=== PATIENT | male | born 1940 | race Caucasian/White ===

== ENCOUNTER → 2020-03-20 09:33 | Outpatient (BNVA) | payer MEDICARE, SELFPAY | PROVIDERS: PCP Internal Medicine; Referring Provider Internal Medicine; Visit Provider Internal Medicine | DX: Z86.718 Personal history of other venous thrombosis and embolism (principal); Z95.2 Presence of prosthetic heart valve; Z51.81 Encounter for therapeutic drug level monitoring; Z79.01 Long term (current) use of anticoagulants | CPT/HCPCS: 85610; 99211 ==

== ENCOUNTER → 2020-04-10 08:20 | Outpatient (BNVA) | payer MEDICARE, SELFPAY | PROVIDERS: PCP Internal Medicine; Visit Provider Internal Medicine | DX: Z86.718 Personal history of other venous thrombosis and embolism (principal); Z95.2 Presence of prosthetic heart valve; Z51.81 Encounter for therapeutic drug level monitoring; Z79.01 Long term (current) use of anticoagulants | CPT/HCPCS: 85610; 99211 ==

== ENCOUNTER → 2020-05-01 08:12 | Outpatient (BNVA) | payer MEDICARE, SELFPAY | PROVIDERS: PCP Internal Medicine; Visit Provider Internal Medicine | DX: Z86.718 Personal history of other venous thrombosis and embolism (principal); Z95.2 Presence of prosthetic heart valve; Z51.81 Encounter for therapeutic drug level monitoring; Z79.01 Long term (current) use of anticoagulants | CPT/HCPCS: 85610; 99211 ==

== ENCOUNTER → 2020-05-09 14:26 | Outpatient (BNVA) | payer MEDICARE, SELFPAY | PROVIDERS: PCP Internal Medicine; Referring Provider Internal Medicine; Visit Provider Internal Medicine | DX: Z86.718 Personal history of other venous thrombosis and embolism (principal); Z95.2 Presence of prosthetic heart valve; Z51.81 Encounter for therapeutic drug level monitoring; Z79.01 Long term (current) use of anticoagulants | CPT/HCPCS: 85610; 99211 ==

== ENCOUNTER → 2020-05-16 14:20 | Outpatient (BNVA) | payer MEDICARE, SELFPAY | PROVIDERS: PCP Internal Medicine; Visit Provider Internal Medicine | DX: Z86.718 Personal history of other venous thrombosis and embolism (principal); Z95.2 Presence of prosthetic heart valve; Z51.81 Encounter for therapeutic drug level monitoring; Z79.01 Long term (current) use of anticoagulants | CPT/HCPCS: 85610; 99211 ==

== ENCOUNTER → 2020-05-22 08:56 | Outpatient (BNVA) | payer MEDICARE, SELFPAY | PROVIDERS: PCP Internal Medicine; Referring Provider Internal Medicine; Visit Provider Internal Medicine Cardiovascular Disease | DX: I50.32 Chronic diastolic (congestive) heart failure (principal); R60.0 Localized edema; Z95.2 Presence of prosthetic heart valve | CPT/HCPCS: 99212 ==

== ENCOUNTER → 2020-05-30 14:25 | Outpatient (BNVA) | payer MEDICARE, SELFPAY | PROVIDERS: PCP Internal Medicine; Visit Provider Internal Medicine | DX: Z95.2 Presence of prosthetic heart valve (principal); Z51.81 Encounter for therapeutic drug level monitoring; Z79.01 Long term (current) use of anticoagulants | CPT/HCPCS: 85610; 99211 ==

== ENCOUNTER → 2020-06-14 13:04 | Outpatient (BNVA) | payer MEDICARE, SELFPAY | PROVIDERS: PCP Internal Medicine; Visit Provider Internal Medicine | DX: Z95.2 Presence of prosthetic heart valve (principal); Z51.81 Encounter for therapeutic drug level monitoring; Z79.01 Long term (current) use of anticoagulants | CPT/HCPCS: 85610; 99211 ==

== ENCOUNTER → 2020-07-07 08:27 | Outpatient (BNVA) | payer MEDICARE, SELFPAY | PROVIDERS: PCP Internal Medicine; Visit Provider Internal Medicine | DX: Z95.2 Presence of prosthetic heart valve (principal); Z51.81 Encounter for therapeutic drug level monitoring; Z79.01 Long term (current) use of anticoagulants | CPT/HCPCS: 85610; 99211 ==

== ENCOUNTER → 2020-07-20 14:14 | Outpatient (BNVA) | payer MEDICARE, SELFPAY | PROVIDERS: PCP Internal Medicine; Visit Provider Internal Medicine | DX: Z95.2 Presence of prosthetic heart valve (principal); Z51.81 Encounter for therapeutic drug level monitoring; Z79.01 Long term (current) use of anticoagulants | CPT/HCPCS: 85610; 99211 ==

== ENCOUNTER → 2020-08-03 13:55 | Outpatient (BNVA) | payer MEDICARE, SELFPAY | PROVIDERS: PCP Internal Medicine; Visit Provider Internal Medicine | DX: Z95.2 Presence of prosthetic heart valve (principal); Z51.81 Encounter for therapeutic drug level monitoring; Z79.01 Long term (current) use of anticoagulants | CPT/HCPCS: 85610; 99211 ==

== ENCOUNTER → 2020-08-17 13:56 | Outpatient (BNVA) | payer MEDICARE, SELFPAY | PROVIDERS: PCP Internal Medicine; Visit Provider Internal Medicine | DX: Z95.2 Presence of prosthetic heart valve (principal); Z51.81 Encounter for therapeutic drug level monitoring; Z79.01 Long term (current) use of anticoagulants | CPT/HCPCS: 85610; 99211 ==

== ENCOUNTER → 2020-08-31 13:57 | Outpatient (BNVA) | payer MEDICARE, SELFPAY | PROVIDERS: PCP Internal Medicine; Visit Provider Internal Medicine | DX: Z95.2 Presence of prosthetic heart valve (principal); Z51.81 Encounter for therapeutic drug level monitoring; Z79.01 Long term (current) use of anticoagulants | CPT/HCPCS: 85610; 99211 ==

== ENCOUNTER → 2020-09-14 14:00 | Outpatient (BNVA) | payer MEDICARE, SELFPAY | PROVIDERS: PCP Internal Medicine; Visit Provider Internal Medicine | DX: Z95.2 Presence of prosthetic heart valve (principal); Z51.81 Encounter for therapeutic drug level monitoring; Z79.01 Long term (current) use of anticoagulants | CPT/HCPCS: 85610; 99211 ==

== ENCOUNTER → 2020-09-28 13:56 | Outpatient (BNVA) | payer MEDICARE, SELFPAY | PROVIDERS: PCP Internal Medicine; Visit Provider Internal Medicine | DX: Z95.0 Presence of cardiac pacemaker (principal); Z79.01 Long term (current) use of anticoagulants; Z51.81 Encounter for therapeutic drug level monitoring | CPT/HCPCS: 85610; 99211 ==

== ENCOUNTER → 2020-10-05 14:09 | Outpatient (BNVA) | payer MEDICARE, SELFPAY | PROVIDERS: PCP Internal Medicine; Visit Provider Internal Medicine | DX: Z95.2 Presence of prosthetic heart valve (principal); Z79.01 Long term (current) use of anticoagulants; Z51.81 Encounter for therapeutic drug level monitoring | CPT/HCPCS: 85610; 99211 ==

== ENCOUNTER → 2020-10-19 14:15 | Outpatient (BNVA) | payer MEDICARE, SELFPAY | PROVIDERS: PCP Internal Medicine; Visit Provider Internal Medicine | DX: Z95.2 Presence of prosthetic heart valve (principal); Z79.01 Long term (current) use of anticoagulants; Z51.81 Encounter for therapeutic drug level monitoring | CPT/HCPCS: 85610; 99211 ==

== ENCOUNTER → 2020-11-02 13:52 | Outpatient (BNVA) | payer MEDICARE, SELFPAY | PROVIDERS: PCP Internal Medicine; Visit Provider Internal Medicine | DX: Z95.2 Presence of prosthetic heart valve (principal); Z51.81 Encounter for therapeutic drug level monitoring; Z79.01 Long term (current) use of anticoagulants | CPT/HCPCS: 85610; 99211 ==

== ENCOUNTER → 2020-11-16 14:10 | Outpatient (BNVA) | payer MEDICARE, SELFPAY | PROVIDERS: PCP Internal Medicine; Visit Provider Internal Medicine | DX: Z95.2 Presence of prosthetic heart valve (principal); Z51.81 Encounter for therapeutic drug level monitoring; Z79.01 Long term (current) use of anticoagulants | CPT/HCPCS: 85610; 99211 ==

== ENCOUNTER → 2020-11-27 09:03 | Outpatient (BNVA) | payer MEDICARE, SELFPAY | PROVIDERS: PCP Internal Medicine; Visit Provider Internal Medicine Cardiovascular Disease | DX: I50.32 Chronic diastolic (congestive) heart failure (principal); Z95.810 Presence of automatic (implantable) cardiac defibrillator; Z95.2 Presence of prosthetic heart valve | CPT/HCPCS: 93005; 99212 ==

== ENCOUNTER → 2020-12-07 13:52 | Outpatient (BNVA) | payer MEDICARE, SELFPAY | PROVIDERS: PCP Internal Medicine; Visit Provider Internal Medicine | DX: Z95.2 Presence of prosthetic heart valve (principal); Z51.81 Encounter for therapeutic drug level monitoring; Z79.01 Long term (current) use of anticoagulants | CPT/HCPCS: 85610; 99211 ==

== ENCOUNTER → 2020-12-14 13:53 | Outpatient (BNVA) | payer MEDICARE, SELFPAY | PROVIDERS: PCP Internal Medicine; Visit Provider Internal Medicine | DX: Z95.2 Presence of prosthetic heart valve (principal); Z51.81 Encounter for therapeutic drug level monitoring; Z79.01 Long term (current) use of anticoagulants | CPT/HCPCS: 85610; 99211 ==

== ENCOUNTER → 2020-12-28 14:02 | Outpatient (BNVA) | payer MEDICARE, SELFPAY | PROVIDERS: PCP Internal Medicine; Visit Provider Internal Medicine | DX: Z95.2 Presence of prosthetic heart valve (principal); Z51.81 Encounter for therapeutic drug level monitoring; Z79.01 Long term (current) use of anticoagulants | CPT/HCPCS: 85610; 99211 ==

== ENCOUNTER → 2021-01-04 14:08 | Outpatient (BNVA) | payer MEDICARE, SELFPAY | PROVIDERS: PCP Internal Medicine; Visit Provider Internal Medicine | DX: Z95.2 Presence of prosthetic heart valve (principal); Z51.81 Encounter for therapeutic drug level monitoring; Z79.01 Long term (current) use of anticoagulants | CPT/HCPCS: 85610; 99211 ==

== ENCOUNTER → 2021-01-18 14:00 | Outpatient (BNVA) | payer MEDICARE, SELFPAY | PROVIDERS: PCP Internal Medicine; Visit Provider Internal Medicine | DX: Z95.2 Presence of prosthetic heart valve (principal); Z51.81 Encounter for therapeutic drug level monitoring; Z79.01 Long term (current) use of anticoagulants | CPT/HCPCS: 85610; 99211 ==

== ENCOUNTER → 2021-02-01 13:42 | Outpatient (BNVA) | payer MEDICARE, SELFPAY | PROVIDERS: PCP Internal Medicine; Visit Provider Internal Medicine | DX: Z95.2 Presence of prosthetic heart valve (principal); Z51.81 Encounter for therapeutic drug level monitoring; Z79.01 Long term (current) use of anticoagulants | CPT/HCPCS: 85610; 99211 ==

== ENCOUNTER → 2021-02-15 13:56 | Outpatient (BNVA) | payer MEDICARE, SELFPAY | PROVIDERS: PCP Internal Medicine; Visit Provider Internal Medicine | DX: Z95.2 Presence of prosthetic heart valve (principal); Z51.81 Encounter for therapeutic drug level monitoring; Z79.01 Long term (current) use of anticoagulants | CPT/HCPCS: 85610; 99211 ==

== ENCOUNTER 2021-02-28 12:36 | Outpatient (REF) | payer MEDICARE, SELFPAY ==
[2021-02-28 13:34] LABS: MANUAL DIFF FLAG NO
[2021-02-28 14:07] LABS: Basophils Percent Auto 0.4 % (0-2); Eosinophils Absolute Auto 0.1 X10*3/uL (0.0-0.4); Eosinophils Percent Auto 1.8 % (0-4); Hematocrit 42.1 % (42-52); Hemoglobin 13.7 g/dl (14.0-18.0); Imm Gran Abs Auto 0.02 X10*3/uL (0.00-0.03); Imm Gran Pct Auto 0.3 % (0.0-0.4); Lymphocytes Absolute Auto 1.9 X10*3/uL (1.2-4.9); Mean Corpuscular HGB Conc 32.5 g/dl (31.0-36.0); Mean Corpuscular Hemoglobin 30.9 pg (27.0-33.0); Mean Corpuscular Volume 94.8 fL (80-98); Mean Platelet Volume 10.8 fL (9.4-12.4); Monocytes Absolute Auto 0.7 X10*3/uL (0.1-1.2); Monocytes Percent Auto 9.2 % (2-11); Neutrophils Absolute Auto 4.8 X10*3/uL (2.0-8.3); Neutrophils Percent Auto 63.3 % (45-73); Platelet Count 152 X10*3/uL (160-400); Red Blood Count 4.44 X10*6/uL (4.60-5.80); Red Cell Distribution Width 13.3 % (11.0-16.0); White Blood Count 7.6 X10*3/uL (4.8-10.8)
[2021-02-28 14:35] LABS: Alanine Aminotransferase 23 U/L (0-40); Albumin Level 4.1 g/dL (3.5-5.0); Alkaline Phosphatase 65 U/L (39-117); Anion Gap 12 (12-20); Aspartate Amino Transferase 31 U/L (5-37); Blood Urea Nitrogen 21 mg/dL (9-16); Calcium 9.7 mg/dL (8.4-10.2); Carbon Dioxide 30 mmol/L (22-29); Chloride 103 mmol/L (96-108); Cholesterol 140 mg/dL; Estimated Glomerular Filt Rate 57; Glucose Fasting 109 mg/dL (60-99); HDL Cholesterol 37 mg/dL; LDL Cholesterol Calculated 77 mg/dl; Sodium 141 mmol/L (135-145); Total Protein 7.2 g/dL (6.5-8.0); Triglycerides 130 mg/dL
[2021-02-28 14:43] LABS: Thyroid Stimulating Hormone 1.98 uIU/mL (0.32-4.0)
== END 2021-02-28 12:37 | disposition home or self-care (01) ==
LOC: HO.LAB 12:36
PROVIDERS: PCP Internal Medicine; Visit Provider Internal Medicine
DX: I11.0 Hypertensive heart disease with heart failure (principal); I50.22 Chronic systolic (congestive) heart failure; E78.5 Hyperlipidemia, unspecified; Z95.2 Presence of prosthetic heart valve
CPT/HCPCS: 36415; 80053; 80061; 84443; 85025

== ENCOUNTER → 2021-03-01 13:54 | Outpatient (BNVA) | payer MEDICARE, SELFPAY | PROVIDERS: PCP Internal Medicine; Visit Provider Internal Medicine | DX: Z95.2 Presence of prosthetic heart valve (principal); Z51.81 Encounter for therapeutic drug level monitoring; Z79.01 Long term (current) use of anticoagulants | CPT/HCPCS: 85610; 99211 ==

== ENCOUNTER → 2021-03-05 09:29 | Outpatient (BNVA) | payer MEDICARE, SELFPAY | PROVIDERS: PCP Internal Medicine; Referring Provider Internal Medicine; Visit Provider Internal Medicine Cardiovascular Disease | DX: I50.32 Chronic diastolic (congestive) heart failure (principal); Z95.2 Presence of prosthetic heart valve; Z95.810 Presence of automatic (implantable) cardiac defibrillator | CPT/HCPCS: 99212 ==

== ENCOUNTER → 2021-03-15 14:04 | Outpatient (BNVA) | payer MEDICARE, SELFPAY | PROVIDERS: PCP Internal Medicine; Visit Provider Internal Medicine | DX: Z95.2 Presence of prosthetic heart valve (principal); Z51.81 Encounter for therapeutic drug level monitoring; Z79.01 Long term (current) use of anticoagulants | CPT/HCPCS: 85610; 99211 ==

== ENCOUNTER → 2021-03-29 10:26 | Outpatient (BNVA) | payer MEDICARE, SELFPAY | PROVIDERS: PCP Internal Medicine; Visit Provider Internal Medicine | DX: Z95.2 Presence of prosthetic heart valve (principal); Z51.81 Encounter for therapeutic drug level monitoring; Z79.01 Long term (current) use of anticoagulants | CPT/HCPCS: 85610; 99211 ==

== ENCOUNTER → 2021-04-12 14:05 | Outpatient (BNVA) | payer MEDICARE, SELFPAY | PROVIDERS: PCP Internal Medicine; Visit Provider Internal Medicine | DX: Z95.2 Presence of prosthetic heart valve (principal); Z51.81 Encounter for therapeutic drug level monitoring; Z79.01 Long term (current) use of anticoagulants | CPT/HCPCS: 85610; 99211 ==

== ENCOUNTER → 2021-04-26 13:59 | Outpatient (BNVA) | payer MEDICARE, SELFPAY | PROVIDERS: PCP Internal Medicine; Visit Provider Internal Medicine | DX: Z95.2 Presence of prosthetic heart valve (principal); Z79.01 Long term (current) use of anticoagulants; Z51.81 Encounter for therapeutic drug level monitoring | CPT/HCPCS: 85610; 99211 ==

== ENCOUNTER → 2021-05-15 14:01 | Outpatient (BNVA) | payer MEDICARE, SELFPAY | PROVIDERS: PCP Internal Medicine; Visit Provider Internal Medicine | DX: Z95.2 Presence of prosthetic heart valve (principal); Z51.81 Encounter for therapeutic drug level monitoring; Z79.01 Long term (current) use of anticoagulants | CPT/HCPCS: 85610; 99211 ==

== ENCOUNTER → 2021-05-24 14:05 | Outpatient (BNVA) | payer MEDICARE, SELFPAY | PROVIDERS: PCP Internal Medicine; Visit Provider Internal Medicine | DX: Z95.2 Presence of prosthetic heart valve (principal); Z51.81 Encounter for therapeutic drug level monitoring; Z79.01 Long term (current) use of anticoagulants | CPT/HCPCS: 85610; 99211 ==

== ENCOUNTER → 2021-05-28 09:22 | Outpatient (BNVA) | payer MEDICARE, SELFPAY | PROVIDERS: PCP Internal Medicine; Visit Provider Internal Medicine Cardiovascular Disease | DX: I50.32 Chronic diastolic (congestive) heart failure (principal); Z95.2 Presence of prosthetic heart valve; Z95.810 Presence of automatic (implantable) cardiac defibrillator; Z79.82 Long term (current) use of aspirin | CPT/HCPCS: 99212 ==

== ENCOUNTER → 2021-06-07 13:57 | Outpatient (BNVA) | payer MEDICARE, SELFPAY | PROVIDERS: PCP Internal Medicine; Visit Provider Internal Medicine | DX: Z95.2 Presence of prosthetic heart valve (principal); Z51.81 Encounter for therapeutic drug level monitoring; Z79.01 Long term (current) use of anticoagulants | CPT/HCPCS: 85610; 99211 ==

== ENCOUNTER → 2021-06-14 14:03 | Outpatient (BNVA) | payer MEDICARE, SELFPAY | PROVIDERS: PCP Internal Medicine; Visit Provider Internal Medicine | DX: Z95.2 Presence of prosthetic heart valve (principal); Z51.81 Encounter for therapeutic drug level monitoring; Z79.01 Long term (current) use of anticoagulants | CPT/HCPCS: 85610; 99211 ==

== ENCOUNTER → 2021-06-28 13:58 | Outpatient (BNVA) | payer MEDICARE, SELFPAY | PROVIDERS: PCP Internal Medicine; Visit Provider Internal Medicine | DX: Z95.2 Presence of prosthetic heart valve (principal); Z51.81 Encounter for therapeutic drug level monitoring; Z79.01 Long term (current) use of anticoagulants | CPT/HCPCS: 85610; 99211 ==

== ENCOUNTER → 2021-07-12 13:59 | Outpatient (BNVA) | payer MEDICARE, SELFPAY | PROVIDERS: PCP Internal Medicine; Visit Provider Internal Medicine | DX: Z95.2 Presence of prosthetic heart valve (principal); Z51.81 Encounter for therapeutic drug level monitoring; Z79.01 Long term (current) use of anticoagulants | CPT/HCPCS: 85610; 99211 ==

== ENCOUNTER → 2021-07-26 14:06 | Outpatient (BNVA) | payer MEDICARE, SELFPAY | PROVIDERS: PCP Internal Medicine; Visit Provider Internal Medicine | DX: Z95.2 Presence of prosthetic heart valve (principal); Z51.81 Encounter for therapeutic drug level monitoring; Z79.01 Long term (current) use of anticoagulants | CPT/HCPCS: 85610; 99211 ==

== ENCOUNTER → 2021-08-02 14:03 | Outpatient (BNVA) | payer MEDICARE, SELFPAY | PROVIDERS: PCP Internal Medicine; Visit Provider Internal Medicine | DX: Z95.2 Presence of prosthetic heart valve (principal); Z51.81 Encounter for therapeutic drug level monitoring; Z79.01 Long term (current) use of anticoagulants | CPT/HCPCS: 85610; 99211 ==

== ENCOUNTER → 2021-08-16 14:01 | Outpatient (BNVA) | payer MEDICARE, SELFPAY | PROVIDERS: PCP Internal Medicine; Visit Provider Internal Medicine | DX: Z95.2 Presence of prosthetic heart valve (principal); Z51.81 Encounter for therapeutic drug level monitoring; Z79.01 Long term (current) use of anticoagulants | CPT/HCPCS: 85610; 99211 ==

== ENCOUNTER → 2021-08-30 14:06 | Outpatient (BNVA) | payer MEDICARE, SELFPAY | PROVIDERS: PCP Internal Medicine; Visit Provider Internal Medicine | DX: Z95.2 Presence of prosthetic heart valve (principal); Z79.01 Long term (current) use of anticoagulants; Z51.81 Encounter for therapeutic drug level monitoring | CPT/HCPCS: 85610; 99211 ==

== ENCOUNTER → 2021-09-04 14:03 | Outpatient (BNVA) | payer MEDICARE, SELFPAY | PROVIDERS: PCP Internal Medicine; Visit Provider Internal Medicine | DX: Z95.2 Presence of prosthetic heart valve (principal); Z51.81 Encounter for therapeutic drug level monitoring; Z79.01 Long term (current) use of anticoagulants | CPT/HCPCS: 85610; 99211 ==

== ENCOUNTER → 2021-09-11 07:29 | Outpatient (REF) | payer MEDICARE, SELFPAY ==
--- NOTE | 2021-09-11 07:33 | CA_ITS ---
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 The visually estimated ejection fraction is between 65-70%. - Mildly increased right ventricular cavity size. - A mechanical prosthetic aortic valve is present. The prosthetic aortic valve appears to be functioning normally. - Mild pulmonary hypertension is present. - There is mild dilatation of the ascending aorta measuring 4.20 cm. Findings Left Ventricle Normal left ventricular cavity size. There is mildly increased left ventricular wall thickness. The left ventricular systolic function is normal. The visually estimated ejection fraction is between 65-70%. There is no evidence of regional wall motion abnormalities. E/E prime ratio is >15, consistent with elevated filling pressures. Evidence suggests grade I (mild) diastolic dysfunction. Right Ventricle Mildly increased right ventricular cavity size. There is normal right ventricular systolic function. There is a pacemaker wire seen in the right ventricle. Atria The left atrium is mildly dilated. The right atrium is normal in size. Aortic Valve A mechanical prosthetic aortic valve is present. The prosthetic aortic valve appears to be functioning normally. The peak aortic velocity is 3.03 m/s with a calculated peak gradient of 37 mmHg. The mean gradient is 21 mmHg. The aortic valve area is 1.31 cm2. Acceleration time 61ms. Mitral Valve There is mild mitral annular calcification. There is trace mitral valve regurgitation. There is no mitral valve stenosis. Pulmonic Valve The pulmonic valve was not well visualized. Tricuspid Valve There is mild tricuspid valve regurgitation. The right ventricular systolic pressure is 37 mmHg. Mild pulmonary hypertension is present. Great Vessels There is mild dilatation of the ascending aorta measuring 4.20 cm. Small plaque is seen in the sinuses of Valsalva. Venous The inferior vena cava was not well visualized. The inferior vena cava is normal in size. Pericardium/Pleural There is no evidence of pericardial effusion. Prior Study Comparison Changes noted compared to prior study dated: 06/07/2019. LVOT diameter is measured slightly larger than previous study; hence calculated effective orifice area is also higher. Overall, probably normal function. LVEF also higher than prior study. Ascending aortic size slightly larger. Measurements 2D Linear Measurements IVSd: 1.17 0.6-0.9/0.6-1.0 cm LVIDd: 5.01 3.9-5.3/4.2-5.9 cm LVIDd Index: 2.14 2.4-3.2/2.2-3.1 cm/m2 LVIDs: 3.02 2.0-3.6 cm LVPWd: 1.10 0.7-1.1 cm LA Diam: 4.90 2.7-3.8/3.0-4.0 cm LAIDs Index: 2.09 1.5-2.3 cm/m2 LV Mass: 270.48 67-162/88-224 g LV Mass Index: 115.59 43-95/49-115 g/m2 LVOT Diam: 2.10 3.0+(-)1.3 cm Mitral Valve MV Pk E: 1.11 MV PK A: 1.14 MV Decel Time: 247.00 E/A: 1.00 E'Lateral: 6.42 E'Medial: 6.31 E/E' Med: 17.60 E/E' Lat: 17.30 PHT: 72.00 MVA PHT: 3.06 Decel Avery: 4.49 Aortic Valve AoV Pk Jordi: 3.03 AoV Mn Jodri: 2.14 AoV VTI: 0.55 AoV Pk Grad: 37.00 Aov Mn Grad: 21.00 NA Cont.VTI: 1.31 LVOT LVOT Pk Jordi: 1.00 LVOT Mn Jordi: 0.75 LVOT VTI: 0.21 LVOT Pk Grad: 4.00 LVOT Mn Grad: 2.00 LVOT Diam: 2.10 LVOT Area: 3.46 Diastolic Function MV Pk E: 1.11 MV Pk A: 1.14 E/A: 1.00 E'Medial: 6.31 E/E' Med: 17.60 E' Laterial: 6.42 E/E' Lat: 17.30 Right Ventricle TAPSE (mm): 1.83 TVS' Jordi: 11.00 Tricuspid Valve TR Pk Jordi: 2.67 TR Pk Grad: 29.00 RA Press: 8.00 RVSP: 37.00 Great Vessels Aorta Sinus of Valsalva: 3.41 2.0-3.[address] [place]: 2.22 1.7-3.4 cm Ao Asc: 4.20 2.1-3.4 cm Updated in Other Vendor System with Status of Final Payam Linda MD electronically signed on 09/12/2021 11:11:26 AM with status of Final
== END ==
LOC: HO.CARD 07:29
PROVIDERS: Visit Provider Nurse Practitioner Family
DX: I50.32 Chronic diastolic (congestive) heart failure (principal); Z95.2 Presence of prosthetic heart valve
CPT/HCPCS: 93306

== ENCOUNTER → 2021-09-13 13:59 | Outpatient (BNVA) | payer MEDICARE, SELFPAY | PROVIDERS: PCP Internal Medicine; Visit Provider Internal Medicine | DX: Z95.2 Presence of prosthetic heart valve (principal); Z51.81 Encounter for therapeutic drug level monitoring; Z79.01 Long term (current) use of anticoagulants | CPT/HCPCS: 85610; 99211 ==

== ENCOUNTER → 2021-09-17 09:14 | Outpatient (BNVA) | payer MEDICARE, SELFPAY | PROVIDERS: PCP Internal Medicine; Visit Provider Internal Medicine Cardiovascular Disease | DX: I50.32 Chronic diastolic (congestive) heart failure (principal); Z95.810 Presence of automatic (implantable) cardiac defibrillator | CPT/HCPCS: 93005; 99212 ==

== ENCOUNTER 2021-09-20 13:58 | Outpatient (REF) | payer MEDICARE, SELFPAY ==
[2021-09-20 14:36] LABS: Prothrombin Time 111.2 SEC (9.9-13.0)
[2021-09-20 14:50] LABS: INTERNATIONAL NORM RATIO 9.3 (0.9-1.1)
== END 2021-09-20 13:59 | disposition home or self-care (01) ==
LOC: HO.LAB 13:58
PROVIDERS: PCP Internal Medicine; Visit Provider Internal Medicine
DX: Z95.2 Presence of prosthetic heart valve (principal); Z51.81 Encounter for therapeutic drug level monitoring; Z79.01 Long term (current) use of anticoagulants
CPT/HCPCS: 36415; 85610; 99212

== ENCOUNTER → 2021-09-21 09:54 | Outpatient (BNVA) | payer MEDICARE, SELFPAY | PROVIDERS: PCP Internal Medicine; Visit Provider Internal Medicine | DX: Z95.2 Presence of prosthetic heart valve (principal); Z51.81 Encounter for therapeutic drug level monitoring; Z79.01 Long term (current) use of anticoagulants | CPT/HCPCS: 85610; 99211 ==

== ENCOUNTER → 2021-09-25 14:07 | Outpatient (BNVA) | payer MEDICARE, SELFPAY | PROVIDERS: PCP Internal Medicine; Visit Provider Internal Medicine | DX: Z79.01 Long term (current) use of anticoagulants (principal); Z87.891 Personal history of nicotine dependence; Z88.0 Allergy status to penicillin; Z79.82 Long term (current) use of aspirin; Z79.899 Other long term (current) drug therapy | CPT/HCPCS: 85610; 99211 ==

== ENCOUNTER → 2021-10-04 14:03 | Outpatient (BNVA) | payer MEDICARE, SELFPAY | PROVIDERS: PCP Internal Medicine; Visit Provider Internal Medicine | DX: Z95.2 Presence of prosthetic heart valve (principal); Z79.01 Long term (current) use of anticoagulants; Z51.81 Encounter for therapeutic drug level monitoring | CPT/HCPCS: 85610; 99211 ==

== ENCOUNTER → 2021-10-18 14:00 | Outpatient (BNVA) | payer MEDICARE, SELFPAY | PROVIDERS: PCP Internal Medicine; Visit Provider Internal Medicine | DX: Z95.2 Presence of prosthetic heart valve (principal); Z79.01 Long term (current) use of anticoagulants; Z51.81 Encounter for therapeutic drug level monitoring | CPT/HCPCS: 85610; 99211 ==

== ENCOUNTER → 2021-11-01 14:06 | Outpatient (BNVA) | payer MEDICARE, SELFPAY | PROVIDERS: PCP Internal Medicine; Visit Provider Internal Medicine | DX: Z95.2 Presence of prosthetic heart valve (principal); Z79.01 Long term (current) use of anticoagulants; Z51.81 Encounter for therapeutic drug level monitoring | CPT/HCPCS: 85610; 99211 ==

== ENCOUNTER → 2021-11-15 13:51 | Outpatient (BNVA) | payer MEDICARE, SELFPAY | PROVIDERS: PCP Internal Medicine; Visit Provider Internal Medicine | DX: Z95.2 Presence of prosthetic heart valve (principal); Z79.01 Long term (current) use of anticoagulants; Z51.81 Encounter for therapeutic drug level monitoring | CPT/HCPCS: 85610; 99211 ==

== ENCOUNTER 2021-11-28 08:09 | Outpatient (REF) | payer MEDICARE, SELFPAY ==
[2021-11-28 08:47] LABS: MANUAL DIFF FLAG NO
[2021-11-28 09:40] LABS: Basophils Percent Auto 0.5 % (0-2); Eosinophils Absolute Auto 0.2 X10*3/uL (0.0-0.4); Eosinophils Percent Auto 2.1 % (0-4); Hematocrit 44.2 % (42.0-52.0); Hemoglobin 14.2 g/dl (14.0-18.0); Imm Gran Abs Auto 0.03 X10*3/uL (0.00-0.03); Imm Gran Pct Auto 0.4 % (0.0-0.4); Lymphocytes Absolute Auto 1.7 X10*3/uL (1.2-4.9); Lymphocytes Percent Auto 21.9 % (20-40); Mean Corpuscular HGB Conc 32.1 g/dl (31.0-36.0); Mean Corpuscular Hemoglobin 30.7 pg (27.0-33.0); Mean Corpuscular Volume 95.7 fL (80.0-98.0); Mean Platelet Volume 10.4 fL (9.4-12.4); Monocytes Absolute Auto 0.8 X10*3/uL (0.1-1.2); Monocytes Percent Auto 10.6 % (2-11); Neutrophils Absolute Auto 4.9 x10*3/uL (2.0-8.3); Neutrophils Percent Auto 64.5 % (45-73); Platelet Count 158 X10*3/uL (160-400); Red Blood Count 4.62 X10*6/uL (4.60-5.80); Red Cell Distribution Width 13.2 % (11.0-16.0); White Blood Count 7.6 X10*3/uL (4.8-10.8)
[2021-11-28 10:10] LABS: Alanine Aminotransferase 20 U/L (0-40); Alkaline Phosphatase 69 U/L (39-117); Anion Gap 10 (12-20); Aspartate Amino Transferase 32 U/L (5-37); Bilirubin Total 1.1 mg/dL (0.0-1.0); Blood Urea Nitrogen 21 mg/dL (9-16); Calcium 9.2 mg/dL (8.4-10.2); Carbon Dioxide 29 mmol/L (22-29); Chloride 107 mmol/L (96-108); Cholesterol 132 mg/dL; Estimated Glomerular Filt Rate > 60; Glucose Fasting 97 mg/dL (60-99); HDL Cholesterol 38 mg/dL; LDL Cholesterol Calculated 80 mg/dl; Potassium 4.2 mmol/L (3.3-5.1); Sodium 142 mmol/L (135-145); Total Protein 7.1 g/dL (6.5-8.0); Triglycerides 70 mg/dL
[2021-11-28 10:25] LABS: Thyroid Stimulating Hormone 1.94 uIU/mL (0.32-4.0); Vitamin D 25-OH Total 36.9 ng/mL (>30)
== END 2021-11-28 08:10 | disposition home or self-care (01) ==
LOC: HO.LAB 08:09
PROVIDERS: PCP Internal Medicine; Visit Provider Internal Medicine
DX: I11.0 Hypertensive heart disease with heart failure (principal); I50.22 Chronic systolic (congestive) heart failure; E78.5 Hyperlipidemia, unspecified; Z95.2 Presence of prosthetic heart valve
CPT/HCPCS: 36415; 80053; 80061; 82306; 84443; 85025

== ENCOUNTER → 2021-11-29 14:02 | Outpatient (BNVA) | payer MEDICARE, SELFPAY | PROVIDERS: PCP Internal Medicine; Visit Provider Internal Medicine | DX: Z95.2 Presence of prosthetic heart valve (principal); Z79.01 Long term (current) use of anticoagulants; Z51.81 Encounter for therapeutic drug level monitoring | CPT/HCPCS: 85610; 99211 ==

== ENCOUNTER → 2021-12-13 14:14 | Outpatient (BNVA) | payer MEDICARE, SELFPAY | PROVIDERS: PCP Internal Medicine; Visit Provider Internal Medicine | DX: Z95.2 Presence of prosthetic heart valve (principal); Z51.81 Encounter for therapeutic drug level monitoring; Z79.01 Long term (current) use of anticoagulants | CPT/HCPCS: 85610; 99211 ==

== ENCOUNTER → 2021-12-27 13:58 | Outpatient (BNVA) | payer MEDICARE, SELFPAY | PROVIDERS: PCP Internal Medicine; Visit Provider Internal Medicine | DX: Z95.2 Presence of prosthetic heart valve (principal); Z51.81 Encounter for therapeutic drug level monitoring; Z79.01 Long term (current) use of anticoagulants | CPT/HCPCS: 85610; 99211 ==

== ENCOUNTER → 2022-01-10 14:00 | Outpatient (BNVA) | payer MEDICARE, SELFPAY | PROVIDERS: PCP Internal Medicine; Visit Provider Internal Medicine | DX: Z95.2 Presence of prosthetic heart valve (principal); Z79.01 Long term (current) use of anticoagulants; Z51.81 Encounter for therapeutic drug level monitoring | CPT/HCPCS: 85610; 99211 ==

== ENCOUNTER → 2022-01-24 13:57 | Outpatient (BNVA) | payer MEDICARE, SELFPAY | PROVIDERS: PCP Internal Medicine; Visit Provider Internal Medicine | DX: Z95.2 Presence of prosthetic heart valve (principal); Z79.01 Long term (current) use of anticoagulants; Z51.81 Encounter for therapeutic drug level monitoring | CPT/HCPCS: 85610; 99211 ==

== ENCOUNTER → 2022-02-05 13:50 | Outpatient (BNVA) | payer MEDICARE, SELFPAY | PROVIDERS: PCP Internal Medicine; Visit Provider Internal Medicine | DX: Z95.2 Presence of prosthetic heart valve (principal); Z79.01 Long term (current) use of anticoagulants; Z51.81 Encounter for therapeutic drug level monitoring | CPT/HCPCS: 85610; 99211 ==

== ENCOUNTER → 2022-02-21 13:56 | Outpatient (BNVA) | payer MEDICARE, SELFPAY | PROVIDERS: PCP Internal Medicine; Visit Provider Internal Medicine | DX: Z45.02 Encounter for adjustment and management of automatic implantable cardiac defibrillator (principal); I25.10 Atherosclerotic heart disease of native coronary artery without angina pectoris; I50.32 Chronic diastolic (congestive) heart failure; Z95.2 Presence of prosthetic heart valve; Z79.01 Long term (current) use of anticoagulants; Z51.81 Encounter for therapeutic drug level monitoring | CPT/HCPCS: 85610; 99211; 99212 ==

== ENCOUNTER → 2022-03-07 13:55 | Outpatient (BNVA) | payer MEDICARE, SELFPAY | PROVIDERS: PCP Internal Medicine; Visit Provider Internal Medicine | DX: Z95.2 Presence of prosthetic heart valve (principal); Z79.01 Long term (current) use of anticoagulants; Z51.81 Encounter for therapeutic drug level monitoring | CPT/HCPCS: 85610; 99211 ==

== ENCOUNTER → 2022-03-26 14:09 | Outpatient (BNVA) | payer MEDICARE, SELFPAY | PROVIDERS: PCP Internal Medicine; Visit Provider Internal Medicine | DX: Z95.2 Presence of prosthetic heart valve (principal); Z79.01 Long term (current) use of anticoagulants; Z51.81 Encounter for therapeutic drug level monitoring | CPT/HCPCS: 85610; 99211 ==

== ENCOUNTER → 2022-04-11 13:58 | Outpatient (BNVA) | payer MEDICARE, SELFPAY | PROVIDERS: PCP Internal Medicine; Visit Provider Internal Medicine | DX: Z95.2 Presence of prosthetic heart valve (principal); Z79.01 Long term (current) use of anticoagulants; Z51.81 Encounter for therapeutic drug level monitoring | CPT/HCPCS: 85610; 99211 ==

== ENCOUNTER → 2022-04-25 13:59 | Outpatient (BNVA) | payer MEDICARE, SELFPAY | PROVIDERS: PCP Internal Medicine; Visit Provider Internal Medicine | DX: Z95.2 Presence of prosthetic heart valve (principal); Z79.01 Long term (current) use of anticoagulants; Z51.81 Encounter for therapeutic drug level monitoring | CPT/HCPCS: 85610; 99211 ==

== ENCOUNTER → 2022-05-14 14:10 | Outpatient (BNVA) | payer MEDICARE, SELFPAY | PROVIDERS: PCP Internal Medicine; Visit Provider Internal Medicine | DX: Z95.2 Presence of prosthetic heart valve (principal); Z79.01 Long term (current) use of anticoagulants; Z51.81 Encounter for therapeutic drug level monitoring | CPT/HCPCS: 85610; 99211 ==

== ENCOUNTER → 2022-05-28 14:11 | Outpatient (BNVA) | payer MEDICARE, SELFPAY | PROVIDERS: PCP Internal Medicine; Visit Provider Internal Medicine | DX: Z95.2 Presence of prosthetic heart valve (principal); Z79.01 Long term (current) use of anticoagulants; Z51.81 Encounter for therapeutic drug level monitoring | CPT/HCPCS: 85610; 99211 ==

== ENCOUNTER → 2022-06-06 13:58 | Outpatient (BNVA) | payer MEDICARE, SELFPAY | PROVIDERS: PCP Internal Medicine; Visit Provider Internal Medicine | DX: Z95.2 Presence of prosthetic heart valve (principal); Z79.01 Long term (current) use of anticoagulants; Z51.81 Encounter for therapeutic drug level monitoring | CPT/HCPCS: 85610; 99211 ==

== ENCOUNTER → 2022-06-20 13:58 | Outpatient (BNVA) | payer MEDICARE, SELFPAY | PROVIDERS: PCP Internal Medicine; Visit Provider Internal Medicine | DX: Z95.2 Presence of prosthetic heart valve (principal); Z79.01 Long term (current) use of anticoagulants; Z51.81 Encounter for therapeutic drug level monitoring | CPT/HCPCS: 85610; 99211 ==

== ENCOUNTER → 2022-07-01 08:55 | Outpatient (BNVA) | payer MEDICARE, SELFPAY | PROVIDERS: PCP Internal Medicine; Referring Provider Internal Medicine; Visit Provider Internal Medicine Cardiovascular Disease | DX: I50.32 Chronic diastolic (congestive) heart failure (principal); R60.0 Localized edema; Z95.2 Presence of prosthetic heart valve | CPT/HCPCS: 93005; 99212 ==

== ENCOUNTER → 2022-07-04 13:58 | Outpatient (BNVA) | payer MEDICARE, SELFPAY | PROVIDERS: PCP Internal Medicine; Visit Provider Internal Medicine | DX: Z95.2 Presence of prosthetic heart valve (principal); Z79.01 Long term (current) use of anticoagulants; Z51.81 Encounter for therapeutic drug level monitoring | CPT/HCPCS: 85610; 99211 ==

== ENCOUNTER → 2022-07-11 14:03 | Outpatient (BNVA) | payer MEDICARE, SELFPAY | PROVIDERS: PCP Internal Medicine; Visit Provider Internal Medicine | DX: Z95.2 Presence of prosthetic heart valve (principal); Z79.01 Long term (current) use of anticoagulants; Z51.81 Encounter for therapeutic drug level monitoring | CPT/HCPCS: 85610; 99211 ==

== ENCOUNTER → 2022-07-18 14:08 | Outpatient (BNVA) | payer MEDICARE, SELFPAY | PROVIDERS: PCP Internal Medicine; Visit Provider Internal Medicine | DX: Z95.2 Presence of prosthetic heart valve (principal); Z79.01 Long term (current) use of anticoagulants; Z51.81 Encounter for therapeutic drug level monitoring | CPT/HCPCS: 85610; 99211 ==

== ENCOUNTER → 2022-08-01 14:08 | Outpatient (BNVA) | payer MEDICARE, SELFPAY | PROVIDERS: PCP Internal Medicine; Visit Provider Internal Medicine | DX: Z95.2 Presence of prosthetic heart valve (principal); Z51.81 Encounter for therapeutic drug level monitoring; Z79.01 Long term (current) use of anticoagulants | CPT/HCPCS: 85610; 99211 ==

== ENCOUNTER → 2022-08-15 13:57 | Outpatient (BNVA) | payer MEDICARE, SELFPAY | PROVIDERS: PCP Internal Medicine; Visit Provider Internal Medicine | DX: Z95.2 Presence of prosthetic heart valve (principal); Z79.01 Long term (current) use of anticoagulants; Z51.81 Encounter for therapeutic drug level monitoring | CPT/HCPCS: 85610; 99211 ==

== ENCOUNTER 2022-08-20 09:56 | Outpatient (REF) | payer MEDICARE, SELFPAY ==
[2022-08-20 11:15] LABS: MANUAL DIFF FLAG NO
[2022-08-20 11:36] LABS: Basophils Absolute Auto 0.1 X10*3/uL (0.0-0.2); Basophils Percent Auto 0.6 % (0-2); Eosinophils Absolute Auto 0.1 X10*3/uL (0.0-0.4); Eosinophils Percent Auto 1.6 % (0-4); Hematocrit 43.8 % (42.0-52.0); Hemoglobin 14.3 g/dl (14.0-18.0); Imm Gran Abs Auto 0.04 X10*3/uL (0.00-0.03); Imm Gran Pct Auto 0.5 % (0.0-0.4); Lymphocytes Absolute Auto 2.4 X10*3/uL (1.2-4.9); Lymphocytes Percent Auto 29.3 % (20-40); Mean Corpuscular HGB Conc 32.6 g/dl (31.0-36.0); Mean Corpuscular Hemoglobin 31.2 pg (27.0-33.0); Mean Corpuscular Volume 95.4 fL (80.0-98.0); Mean Platelet Volume 10.7 fL (9.4-12.4); Monocytes Percent Auto 11.4 % (2-11); Neutrophils Absolute Auto 4.7 x10*3/uL (2.0-8.3); Neutrophils Percent Auto 56.6 % (45-73); Platelet Count 163 X10*3/uL (160-400); Red Blood Count 4.59 X10*6/uL (4.60-5.80); Red Cell Distribution Width 13.1 % (11.0-16.0); White Blood Count 8.3 X10*3/uL (4.8-10.8)
[2022-08-20 12:33] LABS: Alanine Aminotransferase 35 U/L (0-40); Alkaline Phosphatase 73 U/L (39-117); Anion Gap 14 (12-20); Aspartate Amino Transferase 41 U/L (5-37); Blood Urea Nitrogen 20 mg/dL (9-16); Calcium 8.9 mg/dL (8.4-10.2); Carbon Dioxide 29 mmol/L (22-29); Chloride 105 mmol/L (96-108); Cholesterol 130 mg/dL; Estimated Glomerular Filt Rate 58; Glucose Fasting 80 mg/dL (60-99); HDL Cholesterol 34 mg/dL; LDL Cholesterol Calculated 75 mg/dl; Potassium 4.8 mmol/L (3.3-5.1); Sodium 143 mmol/L (135-145); Thyroid Stimulating Hormone 2.69 uIU/mL (0.32-4.0); Triglycerides 109 mg/dL
== END 2022-08-20 09:57 | disposition home or self-care (01) ==
LOC: HO.HMGCLDS 09:56
PROVIDERS: PCP Internal Medicine; Visit Provider Internal Medicine
DX: I11.0 Hypertensive heart disease with heart failure (principal); I50.22 Chronic systolic (congestive) heart failure; E78.5 Hyperlipidemia, unspecified; Z95.2 Presence of prosthetic heart valve
CPT/HCPCS: 36415; 80053; 80061; 84443; 85025

== ENCOUNTER → 2022-08-29 13:59 | Outpatient (BNVA) | payer MEDICARE, SELFPAY | PROVIDERS: PCP Internal Medicine; Visit Provider Internal Medicine | DX: Z95.2 Presence of prosthetic heart valve (principal); Z79.01 Long term (current) use of anticoagulants; Z51.81 Encounter for therapeutic drug level monitoring | CPT/HCPCS: 85610; 99211 ==

== ENCOUNTER → 2022-09-12 14:01 | Outpatient (BNVA) | payer MEDICARE, SELFPAY | PROVIDERS: PCP Internal Medicine; Visit Provider Internal Medicine | DX: Z95.2 Presence of prosthetic heart valve (principal); Z79.01 Long term (current) use of anticoagulants; Z51.81 Encounter for therapeutic drug level monitoring | CPT/HCPCS: 85610; 99211 ==

== ENCOUNTER → 2022-09-26 13:58 | Outpatient (BNVA) | payer MEDICARE, SELFPAY | PROVIDERS: PCP Internal Medicine; Visit Provider Internal Medicine | DX: Z95.2 Presence of prosthetic heart valve (principal); Z51.81 Encounter for therapeutic drug level monitoring; Z79.01 Long term (current) use of anticoagulants | CPT/HCPCS: 85610; 99211 ==

== ENCOUNTER → 2022-10-10 14:20 | Outpatient (BNVA) | payer MEDICARE, SELFPAY | PROVIDERS: PCP Internal Medicine; Visit Provider Internal Medicine | DX: Z95.2 Presence of prosthetic heart valve (principal); Z79.01 Long term (current) use of anticoagulants; Z51.81 Encounter for therapeutic drug level monitoring | CPT/HCPCS: 85610; 99211 ==

== ENCOUNTER → 2022-10-24 13:59 | Outpatient (BNVA) | payer MEDICARE, SELFPAY | PROVIDERS: PCP Internal Medicine; Visit Provider Internal Medicine | DX: Z95.2 Presence of prosthetic heart valve (principal); Z79.01 Long term (current) use of anticoagulants; Z51.81 Encounter for therapeutic drug level monitoring | CPT/HCPCS: 85610; 99211 ==

== ENCOUNTER → 2022-11-07 14:02 | Outpatient (BNVA) | payer MEDICARE, SELFPAY | PROVIDERS: PCP Internal Medicine; Visit Provider Internal Medicine | DX: Z95.2 Presence of prosthetic heart valve (principal); Z79.01 Long term (current) use of anticoagulants; Z51.81 Encounter for therapeutic drug level monitoring | CPT/HCPCS: 85610; 99211 ==

== ENCOUNTER → 2022-11-21 13:57 | Outpatient (BNVA) | payer MEDICARE, SELFPAY | PROVIDERS: PCP Internal Medicine; Visit Provider Internal Medicine | DX: Z95.2 Presence of prosthetic heart valve (principal); Z79.01 Long term (current) use of anticoagulants; Z51.81 Encounter for therapeutic drug level monitoring | CPT/HCPCS: 85610; 99211 ==

== ENCOUNTER → 2022-11-28 14:07 | Outpatient (BNVA) | payer MEDICARE, SELFPAY | PROVIDERS: PCP Internal Medicine; Visit Provider Internal Medicine | DX: Z95.2 Presence of prosthetic heart valve (principal); Z79.01 Long term (current) use of anticoagulants; Z51.81 Encounter for therapeutic drug level monitoring | CPT/HCPCS: 85610; 99211 ==

== ENCOUNTER → 2022-12-05 14:04 | Outpatient (BNVA) | payer MEDICARE, SELFPAY | PROVIDERS: PCP Internal Medicine; Visit Provider Internal Medicine | DX: Z95.2 Presence of prosthetic heart valve (principal); Z79.01 Long term (current) use of anticoagulants; Z51.81 Encounter for therapeutic drug level monitoring | CPT/HCPCS: 85610; 99211 ==

== ENCOUNTER → 2022-12-12 13:59 | Outpatient (BNVA) | payer MEDICARE, SELFPAY | PROVIDERS: PCP Internal Medicine; Visit Provider Internal Medicine | DX: Z95.2 Presence of prosthetic heart valve (principal); Z79.01 Long term (current) use of anticoagulants; Z51.81 Encounter for therapeutic drug level monitoring | CPT/HCPCS: 85610; 99211 ==

== ENCOUNTER 2022-12-23 12:37 | Outpatient (AMB) | payer MEDICARE, SELFPAY ==
[2022-12-23 12:40] VITALS: BP 142/80; PULSE 67; BMI 38.0
--- NOTE | 2022-12-23 12:40 | MHC.OFFVIS ---
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 He has known history of previous bypass surgery and mechanical aortic valve replacement. He was seen for new onset heart failure and was found to have cardiomyopathy with severely reduced ejection fraction. 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 He was sent for a Bi V AICD placement which happened in February 2019 at [facility] by Dr. Cruz. His repeat echocardiogram in May 2019 showing ejection fraction of 50-55%. It also showed some moderate aortic stenosis and concern for patient prosthesis mismatch. He has chronic right lower extremity edema due to a blood clot in the past. He has been doing well since then. He has no chest discomfort shortness of breath. Clinically not in heart failure. Taking medications regularly. Stable on follow-up. 07/01/22: On follow-up he is doing well. He is sayng he wakes up in the middle night and cannot go back to sleep for few hours. He is saying he does not wake up for shortness of breath or PND. Overall clinically stable. 12/23/22: He returns for follow-up. He has been taking medications regularly. His denying any chest discomfort or significant shortness of breath. No significant orthopnea or PND. He has peripheral edema which is chronic. The right leg is worse than the left due to previous DVT. PFSH Medical History (Updated 02/22/22 @ 16:16 by TUCKER De La Rosa) Current use of anticoagulant therapy Surgical History History of aortic valve replacement History of cardiac cath Family History Father No problems noted. Mother No problems noted. Social History (Updated 07/01/22 @ 09:19 by MAXIMILIANO Mcgregor) Alcohol intake: current Alcohol intake frequency: a few times a month Alcohol type: beer Patient Tobacco Use Status: Former Tobacco user Quit Date: 2012 Smoked: 23 +/- Physical Exam Vital Signs: Last Vital Signs Pulse 67 12/23/22 12:40 BP 142/80 H 12/23/22 12:40 BMI result Body Mass Index 38.0 GENERAL APPEARANCE: in no acute distress, well developed, well nourished. NECK/THYROID: no carotid bruit, no jugular venous distention. SKIN: warm and dry. HEART: no murmurs, regular rate and rhythm, mechanical 2nd heart sound. LUNGS: Clear to auscultation bilaterally. ABDOMEN: normal, bowel sounds present, soft, nontender, nondistended. EXTREMITIES: 1 to 2+ edema bilaterally right more than left. PERIPHERAL PULSES: equal. NEUROLOGIC: nonfocal, alert and oriented. Assessment & Plan Assessment & Plan (1) CAD (coronary artery disease): Code(s): I25.10 - Atherosclerotic heart disease of [place] coronary artery without angina pectoris (2) History of aortic valve replacement: Comment: Mechanical Code(s): Z95.2 - Presence of prosthetic heart valve (3) Chronic diastolic CHF (congestive heart failure): Code(s): I50.32 - Chronic diastolic (congestive) heart failure (4) Leg edema: Code(s): R60.0 - Localized edema Plan Pleasant 82 gentleman who is here for follow-up. He has coronary artery disease and is status post bypass surgery and also aortic valve replacement with mechanical AVR and has been on chronic Coumadin as well as aspirin. He had nonischemic cardiomyopathy and underwent Bi V AICD with improvement in ejection fraction back to normal. Blood pressure is mildly elevated but overall he has been clinically stable. I have advised him to take same medications. He is asking whether diuretics can be decreased and I have advised him to continue same medications for now. If he developed any change in his breathing or chest discomfort then he will get in touch with us. Thank you for allowing me to participate in the care of your patient. Please feel free to contact me if you have any questions. Coding Level of Care Code Est Pt Level 4 (77922) Diagnoses CAD (coronary artery disease) I25.10 History of aortic valve replacement Z95.2 Chronic diastolic CHF (congestive heart failure) I50.32 Leg edema R60.0
== END 2022-12-23 13:17 | disposition home or self-care (01) ==
PROVIDERS: Visit Provider Internal Medicine Cardiovascular Disease
DX: I25.10 Atherosclerotic heart disease of native coronary artery without angina pectoris (principal); Z95.2 Presence of prosthetic heart valve; I50.32 Chronic diastolic (congestive) heart failure; R60.0 Localized edema
CPT/HCPCS: 99214

== ENCOUNTER → 2022-12-23 12:37 | Outpatient (BNVA) | payer MEDICARE, SELFPAY | PROVIDERS: Visit Provider Internal Medicine Cardiovascular Disease | DX: I25.10 Atherosclerotic heart disease of native coronary artery without angina pectoris (principal); I11.0 Hypertensive heart disease with heart failure; I50.32 Chronic diastolic (congestive) heart failure; R60.0 Localized edema; Z87.891 Personal history of nicotine dependence; Z95.2 Presence of prosthetic heart valve; Z79.82 Long term (current) use of aspirin; Z79.01 Long term (current) use of anticoagulants | CPT/HCPCS: 99212 ==

== ENCOUNTER 2022-12-26 13:56 | Outpatient (AMB) | payer MEDICARE, SELFPAY ==
[2022-12-26 14:06] LABS: Prothrombin Time Whole Bld POC 26.9 sec (11.1-13.5); ~PT, ~INR - Anti Coag Clinic 2.2 (0.9-1.1)
--- NOTE | 2022-12-26 14:07 | MHC.OFFVISCO ---
Intake Intake Visit Reasons: Anticoagulation Allergies Penicillins [PENICILLINS] Allergy (Severe, Verified 12/26/22 14:06) HIVES Medication List - Last Reconciled 12/26/22 by Destinee Pascal RN aspirin (Lo-Dose Aspirin) 81 mg PO DAILY atorvastatin 40 mg PO DAILY docusate sodium 100 mg PO ONCE furosemide 80 mg PO DAILY lisinopril 40 mg PO DAILY metoprolol succinate ER 25 mg PO DAILY multivit,calc,fdi-GP-O9-lycop 240 mcg-30 mcg- 300 mcg (One-A-Day Men's Complete) 1 tab PO DAILY warfarin 5 mg See Protocol PO DAILY Nursing Note INR: 2.2 in therapeutic range Medications and supplements reviewed No changes in health, diet, medications, or supplements, Denies any signs and symptoms of bleeding or bruising or clotting. Bleeding, bruising, clotting discussed Nutritional guidance given Dose: 5MG X 2 DAYS/ 2.5MG X 5 DAYS F/U INR: 2 WEEKS Patient verbalizes understanding of instructions given Anti-Coag Initial Assessment Social Hx Patient Tobacco Use Status: Former Tobacco user Quit Date: 2012 alcohol intake: current Alcohol intake frequency: a few times a month Coding Level of Care Code Est Patient Level 1 Diagnoses Current use of anticoagulant therapy Z79.01 Assessment & Plan Assessment & Plan (1) Current use of anticoagulant therapy: Code(s): Z79.01 - skilled nursing (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
== END 2022-12-26 14:16 | disposition home or self-care (01) ==
LOC: HO.ACS 13:56
PROVIDERS: PCP Internal Medicine; Visit Provider Internal Medicine
DX: Z79.01 Long term (current) use of anticoagulants (principal)

== ENCOUNTER → 2022-12-26 13:56 | Outpatient (BNVA) | payer MEDICARE, SELFPAY | PROVIDERS: PCP Internal Medicine; Visit Provider Internal Medicine | DX: Z95.2 Presence of prosthetic heart valve (principal); Z79.01 Long term (current) use of anticoagulants; Z51.81 Encounter for therapeutic drug level monitoring | CPT/HCPCS: 85610; 99211 ==

== ENCOUNTER 2023-01-09 14:03 | Outpatient (AMB) | payer MEDICARE, SELFPAY ==
--- NOTE | 2023-01-09 14:17 | MHC.OFFVISCO ---
Intake Intake Visit Reasons: Anticoagulation Allergies Penicillins [PENICILLINS] Allergy (Severe, Verified 01/09/23 14:13) HIVES Medication List - Last Reconciled 01/09/23 by Angela Cameron RN aspirin (Lo-Dose Aspirin) 81 mg PO DAILY atorvastatin 40 mg PO DAILY docusate sodium 100 mg PO ONCE furosemide 80 mg PO DAILY lisinopril 40 mg PO DAILY metoprolol succinate ER 25 mg PO DAILY multivit,calc,pev-FM-Q1-lycop 240 mcg-30 mcg- 300 mcg (One-A-Day Men's Complete) 1 tab PO DAILY warfarin 5 mg See Protocol PO DAILY Nursing Note INR: 2.8- in therapeutic range Medications and supplements reviewed- no changes No changes in health, diet, medications, or supplements, Denies any signs and symptoms of bleeding or bruising or clotting. Bleeding, bruising, clotting discussed Nutritional guidance given Dose: 5mg x 2, 2.5mg x 5 F/U INR: 2 weeks Patient verbalizes understanding of instructions given pt states having left cataract surg on 01/14/23- no hold warfarin Anti-Coag Initial Assessment Social Hx Patient Tobacco Use Status: Former Tobacco user Quit Date: 2012 alcohol intake: current Alcohol intake frequency: a few times a month Coding Level of Care Code Est Patient Level 1 Diagnoses Current use of anticoagulant therapy Z79.01 Results AMB INR Fingerstick AMB INR Fingerstick 2.8 Last Edit by Angela Cameron RN on 01/09/23 14:19 Assessment & Plan Assessment & Plan (1) Current use of anticoagulant therapy: Code(s): 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
[2023-01-10 08:44] LABS: Prothrombin Time Whole Bld POC 33.8 sec (11.1-13.5); ~PT, ~INR - Anti Coag Clinic 2.8 (0.9-1.1)
== END 2023-01-09 14:26 | disposition home or self-care (01) ==
LOC: HO.ACS 14:03
PROVIDERS: PCP Internal Medicine; Visit Provider Internal Medicine
DX: Z79.01 Long term (current) use of anticoagulants (principal)

== ENCOUNTER → 2023-01-09 14:03 | Outpatient (BNVA) | payer MEDICARE, SELFPAY | PROVIDERS: PCP Internal Medicine; Visit Provider Internal Medicine | DX: Z95.2 Presence of prosthetic heart valve (principal); Z79.01 Long term (current) use of anticoagulants; Z51.81 Encounter for therapeutic drug level monitoring | CPT/HCPCS: 85610; 99211 ==

== ENCOUNTER → 2023-01-13 23:59 | Outpatient (BNV) | payer MEDICARE, SELFPAY ==
--- NOTE | 2023-01-20 15:19 | MHC.OFFVIS ---
Intake Intake Visit Reasons: Remote HF Monitoring- [facility] Allergies Penicillins [PENICILLINS] Allergy (Severe, Verified 01/09/23 14:13) HIVES [facility] Medical History (Updated 02/22/22 @ 16:16 by TUCKER De La Rosa) Current use of anticoagulant therapy Surgical History History of aortic valve replacement History of cardiac cath Family History Father No problems noted. Mother No problems noted. Social History (Updated 07/01/22 @ 09:19 by MAXIMILIANO Mcgregor) Alcohol intake: current Alcohol intake frequency: a few times a month Alcohol type: beer Patient Tobacco Use Status: Former Tobacco user Quit Date: 2012 Years Smoked: 23 +/- Coding Level of Care Code Procedure Only Diagnoses
== END ==
PROVIDERS: PCP Internal Medicine; Visit Provider Internal Medicine Cardiovascular Disease
DX: I50.32 Chronic diastolic (congestive) heart failure (principal)
CPT/HCPCS: 93297

== ENCOUNTER 2023-01-23 14:02 | Outpatient (AMB) | payer MEDICARE, SELFPAY ==
--- NOTE | 2023-01-23 14:26 | MHC.OFFVISCO ---
Intake Intake Visit Reasons: Anticoagulation Allergies Penicillins [PENICILLINS] Allergy (Severe, Verified 01/23/23 14:40) HIVES Medication List - Last Reconciled 01/23/23 by Angela Cameron RN aspirin (Lo-Dose Aspirin) 81 mg PO DAILY atorvastatin 40 mg PO DAILY docusate sodium 100 mg PO ONCE furosemide 80 mg PO DAILY lisinopril 40 mg PO DAILY metoprolol succinate ER 25 mg PO DAILY multivit,calc,jlm-NH-B7-lycop 240 mcg-30 mcg- 300 mcg (One-A-Day Men's Complete) 1 tab PO DAILY warfarin 5 mg See Protocol PO DAILY Nursing Note INR: 2.3- in therapeutic range Medications and supplements reviewed- no changes No changes in health, diet, medications, or supplements, Denies any signs and symptoms of bleeding or bruising or clotting. Bleeding, bruising, clotting discussed Nutritional guidance given Dose: 5mg x 2, 2.5mg x 5 F/U INR: 2 weeks Patient verbalizes understanding of instructions given Anti-Coag Initial Assessment Social Hx Patient Tobacco Use Status: Former Tobacco user Quit Date: 2012 alcohol intake: current Alcohol intake frequency: a few times a month Coding Level of Care Code Est Patient Level 1 Diagnoses Current use of anticoagulant therapy Z79.01 Results AMB INR Fingerstick AMB INR Fingerstick 2.3 Last Edit by Angela Cameron RN on 01/23/23 14:28 Assessment & Plan Assessment & Plan (1) Current use of anticoagulant therapy: Code(s): 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
[2023-01-24 10:33] LABS: Prothrombin Time Whole Bld POC 27.3 sec (11.1-13.5); ~PT, ~INR - Anti Coag Clinic 2.3 (0.9-1.1)
== END 2023-01-23 14:47 | disposition home or self-care (01) ==
LOC: HO.ACS 14:02
PROVIDERS: PCP Internal Medicine; Visit Provider Internal Medicine
DX: Z79.01 Long term (current) use of anticoagulants (principal)

== ENCOUNTER → 2023-01-23 14:02 | Outpatient (BNVA) | payer MEDICARE, SELFPAY | PROVIDERS: PCP Internal Medicine; Visit Provider Internal Medicine | DX: Z95.2 Presence of prosthetic heart valve (principal); Z79.01 Long term (current) use of anticoagulants; Z51.81 Encounter for therapeutic drug level monitoring | CPT/HCPCS: 85610; 99211 ==

== ENCOUNTER 2023-02-06 13:54 | Outpatient (AMB) | payer MEDICARE, SELFPAY ==
--- NOTE | 2023-02-06 14:02 | MHC.OFFVISCO ---
Intake Intake Visit Reasons: Anticoagulation Allergies Penicillins [PENICILLINS] Allergy (Severe, Verified 02/06/23 13:58) HIVES Medication List - Last Reconciled 02/06/23 by Angela Cameron RN aspirin (Lo-Dose Aspirin) 81 mg PO DAILY atorvastatin 40 mg PO DAILY docusate sodium 100 mg PO ONCE furosemide 80 mg PO DAILY lisinopril 40 mg PO DAILY metoprolol succinate ER 25 mg PO DAILY multivit,calc,shb-WT-C8-lycop 240 mcg-30 mcg- 300 mcg (One-A-Day Men's Complete) 1 tab PO DAILY warfarin 5 mg See Protocol PO DAILY Nursing Note INR: 2.9- in therapeutic range Medications and supplements reviewed- no changes No changes in health, diet, medications, or supplements, Denies any signs and symptoms of bleeding or bruising or clotting. Bleeding, bruising, clotting discussed Nutritional guidance given Dose: 5mg x 2, 2.5mg x 5 F/U INR: 2 weeks Patient verbalizes understanding of instructions given Anti-Coag Initial Assessment Social Hx Patient Tobacco Use Status: Former Tobacco user Quit Date: 2012 alcohol intake: current Alcohol intake frequency: a few times a month Coding Level of Care Code Est Patient Level 1 Diagnoses Current use of anticoagulant therapy Z79.01 Assessment & Plan Assessment & Plan (1) Current use of anticoagulant therapy: Code(s): Z79.01 - longterm (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
[2023-02-06 14:03] LABS: Prothrombin Time Whole Bld POC 34.9 sec (11.1-13.5); ~PT, ~INR - Anti Coag Clinic 2.9 (0.9-1.1)
== END 2023-02-06 14:10 | disposition home or self-care (01) ==
LOC: HO.ACS 13:54
PROVIDERS: PCP Internal Medicine; Visit Provider Internal Medicine
DX: Z79.01 Long term (current) use of anticoagulants (principal)

== ENCOUNTER → 2023-02-06 13:54 | Outpatient (BNVA) | payer MEDICARE, SELFPAY | PROVIDERS: PCP Internal Medicine; Visit Provider Internal Medicine | DX: Z95.2 Presence of prosthetic heart valve (principal); Z51.81 Encounter for therapeutic drug level monitoring; Z79.01 Long term (current) use of anticoagulants | CPT/HCPCS: 85610; 99211 ==

== ENCOUNTER 2023-02-20 14:01 | Outpatient (AMB) | payer MEDICARE, SELFPAY ==
[2023-02-20 14:09] LABS: Prothrombin Time Whole Bld POC 36.5 sec (11.1-13.5)
--- NOTE | 2023-02-20 14:13 | MHC.OFFVISCO ---
Intake Intake Visit Reasons: Anticoagulation Allergies Penicillins [PENICILLINS] Allergy (Severe, Verified 02/20/23 14:03) HIVES Medication List - Last Reconciled 02/20/23 by Janet Scruggs RN aspirin (Lo-Dose Aspirin) 81 mg PO DAILY atorvastatin 40 mg PO DAILY docusate sodium 100 mg PO ONCE furosemide 80 mg PO DAILY lisinopril 40 mg PO DAILY metoprolol succinate ER 25 mg PO DAILY multivit,calc,rvx-SS-Q0-lycop 240 mcg-30 mcg- 300 mcg (One-A-Day Men's Complete) 1 tab PO DAILY warfarin 5 mg See Protocol PO DAILY Nursing Note Amb to [facility] feeling well s/p cataract right on 02/12/23 Medications and supplements reviewed No changes in health, diet, medications, or supplements Denies any unusual signs and symptoms of bruising, bleeding Denies any new Chest pain, SOB, or clotting INR: 3.0 in therapeutic range Nutritional guidance given:ok for a green today then balance greens and reds in diet Dose: continue usual dosing; 5mg x 2 days and 2.5mg x 5 days F/U INR: 2 weeks Patient verbalizes understanding of instructions given with accurate read back/ teach back of dosing Anti-Coag Initial Assessment Social Hx Patient Tobacco Use Status: Former Tobacco user Quit Date: 2012 alcohol intake: current Alcohol intake frequency: a few times a month Coding Level of Care Code Est Patient Level 1 Diagnoses Current use of anticoagulant therapy Z79.01 Time Spent (min) 15 Assessment & Plan Assessment & Plan (1) Current use of anticoagulant therapy: Code(s): Z79.01 - [facility] (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
== END 2023-02-20 16:05 | disposition home or self-care (01) ==
LOC: HO.ACS 14:01
PROVIDERS: PCP Internal Medicine; Visit Provider Internal Medicine
DX: Z79.01 Long term (current) use of anticoagulants (principal)

== ENCOUNTER → 2023-02-20 14:01 | Outpatient (BNVA) | payer MEDICARE, SELFPAY | PROVIDERS: PCP Internal Medicine; Visit Provider Internal Medicine | DX: Z95.2 Presence of prosthetic heart valve (principal); Z79.01 Long term (current) use of anticoagulants; Z51.81 Encounter for therapeutic drug level monitoring | CPT/HCPCS: 85610; 99211 ==

== ENCOUNTER → 2023-02-24 23:59 | Outpatient (BNV) | payer MEDICARE, SELFPAY ==
--- NOTE | 2023-03-12 21:14 | MHC.OFFVIS ---
Intake Intake Visit Reasons: Remote ICD Check- [facility] Allergies Penicillins [PENICILLINS] Allergy (Severe, Verified 03/11/23 14:04) HIVES [facility] Medical History (Updated 02/22/22 @ 16:16 by TUCKER De La Rosa) Current use of anticoagulant therapy Surgical History History of aortic valve replacement History of cardiac cath Family History Father No problems noted. Mother No problems noted. 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 [id number] Cardiac Device Interrogation, pacemaker or defibrillator Procedure code (CPT) selection complete Assessment & Plan Assessment & Plan (1) ICD (implantable cardioverter-defibrillator) in place: Code(s): Z95.810 - Presence of automatic (implantable) cardiac defibrillator Coding Level of Care Code Procedure Only Diagnoses ICD (implantable cardioverter-defibrillator) in place Z95.810 CPT Codes Cardiac Device Check - Cardiac Device 14: [id number] Cardiac Device Interrogation, pacemaker or defibrillator ([id number])
== END ==
PROVIDERS: PCP Internal Medicine; Visit Provider Internal Medicine Cardiovascular Disease
DX: I50.32 Chronic diastolic (congestive) heart failure (principal); Z95.810 Presence of automatic (implantable) cardiac defibrillator
CPT/HCPCS: 93295

== ENCOUNTER 2023-03-06 13:59 | Outpatient (AMB) | payer MEDICARE, SELFPAY ==
[2023-03-06 14:09] LABS: Prothrombin Time Whole Bld POC 53.5 sec (11.1-13.5); ~PT, ~INR - Anti Coag Clinic 4.5 (0.9-1.1)
--- NOTE | 2023-03-06 14:20 | MHC.OFFVISCO ---
Intake Intake Visit Reasons: Anticoagulation Allergies Penicillins [PENICILLINS] Allergy (Severe, Verified 03/06/23 14:04) HIVES Medication List - Last Reconciled 03/06/23 by Janet Scruggs, RN aspirin (Lo-Dose Aspirin) 81 mg PO DAILY atorvastatin 40 mg PO DAILY docusate sodium 100 mg PO ONCE furosemide 80 mg PO DAILY lisinopril 40 mg PO DAILY metoprolol succinate ER 25 mg PO DAILY multivit,calc,eyk-HN-N7-lycop 240 mcg-30 mcg- 300 mcg (One-A-Day Men's Complete) 1 tab PO DAILY warfarin 5 mg See Protocol PO DAILY Nursing Note Amb to [facility] feeling well Medications and supplements reviewed No changes in health, diet, medications, or supplements Denies any unusual signs and symptoms of bruising, bleeding Denies any new Chest pain, SOB, or clotting INR: 4.5 above therapeutic range, pt sts not sure why ?ETOH on weekend Nutritional guidance given: dark leafy greens today and tomorrow then balance greens and reds in diet Dose: already took dose today to hold tomorr and Friday then resume usual dosing; 5mg x 2 days and 2.5mg x 5 days F/U INR: Sunday 03/11 Patient verbalizes understanding of instructions given with accurate read back/ teach back of dosing Anti-Coag Initial Assessment Social Hx Patient Tobacco Use Status: Former Tobacco user Quit Date: 2012 alcohol intake: current Alcohol intake frequency: a few times a month Coding Level of Care Code Est Patient Level 1 Diagnoses Current use of anticoagulant therapy Z79.01 Time Spent (min) 15 Assessment & Plan Assessment & Plan (1) Current use of anticoagulant therapy: Code(s): Z79.01 - skilled nursing (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
== END 2023-03-06 15:03 | disposition home or self-care (01) ==
LOC: HO.ACS 13:59
PROVIDERS: PCP Internal Medicine; Visit Provider Internal Medicine
DX: Z79.01 Long term (current) use of anticoagulants (principal)

== ENCOUNTER → 2023-03-06 13:59 | Outpatient (BNVA) | payer MEDICARE, SELFPAY | PROVIDERS: PCP Internal Medicine; Visit Provider Internal Medicine | DX: Z95.2 Presence of prosthetic heart valve (principal); Z79.01 Long term (current) use of anticoagulants; Z51.81 Encounter for therapeutic drug level monitoring | CPT/HCPCS: 85610; 99211; J1100 ==

== ENCOUNTER → 2023-03-10 23:59 | Outpatient (BNV) | payer MEDICARE, SELFPAY ==
--- NOTE | 2023-03-12 21:47 | MHC.OFFVIS ---
Intake Intake Visit Reasons: [place] HF monitoring- [facility] Allergies Penicillins [PENICILLINS] Allergy (Severe, Verified 03/11/23 14:04) HIVES [facility] Medical History (Updated 02/22/22 @ 16:16 by JAYLYN De La RosaC) Current use of anticoagulant therapy Surgical History History of aortic valve replacement History of cardiac cath Family History Father No problems noted. Mother No problems noted. Social History (Updated 07/01/22 @ 09:19 by MAXIMILIANO Mcgregor) Alcohol intake: current Alcohol intake frequency: a few times a month Alcohol type: beer Patient Tobacco Use Status: Former Tobacco user Quit Date: 2012 Smoked: 23 +/- Office Procedures Cardiac Device Check Cardiac Device Check Details: HF monitoring Stable thoracic impedance. [id number] Cardiac Device Interrogation, cardio physiologic monitor Procedure code (CPT) selection complete Assessment & Plan Assessment & Plan (1) Chronic diastolic CHF (congestive heart failure): Code(s): I50.32 - Chronic diastolic (congestive) heart failure Orders: Orders AMB Cardiac Device Follow-up 03/10/23 I50.32 - Chronic diastolic (congestive) heart failure Coding Level of Care Code Procedure Only Diagnoses Chronic diastolic CHF (congestive heart failure) I50.32 CPT Codes Cardiac Device Check - Cardiac Device 15: [id number] Cardiac Device Interrogation, cardio physiologic monitor ([id number])
== END ==
PROVIDERS: PCP Internal Medicine; Visit Provider Internal Medicine Cardiovascular Disease
DX: I50.32 Chronic diastolic (congestive) heart failure (principal)
CPT/HCPCS: 93297

== ENCOUNTER 2023-03-11 14:03 | Outpatient (AMB) | payer MEDICARE, SELFPAY ==
[2023-03-11 14:10] LABS: Prothrombin Time Whole Bld POC 17.7 sec (11.1-13.5); ~PT, ~INR - Anti Coag Clinic 1.5 (0.9-1.1)
--- NOTE | 2023-03-11 14:12 | MHC.OFFVISCO ---
Intake Intake Visit Reasons: Anticoagulation Allergies Penicillins [PENICILLINS] Allergy (Severe, Verified 03/11/23 14:04) HIVES Medication List - Last Reconciled 03/11/23 by Janet Scruggs, RN aspirin (Lo-Dose Aspirin) 81 mg PO DAILY atorvastatin 40 mg PO DAILY docusate sodium 100 mg PO ONCE furosemide 80 mg PO DAILY lisinopril 40 mg PO DAILY metoprolol succinate ER 25 mg PO DAILY multivit,calc,uja-II-P2-lycop 240 mcg-30 mcg- 300 mcg (One-A-Day Men's Complete) 1 tab PO DAILY warfarin 5 mg See Protocol PO DAILY Nursing Note Amb to [facility] feeling ok, pt sts he is not happy coming in so quickly after last visit,explained to pt concern with dosing changes and want to make sure his INR and health will be ok Medications and supplements reviewed, sts he held warfarin as instructed and ate greens everyday (was instructed greens x1 day) No changes in health, diet, medications, or supplements Denies any unusual signs and symptoms of bruising, bleeding Denies any new Chest pain, SOB, or clotting INR: 1.5 below therapeutic range Nutritional guidance given: no greens x 3 days then balance greens and reds in diet Dose: already took warfarin today, will increase dose tomorrow to 5mg then resume usual dosing (5mg x 2 days and 2.5mg x 5 days) F/U INR:recommended 1 week, pt sts he will be in 2 weeks, able to book 03/20 Patient verbalizes understanding of instructions given with accurate read back/ teach back of dosing TC to Dr You office, spoke to [place] parking regulation enforcement officer, and reported critical INR 1.5, H/O 4.5 INR last week 2 day hold (total 5mg) but pt ate greens every day, dosing plan for low INR and follow up recommended vs actual booked as pt expresses desire to only come in every 2 weeks Anti-Coag Initial Assessment Social Hx Patient Tobacco Use Status: Former Tobacco user Quit Date: 2012 alcohol intake: current Alcohol intake frequency: a few times a month Coding Level of Care Code Est Patient Level 1 Diagnoses Current use of anticoagulant therapy Z79.01 Time Spent (min) 20 Assessment & Plan Assessment & Plan (1) Current use of anticoagulant therapy: 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
== END 2023-03-11 14:51 | disposition home or self-care (01) ==
LOC: HO.ACS 14:03
PROVIDERS: PCP Internal Medicine; Visit Provider Internal Medicine
DX: Z79.01 Long term (current) use of anticoagulants (principal)

== ENCOUNTER → 2023-03-11 14:03 | Outpatient (BNVA) | payer MEDICARE, SELFPAY | PROVIDERS: PCP Internal Medicine; Visit Provider Internal Medicine | DX: Z95.2 Presence of prosthetic heart valve (principal); Z79.01 Long term (current) use of anticoagulants; Z51.81 Encounter for therapeutic drug level monitoring | CPT/HCPCS: 85610; 99211 ==

== ENCOUNTER 2023-03-20 13:58 | Outpatient (AMB) | payer MEDICARE, SELFPAY ==
--- NOTE | 2023-03-20 14:04 | MHC.OFFVISCO ---
Intake Intake Visit Reasons: Anticoagulation Allergies Penicillins [PENICILLINS] Allergy (Severe, Verified 03/20/23 14:01) HIVES Medication List - Last Reconciled 03/20/23 by Destinee Pascal RN aspirin (Lo-Dose Aspirin) 81 mg PO DAILY atorvastatin 40 mg PO DAILY docusate sodium 100 mg PO ONCE furosemide 80 mg PO DAILY lisinopril 40 mg PO DAILY metoprolol succinate ER 25 mg PO DAILY multivit,calc,yvr-BA-U2-lycop 240 mcg-30 mcg- 300 mcg (One-A-Day Men's Complete) 1 tab PO DAILY warfarin 5 mg See Protocol PO DAILY Nursing Note pt visit delayed due to poor interfacing with expanse 10 minutes- 2 meeters stuck in communication modes INR: 3.6 in therapeutic range Medications and supplements reviewed No changes in health, diet, medications, or supplements, Denies any signs and symptoms of bleeding or bruising or clotting. Bleeding, bruising, clotting discussed Nutritional guidance given- eat greens today AND WEEKLY BALANCE OUT YOUR DIET BETTER Dose: 5mg x 2 days/ 2.5mg x 5 days F/U INR: 2 weeks Patient verbalizes understanding of instructions given Anti-Coag Initial Assessment Social Hx Patient Tobacco Use Status: Former Tobacco user Quit Date: 2012 alcohol intake: current Alcohol intake frequency: a few times a month Coding Level of Care Code Est Patient Level 1 Diagnoses Current use of anticoagulant therapy Z79.01 Results AMB INR Fingerstick AMB INR Fingerstick 3.6 Last Edit by Destinee Pascal RN on 03/20/23 14:13 manual entry poor interfacing continues Assessment & Plan Assessment & Plan (1) Current use of anticoagulant therapy: Code(s): Z79.01 - penitentiary (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
== END 2023-03-20 14:22 | disposition home or self-care (01) ==
LOC: HO.ACS 13:59
PROVIDERS: PCP Internal Medicine; Visit Provider Internal Medicine
DX: Z79.01 Long term (current) use of anticoagulants (principal)

== ENCOUNTER → 2023-03-20 13:58 | Outpatient (BNVA) | payer MEDICARE, SELFPAY | PROVIDERS: PCP Internal Medicine; Visit Provider Internal Medicine | DX: Z95.2 Presence of prosthetic heart valve (principal); Z79.01 Long term (current) use of anticoagulants; Z51.81 Encounter for therapeutic drug level monitoring | CPT/HCPCS: 85610; 99211 ==

== ENCOUNTER 2023-04-03 08:04 | Outpatient (AMB) | payer MEDICARE, SELFPAY ==
[2023-04-03 08:31] LABS: Prothrombin Time Whole Bld POC 37.2 sec (11.1-13.5); ~PT, ~INR - Anti Coag Clinic 3.1 (0.9-1.1)
--- NOTE | 2023-04-03 08:34 | MHC.OFFVISCO ---
Intake Intake Visit Reasons: Anticoagulation Allergies Penicillins [PENICILLINS] Allergy (Severe, Verified 04/03/23 08:26) HIVES Medication List - Last Reconciled 04/03/23 by Destinee Pascal RN aspirin (Lo-Dose Aspirin) 81 mg PO DAILY atorvastatin 40 mg PO DAILY docusate sodium 100 mg PO ONCE furosemide 80 mg PO DAILY lisinopril 40 mg PO DAILY metoprolol succinate ER 25 mg PO DAILY multivit,calc,kou-CU-Z7-lycop 240 mcg-30 mcg- 300 mcg (One-A-Day Men's Complete) 1 tab PO DAILY warfarin 5 mg See Protocol PO DAILY Nursing Note INR: 3.1 in therapeutic range Medications and supplements reviewed No changes in health, diet, medications, or supplements, Denies any signs and symptoms of bleeding or bruising or clotting. 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
== END 2023-04-03 08:35 | disposition home or self-care (01) ==
LOC: HO.ACS 08:04
PROVIDERS: PCP Internal Medicine; Visit Provider Internal Medicine
DX: Z79.01 Long term (current) use of anticoagulants (principal)

== ENCOUNTER → 2023-04-03 08:04 | Outpatient (BNVA) | payer MEDICARE, SELFPAY | PROVIDERS: PCP Internal Medicine; Visit Provider Internal Medicine | DX: Z95.2 Presence of prosthetic heart valve (principal); Z79.01 Long term (current) use of anticoagulants; Z51.81 Encounter for therapeutic drug level monitoring | CPT/HCPCS: 85610; 99211 ==

== ENCOUNTER 2023-04-17 08:21 | Outpatient (AMB) | payer MEDICARE, SELFPAY ==
[2023-04-17 08:27] LABS: Prothrombin Time Whole Bld POC 38.1 sec (11.1-13.5); ~PT, ~INR - Anti Coag Clinic 3.2 (0.9-1.1)
--- NOTE | 2023-04-17 08:34 | MHC.OFFVISCO ---
Intake Intake Visit Reasons: Anticoagulation Allergies Penicillins [PENICILLINS] Allergy (Severe, Verified 04/17/23 08:21) HIVES Medication List - Last Reconciled 04/17/23 by Destinee Pascal RN aspirin (Lo-Dose Aspirin) 81 mg PO DAILY atorvastatin 40 mg PO DAILY docusate sodium 100 mg PO ONCE furosemide 80 mg PO DAILY lisinopril 40 mg PO DAILY metoprolol succinate ER 25 mg PO DAILY multivit,calc,csm-DA-V7-lycop 240 mcg-30 mcg- 300 mcg (One-A-Day Men's Complete) 1 tab PO DAILY warfarin 5 mg See Protocol PO DAILY Nursing Note INR: 3.2 ALMOST in therapeutic range( HAS A VALVE) Medications and supplements reviewed No changes in health, diet, medications, or supplements, Denies any signs and symptoms of bleeding or bruising or clotting. Bleeding, bruising, clotting discussed Nutritional guidance given - KEEP UP WEEKLY GREENS Dose: KEEP SAME DOSE 5MG X 2 DAYS 2.5MG X 5 DAYS F/U INR: 2 WEEKS Patient verbalizes understanding of instructions given Anti-Coag Initial Assessment Social Hx Patient Tobacco Use Status: Former Tobacco user Quit Date: 2012 alcohol intake: current Alcohol intake frequency: a few times a month Coding Level of Care Code Est Patient Level 1 Diagnoses Current use of anticoagulant therapy Z79.01 Results AMB INR Fingerstick AMB INR Fingerstick 3.2 Last Edit by Destinee Pascal RN on 04/17/23 08:30 MANUAL ENTRY Assessment & Plan Assessment & Plan (1) Current use of anticoagulant therapy: 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
== END 2023-04-17 08:36 | disposition home or self-care (01) ==
LOC: HO.ACS 08:21
PROVIDERS: PCP Internal Medicine; Visit Provider Internal Medicine
DX: Z79.01 Long term (current) use of anticoagulants (principal)

== ENCOUNTER → 2023-04-17 08:21 | Outpatient (BNVA) | payer MEDICARE, SELFPAY | PROVIDERS: PCP Internal Medicine; Visit Provider Internal Medicine | DX: Z95.2 Presence of prosthetic heart valve (principal); Z79.01 Long term (current) use of anticoagulants; Z51.81 Encounter for therapeutic drug level monitoring | CPT/HCPCS: 85610; 99211 ==

== ENCOUNTER → 2023-04-21 23:59 | Outpatient (BNV) | payer MEDICARE, SELFPAY ==
--- NOTE | 2023-05-12 21:38 | MHC.OFFVIS ---
Intake Intake Visit Reasons: Remote HF Monitoring- [facility] Allergies Penicillins [PENICILLINS] Allergy (Severe, Verified 05/01/23 08:21) HIVES [facility] Medical History (Updated 04/28/23 @ 11:42 by Timothy Jade MD) Current use of anticoagulant therapy Surgical History History of cardiac cath History of aortic valve replacement Family History Father No problems noted. Mother No problems noted. Alcohol intake: current Alcohol intake frequency: a few times a month Alcohol type: beer Patient Tobacco Use Status: Former Tobacco user Quit Date: 2012 Smoked: 23 +/- Office Procedures Cardiac Device Check Cardiac Device Check Details: HF monitoring. Stable thoracic impedance. [id number] Cardiac Device Interrogation, cardio physiologic monitor Procedure code (CPT) selection complete Assessment & Plan Assessment & Plan (1) ICD (implantable cardioverter-defibrillator) in place: Code(s): Z95.810 - Presence of automatic (implantable) cardiac defibrillator Coding Level of Care Code Procedure Only Diagnoses ICD (implantable cardioverter-defibrillator) in place Z95.810 CPT Codes Cardiac Device Check - Cardiac Device 15: [id number] Cardiac Device Interrogation, cardio physiologic monitor ([id number])
== END ==
PROVIDERS: PCP Internal Medicine; Visit Provider Internal Medicine Cardiovascular Disease
DX: I50.32 Chronic diastolic (congestive) heart failure (principal); Z95.810 Presence of automatic (implantable) cardiac defibrillator
CPT/HCPCS: 93297

== ENCOUNTER 2023-04-28 11:19 | Outpatient (AMB) | payer MEDICARE, SELFPAY ==
[2023-04-28 11:23] VITALS: BP 140/72; PULSE 60; BMI 37.6
--- NOTE | 2023-04-28 11:23 | MHC.OFFVIS ---
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 Officer Chief Required: No Accompanied by: Self / Same As Patient Allergies Penicillins [PENICILLINS] Allergy (Severe, Verified 04/28/23 11:25) HIVES Medication List - Last Reconciled 04/28/23 by Timothy Jade MD aspirin (Lo-Dose Aspirin) 81 mg PO DAILY atorvastatin 40 mg PO DAILY docusate sodium 100 mg PO ONCE furosemide 80 mg PO DAILY lisinopril 40 mg PO DAILY metoprolol succinate ER 50 mg PO DAILY multivit,calc,lsm-AI-Q5-lycop 240 mcg-30 mcg- 300 mcg (One-A-Day Men's Complete) 1 tab PO DAILY warfarin 5 mg See Protocol PO DAILY HPI HPI Comments History of Present Illness Details Pleasant 83-year-old gentleman here for follow-up. He has known history of previous bypass surgery and mechanical aortic valve replacement. He was seen for new onset heart failure and was found to have cardiomyopathy with severely reduced ejection fraction. 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 He was sent for a Bi V AICD placement which happened in February 2019 at [facility] by Dr. Cruz. His repeat echocardiogram in May 2019 showing ejection fraction of 50-55%. It also showed some moderate aortic stenosis and concern for patient prosthesis mismatch. He has chronic right lower extremity edema due to a blood clot in the past. He has been doing well since then. He has no chest discomfort shortness of breath. Clinically not in heart failure. Taking medications regularly. Stable on follow-up. 07/01/22: On follow-up he is doing well. He is sayng he wakes up in the middle night and cannot go back to sleep for few hours. He is saying he does not wake up for shortness of breath or PND. Overall clinically stable. 12/23/22: He returns for follow-up. He has been taking medications regularly. His denying any chest discomfort or significant shortness of breath. No significant orthopnea or PND. He has peripheral edema which is chronic. The right leg is worse than the left due to previous DVT. 04/28/23: He is here for f/u. BP is elevated. He has been doing well. No dyspnea or CP. [facility] Medical History (Updated 04/28/23 @ 11:42 by Timothy Jade MD) Current use of anticoagulant therapy Surgical History History of cardiac cath History of aortic valve replacement Family History Father No problems noted. Mother No problems noted. Social History Alcohol intake: current Alcohol intake frequency: a few times a month Alcohol type: beer Patient Tobacco Use Status: Former Tobacco user Quit Date: 2012 Smoked: 23 +/- Review of Systems Const Denies weakness ENT Denies dizziness Card Denies chest pain, Denies chest pain with activity, Denies syncope, Denies rapid heart rate, Denies pedal edema, Denies edema, Denies leg edema, Denies lightheadedness, Denies palpitations, Denies dyspnea, Denies dyspnea on exertion and Denies orthopnea Resp Denies cough, Denies dyspnea and Denies dyspnea on exertion GI Denies hematochezia and Denies change in stool character Musc Denies abnormal gait, Denies muscle cramps, Denies muscle weakness, Denies numbness, Denies radiating pain into limb and Denies tingling Neuro Denies abnormal gait, Denies dizziness, Denies syncope, Denies numbness, Denies tingling and Denies weakness Endo Denies palpitations Physical Exam Vital Signs: Last Vital Signs Pulse 60 04/28/23 11:23 BP 140/72 H 04/28/23 11:23 BMI result Body Mass Index 37.6 GENERAL APPEARANCE: in no acute distress, well developed, well nourished. NECK/THYROID: no carotid bruit, no jugular venous distention. SKIN: warm and dry. HEART: no murmurs, regular rate and rhythm, mechanical 2nd heart sound. LUNGS: Clear to auscultation bilaterally. ABDOMEN: normal, bowel sounds present, soft, nontender, nondistended. EXTREMITIES: 1 to 2+ edema bilaterally right more than left. PERIPHERAL PULSES: equal. NEUROLOGIC: nonfocal, alert and oriented. Assessment & Plan Assessment & Plan (1) Essential hypertension: Code(s): I10 - Essential (primary) hypertension (2) CAD (coronary artery disease): Code(s): I25.10 - Atherosclerotic heart disease of [place] coronary artery without angina pectoris (3) S/P AVR: Code(s): Z95.2 - Presence of prosthetic heart valve Plan 83 male with NICM s/p Biv AICD and improvement in the EF. Clinically stable. Continue same dose of Lasix. BP elevated- increasing the Metoprolol XL to 50 mg daily. f/u in few months. Coding Level of Care Code Est Pt Level 4 (29925) Diagnoses Essential hypertension I10 CAD (coronary artery disease) I25.10 S/P AVR Z95.2
== END 2023-04-28 11:44 | disposition home or self-care (01) ==
PROVIDERS: PCP Internal Medicine; Visit Provider Internal Medicine Cardiovascular Disease
DX: I10 Essential (primary) hypertension (principal); I25.10 Atherosclerotic heart disease of native coronary artery without angina pectoris; Z95.2 Presence of prosthetic heart valve
CPT/HCPCS: 99214

== ENCOUNTER → 2023-04-28 11:19 | Outpatient (BNVA) | payer MEDICARE, SELFPAY | PROVIDERS: PCP Internal Medicine; Visit Provider Internal Medicine Cardiovascular Disease | DX: I25.10 Atherosclerotic heart disease of native coronary artery without angina pectoris (principal); I10 Essential (primary) hypertension; Z95.2 Presence of prosthetic heart valve | CPT/HCPCS: 99212 ==

== ENCOUNTER 2023-05-01 08:19 | Outpatient (AMB) | payer MEDICARE, SELFPAY ==
--- NOTE | 2023-05-01 08:25 | MHC.OFFVISCO ---
Intake Intake Visit Reasons: Anticoagulation Allergies Penicillins [PENICILLINS] Allergy (Severe, Verified 05/01/23 08:21) HIVES Medication List - Last Reconciled 05/01/23 by Angela Cameron RN aspirin (Lo-Dose Aspirin) 81 mg PO DAILY atorvastatin 40 mg PO DAILY furosemide 80 mg PO DAILY lisinopril 40 mg PO DAILY metoprolol succinate ER 50 mg PO DAILY multivit,calc,rsc-SK-I4-lycop 240 mcg-30 mcg- 300 mcg (One-A-Day Men's Complete) 1 tab PO DAILY warfarin 5 mg See Protocol PO DAILY Nursing Note INR 3.3-?? out of therapeutic range Medications and supplements reviewed Patient status: no c.o, cont with cardiac rehab Medications or supplements: metoprolol succ increased to 50mg daily Diet: same Denies any signs and symptoms of bleeding or clotting or unusual bruising Bleeding, bruising, clotting discussed Nutritional guidance given: eat greens to lower inr, no reds for 2 days Dose: already took warfarin today, reduce weekly dosing due to elev inr's 2.5mg x 6, 5mg x 1 F/U INR Date : 2 weeks?? Patient verbalizing understanding of instructions given. Anti-Coag Initial Assessment Social Hx Patient Tobacco Use Status: Former Tobacco user Quit Date: 2012 alcohol intake: current Alcohol intake frequency: a few times a month Coding Level of Care Code Est Patient Level 1 Diagnoses Current use of anticoagulant therapy Z79.01 Results AMB INR Fingerstick AMB INR Fingerstick 3.3 Last Edit by Angela Cameron RN on 05/01/23 08:28 Assessment & Plan Assessment & Plan (1) Current use of anticoagulant therapy: Code(s): Z79.01 - [facility] (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
[2023-05-01 13:34] LABS: Prothrombin Time Whole Bld POC 40.2 sec (11.1-13.5); ~PT, ~INR - Anti Coag Clinic 3.3 (0.9-1.1)
== END 2023-05-01 08:35 | disposition home or self-care (01) ==
LOC: HO.ACS 08:19
PROVIDERS: PCP Internal Medicine; Visit Provider Internal Medicine
DX: Z79.01 Long term (current) use of anticoagulants (principal)

== ENCOUNTER → 2023-05-01 08:19 | Outpatient (BNVA) | payer MEDICARE, SELFPAY | PROVIDERS: PCP Internal Medicine; Visit Provider Internal Medicine | DX: Z95.2 Presence of prosthetic heart valve (principal); Z79.01 Long term (current) use of anticoagulants; Z51.81 Encounter for therapeutic drug level monitoring | CPT/HCPCS: 85610; 99211 ==

== ENCOUNTER 2023-05-15 08:37 | Outpatient (AMB) | payer MEDICARE, SELFPAY ==
--- NOTE | 2023-05-15 08:43 | MHC.OFFVISCO ---
Intake Intake Visit Reasons: Anticoagulation Allergies Penicillins [PENICILLINS] Allergy (Severe, Verified 05/15/23 08:38) HIVES Medication List - Last Reconciled 05/15/23 by Destinee Pascal RN aspirin (Lo-Dose Aspirin) 81 mg PO DAILY atorvastatin 40 mg PO DAILY furosemide 80 mg PO DAILY lisinopril 40 mg PO DAILY metoprolol succinate ER 50 mg PO DAILY multivit,calc,wdh-KK-A8-lycop 240 mcg-30 mcg- 300 mcg (One-A-Day Men's Complete) 1 tab PO DAILY warfarin 5 mg See Protocol PO DAILY Nursing Note INR: 2.5 in therapeutic range Medications and supplements reviewed No changes in health, diet, medications, or supplements, Denies any signs and symptoms of bleeding or bruising or clotting. Bleeding, bruising, clotting discussed Nutritional guidance given Dose: 5MG X 1 DAY/ 2.5MG X 6 DAYS F/U INR: 2 WEEKS Patient verbalizes understanding of instructions given Anti-Coag Initial Assessment Social Hx Patient Tobacco Use Status: Former Tobacco user Quit Date: 2012 alcohol intake: current Alcohol intake frequency: a few times a month Coding Level of Care Code Est Patient Level 1 Diagnoses Current use of anticoagulant therapy Z79.01 Assessment & Plan Assessment & Plan (1) Current use of anticoagulant therapy: Code(s): Z79.01 - snf (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
[2023-05-15 08:44] LABS: Prothrombin Time Whole Bld POC 30.3 sec (11.1-13.5); ~PT, ~INR - Anti Coag Clinic 2.5 (0.9-1.1)
== END 2023-05-15 08:51 | disposition home or self-care (01) ==
LOC: HO.ACS 08:37
PROVIDERS: PCP Internal Medicine; Visit Provider Internal Medicine
DX: Z79.01 Long term (current) use of anticoagulants (principal)

== ENCOUNTER → 2023-05-15 08:37 | Outpatient (BNVA) | payer MEDICARE, SELFPAY | PROVIDERS: PCP Internal Medicine; Visit Provider Internal Medicine | DX: Z95.2 Presence of prosthetic heart valve (principal); Z79.01 Long term (current) use of anticoagulants; Z51.81 Encounter for therapeutic drug level monitoring | CPT/HCPCS: 85610; 99211 ==

== ENCOUNTER 2023-05-26 11:17 | Outpatient (REF) | payer MEDICARE, SELFPAY ==
--- NOTE | ~2023-05-26 | XR_ITS ---
EXAMINATION: XR PELVIS AND SACRUM CLINICAL INFORMATION: Pain. COMPARISON: CT left hip and femur 07/08/2013. TECHNIQUE: Single view pelvis with 3 views sacrum and coccyx. FINDINGS: Mild degenerative changes are seen at the SI joints with some sclerosis. Degenerative change is seen at the pubic symphysis. There is disc space narrowing seen at L5-S1 with vacuum phenomena. The sacrum and coccyx appear unremarkable without bony destructive lesions. There is mild dorsal displacement of distal coccygeal elements compared to the remainder of the coccyx which appears unchanged when compared to the 07/08/2013 CT scan. XR/XR sacrum coccyx min 2V IMPRESSION: Mild degenerative changes as described above. No acute finding.
--- NOTE | ~2023-05-26 | XR_ITS ---
EXAMINATION: XR PELVIS AND SACRUM CLINICAL INFORMATION: Pain. COMPARISON: CT left hip and femur 07/08/2013. TECHNIQUE: Single view pelvis with 3 views sacrum and coccyx. FINDINGS: Mild degenerative changes are seen at the SI joints with some sclerosis. Degenerative change is seen at the pubic symphysis. There is disc space narrowing seen at L5-S1 with vacuum phenomena. The sacrum and coccyx appear unremarkable without bony destructive lesions. There is mild dorsal displacement of distal coccygeal elements compared to the remainder of the coccyx which appears unchanged when compared to the 07/08/2013 CT scan. XR/XR pelvis 1-2V IMPRESSION: Mild degenerative changes as described above. No acute finding.
== END 2023-05-26 11:18 | disposition home or self-care (01) ==
LOC: HO.XRAY 11:17
PROVIDERS: PCP Internal Medicine; Visit Provider Internal Medicine
DX: M53.3 Sacrococcygeal disorders, not elsewhere classified (principal)
CPT/HCPCS: 72170; 72220

== ENCOUNTER → 2023-05-26 23:59 | Outpatient (BNV) | payer MEDICARE, SELFPAY ==
--- NOTE | 2023-05-26 17:27 | MHC.OFFVIS ---
Intake Intake Visit Reasons: Remote ICD Check- [facility] Allergies Penicillins [PENICILLINS] Allergy (Severe, Verified 05/15/23 08:38) HIVES [facility] Medical History (Updated 04/28/23 @ 11:42 by Timothy Jade MD) Current use of anticoagulant therapy Surgical History History of cardiac cath History of aortic valve replacement Family History Father No problems noted. Mother No problems noted. Social History Alcohol intake: current Alcohol intake frequency: a few times a month Alcohol type: beer Patient Tobacco Use Status: Former Tobacco user Quit Date: 2012 Smoked: 23 +/- Office Procedures Cardiac Device Check Cardiac Device Check Details: Biv AICD Battery life 3 years. BP 98%. No new alerts. [id number] Cardiac Device Interrogation, pacemaker or defibrillator Procedure code (CPT) selection complete Assessment & Plan Assessment & Plan (1) ICD (implantable cardioverter-defibrillator) in place: Code(s): Z95.810 - Presence of automatic (implantable) cardiac defibrillator Plan: As above Orders: Orders AMB Cardiac Device Follow-up Today Z95.810 - Presence of automatic (implantable) cardiac defibrillator Coding Level of Care Code Procedure Only Diagnoses ICD (implantable cardioverter-defibrillator) in place Z95.810 CPT Codes Cardiac Device Check - Cardiac Device 14: [id number] Cardiac Device Interrogation, pacemaker or defibrillator ([id number])
== END ==
PROVIDERS: PCP Internal Medicine; Visit Provider Internal Medicine Cardiovascular Disease
DX: I50.32 Chronic diastolic (congestive) heart failure (principal); Z95.810 Presence of automatic (implantable) cardiac defibrillator
CPT/HCPCS: 93295

== ENCOUNTER 2023-05-29 08:14 | Outpatient (AMB) | payer MEDICARE, SELFPAY ==
[2023-05-29 08:27] LABS: Prothrombin Time Whole Bld POC 46.8 sec (11.1-13.5); ~PT, ~INR - Anti Coag Clinic 3.9 (0.9-1.1)
--- NOTE | 2023-05-29 08:33 | MHC.OFFVISCO ---
Intake Intake Visit Reasons: Anticoagulation Allergies Penicillins [PENICILLINS] Allergy (Severe, Verified 05/29/23 08:22) HIVES Medication List - Last Reconciled 05/29/23 by Therese Bass RN aspirin (Lo-Dose Aspirin) 81 mg PO DAILY atorvastatin 40 mg PO DAILY furosemide 80 mg PO DAILY lisinopril 40 mg PO DAILY metoprolol succinate ER 50 mg PO DAILY multivit,calc,oon-IM-Z2-lycop 240 mcg-30 mcg- 300 mcg (One-A-Day Men's Complete) 1 tab PO DAILY warfarin 5 mg See Protocol PO DAILY Nursing Note PT. HAS HAD INCREASED TYLENOL RECENTTLY AND LESS GREENS NO CP,SOB OR SX OF BLEEDING. HOLD WARFARIN TOMORROW(TOOK TODAY) THEN RESUME USUAL DOSE AND FOLLOW-UP IN 2 WEEKS. WILL BE SURE TO HAVE GREENS TODAY AND 2-3X WEEKLY GOOD UYNDERSTANDING OF DOSING INSTR. 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
== END 2023-05-29 08:35 | disposition home or self-care (01) ==
LOC: HO.ACS 08:14
PROVIDERS: PCP Internal Medicine; Visit Provider Internal Medicine
DX: Z79.01 Long term (current) use of anticoagulants (principal)

== ENCOUNTER → 2023-05-29 08:14 | Outpatient (BNVA) | payer MEDICARE, SELFPAY | PROVIDERS: PCP Internal Medicine; Visit Provider Internal Medicine | DX: Z95.2 Presence of prosthetic heart valve (principal); Z79.01 Long term (current) use of anticoagulants; Z51.81 Encounter for therapeutic drug level monitoring | CPT/HCPCS: 85610; 99211 ==

== ENCOUNTER 2023-06-12 08:09 | Outpatient (AMB) | payer MEDICARE, SELFPAY ==
[2023-06-12 08:25] LABS: Prothrombin Time Whole Bld POC 34.4 sec (11.1-13.5); ~PT, ~INR - Anti Coag Clinic 2.9 (0.9-1.1)
--- NOTE | 2023-06-12 08:30 | MHC.OFFVISCO ---
Intake Intake Visit Reasons: Anticoagulation Allergies Penicillins [PENICILLINS] Allergy (Severe, Verified 06/12/23 08:19) HIVES Medication List - Last Reconciled 06/12/23 by Therese Bass RN aspirin (Lo-Dose Aspirin) 81 mg PO DAILY atorvastatin 40 mg PO DAILY furosemide 80 mg PO DAILY lisinopril 40 mg PO DAILY metoprolol succinate ER 50 mg PO DAILY multivit,calc,nbl-PO-F2-lycop 240 mcg-30 mcg- 300 mcg (One-A-Day Men's Complete) 1 tab PO DAILY warfarin 5 mg See Protocol PO DAILY Nursing Note PT. STATES THAT HE FELL 2 WEEKS AGO AND HAS HAD LOW BACK PAIN. HE IS TAKING TYLENOL DAILY WITH SOME RELIEF OF PAIN. BACK X RAYS WERE NEGATIVE HE STATES. PT.HAS FOLLOW-UP WITH PCP IN 2 WEEKJS. CONTINUE PRESENT DOSE AND FOLLOW-UP IN 2 WEEKS HERE. WILL BE SURE TO HAVE MORE GREENS JEAN-PAUL.WHILE TAKING TYLENOL. GOOD UNDERSTANDING OF DOSING INSTR. 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
== END 2023-06-12 08:33 | disposition home or self-care (01) ==
LOC: HO.ACS 08:09
PROVIDERS: PCP Internal Medicine; Visit Provider Internal Medicine
DX: Z79.01 Long term (current) use of anticoagulants (principal)

== ENCOUNTER → 2023-06-12 08:09 | Outpatient (BNVA) | payer MEDICARE, SELFPAY | PROVIDERS: PCP Internal Medicine; Visit Provider Internal Medicine | DX: Z95.2 Presence of prosthetic heart valve (principal); Z79.01 Long term (current) use of anticoagulants; Z51.81 Encounter for therapeutic drug level monitoring | CPT/HCPCS: 85610; 99211 ==

== ENCOUNTER → 2023-06-12 23:59 | Outpatient (BNV) | payer MEDICARE, SELFPAY ==
--- NOTE | 2023-06-17 21:22 | A.OFFVIS_ITS ---
Intake Intake Visit Reasons: Remote HF Monitoring- [facility] Allergies Penicillins [PENICILLINS] Allergy (Severe, Verified 06/12/23 08:19) HIVES [facility] Medical History (Updated 04/28/23 @ 11:42 by Timothy Jade MD) Current use of anticoagulant therapy Surgical History History of cardiac cath History of aortic valve replacement Family History Father No problems noted. Mother No problems noted. Social History Alcohol intake: current Alcohol intake frequency: a few times a month Alcohol type: beer Patient Tobacco Use Status: Former Tobacco user Quit Date: 2012 Smoked: 23 +/- Office Procedures Cardiac Device Check Cardiac Device Check Details: HF monitoring Stable thoracic impedance. [id number] Cardiac Device Interrogation, cardio physiologic monitor Procedure code (CPT) selection complete Assessment & Plan Assessment & Plan (1) Chronic diastolic CHF (congestive heart failure): Code(s): I50.32 - Chronic diastolic (congestive) heart failure Plan: Orders: Orders AMB Cardiac Device Follow-up 06/12/23 I50.32 - Chronic diastolic (congestive) heart failure Coding Level of Care Code Procedure Only Diagnoses Chronic diastolic CHF (congestive heart failure) I50.32 CPT Codes Cardiac Device Check - Cardiac Device 15: [id number] Cardiac Device Interrogation, cardio physiologic monitor ([id number])
== END ==
PROVIDERS: PCP Internal Medicine; Visit Provider Internal Medicine Cardiovascular Disease
DX: I50.32 Chronic diastolic (congestive) heart failure (principal); Z95.810 Presence of automatic (implantable) cardiac defibrillator
CPT/HCPCS: 93297

== ENCOUNTER 2023-06-26 08:14 | Outpatient (AMB) | payer MEDICARE, SELFPAY ==
--- NOTE | 2023-06-26 08:27 | MHC.OFFVISCO ---
Intake Intake Visit Reasons: Anticoagulation Allergies Penicillins [PENICILLINS] Allergy (Severe, Verified 06/26/23 08:23) HIVES Medication List - Last Reconciled 06/26/23 by Angela Cameron RN aspirin (Lo-Dose Aspirin) 81 mg PO DAILY atorvastatin 40 mg PO DAILY furosemide 80 mg PO DAILY lisinopril 40 mg PO DAILY metoprolol succinate ER 50 mg PO DAILY multivit,calc,frt-HY-S5-lycop 240 mcg-30 mcg- 300 mcg (One-A-Day Men's Complete) 1 tab PO DAILY warfarin 5 mg See Protocol PO DAILY Nursing Note INR 3.6-? out of therapeutic range of 2-3 Medications and supplements reviewed Patient status: pt with c.o back pain since apr, will call pcp today. pt states xrays neg Medications or supplements: no changes, taking tylenol prn Diet: same Denies any signs and symptoms of bleeding or clotting or unusual bruising Bleeding, bruising, clotting discussed Nutritional guidance given: eat greens to lower, no reds for 2 days Dose: pt already took warfarin today, hold 2.5mg tomm then cont reg dosing F/U INR Date : 2 weeks?? Patient verbalizing understanding of instructions given. Anti-Coag Initial Assessment Social Hx Patient Tobacco Use Status: Former Tobacco user Quit Date: 2012 alcohol intake: current Alcohol intake frequency: a few times a month Coding Level of Care Code Est Patient Level 1 Diagnoses Current use of anticoagulant therapy Z79.01 Assessment & Plan Assessment & Plan (1) Current use of anticoagulant therapy: Code(s): Z79.01 - retirement (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
[2023-06-26 08:28] LABS: ~PT, ~INR - Anti Coag Clinic 3.6 (0.9-1.1)
== END 2023-06-26 08:50 | disposition home or self-care (01) ==
LOC: HO.ACS 08:14
PROVIDERS: PCP Internal Medicine; Visit Provider Internal Medicine
DX: Z79.01 Long term (current) use of anticoagulants (principal)

== ENCOUNTER → 2023-06-26 08:14 | Outpatient (BNVA) | payer MEDICARE, SELFPAY | PROVIDERS: PCP Internal Medicine; Visit Provider Internal Medicine | DX: Z95.2 Presence of prosthetic heart valve (principal); Z79.01 Long term (current) use of anticoagulants; Z51.81 Encounter for therapeutic drug level monitoring | CPT/HCPCS: 85610; 99211 ==

== ENCOUNTER 2023-07-10 06:39 | Outpatient (REF) | payer MEDICARE, SELFPAY ==
[2023-07-10 08:10] LABS: MANUAL DIFF FLAG NO
[2023-07-10 08:49] LABS: Basophils Percent Auto 0.4 % (0-2); Eosinophils Absolute Auto 0.2 X10*3/uL (0.0-0.4); Eosinophils Percent Auto 2.1 % (0-4); Hematocrit 42.2 % (42.0-52.0); Hemoglobin 13.8 g/dl (14.0-18.0); Imm Gran Abs Auto 0.01 X10*3/uL (0.00-0.03); Imm Gran Pct Auto 0.1 % (0.0-0.4); Lymphocytes Absolute Auto 1.7 X10*3/uL (1.2-4.9); Lymphocytes Percent Auto 22.9 % (20-40); Mean Corpuscular HGB Conc 32.7 g/dl (31.0-36.0); Mean Corpuscular Hemoglobin 30.8 pg (27.0-33.0); Mean Corpuscular Volume 94.2 fL (80.0-98.0); Mean Platelet Volume 10.6 fL (9.4-12.4); Monocytes Absolute Auto 0.8 X10*3/uL (0.1-1.2); Monocytes Percent Auto 10.5 % (2-11); Neutrophils Absolute Auto 4.9 x10*3/uL (2.0-8.3); Platelet Count 143 X10*3/uL (160-400); Red Blood Count 4.48 X10*6/uL (4.60-5.80); Red Cell Distribution Width 13.1 % (11.0-16.0); White Blood Count 7.6 X10*3/uL (4.8-10.8)
[2023-07-10 09:20] LABS: B Type Natriuretic Peptide 148 pg/mL (<100)
[2023-07-10 09:23] LABS: Anion Gap 14 (12-20); Blood Urea Nitrogen 16 mg/dL (9-16); Calcium 9.4 mg/dL (8.4-10.2); Carbon Dioxide 28 mmol/L (22-29); Chloride 104 mmol/L (96-108); Estimated Glomerular Filt Rate > 60; Glucose Random 105 mg/dL (60-115); Potassium 3.9 mmol/L (3.3-5.1); Sodium 142 mmol/L (135-145)
== END 2023-07-10 06:40 | disposition home or self-care (01) ==
LOC: HO.LAB 06:39
PROVIDERS: PCP Internal Medicine; Visit Provider Internal Medicine Cardiovascular Disease
DX: I11.0 Hypertensive heart disease with heart failure (principal); I50.32 Chronic diastolic (congestive) heart failure; R53.83 Other fatigue
CPT/HCPCS: 36415; 80048; 83880; 85025; 85610; 99211

== ENCOUNTER 2023-07-10 08:21 | Outpatient (AMB) | payer MEDICARE, SELFPAY ==
[2023-07-10 08:29] LABS: Prothrombin Time Whole Bld POC 36.9 sec (11.1-13.5); ~PT, ~INR - Anti Coag Clinic 3.1 (0.9-1.1)
--- NOTE | 2023-07-10 08:35 | MHC.OFFVISCO ---
Intake Intake Visit Reasons: Anticoagulation Allergies Penicillins [PENICILLINS] Allergy (Severe, Verified 07/10/23 08:21) HIVES Medication List - Last Reconciled 07/10/23 by Janet Deng, RN aspirin (Lo-Dose Aspirin) 81 mg PO DAILY atorvastatin 40 mg PO DAILY furosemide 80 mg PO DAILY lisinopril 40 mg PO DAILY metoprolol succinate ER 50 mg PO DAILY multivit,calc,wxo-UV-V0-lycop 240 mcg-30 mcg- 300 mcg (One-A-Day Men's Complete) 1 tab PO DAILY warfarin 5 mg See Protocol PO DAILY Nursing Note no changes in medications or diet or health status. no unusual bleeding, bruising, chest pain or sob. PT will lower weekly dose to 2.5mg daily. f/u in 2 weeks Anti-Coag Initial Assessment Social Hx Patient Tobacco Use Status: Former Tobacco user Quit Date: 2012 alcohol intake: current Alcohol intake frequency: a few times a month Coding Level of Care Code Est Patient Level 1 Diagnoses Current use of anticoagulant therapy Z79.01 Results AMB INR Fingerstick AMB INR Fingerstick 3.1 Last Edit by Janet Deng, GOVIND on 07/10/23 08:29 Assessment & Plan Assessment & Plan (1) Current use of anticoagulant therapy: Code(s): Z79.01 - longterm (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
== END 2023-07-10 08:38 | disposition home or self-care (01) ==
LOC: HO.ACS 08:21
PROVIDERS: PCP Internal Medicine; Visit Provider Internal Medicine
DX: Z79.01 Long term (current) use of anticoagulants (principal)

== ENCOUNTER 2023-07-11 13:34 | Outpatient (AMB) | payer MEDICARE, SELFPAY ==
--- NOTE | 2023-07-11 13:56 | A.OFFVIS_ITS ---
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 Accompanied by: Self / Same As Patient Allergies Penicillins [PENICILLINS] Allergy (Severe, Verified 07/11/23 14:00) HIVES Medication List - Last Reconciled 07/11/23 by Dianne Polanco NP aspirin (Lo-Dose Aspirin) 81 mg PO DAILY atorvastatin 40 mg PO DAILY furosemide 80 mg PO DAILY lisinopril 40 mg PO DAILY metoprolol succinate ER 50 mg PO DAILY multivit,calc,fyr-GI-N7-lycop 240 mcg-30 mcg- 300 mcg (One-A-Day Men's Complete) 1 tab PO DAILY warfarin 5 mg See Protocol PO DAILY HPI HPI Comments History of Present Illness Details 83-[facility]. He reports the last 2-3 weeks he has been more fatigue then normal. He reports he has been taking his medications as prescribed. He is currently on lasix 80mg in the morning. He is in physical therapy due to a recent fall about one month ago in which he injured his back. He denies any shortness of breath, orthopnea, abnormal swelling, or chest pain. He has some mild chronic swelling in his right leg from a DVT. He states he has not drank alcohol in 3 months but has been eating a lot more frozen food lately. He does not weigh himself at home. Labs done 07/10/23 showed a BNP of 148, Cr of 1.09, Hgn of 13.8, Hct of 42.2. [facility] Medical History Fatigue Current use of anticoagulant therapy Surgical History History of cardiac cath History of aortic valve replacement Family History Father No problems noted. Mother No problems noted. Social History Alcohol intake: current Alcohol intake frequency: a few times a month Alcohol type: beer Patient Tobacco Use Status: Former Tobacco user Quit Date: 2012 Years Smoked: 23 +/- Review of Systems Const Denies chills, Reports fatigue, Denies fever(s), Denies frequent falls, Denies weakness, Denies weight gain and Denies weight loss ENT Denies dizziness Card Denies chest pain, Denies chest pain with activity, Denies syncope, Denies rapid heart rate, Denies pedal edema, Denies irregular heart rhythm, Denies leg edema, Denies lightheadedness, Denies palpitations, Denies dyspnea, Denies dyspnea on exertion, Denies orthopnea and Denies other (LOC) Resp Denies cough, Denies dyspnea and Denies dyspnea on exertion GI Denies hematochezia and Denies change in bowel habits Musc Denies abnormal gait, Denies arthralgias, Denies muscle weakness, Denies numbness, Denies radiating pain into limb and Denies tingling Neuro Denies abnormal gait, Denies dizziness, Denies syncope, Denies frequent falls, Denies numbness, Denies tingling and Denies weakness Endo Reports fatigue and Denies palpitations Physical Exam Vital Signs: Last Vital Signs Pulse 60 07/11/23 14:00 BP 122/68 07/11/23 14:00 BMI result Body Mass Index 37.4 Const General: healthy appearing and no acute distress Orientation/consciousness: patient oriented x3 HEENT Head: Yes normal to inspection Eyes General: appearance normal, both eyes and all related structures Neck Neck: Yes normal visual inspection Chest Chest palpation & inspection: normal inspection of the chest Resp Effort & Inspection: normal respiratory effort Auscultation: clear to auscultation bilaterally Cardio Jugular venous distension: no JVD Palpation: normal PMI Rate: regular rate Rhythm: regular rhythm Heart sounds: S1 normal heart sound present, S2 normal heart sound present, no click, no gallops, no murmurs and no rubs GI Inspection: Yes normal to inspection Palpation (GI): Soft to palpation Skin General skin exam: no rashes or lesions noted Neuro General: patient oriented x3 Extrem General: Yes normal to inspection Right lower extremity: edema (mild chronic swelling) Details: non-pitting Psych Appearance: grossly normal Office Procedures EKG Details: EKG today. Rate 60 bpm. Atrial paced rhythm. Possible right ventricle hypertrophy. QRS 164ms. QTc 472ms. No significant changes. [id number], Complete Results Reviewed Results Reviewed: Laboratory Tests 07/10/23 08:07 Hgb 13.8 L Hct 42.2 Creatinine 1.09 B-Natriuretic Peptide 148 H Assessment & Plan Assessment & Plan (1) Chronic diastolic CHF (congestive heart failure): Code(s): I50.32 - Chronic diastolic (congestive) heart failure (2) Essential hypertension: Code(s): I10 - Essential (primary) hypertension Plan Does not appear to be fluid overloaded today. Will get a repeat echo to assess EF. Last echcoardiogram in 08/2021 EF of 65-70% and a mildly increased right ventricle cavity. Will have him increase the lasix to an additional 40mg in the afternoon. Discussed in detail about added salt in prepared foods. Will recheck labs next week to assess kidney function and BNP. Will follow-up with me once he has his echo. Orders: Orders B Type Natriuretic Peptide 1 Week I50.32 - Chronic diastolic (congestive) heart failure, R53.83 - Other fatigue CA echo transthoracic complete Today I50.32 - Chronic diastolic (congestive) heart failure Basic Metabolic Panel 1 Week I10 - Essential (primary) hypertension, I50.32 - Chronic diastolic (congestive) heart failure Medications: Changed From furosemide 80mg in the AM and 40mg in the PM orally daily; To furosemide 80mg in the AM and 40mg in the PM orally daily; 30 days 90 tabs 1RF Coding Level of Care Code Est Pt Level 3 (79286) Diagnoses Chronic diastolic CHF (congestive heart failure) I50.32 Essential hypertension I10 CPT Codes EKG - CPT: 53689-[id number], Complete ([id number])
[2023-07-11 14:00] VITALS: BP 122/68; PULSE 60; BMI 37.4
== END 2023-07-11 14:53 | disposition home or self-care (01) ==
PROVIDERS: PCP Internal Medicine; Visit Provider Nurse Practitioner
DX: I50.32 Chronic diastolic (congestive) heart failure (principal); I10 Essential (primary) hypertension
CPT/HCPCS: 93010; 99213

== ENCOUNTER → 2023-07-11 13:34 | Outpatient (BNVA) | payer MEDICARE, SELFPAY | PROVIDERS: PCP Internal Medicine; Visit Provider Nurse Practitioner | DX: I11.0 Hypertensive heart disease with heart failure (principal); I50.32 Chronic diastolic (congestive) heart failure; Z79.899 Other long term (current) drug therapy | CPT/HCPCS: 93005; 99212 ==

== ENCOUNTER 2023-07-24 08:47 | Outpatient (AMB) | payer MEDICARE, SELFPAY ==
[2023-07-24 08:59] LABS: Prothrombin Time Whole Bld POC 32.5 sec (11.1-13.5); ~PT, ~INR - Anti Coag Clinic 2.7 (0.9-1.1)
--- NOTE | 2023-07-24 09:02 | MHC.OFFVISCO ---
Intake Intake Visit Reasons: Anticoagulation Allergies Penicillins [PENICILLINS] Allergy (Severe, Verified 07/24/23 08:53) HIVES Nursing Note INR: 2.7 in therapeutic range of 2-3 Medications and supplements reviewed No changes in health, diet, medications, or supplements, Denies any signs and symptoms of bleeding or bruising or clotting. Bleeding, bruising, clotting discussed Nutritional guidance given , continue to balance greens and reds. Dose: same dose of 2.5mg daily F/U INR: 2 weeks Patient verbalizes understanding of instructions given Anti-Coag Initial Assessment Social Hx Patient Tobacco Use Status: Former Tobacco user Quit Date: 2012 alcohol intake: current Alcohol intake frequency: a few times a month Coding Level of Care Code Est Patient Level 1 Diagnoses Current use of anticoagulant therapy Z79.01 Assessment & Plan Assessment & Plan (1) Current use of anticoagulant therapy: Code(s): Z79.01 - [facility] (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
== END 2023-07-24 09:04 | disposition home or self-care (01) ==
LOC: HO.ACS 08:47
PROVIDERS: PCP Internal Medicine; Visit Provider Internal Medicine
DX: Z79.01 Long term (current) use of anticoagulants (principal)

== ENCOUNTER → 2023-07-24 08:47 | Outpatient (BNVA) | payer MEDICARE, SELFPAY | PROVIDERS: PCP Internal Medicine; Visit Provider Internal Medicine | DX: Z95.2 Presence of prosthetic heart valve (principal); Z79.01 Long term (current) use of anticoagulants; Z51.81 Encounter for therapeutic drug level monitoring | CPT/HCPCS: 85610; 99211 ==

== ENCOUNTER → 2023-07-25 23:59 | Outpatient (BNV) | payer MEDICARE, SELFPAY ==
--- NOTE | 2023-07-28 14:28 | MHC.OFFVIS ---
Intake Intake Visit Reasons: Remote HF Monitoring- [facility] Allergies Penicillins [PENICILLINS] Allergy (Severe, Verified 07/24/23 08:53) HIVES [facility] Medical History Fatigue Current use of anticoagulant therapy Surgical History History of cardiac cath History of aortic valve replacement Family History Father No problems noted. Mother No problems noted. Social History Alcohol intake: current Alcohol intake frequency: a few times a month Alcohol type: beer Patient Tobacco Use Status: Former Tobacco user Quit Date: 2012 Smoked: 23 +/- Office Procedures Cardiac Device Check Cardiac Device Check Details: HF monitoring Stable thoracic impedance. [id number] Cardiac Device Interrogation, cardio physiologic monitor Procedure code (CPT) selection complete Assessment & Plan Assessment & Plan (1) Chronic diastolic CHF (congestive heart failure): Code(s): I50.32 - Chronic diastolic (congestive) heart failure Plan Orders: Orders AMB Cardiac Device Follow-up 07/25/23 I48.0 - Paroxysmal atrial fibrillation Coding Level of Care Code Procedure Only Diagnoses Chronic diastolic CHF (congestive heart failure) I50.32 CPT Codes Cardiac Device Check - Cardiac Device 15: [id number] Cardiac Device Interrogation, cardio physiologic monitor ([id number])
== END ==
PROVIDERS: PCP Internal Medicine; Visit Provider Internal Medicine Cardiovascular Disease
DX: I50.32 Chronic diastolic (congestive) heart failure (principal)
CPT/HCPCS: 93297

== ENCOUNTER 2023-08-07 08:36 | Outpatient (AMB) | payer MEDICARE, SELFPAY ==
--- NOTE | 2023-08-07 09:02 | MHC.OFFVISCO ---
Intake Intake Visit Reasons: Anticoagulation Allergies Penicillins [PENICILLINS] Allergy (Severe, Verified 08/07/23 08:50) HIVES Medication List - Last Reconciled 08/07/23 by Destinee Pascal RN aspirin (Lo-Dose Aspirin) 81 mg PO DAILY atorvastatin 40 mg PO DAILY furosemide 80mg in the AM and 40mg in the PM orally daily; 30 days lisinopril 40 mg PO DAILY metoprolol succinate ER 50 mg PO DAILY multivit,calc,alc-UJ-S4-lycop 240 mcg-30 mcg- 300 mcg (One-A-Day Men's Complete) 1 tab PO DAILY warfarin 5 mg See Protocol PO DAILY Nursing Note INR: 2.7 in therapeutic range Medications and supplements reviewed- TAKING OCC TYLENOL FOR BACK PAIN FELL IN APRIL AND STILL BOTHERING HIM GOING TO PHYSICAL THERAPY, STATES HARD TO DUE CHORES AROUND HIS HOME, ENC TO ASK MD AND OR INSURANCE IF HE CAN HOME HEALTH 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 Bleeding, bruising, clotting discussed Nutritional guidance given Dose: 2.5MG DAILY F/U INR: 2 WEEKS Patient verbalizes understanding of instructions given Anti-Coag Initial Assessment Social Hx Patient Tobacco Use Status: Former Tobacco user Quit Date: 2012 alcohol intake: current Alcohol intake frequency: a few times a month Coding Level of Care Code Est Patient Level 1 Diagnoses Current use of anticoagulant therapy Z79.01 Results AMB INR Fingerstick AMB INR Fingerstick 2.7 Last Edit by Destinee Pascal RN on 08/07/23 09:02 manual Assessment & Plan Assessment & Plan (1) Current use of anticoagulant therapy: Code(s): Z79.01 - half-way (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
[2023-08-07 16:07] LABS: Prothrombin Time Whole Bld POC 31.8 sec (11.1-13.5); ~PT, ~INR - Anti Coag Clinic 2.7 (0.9-1.1)
== END 2023-08-07 09:10 | disposition home or self-care (01) ==
LOC: HO.ACS 08:36
PROVIDERS: PCP Internal Medicine; Visit Provider Internal Medicine
DX: Z79.01 Long term (current) use of anticoagulants (principal)

== ENCOUNTER → 2023-08-07 08:36 | Outpatient (BNVA) | payer MEDICARE, SELFPAY | PROVIDERS: PCP Internal Medicine; Visit Provider Internal Medicine | DX: Z95.2 Presence of prosthetic heart valve (principal); Z79.01 Long term (current) use of anticoagulants; Z51.81 Encounter for therapeutic drug level monitoring | CPT/HCPCS: 85610; 99211 ==

== ENCOUNTER → 2023-08-11 07:52 | Outpatient (REF) | payer MEDICARE, SELFPAY ==
--- NOTE | 2023-08-11 07:54 | CA_ITS ---
Transthoracic Echocardiogram Patient (Last, First, Middle): Tad Villar J Gender: Male Date of : 1940 Age: 83 Procedure Date: 08/11/2023 Procedure Type: Transthoracic Echocardiogram Location: OP Height: 177.8 cm Weight: 117.94 kg BSA: 2.33 m2 Heart Rate: bpm BP: 130 / 60 mmHg Dental Cream Maker: ANNA Referring MD: Dianne Polanco NP Symptoms: I50.32 - Chronic diastolic (congestive) heart failure Study Quality: Fair ECG Rhythm: Sinus Conclusions: - The left ventricular systolic function is normal. The calculated ejection fraction is 60% by biplane method. - The basal inferior segment is akinetic. - The basal inferolateral segment is hypokinetic. - A mechanical prosthetic aortic valve is present. The prosthetic aortic valve appears to be functioning normally. - There is mild dilatation of the ascending aorta measuring 4.20 cm. Findings Procedure Information The study quality is limited by the patients inability to tolerate the test. Left Ventricle Normal left ventricular cavity size. There is mildly increased left ventricular wall thickness. The left ventricular systolic function is normal. The calculated ejection fraction is 60% by biplane method. There is no evidence of regional wall motion abnormalities. Evidence suggests grade I (mild) diastolic dysfunction. Wall Motion Rest Echo Findings The basal inferolateral segment is hypokinetic. The basal inferior segment is akinetic. Right Ventricle Moderately increased right ventricular cavity size. There is normal right ventricular systolic function. Atria The left atrium is mildly dilated. The right atrium is normal in size. Aortic Valve A mechanical prosthetic aortic valve is present. The prosthetic aortic valve appears to be functioning normally. There is no aortic valve regurgitation. Normal acceleration time. Mitral Valve There is mild mitral annular calcification. There is trace mitral valve regurgitation. There is no mitral valve stenosis. Pulmonic Valve The pulmonic valve is likely normal. Tricuspid Valve There is mild tricuspid valve regurgitation. There is no evidence of pulmonary hypertension. Great Vessels There is mild dilatation of the ascending aorta measuring 4.20 cm. Small plaque is seen in the sinuses of Valsalva. Venous The inferior vena cava was not well visualized. Pericardium/Pleural There is no evidence of pericardial effusion. Prior Study Comparison Changes noted compared to prior study dated: 09/11/2021. see comment on wall motion. Measurements 2D Linear Measurements IVSd: 1.17 0.6-0.9/0.6-1.0 cm LVIDd: 5.27 3.9-5.3/4.2-5.9 cm LVIDd Index: 2.26 2.4-3.2/2.2-3.1 cm/m2 LVIDs: 4.06 2.0-3.6 cm LVPWd: 1.10 0.7-1.1 cm LA Diam: 4.30 2.7-3.8/3.0-4.0 cm LAIDs Index: 1.85 1.5-2.3 cm/m2 LV Mass: 293.59 67-162/88-224 g LV Mass Index: 126.00 43-95/49-115 g/m2 LVOT Diam: 2.10 3.0+(-)1.3 cm 2D Systolic Function EF 4C: 58.90 >55% EF 2C: 62.90 >55% EF BiP: 60.40 >55% Mitral Valve MV Pk E: 1.01 MV PK A: 1.05 MV Decel Time: 146.00 E/A: 1.00 E'Lateral: 4.68 E'Medial: 4.79 E/E' Med: 21.10 E/E' Lat: 21.60 PHT: 43.00 MVA PHT: 5.12 Decel [place]: 6.92 Aortic Valve AoV Pk Jordi: 2.87 AoV Mn Jordi: 1.88 AoV VTI: 0.58 AoV Pk Grad: 33.00 Aov Mn Grad: 17.00 NA Cont.VTI: 1.20 LVOT LVOT Pk Jordi: 0.91 LVOT Mn Jordi: 0.60 LVOT VTI: 0.20 LVOT Pk Grad: 3.00 LVOT Mn Grad: 2.00 LVOT Diam: 2.10 LVOT Area: 3.46 Diastolic Function MV Pk E: 1.01 MV Pk A: 1.05 E/A: 1.00 E'Medial: 4.79 E/E' Med: 21.10 E' Laterial: 4.68 E/E' Lat: 21.60 Right Ventricle TAPSE (mm): 18.30 TVS' Jordi: 10.40 Tricuspid Valve TR Pk Jordi: 2.59 TR Pk Grad: 27.00 Great Vessels Aorta Ao Asc: 4.20 2.1-3.4 cm Updated in Other Vendor System with Status of Final Payam Linda MD electronically signed on 08/11/2023 8:30:42 AM with status of Final
== END ==
LOC: HO.CARD 07:52
PROVIDERS: PCP Internal Medicine; Visit Provider Nurse Practitioner
DX: I50.32 Chronic diastolic (congestive) heart failure (principal)
CPT/HCPCS: 93306

== ENCOUNTER → 2023-08-11 07:54 | Outpatient (BNV) | payer MEDICARE, SELFPAY | PROVIDERS: PCP Internal Medicine; Visit Provider Internal Medicine | DX: I50.32 Chronic diastolic (congestive) heart failure (principal); I36.1 Nonrheumatic tricuspid (valve) insufficiency | CPT/HCPCS: 93306 ==

== ENCOUNTER 2023-08-21 08:35 | Outpatient (AMB) | payer MEDICARE, SELFPAY ==
--- NOTE | 2023-08-21 08:53 | MHC.OFFVISCO ---
Intake Intake Visit Reasons: Anticoagulation Allergies Penicillins [PENICILLINS] Allergy (Severe, Verified 08/21/23 08:37) HIVES Medication List - Last Reconciled 08/21/23 by Therese Bass RN aspirin (Lo-Dose Aspirin) 81 mg PO DAILY atorvastatin 40 mg PO DAILY furosemide 80mg in the AM and 40mg in the PM orally daily; 30 days lisinopril 40 mg PO DAILY metoprolol succinate ER 50 mg PO DAILY multivit,calc,tvs-PU-K4-lycop 240 mcg-30 mcg- 300 mcg (One-A-Day Men's Complete) 1 tab PO DAILY warfarin 5 mg See Protocol PO DAILY Nursing Note PT.MAY HAVE MISSED A DOSE THIS WEEK. NO CP,SOB,DEIET/MED CHANGES,FALLS OR SX OF BLEEDING. BOOST TO 5MGM TODAY THEN RESUME USUAL DOSE AND FOLLOW-UP IN 2 WEEKS. GOOD UNDERSTANDING OF DOSING ISNTR. Anti-Coag Initial Assessment Social Hx Patient Tobacco Use Status: Former Tobacco user Quit Date: 2012 alcohol intake: current Alcohol intake frequency: a few times a month Coding Level of Care Code Est Patient Level 1 Diagnoses Current use of anticoagulant therapy Z79.01 Results AMB INR Fingerstick AMB INR Fingerstick 1.7 Last Edit by Therese Bass RN on 08/21/23 08:44 Assessment & Plan Assessment & Plan (1) Current use of anticoagulant therapy: Code(s): Z79.01 - [facility] (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
[2023-08-21 08:54] LABS: Prothrombin Time Whole Bld POC 20.6 sec (11.1-13.5); ~PT, ~INR - Anti Coag Clinic 1.7 (0.9-1.1)
== END 2023-08-21 08:54 | disposition home or self-care (01) ==
LOC: HO.ACS 08:35
PROVIDERS: PCP Internal Medicine; Visit Provider Internal Medicine
DX: Z79.01 Long term (current) use of anticoagulants (principal)

== ENCOUNTER → 2023-08-21 08:35 | Outpatient (BNVA) | payer MEDICARE, SELFPAY | PROVIDERS: PCP Internal Medicine; Visit Provider Internal Medicine | DX: Z95.2 Presence of prosthetic heart valve (principal); Z79.01 Long term (current) use of anticoagulants; Z51.81 Encounter for therapeutic drug level monitoring | CPT/HCPCS: 85610; 99211 ==

== ENCOUNTER → 2023-08-25 23:59 | Outpatient (BNV) | payer MEDICARE, SELFPAY ==
--- NOTE | 2023-09-03 12:40 | A.OFFVIS_ITS ---
Intake Intake Visit Reasons: Remote ICD Check- [facility] Allergies Penicillins [PENICILLINS] Allergy (Severe, Verified 08/21/23 08:37) HIVES [facility] Medical History Fatigue Current use of anticoagulant therapy Surgical History History of cardiac cath History of aortic valve replacement Family History Father No problems noted. Mother No problems noted. 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 Battery life more than 2 years. No new alerts. Bi V paced more than 99%. [id number] Cardiac Device Interrogation, pacemaker or defibrillator Procedure code (CPT) selection complete Assessment & Plan Assessment & Plan (1) Chronic diastolic CHF (congestive heart failure): Code(s): I50.32 - Chronic diastolic (congestive) heart failure Plan: Coding Level of Care Code Procedure Only Diagnoses Chronic diastolic CHF (congestive heart failure) I50.32 CPT Codes Cardiac Device Check - Cardiac Device 14: [id number] Cardiac Device Interrogation, pacemaker or defibrillator ([id number])
== END ==
PROVIDERS: PCP Internal Medicine; Visit Provider Internal Medicine Cardiovascular Disease
DX: I50.32 Chronic diastolic (congestive) heart failure (principal)
CPT/HCPCS: 93296

== ENCOUNTER 2023-09-04 08:47 | Outpatient (AMB) | payer MEDICARE, SELFPAY ==
[2023-09-04 08:52] LABS: Prothrombin Time Whole Bld POC 29.3 sec (11.1-13.5); ~PT, ~INR - Anti Coag Clinic 2.4 (0.9-1.1)
--- NOTE | 2023-09-04 08:53 | MHC.OFFVISCO ---
Intake Intake Visit Reasons: Anticoagulation Allergies Penicillins [PENICILLINS] Allergy (Severe, Verified 09/04/23 08:48) HIVES Nursing Note INR: 2.4 in therapeutic range of 2-3 Medications and supplements reviewed, no changes No changes in health, diet, medications, or supplements, Denies any signs and symptoms of bleeding or bruising or clotting. Bleeding, bruising, clotting discussed Nutritional guidance given continue to balance greens and reds Dose: continue 2.5mg daily F/U INR: 2 weeks Patient verbalizes understanding of instructions given Anti-Coag Initial Assessment Social Hx Patient Tobacco Use Status: Former Tobacco user Quit Date: 2012 alcohol intake: current Alcohol intake frequency: a few times a month Coding Level of Care Code Est Patient Level 1 Diagnoses Current use of anticoagulant therapy Z79.01 Assessment & Plan Assessment & Plan (1) Current use of anticoagulant therapy: Code(s): Z79.01 - [facility] (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
== END 2023-09-04 09:02 | disposition home or self-care (01) ==
LOC: HO.ACS 08:47
PROVIDERS: PCP Internal Medicine; Visit Provider Internal Medicine
DX: Z79.01 Long term (current) use of anticoagulants (principal)

== ENCOUNTER → 2023-09-04 08:47 | Outpatient (BNVA) | payer MEDICARE, SELFPAY | PROVIDERS: PCP Internal Medicine; Visit Provider Internal Medicine | DX: Z95.2 Presence of prosthetic heart valve (principal); Z79.01 Long term (current) use of anticoagulants; Z51.81 Encounter for therapeutic drug level monitoring | CPT/HCPCS: 85610; 99211 ==

== ENCOUNTER 2023-09-09 08:00 | Outpatient (RCR) | payer MEDICARE, SELFPAY | END 2023-09-09 10:08 | disposition home or self-care (01) | LOC: HO.PT 08:00 | PROVIDERS: PCP Internal Medicine; Visit Provider Internal Medicine | DX: S39.93XA Unspecified injury of pelvis, initial encounter (principal) | CPT/HCPCS: 97110; 97140; 97163 ==

== ENCOUNTER 2023-09-15 09:44 | Outpatient (AMB) | payer MEDICARE, SELFPAY ==
--- NOTE | 2023-09-15 10:03 | A.OFFVIS_ITS ---
Intake Vital Signs 09/15/23 10:04 Height 5 ft 10 in Weight 251 lb 5.231 oz BMI 36.1 BP 120/60 Blood Pressure Location Lt brachial Position Sitting Pulse 64 Pulse Source Pulse Oximeter Intake Visit Reasons: 4 mth f/up Intake Note: pt its here for a 4 mth f/up/ pt states that he its fine. 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 Accompanied by: Self / Same As Patient Allergies Penicillins [PENICILLINS] Allergy (Severe, Verified 09/04/23 08:48) HIVES Medication List - Last Reconciled 09/15/23 by Timothy Jade MD aspirin (Lo-Dose Aspirin) 81 mg PO DAILY atorvastatin 40 mg PO DAILY furosemide 80mg in the AM and 40mg in the PM orally daily; 30 days lisinopril 40 mg PO DAILY metoprolol succinate ER 50 mg PO DAILY multivit,calc,szh-OF-T4-lycop 240 mcg-30 mcg- 300 mcg (One-A-Day Men's Complete) 1 tab PO DAILY warfarin 5 mg See Protocol PO DAILY HPI HPI Comments History of Present Illness Details Pleasant 83-year-old gentleman here for follow-up. He has known history of previous bypass surgery and mechanical aortic valve replacement. He was seen for new onset heart failure and was found to have cardiomyopathy with severely reduced ejection fraction. 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 He was sent for a Bi V AICD placement which happened in February 2019 at [facility] by Dr. Cruz. His repeat echocardiogram in May 2019 showing ejection fraction of 50-55%. It also showed some moderate aortic stenosis and concern for patient prosthesis mismatch. He has chronic right lower extremity edema due to a blood clot in the past. He has been doing well since then. He has no chest discomfort shortness of breath. Clinically not in heart failure. Taking medications regularly. Stable on follow-up. 07/01/22: On follow-up he is doing well. He is sayng he wakes up in the middle night and cannot go back to sleep for few hours. He is saying he does not wake up for shortness of breath or PND. Overall clinically stable. 12/23/22: He returns for follow-up. He has been taking medications regularly. His denying any chest discomfort or significant shortness of breath. No s ignificant orthopnea or PND. He has peripheral edema which is chronic. The right leg is worse than the left due to previous DVT. 04/28/23: He is here for f/u. BP is elev ated. He has been doing well. No dyspnea or CP. 09/15/23: He returns for follow-up. He w as seen in the office in June by our nurse practitioner. He was complaining of fatigue at that time. He had blood workup done which showed mildly elevated BNP level. He was referred for echocardiography which showed EF 60% with inferior inferolateral wall motion abnormality. Lasix was increased to 80 mg in the morning and 40 in the afternoon. He was only 80 mg once a day previously. He returns and he still has some fatigue. He said he started raking his lawn and has been feeling some barrels and taking them up hill. He is able to do somewhat more over the last week compared to before. He gets some shortness of breath going uphill. He feels tired easily. We discussed about sleep apnea previously because he is overweight. He is not interested in doing sleep study. [facility] Medical History Fatigue Current use of anticoagulant therapy Surgical History History of cardiac cath History of aortic valve replacement Family History Father No problems noted. Mother No problems noted. Social History Alcohol intake: current Alcohol intake frequency: a few times a month Alcohol type: beer Patient Tobacco Use Status: Former Tobacco user Quit Date: 2012 Years Smoked: 23 +/- Review of Systems Const Denies chills, Denies fatigue, Denies fever(s), Denies frequent falls, Denies weakness, Denies weight gain and Denies weight loss ENT Denies dizziness Card Denies chest pain, Denies leg edema, Denies lightheadedness, Denies palpitations, Denies dyspnea and Denies dyspnea on exertion Resp Denies cough, Denies dyspnea and Denies dyspnea on exertion GI Denies hematochezia Musc Denies abnormal gait, Denies muscle weakness, Denies numbness, Denies radiating pain into limb and Denies tingling Neuro Denies abnormal gait, Denies dizziness, Denies frequent falls, Denies numbness, Denies tingling and Denies weakness Endo Denies fatigue and Denies palpitations Physical Exam Vital Signs: Last Vital Signs Pulse 64 09/15/23 10:04 BP 120/60 09/15/23 10:04 BMI result Body Mass Index 36.1 GENERAL APPEARANCE: in no acute distress, well developed, well nourished. NECK/THYROID: no carotid bruit, no jugular venous distention. SKIN: warm and dry. HEART: no murmurs, regular rate and rhythm, mechanical 2nd heart sound. LUNGS: Clear to auscultation bilaterally. ABDOMEN: normal, bowel sounds present, soft, nontender, nondistended. EXTREMITIES: 1 to 2+ edema bilaterally right more than left. PERIPHERAL PULSES: equal. NEUROLOGIC: nonfocal, alert and oriented. Assessment & Plan Assessment & Plan (1) Fatigue: Code(s): R53.83 - Other fatigue (2) Essential hypertension: Code(s): I10 - Essential (primary) hypertension (3) Chronic diastolic CHF (congestive heart failure): Code(s): I50.32 - Chronic diastolic (congestive) heart failure (4) History of aortic valve replacement: Comment: Mechanical Code(s): Z95.2 - Presence of prosthetic heart valve Plan 83-year-old gentleman presenting for follow-up. He has background history of coronary artery bypass surgery and mechanical aortic valve replacement. 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 Recently has been complaining of some fatigue. Will check the echocardiogram and his ejection fraction is normal. He does have some wall motion abnormalities in inferior/inferolateral wall but he does not have any classic anginal symptoms currently. He is overweight and we discussed about sleep study but he does not want to pursue that. He had mild evidence of volume overload and his Lasix dose was increased from 80 mg in the morning to 80 mg in the morning and 40 in the afternoon. His overall volume status is good. He has chronic lower extremity edema which has not improved over the years and is stable. I have advised him to consider sleep study, as mentioned he has not interested in that currently. He should continue to exercise as much as he can. Same medications for now. Follow-up with us in few months. Thank you for allowing me to participate in the care of your patient. Please feel free to contact me if you have any questions. Coding Level of Care Code Est Pt Level 4 (78649) Diagnoses Fatigue R53.83 Essential hypertension I10 Chronic diastolic CHF (congestive heart failure) I50.32 History of aortic valve replacement Z95.2
[2023-09-15 10:04] VITALS: BP 120/60; PULSE 64; BMI 36.1
== END 2023-09-15 10:41 | disposition home or self-care (01) ==
PROVIDERS: PCP Internal Medicine; Visit Provider Internal Medicine Cardiovascular Disease
DX: R53.83 Other fatigue (principal); I10 Essential (primary) hypertension; I50.32 Chronic diastolic (congestive) heart failure; Z95.2 Presence of prosthetic heart valve
CPT/HCPCS: 99214

== ENCOUNTER → 2023-09-15 09:44 | Outpatient (BNVA) | payer MEDICARE, SELFPAY | PROVIDERS: PCP Internal Medicine; Visit Provider Internal Medicine Cardiovascular Disease | DX: I11.0 Hypertensive heart disease with heart failure (principal); I50.32 Chronic diastolic (congestive) heart failure; I42.9 Cardiomyopathy, unspecified; R53.83 Other fatigue; Z95.2 Presence of prosthetic heart valve | CPT/HCPCS: 99212 ==

== ENCOUNTER 2023-09-18 08:05 | Outpatient (AMB) | payer MEDICARE, SELFPAY ==
[2023-09-18 08:38] LABS: Prothrombin Time Whole Bld POC 21.9 sec (11.1-13.5); ~PT, ~INR - Anti Coag Clinic 1.8 (0.9-1.1)
--- NOTE | 2023-09-18 08:43 | MHC.OFFVISCO ---
Intake Intake Visit Reasons: Anticoagulation Allergies Penicillins [PENICILLINS] Allergy (Severe, Verified 09/18/23 08:28) HIVES Nursing Note INR: 1.8out of therapeutic range of 2-3 Medications and supplements reviewed: no changes No changes in health, diet, medications, or supplements, Denies any signs and symptoms of bleeding or bruising or clotting. Bleeding, bruising, clotting discussed Nutritional guidance given to avoid greens today and tomorrow and to have a serving of foods from the red list then to balance both Dose: usual dose of2.5mg daily F/U INR: 2 weeks Patient verbalizes understanding of instructions given Anti-Coag Initial Assessment Social Hx Patient Tobacco Use Status: Former Tobacco user Quit Date: 2012 alcohol intake: current Alcohol intake frequency: a few times a month Coding Level of Care Code Est Patient Level 1 Diagnoses Current use of anticoagulant therapy Z79.01 Assessment & Plan Assessment & Plan (1) Current use of anticoagulant therapy: Code(s): Z79.01 - director long term care (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
== END 2023-09-18 08:47 | disposition home or self-care (01) ==
LOC: HO.ACS 08:05
PROVIDERS: PCP Internal Medicine; Visit Provider Internal Medicine
DX: Z79.01 Long term (current) use of anticoagulants (principal)

== ENCOUNTER → 2023-09-18 08:05 | Outpatient (BNVA) | payer MEDICARE, SELFPAY | PROVIDERS: PCP Internal Medicine; Visit Provider Internal Medicine | DX: Z95.2 Presence of prosthetic heart valve (principal); Z79.01 Long term (current) use of anticoagulants; Z51.81 Encounter for therapeutic drug level monitoring | CPT/HCPCS: 85610; 99211 ==

== ENCOUNTER → 2023-09-19 23:59 | Outpatient (BNV) | payer MEDICARE, SELFPAY ==
--- NOTE | 2023-09-22 21:54 | A.OFFVIS_ITS ---
Intake Intake Visit Reasons: Remote HF monitoring- [facility] Allergies Penicillins [PENICILLINS] Allergy (Severe, Verified 09/18/23 08:28) HIVES [facility] Medical History Fatigue Current use of anticoagulant therapy Surgical History History of cardiac cath History of aortic valve replacement Family History Father No problems noted. Mother No problems noted. Social History Alcohol intake: current Alcohol intake frequency: a few times a month Alcohol type: beer Patient Tobacco Use Status: Former Tobacco user Quit Date: 2012 Years Smoked: 23 +/- Office Procedures Cardiac Device Check Cardiac Device Check Details: HF monitoring Stable thoracic impedance. [id number] Cardiac Device Interrogation, cardio physiologic monitor Procedure code (CPT) selection complete Assessment & Plan Assessment & Plan (1) Chronic diastolic CHF (congestive heart failure): Code(s): I50.32 - Chronic diastolic (congestive) heart failure Plan: Orders: Orders AMB Cardiac Device Follow-up 09/19/23 I48.0 - Paroxysmal atrial fibrillation Coding Level of Care Code Procedure Only Diagnoses Chronic diastolic CHF (congestive heart failure) I50.32 CPT Codes Cardiac Device Check - Cardiac Device 15: [id number] Cardiac Device Interrogation, cardio physiologic monitor ([id number])
== END ==
PROVIDERS: PCP Internal Medicine; Visit Provider Internal Medicine Cardiovascular Disease
DX: I50.32 Chronic diastolic (congestive) heart failure (principal); Z95.810 Presence of automatic (implantable) cardiac defibrillator
CPT/HCPCS: 93297

== ENCOUNTER → 2023-10-02 08:19 | Outpatient (BNVA) | payer MEDICARE, SELFPAY | PROVIDERS: PCP Internal Medicine; Visit Provider Internal Medicine | DX: Z95.2 Presence of prosthetic heart valve (principal); Z79.01 Long term (current) use of anticoagulants; Z51.81 Encounter for therapeutic drug level monitoring | CPT/HCPCS: 85610; 99211 ==

== ENCOUNTER 2023-10-16 08:12 | Outpatient (AMB) | payer MEDICARE, SELFPAY ==
[2023-10-16 08:39] LABS: Prothrombin Time Whole Bld POC 19.1 sec (11.1-13.5); ~PT, ~INR - Anti Coag Clinic 1.6 (0.9-1.1)
--- NOTE | 2023-10-16 08:47 | MHC.OFFVISCO ---
Intake Intake Visit Reasons: Anticoagulation Allergies Penicillins [PENICILLINS] Allergy (Severe, Verified 10/16/23 08:33) HIVES Medication List - Last Reconciled 10/16/23 by Therese Bass RN aspirin (Lo-Dose Aspirin) 81 mg PO DAILY atorvastatin 40 mg PO DAILY furosemide 80mg in the AM and 40mg in the PM orally daily; 30 days lisinopril 40 mg PO DAILY metoprolol succinate ER 50 mg PO DAILY multivit,calc,jwx-KU-Y5-lycop 240 mcg-30 mcg- 300 mcg (One-A-Day Men's Complete) 1 tab PO DAILY warfarin 5 mg See Protocol PO DAILY Nursing Note PT.BELIEVES THAT HE MAY HAVE MISSED A RECENT DOSE. NO CP,SOB,DIET/MED CHANGES,FALLS OR SX OF BLEEDING. 5MGM BOOST TODAY THEN RESUME USUAL DOSE AND FOLLOW-UP IN 2 WEEKS. NO GREENS 2-3 DAYS GOOD UNDERSTANDING OF DOSING INSTR. Anti-Coag Initial Assessment Social Hx Patient Tobacco Use Status: Former Tobacco user Quit Date: 2012 alcohol intake: current Alcohol intake frequency: a few times a month Coding Level of Care Code Est Patient Level 1 Diagnoses Current use of anticoagulant therapy Z79.01 Assessment & Plan Assessment & Plan (1) Current use of anticoagulant therapy: Code(s): Z79.01 - skilled nursing (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
== END 2023-10-16 08:51 | disposition home or self-care (01) ==
LOC: HO.ACS 08:12
PROVIDERS: PCP Internal Medicine; Visit Provider Internal Medicine
DX: Z79.01 Long term (current) use of anticoagulants (principal)

== ENCOUNTER → 2023-10-16 08:12 | Outpatient (BNVA) | payer MEDICARE, SELFPAY | PROVIDERS: PCP Internal Medicine; Visit Provider Internal Medicine | DX: Z95.2 Presence of prosthetic heart valve (principal); Z51.81 Encounter for therapeutic drug level monitoring; Z79.01 Long term (current) use of anticoagulants | CPT/HCPCS: 85610; 99211 ==

== ENCOUNTER 2023-10-30 08:12 | Outpatient (AMB) | payer MEDICARE, SELFPAY ==
[2023-10-30 08:18] LABS: Prothrombin Time Whole Bld POC 21.1 sec (11.1-13.5); ~PT, ~INR - Anti Coag Clinic 1.8 (0.9-1.1)
--- NOTE | 2023-10-30 08:24 | MHC.OFFVISCO ---
Intake Intake Visit Reasons: Anticoagulation Allergies Penicillins [PENICILLINS] Allergy (Severe, Verified 10/30/23 08:12) HIVES Medication List - Last Reconciled 10/30/23 by Destinee Pascal RN aspirin (Lo-Dose Aspirin) 81 mg PO DAILY atorvastatin 40 mg PO DAILY furosemide 80mg in the AM and 40mg in the PM orally daily; 30 days lisinopril 40 mg PO DAILY metoprolol succinate ER 50 mg PO DAILY multivit,calc,qdd-SO-C5-lycop 240 mcg-30 mcg- 300 mcg (One-A-Day Men's Complete) 1 tab PO DAILY warfarin 5 mg See Protocol PO DAILY Nursing Note INR 1.8 out of therapeutic range Medications and supplements reviewed Patient status: Pt well, no changes, has not been eating greens,states he has not been having ETOH Medications or supplements: no changes Diet: good Denies any signs and symptoms of bleeding or clotting or unusual bruising Bleeding, bruising, clotting discussed Nutritional guidance given: avoid greens x 2 days then resumus usual diet, have reds today Dose: increase 5mg x 1 day/ 2.5mg x 6 days F/U INR Date : 1 week ?? Patient verbalizing understanding of instructions given. Anti-Coag Initial Assessment Social Hx Patient Tobacco Use Status: Former Tobacco user Quit Date: 2012 alcohol intake: current Alcohol intake frequency: a few times a month Coding Level of Care Code Est Patient Level 1 Diagnoses Current use of anticoagulant therapy Z79.01 Assessment & Plan Assessment & Plan (1) Current use of anticoagulant therapy: Code(s): Z79.01 - intermediate (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
== END 2023-10-30 08:27 | disposition home or self-care (01) ==
LOC: HO.ACS 08:12
PROVIDERS: PCP Internal Medicine; Visit Provider Internal Medicine
DX: Z79.01 Long term (current) use of anticoagulants (principal)

== ENCOUNTER → 2023-10-30 08:12 | Outpatient (BNVA) | payer MEDICARE, SELFPAY | PROVIDERS: PCP Internal Medicine; Visit Provider Internal Medicine | DX: Z95.2 Presence of prosthetic heart valve (principal); Z51.81 Encounter for therapeutic drug level monitoring; Z79.01 Long term (current) use of anticoagulants | CPT/HCPCS: 85610; 99211 ==

== ENCOUNTER 2023-11-06 08:00 | Outpatient (AMB) | payer MEDICARE, SELFPAY ==
[2023-11-06 08:25] LABS: ~PT, ~INR - Anti Coag Clinic 2.5 (0.9-1.1)
--- NOTE | 2023-11-06 08:33 | MHC.OFFVISCO ---
Intake Intake Visit Reasons: Anticoagulation Allergies Penicillins [PENICILLINS] Allergy (Severe, Verified 11/06/23 08:21) HIVES Medication List - Last Reconciled 11/06/23 by Janet Deng RN aspirin (Lo-Dose Aspirin) 81 mg PO DAILY atorvastatin 40 mg PO DAILY furosemide 80mg in the AM and 40mg in the PM orally daily; 30 days lisinopril 40 mg PO DAILY metoprolol succinate ER 50 mg PO DAILY multivit,calc,obv-SV-M2-lycop 240 mcg-30 mcg- 300 mcg (One-A-Day Men's Complete) 1 tab PO DAILY warfarin 5 mg See Protocol PO DAILY Nursing Note INR: 2.5 in therapeutic range of 2-3 Medications and supplements reviewed: no changes No changes in health, diet, medications, or supplements, Denies any signs and symptoms of bleeding or bruising or clotting. Bleeding, bruising, clotting discussed Nutritional guidance given to continue to balance greens and reds Dose: 2.5mg X6 days and 5mg X1 day F/U INR: 2 weeks Patient verbalizes understanding of instructions given Anti-Coag Initial Assessment Social Hx Patient Tobacco Use Status: Former Tobacco user Quit Date: 2012 alcohol intake: current Alcohol intake frequency: a few times a month Coding Level of Care Code Est Patient Level 1 Diagnoses Current use of anticoagulant therapy Z79.01 Results AMB INR Fingerstick AMB INR Fingerstick 2.5 Last Edit by Janet Deng RN on 11/06/23 08:25 interface delay Assessment & Plan Assessment & Plan (1) Current use of anticoagulant therapy: Code(s): Z79.01 - 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
== END 2023-11-06 08:37 | disposition home or self-care (01) ==
LOC: HO.ACS 08:00
PROVIDERS: PCP Internal Medicine; Visit Provider Internal Medicine
DX: Z79.01 Long term (current) use of anticoagulants (principal)

== ENCOUNTER → 2023-11-06 08:00 | Outpatient (BNVA) | payer MEDICARE, SELFPAY | PROVIDERS: PCP Internal Medicine; Visit Provider Internal Medicine | DX: Z95.2 Presence of prosthetic heart valve (principal); Z79.01 Long term (current) use of anticoagulants; Z51.81 Encounter for therapeutic drug level monitoring | CPT/HCPCS: 85610; 99211 ==

== ENCOUNTER 2023-11-20 08:02 | Outpatient (AMB) | payer MEDICARE, SELFPAY ==
--- NOTE | 2023-11-20 08:16 | MHC.OFFVISCO ---
Intake Intake Visit Reasons: Anticoagulation Allergies Penicillins [PENICILLINS] Allergy (Severe, Verified 11/20/23 08:08) HIVES Medication List - Last Reconciled 11/20/23 by Destinee Pascal RN aspirin (Lo-Dose Aspirin) 81 mg PO DAILY atorvastatin 40 mg PO DAILY furosemide 80mg in the AM and 40mg in the PM orally daily; 30 days lisinopril 40 mg PO DAILY metoprolol succinate ER 50 mg PO DAILY multivit,calc,odi-MV-G6-lycop 240 mcg-30 mcg- 300 mcg (One-A-Day Men's Complete) 1 tab PO DAILY warfarin 5 mg See Protocol PO DAILY Nursing Note INR 3.4? out of therapeutic range Medications and supplements reviewed Patient status: WELL, NO CHANGES - MAY HAVE HAD NOT ENOUGH GREENS Medications or supplements: NO CHANGES Diet: GOOD Denies any signs and symptoms of bleeding or clotting or unusual bruising Bleeding, bruising, clotting discussed Nutritional guidance given: GREENS TODAY Dose: 5MG X 1 DAYS/ 2.5MG X6DAYS F/U INR Date : 2 WEEKS ?? Patient verbalizing understanding of instructions given. Anti-Coag Initial Assessment Social Hx Patient Tobacco Use Status: Former Tobacco user alcohol intake: current Alcohol intake frequency: a few times a month Coding Level of Care Code Est Patient Level 1 Diagnoses Current use of anticoagulant therapy Z79.01 Results AMB INR Fingerstick AMB INR Fingerstick 3.4 Last Edit by Destinee Pascal RN on 11/20/23 08:15 MANUAL ENTRY Assessment & Plan Assessment & Plan (1) Current use of anticoagulant therapy: Code(s): Z79.01 - rodent exterminator (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
[2023-11-20 09:10] LABS: Prothrombin Time Whole Bld POC 40.3 sec (11.1-13.5); ~PT, ~INR - Anti Coag Clinic 3.4 (0.9-1.1)
== END 2023-11-20 08:19 | disposition home or self-care (01) ==
LOC: HO.ACS 08:02
PROVIDERS: PCP Internal Medicine; Visit Provider Internal Medicine
DX: Z79.01 Long term (current) use of anticoagulants (principal)

== ENCOUNTER → 2023-11-20 08:02 | Outpatient (BNVA) | payer MEDICARE, SELFPAY | PROVIDERS: PCP Internal Medicine; Visit Provider Internal Medicine | DX: Z95.2 Presence of prosthetic heart valve (principal); Z79.01 Long term (current) use of anticoagulants; Z51.81 Encounter for therapeutic drug level monitoring | CPT/HCPCS: 85610; 99211 ==

== ENCOUNTER → 2023-11-24 23:59 | Outpatient (BNV) | payer MEDICARE, SELFPAY ==
--- NOTE | 2023-12-14 20:03 | MHC.OFFVIS ---
Intake Visit Reasons: Remote ICD check- [facility] Allergies Penicillins [PENICILLINS] Allergy (Severe, Verified 12/04/23 08:24) [facility]ES [facility] Medical History Fatigue Current use of anticoagulant therapy Surgical History History of cardiac cath History of aortic valve replacement Family History Father No problems noted. Mother No problems noted. Social History Alcohol intake: current Alcohol intake frequency: a few times a month Alcohol type: beer Patient Tobacco Use Status: Former Tobacco user Years Smoked: 23 +/- Office Procedures Cardiac Device Check Cardiac Device Check Details: HF monitoring 99% ORE DIGGER Stable thoracic impedance. [id number] Cardiac Device Interrogation, cardio physiologic monitor Procedure code (CPT) selection complete Assessment & Plan Assessment & Plan (1) Chronic diastolic CHF (congestive heart failure): Code(s): I50.32 - Chronic diastolic (congestive) heart failure Category: Medical Plan: Coding Level of Care Code Procedure Only Diagnoses Chronic diastolic CHF (congestive heart failure) I50.32 CPT Codes Cardiac Device Check - Cardiac Device 15: [id number] Cardiac Device Interrogation, cardio physiologic monitor ([id number])
== END ==
PROVIDERS: PCP Internal Medicine; Visit Provider Internal Medicine Cardiovascular Disease
DX: I50.32 Chronic diastolic (congestive) heart failure (principal); Z95.810 Presence of automatic (implantable) cardiac defibrillator
CPT/HCPCS: 93295

== ENCOUNTER 2023-12-04 08:10 | Outpatient (AMB) | payer MEDICARE, SELFPAY ==
[2023-12-04 08:29] LABS: Prothrombin Time Whole Bld POC 24.8 sec (11.1-13.5); ~PT, ~INR - Anti Coag Clinic 2.1 (0.9-1.1)
--- NOTE | 2023-12-04 08:32 | MHC.OFFVISCO ---
Intake Intake Visit Reasons: Anticoagulation Allergies Penicillins [PENICILLINS] Allergy (Severe, Verified 12/04/23 08:24) HIVES Medication List - Last Reconciled 12/04/23 by Janet Scruggs RN aspirin (Lo-Dose Aspirin) 81 mg PO DAILY atorvastatin 40 mg PO DAILY furosemide 80mg in the AM and 40mg in the PM orally daily; 30 days lisinopril 40 mg PO DAILY metoprolol succinate ER 50 mg PO DAILY multivit,calc,xps-BN-K7-lycop 240 mcg-30 mcg- 300 mcg (One-A-Day Men's Complete) 1 tab PO DAILY warfarin 5 mg See Protocol PO DAILY Nursing Note Amb to [facility] feeling well, in good spirits Medications and supplements reviewed No changes in health, diet, medications, or supplements, Denies any signs and symptoms of bleeding, bruising, or clotting. INR 2.1 in therapeutic range Dose: continue usual 5mg x 1 day and 2.5mg x 6 days balance greens and reds in diet F/U INR: 2 weeks Patient verbalizes understanding of instructions given Anti-Coag Initial Assessment Social Hx Patient Tobacco Use Status: Former Tobacco user alcohol intake: current Alcohol intake frequency: a few times a month Coding Level of Care Code Est Patient Level 1 Diagnoses Current use of anticoagulant therapy Z79.01 Time Spent (min) 15 Assessment & Plan Assessment & Plan (1) Current use of anticoagulant therapy: Code(s): Z79.01 - detention (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
== END 2023-12-04 08:36 | disposition home or self-care (01) ==
LOC: HO.ACS 08:10
PROVIDERS: PCP Internal Medicine; Visit Provider Internal Medicine
DX: Z79.01 Long term (current) use of anticoagulants (principal)

== ENCOUNTER → 2023-12-04 08:10 | Outpatient (BNVA) | payer MEDICARE, SELFPAY | PROVIDERS: PCP Internal Medicine; Visit Provider Internal Medicine | DX: Z95.2 Presence of prosthetic heart valve (principal); Z79.01 Long term (current) use of anticoagulants; Z51.81 Encounter for therapeutic drug level monitoring | CPT/HCPCS: 85610; 99211 ==

== ENCOUNTER 2023-12-23 08:02 | Outpatient (AMB) | payer MEDICARE, SELFPAY ==
[2023-12-23 08:21] LABS: Prothrombin Time Whole Bld POC 29.1 sec (11.1-13.5); ~PT, ~INR - Anti Coag Clinic 2.4 (0.9-1.1)
--- NOTE | 2023-12-23 08:26 | MHC.OFFVISCO ---
Intake Intake Visit Reasons: Anticoagulation Allergies Penicillins [PENICILLINS] Allergy (Severe, Verified 12/23/23 08:16) HIVES Medication List - Last Reconciled 12/23/23 by Janet Deng RN aspirin (Lo-Dose Aspirin) 81 mg PO DAILY atorvastatin 40 mg PO DAILY furosemide 80mg in the AM and 40mg in the PM orally daily; 30 days lisinopril 40 mg PO DAILY metoprolol succinate ER 50 mg PO DAILY multivit,calc,hbp-OS-N0-lycop 240 mcg-30 mcg- 300 mcg (One-A-Day Men's Complete) 1 tab PO DAILY warfarin 5 mg See Protocol PO DAILY Nursing Note INR: 2.4 in therapeutic range of 2-3 Medications and supplements reviewed No changes in health, diet, medications, or supplements, States he feels well. Denies any signs and symptoms of bleeding or bruising or clotting. Bleeding, bruising, clotting discussed Nutritional guidance given Dose: 2.5mg X 6 days and 5mg X1 day F/U INR: 01/08/24 Patient verbalizes understanding of instructions given Anti-Coag Initial Assessment Social Hx Patient Tobacco Use Status: Former Tobacco user alcohol intake: current Alcohol intake frequency: a few times a month Coding Level of Care Code Est Patient Level 1 Diagnoses Current use of anticoagulant therapy Z79.01 Results AMB INR Fingerstick AMB INR Fingerstick 2.4 Last Edit by Janet Deng RN on 12/23/23 08:24 interface delay Assessment & Plan Assessment & Plan (1) Current use of anticoagulant therapy: Code(s): Z79.01 - 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
== END 2023-12-23 08:32 | disposition home or self-care (01) ==
LOC: HO.ACS 08:02
PROVIDERS: PCP Internal Medicine; Visit Provider Internal Medicine
DX: Z79.01 Long term (current) use of anticoagulants (principal)

== ENCOUNTER → 2023-12-23 08:02 | Outpatient (BNVA) | payer MEDICARE, SELFPAY | PROVIDERS: PCP Internal Medicine; Visit Provider Internal Medicine | DX: Z95.2 Presence of prosthetic heart valve (principal); Z79.01 Long term (current) use of anticoagulants; Z51.81 Encounter for therapeutic drug level monitoring | CPT/HCPCS: 85610; 99211 ==

== ENCOUNTER 2024-01-08 08:02 | Outpatient (AMB) | payer MEDICARE, SELFPAY ==
[2024-01-08 08:09] LABS: Prothrombin Time Whole Bld POC 24.2 sec (11.1-13.5)
--- NOTE | 2024-01-08 08:15 | MHC.OFFVISCO ---
Intake Intake Visit Reasons: Anticoagulation Allergies Penicillins [PENICILLINS] Allergy (Severe, Verified 01/08/24 08:03) HIVES Medication List - Last Reconciled 01/08/24 by Janet Deng RN aspirin (Lo-Dose Aspirin) 81 mg PO DAILY atorvastatin 40 mg PO DAILY furosemide 80mg in the AM and 40mg in the PM orally daily; 30 days lisinopril 40 mg PO DAILY metoprolol succinate ER 50 mg PO DAILY multivit,calc,ccc-DJ-L4-lycop 240 mcg-30 mcg- 300 mcg (One-A-Day Men's Complete) 1 tab PO DAILY warfarin 5 mg See Protocol PO DAILY Nursing Note INR: 2.0 in therapeutic range of 2-3 Medications and supplements reviewed No changes in health, diet, medications, or supplements, Denies any signs and symptoms of bleeding or bruising or clotting. Bleeding, bruising, clotting discussed Nutritional guidance given to avoid greens and have a serving of food from the list that raises the INR. Pt states he will have watermelon and tomatoes today Dose: 2.5mg X 6 days and 5mg X 1 day F/U INR: 2 weeks Patient verbalizes understanding of instructions given Anti-Coag Initial Assessment Social Hx Patient Tobacco Use Status: Former Tobacco user alcohol intake: current Alcohol intake frequency: a few times a month Coding Level of Care Code Est Patient Level 1 Diagnoses Current use of anticoagulant therapy Z79.01 Assessment & Plan Assessment & Plan (1) Current use of anticoagulant therapy: Code(s): Z79.01 - snf (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
== END 2024-01-08 08:19 | disposition home or self-care (01) ==
LOC: HO.ACS 08:02
PROVIDERS: PCP Internal Medicine; Visit Provider Internal Medicine
DX: Z79.01 Long term (current) use of anticoagulants (principal)

== ENCOUNTER → 2024-01-08 08:02 | Outpatient (BNVA) | payer MEDICARE, SELFPAY | PROVIDERS: PCP Internal Medicine; Visit Provider Internal Medicine | DX: Z95.2 Presence of prosthetic heart valve (principal); Z79.01 Long term (current) use of anticoagulants; Z51.81 Encounter for therapeutic drug level monitoring | CPT/HCPCS: 85610; 99211 ==

== ENCOUNTER 2024-01-22 07:59 | Outpatient (AMB) | payer MEDICARE, SELFPAY ==
[2024-01-22 08:13] LABS: Prothrombin Time Whole Bld POC 28.7 sec (11.1-13.5); ~PT, ~INR - Anti Coag Clinic 2.4 (0.9-1.1)
--- NOTE | 2024-01-22 08:15 | MHC.OFFVISCO ---
Intake Intake Visit Reasons: Anticoagulation Allergies Penicillins [PENICILLINS] Allergy (Severe, Verified 01/22/24 08:06) HIVES Medication List - Last Reconciled 01/22/24 by Janet Deng, RN aspirin (Lo-Dose Aspirin) 81 mg PO DAILY atorvastatin 40 mg PO DAILY furosemide 80mg in the AM and 40mg in the PM orally daily; 30 days lisinopril 40 mg PO DAILY metoprolol succinate ER 50 mg PO DAILY multivit,calc,ykm-BD-G3-lycop 240 mcg-30 mcg- 300 mcg (One-A-Day Men's Complete) 1 tab PO DAILY warfarin 5 mg See Protocol PO DAILY Nursing Note INR: 2.4 in therapeutic range of 2-3 Medications and supplements reviewed: no changes No changes in health, diet, medications, or supplements, Denies any signs and symptoms of bleeding or bruising or clotting. Bleeding, bruising, clotting discussed Nutritional guidance given to continue to balance reds and greens Dose: 2.5mg X 6 days and 5mg X 1 day (FRI) F/U INR: 2 weeks Patient verbalizes understanding of instructions given Anti-Coag Initial Assessment Social Hx Patient Tobacco Use Status: Former Tobacco user alcohol intake: current Alcohol intake frequency: a few times a month Coding Level of Care Code Est Patient Level 1 Diagnoses Current use of anticoagulant therapy Z79.01 Assessment & Plan Assessment & Plan (1) Current use of anticoagulant therapy: Code(s): Z79.01 - prison (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
== END 2024-01-22 08:21 | disposition home or self-care (01) ==
LOC: HO.ACS 07:59
PROVIDERS: PCP Internal Medicine; Visit Provider Internal Medicine
DX: Z79.01 Long term (current) use of anticoagulants (principal)

== ENCOUNTER → 2024-01-22 07:59 | Outpatient (BNVA) | payer MEDICARE, SELFPAY | PROVIDERS: PCP Internal Medicine; Visit Provider Internal Medicine | DX: Z95.2 Presence of prosthetic heart valve (principal); Z79.01 Long term (current) use of anticoagulants; Z51.81 Encounter for therapeutic drug level monitoring | CPT/HCPCS: 85610; 99211 ==

== ENCOUNTER 2024-02-06 07:57 | Outpatient (AMB) | payer MEDICARE, SELFPAY ==
[2024-02-06 08:06] LABS: Prothrombin Time Whole Bld POC 21.5 sec (11.1-13.5); ~PT, ~INR - Anti Coag Clinic 1.8 (0.9-1.1)
--- NOTE | 2024-02-06 08:13 | MHC.OFFVISCO ---
Intake Intake Visit Reasons: Anticoagulation Allergies Penicillins [PENICILLINS] Allergy (Severe, Verified 02/06/24 07:58) HIVES Medication List - Last Reconciled 02/06/24 by Destinee Pascal RN aspirin (Lo-Dose Aspirin) 81 mg PO DAILY atorvastatin 40 mg PO DAILY furosemide 80mg in the AM and 40mg in the PM orally daily; 30 days lisinopril 40 mg PO DAILY metoprolol succinate ER 50 mg PO DAILY multivit,calc,ala-HW-J5-lycop 240 mcg-30 mcg- 300 mcg (One-A-Day Men's Complete) 1 tab PO DAILY warfarin 5 mg See Protocol PO DAILY Nursing Note INR 1.8 out of therapeutic range Medications and supplements reviewed Patient status: Has not had usual foods that raise the INR Medications or supplements: no changes Diet: good Denies any signs and symptoms of bleeding or clotting or unusual bruising Bleeding, bruising, clotting discussed Nutritional guidance given: have foods to help raise the INr today - avoid greens today and tomorrow Dose: booster dose 5mg today ( 5mg x 2 days this week) then resuem 5mg x 1 day/ 2.5mg x 6 days next week F/U INR Date : 2 weeks?? Patient verbalizing understanding of instructions given. Anti-Coag Initial Assessment Social Hx Patient Tobacco Use Status: Former Tobacco user alcohol intake: current Alcohol intake frequency: a few times a month Questionnaires HAS-BLED Does the patient had uncontrolled Hypertension?: No Does the patient have renal disease?: No Does the patient have liver disease?: No Does the patient have a history of stroke?: No Has the patient had major bleeding or predisposition to bleeding?: No Does the patient have labile INRs?: Yes Is the patient over 65 years of age?: Yes Is the patient on medications that gives them a predisposition to bleeding?: Yes Does the patient use alcohol?: Yes HAS-BLED Score: 4 CHADSVASC Age: 75 or over Gender: Male Does the patient have a history of CHF?: Yes Does the patient have a history of Hypertension?: Yes Does the patient have a history of Stroke/TIA/Thromboembolism?: Yes Does the patient have a history of Vascular Disease (prior CO, PAD or aortic plaque)?: Yes Does the patient have a history of Diabetes?: No CHADS VACS Score: 7 Zelda Prediction Score Rsk VTE Active Cancer: No Previous VTE, excluding superficial vein thrombosis: Yes Reduced mobility: No Already known Thrombophilic Condition: No With-in last month Trauma and/or Surgery: No Elderly 70 year or older: Yes Heart and/or Respiratory Failure: Yes Acute Myocardial infarction and/or Ischemic Stroke: No Acute Infection and/or Rheumatologic Disorder: No Obesity (BMI 30 or greater): Yes Ongoing Hormonal Treatment: No Score: 6 Zelda Score less than 4; Low Risk of VTE Zelda Score 4 or greater; High Risk of VTE Coding Level of Care Code Est Patient Level 1 Diagnoses Current use of anticoagulant therapy Z79.01 Results AMB INR Fingerstick AMB INR Fingerstick 1.8 Last Edit by Destinee Pascal RN on 02/06/24 08:07 MANUAL ENTRY Assessment & Plan Assessment & Plan (1) Current use of anticoagulant therapy: Code(s): Z79.01 - halfway (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
== END 2024-02-06 08:14 | disposition home or self-care (01) ==
LOC: HO.ACS 07:57
PROVIDERS: PCP Internal Medicine; Visit Provider Internal Medicine
DX: Z79.01 Long term (current) use of anticoagulants (principal)

== ENCOUNTER → 2024-02-06 07:57 | Outpatient (BNVA) | payer MEDICARE, SELFPAY | PROVIDERS: PCP Internal Medicine; Visit Provider Internal Medicine | DX: Z95.2 Presence of prosthetic heart valve (principal); Z79.01 Long term (current) use of anticoagulants; Z51.81 Encounter for therapeutic drug level monitoring | CPT/HCPCS: 85610; 99211 ==

== ENCOUNTER 2024-02-19 08:05 | Outpatient (AMB) | payer MEDICARE, SELFPAY ==
[2024-02-19 08:30] LABS: Prothrombin Time Whole Bld POC 21.1 sec (11.1-13.5); ~PT, ~INR - Anti Coag Clinic 1.8 (0.9-1.1)
--- NOTE | 2024-02-19 08:37 | MHC.OFFVISCO ---
Intake Intake Visit Reasons: Anticoagulation Allergies Penicillins [PENICILLINS] Allergy (Severe, Verified 02/19/24 08:23) HIVES Medication List - Last Reconciled 02/19/24 by Destinee Pascal RN aspirin (Lo-Dose Aspirin) 81 mg PO DAILY atorvastatin 40 mg PO DAILY furosemide 80mg in the AM and 40mg in the PM orally daily; 30 days lisinopril 40 mg PO DAILY metoprolol succinate ER 50 mg PO DAILY multivit,calc,ltl-LD-V3-lycop 240 mcg-30 mcg- 300 mcg (One-A-Day Men's Complete) 1 tab PO DAILY warfarin 5 mg See Protocol PO DAILY Nursing Note INR: 1.8 OUT therapeutic range X 2 VISITS Medications and supplements reviewed No changes in health, diet, medications, or supplements, Denies any signs and symptoms of bleeding or bruising or clotting. Bleeding, bruising, clotting discussed Nutritional guidance given - REVIEW FOOD LIST - GAVE EXAMPLES OF DOSING PAPER OF WHICH FOODS CAN HELP Dose: 5MG X 2 DAYS THIS WEEK THEN RESUME USUAL DOSE: 5MG X 1 DAY/ 2.5MG X 6 DAYS F/U INR: 1 WEEK Patient verbalizes understanding of instructions given Anti-Coag Initial Assessment Social Hx Patient Tobacco Use Status: Former Tobacco user alcohol intake: current Alcohol intake frequency: a few times a month Coding Level of Care Code Est Patient Level 1 Diagnoses Current use of anticoagulant therapy Z79.01 Results AMB INR Fingerstick AMB INR Fingerstick 1.8 Last Edit by Destinee Pascal RN on 02/19/24 08:32 MANUAL ENTRY Assessment & Plan Assessment & Plan (1) Current use of anticoagulant therapy: Code(s): Z79.01 - assisted (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
== END 2024-02-19 08:39 | disposition home or self-care (01) ==
LOC: HO.ACS 08:05
PROVIDERS: PCP Internal Medicine; Visit Provider Internal Medicine
DX: Z79.01 Long term (current) use of anticoagulants (principal)

== ENCOUNTER → 2024-02-19 08:05 | Outpatient (BNVA) | payer MEDICARE, SELFPAY | PROVIDERS: PCP Internal Medicine; Visit Provider Internal Medicine | DX: Z95.2 Presence of prosthetic heart valve (principal); Z79.01 Long term (current) use of anticoagulants; Z51.81 Encounter for therapeutic drug level monitoring | CPT/HCPCS: 85610; 99211 ==

== ENCOUNTER 2024-02-20 06:20 | Outpatient (REF) | payer MEDICARE, SELFPAY ==
[2024-02-20 06:33] LABS: MANUAL DIFF FLAG NO
[2024-02-20 07:13] LABS: Basophils Percent Auto 0.4 % (0-2); Eosinophils Absolute Auto 0.2 X10*3/uL (0.0-0.4); Eosinophils Percent Auto 2.7 % (0-4); Hemoglobin 13.8 g/dl (14.0-18.0); Imm Gran Abs Auto 0.01 X10*3/uL (0.00-0.03); Imm Gran Pct Auto 0.1 % (0.0-0.4); Lymphocytes Absolute Auto 1.9 X10*3/uL (1.2-4.9); Lymphocytes Percent Auto 27.2 % (20-40); Mean Corpuscular HGB Conc 32.9 g/dl (31.0-36.0); Mean Corpuscular Hemoglobin 31.7 pg (27.0-33.0); Mean Corpuscular Volume 96.3 fL (80.0-98.0); Mean Platelet Volume 10.2 fL (9.4-12.4); Monocytes Absolute Auto 0.7 X10*3/uL (0.1-1.2); Monocytes Percent Auto 10.3 % (2-11); Neutrophils Absolute Auto 4.1 x10*3/uL (2.0-8.3); Neutrophils Percent Auto 59.3 % (45-73); Platelet Count 149 X10*3/uL (160-400); Red Blood Count 4.36 X10*6/uL (4.60-5.80); Red Cell Distribution Width 13.5 % (11.0-16.0); White Blood Count 6.9 X10*3/uL (4.8-10.8)
[2024-02-20 07:34] LABS: B Type Natriuretic Peptide 101 pg/mL (<100)
[2024-02-20 07:49] LABS: Alanine Aminotransferase 19 U/L (0-40); Albumin Level 3.7 g/dL (3.5-5.0); Alkaline Phosphatase 65 U/L (39-117); Anion Gap 10 (12-20); Aspartate Amino Transferase 33 U/L (5-37); Bilirubin Total 0.9 mg/dL (0.0-1.0); Blood Urea Nitrogen 19 mg/dL (9-16); Calcium 9.9 mg/dL (8.4-10.2); Carbon Dioxide 31 mmol/L (22-29); Chloride 104 mmol/L (96-108); Cholesterol 127 mg/dL (<200); Estimated Glomerular Filt Rate 55; Glucose Fasting 97 mg/dL (60-99); HDL Cholesterol 36 mg/dL (>40); LDL Cholesterol Calculated 74 mg/dL (<100); Potassium 3.9 mmol/L (3.3-5.1); Sodium 141 mmol/L (135-145); Total Protein 7.5 g/dL (6.5-8.0); Triglycerides 88 mg/dL (<150)
[2024-02-20 08:05] LABS: Thyroid Stimulating Hormone 2.86 uIU/mL (0.32-4.0)
== END 2024-02-20 06:21 | disposition home or self-care (01) ==
LOC: HO.LAB 06:20
PROVIDERS: PCP Internal Medicine; Visit Provider Internal Medicine
DX: I50.22 Chronic systolic (congestive) heart failure (principal); I11.0 Hypertensive heart disease with heart failure; E78.5 Hyperlipidemia, unspecified; I25.10 Atherosclerotic heart disease of native coronary artery without angina pectoris; Z95.2 Presence of prosthetic heart valve
CPT/HCPCS: 36415; 80053; 80061; 83880; 84443; 85025

== ENCOUNTER → 2024-02-23 23:59 | Outpatient (BNV) | payer MEDICARE, SELFPAY ==
--- NOTE | 2024-03-12 18:52 | A.OFFVIS_ITS ---
Intake Visit Reasons: Remote ICD check- [facility] Allergies Penicillins [PENICILLINS] Allergy (Severe, Verified 03/04/24 08:04) HIVES [facility] Medical History Fatigue Current use of anticoagulant therapy Surgical History History of cardiac cath History of aortic valve replacement Family History Father No problems noted. Mother No problems noted. 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 [id number] Cardiac Device Check, multi lead implantable defibrillator Procedure code (CPT) selection complete Assessment & Plan Assessment & Plan (1) ICD (implantable cardioverter-defibrillator) in place: Code(s): Z95.810 - Presence of automatic (implantable) cardiac defibrillator Category: Medical Plan Coding Level of Care Code Procedure Only Diagnoses ICD (implantable cardioverter-defibrillator) in place Z95.810 CPT Codes Cardiac Device Check - Cardiac Device 6: [id number] Cardiac Device Check, multi lead implantable defibrillator ([id number])
== END ==
PROVIDERS: PCP Internal Medicine; Visit Provider Internal Medicine Cardiovascular Disease
DX: Z45.02 Encounter for adjustment and management of automatic implantable cardiac defibrillator (principal)
CPT/HCPCS: 93295

== ENCOUNTER 2024-02-26 08:03 | Outpatient (AMB) | payer MEDICARE, SELFPAY ==
--- NOTE | 2024-02-26 08:24 | MHC.OFFVISCO ---
Intake Intake Visit Reasons: Anticoagulation Allergies Penicillins [PENICILLINS] Allergy (Severe, Verified 02/26/24 08:17) HIVES Medication List - Last Reconciled 02/26/24 by Destinee Pascal RN aspirin (Lo-Dose Aspirin) 81 mg PO DAILY atorvastatin 40 mg PO DAILY furosemide 80mg in the AM and 40mg in the PM orally daily; 30 days lisinopril 40 mg PO DAILY metoprolol succinate ER 50 mg PO DAILY multivit,calc,jmt-IE-N5-lycop 240 mcg-30 mcg- 300 mcg (One-A-Day Men's Complete) 1 tab PO DAILY warfarin 5 mg See Protocol PO DAILY Nursing Note INR: 2.4 in therapeutic range Medications and supplements reviewed No changes in health, diet, medications, or supplements, Denies any signs and symptoms of bleeding or bruising or clotting. Bleeding, bruising, clotting discussed Nutritional guidance given - KEEP UP THE FOODS THAT HELP KEEP THE KEEP THE INR UP Dose: 5MG X 1 DAY/ 2.5MG X 6 DAYS F/U INR: 1 WEEK- IF STABLE GO 2 WEEKS Patient verbalizes understanding of instructions given Anti-Coag Initial Assessment Social Hx Patient Tobacco Use Status: Former Tobacco user alcohol intake: current Alcohol intake frequency: a few times a month Coding Level of Care Code Est Patient Level 1 Diagnoses Current use of anticoagulant therapy Z79.01 Results AMB INR Fingerstick AMB INR Fingerstick 2.4 Last Edit by Destinee Pascal RN on 02/26/24 08:26 MANUAL ENTRY Assessment & Plan Assessment & Plan (1) Current use of anticoagulant therapy: Code(s): Z79.01 - retirement (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
[2024-02-26 08:25] LABS: Prothrombin Time Whole Bld POC 28.6 sec (11.1-13.5); ~PT, ~INR - Anti Coag Clinic 2.4 (0.9-1.1)
== END 2024-02-26 08:34 | disposition home or self-care (01) ==
LOC: HO.ACS 08:03
PROVIDERS: PCP Internal Medicine; Visit Provider Internal Medicine
DX: Z79.01 Long term (current) use of anticoagulants (principal)

== ENCOUNTER → 2024-02-26 08:03 | Outpatient (BNVA) | payer MEDICARE, SELFPAY | PROVIDERS: PCP Internal Medicine; Visit Provider Internal Medicine | DX: Z95.2 Presence of prosthetic heart valve (principal); Z79.01 Long term (current) use of anticoagulants; Z51.81 Encounter for therapeutic drug level monitoring | CPT/HCPCS: 85610; 99211 ==

== ENCOUNTER → 2024-03-02 23:59 | Outpatient (BNV) | payer MEDICARE, SELFPAY ==
--- NOTE | 2024-03-12 18:50 | A.OFFVIS_ITS ---
Intake Visit Reasons: Remote HF monitoring- [facility] Allergies Penicillins [PENICILLINS] Allergy (Severe, Verified 03/04/24 08:04) HIVES [facility] Medical History Fatigue Current use of anticoagulant therapy Surgical History History of cardiac cath History of aortic valve replacement Family History Father No problems noted. Mother No problems noted. Social History Alcohol intake: current Alcohol intake frequency: a few times a month Alcohol type: beer Patient Tobacco Use Status: Former Tobacco user Years Smoked: 23 +/- Office Procedures Cardiac Device Check Cardiac Device Check Details: HF monitoring Stable thoracic impedance. [id number] Cardiac Device Interrogation, cardio physiologic monitor Procedure code (CPT) selection complete Assessment & Plan Assessment & Plan (1) Chronic diastolic CHF (congestive heart failure): Code(s): I50.32 - Chronic diastolic (congestive) heart failure Category: Medical Plan: Coding Level of Care Code Procedure Only Diagnoses Chronic diastolic CHF (congestive heart failure) I50.32 CPT Codes Cardiac Device Check - Cardiac Device 15: [id number] Cardiac Device Interrogation, cardio physiologic monitor ([id number])
== END ==
PROVIDERS: PCP Internal Medicine; Visit Provider Internal Medicine Cardiovascular Disease
DX: I50.32 Chronic diastolic (congestive) heart failure (principal); Z95.818 Presence of other cardiac implants and grafts
CPT/HCPCS: 93297

== ENCOUNTER 2024-03-04 08:01 | Outpatient (AMB) | payer MEDICARE, SELFPAY ==
--- NOTE | 2024-03-04 08:14 | MHC.OFFVISCO ---
Intake Intake Visit Reasons: Anticoagulation Allergies Penicillins [PENICILLINS] Allergy (Severe, Verified 03/04/24 08:04) HIVES Medication List - Last Reconciled 03/04/24 by Janet Deng RN aspirin (Lo-Dose Aspirin) 81 mg PO DAILY atorvastatin 40 mg PO DAILY furosemide 80mg in the AM and 40mg in the PM orally daily; 30 days lisinopril 40 mg PO DAILY metoprolol succinate ER 50 mg PO DAILY multivit,calc,ick-RG-V9-lycop 240 mcg-30 mcg- 300 mcg (One-A-Day Men's Complete) 1 tab PO DAILY warfarin 5 mg See Protocol PO DAILY Nursing Note INR: 2.5 in therapeutic range of 2-3 Medications and supplements reviewed No changes in health, diet, medications, or supplements, Denies any signs and symptoms of bleeding or bruising or clotting. Bleeding, bruising, clotting discussed Nutritional guidance given Dose: 2.5mg X 6 days and 5mg X 1 day F/U INR: 2 weeks Patient verbalizes understanding of instructions given Anti-Coag Initial Assessment Social Hx Patient Tobacco Use Status: Former Tobacco user alcohol intake: current Alcohol intake frequency: a few times a month Coding Level of Care Code Est Patient Level 1 Diagnoses Current use of anticoagulant therapy Z79.01 Results AMB INR Fingerstick AMB INR Fingerstick 2.5 Last Edit by Janet Deng RN on 03/04/24 08:11 interface delay Assessment & Plan Assessment & Plan (1) Current use of anticoagulant therapy: Code(s): Z79.01 - penitentiary (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
[2024-03-04 08:16] LABS: Prothrombin Time Whole Bld POC 29.8 sec (11.1-13.5); ~PT, ~INR - Anti Coag Clinic 2.5 (0.9-1.1)
== END 2024-03-04 08:15 | disposition home or self-care (01) ==
LOC: HO.ACS 08:01
PROVIDERS: PCP Internal Medicine; Visit Provider Internal Medicine
DX: Z79.01 Long term (current) use of anticoagulants (principal)

== ENCOUNTER → 2024-03-04 08:01 | Outpatient (BNVA) | payer MEDICARE, SELFPAY | PROVIDERS: PCP Internal Medicine; Visit Provider Internal Medicine | DX: Z95.2 Presence of prosthetic heart valve (principal); Z79.01 Long term (current) use of anticoagulants; Z51.81 Encounter for therapeutic drug level monitoring | CPT/HCPCS: 85610; 99211 ==

== ENCOUNTER 2024-03-18 08:12 | Outpatient (AMB) | payer MEDICARE, SELFPAY ==
[2024-03-18 08:21] LABS: Prothrombin Time Whole Bld POC 27.6 sec (11.1-13.5); ~PT, ~INR - Anti Coag Clinic 2.3 (0.9-1.1)
--- NOTE | 2024-03-18 08:26 | MHC.OFFVISCO ---
Intake Intake Visit Reasons: Anticoagulation Allergies Penicillins [PENICILLINS] Allergy (Severe, Verified 03/18/24 08:21) HIVES Medication List - Last Reconciled 03/18/24 by Destinee Pascal RN aspirin (Lo-Dose Aspirin) 81 mg PO DAILY atorvastatin 40 mg PO DAILY furosemide 80mg in the AM and 40mg in the PM orally daily; 30 days lisinopril 40 mg PO DAILY metoprolol succinate ER 50 mg PO DAILY multivit,calc,uzr-FJ-U4-lycop 240 mcg-30 mcg- 300 mcg (One-A-Day Men's Complete) 1 tab PO DAILY warfarin 5 mg See Protocol PO DAILY Nursing Note INR: 2.3 in therapeutic range Medications and supplements reviewed No changes in health, diet, medications, or supplements, Denies any signs and symptoms of bleeding or bruising or clotting. Bleeding, bruising, clotting discussed Nutritional guidance given Dose: 5MG X 1 DAY/ 2.5MG X 6 DAYS F/U INR: 2 WEEKS PER PT REQUEST Patient verbalizes understanding of instructions given Anti-Coag Initial Assessment Social Hx Patient Tobacco Use Status: Former Tobacco user alcohol intake: current Alcohol intake frequency: a few times a month Coding Level of Care Code Est Patient Level 1 Diagnoses Current use of anticoagulant therapy Z79.01 Assessment & Plan Assessment & Plan (1) Current use of anticoagulant therapy: Code(s): Z79.01 - [facility] (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
== END 2024-03-18 08:28 | disposition home or self-care (01) ==
LOC: HO.ACS 08:12
PROVIDERS: PCP Internal Medicine; Visit Provider Internal Medicine
DX: Z79.01 Long term (current) use of anticoagulants (principal)

== ENCOUNTER → 2024-03-18 08:12 | Outpatient (BNVA) | payer MEDICARE, SELFPAY | PROVIDERS: PCP Internal Medicine; Visit Provider Internal Medicine | DX: Z95.2 Presence of prosthetic heart valve (principal); Z79.01 Long term (current) use of anticoagulants; Z51.81 Encounter for therapeutic drug level monitoring | CPT/HCPCS: 85610; 99211 ==

== ENCOUNTER 2024-03-22 09:44 | Outpatient (AMB) | payer MEDICARE, SELFPAY ==
--- NOTE | 2024-03-22 10:30 | MHC.OFFVIS ---
Vital Signs 03/22/24 10:31 Height 5 ft 10 in Weight 266 lb 5.094 oz BMI 38.2 BP 132/60 Blood Pressure Location Lt brachial Position Sitting Pulse 60 Pulse Source Pulse Oximeter Intake Visit Reasons: 6 mth f/up Hospital Orderly Required: No Allergies Penicillins [PENICILLINS] Allergy (Severe, Verified 03/22/24 10:33) HIVES Medication List - Last Reconciled 03/22/24 by Timothy Jade MD aspirin (Lo-Dose Aspirin) 81 mg PO DAILY atorvastatin 40 mg PO DAILY furosemide 80mg in the AM and 40mg in the PM orally daily; 30 days lisinopril 40 mg PO DAILY metoprolol succinate ER 50 mg PO DAILY multivit,calc,gkn-PW-M9-lycop 240 mcg-30 mcg- 300 mcg (One-A-Day Men's Complete) 1 tab PO DAILY warfarin 5 mg See Protocol PO DAILY HPI Comments Details: Pleasant 84-year-old gentleman here for follow-up. He has known history of previous bypass surgery and mechanical aortic valve replacement. He was seen for new onset heart failure and was found to have cardiomyopathy with severely reduced ejection fraction. 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 He was sent for a Bi V AICD placement which happened in February [address] Cruz. His repeat echocardiogram in May 2019 showing ejection fraction of 50-55%. It also showed some moderate aortic stenosis and concern for patient prosthesis mismatch. He has chronic right lower extremity edema due to a blood clot in the past. He has been doing well since then. He has no chest discomfort shortness of breath. Clinically not in heart failure. Taking medications regularly. Stable on follow-up. 07/01/22: On follow-up he is doing well. He is sayng he wakes up in the middle night and cannot go back to sleep for few hours. He is saying he does not wake up for shortness of breath or PND. Overall clinically stable. 12/23/22: He returns for follow-up. He has been taking medications regularly. His denying any chest discomfort or significant shortness of breath. No significant orthopnea or PND. He has peripheral edema which is chronic. The right leg is worse than the left due to previous DVT. 04/28/23: He is here for f/u. BP is elevated. He has been doing well. No dyspnea or CP. 09/15/23: He returns for follow-up. He was seen in the office in June by our nurse practitioner. He was complaining of fatigue at that time. He had blood workup done which showed mildly elevated BNP level. He was referred for echocardiography which showed EF 60% with inferior inferolateral wall motion abnormality. Lasix was increased to 80 mg in the morning and 40 in the afternoon. He was only 80 mg once a day previously. He returns and he still has some fatigue. He said he started raking his lawn and has been feeling some barrels and taking them up hill. He is able to do somewhat more over the last week compared to before. He gets some shortness of breath going uphill. He feels tired easily. We discussed about sleep apnea previously because he is overweight. He is not interested in doing sleep study. 03/22/2024: He is here for follow-up. No chest pain or shortness of breath. He gets tired and has to take breaks. He is doing cardiac rehabilitation. Blood pressure well controlled. Chronic lower extremity edema which is stable. [facility], LAT[facility] Medical History Fatigue Current use of anticoagulant therapy Surgical History History of cardiac cath History of aortic valve replacement Family History Father No problems noted. Mother No problems noted. Social History Alcohol intake: current Alcohol intake frequency: a few times a month Alcohol type: beer Patient Tobacco Use Status: Former Tobacco user Years Smoked: 23 +/- Review of Systems ENT Reports dizziness Card Denies chest pain, Denies chest pain at rest, Denies chest pain with activity, Denies rapid heart rate, Denies pedal edema, Denies edema, Denies leg edema, Denies lightheadedness, Denies palpitations, Denies dyspnea, Denies dyspnea on exertion and Denies orthopnea Resp Denies cough, Denies dyspnea and Denies dyspnea on exertion GI Denies hematochezia and Denies change in stool character Musc Denies abnormal gait, Reports limited range of motion, Reports muscle cramps, Denies muscle weakness, Denies numbness, Denies radiating pain into limb, Denies stiffness and Denies tingling Neuro Denies abnormal gait, Reports dizziness, Denies numbness and Denies tingling Endo Denies palpitations Physical Exam Vital Signs: Last Vital Signs Pulse 60 03/22/24 10:31 BP 132/60 03/22/24 10:31 BMI result Body Mass Index 38.2 GENERAL APPEARANCE: in no acute distress, well developed, well nourished. NECK/THYROID: no carotid bruit, no jugular venous distention. SKIN: warm and dry. HEART: no murmurs, regular rate and rhythm, mechanical 2nd heart sound. LUNGS: Fine crackles both bases. ABDOMEN: normal, bowel sounds present, soft, nontender, nondistended. EXTREMITIES: 1 to 2+ edema bilaterally right more than left. PERIPHERAL PULSES: equal. NEUROLOGIC: nonfocal, alert and oriented. Assessment & Plan Assessment & Plan (1) Essential hypertension: Code(s): I10 - Essential (primary) hypertension Category: Medical (2) Chronic diastolic CHF (congestive heart failure): Code(s): I50.32 - Chronic diastolic (congestive) heart failure Category: Medical (3) History of aortic valve replacement: Comment: Mechanical Code(s): Z95.2 - Presence of prosthetic heart valve Category: Surgical Plan 84-year-old gentleman presenting for follow-up. He has background history of coronary artery bypass surgery and mechanical aortic valve replacement. 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 Clinically has been stable and has chronic lower extremity edema. He has some fatigue with activities and we previously discussed about sleep study but he is not interested. He also has some fine crackles at lung bases which could be due to interstitial lung disease but he does not wish to see pulmonology. Same medications for now. He will see us back in 6 months. Thank you for allowing me to participate in the care of your patient. Please feel free to contact me if you have any questions. Coding Level of Care Code Est Pt Level 4 (07772) Diagnoses Essential hypertension I10 Chronic diastolic CHF (congestive heart failure) I50.32 History of aortic valve replacement Z95.2
[2024-03-22 10:31] VITALS: BP 132/60; PULSE 60; BMI 38.2
== END 2024-03-22 10:54 | disposition home or self-care (01) ==
PROVIDERS: PCP Internal Medicine; Visit Provider Internal Medicine Cardiovascular Disease
DX: I10 Essential (primary) hypertension (principal); I50.32 Chronic diastolic (congestive) heart failure; Z95.2 Presence of prosthetic heart valve
CPT/HCPCS: 99214

== ENCOUNTER → 2024-03-22 09:44 | Outpatient (BNVA) | payer MEDICARE, SELFPAY | PROVIDERS: PCP Internal Medicine; Visit Provider Internal Medicine Cardiovascular Disease | DX: I11.0 Hypertensive heart disease with heart failure (principal); I50.32 Chronic diastolic (congestive) heart failure; I44.7 Left bundle-branch block, unspecified; Z95.2 Presence of prosthetic heart valve; Z79.01 Long term (current) use of anticoagulants | CPT/HCPCS: 99212 ==

== ENCOUNTER 2024-04-01 07:58 | Outpatient (AMB) | payer MEDICARE, SELFPAY ==
--- NOTE | 2024-04-01 08:20 | MHC.OFFVISCO ---
Intake Intake Visit Reasons: Anticoagulation Allergies Penicillins [PENICILLINS] Allergy (Severe, Verified 04/01/24 08:02) HIVES Medication List - Last Reconciled 04/01/24 by Janet Deng RN aspirin (Lo-Dose Aspirin) 81 mg PO DAILY atorvastatin 40 mg PO DAILY furosemide 80mg in the AM and 40mg in the PM orally daily; 30 days lisinopril 40 mg PO DAILY metoprolol succinate ER 50 mg PO DAILY multivit,calc,ugo-AL-A6-lycop 240 mcg-30 mcg- 300 mcg (One-A-Day Men's Complete) 1 tab PO DAILY warfarin 5 mg See Protocol PO DAILY Nursing Note INR 1.5?out of therapeutic range of 2-3 Pt denies missed dose. States he didn't have his usual dose of 5mg Yesterday. States he took 2.5mg yesterday. Medications and supplements reviewed Patient status: well Medications or supplements: no changes Diet: pt states he had too much greens Denies any signs and symptoms of bleeding or clotting or unusual bruising Bleeding, bruising, clotting discussed Nutritional guidance given: to avoid greens today and to have a serving of food from the list that raises the INR. Food list reviewed. Dose: increase today's dose to 5mg (2.5mg) and increase tomorrow's dose to 5mg (2.5mg) then resume usual dose of 2.5mg X 6 days and 5mg X 1 day (Fri). F/U INR Date : 1 week Patient verbalizing understanding of instructions given. 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
[2024-04-01 09:00] LABS: Prothrombin Time Whole Bld POC 17.5 sec (11.1-13.5); ~PT, ~INR - Anti Coag Clinic 1.5 (0.9-1.1)
== END 2024-04-01 10:10 | disposition home or self-care (01) ==
LOC: HO.ACS 07:58
PROVIDERS: PCP Internal Medicine; Visit Provider Internal Medicine
DX: Z79.01 Long term (current) use of anticoagulants (principal)

== ENCOUNTER → 2024-04-01 07:58 | Outpatient (BNVA) | payer MEDICARE, SELFPAY | PROVIDERS: PCP Internal Medicine; Visit Provider Internal Medicine | DX: Z95.2 Presence of prosthetic heart valve (principal); Z79.01 Long term (current) use of anticoagulants; Z51.81 Encounter for therapeutic drug level monitoring | CPT/HCPCS: 85610; 99211 ==

== ENCOUNTER → 2024-04-08 08:08 | Outpatient (BNVA) | payer MEDICARE, SELFPAY | PROVIDERS: PCP Internal Medicine; Visit Provider Internal Medicine | DX: Z95.2 Presence of prosthetic heart valve (principal); Z79.01 Long term (current) use of anticoagulants; Z51.81 Encounter for therapeutic drug level monitoring | CPT/HCPCS: 85610; 99211 ==

== ENCOUNTER 2024-04-22 07:55 | Outpatient (AMB) | payer MEDICARE, SELFPAY ==
[2024-04-22 08:11] LABS: Prothrombin Time Whole Bld POC 22.5 sec (11.1-13.5); ~PT, ~INR - Anti Coag Clinic 1.9 (0.9-1.1)
--- NOTE | 2024-04-22 08:20 | MHC.OFFVISCO ---
Intake Intake Visit Reasons: Anticoagulation Allergies Penicillins [PENICILLINS] Allergy (Severe, Verified 04/22/24 08:05) HIVES Medication List - Last Reconciled 04/22/24 by Destinee Pascal RN aspirin (Lo-Dose Aspirin) 81 mg PO DAILY atorvastatin 40 mg PO DAILY furosemide 80mg in the AM and 40mg in the PM orally daily; 30 days lisinopril 40 mg PO DAILY metoprolol succinate ER 50 mg PO DAILY multivit,calc,kzs-TE-N9-lycop 240 mcg-30 mcg- 300 mcg (One-A-Day Men's Complete) 1 tab PO DAILY warfarin 5 mg See Protocol PO DAILY Nursing Note INR: 1.9 in therapeutic range Medications and supplements reviewed may have had more greens than usual - he will have orange and reds to help raise the INR states arthtirits aches all over- may try some foods to help -like shannen turmeric tea and olives Denies any signs and symptoms of bleeding or bruising or clotting. Bleeding, bruising, clotting discussed Nutritional guidance given Dose: keeps same dose for now 5mg x 1 day/ 2.5mg x 6 days F/U INR: 2 weeks Patient verbalizes understanding of instructions given Anti-Coag Initial Assessment Social Hx Patient Tobacco Use Status: Former Tobacco user alcohol intake: current Alcohol intake frequency: a few times a month Coding Level of Care Code Est Patient Level 1 Diagnoses Current use of anticoagulant therapy Z79.01 Results AMB INR Fingerstick AMB INR Fingerstick 1.9 Last Edit by Destinee Pascal RN on 04/22/24 08:11 manual entry Assessment & Plan Assessment & Plan (1) Current use of anticoagulant therapy: Code(s): Z79.01 - senior care (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
== END 2024-04-22 08:22 | disposition home or self-care (01) ==
LOC: HO.ACS 07:55
PROVIDERS: PCP Internal Medicine; Visit Provider Internal Medicine
DX: Z79.01 Long term (current) use of anticoagulants (principal)

== ENCOUNTER → 2024-04-22 07:55 | Outpatient (BNVA) | payer MEDICARE, SELFPAY | PROVIDERS: PCP Internal Medicine; Visit Provider Internal Medicine | DX: Z95.2 Presence of prosthetic heart valve (principal); Z79.01 Long term (current) use of anticoagulants; Z51.81 Encounter for therapeutic drug level monitoring | CPT/HCPCS: 85610; 99211 ==

== ENCOUNTER 2024-05-06 08:11 | Outpatient (AMB) | payer MEDICARE, SELFPAY ==
[2024-05-06 08:23] LABS: ~PT, ~INR - Anti Coag Clinic 2.2 (0.9-1.1)
--- NOTE | 2024-05-06 08:29 | MHC.OFFVISCO ---
Intake Intake Visit Reasons: Anticoagulation Allergies Penicillins [PENICILLINS] Allergy (Severe, Verified 05/06/24 08:18) HIVES Medication List - Last Reconciled 05/06/24 by Janet Deng RN aspirin (Lo-Dose Aspirin) 81 mg PO DAILY atorvastatin 40 mg PO DAILY furosemide 80mg in the AM and 40mg in the PM orally daily; 30 days lisinopril 40 mg PO DAILY metoprolol succinate ER 50 mg PO DAILY multivit,calc,rwt-MX-J1-lycop 240 mcg-30 mcg- 300 mcg (One-A-Day Men's Complete) 1 tab PO DAILY warfarin 5 mg See Protocol PO DAILY Nursing Note INR: 2.2 in therapeutic range of 2-3 Medications and supplements reviewed No changes in health, diet, medications, or supplements, Denies any signs and symptoms of bleeding or bruising or clotting. Bleeding, bruising, clotting discussed Nutritional guidance given Dose: 2.5mg X 6 days and 5mg X 1 day F/U INR: 2 weeks Patient verbalizes understanding of instructions given Anti-Coag Initial Assessment Social Hx Patient Tobacco Use Status: Former Tobacco user alcohol intake: current Alcohol intake frequency: a few times a month Coding Level of Care Code Est Patient Level 1 Diagnoses Current use of anticoagulant therapy Z79.01 Results AMB INR Fingerstick AMB INR Fingerstick 2.2 Last Edit by Janet Deng RN on 05/06/24 08:26 interface delay Assessment & Plan Assessment & Plan (1) Current use of anticoagulant therapy: Code(s): Z79.01 - [facility] (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
== END 2024-05-06 08:30 | disposition home or self-care (01) ==
LOC: HO.ACS 08:11
PROVIDERS: PCP Internal Medicine; Visit Provider Internal Medicine
DX: Z79.01 Long term (current) use of anticoagulants (principal)

== ENCOUNTER → 2024-05-06 08:11 | Outpatient (BNVA) | payer MEDICARE, SELFPAY | PROVIDERS: PCP Internal Medicine; Visit Provider Internal Medicine | DX: Z95.2 Presence of prosthetic heart valve (principal); Z79.01 Long term (current) use of anticoagulants; Z51.81 Encounter for therapeutic drug level monitoring | CPT/HCPCS: 85610; 99211 ==

== ENCOUNTER 2024-05-20 08:11 | Outpatient (AMB) | payer MEDICARE, SELFPAY ==
[2024-05-20 08:18] LABS: Prothrombin Time Whole Bld POC 25.3 sec (11.1-13.5); ~PT, ~INR - Anti Coag Clinic 2.1 (0.9-1.1)
--- NOTE | 2024-05-20 08:23 | MHC.OFFVISCO ---
Intake Intake Visit Reasons: Anticoagulation Allergies Penicillins [PENICILLINS] Allergy (Severe, Verified 05/20/24 08:14) HIVES Medication List - Last Reconciled 05/20/24 by Janet Deng, RN aspirin (Lo-Dose Aspirin) 81 mg PO DAILY atorvastatin 40 mg PO DAILY furosemide 80mg in the AM and 40mg in the PM orally daily; 30 days lisinopril 40 mg PO DAILY metoprolol succinate ER 50 mg PO DAILY multivit,calc,vtl-VO-R9-lycop 240 mcg-30 mcg- 300 mcg (One-A-Day Men's Complete) 1 tab PO DAILY warfarin 5 mg See Protocol PO DAILY Nursing Note INR: 2.1 in therapeutic range of 2-3 Pt states he is having a lot of arthritis pain in his joints Medications and supplements reviewed No changes in health, diet, medications, or supplements, Denies any signs and symptoms of bleeding or bruising or clotting. Bleeding, bruising, clotting discussed Nutritional guidance given Dose: 2.5mg X 6 days and 5mg X 1 day F/U INR: 2 weeks Patient verbalizes understanding of instructions given Anti-Coag Initial Assessment Social Hx Patient Tobacco Use Status: Former Tobacco user alcohol intake: current Alcohol intake frequency: a few times a month Coding Level of Care Code Est Patient Level 1 Diagnoses Current use of anticoagulant therapy Z79.01 Assessment & Plan Assessment & Plan (1) Current use of anticoagulant therapy: Code(s): Z79.01 - senior care (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
--- OUTSIDE RECORDS SUMMARY | 2024-05-25 23:33 | XMS_ITS ---
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 Name Role Phone Rc You MD Primary Care Provider Unavail able Yue Lobo Unavailable [phone] Allergies Allergen (clinical drug ingredient) Drug/Non Drug Allergy documented on EMR Reaction Allergy Type Onset Date Status ramipril Altace headache Drug Allergy Active acetaminophen / oxycodone Percocet vomiting Drug Allergy Active tramadol Tramadol HCl neuropathy Drug Allergy Act javier atenolol Atenolol headache Drug Allergy Active Penicillin pain Drug Allergy Active Substance with 1-lvesfzx-8-methylgl utaryl-coenzyme A reductase inhibitor mechanism of action (substance) Statins insomnia Drug Allergy Active tetanus immune globulin Tetanus Immune Globulin questionable reaction Drug Allergy Active REASON FOR VISIT At Risk Footcare, Painful Nail(s) aggravated by shoes and causing difficulty standing/walking. Medications Medication SIG (Take, Route, Frequency, Duration) Notes Start Date End Date Status Aspirin Adult Low Dose 81 MG 1 tablet Orally Once a day for 30 day(s) Active Lisinopril 40 MG 1 tablet Orally Once a day for 30 day(s) Active Metoprolol Succinate ER 25 MG 1 tablet Orally Once a day for 30 day(s) Active Warfarin Sodium 5 MG 1 tablet Orally Onc e a day for 30 day(s) Active Clindamycin HCl 300 MG 2 capsules Orally every 8 hrs for 10 day(s) Not-Taking Atorvastatin Calcium 40 MG 1 tablet Orally Once a day for 30 day(s) Active Furosemide 40 MG 2 tablets Orally Onc e a day Active Social History Tobacco Use: Social History Observation Description Date Details (start date - stop date) Former Smoker NA - 06/16/2012 Tobacco Use/Smoking Question Answer Notes Are you a: former smoker When did you stop smoking? 06/16/2012 Additional Findings: Tobacco Non-User Ex-cigaret te smoker Alcohol Screen Question Answer Notes Did you have a drink contain ing alcohol in the past year? Yes How often did you have a dri nk containing alcohol in the past year? 2 to 4 times a month (2 points) Points 2 Interpretation Negative Tobacco use other than smoking: Question Answer Notes Are you an other tobacco user? No Problems Problem Type SNOMED Code ICD Code Onset Dates Problem Status W/U Status Risk Notes Problem Atherosclerosis of [place] artery of both lower extremities, with unspecified presence of clinical manifestation (I70.203) Active confirmed Q7(A), Q8(2B), Q9(1B,2C) Vital Signs Blood pressure systolic 121 mm Hg 05/03/20 24 Blood pressure diastolic 79 mm Hg 024 Height 5 ft 10 in in 05/03/2024 Weight 260 lbs 05/03/2024 BMI 37.3 kg/m2 05/03/2024 Procedures Procedure Date Ordered Date Performed Result Body Sit e 17913-RSAOLFZ NAIL, 6 OR MORE 05/03/2024 N/A 17437-VAST SKIN LESIONS, OVER 4 05/03/2024 N/A Encounters Encounter Location Date Provider Diagnosis [facility] [address] [place] [address] 05/03/2024 Yue Lobo Atherosclerosis of [place] artery of both lower extremities, with unspecified presence of clinical manifestation I70.203 ; Tinea unguium B35.1 ; Pain in right toe(s) M79.674 and Pain in left toe(s) M79.675 Assessments Encounter Date Diagnosis (ICD Code) Assessment Notes Treatment Notes Treatment Clinical Notes Section Notes 05/03/2024 Atherosclerosis of [place] artery of both lower extremities, with unspecified presence of clinical manifestation (ICD-10 - I70.203) Q7(A), Q8(2B), Q9(1B,2C) 05/03/2024 Tinea unguium (ICD-10 - B35.1) 05/03/2024 Pain in right toe(s) (ICD-10 - M79.674) 05/03/2024 Pain in left toe(s) (ICD-10 - M79.675) Plan Of Treatment Pending Test Test Name Order Date 29896-NLRCNEH NAIL, 6 OR MORE 05/03/2024 11517-MLYG SKIN LESIONS, OVER 4 05/03/20 24 Next Appt Details Follow Up: prn, Reason: Provider Name:Yue Graham smiley, 09/20/2024 02:45:00 PM, [address] [place], [address], Procedure Notes * Category Sub-Category Detail Notes Debride Nail 6-10 Nail debridement Performance o f this nail treatment by a nonprofessional would put this patients foot and overall health at risk. Therefore, debridement to affected nail(s), as described in exam, was performed extensively to reduce/remove overall nail length, girth, thickness, subungual debris, and necrotic tissue, by manual and/or electrical means through the use of a nail nipper and/or dremel-type loader magazine grinder, to a more viable healthy nail plate or bed tissue 6-10. Silver nitrate used for any petechial bleeding as necessary. Definitive antifungal treatment options have been reviewed and discussed with the patient. The patient chooses, no pharmaceutical tx - 17533 Keratoma Treatment Parring or Cutting o f Benign Hyperkeratotic Lesion(s) (-57) More than 4 Lesions - The Benign hyperkeratotic lesions, as described in exam, were pared, and/or cut utilizing a sterile 15 blade, tissue nippers, and/or dremel - 47948, Q8 Progress Notes * Tad VILLARDOB:1940 (84 yo M)Acc No.[id number]:05/03/2024 Progress Note Patient:?Tad VILLAR Provider:?Yue Lobo DPM :1940???Age:84 Y???Sex:Male Sam e:05/03/2024 Address:[address] [place], [place] [id number] Pcp:Rc You MD Subjective: * Chief Complaints: * ???At Risk FootcarePainful N ail(s) aggravated by shoes and causing difficulty standing/walking. * HPI: ???At Risk footcare:?Pt States Last PCP Visit:?Date?09/15/2023 ???Painful Nails:?Pt States Last PCP Visit:?Date:?09/15/2023 * ROS:?General/Constitutional:?Nausea?denies.?Vomiting?denies.?Hunger Thirst?denies.?Loss appetite?denies.?Chills?denies.?Fatigue?denies.?Fever?denies.?Night Sweats?denies.?Unexplained weight loss?denies.?Unexplained weight gain?denies.?HEENTM:?Dentures?denies.?Dizziness?denies.?Glasses/contacts?denies.?Retinopathy?de nies.?Blurred/double vision?denies.?TMJ?denies.?Discharge/drainage?denies.?Implants?denies.?Sore throat?denies.?Dental implants?denies.?Hard of hearing ?denies.?Difficulty chewing/swallowing/speaking?denies.?Nose bleeds?denies.?Sore mouth?denies.?Respiratory:?On Oxygen?denies.?Pneumonia/pleurisy?denies.?Bronchitis?denies.?Emphysema?denies.?C oughing?denies.?Cough blood?denies.?Shortness of breath?denies.?Wheezing?denies.?Cardiovascular:?Pacemaker?admits.?MVP?denies.?WPW?denies.?CHF?denies.?Heart attack?denies.?Septal defect?denies.?Rapid beat?denies.?Chest pain ?denies.?Atrial Fib.?denies.?Murmur/Palpitations?denies.?Gastrointestinal:?Hemorrhoids?denies.?Stomach/Abdominal pain?denies.?Dark blood stool?denies.?Irritable bowel ?denies.?Constipation?denies.?Diarrhea?denies.?Hematology:?Swelling?admits.?Clots?denies.?Varicose Veins?denies.?Bruising?denies.?Bleeding problem?denies.?Genitourinary:?Blood urine?denies.?Frequent/Painfu/urination/bladder control?denies.?Kidney stones?denies.?Infection (UTI)?denies.?Nephropathy?denies.?sex trans dis (STD)?denies.?Prostate?denies.?Musculoskeletal:?Hammertoes?denies.?Bunions?denies.?Back Pain?denies.?Muscle Cramps/ Resting?denies.?Muscle cramps / walking?denies.?Generalized aches and pains?denies.?Weakness?denies.?Integ.:?Meyer?denies.?Scars?denies.?Corns/calluses?denies.?Ingrown nails?denies.?Painful nails?denies.?Open Sores?denies.?Rashes?denies.?Neurologic:?Difficulty sleeping?denies.?Brain disorder?denies.?Numbness?denies.?Balance trouble?denies.?Confusion?denies.?Fainting/blackouts?denies.?Tingling?denies.?Tr emors?denies.? * Medical History:? * Surgical History:?cardiac pa cemeker bypass surgery Defibrillator valve surgery * Hospitalization/Major Diagno stic Procedure:?Denies Past Hospitalization * Family History:?Mother: dece ased.?Father: .?Siblings: diagnosed with Diabetic - NIDDM.? * Social History:?Tobacco Use:?Tobacco Use/Smoking?Are you a:?former smoker ?When did you stop smoking??06/16/2012 ?Additional Findings: Tobacco Non-User?Ex-cigarette smoker ?Tobacco use other than smoking?Are you an other tobacco user??No ???Drugs/Alcohol:?Drugs?Have you used drugs other than those for medical reasons in the past 12 months??No ?Alcohol Screen?Did you have a drink containing alcohol in the past year??Yes ?How often did you have a drink containing alcohol in the past year??2 to 4 times a month (2 points) ?Points?2 ?Interpretation?Negative ???Miscellaneous:?Caffeine: yes, frequency:, 3-5 cups per day. ?Children: no, none. ?Exercise: yes, [place]/ [place] [facility] [place] ?Marital status: single. 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 * Medications:?TakingAspirin A dult Low Dose 81 MG Tablet Delayed Release 1 tablet Orally Once a day Atorvastatin Calcium 40 MG Tablet 1 tablet Orally Once a day Furosemide 40 MG Tablet 2 tablets Orally Once a day Lisinopril 40 MG Tablet 1 tablet Orally Once a day Metoprolol Succinate ER 25 MG Tablet Extended Release 24 Hour 1 tablet Orally Once a day Warfarin Sodium 5 MG Tablet 1 tablet Orally Once a day Taking Aspirin Adult Low Dose 81 MG Tablet Delayed Release 1 tablet Orally Once a day Taking Atorvastatin Calcium 40 MG Tablet 1 tablet Orally Once a day Taking Furosemide 40 MG Tablet 2 tablets Orally Once a day Taking Lisinopril 40 MG Tablet 1 tablet Orally Once a day Taking Metoprolol Succinate ER 25 MG Tablet Extended Release 24 Hour 1 tablet Orally Once a day Taking Warfarin Sodium 5 MG Tablet 1 tablet Orally Once a day Not-Taking/PRNClindamycin HCl 300 MG Capsule 2 capsules Orally every 8 hrs Medication List reviewed and reconciled with the patientNot-Taking/PRN Clindamycin HCl 300 MG Capsule 2 capsules Orally every 8 hrs Medication List reviewed and reconciled with the patient * Allergies:?Statins: insomnia Penicillin: painPercocet: vomitingAltace: headacheAtenolol: headacheTramadol HCl: neuropathyTetanus Immune Globulin: questionable reactionyes[Allergies Verified] Objective: * Vitals:?Ht: 5 ft 10 in, Wt:2 60, BMI: 37.3, Shoe size:13, BP:121/79mm Hg, Wt-k.93 kg. * Examination: ???Vascular: ?DP PULSES(B):? 0/4, B/L.?PT PULSES(B):? 0/4, B/L.?CAPILLARY FILL TIME:? delayed, all digits, B/L.?TROPHIC CONDITION-TEXTURE/ELASTICITY/TURGOR/HAIR GROWTH(B):? decreased, fragile, thin, shiny skin, with sparse to absent hair growth, B/L.?TEMPERTURE GRADIENT(C):? decreased, cool to cool, proximal to distal, B/L.?PIGMENTATION:?rubrous, B/L.?EDEMA(C):?2/4, pitting, without aching pain.?CLAUDICATION(C):?denies, B/L.?REST PAIN:?denies, B/L.?PARESTHESIA(C):?absent, B/L.?BURNING(C):?absent, B/L.?Nails: ?NAILS are:?Elongated, overgrown, dystrophic, lytic, greater than 3mm thick, discolored and friable with crumbly malodorous subungual debris, with pain on palpation, 1-5 Left foot, T5, T6.?Dermatologic: ?SKIN FINDINGS:?Skin exam reveals Keratotic lesion(s) located at sub 1st metatarsal head B/L, sub 5th metatarsal head B/L, heels B/L.?Orthopedic: ?MUSCLE STRENGTH:?5/5 all groups in a symmetrical fashion, B/L.?Neurological: ?SENSORY:?Neurological exam reveals intact sensorium, pain sensation normal, vibration sensation intact, pinprick sensation is normal in the lower extremities, Pt denies, anesthesia, burning, paresthesia, tingling, B/L.?General Examination: ?GENERAL APPEARANCE:?Reveals a pleasant, alert, well nourished, well- developed, well hydrated individual, who demonstrates proper attention to hygiene/body habitus, and is in no acute distress, Pt serves as own historian for office visit today.?ORIENTED:?person, place, and time.? Assessment: * Assessment: 1.?Tinea unguium - B35.1 (Pr imary)???2.?Atherosclerosis of [place] artery of both lower extremities, with unspecified presence of clinical manifestation - I70.203???Notes :Q7(A), Q8(2B), Q9(1B,2C)???3.?Pain in right toe(s) - M79.674???4.?Pain in left toe(s) - M79.675??? Plan: * Treatment: 2.?Atherosclerosis of [place] artery of both lower extremities, with unspecified presence of clinical manifestation?Procedure: 44728-JAAW SKIN LESIONS, OVER 4 * Procedures:?Debride Nail 6-10:?Nail debridement?Performance of this nail treatment by a nonprofessional would put this patients foot and overall health at risk. Therefore, debridement to affected nail(s), as described in exam, was performed extensively to reduce/remove overall nail length, girth, thickness, subungual debris, and necrotic tissue, by manual and/or electrical means through the use of a nail nipper and/or dremel-type loader magazine grinder, to a more viable healthy nail plate or bed tissue 6-10. Silver nitrate used for any petechial bleeding as necessary. Definitive antifungal treatment options have been reviewed and discussed with the patient. The patient chooses, no pharmaceutical tx - 88320.?Keratoma Treatment:?Parring or Cutting of Benign Hyperkeratotic Lesion(s)?(-57) More than 4 Lesions - The Benign hyperkeratotic lesions, as described in exam, were pared, and/or cut utilizing a sterile 15 blade, tissue nippers, and/or dremel - 79832, Q8.? * Procedure Codes:?60166 DEBRI DE NAIL, 6 OR MORE, Modifiers: XS 63844 TRIM SKIN LESIONS, OVER 4, Modifiers: XS , Q8 * Follow Up:?prn * Images: * Sign off status: Completed true * Provider:?Yue Lobo DPM Date:?07/03/2023 Generated for Gallo moralez/Alvin/Tyrese on:?05/25/2024 11:32 PM EST History and Physical Notes * HPI (History of Present Illness) Category Sub-Category Detail Notes Category Not es Painful Nails Pt States Last PCP Visit: Date:: 09/15/2023 At Risk footcare Pt States Last PCP Visit: Date: 4 Examination Category Sub-Category Detail Notes Category Not es Neurological SENSORY: Neurological exa m reveals intact sensorium, pain sensation normal, vibration sensation intact, pinprick sensation is normal in the lower extremities, Pt denies, anesthesia, burning, paresthesia, tingling, B/L Dermatologic SKIN FINDINGS: Skin exam reveal s Keratotic lesion(s) located at sub 1st metatarsal head B/L, sub 5th metatarsal head B/L, heels B/L Orthopedic MUSCLE STRENGTH: 5/5 all groups in a symmetrical fashion, B/L General Examination GENERAL APPEARANCE: Reveals a pleasant, alert, well nourished, well-developed, well hydrated individual, who demonstrates proper attention to hygiene/body habitus, and is in no acute distress, Pt serves as own historian for office visit today ORIENTED: person, place, and t anahi Vascular DP PULSES(B): 0/4, B/L PT PULSES(B): 0/4, B/L CAPILLARY FILL TIME: delayed, all digits , B/L TEMPERTURE GRADIENT(C): decreased, cool to cool, proximal to distal, B/L TROPHIC CONDITION-TEXTURE/ELASTICITY/TURGOR/HAIR GROWTH(B): decreased, fragile, thin, shiny skin, wi th sparse to absent hair growth, B/L EDEMA(C): 2/4, pitting, withou t aching pain CLAUDICATION(C): denies, B/L REST PAIN: denies, B/L PIGMENTATION: rubrous, B/L PARESTHESIA(C): absent, B/L BURNING(C): absent, B/L Nails NAILS are: Elongated, overg rown, dystrophic, lytic, greater than 3mm thick, discolored and friable with crumbly malodorous subungual debris, with pain on palpation, 1-5 Left foot, T5, T6
--- OUTSIDE RECORDS SUMMARY | 2024-05-25 23:33 | XMS_ITS ---
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
--- OUTSIDE RECORDS SUMMARY | 2024-05-25 23:33 | XMS_ITS ---
Author Organization [facility] Address [address] [place] [address] Care Team Providers Care Ceo And Co Founder Name Role Phone Rc You MD Primary Care Provider Unavail able Yue Lobo Unavailable [phone] Scott Cline Unavailable [phone] Allergies Allergen (clinical drug ingredient) Drug/Non Drug Allergy documented on EMR Reaction Allergy Type Onset Date Status ramipril Altace headache Drug Allergy Active acetaminophen / oxycodone Percocet vomiting Drug Allergy Active tramadol Tramadol HCl neuropathy Drug Allergy Act javier atenolol Atenolol headache Drug Allergy Active Penicillin pain Drug Allergy Active Substance with 2-fnhoacq-3-methylgl utaryl-coenzyme A reductase inhibitor mechanism of action (substance) Statins insomnia Drug Allergy Active tetanus immune globulin Tetanus Immune Globulin questionable reaction Drug Allergy Active REASON FOR VISIT Painful nail(s) aggrevated by shoes and causing difficulty standing/walking. Medications Medication SIG (Take, Route, Frequency, Duration) Notes Start Date End Date Status Lisinopril 40 MG 1 tablet Orally Once a day for 30 day(s) Active Furosemide 40 MG 2 tablets Orally Onc e a day Active Atorvastatin Calcium 40 MG 1 tablet Orally Once a day for 30 day(s) Active Clindamycin HCl 300 MG 2 capsules Orally every 8 hrs for 10 day(s) Not-Taking Aspirin Adult Low Dose 81 MG 1 tablet Orally Once a day for 30 day(s) Active Metoprolol Succinate ER 25 MG 1 tablet Orally Once a day for 30 day(s) Active Warfarin Sodium 5 MG 1 tablet Orally Onc e a day for 30 day(s) Active Social History Tobacco Use: Social History [...] Are you an other tobacco user? No Vital Signs Height 5 ft 10 in in 10/30/2023 Weight 260 lbs 10/30/2023 BMI 37.3 kg/m2 10/30/2023 Encounters Encounter Location Date Provider Diagnosis [facility] [address] [address] 10/30/2023 Scott Cline Tinea unguium B35.1 ; Pain in right toe(s) M79.674 ; Pain in left toe(s) M79.675 ; Skin disease L98.9 ; Atherosclerosis of [place] arteries of extremities with intermittent claudication, bilateral legs I70.213 ; Other hammer toe(s) (acquired), left foot M20.42 ; Other hammer toe(s) (acquired), right foot M20.41 and Xerosis cutis L85.3 Assessments Encounter Date Diagnosis (ICD Code) Assessment Notes Treatment Notes Treatment Clinical Notes Section Notes 10/30/2023 Tinea unguium (ICD-10 - B35.1) 10/30/2023 Pain in right toe(s) (ICD-10 - M79.674) 10/30/2023 Pain in left toe(s) (ICD-10 - M79.675) 10/30/2023 Skin disease (ICD-10 - L98.9) 10/30/2023 Atherosclerosis of [place] arteries of extremities with intermittent claudication, bilateral legs (ICD-10 - I70.213) 10/30/2023 Other hammer toe(s) (acquired), left foot (ICD-10 - M20.42) 10/30/2023 Other hammer toe(s) (acquired), right foot (ICD-10 - M20.41) 10/30/2023 Xerosis cutis (ICD-10 - L85.3) Plan Of Treatment Next Appt Details Follow Up: 3 Months, Reason: Provider Name:Yue reis, 09/20/2024 02:45:00 PM, [address] [place], [address], Procedure Notes * Category Sub-Category Detail Notes Debride Nail 6-10 Nail debridement Nail debridem ent performed extensively to reduce/remove overall nail length and girth, subungual debris, and necrotic tissue, by manual and electrical means with use of a nail nipper and/or dremel, to more viable healthy nail plate or bed tissue 6-10. Silver nitrate used for any petechial bleeding as necessary. Patient chooses, no pharmaceutical tx (17148) Keratoma Treatment Parring or Cutting o f Benign Hyperkeratotic Lesion(s) 26891 (2-4 Lesions) - The Benign hyperkeratotic lesions, as described above were pared, and/or cut utilizing a sterile #15 blade, tissue nippers, and/or dremel, Q8 Progress Notes * Tad VILLARDOB:1940 (83 yo M)Acc No.[id number]:10/30/2023 Progress Note Patient:?Tad Villar Provider:?Scott Cline DPM :1940???Age:83 Y???Sex:Male Sam e:10/30/2023 Address:[address] [place], [place] [id number] Pcp:Rc You MD Subjective: * Chief Complaints: * ??? Painful nail(s) aggrevat ed by shoes and causing difficulty standing/walking. * HPI: ???Painful Nails:?Pt States Last PCP Visit:?Date:?12/23/2022 * ROS:?General/Constitutional:?Nausea?denies.?Vomiting?denies.?Hunger Thirst?denies.?Loss appetite?denies.?Chills?denies.?Fatigue?denies.?Fever?denies.?Night Sweats?denies.?Unexplained weight loss?denies.?Unexplained [...] Defibrillator valve surgery * Hospitalization/Major Diagno stic Procedure:?No Hospitalization History. * Family History:?Mother: dece ased.?Father: .?Siblings: diagnosed [...] ???Miscellaneous:?Caffeine: yes, frequency:, 3-5 cups per day. ?no Children, none. ?Exercise: yes, exercise/ cardiac rehab [facility] [place]. ?Marital status: single. 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 * Medications:?TakingAspirin A dult Low Dose 81 MG Tablet Delayed Release 1 tablet Orally Once a dayAtorvastatin Calcium 40 MG Tablet 1 tablet Orally Once a dayFurosemide 40 MG Tablet 2 tablets Orally Once a dayLisinopril 40 MG Tablet 1 tablet Orally Once a dayMetoprolol Succinate ER 25 MG Tablet Extended Release 24 Hour 1 tablet Orally Once a dayWarfarin Sodium 5 MG Tablet 1 tablet Orally Once a dayTaking Aspirin Adult Low Dose 81 MG Tablet Delayed Release 1 tablet Orally Once a dayTaking Atorvastatin Calcium 40 MG Tablet 1 tablet Orally Once a dayTaking Furosemide 40 MG Tablet 2 tablets Orally Once a dayTaking Lisinopril 40 MG Tablet 1 tablet Orally Once a dayTaking Metoprolol Succinate ER 25 MG Tablet Extended Release 24 Hour 1 tablet Orally Once a dayTaking Warfarin Sodium 5 MG Tablet 1 tablet Orally Once a dayNot-Taking/PRNClindamycin HCl 300 MG Capsule 2 capsules Orally every 8 hrsMedication List reviewed and reconciled with the patientNot-Taking/PRN Clindamycin HCl 300 MG Capsule 2 capsules Orally every 8 hrsMedication List reviewed and reconciled with the patient * Allergies:?Statins: insomnia Penicillin: painPercocet: vomitingAltace: headacheAtenolol: headacheTramadol HCl: neuropathyTetanus Immune Globulin: questionable reactionyes[Allergies Verified] Objective: * Vitals:?Ht: 5 ft 10 in, Wt: 260, BMI: 37.3, Shoe size: 13, Wt-k.93 kg. * Examination: ???Nails: ?NAILS are:?elongated,overgrown,dystrophic,greater than 3mm thick,discolored and friable with crumbly malodorous subungual debris, with pain on palpation, 1-5 Left foot, T5, T6.?General Examination: ?GENERAL APPEARANCE:?pleasant, alert, well nourished, well developed, well hydrated, with good attention to hygene/body habitus, and in no acute distress.?ORIENTED:?person,place, and time.?Neurological: ?SENSORY:?neurological exam reveals intact sensorium, pain sensation normal, vibration sensation intact, pinprick sensation is normal in the lower extremities, anesthesia, burning, tingling, B/L.?Vascular: ?DP PULSES:? 0/4, B/L.?PT PULSES:? 0/4, B/L.?HAIR GROWTH/TEXTURE/ELASTICITY/TURGOR:? decreased, B/L.?PIGMENTATION:? brawny, B/L.?EDEMA:? 3/4, B/L, Feet, Ankle(s), Leg(s).?Dermatologic: ?SKIN FINDINGS:?Skin exam reveals Keratotic lesion(s) located at, Heel(s), B/L , Skin shows sign(s) of, dryness, scaling, in a stocking fashion, no fissure(s) present, B/L.?Orthopedic: ?MUSCLE STRENGTH:?5/5 all groups in a symmetrical fashion , B/L.?DIGITAL DEFORMITIES:? Digital contracture, PIPJ, 2-5 B/L, incompl- reducable with WB, or to push-up test, no over, nor underlapping.? Assessment: * Assessment: 1.?Tinea unguium - B35.1 (Pr imary)?2.?Pain in right toe(s) - M79.674?3.?Pain in left toe(s) - M79.675?4.?Skin disease - L98.9?5.?Atherosclerosis of [place] arteries of extremities with intermittent claudication, bilateral legs - I70.213?6.?Other hammer toe(s) (acquired), left foot - M20.42?7.?Other hammer toe(s) (acquired), right foot - M20.41?8.?Xerosis cutis - L85.3? Plan: * Treatment: * Procedures:?Debride Nail 6-10:?Nail debridement?Nail debridement performed extensively to reduce/remove overall nail length and girth, subungual debris, and necrotic tissue, by manual and electrical means with use of a nail nipper and/or dremel, to more viable healthy nail plate or bed tissue 6-10. Silver nitrate used for any petechial bleeding as necessary. Patient chooses, no pharmaceutical tx (30563).?Keratoma Treatment:?Parring or Cutting of Benign Hyperkeratotic Lesion(s)?06718 (2-4 Lesions) - The Benign hyperkeratotic lesions, as described above were pared, and/or cut utilizing a sterile #15 blade, tissue nippers, and/or dremel, Q8.? * Procedure Codes:?90664 DEBRI DE NAIL, 6 OR MORE, Modifiers: XS 01551 TRIM SKIN LESIONS, 2 TO 4, Modifiers: Q8 * Follow Up:?3 Months * Images: * Sign off status: Completed true * Provider:?Scott Cline DPM Date:? 024 Generated for Gallo moralez/Alvin/eTransmitting on:?05/25/2024 11:33 PM EST History and Physical Notes * HPI (History of Present Illness) Category Sub-Category Detail Notes Category Not es Painful Nails Pt States Last PCP Visit: Date:: 12/23/2022 Examination Category Sub-Category Detail Notes Category Not es Neurological SENSORY: neurological exa m reveals intact sensorium, pain sensation normal, vibration sensation intact, pinprick sensation is normal in the lower extremities, anesthesia, burning, tingling, B/L Dermatologic SKIN FINDINGS: Skin exam reveal s Keratotic lesion(s) located at, Heel(s), B/L , Skin shows sign(s) of, dryness, scaling, in a stocking fashion, no fissure(s) present, B/L Orthopedic DIGITAL DEFORMITIES: Digital con tracture, PIPJ, 2-5 B/L, incompl-reducable with WB, or to push-up test, no over, nor underlapping MUSCLE STRENGTH: 5/5 all groups in a symmetrical fashion , B/L General Examination GENERAL APPEARANCE: pleasant , alert, well nourished, well developed, well hydrated, with good attention to hygene/body habitus, and in no acute distress ORIENTED: person,place, and ti me Vascular DP PULSES(B): 0/4, B/L PT PULSES(B): 0/4, B/L TROPHIC CONDITION-TEXTURE/EL ASTICITY/TURGOR/HAIR GROWTH(B): decreased, B/L EDEMA(C): 3/4, B/L, Feet, Ankl e(s), Leg(s) PIGMENTATION: brawny, B/L Nails NAILS are: elongated,overgr own,dystrophic,greater than 3mm thick,discolored and friable with crumbly malodorous subungual debris, with pain on palpation, 1-5 Left foot, T5, T6
--- OUTSIDE RECORDS SUMMARY | 2024-05-25 23:33 | XMS_ITS | Patient Health Record ---
[facility] Address [address] [place] [address] Care Team Providers Care Artificial Cherry Maker Name Role Phone Rc You MD Primary Care Provider Unavail able Yue Lobo Unavailable [phone] Scott Cline Unavailable [phone] Allergies Allergen (clinical drug ingredient) Drug/Non Drug Allergy documented on EMR Reaction Allergy Type Onset Date Status ramipril Altace headache Drug Allergy Active acetaminophen / oxycodone Percocet vomiting Drug Allergy Active tramadol Tramadol HCl neuropathy Drug Allergy Act javier atenolol Atenolol headache Drug Allergy Active Penicillin pain Drug Allergy Active Substance with 4-bzswhwk-5-methylgl utaryl-coenzyme A reductase inhibitor mechanism of action (substance) Statins insomnia Drug Allergy Active tetanus immune globulin Tetanus Immune Globulin questionable reaction Drug Allergy Active Reason For Referral No Information Medications Medication SIG (Take, Route, Frequency, Duration) Notes Start Date End Date Status Aspirin Adult Low Dose 81 MG 1 tablet Orally Once a day for 30 day(s) Active Atorvastatin Calcium 40 MG 1 tablet Orally Once a day for 30 day(s) Active Furosemide 40 MG 2 tablets Orally Onc e a day Active Lisinopril 40 MG 1 tablet Orally Once a day for 30 day(s) Active Metoprolol Succinate ER 25 MG 1 tablet Orally Once a day for 30 day(s) Active Warfarin Sodium 5 MG 1 tablet Orally Onc e a day for 30 day(s) Active Clindamycin HCl 300 MG 2 capsules Orally every 8 hrs for 10 day(s) Not-Taking Immunizations Vaccine Route Administration Date Status Comme nts COVID-19 Pfizer BioNTech Vaccine Unknown 04/16/2022 Administered 2020,202 Social History Tobacco Use: Social History Observation [...] Problem Status W/U Status Risk Notes Problem Acquired hammer toe of right foot (0584732809332759) Other hammer toe(s) (acquired), right foot (M20.41) Active confirmed Problem Acquired hammer toe of left foot (3436601924784327) Other hammer toe(s) (acquired), left foot (M20.42) Active confirmed Problem Intermittent claudication of bilateral lower limbs co-occurrent and due to atherosclerosis (47442825892320017 ) Atherosclerosis of [place] arteries of extremities with intermittent claudication, 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) Active confirmed Problem Atherosclerosis of [place] artery of both lower extremities, with unspecified presence of clinical manifestation (I70.203) Active confirmed Q7(A), Q8(2B), Q9(1B,2 C) Vital Signs Blood pressure diastolic 79 mm Hg 05/03/2024 Height 5 ft 10 in in 05/03/2024 Blood pressure systolic 121 mm Hg 05/03/2024 Weight 260 lbs 05/03/2024 BMI 37.3 kg/m2 05/03/2024 Procedures Procedure Date Ordered Date Performed Result Body Sit e 19300-DUXSQJZ NAIL, 6 OR MORE 05/03/2024 N/A 38972-RCLE SKIN LESIONS, OVER 4 05/03/2024 N/A Encounters Encounter Location Date Provider Diagnosis [facility] [place] [address] [place] [address] 07/07/2023 Scott Cline Tinea unguium B35.1 ; Pain in right toe(s) M79.674 ; Pain in left toe(s) M79.675 ; Skin disease L98.9 ; Atherosclerosis of [place] arteries of extremities with intermittent claudication, bilateral legs I70.213 ; Other hammer toe(s) (acquired), left foot M20.42 ; Other hammer toe(s) (acquired), right foot M20.41 and Xerosis cutis L85.[address] [address] 10/30/2023 Scott Cline Tinea unguium B35.1 ; Pain in right toe(s) M79.674 ; Pain in left toe(s) M79.675 ; Skin disease L98.9 ; Atherosclerosis of [place] arteries of extremities with intermittent claudication, bilateral legs I70.213 ; Other hammer toe(s) (acquired), left foot M20.42 ; Other hammer toe(s) (acquired), right foot M20.41 and Xerosis cutis L85.[address] [address] 02/02/2024 Scott Cline Tinea unguium B35.1 ; Pain in right toe(s) M79.674 ; Pain in left toe(s) M79.675 ; Skin disease L98.9 ; Atherosclerosis of [place] arteries of extremities with intermittent claudication, bilateral legs I70.213 ; Other hammer toe(s) (acquired), left foot M20.42 ; Other hammer toe(s) (acquired), right foot M20.41 and Xerosis cutis L85.[address] [address] 05/03/2024 Yue Lobo Atherosclerosis of [place] artery of both lower extremities, with unspecified presence of clinical manifestation I70.203 ; Tinea unguium B35.1 ; Pain in right toe(s) M79.674 and Pain in left toe(s) M79.675 Assessments Encounter Date Diagnosis (ICD Code) Assessment Notes Treatment Notes Treatment Clinical Notes Section Notes 07/07/2023 Tinea unguium (ICD-10 - B35.1) 10/30/2023 Tinea unguium (ICD-10 - B35.1) 02/02/2024 Tinea unguium (ICD-10 - B35.1) 05/03/2024 Tinea unguium (ICD-10 - B35.1) 05/03/2024 Atherosclerosis of [place] artery of both lower extremities, with unspecified presence of clinical manifestation (ICD-10 - I70.203) Q7(A), Q8(2B), Q9(1B,2C) 05/03/2024 Pain in right toe(s) (ICD-10 - M79.674) 02/02/2024 Pain in right toe(s) (ICD-10 - M79.674) 10/30/2023 Pain in right toe(s) (ICD-10 - M79.674) 07/07/2023 Pain in right toe(s) (ICD-10 - M79.674) 07/07/2023 Pain in left toe(s) (ICD-10 - M79.675) 10/30/2023 Pain in left toe(s) (ICD-10 - M79.675) 02/02/2024 Pain in left toe(s) (ICD-10 - M79.675) 05/03/2024 Pain in left toe(s) (ICD-10 - M79.675) 02/02/2024 Skin disease (ICD-10 - L98.9) 07/07/2023 Skin disease (ICD-10 - L98.9) 10/30/2023 Skin disease (ICD-10 - L98.9) 07/07/2023 Atherosclerosis of [place] arteries of extremities with intermittent claudication, bilateral legs (ICD-10 - I70.213) 10/30/2023 Atherosclerosis of [place] arteries of extremities with intermittent claudication, bilateral legs (ICD-10 - I70.213) 02/02/2024 Atherosclerosis of [place] arteries of extremities with intermittent claudication, bilateral legs (ICD-10 - I70.213) 02/02/2024 Other hammer toe(s) (acquired), left foot (ICD-10 - M20.42) 10/30/2023 Other hammer toe(s) (acquired), left foot (ICD-10 - M20.42) 07/07/2023 Other hammer toe(s) (acquired), left foot (ICD-10 - M20.42) 07/07/2023 Other hammer toe(s) (acquired), right foot (ICD-10 - M20.41) 10/30/2023 Other hammer toe(s) (acquired), right foot (ICD-10 - M20.41) 02/02/2024 Other hammer toe(s) (acquired), right foot (ICD-10 - M20.41) 02/02/2024 Xerosis cutis (ICD-10 - L85.3) 10/30/2023 Xerosis cutis (ICD-10 - L85.3) 07/07/2023 Xerosis cutis (ICD-10 - L85.3) Plan Of Treatment Pending Test Test Name Order Date 31498-ZOFRVOO NAIL, 6 OR MORE 05/03/2024 37640-CCEJ SKIN LESIONS, OVER 4 05/03/20 24 27143-TXYQ SKIN LESIONS, 2 TO 4 08/07/19 21 78589-OIQX SKIN LESIONS, 2 TO 4 12/28/19 21 49441-WRLV SKIN LESIONS, 2 TO 4 05/02/20 21 03891-AAYO SKIN LESIONS, 2 TO 4 09/06/19 22 Next Appt Details Provider Name:Yue Graham smiley, 09/20/2024 02:45:00 PM, [address] [facility], [place], [address], Insurance Providers Payer Name Payer Address Payer Phone Subscriber Number Group Number Insured Name Patient Relationship to Insured Coverage Start Date Coverage End Date Medicare National [employer] [address] [place] [address] [id number] Tad Villar Self - patient is the insured [employer] [address] [place] [address] [id number] Tad Villar Self - patient is the insured Medical (General) History Medical History History ICD Code Hypertension Heart condition Hyperlipidemia Ulcerative colitis Aortic stenosis Coronary artery disease Atrioventricular block Microscopic Hematuria Pneumonia Congestive heart failure DVT, thrombophlebitis Surgical History Surgery Date(Month/Year) cardiac pacemeker bypass surgery Defibrillator valve surgery
--- OUTSIDE RECORDS SUMMARY | 2024-05-25 23:33 | XMS_ITS ---
Author Organization [facility] Address [address] [place] [address] Care Team Providers Care Health Care / Medical Job Titles Name Role Phone Rc You MD Primary Care Provider Unavail able Yue Lobo Unavailable [phone] Scott Cline Unavailable [phone] Allergies Allergen (clinical drug ingredient) Drug/Non Drug Allergy documented on EMR Reaction Allergy Type Onset Date Status ramipril Altace headache Drug Allergy Active acetaminophen / oxycodone Percocet vomiting Drug Allergy Active tramadol Tramadol HCl neuropathy Drug Allergy Act javier atenolol Atenolol headache Drug Allergy Active Penicillin pain Drug Allergy Active Substance with 7-jzbmeol-2-methylgl utaryl-coenzyme A reductase inhibitor mechanism of action (substance) Statins insomnia Drug Allergy Active tetanus immune globulin Tetanus Immune Globulin questionable reaction Drug Allergy Active REASON FOR VISIT Painful nail(s) aggrevated by shoes and causing difficulty standing/walking. Medications Medication SIG (Take, Route, Frequency, Duration) Notes Start Date End Date Status Atorvastatin Calcium 40 MG 1 tablet Orally Once a day for 30 day(s) Active Aspirin Adult Low Dose 81 MG 1 tablet Orally Once a day for 30 day(s) Active Clindamycin HCl 300 MG 2 capsules Orally every 8 hrs for 10 day(s) Not-Taking Warfarin Sodium 5 MG 1 tablet Orally Onc e a day for 30 day(s) Active Metoprolol Succinate ER 25 MG 1 tablet Orally Once a day for 30 day(s) Active Furosemide 40 MG 2 tablets Orally Onc e a day Active Lisinopril 40 MG 1 tablet Orally Once a day for 30 day(s) Active Social [...] an other tobacco user? No Vital Signs Blood pressure systolic 121 mm Hg 02/02/20 24 Blood pressure diastolic 79 mm Hg 024 Height 5 ft 10 in in 02/02/2024 Weight 260 lbs 02/02/2024 BMI 37.30 kg/m2 02/02/2024 Encounters Encounter Location Date Provider Diagnosis [facility] [place] [address] [place] [address] 02/02/2024 Scott Cline Tinea unguium B35.1 ; Pain in right toe(s) M79.674 ; Pain in left toe(s) M79.675 ; Skin disease L98.9 ; Atherosclerosis of [place] arteries of extremities with intermittent claudication, bilateral legs I70.213 ; Other hammer toe(s) (acquired), left foot M20.42 ; Other hammer toe(s) (acquired), right foot M20.41 and Xerosis cutis L85.3 Assessments Encounter Date Diagnosis (ICD Code) Assessment Notes Treatment Notes Treatment Clinical Notes Section Notes 02/02/2024 Tinea unguium (ICD-10 - B35.1) 02/02/2024 Pain in right toe(s) (ICD-10 - M79.674) 02/02/2024 Pain in left toe(s) (ICD-10 - M79.675) 02/02/2024 Skin disease (ICD-10 - L98.9) 02/02/2024 Atherosclerosis of [place] arteries of extremities with intermittent claudication, bilateral legs (ICD-10 - I70.213) 02/02/2024 Other hammer toe(s) (acquired), left foot (ICD-10 - M20.42) 02/02/2024 Other hammer toe(s) (acquired), right foot (ICD-10 - M20.41) 02/02/2024 Xerosis cutis (ICD-10 - L85.3) Plan Of Treatment Next Appt Details Follow Up: 3 Months, Reason: Provider Name:Yue reis, 09/20/2024 02:45:00 PM, [address] [place], [address], Procedure Notes * Category Sub-Category Detail Notes [...] as necessary. Patient chooses, no pharmaceutical tx (51352) Keratoma Treatment Parring or Cutting o f Benign Hyperkeratotic Lesion(s) 75112 (2-4 Lesions) - The Benign hyperkeratotic lesions, as described above were pared, and/or cut utilizing a sterile #15 blade, tissue nippers, and/or dremel, Q8 Progress Notes * Tad VILLARDOB:1940 (83 yo M)Acc No.[id number]:02/02/2024 Progress Note Patient:?Tad Villar Provider:?Scott Cline DPM :1940???Age:83 Y???Sex:Male Sam e:02/02/2024 Address:[address] [place], [place] [id number] Pcp:Rc You MD Subjective: * Chief Complaints: * ??? Painful nail(s) aggrevat ed by shoes and causing difficulty standing/walking. * HPI: ???Painful Nails:?Pt States Last PCP Visit:?Date:?09/15/2023 * [...] Children, none. ?Exercise: yes[place] [facility] [place] ?Marital status: single. 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 * Medications:?TakingAspirin A dult Low [...] Vitals:?Ht: 5 ft 10 in, Wt:2 60, BMI:37.30, Shoe size:13, BP:121/79 mm Hg. * Examination: ???Nails: ?NAILS are:?elongated,overgrown,dystrophic,greater than 3mm [...] toe(s) - M79.675?4.?Skin disease - L98.9?5.?Atherosclerosis of [place] arteries of extremities with intermittent claudication, bilateral [...] as necessary. Patient chooses, no pharmaceutical tx (83363).?Keratoma Treatment:?Parring or Cutting of Benign Hyperkeratotic Lesion(s)?68767 (2-4 Lesions) - The Benign hyperkeratotic lesions, as described above were pared, and/or cut utilizing a sterile #15 blade, tissue nippers, and/or dremel, Q8.? * Procedure Codes:?54773 DEBRI DE NAIL, 6 OR MORE, Modifiers: XS 58196 TRIM SKIN LESIONS, 2 TO 4, Modifiers: Q8 * Follow Up:?3 Months * Images: * Sign off status: Completed true * Provider:?Scott Cline DPM Date:? 024 Generated for Gallo moralez/Alvin/eTransmthomas on:?05/25/2024 11:32 PM EST History and Physical Notes * HPI (History of Present Illness) Category Sub-Category Detail Notes Category Not es Painful Nails Pt States Last PCP Visit: Date:: 09/15/2023 Examination Category Sub-Category Detail Notes Category Not [...]
--- OUTSIDE RECORDS SUMMARY | 2024-05-25 23:34 | XMS_ITS ---
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 Role Phone [facility] You Primary Care Provider [phone] ALLERGIES Allergen (clinical drug ingredient) Drug/Non Drug Allergy documented on EMR Reaction Allergy Type Onset Date Status Penicillin pain Drug Allergy Active Tetanus questionable reaction Drug Allergy Active Statins Support insomnia Drug Allergy A ctive tramadol Tramadol HCl neuropathy Drug Allergy Act javier acetaminophen / oxycodone Percocet vomiting Drug Allergy Active atenolol Atenolol headache Drug Allergy Active ramipril Altace headache Drug Allergy Active REASON FOR VISIT 6 month f/u, Follow up Chronic systolic congestive heart failure MEDICATIONS Medication SIG (Take, Route, Frequency, Duration) Notes Start Date End Date Status Furosemide 40 MG 3 tablets Orally Onc e a day Active Atorvastatin Calcium 40 MG 1 tablet Oral ly Once a day Active Aspirin Adult Low Dose 81 MG 1 tablet Orally Once a day Active Lisinopril 40 MG 1 tablet Orally Once a day Active Metoprolol Succinate ER 25 MG 1 tablet Orally Once a day Active Warfarin Sodium 5 MG 1 tablet as directe d Orally Once a day Active SOCIAL HISTORY Tobacco Use: Social History Observation Description Date Details (start date - stop date) Former Smoker NA - NA Sex Assigned At : Social History Observation Description Sex Assigned At Male Tobacco Use/Smoking Question Answer Notes Patient is a former smoker How long has it been since y ou last smoked? > 10 years Additional Findings: Tobacco Non-User Cu rrent non-smoker, currently using no form of tobacco Alcohol Screen Question Answer Notes Did you have a drink contain ing alcohol in the past year? Yes How often did you have a dri nk containing alcohol in the past year? Monthly or less (1 point) How many drinks did you have on a typical day when you were drinking in the past year? 5 or 6 drinks (2 points) How often did you have 6 or more drinks on one occasion in the past year? 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 I25.10 ; S/P AVR (aortic valve replacement) Z95.2 and Hyperlipidemia, unspecified hyperlipidemia type E78.5 ASSESSMENTS Encounter Date Diagnosis Assessment Notes Treatment Notes Treatment Clinical Notes 08/13/2023 Chronic systolic congestive heart failure (ICD-10 - I50.22) 08/13/2023 Coronary artery disease involving enterprise coronary artery of enterprise heart without angina pectoris (ICD-10 - I25.10) 08/13/2023 S/P AVR (aortic valv e replacement) (ICD-10 - Z95.2) 08/13/2023 Hyperlipidemia, unspecified hyperlipidemia type (ICD-10 - E78.5) PLAN OF TREATMENT Medication Medication Name Sig Start Date Stop Date Notes Furosemide 40 MG 3 tablets Orally Once a day Atorvastatin Calcium 40 MG 1 tablet Orally Once a day Aspirin Adult Low Dose 81 MG 1 tablet Orally Once a day Lisinopril 40 MG 1 tablet Orally Once a day Metoprolol Succinate ER 25 MG 1 tablet Orally Once a day Warfarin Sodium 5 MG 1 tablet as directe d Orally Once a day Next Appt Details Follow Up: 6 Months, Reason: follow up visit Provider Name:Rc vivas, 08/25/2024 09:00:00 AM, [address] [place] [address], [id number], Progress Notes * Examination Category Sub-Category Detail Notes General Examination GENERAL APPEARANCE: in no ac areli distress, well developed, well nourished HEAD: normocephalic, atrau matic HEART: no murmurs, regular rate and rhythm, S1, S2 normal with a mechanical S2 click LUNGS: clear to auscultatio n bilaterally ABDOMEN: normal, bowel sounds present, soft, nontender, nondistended SKIN: warm and dry EXTREMITIES: no edema PSYCH: alert, oriented, cog nitive function intact
--- OUTSIDE RECORDS SUMMARY | 2024-05-25 23:34 | XMS_ITS | Patient Health Record ---
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 Name Role Phone Rc You Primary Care Provider ALLERGIES Allergen (clinical drug ingredient) Drug/Non Drug Allergy documented on EMR Reaction Allergy Type Onset Date Status Penicillin pain Drug Allergy Active Tetanus questionable reaction Drug Allergy Active Statins Support insomnia Drug Allergy A ctive tramadol Tramadol HCl neuropathy Drug Allergy Act javier acetaminophen / oxycodone Percocet vomiting Drug Allergy Active atenolol Atenolol headache Drug Allergy Active ramipril Altace headache Drug Allergy Active RESULTS Component Value Reference Range Notes XR sacrum coccyx min 2V Reviewed date:05/29/2023 11:00:44 PM Interpretation:Nonacute Performing Lab: Notes/Report: [address] [address] XRay Report Signed Patient: Tad Villar MR#: [id number] : 1940 Acct:[id number] Age/Sex: 83 / M ADM Date: 05/26/23 Loc: HO.[facility] Attending Dr: Rc You DO Ordering Physician: Rc You DO Date of Service: 05/26/23 Procedure(s): XR sacrum coccyx min 2V Accession Number(s): [id number] cc: Rc You DO EXAMINATION: XR PELVIS AND SACRUM CLINICAL INFORMATION: Pain. COMPARISON: CT left hip and femur 07/08/2013. TECHNIQUE: Single view pelvis with 3 views sacrum and coccyx. FINDINGS: Mild degenerative changes are seen at the SI joints with some sclerosis. Degenerative change is seen at the pubic symphysis. There is disc space narrowing seen at L5-S1 with vacuum phenomena. The sacrum and coccyx appear unremarkable without bony destructive lesions. There is mild dorsal displacement of distal coccygeal elements compared to the remainder of the coccyx which appears unchanged when compared to the 07/08/2013 CT scan. XR/XR sacrum coccyx min 2V IMPRESSION: Mild degenerative changes as described above. No acute finding. Dictated By: Constantino Lentz MD Signed By: <Electronically signed by Constantino Lentz MD in OV> 05/29/231426 DD/ 1202 TD/TT: Cardiac Technician: MARISEL XR pelvis 1-2V Reviewed date:05/29/2023 10:59:08 PM Interpretation:Nonacute Performing Lab: Notes/Report: [address] [address] XRay Report Signed Patient: Tad Villar MR#: [id number] : 1940 Acct:[id number] Age/Sex: 83 / M ADM Date: 05/26/23 Loc: HO.XRAY Attending Dr: Rc You DO Ordering Physician: Rc You DO Date of Service: 05/26/23 Procedure(s): XR pelvis 1-2V Accession Number(s): [id number] cc: Rc You DO EXAMINATION: XR PELVIS AND SACRUM CLINICAL INFORMATION: Pain. COMPARISON: CT left hip and femur 07/08/2013. TECHNIQUE: Single view pelvis with 3 views sacrum and coccyx. FINDINGS: Mild degenerative changes are seen at the SI joints with some sclerosis. Degenerative change is seen at the pubic symphysis. There is disc space narrowing seen at L5-S1 with vacuum phenomena. The sacrum and coccyx appear unremarkable without bony destructive lesions. There is mild dorsal displacement of distal coccygeal elements compared to the remainder of the coccyx which appears unchanged when compared to the 07/08/2013 CT scan. XR/XR pelvis 1-2V IMPRESSION: Mild degenerative changes as described above. No acute finding. Dictated By: Constantino Lentz MD Signed By: <Electronically signed by Constantino Lentz MD in OV> 05/29/23 142 DD/ 1202 TD/TT: Cardiac Technician: MARISEL INR WHOLE BLOOD POC Reviewed date:05/29/2023 12:01:19 PM Interpretation:Supratherapeutic Performing Lab:[facility], [address] [place] [phone] Notes/Report: PT, INR - Anti Coag Clinic 3.9 0.9-1.1 METER #: [id number] INTERNATIONAL NORMALIZED RATIO (INR) REFERENCE RANGES Reference Range For patients not on anticoagulant therapy: 0.9 - 1.1 INR ranges for oral anticoagulant therapy: For prevention and treatment of venous thrombosis and pulmonary embolism: 2.0 - 3.0 For acute myocardial infarction with aspirin therapy: 2.0 - 3.0 For acute myocardial infarction without aspirin therapy: 3.0 - 4.0 For patients with mechanical prosthetic heart valves: 2.5 - 3.5 Prothrombin Time Whole Bld P OC Reviewed date:05/29/2023 12:01:19 PM Interpretation:Supratherapeutic Performing Lab:[facility], [address] [place] [phone] Notes/Report: Prothrombin Time Whole Bld POC 46.8 11.1-13.5 sec INR WHOLE BLOOD POC Reviewed date:06/12/2023 02:58:30 PM Interpretation:Therapeutic Performing Lab:[facility], [address] [place] [phone] Notes/Report: PT, INR - Anti Coag Clinic 2.9 0.9-1.1 METER #: [id number] INTERNATIONAL NORMALIZED RATIO (INR) REFERENCE RANGES Reference Range For patients not on anticoagulant therapy: 0.9 - 1.1 INR ranges for oral anticoagulant therapy: For prevention and treatment of venous thrombosis and pulmonary embolism: 2.0 - 3.0 For acute myocardial infarction with aspirin therapy: 2.0 - 3.0 For acute myocardial infarction without aspirin therapy: 3.0 - 4.0 For patients with mechanical prosthetic heart valves: 2.5 - 3.5 Prothrombin Time Whole Bld P OC Reviewed date:06/12/2023 02:58:30 PM Interpretation:Therapeutic Performing Lab:[facility], [address] [place] [phone] Notes/Report: Prothrombin Time Whole Bld POC 34.4 11.1-13.5 sec INR WHOLE BLOOD POC Reviewed date:06/26/2023 12:31:11 PM Interpretation:Supratherapeutic Performing Lab:[address] [address] Notes/Report: PT, INR - Anti Coag Clinic 3.6 0.9-1.1 METER #: [id number] INTERNATIONAL NORMALIZED RATIO (INR) REFERENCE RANGES Reference Range For patients not on anticoagulant therapy: 0.9 - 1.1 INR ranges for oral anticoagulant therapy: For prevention and treatment of venous thrombosis and pulmonary embolism: 2.0 - 3.0 For acute myocardial infarction with aspirin therapy: 2.0 - 3.0 For acute myocardial infarction without aspirin therapy: 3.0 - 4.0 For patients with mechanical prosthetic heart valves: 2.5 - 3.5 Prothrombin Time Whole Bld P OC Reviewed date:06/26/2023 12:31:11 PM Interpretation:Supratherapeutic Performing Lab:[address] [phone] Notes/Report: Prothrombin Time Whole Bld POC 43.0 11.1-13.5 sec Complete Blood Count Auto Di ff Reviewed date:07/11/2023 03:01:39 AM Interpretation:Abnormal Performing Lab:[address] [address] Notes/Report: White Blood Count 7.6 4.8-10.8 X10*3/uL Red Blood Count 4.48 4.60-5.80 X10*6/uL Hemoglobin 13.8 14.0-18.0 g/dl Hematocrit 42.2 42.0-52.0 % Mean Corpuscular Volume 94.2 80.0-98.0 fL Mean Corpuscular Hemoglobin 30.8 27.0-33.0 pg Mean Corpuscular HGB Conc 32.7 31.0-36.0 g/dl Red Cell Distribution Width 13.1 11.0-16.0 % Platelet Count 143 160-400 X10*3/uL Mean Platelet Volume 10.6 9.4-12.4 fL Neutrophils Percent Auto 64.0 45-73 % Imm Gran Pct Auto 0.1 0.0-0.4 % Lymphocytes Percent Auto 22.9 20-40 % Monocytes Percent Auto 10.5 2-11 % Eosinophils Percent Auto 2.1 0-4 % Basophils Percent Auto 0.4 0-2 % NRBC Pct Auto 0.0 0.0-0.2 /100WBC Neutrophils Absolute Auto 4.9 2.0-8.3 x10*3/u L Imm Gran Abs Auto 0.01 0.00-0.03 X10*3/uL Lymphocytes Absolute Auto 1.7 1.2-4.9 X10*3/u L Monocytes Absolute Auto 0.8 0.1-1.2 X10*3/uL Eosinophils Absolute Auto 0.2 0.0-0.4 X10*3/u L Basophils Absolute Auto 0.0 0.0-0.2 X10*3/uL NRBC Abs Auto 0.000 0.0-0.012 X10*3/uL Basic Metabolic Panel Reviewed date:07/11/2023 03:01:39 AM Interpretation:Normal Performing Lab:[address] [address] Notes/Report: Sodium 142 135-145 mmol/L Potassium 3.9 3.3-5.1 mmol/L Chloride 104 96-108 mmol/L Carbon Dioxide 28 22-29 mmol/L Anion Gap 14 12-20 Blood Urea Nitrogen 16 9-16 mg/dL Creatinine 1.09 0.5-1.4 mg/dL Estimated Glomerular Filt Rate > 60 NOTE: For -[place] individuals, multiply the result by 1.210. Chronic Kidney Disease: Estimated GFR < 60 mL/min/1.73m2 Severe Kidney Disease: Estimated GFR < 15 mL/min/1.73m2 Glucose Random 105 60-115 mg/dL Calcium 9.4 8.4-10.2 mg/dL B Type Natriuretic Peptide Reviewed date:07/11/2023 03:01:39 AM Interpretation:Abnormal Performing Lab:[address] [address] Notes/Report: B Type Natriuretic Peptide 148 <100 pg/mL For those patients who are being treated with Natrecor (nesiritide, recombinant BNP), BNP testing should be performed at least two hours post treatment in order to ensure that only endogenous levels of BNP are detected. INR WHOLE BLOOD POC Reviewed date:07/11/2023 03:02:09 AM Interpretation:Therapeutic Performing Lab:[facility], [address] [place] [phone] Notes/Report: PT, INR - Anti Coag Clinic 3.1 0.9-1.1 METER #: [id number] INTERNATIONAL NORMALIZED RATIO (INR) REFERENCE RANGES Reference Range For patients not on anticoagulant therapy: 0.9 - 1.1 INR ranges for oral anticoagulant therapy: For prevention and treatment of venous thrombosis and pulmonary embolism: 2.0 - 3.0 For acute myocardial infarction with aspirin therapy: 2.0 - 3.0 For acute myocardial infarction without aspirin therapy: 3.0 - 4.0 For patients with mechanical prosthetic heart valves: 2.5 - 3.5 Prothrombin Time Whole Bld P OC Reviewed date:07/11/2023 03:02:29 AM Interpretation:Therapeutic Performing Lab:[facility], [address] [place] [phone] Notes/Report: Prothrombin Time Whole Bld POC 36.9 11.1-13.5 sec INR WHOLE BLOOD POC Reviewed date:07/24/2023 12:26:18 PM Interpretation:Therapeutic Performing Lab:[facility], [address] [place] [phone] Notes/Report: PT, INR - Anti Coag Clinic 2.7 0.9-1.1 METER #: [id number] INTERNATIONAL NORMALIZED RATIO (INR) REFERENCE RANGES Reference Range For patients not on anticoagulant therapy: 0.9 - 1.1 INR ranges for oral anticoagulant therapy: For prevention and treatment of venous thrombosis and pulmonary embolism: 2.0 - 3.0 For acute myocardial infarction with aspirin therapy: 2.0 - 3.0 For acute myocardial infarction without aspirin therapy: 3.0 - 4.0 For patients with mechanical prosthetic heart valves: 2.5 - 3.5 Prothrombin Time Whole Bld P OC Reviewed date:07/24/2023 12:26:51 PM Interpretation:Therapeutic Performing Lab:[facility], [address] [place] [phone] Notes/Report: Prothrombin Time Whole Bld POC 32.5 11.1-13.5 sec INR WHOLE BLOOD POC Reviewed date:08/07/2023 06:22:09 PM Interpretation:Therapeutic Performing Lab:[facility], [address] [place] [phone] Notes/Report: PT, INR - Anti Coag Clinic 2.7 0.9-1.1 METER #: [id number] INTERNATIONAL NORMALIZED RATIO (INR) REFERENCE RANGES Reference Range For patients not on anticoagulant therapy: 0.9 - 1.1 INR ranges for oral anticoagulant therapy: For prevention and treatment of venous thrombosis and pulmonary embolism: 2.0 - 3.0 For acute myocardial infarction with aspirin therapy: 2.0 - 3.0 For acute myocardial infarction without aspirin therapy: 3.0 - 4.0 For patients with mechanical prosthetic heart valves: 2.5 - 3.5 Prothrombin Time Whole Bld P OC Reviewed date:08/07/2023 06:22:09 PM Interpretation:Therapeutic Performing Lab:[facility], [address] [place] [phone] Notes/Report: Prothrombin Time Whole Bld POC 31.8 11.1-13.5 sec INR WHOLE BLOOD POC Reviewed date:08/21/2023 10:14:55 AM Interpretation:Subtherapeutic Performing Lab:[facility], [address] [place] [phone] Notes/Report: PT, INR - Anti Coag Clinic 1.7 0.9-1.1 METER #: [id number] INTERNATIONAL NORMALIZED RATIO (INR) REFERENCE RANGES Reference Range For patients not on anticoagulant therapy: 0.9 - 1.1 INR ranges for oral anticoagulant therapy: For prevention and treatment of venous thrombosis and pulmonary embolism: 2.0 - 3.0 For acute myocardial infarction with aspirin therapy: 2.0 - 3.0 For acute myocardial infarction without aspirin therapy: 3.0 - 4.0 For patients with mechanical prosthetic heart valves: 2.5 - 3.5 Prothrombin Time Whole Bld P OC Reviewed date:08/21/2023 10:14:38 AM Interpretation:Subtherapeutic Performing Lab:[facility], [address] [place] [phone] Notes/Report: Prothrombin Time Whole Bld POC 20.6 11.1-13.5 sec INR WHOLE BLOOD POC Reviewed date:09/04/2023 04:05:12 PM Interpretation:Subtherapeutic Performing Lab:[facility], [address] [place] [phone] Notes/Report: PT, INR - Anti Coag Clinic 2.4 0.9-1.1 METER #: [id number] INTERNATIONAL NORMALIZED RATIO (INR) REFERENCE RANGES Reference Range For patients not on anticoagulant therapy: 0.9 - 1.1 INR ranges for oral anticoagulant therapy: For prevention and treatment of venous thrombosis and pulmonary embolism: 2.0 - 3.0 For acute myocardial infarction with aspirin therapy: 2.0 - 3.0 For acute myocardial infarction without aspirin therapy: 3.0 - 4.0 For patients with mechanical prosthetic heart valves: 2.5 - 3.5 Prothrombin Time Whole Bld P OC Reviewed date:09/04/2023 04:05:12 PM Interpretation:Subtherapeutic Performing Lab:[facility], [address] [place] [phone] Notes/Report: Prothrombin Time Whole Bld POC 29.3 11.1-13.5 sec INR WHOLE BLOOD POC Reviewed date:09/18/2023 01:21:34 PM Interpretation:Subtherapeutic Performing Lab:[facility], [address] [place] [phone] Notes/Report: PT, INR - Anti Coag Clinic 1.8 0.9-1.1 METER #: [id number] INTERNATIONAL NORMALIZED RATIO (INR) REFERENCE RANGES Reference Range For patients not on anticoagulant therapy: 0.9 - 1.1 INR ranges for oral anticoagulant therapy: For prevention and treatment of venous thrombosis and pulmonary embolism: 2.0 - 3.0 For acute myocardial infarction with aspirin therapy: 2.0 - 3.0 For acute myocardial infarction without aspirin therapy: 3.0 - 4.0 For patients with mechanical prosthetic heart valves: 2.5 - 3.5 Prothrombin Time Whole Bld P OC Reviewed date:09/18/2023 01:21:34 PM Interpretation:Subtherapeutic Performing Lab:[facility], [address] [place] [phone] Notes/Report: Prothrombin Time Whole Bld POC 21.9 11.1-13.5 sec INR WHOLE BLOOD POC Reviewed date:10/02/2023 12:32:11 PM Interpretation:Subtherapeutic Performing Lab:[facility], [address] [place] [phone] Notes/Report: PT, INR - Anti Coag Clinic 2.2 0.9-1.1 METER #: [id number] INTERNATIONAL NORMALIZED RATIO (INR) REFERENCE RANGES Reference Range For patients not on anticoagulant therapy: 0.9 - 1.1 INR ranges for oral anticoagulant therapy: For prevention and treatment of venous thrombosis and pulmonary embolism: 2.0 - 3.0 For acute myocardial infarction with aspirin therapy: 2.0 - 3.0 For acute myocardial infarction without aspirin therapy: 3.0 - 4.0 For patients with mechanical prosthetic heart valves: 2.5 - 3.5 Prothrombin Time Whole Bld P OC Reviewed date:10/02/2023 12:32:11 PM Interpretation:Subtherapeutic Performing Lab:[facility], [address] [place] [phone] Notes/Report: Prothrombin Time Whole Bld POC 26.0 11.1-13.5 sec INR WHOLE BLOOD POC Reviewed date:10/16/2023 05:40:27 PM Interpretation:Subtherapeutic Performing Lab:[facility], [address] [place] [phone] Notes/Report: PT, INR - Anti Coag Clinic 1.6 0.9-1.1 METER #: [id number] INTERNATIONAL NORMALIZED RATIO (INR) REFERENCE RANGES Reference Range For patients not on anticoagulant therapy: 0.9 - 1.1 INR ranges for oral anticoagulant therapy: For prevention and treatment of venous thrombosis and pulmonary embolism: 2.0 - 3.0 For acute myocardial infarction with aspirin therapy: 2.0 - 3.0 For acute myocardial infarction without aspirin therapy: 3.0 - 4.0 For patients with mechanical prosthetic heart valves: 2.5 - 3.5 Prothrombin Time Whole Bld P OC Reviewed date:10/16/2023 05:40:27 PM Interpretation:Subtherapeutic Performing Lab:[facility], [address] [place] [phone] Notes/Report: Prothrombin Time Whole Bld POC 19.1 11.1-13.5 sec INR WHOLE BLOOD POC Reviewed date:10/30/2023 11:04:40 AM Interpretation:Subtherapeutic Performing Lab:[facility], [address] [place] [phone] Notes/Report: PT, INR - Anti Coag Clinic 1.8 0.9-1.1 METER #: [id number] INTERNATIONAL NORMALIZED RATIO (INR) REFERENCE RANGES Reference Range For patients not on anticoagulant therapy: 0.9 - 1.1 INR ranges for oral anticoagulant therapy: For prevention and treatment of venous thrombosis and pulmonary embolism: 2.0 - 3.0 For acute myocardial infarction with aspirin therapy: 2.0 - 3.0 For acute myocardial infarction without aspirin therapy: 3.0 - 4.0 For patients with mechanical prosthetic heart valves: 2.5 - 3.5 Prothrombin Time Whole Bld P OC Reviewed date:10/30/2023 11:04:41 AM Interpretation:Subtherapeutic Performing Lab:[facility], [address] [place] [phone] Notes/Report: Prothrombin Time Whole Bld POC 21.1 11.1-13.5 sec INR WHOLE BLOOD POC Reviewed date:11/06/2023 09:49:33 AM Interpretation:Therapeutic Performing Lab:[facility], [address] [place] [phone] Notes/Report: PT, INR - Anti Coag Clinic 2.5 0.9-1.1 METER #: [id number] INTERNATIONAL NORMALIZED RATIO (INR) REFERENCE RANGES Reference Range For patients not on anticoagulant therapy: 0.9 - 1.1 INR ranges for oral anticoagulant therapy: For prevention and treatment of venous thrombosis and pulmonary embolism: 2.0 - 3.0 For acute myocardial infarction with aspirin therapy: 2.0 - 3.0 For acute myocardial infarction without aspirin therapy: 3.0 - 4.0 For patients with mechanical prosthetic heart valves: 2.5 - 3.5 Prothrombin Time Whole Bld P OC Reviewed date:11/06/2023 09:49:33 AM Interpretation:Therapeutic Performing Lab:[facility], [address] [place] [phone] Notes/Report: Prothrombin Time Whole Bld POC 30.0 11.1-13.5 sec INR WHOLE BLOOD POC Reviewed date:11/20/2023 05:07:58 PM Interpretation:Therapeutic Performing Lab:[facility], [address] [place] [phone] Notes/Report: PT, INR - Anti Coag Clinic 3.4 0.9-1.1 METER #: [id number] INTERNATIONAL NORMALIZED RATIO (INR) REFERENCE RANGES Reference Range For patients not on anticoagulant therapy: 0.9 - 1.1 INR ranges for oral anticoagulant therapy: For prevention and treatment of venous thrombosis and pulmonary embolism: 2.0 - 3.0 For acute myocardial infarction with aspirin therapy: 2.0 - 3.0 For acute myocardial infarction without aspirin therapy: 3.0 - 4.0 For patients with mechanical prosthetic heart valves: 2.5 - 3.5 Prothrombin Time Whole Bld P OC Reviewed date:11/20/2023 05:07:58 PM Interpretation:Therapeutic Performing Lab:[address] [phone] Notes/Report: Prothrombin Time Whole Bld POC 40.3 11.1-13.5 sec INR WHOLE BLOOD POC Reviewed date:12/04/2023 02:13:26 PM Interpretation:Subtherapeutic Performing Lab:[facility], [address] [place] [phone] Notes/Report: PT, INR - Anti Coag Clinic 2.1 0.9-1.1 METER #: [id number] INTERNATIONAL NORMALIZED RATIO (INR) REFERENCE RANGES Reference Range For patients not on anticoagulant therapy: 0.9 - 1.1 INR ranges for oral anticoagulant therapy: For prevention and treatment of venous thrombosis and pulmonary embolism: 2.0 - 3.0 For acute myocardial infarction with aspirin therapy: 2.0 - 3.0 For acute myocardial infarction without aspirin therapy: 3.0 - 4.0 For patients with mechanical prosthetic heart valves: 2.5 - 3.5 Prothrombin Time Whole Bld P OC Reviewed date:12/04/2023 02:13:26 PM Interpretation:Subtherapeutic Performing Lab:[address] [phone] Notes/Report: Prothrombin Time Whole Bld POC 24.8 11.1-13.5 sec INR WHOLE BLOOD POC Reviewed date:12/23/2023 09:20:14 AM Interpretation:Subtherapeutic Performing Lab:[address] [phone] Notes/Report: PT, INR - Anti Coag Clinic 2.4 0.9-1.1 METER #: [id number] INTERNATIONAL NORMALIZED RATIO (INR) REFERENCE RANGES Reference Range For patients not on anticoagulant therapy: 0.9 - 1.1 INR ranges for oral anticoagulant therapy: For prevention and treatment of venous thrombosis and pulmonary embolism: 2.0 - 3.0 For acute myocardial infarction with aspirin therapy: 2.0 - 3.0 For acute myocardial infarction without aspirin therapy: 3.0 - 4.0 For patients with mechanical prosthetic heart valves: 2.5 - 3.5 Prothrombin Time Whole Bld P OC Reviewed date:12/23/2023 09:20:14 AM Interpretation:Subtherapeutic Performing Lab:[address] [phone] Notes/Report: Prothrombin Time Whole Bld POC 29.1 11.1-13.5 sec INR WHOLE BLOOD POC Reviewed date:01/08/2024 05:36:01 PM Interpretation:Subtherapeutic Performing Lab:[address] [phone] Notes/Report: PT, INR - Anti Coag Clinic 2.0 0.9-1.1 METER #: [id number] INTERNATIONAL NORMALIZED RATIO (INR) REFERENCE RANGES Reference Range For patients not on anticoagulant therapy: 0.9 - 1.1 INR ranges for oral anticoagulant therapy: For prevention and treatment of venous thrombosis and pulmonary embolism: 2.0 - 3.0 For acute myocardial infarction with aspirin therapy: 2.0 - 3.0 For acute myocardial infarction without aspirin therapy: 3.0 - 4.0 For patients with mechanical prosthetic heart valves: 2.5 - 3.5 Prothrombin Time Whole Bld P OC Reviewed date:01/08/2024 05:36:52 PM Interpretation:Subtherapeutic Performing Lab:[address] [phone] Notes/Report: Prothrombin Time Whole Bld POC 24.2 11.1-13.5 sec INR WHOLE BLOOD POC Reviewed date:01/22/2024 04:15:39 PM Interpretation:Subtherapeutic Performing Lab:[place] [address], [place] [address] Notes/Report: PT, INR - Anti Coag Clinic 2.4 0.9-1.1 METER #: [id number] INTERNATIONAL NORMALIZED RATIO (INR) REFERENCE RANGES Reference Range For patients not on anticoagulant therapy: 0.9 - 1.1 INR ranges for oral anticoagulant therapy: For prevention and treatment of venous thrombosis and pulmonary embolism: 2.0 - 3.0 For acute myocardial infarction with aspirin therapy: 2.0 - 3.0 For acute myocardial infarction without aspirin therapy: 3.0 - 4.0 For patients with mechanical prosthetic heart valves: 2.5 - 3.5 Prothrombin Time Whole Bld P OC Reviewed date:01/22/2024 04:15:39 PM Interpretation:Subtherapeutic Performing Lab:[facility], [address] [place] [phone] Notes/Report: Prothrombin Time Whole Bld POC 28.7 11.1-13.5 sec INR WHOLE BLOOD POC Reviewed date:02/06/2024 12:01:20 PM Interpretation:Subtherapeutic Performing Lab:[facility], [address] [place] [phone] Notes/Report: PT, INR - Anti Coag Clinic 1.8 0.9-1.1 METER #: [id number] INTERNATIONAL NORMALIZED RATIO (INR) REFERENCE RANGES Reference Range For patients not on anticoagulant therapy: 0.9 - 1.1 INR ranges for oral anticoagulant therapy: For prevention and treatment of venous thrombosis and pulmonary embolism: 2.0 - 3.0 For acute myocardial infarction with aspirin therapy: 2.0 - 3.0 For acute myocardial infarction without aspirin therapy: 3.0 - 4.0 For patients with mechanical prosthetic heart valves: 2.5 - 3.5 Prothrombin Time Whole Bld P OC Reviewed date:02/06/2024 12:01:20 PM Interpretation:Subtherapeutic Performing Lab:[facility], [address] [place] [phone] Notes/Report: Prothrombin Time Whole Bld POC 21.5 11.1-13.5 sec INR WHOLE BLOOD POC Reviewed date:02/19/2024 11:14:27 AM Interpretation:Subtherapeutic Performing Lab:[facility], [address] [place] [phone] Notes/Report: PT, INR - Anti Coag Clinic 1.8 0.9-1.1 METER #: [id number] INTERNATIONAL NORMALIZED RATIO (INR) REFERENCE RANGES Reference Range For patients not on anticoagulant therapy: 0.9 - 1.1 INR ranges for oral anticoagulant therapy: For prevention and treatment of venous thrombosis and pulmonary embolism: 2.0 - 3.0 For acute myocardial infarction with aspirin therapy: 2.0 - 3.0 For acute myocardial infarction without aspirin therapy: 3.0 - 4.0 For patients with mechanical prosthetic heart valves: 2.5 - 3.5 Prothrombin Time Whole Bld P OC Reviewed date:02/19/2024 11:14:27 AM Interpretation:Subtherapeutic Performing Lab:[address] [phone] Notes/Report: Prothrombin Time Whole Bld POC 21.1 11.1-13.5 sec Complete Blood Count Auto Di ff Reviewed date:02/20/2024 09:36:20 AM Interpretation:Abnormal Performing Lab:[facility], [address] [place] [phone] Notes/Report: White Blood Count 6.9 4.8-10.8 X10*3/uL Red Blood Count 4.36 4.60-5.80 X10*6/uL Hemoglobin 13.8 14.0-18.0 g/dl Hematocrit 42.0 42.0-52.0 % Mean Corpuscular Volume 96.3 80.0-98.0 fL Mean Corpuscular Hemoglobin 31.7 27.0-33.0 pg Mean Corpuscular HGB Conc 32.9 31.0-36.0 g/dl Red Cell Distribution Width 13.5 11.0-16.0 % Platelet Count 149 160-400 X10*3/uL Mean Platelet Volume 10.2 9.4-12.4 fL Neutrophils Percent Auto 59.3 45-73 % Imm Gran Pct Auto 0.1 0.0-0.4 % Lymphocytes Percent Auto 27.2 20-40 % Monocytes Percent Auto 10.3 2-11 % Eosinophils Percent Auto 2.7 0-4 % Basophils Percent Auto 0.4 0-2 % NRBC Pct Auto 0.0 0.0-0.2 /100WBC Neutrophils Absolute Auto 4.1 2.0-8.3 x10*3/u L Imm Gran Abs Auto 0.01 0.00-0.03 X10*3/uL Lymphocytes Absolute Auto 1.9 1.2-4.9 X10*3/u L Monocytes Absolute Auto 0.7 0.1-1.2 X10*3/uL Eosinophils Absolute Auto 0.2 0.0-0.4 X10*3/u L Basophils Absolute Auto 0.0 0.0-0.2 X10*3/uL NRBC Abs Auto 0.000 0.0-0.012 X10*3/uL Comprehensive Ray. Panel Fa st Reviewed date:02/20/2024 09:36:02 AM Interpretation:Abnormal Performing Lab:[facility], [address] [place] [phone] Notes/Report: Sodium 141 135-145 mmol/L Potassium 3.9 3.3-5.1 mmol/L Chloride 104 96-108 mmol/L Carbon Dioxide 31 22-29 mmol/L Anion Gap 10 12-20 Blood Urea Nitrogen 19 9-16 mg/dL Creatinine 1.25 0.5-1.4 mg/dL Estimated Glomerular Filt Rate 55 NOTE: For -[place] individuals, multiply the result by 1.210. Chronic Kidney Disease: Estimated GFR < 60 mL/min/1.73m2 Severe Kidney Disease: Estimated GFR < 15 mL/min/1.73m2 Glucose Fasting 97 60-99 mg/dL Calcium 9.9 8.4-10.2 mg/dL Bilirubin Total 0.9 0.0-1.0 mg/dL Aspartate Amino Transferase 33 5-37 U/L Alanine Aminotransferase 19 0-40 U/L Total Protein 7.5 6.5-8.0 g/dL Albumin Level 3.7 3.5-5.0 g/dL Alkaline Phosphatase 65 39-117 U/L B Type Natriuretic Peptide Reviewed date:02/20/2024 09:36:02 AM Interpretation:Abnormal Performing Lab:[facility], [address] [place] [phone] Notes/Report: B Type Natriuretic Peptide 101 <100 pg/mL For those patients who are being treated with Natrecor (nesiritide, recombinant BNP), BNP testing should be performed at least two hours post treatment in order to ensure that only endogenous levels of BNP are detected. Lipid Panel Reviewed date:02/20/2024 09:36:02 AM Interpretation:Abnormal Performing Lab:[facility], [address] [place] [phone] Notes/Report: Triglycerides 88 <150 mg/dL Desirable Triglyceride: less than 150 mg/dL Borderline High Triglyceride 150-199 mg/dL High Triglyceride: 200-499 mg/dL Very High Triglyceride: greater than or equal to 5OO mg/dL Cholesterol 127 <200 mg/dL Desirable Cholesterol: less than 200 mg/dL Borderline High Cholesterol: 200-239 mg/dL High Cholesterol: greater than 239 mg/dL LDL Cholesterol Calculated 74 <100 mg/dL Desirable LDL: less than 100 mg/dL Near Optimal/Above Optimal LDL: 110-129 mg/dL Borderline High LDL: 130-159 mg/dL High LDL: 160-189 mg/dL Very High LDL: greater than or equal to 190 mg/dL HDL Cholesterol 36 >40 mg/dL Desirable HDL: greater than 40 mg/dL Note: This HDL assay may give artificially low results in patients with liver disease. Thyroid Stimulating Hormone Reviewed date:02/20/2024 09:36:02 AM Interpretation:Normal Performing Lab:[facility], [address] [place] [phone] Notes/Report: Thyroid Stimulating Hormone 2.86 0.32-4.0 uIU/ mL Note: A sustained TSH level above 2.5 uIU/mL may warrant further investigation. TSH 3rd Generation ([facility]) INR WHOLE BLOOD POC Reviewed date:02/26/2024 12:07:23 PM Interpretation:Subtherapeutic Performing Lab:[facility], [address] [place] [phone] Notes/Report: PT, INR - Anti Coag Clinic 2.4 0.9-1.1 METER #: [id number] INTERNATIONAL NORMALIZED RATIO (INR) REFERENCE RANGES Reference Range For patients not on anticoagulant therapy: 0.9 - 1.1 INR ranges for oral anticoagulant therapy: For prevention and treatment of venous thrombosis and pulmonary embolism: 2.0 - 3.0 For acute myocardial infarction with aspirin therapy: 2.0 - 3.0 For acute myocardial infarction without aspirin therapy: 3.0 - 4.0 For patients with mechanical prosthetic heart valves: 2.5 - 3.5 Prothrombin Time Whole Bld P OC Reviewed date:02/26/2024 12:07:23 PM Interpretation:Subtherapeutic Performing Lab:[facility], [address] [place] [phone] Notes/Report: Prothrombin Time Whole Bld POC 28.6 11.1-13.5 sec INR WHOLE BLOOD POC Reviewed date:03/04/2024 09:09:11 AM Interpretation:Therapeutic Performing Lab:[facility], [address] [place] [phone] Notes/Report: PT, INR - Anti Coag Clinic 2.5 0.9-1.1 METER #: [id number] INTERNATIONAL NORMALIZED RATIO (INR) REFERENCE RANGES Reference Range For patients not on anticoagulant therapy: 0.9 - 1.1 INR ranges for oral anticoagulant therapy: For prevention and treatment of venous thrombosis and pulmonary embolism: 2.0 - 3.0 For acute myocardial infarction with aspirin therapy: 2.0 - 3.0 For acute myocardial infarction without aspirin therapy: 3.0 - 4.0 For patients with mechanical prosthetic heart valves: 2.5 - 3.5 Prothrombin Time Whole Bld P OC Reviewed date:03/04/2024 09:09:11 AM Interpretation:Therapeutic Performing Lab:[facility], [address] [place] [phone] Notes/Report: Prothrombin Time Whole Bld POC 29.8 11.1-13.5 sec INR WHOLE BLOOD POC Reviewed date:03/18/2024 11:44:06 AM Interpretation:Subtherapeutic Performing Lab:[facility], [address] [place] [phone] Notes/Report: PT, INR - Anti Coag Clinic 2.3 0.9-1.1 METER #: [id number] INTERNATIONAL NORMALIZED RATIO (INR) REFERENCE RANGES Reference Range For patients not on anticoagulant therapy: 0.9 - 1.1 INR ranges for oral anticoagulant therapy: For prevention and treatment of venous thrombosis and pulmonary embolism: 2.0 - 3.0 For acute myocardial infarction with aspirin therapy: 2.0 - 3.0 For acute myocardial infarction without aspirin therapy: 3.0 - 4.0 For patients with mechanical prosthetic heart valves: 2.5 - 3.5 Prothrombin Time Whole Bld P OC Reviewed date:03/18/2024 11:44:06 AM Interpretation:Subtherapeutic Performing Lab:[facility], [address] [place] [phone] Notes/Report: Prothrombin Time Whole Bld POC 27.6 11.1-13.5 sec INR WHOLE BLOOD POC Reviewed date:04/01/2024 11:18:04 AM Interpretation:Subtherapeutic Performing Lab:[facility], [address] [place] [phone] Notes/Report: PT, INR - Anti Coag Clinic 1.5 0.9-1.1 METER #: [id number] INTERNATIONAL NORMALIZED RATIO (INR) REFERENCE RANGES Reference Range For patients not on anticoagulant therapy: 0.9 - 1.1 INR ranges for oral anticoagulant therapy: For prevention and treatment of venous thrombosis and pulmonary embolism: 2.0 - 3.0 For acute myocardial infarction with aspirin therapy: 2.0 - 3.0 For acute myocardial infarction without aspirin therapy: 3.0 - 4.0 For patients with mechanical prosthetic heart valves: 2.5 - 3.5 Prothrombin Time Whole Bld P OC Reviewed date:04/01/2024 11:18:04 AM Interpretation:Subtherapeutic Performing Lab:[facility], [address] [place] [phone] Notes/Report: Prothrombin Time Whole Bld POC 17.5 11.1-13.5 sec INR WHOLE BLOOD POC Reviewed date:04/08/2024 12:30:51 PM Interpretation:Therapeutic Performing Lab:[facility], [address] [place] [phone] Notes/Report: PT, INR - Anti Coag Clinic 3.3 0.9-1.1 METER #: [id number] INTERNATIONAL NORMALIZED RATIO (INR) REFERENCE RANGES Reference Range For patients not on anticoagulant therapy: 0.9 - 1.1 INR ranges for oral anticoagulant therapy: For prevention and treatment of venous thrombosis and pulmonary embolism: 2.0 - 3.0 For acute myocardial infarction with aspirin therapy: 2.0 - 3.0 For acute myocardial infarction without aspirin therapy: 3.0 - 4.0 For patients with mechanical prosthetic heart valves: 2.5 - 3.5 Prothrombin Time Whole Bld P OC Reviewed date:04/08/2024 12:30:51 PM Interpretation:Therapeutic Performing Lab:[facility], [address] [place] [phone] Notes/Report: Prothrombin Time Whole Bld POC 40.1 11.1-13.5 sec INR WHOLE BLOOD POC Reviewed date:04/22/2024 09:03:12 AM Interpretation:Subtherapeutic Performing Lab:[facility], [address] [place] [phone] Notes/Report: PT, INR - Anti Coag Clinic 1.9 0.9-1.1 METER #: [id number] INTERNATIONAL NORMALIZED RATIO (INR) REFERENCE RANGES Reference Range For patients not on anticoagulant therapy: 0.9 - 1.1 INR ranges for oral anticoagulant therapy: For prevention and treatment of venous thrombosis and pulmonary embolism: 2.0 - 3.0 For acute myocardial infarction with aspirin therapy: 2.0 - 3.0 For acute myocardial infarction without aspirin therapy: 3.0 - 4.0 For patients with mechanical prosthetic heart valves: 2.5 - 3.5 Prothrombin Time Whole Bld P OC Reviewed date:04/22/2024 09:03:12 AM Interpretation:Subtherapeutic Performing Lab:[facility], [address] [place] [phone] Notes/Report: Prothrombin Time Whole Bld POC 22.5 11.1-13.5 sec INR WHOLE BLOOD POC Reviewed date:05/06/2024 10:42:32 AM Interpretation:Subtherapeutic Performing Lab:[facility], [address] [place] [phone] Notes/Report: PT, INR - Anti Coag Clinic 2.2 0.9-1.1 METER #: [id number] INTERNATIONAL NORMALIZED RATIO (INR) REFERENCE RANGES Reference Range For patients not on anticoagulant therapy: 0.9 - 1.1 INR ranges for oral anticoagulant therapy: For prevention and treatment of venous thrombosis and pulmonary embolism: 2.0 - 3.0 For acute myocardial infarction with aspirin therapy: 2.0 - 3.0 For acute myocardial infarction without aspirin therapy: 3.0 - 4.0 For patients with mechanical prosthetic heart valves: 2.5 - 3.5 Prothrombin Time Whole Bld P OC Reviewed date:05/06/2024 10:42:32 AM Interpretation:Subtherapeutic Performing Lab:[facility], [address] [place] [phone] Notes/Report: Prothrombin Time Whole Bld POC 26.0 11.1-13.5 sec INR WHOLE BLOOD POC Reviewed date:05/20/2024 12:13:06 PM Interpretation:Subtherapeutic Performing Lab:[facility], [address] [place] [phone] Notes/Report: PT, INR - Anti Coag Clinic 2.1 0.9-1.1 METER #: [id number] INTERNATIONAL NORMALIZED RATIO (INR) REFERENCE RANGES Reference Range For patients not on anticoagulant therapy: 0.9 - 1.1 INR ranges for oral anticoagulant therapy: For prevention and treatment of venous thrombosis and pulmonary embolism: 2.0 - 3.0 For acute myocardial infarction with aspirin therapy: 2.0 - 3.0 For acute myocardial infarction without aspirin therapy: 3.0 - 4.0 For patients with mechanical prosthetic heart valves: 2.5 - 3.5 Prothrombin Time Whole Bld P OC Reviewed date:05/20/2024 12:13:06 PM Interpretation:Subtherapeutic Performing Lab:[facility], [address] [place] [phone] Notes/Report: Prothrombin Time Whole Bld POC 25.3 11.1-13.5 sec REASON FOR REFERRAL Reason Persistent left sacr al/pelvic pain s/p fall Diagnosis 1 Unspecified injury o f lower back, initial encounter (S39.92XA) Referral Organization Rc Wyatt FACP Referring Provider First Name Rc Referring Provider Last Name Avelino Referring Provider Speciality Internal M edicine Referred Provider [facility], Physical Therap y Referred Provider Specialty Physical The rapist General Notes Larisa Macario 024 11:21:19 AM EST > referral faxed; patient aware PT office will call him to schedule appointments. Referral Priority Routine Reason Polyarthralgia Osteo arthritis Diagnosis 1 Unspecified osteoart hritis, unspecified site (M19.90) Referral Organization Rc M Avelino D O, FACP Referring Provider First Name Rc Referring Provider Last Name Avelino Referring Provider Speciality Internal M edicine Referred Provider Barrington Cano Referred Provider Specialty Rheumatology General Notes Larisa Macario 11:17:49 AM EST > referral faxed; patient aware specialist's office will contact him., Larisa Macario 05/07/2024 04:25:08 PM EST > [facility] Rheumatology is not accepting new patients., cR You 05/07/2024 05:40:16 PM EST > refer [facility] to [facility] 05/11/2024 09:24:10 AM EST > Patient called and said he will not go to [place] and he will figure something else out. Clinical Notes Larisa Macario 11:16:59 AM EST > Telephone Encouner 05/07/2024, Severe joint pain, upper and lower extremities, onset (2) weeks ago. Relief taking Tylenol 2 tabs bid, but patient still has trouble getting out of bed in the morning. Referral Priority Routine MEDICATIONS Medication SIG (Take, Route, Frequency, Duration) Notes Start Date End Date Status Metoprolol Succinate ER 25 MG 1 tablet Orally Once a day Active Warfarin Sodium 5 MG 1 tablet as directe d Orally Once a day Active Furosemide 40 MG 3 tablets Orally Onc e a day Active Lisinopril 40 MG 1 tablet Orally Once a day for 90 days Active Lisinopril 40 MG 1 tablet Orally Once a day for 30 day(s) 02/18/2024 Active Atorvastatin Calcium 40 MG 1 tablet Oral ly Once a day for 90 days Active Aspirin Adult Low Dose 81 MG 1 tablet Orally Once a day Active IMMUNIZATIONS Vaccine Route Administration Date Status Comme nts COVID-19 Moderna Vaccine Unknown 04/03/2021 Administere d COVID-19 Moderna Vaccine Unknown 03/05/2021 Administere d COVID-19 Moderna Vaccine Unknown 09/07/2021 Administere d COVID-19 Moderna Bivalent Unknown 05/19/2022 Administer ed Influenza Unknown 04/07/2019 Refused Influenza Unknown 08/22/2021 Refused SOCIAL HISTORY Tobacco Use: Social History Observation [...] Monthly (2 points) Points 5 Interpretation Positive PROBLEMS Problem Type ICD Code Onset Dates Problem Status W/U Status Risk SNOMED Code Notes Problem Essential hypertension (I10) Active confirmed 71546872 Problem S/P AVR (aortic valve replacement) (Z95.2) Active confirmed 2303044100389 Problem Hyperlipidemia, unspecified hyperlipidemia type (E78.5) Active confirmed 27543657 Problem Chronic systolic congestive heart failure (I50.22) Active confirmed 182275692 Problem Coronary artery disease involving elem coronary artery of elem heart without angina pectoris (I25.10) Active confirmed 72374368 Problem Age-related cataract of both eyes, unspecified age-related cataract type (H25.9) Active confirmed 68160106 Problem Unspecified osteoarthritis, unspecified site (M19.90) Active confirmed Osteoarthritis (400973952) VITAL SIGNS Blood pressure diastolic 76 mm Hg 02/18/2024 Height 69 in 02/18/2024 Blood pressure systolic 152 mm Hg 02/18/2024 Weight 268 lbs 02/18/2024 BMI 39.57 kg/m2 02/18/2024 Encounters Encounter Location Date Provider Diagnosis Rc You DO, [facility] [address] [place], [place] [id number] 08/13/2023 Rc You Chronic systolic congestive heart failure I50.22 ; Coronary artery disease involving elem coronary artery of elem heart without angina pectoris I25.10 ; S/P AVR (aortic valve replacement) Z95.2 and Hyperlipidemia, unspecified hyperlipidemia type E78.5 Rc You DO, [facility] [address] [place], [place] [id number] 02/18/2024 Rc You Essential hypertensi on I10 ; S/P AVR (aortic valve replacement) Z95.2 ; Hyperlipidemia, unspecified hyperlipidemia type E78.5 ; Chronic systolic congestive heart failure I50.22 and Coronary artery disease involving elem coronary artery of elem heart without angina pectoris I25.10 Rc Idania Avelino ZAPATA, [address] [id number] 05/26/2023 Rc You Coccygeal pain M53.3 Rc You DO, [address] [id number] 06/02/2023 Rc You DO, [address] [id number] 06/27/2023 Rc Tatum Idania Avelino ZAPATA, [address] [id number] 05/07/2024 Rc You ASSESSMENTS Encounter Date Diagnosis Assessment Notes Treatment Notes Treatment Clinical Notes 08/13/2023 Chronic systolic congestive heart failure (ICD-10 - I50.22) 08/13/2023 Coronary artery disease involving elem coronary artery of elem heart without angina pectoris (ICD-10 - I25.10) 02/18/2024 Essential hypertension (ICD-10 - I10) 02/18/2024 S/P AVR (aortic valv e replacement) (ICD-10 - Z95.2) 05/26/2023 Coccygeal pain (ICD-10 - M53.3) 08/13/2023 S/P AVR (aortic valv e replacement) (ICD-10 - Z95.2) 02/18/2024 Hyperlipidemia, unspecified hyperlipidemia type (ICD-10 - E78.5) 08/13/2023 Hyperlipidemia, unspecified hyperlipidemia type (ICD-10 - E78.5) 02/18/2024 Chronic systolic congestive heart failure (ICD-10 - I50.22) 02/18/2024 Coronary artery disease involving elem coronary artery of elem heart without angina pectoris (ICD-10 - I25.10) PLAN OF TREATMENT Next Appt Details Provider Name:Rc Riggins Bertidania sangeetha, 08/25/2024 09:00:00 AM, [address] [place] [address], [id number], Insurance Providers Payer Name Payer Address Payer Phone Subscriber Number Group Number Insured Name Patient Relationship to Insured Coverage Start Date Coverage End Date MEDICARE [address] [place] [phone] [id number] Tad Villar Self - patient is the insured [employer] [address] [place] [address] [id number] Tad Villar Self - patient is the insured MEDICAL (GENERAL) HISTORY Medical History History ICD Code hypertension deep venous thrombosis times 2, right lower extremity, with post phlebitic syndrome hyperlipidemia ulcerative colitis aortic stenosis, moderate, s/p AVR with a mechanical [employer] valve coronary artery disease s/p 4 vessel CAB G atrioventricular block s/p PPP microhematuria with a negative evaluatio n pneumonia Chronic systolic congestive heart failur e I50.22 congestive heart failure s/p ICD
--- OUTSIDE RECORDS SUMMARY | 2024-05-25 23:34 | XMS_ITS ---
Author Organization Rc Vaishnavi Avelino ZAPATA, FACP Address [address] [place], [place] [id number] Care Team Providers Care Network Internship Name Role Phone Rc You Primary Care [...] FOR VISIT 6 month f/u, Follow up hypertension, Chronic systolic congestive heart failure MEDICATIONS Medication SIG (Take, Route, Frequency, Duration) Notes Start Date End Date Status Warfarin Sodium 5 MG 1 tablet as directe d Orally Once a day Active Lisinopril 40 MG 1 tablet Orally Once a day for 90 days Active Lisinopril 40 MG 1 tablet Orally Once a day for 30 day(s) 02/18/2024 Active Aspirin Adult Low Dose 81 MG 1 tablet Orally Once a day Active Atorvastatin Calcium 40 MG 1 tablet Oral ly Once a day Active Metoprolol Succinate ER 25 MG 1 tablet Orally Once a day Active Furosemide 40 MG 3 tablets Orally Onc e a day Active SOCIAL HISTORY Tobacco Use: [...] Points 5 Interpretation Positive VITAL SIGNS BMI 39.57 kg/m2 02/18/2024 Blood pressure systolic 152 mm Hg 02/18/20 24 Blood pressure diastolic 76 mm Hg 024 Height 69 in 02/18/2024 Weight 268 lbs 02/18/2024 Encounters Encounter Location Date Provider Diagnosis Rc You DO, [facility] [address] [place], [place] [id number] 02/18/2024 Rc You Essential hypertensi on I10 ; S/P AVR (aortic valve replacement) Z95.2 ; Hyperlipidemia, unspecified hyperlipidemia type E78.5 ; Chronic systolic congestive heart failure I50.22 and Coronary artery disease involving robinson coronary artery of robinson heart without angina pectoris I25.10 ASSESSMENTS Encounter Date Diagnosis Assessment Notes Treatment Notes Treatment Clinical Notes 02/18/2024 Essential hypertension (ICD-10 - I10) 02/18/2024 S/P AVR (aortic valv e replacement) (ICD-10 - Z95.2) 02/18/2024 Hyperlipidemia, unspecified hyperlipidemia type (ICD-10 - E78.5) 02/18/2024 Chronic systolic congestive heart failure (ICD-10 - I50.22) 02/18/2024 Coronary artery disease involving robinson coronary artery of robinson heart without angina pectoris (ICD-10 - I25.10) PLAN OF TREATMENT Medication Medication Name Sig Start Date Stop Date Notes Warfarin Sodium 5 MG 1 tablet as directe d Orally Once a day Lisinopril 40 MG 1 tablet Orally Once a day for 30 day(s) 02/18/2024 Aspirin Adult Low Dose 81 MG 1 tablet Orally Once a day Atorvastatin Calcium 40 MG 1 tablet Orally Once a day Metoprolol Succinate ER 25 MG 1 tablet Orally Once a day Furosemide 40 MG 3 tablets Orally Once a day Next Appt Details Follow Up: 6 Months, Reason: follow up visit Provider Name:Rc vivas, 08/25/2024 09:00:00 AM, [address] [place], [place], [id number], Progress Notes * Examination Category Sub-Category Detail Notes General Examination GENERAL APPEARANCE: in no ac hamilton distress, well developed, well nourished HEAD: normocephalic, atrau matic HEART: no murmurs, regular rate and rhythm, S1, S2 normal with a mechanical S2 click LUNGS: clear to auscultatio n bilaterally ABDOMEN: normal, bowel sounds present, soft, nontender, nondistended SKIN: warm and dry EXTREMITIES: no edema PSYCH: alert, oriented, cog nitive function intact
--- OUTSIDE RECORDS SUMMARY | 2024-05-25 23:34 | XMS_ITS | Patient Health Record ---
Author Organization [facility] Address [address] [place] [address] Care Team Providers Care Recycling Assistant Name Role Phone Avelino Jean-Paul ZAPATA Primary Care Provider Unavail able Jean-Paul Lemus Unavailable [phone] ALLERGIES Allergen (clinical drug ingredient) Drug/Non Drug Allergy documented on EMR Reaction Allergy Type Onset Date Status novacaine Unknown Drug Allergy Active seasonal (uncoded) Unknown Allergy A ctive REASON FOR REFERRAL No Information MEDICATIONS Medication SIG (Take, Route, Frequency, Duration) Notes Start Date End Date Status Atorvastatin Calcium 40 MG Oral for 90 Active Metoprolol Succinate ER 25 MG Oral for 90 Active Aspir-81 81 MG 1 tablet Orally Once a day Active Warfarin Sodium 5 MG 1 tablet Orally Onc e a day Active Lisinopril 20 MG 1 tablet Orally Once a day Active Furosemide 40 MG 1 tablet Orally Once a day for 30 day(s) Active IMMUNIZATIONS Vaccine Route Administration Date Status Comme nts Influenza Unknown 07/10/2021 Refused SOCIAL HISTORY Sex Assigned At : Social History Observation Description Sex Assigned At Unknown Alcohol Screen Question Answer Notes Did you have a drink contain ing alcohol in the past year? Yes How often did you have a dri nk containing alcohol in the past year? 2 to 4 times a month (2 points) How many drinks did you have on a typical day when you were drinking in the past year? 10 or more drinks (4 points) Points 6 Interpretation Positive PROBLEMS Problem Type ICD Code Onset Dates Problem Status W/U Status Risk SNOMED Code Notes Problem Hypertension (401.9) Active confirmed Hypertension (85087041) Problem Colon cancer screening (V76.51) Active confirmed Colon cancer screening (833339957) Problem Constipation, unspecified constipation type (K59.00) Active confirmed 90225165 Problem Change in bowel habits (R19.4) Active confirmed 507053449 PLAN OF TREATMENT No Information Insurance Providers Payer Name Payer Address Payer Phone Subscriber Number Group Number Insured Name Patient Relationship to Insured Coverage Start Date Coverage End Date MEDICARE OF [place] [address] [place] [address] [id number] HANNAH HEIDI Self - patient is the insured [employer] CLAIMS [address] [place] [address] [id number] HEIDI YOUNG Self - patient is the insured MEDICAL (GENERAL) HISTORY Medical History History ICD Code Hypertension Denies OR,DM,CVA,Lung disease,renal dise ase Colonoscopies in [address] 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 Dodson at [facility], pacemaker and defibrillator--sees Dr. Jade DVT in right leg in 2003 Surgical History Surgery Date(Month/Year) 4V CABG and aortic valve replacement in 2013 as above 2013 Defibrillator Pacemaker
== END 2024-05-20 08:25 | disposition home or self-care (01) ==
LOC: HO.ACS 08:11
PROVIDERS: PCP Internal Medicine; Visit Provider Internal Medicine
DX: Z79.01 Long term (current) use of anticoagulants (principal)

== ENCOUNTER → 2024-05-20 08:11 | Outpatient (BNVA) | payer MEDICARE, SELFPAY | PROVIDERS: PCP Internal Medicine; Visit Provider Internal Medicine | DX: Z95.2 Presence of prosthetic heart valve (principal); Z79.01 Long term (current) use of anticoagulants; Z51.81 Encounter for therapeutic drug level monitoring | CPT/HCPCS: 85610; 99211 ==

== ENCOUNTER → 2024-05-24 23:59 | Outpatient (BNV) | payer MEDICARE, SELFPAY ==
--- NOTE | 2024-06-09 19:26 | A.OFFVIS_ITS ---
Intake Visit Reasons: Remote ICD check- [facility] Allergies Penicillins [PENICILLINS] Allergy (Severe, Verified 06/08/24 08:15) HIVES [facility] Medical History Fatigue Current use of anticoagulant therapy Surgical History History of cardiac cath History of aortic valve replacement Family History Father No problems noted. Mother No problems noted. Social History Alcohol intake: current Alcohol intake frequency: a few times a month Alcohol type: beer Patient Tobacco Use Status: Former Tobacco user Years Smoked: 23 +/- Office Procedures Cardiac Device Check Cardiac Device Check Details: Biv AICD Battery 2.4 years. V Paced 99%. No new alerts. 19731-TE Cardiac Device Check, multi lead implantable defibrillator Procedure code (CPT) selection complete Assessment & Plan Assessment & Plan (1) ICD (implantable cardioverter-defibrillator) in place: Code(s): Z95.810 - Presence of automatic (implantable) cardiac defibrillator Category: Medical Plan: Coding Level of Care Code Procedure Only Diagnoses ICD (implantable cardioverter-defibrillator) in place Z95.810 CPT Codes Cardiac Device Check - Cardiac Device 6: 54031-UI Cardiac Device Check, multi lead implantable defibrillator ([id number])
== END ==
PROVIDERS: PCP Internal Medicine; Visit Provider Internal Medicine Cardiovascular Disease
DX: Z45.02 Encounter for adjustment and management of automatic implantable cardiac defibrillator (principal)
CPT/HCPCS: 93295

== ENCOUNTER 2024-05-31 12:45 | Outpatient (AMB) | payer MEDICARE, SELFPAY ==
[2024-05-31 13:01] VITALS: BP 130/60; PULSE 66; BMI 38.3
--- NOTE | 2024-05-31 13:01 | A.OFFVIS_ITS ---
Vital Signs 05/31/24 13:01 Height 5 ft 10 in Weight 266 lb 12.149 oz BMI 38.3 BP 130/60 Blood Pressure Location Lt brachial Position Sitting Pulse 66 Pulse Source Pulse Oximeter Intake Visit Reasons: f/up Intake Note: f/up Industrial Hygienist Required: No Accompanied by: Self / Same As Patient Allergies Penicillins [PENICILLINS] Allergy (Severe, Verified 05/20/24 08:14) HIVES Medication List - Last Reconciled 05/31/24 by Timothy Jade MD aspirin (Lo-Dose Aspirin) 81 mg PO DAILY atorvastatin 40 mg PO DAILY furosemide 80mg in the AM and 40mg in the PM orally daily; 30 days lisinopril 40 mg PO DAILY metoprolol succinate ER 50 mg PO DAILY multivit,calc,wnf-WS-V8-lycop 240 mcg-30 mcg- 300 mcg (One-A-Day Men's Complete) 1 tab PO DAILY warfarin 5 mg See Protocol PO DAILY HPI Comments Details: Pleasant 84-year-old gentleman here for follow-up. He has known history of previous bypass surgery and mechanical aortic valve replacement. He was seen for new onset heart failure and was found to have cardiomyopathy with severely reduced ejection fraction. 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 He was sent for a Bi V AICD placement which happened in February 2019 at [facility] by Dr. Cruz. His repeat echocardiogram in May 2019 showing ejection fraction of 50-55%. It also showed some moderate aortic stenosis and concern for patient prosthesis mismatch. He has chronic right lower extremity edema due to a blood clot in the past. He has been doing well since then. He has no chest discomfort shortness of breath. Clinically not in heart failure. Taking medications regularly. Stable on follow-up. 07/01/22: On follow-up he is doing well. He is sayng he wakes up in the middle night and cannot go back to sleep for few hours. He is saying he does not wake up for shortness of breath or PND. Overall clinically stable. 12/23/22: He returns for follow-up. He has been taking medications regularly. His denying any chest discomfort or significant shortness of breath. No significant orthopnea or PND. He has peripheral edema which is chronic. The right leg is worse than the left due to previous DVT. 04/28/23: He is here for f/u. BP is elevated. He has been doing well. No dyspnea or CP. 09/15/23: He returns for follow-up. He was seen in the office in June by our nurse practitioner. He was complaining of fatigue at that time. He had blood workup done which showed mildly elevated BNP level. He was referred for echocardiography which showed EF 60% with inferior inferolateral wall motion abnormality. Lasix was increased to 80 mg in the morning and 40 in the afternoon. He was only 80 mg once a day previously. He returns and he still has some fatigue. He said he started raking his lawn and has been feeling some barrels and taking them up hill. He is able to do somewhat more over the last week compared to before. He gets some shortness of breath going uphill. He feels tired easily. We discussed about sleep apnea previously because he is overweight. He is not interested in doing sleep study. 03/22/2024: He is here for follow-up. No chest pain or shortness of breath. He gets tired and has to take breaks. He is doing cardiac rehabilitation. Blood pressure well controlled. Chronic lower extremity edema which is stable. 05/31/2024: Tad is back for follow-up. He is saying he has significant arthritis in his knees and was told 10 years ago that he has severe arthritis. More recently he has been getting pains in his hands and shoulders. He said he was using Tylenol up to 2 times a day with some relief but asking whether he can have some better treatment for this. He is on Coumadin. Continues to have lower extremity edema which is chronic. His breathing is at baseline. He is saying that he was in cardiac rehabilitation where the nurses checked his pulse or oxygen level and told him to go to ER. He is unsure whether what exactly happened. We will get some more information from cardiac rehabilitation. [facility] Medical History Fatigue Current use of anticoagulant therapy Surgical History History of cardiac cath History of aortic valve replacement Family History Father No problems noted. Mother No problems noted. Social History Alcohol intake: current Alcohol intake frequency: a few times a month Alcohol type: beer Patient Tobacco Use Status: Former Tobacco user Years Smoked: 23 +/- Review of Systems Const Denies chills, Denies fatigue, Denies fever(s), Denies frequent falls, Denies weakness, Denies weight gain and Denies weight loss ENT Denies dizziness Card Denies chest pain, Denies leg edema, Denies lightheadedness, Denies palpitations, Denies dyspnea and Denies dyspnea on exertion Resp Denies cough, Denies dyspnea and Denies dyspnea on exertion GI Denies hematochezia Musc Denies abnormal gait, Denies muscle weakness, Denies numbness, Denies radiating pain into limb and Denies tingling Neuro Denies abnormal gait, Denies dizziness, Denies frequent falls, Denies numbness, Denies tingling and Denies weakness Endo Denies fatigue and Denies palpitations Physical Exam Vital Signs: Last Vital Signs Pulse 66 05/31/24 13:01 BP 130/60 05/31/24 13:01 BMI result Body Mass Index 38.3 GENERAL APPEARANCE: in no acute distress, well developed, well nourished. NECK/THYROID: no carotid bruit, no jugular venous distention. SKIN: warm and dry. HEART: no murmurs, regular rate and rhythm, mechanical 2nd heart sound. LUNGS: Fine crackles both bases. ABDOMEN: normal, bowel sounds present, soft, nontender, nondistended. EXTREMITIES: 2+ edema bilaterally right more than left. PERIPHERAL PULSES: equal. NEUROLOGIC: nonfocal, alert and oriented. Assessment & Plan Assessment & Plan (1) Current use of anticoagulant therapy: Code(s): Z79.01 - prison (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 (2) Chronic diastolic CHF (congestive heart failure): Code(s): I50.32 - Chronic diastolic (congestive) heart failure Category: Medical (3) S/P AVR: Code(s): Z95.2 - Presence of prosthetic heart valve Category: Surgical Plan Pleasant 84 year gentleman who is here for follow-up. He has background history of coronary artery bypass surgery and mechanical aortic valve replacement. He had left bundle-branch block and cardiomyopathy secondary to left bundle-branch block and underwent MAIL CARRIER D with improvement in ejection fraction. His battery life is close to 2.5 years at this point. He is here mostly to discuss about pains in his joints all over the body. He does not want to get surgery for his knees. He is asking whether he can use any pain medicines. Starting him on Celebrex 100 mg twice a day. I have advised him to stop the aspirin and continue Coumadin as before. We will let the Coumadin Clinic now because there is interaction between Celebrex and Coumadin. He will see us back in few months. As he starts improving we will change Celebrex to as needed. Thank you for allowing me to participate in the care of your patient. Please feel free to contact me if you have any questions. Medications: New celecoxib (Celebrex) 100 mg PO BID 100 caps 3RF Coding Level of Care Code Est Pt Level 4 (10306) Diagnoses Current use of anticoagulant therapy Z79.01 Chronic diastolic CHF (congestive heart failure) I50.32 S/P AVR Z95.2
== END 2024-05-31 13:40 | disposition home or self-care (01) ==
PROVIDERS: PCP Internal Medicine; Visit Provider Internal Medicine Cardiovascular Disease
DX: Z79.01 Long term (current) use of anticoagulants (principal); I50.32 Chronic diastolic (congestive) heart failure; Z95.2 Presence of prosthetic heart valve
CPT/HCPCS: 99214

== ENCOUNTER → 2024-05-31 12:45 | Outpatient (BNVA) | payer MEDICARE, SELFPAY | PROVIDERS: PCP Internal Medicine; Visit Provider Internal Medicine Cardiovascular Disease | DX: I50.32 Chronic diastolic (congestive) heart failure (principal); Z95.2 Presence of prosthetic heart valve; Z79.01 Long term (current) use of anticoagulants; Z95.1 Presence of aortocoronary bypass graft | CPT/HCPCS: 99212 ==

== ENCOUNTER 2024-06-03 08:06 | Outpatient (AMB) | payer MEDICARE, SELFPAY ==
--- OUTSIDE RECORDS SUMMARY | 2024-06-03 08:09 | XMS_ITS ---
Author Organization [facility] Address [address] [place] [address] Care Team Providers Care Gate Services Supervisor Name Role Phone Rc You MD Primary Care Provider Unavail able Yue Lobo Unavailable [phone] Scott Cline Unavailable [phone] Allergies Allergen (clinical drug ingredient) Drug/Non Drug Allergy documented on EMR Reaction Allergy Type Onset Date Status ramipril Altace headache Drug Allergy Active acetaminophen / oxycodone Percocet vomiting Drug Allergy Active tramadol Tramadol HCl neuropathy Drug Allergy Act javier atenolol Atenolol headache Drug Allergy Active Penicillin pain Drug Allergy Active Substance with 2-mhxtsyq-9-methylgl utaryl-coenzyme A reductase inhibitor mechanism of action [...] 10/30/2023 Encounters Encounter Location Date Provider Diagnosis [facility] [address] [address] 10/30/2023 Scott Cline Tinea unguium B35.1 ; Pain in right toe(s) M79.674 ; Pain in left toe(s) M79.675 ; Skin disease L98.9 ; 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 Patient chooses, no pharmaceutical tx (30123) Keratoma Treatment Parring or Cutting o f Benign Hyperkeratotic Lesion(s) 19324 (2-4 Lesions) - The Benign hyperkeratotic lesions, as described above were pared, and/or cut utilizing a sterile #15 blade, tissue nippers, and/or dremel, Q8 Progress Notes * Tad VILLARDOB:1940 (83 yo M)Acc No.[id number]:10/30/2023 Progress Note Patient:?Tad Villar Provider:?Scott Cline DPM :1940???Age:83 Y???Sex:Male Sam e:10/30/2023 Address:[address] [place], [place] [id number] Pcp:Rc You MD Subjective: * Chief Complaints: [...] Children, none. ?Exercise: yes, exercise/ cardiac rehab [facility]. ?Marital status: single. 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 Patient chooses, no pharmaceutical tx (85060).?Keratoma Treatment:?Parring or Cutting of Benign Hyperkeratotic Lesion(s)?69595 (2-4 Lesions) - The Benign hyperkeratotic lesions, as described above were pared, and/or cut utilizing a sterile #15 blade, tissue nippers, and/or dremel, Q8.? * Procedure Codes:?25126 DEBRI DE NAIL, 6 OR MORE, Modifiers: XS 97307 TRIM SKIN LESIONS, 2 TO 4, Modifiers: Q8 * Follow Up:?3 Months * Images: * Sign off status: Completed true * Provider:?Scott Cline DPM Date:? 024 Generated for Gallo moralez/Alvin/eTransmitting on:?06/03/2024 08:09 AM EST History and Physical Notes * HPI [...] ORIENTED: person,place, and ti me Vascular DP PULSES (B): 0/4, B/L PT PULSES (B): 0/4, B/L TROPHIC CONDITION-TEXTURE/EL ASTICITY/TURGOR/HAIR GROWTH (B): decreased, B/L EDEMA (C): 3/4, B/L, Feet, Ankl e(s), Leg(s) PIGMENTATION: brawny, B/L Nails NAILS are: elongated,overgr own,dystrophic,greater than 3mm thick,discolored and friable with crumbly malodorous subungual debris, with pain on palpation, 1-5 Left foot, T5, T6
--- OUTSIDE RECORDS SUMMARY | 2024-06-03 08:09 | XMS_ITS ---
Author Organization [facility] Address [address] [place] [address] Care Team Providers Care General Agent Name Role Phone Rc You MD Primary Care Provider Unavail able Yue Lobo Unavailable [phone] Scott Cline Unavailable [phone] Allergies Allergen (clinical drug ingredient) Drug/Non Drug Allergy documented on EMR Reaction Allergy Type Onset Date Status ramipril Altace headache Drug Allergy Active acetaminophen / oxycodone Percocet vomiting Drug Allergy Active tramadol Tramadol HCl neuropathy Drug Allergy Act javier atenolol Atenolol headache Drug Allergy Active Penicillin pain Drug Allergy Active Substance with 0-viqfibs-9-methylgl utaryl-coenzyme A reductase inhibitor mechanism of action [...] Signs Height 5 ft 10 in in 02/02/2024 Weight 260 lbs 02/02/2024 BMI 37.30 kg/m2 02/02/2024 Blood pressure systolic 121 mm Hg 02/02/20 24 Blood pressure diastolic 79 mm Hg 024 Encounters Encounter Location Date Provider Diagnosis [facility] [place] [address] [place] [address] 02/02/2024 Scott Cline Tinea unguium B35.1 ; Pain in right toe(s) M79.674 ; Pain in left toe(s) M79.675 ; Skin disease L98.9 ; Atherosclerosis of chinik arteries of extremities with intermittent claudication, bilateral [...] disease (ICD-10 - L98.9) 02/02/2024 Atherosclerosis of chinik arteries of extremities with intermittent claudication, bilateral legs (ICD-10 - I70.213) 02/02/2024 Other hammer toe(s) (acquired), left foot (ICD-10 - M20.42) 02/02/2024 Other hammer toe(s) (acquired), right foot (ICD-10 - M20.41) 02/02/2024 Xerosis cutis (ICD-10 - L85.3) Plan Of Treatment Next Appt Details Follow Up: 3 Months, Reason: Provider Name:Yue reis, 09/20/2024 02:45:00 PM, [address] [place], [address], Procedure Notes * Category Sub-Category Detail Notes [...] as necessary. Patient chooses, no pharmaceutical tx (23298) Keratoma Treatment Parring or Cutting o f Benign Hyperkeratotic Lesion(s) 16999 (2-4 Lesions) - The Benign hyperkeratotic lesions, as described above were pared, and/or cut utilizing a sterile #15 blade, tissue nippers, and/or dremel, Q8 Progress Notes * Tad VILLARDOB:1940 (83 yo M)Acc No.[id number]:02/02/2024 Progress Note Patient:?Tad Villar Provider:?Scott Cline DPM :1940???Age:83 Y???Sex:Male Sam e:02/02/2024 Address:[address] [place], [place] [id number] Pcp:Rc You MD Subjective: * Chief Complaints: [...] ?Exercise: yes, exercise/ cardiac rehab [facility]. ?Marital status: single. 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 * Medications:?TakingAspirin A dult Low [...] toe(s) - M79.675?4.?Skin disease - L98.9?5.?Atherosclerosis of chinik arteries of extremities with intermittent claudication, bilateral [...] as necessary. Patient chooses, no pharmaceutical tx (67482).?Keratoma Treatment:?Parring or Cutting of Benign Hyperkeratotic Lesion(s)?27500 (2-4 Lesions) - The Benign hyperkeratotic lesions, as described above were pared, and/or cut utilizing a sterile #15 blade, tissue nippers, and/or dremel, Q8.? * Procedure Codes:?05010 DEBRI DE NAIL, 6 OR MORE, Modifiers: XS 33679 TRIM SKIN LESIONS, 2 TO 4, Modifiers: Q8 * Follow Up:?3 Months * Images: * Sign off status: Completed true * Provider:?Scott Cline DPM Date:? 024 Generated for Gallo moralez/Alvin/eTelyssa on:?06/03/2024 08:09 AM EST History and Physical [...]
--- OUTSIDE RECORDS SUMMARY | 2024-06-03 08:09 | XMS_ITS ---
Author Organization [facility] Address [address] [place] [address] Care Team Providers Care Apricot Packer Name Role Phone Rc You MD Primary Care Provider Unavail able Yue Lobo Unavailable [phone] Allergies Allergen (clinical drug ingredient) Drug/Non Drug Allergy documented on EMR Reaction Allergy Type Onset Date Status ramipril Altace headache Drug Allergy Active acetaminophen / oxycodone Percocet vomiting Drug Allergy Active tramadol Tramadol HCl neuropathy Drug Allergy Act javier atenolol Atenolol headache Drug Allergy Active Penicillin pain Drug Allergy Active Substance with 7-vllxses-0-methylgl utaryl-coenzyme A reductase inhibitor mechanism of action [...] W/U Status Risk Notes Problem Atherosclerosis of iroquois artery of both lower extremities, with unspecified presence of clinical manifestation (I70.203) Active confirmed Q7(A), Q8(2B), Q9(1B,2C) Vital Signs Height 5 ft 10 in in 05/03/2024 Weight 260 lbs 05/03/2024 BMI 37.3 kg/m2 05/03/2024 Blood pressure systolic 121 mm Hg 05/03/20 24 Blood pressure diastolic 79 mm Hg 024 Procedures Procedure Date Ordered Date Performed Result Body Sit e 66664-GPZBNEM NAIL, 6 OR MORE 05/03/2024 N/A 21191-WJAT SKIN LESIONS, OVER 4 05/03/2024 N/A Encounters Encounter Location Date Provider Diagnosis [facility] [place] [address] [place] [address] 05/03/2024 Yue Lobo Atherosclerosis of iroquois artery of both lower extremities, with unspecified presence of clinical manifestation I70.203 ; Tinea unguium B35.1 ; Pain in right toe(s) M79.674 and Pain in left toe(s) M79.675 Assessments Encounter Date Diagnosis (ICD Code) Assessment Notes Treatment Notes Treatment Clinical Notes Section Notes 05/03/2024 Atherosclerosis of iroquois artery of both lower extremities, with unspecified presence of clinical manifestation (ICD-10 - I70.203) Q7(A), Q8(2B), Q9(1B,2C) 05/03/2024 Tinea unguium (ICD-10 - B35.1) 05/03/2024 Pain in right toe(s) (ICD-10 - M79.674) 05/03/2024 Pain in left toe(s) (ICD-10 - M79.675) Plan Of Treatment Pending Test Test Name Order Date 97743-IRPFZQU NAIL, 6 OR MORE 05/03/2024 35705-KIFN SKIN LESIONS, OVER 4 05/03/20 24 Next Appt Details Follow Up: prn, Reason: Provider Name:Yue Graham smiley, 09/20/2024 02:45:00 PM, [address] [place], [address], Procedure Notes * Category Sub-Category Detail Notes [...] use of a nail nipper and/or dremel-type watch crystal grinder, to a more viable healthy nail plate or bed tissue 6-10. Silver nitrate used for any petechial bleeding as necessary. Definitive antifungal treatment options have been reviewed and discussed with the patient. The patient chooses, no pharmaceutical tx - [address]2845 Keratoma Treatment Parring or Cutting o f Benign Hyperkeratotic Lesion(s) (-57) More than 4 Lesions - The Benign hyperkeratotic lesions, as described in exam, were pared, and/or cut utilizing a sterile 15 blade, tissue nippers, and/or dremel - 72981, Q8 Progress Notes * Tad VILLARDOB:1940 (84 yo M)Acc No.[id number]:05/03/2024 Progress Note Patient:?Tad VILLAR Provider:?Yue Lobo DPM :1940???Age:84 Y???Sex:Male Sam e:05/03/2024 Address:[address] [place], [place] [id number] Pcp:Rc You MD Subjective: * Chief Complaints: [...] no, none. ?Exercise: yes, exercise/ cardiac rehab [facility] [place] [place]. ?Marital status: single. 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 * Medications:?TakingAspirin A dult Low [...] 1.?Tinea unguium - B35.1 (Pr imary)???2.?Atherosclerosis of iroquois artery of both lower extremities, with unspecified presence of clinical manifestation - I70.203???Notes :Q7(A), Q8(2B), Q9(1B,2C)???3.?Pain in right toe(s) - M79.674???4.?Pain in left toe(s) - M79.675??? Plan: * Treatment: 2.?Atherosclerosis of iroquois artery of both lower extremities, with unspecified presence of clinical manifestation?Procedure: 11557-TNWK SKIN LESIONS, OVER 4 * Procedures:?Debride Nail [...] use of a nail nipper and/or dremel-type watch crystal grinder, to a more viable healthy nail plate or bed tissue 6-10. Silver nitrate used for any petechial bleeding as necessary. Definitive antifungal treatment options have been reviewed and discussed with the patient. The patient chooses, no pharmaceutical tx - 60320.?Keratoma Treatment:?Parring or Cutting of Benign Hyperkeratotic Lesion(s)?(-57) More than 4 Lesions - The Benign hyperkeratotic lesions, as described in exam, were pared, and/or cut utilizing a sterile 15 blade, tissue nippers, and/or dremel - 95099, Q8.? * Procedure Codes:?95903 DEBRI DE NAIL, 6 OR MORE, Modifiers: XS 18452 TRIM SKIN LESIONS, OVER 4, Modifiers: XS , Q8 * Follow Up:?prn * Images: * Sign off status: Completed true * Provider:?Yue Lobo DPM Date:?07/03/2023 Generated for Gallo moralez/Alvin/Tyrese on:?06/03/2024 08:09 AM EST History and Physical [...] person, place, and t anahi Vascular DP PULSES (B): 0/4, B/L PT PULSES (B): 0/4, B/L CAPILLARY FILL TIME: delayed, all digits , B/L TEMPERTURE GRADIENT (C): decreased, cool to cool, proximal to distal, B/L TROPHIC CONDITION-TEXTURE/ELASTICITY/TURGOR/HAIR GROWTH (B): decreased, fragile, thin, shiny skin, wi th sparse to absent hair growth, B/L EDEMA (C): 2/4, pitting, withou t aching pain CLAUDICATION (C): denies, B/L REST PAIN: denies, B/L PIGMENTATION: rubrous, B/L PARESTHESIA (C): absent, B/L BURNING (C): absent, B/L Nails NAILS are: Elongated, overg rown, dystrophic, lytic, greater than 3mm thick, discolored and friable with crumbly malodorous subungual debris, with pain on palpation, 1-5 Left foot, T5, T6
--- OUTSIDE RECORDS SUMMARY | 2024-06-03 08:10 | XMS_ITS | Patient Health Record ---
Author Organization [facility] Address [address] [place] [address] Care Team Providers Care Vehicle Return Associate Name Role Phone Avelino Jean-Paul ZAPATA Primary Care Provider Unavail able Jean-Paul Lemus Unavailable [phone] ALLERGIES Allergen (clinical drug ingredient) Drug/Non Drug [...] Notes Problem Hypertension (401.9) Active confirmed Hypertension (18767093) Problem Colon cancer screening (V76.51) Active confirmed Colon cancer screening (669497328) Problem Constipation, unspecified constipation type (K59.00) Active confirmed 04286537 Problem Change in bowel habits (R19.4) Active confirmed [id number] PLAN OF TREATMENT No Information Insurance Providers Payer Name Payer Address Payer Phone Subscriber Number Group Number Insured Name Patient Relationship to Insured Coverage Start Date Coverage End Date MEDICARE OF [place] [address] [place] [address] [id number] HANNAH HEIDI Self - patient is the insured MEDEX ATTN CLAIMS [address] [place] [address] [id number] HEIDI YOUNG Self - patient is the insured MEDICAL (GENERAL) HISTORY Medical History History ICD Code Hypertension Denies RI,DM,CVA,Lung disease,renal dise ase Colonoscopies in [address] 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 Dodson at [facility], pacemaker and defibrillator--sees Dr. Jade DVT in right leg in 2003 Surgical History Surgery Date(Month/Year) 4V CABG and aortic valve replacement in 2013 as above 2013 Defibrillator Pacemaker
--- OUTSIDE RECORDS SUMMARY | 2024-06-03 08:10 | XMS_ITS | Patient Health Record ---
Author Organization [facility] Address [address] [place] [address] Care Team Providers Care Hospital Chaplain Name Role Phone Rc You MD Primary Care Provider Unavail able Yue Lobo Unavailable [phone] Scott Cline Unavailable [phone] Allergies Allergen (clinical drug ingredient) Drug/Non Drug Allergy documented on EMR Reaction Allergy Type Onset Date Status ramipril Altace headache Drug Allergy Active acetaminophen / oxycodone Percocet vomiting Drug Allergy Active tramadol Tramadol HCl neuropathy Drug Allergy Act javier atenolol Atenolol headache Drug Allergy Active Penicillin pain Drug Allergy Active Substance with 3-mmhuqee-5-methylgl utaryl-coenzyme A reductase inhibitor mechanism of action [...] Problem Acquired hammer toe of right foot (3737801725289869) Other hammer toe(s) (acquired), right foot (M20.41) Active confirmed Problem Acquired hammer toe of left foot (9040164821271204) Other hammer toe(s) (acquired), left foot (M20.42) Active confirmed Problem Intermittent claudication of bilateral lower limbs co-occurrent and due to atherosclerosis (61175880503202764 ) Atherosclerosis of [place] arteries of extremities with intermittent claudication, 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) Active confirmed Problem Atherosclerosis of [place] artery of both lower extremities, with unspecified presence of clinical manifestation (I70.203) Active confirmed Q7(A), Q8(2B), Q9(1B,2 C) Vital Signs Blood pressure diastolic 79 mm Hg 05/03/2024 Height 5 ft 10 in in 05/03/2024 Blood pressure systolic 121 mm Hg 05/03/2024 Weight 260 lbs 05/03/2024 BMI 37.3 kg/m2 05/03/2024 Procedures Procedure Date Ordered Date Performed Result Body Sit e 04511-FHJMWAT NAIL, 6 OR MORE 05/03/2024 N/A 15982-FURJ SKIN LESIONS, OVER 4 05/03/2024 N/A Encounters Encounter Location Date Provider Diagnosis [facility] [address] [place] [address] 07/07/2023 Scott Cline Tinea unguium B35.1 ; Pain in right toe(s) M79.674 ; Pain in left toe(s) M79.675 ; Skin disease L98.9 ; Atherosclerosis of [place] arteries of extremities with intermittent claudication, bilateral legs I70.213 ; Other hammer toe(s) (acquired), left foot M20.42 ; Other hammer toe(s) (acquired), right foot M20.41 and Xerosis cutis L85.[address] [address] 10/30/2023 Scott Cline Tinea unguium B35.1 ; Pain in right toe(s) M79.674 ; Pain in left toe(s) M79.675 ; Skin disease L98.9 ; Atherosclerosis of [place] arteries of extremities with intermittent claudication, bilateral legs I70.213 ; Other hammer toe(s) (acquired), left foot M20.42 ; Other hammer toe(s) (acquired), right foot M20.41 and Xerosis cutis L85.[address] [address] 02/02/2024 Scott Cline Tinea unguium B35.1 ; Pain in right toe(s) M79.674 ; Pain in left toe(s) M79.675 ; Skin disease L98.9 ; Atherosclerosis of [place] arteries of extremities with intermittent claudication, bilateral legs I70.213 ; Other hammer toe(s) (acquired), left foot M20.42 ; Other hammer toe(s) (acquired), right foot M20.41 and Xerosis cutis L85.[address] [address] 05/03/2024 Yue Lobo Atherosclerosis of [place] artery of both lower extremities, with unspecified [...] unguium (ICD-10 - B35.1) 05/03/2024 Atherosclerosis of [place] artery of both lower extremities, with unspecified [...] disease (ICD-10 - L98.9) 07/07/2023 Atherosclerosis of [place] arteries of extremities with intermittent claudication, bilateral legs (ICD-10 - I70.213) 10/30/2023 Atherosclerosis of [place] arteries of extremities with intermittent claudication, bilateral legs (ICD-10 - I70.213) 02/02/2024 Atherosclerosis of [place] arteries of extremities with intermittent claudication, bilateral [...] Treatment Pending Test Test Name Order Date 00548-YTGKDFD NAIL, 6 OR MORE 05/03/2024 32356-ADCO SKIN LESIONS, OVER 4 05/03/20 24 57906-BKWF SKIN LESIONS, 2 TO 4 08/07/19 21 15177-TGVM SKIN LESIONS, 2 TO 4 12/28/19 21 51832-BGPN SKIN LESIONS, 2 TO 4 05/02/20 21 12460-TZVQ SKIN LESIONS, 2 TO 4 09/06/19 22 Next Appt Details Provider Name:Yue Graham smiley, 09/20/2024 02:45:00 PM, [address] [facility], [place], [address], Insurance Providers Payer Name Payer Address Payer Phone Subscriber Number Group Number Insured Name Patient Relationship to Insured Coverage Start Date Coverage End Date Medicare National [employer] [address] [place] [address] [phone] [id number] Tad Villar Self - patient is the insured [employer] [address] [place] [address] [id number] Tad Villar Self - patient is the insured Medical (General) History Medical History History ICD Code Hypertension Heart condition Hyperlipidemia Ulcerative colitis Aortic stenosis Coronary artery disease Atrioventricular block Microscopic Hematuria Pneumonia Congestive heart failure DVT, thrombophlebitis Surgical History Surgery Date(Month/Year) cardiac pacemeker bypass surgery Defibrillator valve surgery
--- OUTSIDE RECORDS SUMMARY | 2024-06-03 08:10 | XMS_ITS ---
Author Organization Rc Vaishnavi Avelino [facility], FACP Address [address], [place] [id number] Care Team Providers Care Java Front End Web Developer Name Role Phone Rc You Primary Care [...] Location Date Provider Diagnosis Rc You DO, [address] [id number] 02/18/2024 Rc You Essential hypertensi on I10 ; S/P AVR (aortic valve replacement) Z95.2 ; Hyperlipidemia, unspecified hyperlipidemia type E78.5 ; Chronic systolic congestive heart failure I50.22 and Coronary artery disease involving [place] coronary artery of [place] heart without angina pectoris I25.10 ASSESSMENTS Encounter Date Diagnosis Assessment Notes Treatment Notes Treatment Clinical Notes 02/18/2024 Essential hypertension (ICD-10 - I10) 02/18/2024 S/P AVR (aortic valv e replacement) (ICD-10 - Z95.2) 02/18/2024 Hyperlipidemia, unspecified hyperlipidemia type (ICD-10 - E78.5) 02/18/2024 Chronic systolic congestive heart failure (ICD-10 - I50.22) 02/18/2024 Coronary artery disease involving [place] coronary artery of [place] heart without angina pectoris (ICD-10 - I25.10) [...] Up: 6 Months, Reason: follow up visit Progress Notes * Examination Category Sub-Category Detail [...]
--- OUTSIDE RECORDS SUMMARY | 2024-06-03 08:10 | XMS_ITS ---
Author Organization Rc You DO, [facility] Address [address] [place], [place] [id number] Care Team Providers Care Merchandise Coordinator Name Role Phone Rc You Primary Care Provider REASON FOR VISIT Message SOCIAL HISTORY Sex Assigned At : Social History Observation Description Sex Assigned At Male Encounters Encounter Location Date Provider Diagnosis Rc You DO, FACP [address] [place], [place] [id number] 05/07/2024 Rc You PLAN OF TREATMENT No Information
--- OUTSIDE RECORDS SUMMARY | 2024-06-03 08:10 | XMS_ITS ---
Author Organization [facility] Vaishnavi Avelino [facility]AP[facility], FACP Address [address], [place] [id number] Care Team Providers Care Automation Tester Name Role Phone Rc You Primary Care [...] Encounters Encounter Location Date Provider Diagnosis Rc Vaishnavi You DO, [address] [id number] 08/13/2023 Rc You Chronic systolic congestive heart failure I50.22 ; Coronary artery disease involving [place] coronary artery of [place] heart without angina pectoris I25.10 ; S/P AVR (aortic valve replacement) Z95.2 and Hyperlipidemia, unspecified hyperlipidemia type E78.5 ASSESSMENTS Encounter Date Diagnosis Assessment Notes Treatment Notes Treatment Clinical Notes 08/13/2023 Chronic systolic congestive heart failure (ICD-10 - I50.22) 08/13/2023 Coronary artery disease involving [place] coronary artery of [place] heart without angina pectoris (ICD-10 - I25.10) [...] General Examination GENERAL APPEARANCE: in no ac ione distress, well developed, well nourished HEAD: normocephalic, atrau matic HEART: no murmurs, regular rate and rhythm, S1, S2 normal with a mechanical S2 click LUNGS: clear to auscultatio n bilaterally ABDOMEN: normal, bowel sounds present, soft, nontender, nondistended SKIN: warm and dry EXTREMITIES: no edema PSYCH: alert, oriented, cog nitive function intact
--- OUTSIDE RECORDS SUMMARY | 2024-06-03 08:10 | XMS_ITS | Patient Health Record ---
Author Organization Rc Vaishnavi Avelino DO, FACP Address [address], [place] [id number] Care Team Providers Care Supervisor Home [employer] Name Role Phone [facility] You Primary [facility] [...] Active RESULTS Component Value Reference Range Notes INR WHOLE BLOOD POC Reviewed date:06/12/2023 02:58:30 PM Interpretation:Therapeutic Performing Lab:[facility], [address] [place] [phone] Notes/Report: PT, INR - Anti Coag Clinic 2.9 0.9-1.1 METER #: [id number] INTERNATIONAL NORMALIZED RATIO (INR) REFERENCE RANGES Reference [...] OC Reviewed date:06/12/2023 02:58:30 PM Interpretation:Therapeutic Performing Lab:[facility], [address] [place] [phone] Notes/Report: Prothrombin Time Whole Bld POC 34.4 11.1-13.5 sec INR WHOLE BLOOD POC Reviewed date:06/26/2023 12:31:11 PM Interpretation:Supratherapeutic Performing Lab:[facility], [address] [place] [phone] Notes/Report: PT, INR - Anti Coag Clinic 3.6 0.9-1.1 METER #: [id number] INTERNATIONAL NORMALIZED RATIO (INR) REFERENCE RANGES Reference [...] OC Reviewed date:06/26/2023 12:31:11 PM Interpretation:Supratherapeutic Performing Lab:[facility], [address] [place] [phone] Notes/Report: Prothrombin Time Whole Bld POC 43.0 11.1-13.5 sec Complete Blood Count Auto Di ff Reviewed date:07/11/2023 03:01:39 AM Interpretation:Abnormal Performing Lab:[address] [address] Notes/Report: White Blood Count 7.6 4.8-10.8 X10*3/uL [...] Panel Reviewed date:07/11/2023 03:01:39 AM Interpretation:Normal Performing Lab:[address] [address] Notes/Report: Sodium 142 135-145 mmol/L Potassium 3.9 3.3-5.1 mmol/L Chloride 104 96-108 mmol/L Carbon Dioxide 28 22-29 mmol/L Anion Gap 14 12-20 Blood Urea Nitrogen 16 9-16 mg/dL Creatinine 1.09 0.5-1.4 mg/dL Estimated Glomerular Filt Rate > 60 NOTE: For -Kazakh individuals, multiply the result by 1.210. Chronic Kidney Disease: Estimated GFR < 60 mL/min/1.73m2 Severe Kidney Disease: Estimated GFR < 15 mL/min/1.73m2 Glucose Random 105 60-115 mg/dL Calcium 9.4 8.4-10.2 mg/dL B Type Natriuretic Peptide Reviewed date:07/11/2023 03:01:39 AM Interpretation:Abnormal Performing Lab:[address] [address] Notes/Report: B Type Natriuretic Peptide 148 <100 pg/mL For those patients who are being treated with Natrecor (nesiritide, recombinant BNP), BNP testing should be performed at least two hours post treatment in order to ensure that only endogenous levels of BNP are detected. INR WHOLE BLOOD POC Reviewed date:07/11/2023 03:02:09 AM Interpretation:Therapeutic Performing Lab:[facility], [address] [place] [address] Notes/Report: PT, INR - Anti Coag Clinic 3.1 0.9-1.1 METER #: [id number] INTERNATIONAL NORMALIZED RATIO (INR) REFERENCE RANGES Reference [...] OC Reviewed date:07/11/2023 03:02:29 AM Interpretation:Therapeutic Performing Lab:[facility], [address] [place] [phone] Notes/Report: Prothrombin Time Whole Bld POC 36.9 11.1-13.5 sec INR WHOLE BLOOD POC Reviewed date:07/24/2023 12:26:18 PM Interpretation:Therapeutic Performing Lab:[facility], [address] [place] [address] Notes/Report: PT, INR - Anti Coag Clinic 2.7 0.9-1.1 METER #: [id number] INTERNATIONAL NORMALIZED RATIO (INR) REFERENCE RANGES Reference [...] OC Reviewed date:07/24/2023 12:26:51 PM Interpretation:Therapeutic Performing Lab:[facility], [address] [place] [address] Notes/Report: Prothrombin Time Whole Bld POC 32.5 11.1-13.5 sec INR WHOLE BLOOD POC Reviewed date:08/07/2023 06:22:09 PM Interpretation:Therapeutic Performing Lab:[facility], [address] [place] [address] Notes/Report: PT, INR - Anti Coag Clinic 2.7 0.9-1.1 METER #: [id number] INTERNATIONAL NORMALIZED RATIO (INR) REFERENCE RANGES Reference [...] OC Reviewed date:08/07/2023 06:22:09 PM Interpretation:Therapeutic Performing Lab:[address] [address] Notes/Report: Prothrombin Time Whole Bld POC 31.8 11.1-13.5 sec INR WHOLE BLOOD POC Reviewed date:08/21/2023 10:14:55 AM Interpretation:Subtherapeutic Performing Lab:[address] [address] Notes/Report: PT, INR - Anti Coag Clinic 1.7 0.9-1.1 METER #: [id number] INTERNATIONAL NORMALIZED RATIO (INR) REFERENCE RANGES Reference [...] OC Reviewed date:08/21/2023 10:14:38 AM Interpretation:Subtherapeutic Performing Lab:[address] [address] Notes/Report: Prothrombin Time Whole Bld POC 20.6 11.1-13.5 sec INR WHOLE BLOOD POC Reviewed date:09/04/2023 04:05:12 PM Interpretation:Subtherapeutic Performing Lab:[facility], [address] [place] [address] Notes/Report: PT, INR - Anti Coag Clinic 2.4 0.9-1.1 METER #: [id number] INTERNATIONAL NORMALIZED RATIO (INR) REFERENCE RANGES Reference [...] OC Reviewed date:09/04/2023 04:05:12 PM Interpretation:Subtherapeutic Performing Lab:[address] [address] Notes/Report: Prothrombin Time Whole Bld POC 29.3 11.1-13.5 sec INR WHOLE BLOOD POC Reviewed date:09/18/2023 01:21:34 PM Interpretation:Subtherapeutic Performing Lab:[facility], [address] [place] [address] Notes/Report: PT, INR - [facility]ag Clinic 1.8 0.9-1.1 METER #: [id number] INTERNATIONAL NORMALIZED RATIO (INR) REFERENCE RANGES Reference [...] OC Reviewed date:09/18/2023 01:21:34 PM Interpretation:Subtherapeutic Performing Lab:[facility], [address] [place] [phone] Notes/Report: Prothrombin Time Whole Bld POC 21.9 11.1-13.5 sec INR WHOLE BLOOD POC Reviewed date:10/02/2023 12:32:11 PM Interpretation:Subtherapeutic Performing Lab:[facility] [address] [place] [phone] Notes/Report: PT, INR - Anti Coag Clinic 2.2 0.9-1.1 METER #: [id number] INTERNATIONAL NORMALIZED RATIO (INR) REFERENCE RANGES Reference [...] OC Reviewed date:10/02/2023 12:32:11 PM Interpretation:Subtherapeutic Performing Lab:[facility], [address] [place] [phone] Notes/Report: Prothrombin Time Whole Bld POC 26.0 11.1-13.5 sec INR WHOLE BLOOD POC Reviewed date:10/16/2023 05:40:27 PM Interpretation:Subtherapeutic Performing Lab:[facility], [address] [place] [phone] Notes/Report: PT, INR - Anti Coag Clinic 1.6 0.9-1.1 METER #: [id number] INTERNATIONAL NORMALIZED RATIO (INR) REFERENCE RANGES Reference [...] OC Reviewed date:10/16/2023 05:40:27 PM Interpretation:Subtherapeutic Performing Lab:[facility], [address] [place] [phone] Notes/Report: Prothrombin Time Whole Bld POC 19.1 11.1-13.5 sec INR WHOLE BLOOD POC Reviewed date:10/30/2023 11:04:40 AM Interpretation:Subtherapeutic Performing Lab:[facility], [address] [place] [phone] Notes/Report: PT, INR - Anti Coag Clinic 1.8 0.9-1.1 METER #: [id number] INTERNATIONAL NORMALIZED RATIO (INR) REFERENCE RANGES Reference [...] OC Reviewed date:10/30/2023 11:04:41 AM Interpretation:Subtherapeutic Performing Lab:[facility], [address] [place] [phone] Notes/Report: Prothrombin Time Whole Bld POC 21.1 11.1-13.5 sec INR WHOLE BLOOD POC Reviewed date:11/06/2023 09:49:33 AM Interpretation:Therapeutic Performing Lab:[facility], [address] [place] [phone] Notes/Report: PT, INR - Anti Coag Clinic 2.5 0.9-1.1 METER #: [id number] INTERNATIONAL NORMALIZED RATIO (INR) REFERENCE RANGES Reference [...] OC Reviewed date:11/06/2023 09:49:33 AM Interpretation:Therapeutic Performing Lab:[address] [phone] Notes/Report: Prothrombin Time Whole Bld POC 30.0 11.1-13.5 sec INR WHOLE BLOOD POC Reviewed date:11/20/2023 05:07:58 PM Interpretation:Therapeutic Performing Lab:[facility] [address] [address] Notes/Report: PT, INR - Anti Coag Clinic 3.4 0.9-1.1 METER #: [id number] INTERNATIONAL NORMALIZED RATIO (INR) REFERENCE RANGES Reference [...] OC Reviewed date:11/20/2023 05:07:58 PM Interpretation:Therapeutic Performing Lab:[address] [address] Notes/Report: Prothrombin Time Whole Bld POC 40.3 11.1-13.5 sec INR WHOLE BLOOD POC Reviewed date:12/04/2023 02:13:26 PM Interpretation:Subtherapeutic Performing Lab:[address] [address] Notes/Report: PT, INR - Anti Coag Clinic 2.1 0.9-1.1 METER #: [id number] INTERNATIONAL NORMALIZED RATIO (INR) REFERENCE RANGES Reference [...] OC Reviewed date:12/04/2023 02:13:26 PM Interpretation:Subtherapeutic Performing Lab:[address] [address] Notes/Report: Prothrombin Time Whole Bld POC 24.8 11.1-13.5 sec INR WHOLE BLOOD POC Reviewed date:12/23/2023 09:20:14 AM Interpretation:Subtherapeutic Performing Lab:[address] [place] [address] Notes/Report: PT, INR - Anti Coag Clinic 2.4 0.9-1.1 METER #: [id number] INTERNATIONAL NORMALIZED RATIO (INR) REFERENCE RANGES Reference [...] OC Reviewed date:12/23/2023 09:20:14 AM Interpretation:Subtherapeutic Performing Lab:[address] [address] Notes/Report: Prothrombin Time Whole Bld POC 29.1 11.1-13.5 sec INR WHOLE BLOOD POC Reviewed date:01/08/2024 05:36:01 PM Interpretation:Subtherapeutic Performing Lab:[address] [address] Notes/Report: PT, INR - Anti Coag Clinic 2.0 0.9-1.1 METER #: [id number] INTERNATIONAL NORMALIZED RATIO (INR) REFERENCE RANGES Reference [...] OC Reviewed date:01/08/2024 05:36:52 PM Interpretation:Subtherapeutic Performing Lab:[address] [address] Notes/Report: Prothrombin Time Whole Bld POC 24.2 11.1-13.5 sec INR WHOLE BLOOD POC Reviewed date:01/22/2024 04:15:39 PM Interpretation:Subtherapeutic Performing Lab:[address] [place] [address] Notes/Report: PT, INR - Anti Coag Clinic 2.4 0.9-1.1 METER #: [id number] INTERNATIONAL NORMALIZED RATIO (INR) REFERENCE RANGES Reference [...] OC Reviewed date:01/22/2024 04:15:39 PM Interpretation:Subtherapeutic Performing Lab:[address] [address] Notes/Report: Prothrombin Time Whole Bld POC 28.7 11.1-13.5 sec INR WHOLE BLOOD POC Reviewed date:02/06/2024 12:01:20 PM Interpretation:Subtherapeutic Performing Lab:[address] [address] Notes/Report: PT, INR - Anti Coag Clinic 1.8 0.9-1.1 METER #: [id number] INTERNATIONAL NORMALIZED RATIO (INR) REFERENCE RANGES Reference [...] OC Reviewed date:02/06/2024 12:01:20 PM Interpretation:Subtherapeutic Performing Lab:[address] [address] Notes/Report: Prothrombin Time Whole Bld POC 21.5 11.1-13.5 sec INR WHOLE BLOOD POC Reviewed date:02/19/2024 11:14:27 AM Interpretation:Subtherapeutic Performing Lab:[facility] [address] Notes/Report: PT, INR - Anti Coag Clinic 1.8 0.9-1.1 METER #: [id number] INTERNATIONAL NORMALIZED RATIO (INR) REFERENCE RANGES Reference [...] OC Reviewed date:02/19/2024 11:14:27 AM Interpretation:Subtherapeutic Performing Lab:[address] [address] Notes/Report: Prothrombin Time Whole Bld POC 21.1 11.1-13.5 sec Complete Blood Count Auto Di ff Reviewed date:02/20/2024 09:36:20 AM Interpretation:Abnormal Performing Lab:[address] [address] Notes/Report: White Blood Count 6.9 4.8-10.8 X10*3/uL [...] NRBC Abs Auto 0.000 0.0-0.012 X10*3/uL Comprehensive [place]. Panel Fa st Reviewed date:02/20/2024 09:36:02 AM Interpretation:Abnormal Performing Lab:[facility], [address] [place] [phone] Notes/Report: Sodium 141 135-145 mmol/L Potassium 3.9 3.3-5.1 mmol/L Chloride 104 96-108 mmol/L Carbon Dioxide 31 22-29 mmol/L Anion Gap 10 12-20 Blood Urea Nitrogen 19 9-16 mg/dL Creatinine 1.25 0.5-1.4 mg/dL Estimated Glomerular Filt Rate 55 NOTE: For -Kazakh individuals, multiply the result by 1.210. Chronic [...] Peptide Reviewed date:02/20/2024 09:36:02 AM Interpretation:Abnormal Performing Lab:[facility], [address] [place] [phone] Notes/Report: B Type Natriuretic Peptide 101 <100 pg/mL For those patients who are being treated with Natrecor (nesiritide, recombinant BNP), BNP testing should be performed at least two hours post treatment in order to ensure that only endogenous levels of BNP are detected. Lipid Panel Reviewed date:02/20/2024 09:36:02 AM Interpretation:Abnormal Performing Lab:[facility], [address] [place] [phone] Notes/Report: Triglycerides 88 <150 mg/dL Desirable Triglyceride: [...] Hormone Reviewed date:02/20/2024 09:36:02 AM Interpretation:Normal Performing Lab:[facility], [address] [place] [address] Notes/Report: Thyroid Stimulating Hormone 2.86 0.32-4.0 uIU/ mL Note: A sustained TSH level above 2.5 uIU/mL may warrant further investigation. TSH 3rd Generation ([facility]) INR WHOLE BLOOD POC Reviewed date:02/26/2024 12:07:23 PM Interpretation:Subtherapeutic Performing Lab:[facility], [address] [place] [address] Notes/Report: PT, INR - Anti Coag Clinic 2.4 0.9-1.1 METER #: [id number] INTERNATIONAL NORMALIZED RATIO (INR) REFERENCE RANGES Reference [...] OC Reviewed date:02/26/2024 12:07:23 PM Interpretation:Subtherapeutic Performing Lab:[facility], [address] [place] [phone] Notes/Report: Prothrombin Time Whole Bld POC 28.6 11.1-13.5 sec INR WHOLE BLOOD POC Reviewed date:03/04/2024 09:09:11 AM Interpretation:Therapeutic Performing Lab:[facility], [address] [place] [address] Notes/Report: PT, INR - Anti Coag Clinic 2.5 0.9-1.1 METER #: [id number] INTERNATIONAL NORMALIZED RATIO (INR) REFERENCE RANGES Reference [...] OC Reviewed date:03/04/2024 09:09:11 AM Interpretation:Therapeutic Performing Lab:[facility], [address] [place] [address] Notes/Report: Prothrombin Time Whole Bld POC 29.8 11.1-13.5 sec INR WHOLE BLOOD POC Reviewed date:03/18/2024 11:44:06 AM Interpretation:Subtherapeutic Performing Lab:[facility], [address] [place] [phone] Notes/Report: PT, INR - Anti Coag Clinic 2.3 0.9-1.1 METER #: [id number] INTERNATIONAL NORMALIZED RATIO (INR) REFERENCE RANGES Reference [...] OC Reviewed date:03/18/2024 11:44:06 AM Interpretation:Subtherapeutic Performing Lab:[facility], [address] [place] [phone] Notes/Report: Prothrombin Time Whole Bld POC 27.6 11.1-13.5 sec INR WHOLE BLOOD POC Reviewed date:04/01/2024 11:18:04 AM Interpretation:Subtherapeutic Performing Lab:[facility], [address] [place] [phone] Notes/Report: PT, INR - Anti Coag Clinic 1.5 0.9-1.1 METER #: [id number] INTERNATIONAL NORMALIZED RATIO (INR) REFERENCE RANGES Reference [...] OC Reviewed date:04/01/2024 11:18:04 AM Interpretation:Subtherapeutic Performing Lab:[facility], [address] [place] [phone] Notes/Report: Prothrombin Time Whole Bld POC 17.5 11.1-13.5 sec INR WHOLE BLOOD POC Reviewed date:04/08/2024 12:30:51 PM Interpretation:Therapeutic Performing Lab:[facility], [address] [place] [phone] Notes/Report: PT, INR - Anti Coag Clinic 3.3 0.9-1.1 METER #: [id number] INTERNATIONAL NORMALIZED RATIO (INR) REFERENCE RANGES Reference [...] OC Reviewed date:04/08/2024 12:30:51 PM Interpretation:Therapeutic Performing Lab:[facility], [address] [place] [address] Notes/Report: Prothrombin Time Whole Bld POC 40.1 11.1-13.5 sec INR WHOLE BLOOD POC Reviewed date:04/22/2024 09:03:12 AM Interpretation:Subtherapeutic Performing Lab:[facility], [address] [place] [phone] Notes/Report: PT, INR - Anti Coag Clinic 1.9 0.9-1.1 METER #: [id number] INTERNATIONAL NORMALIZED RATIO (INR) REFERENCE RANGES Reference [...] OC Reviewed date:04/22/2024 09:03:12 AM Interpretation:Subtherapeutic Performing Lab:[facility], [address] [place] [phone] Notes/Report: Prothrombin Time Whole Bld POC 22.5 11.1-13.5 sec INR WHOLE BLOOD POC Reviewed date:05/06/2024 10:42:32 AM Interpretation:Subtherapeutic Performing Lab:[facility], [address] [place] [phone] Notes/Report: PT, INR - Anti Coag Clinic 2.2 0.9-1.1 METER #: [id number] INTERNATIONAL NORMALIZED RATIO (INR) REFERENCE RANGES Reference [...] OC Reviewed date:05/06/2024 10:42:32 AM Interpretation:Subtherapeutic Performing Lab:[facility], [address] [place] [phone] Notes/Report: Prothrombin Time Whole Bld POC 26.0 11.1-13.5 sec INR WHOLE BLOOD POC Reviewed date:05/20/2024 12:13:06 PM Interpretation:Subtherapeutic Performing Lab:[facility], [address] [place] [phone] Notes/Report: PT, INR - Anti Coag Clinic 2.1 0.9-1.1 METER #: [id number] INTERNATIONAL NORMALIZED RATIO (INR) REFERENCE RANGES Reference [...] OC Reviewed date:05/20/2024 12:13:06 PM Interpretation:Subtherapeutic Performing Lab:[facility], [address] [place] [phone] Notes/Report: Prothrombin Time Whole Bld POC 25.3 [...] hritis, unspecified site (M19.90) Referral Organization Rc Wyatt FACP Referring Provider First Name Rc Referring Provider Last Name Avelino Referring Provider Speciality Internal M edicine Referred Provider Barrington Cano Referred Provider Specialty Rheumatology General Notes Larisa Macario 11:17:49 AM EST > referral faxed; patient aware specialist's office will contact him., Larisa Macario 05/07/2024 04:25:08 PM EST > [facility] [place] is not accepting new patients., Rc You 05/07/2024 05:40:16 PM EST > [facility] 05/11/2024 09:24:10 AM EST > Patient called and said he will not go to [facility] and he will figure something else out. [...] Notes Problem Essential hypertension (I10) Active confirmed 21116880 Problem S/P AVR (aortic valve replacement) (Z95.2) Active confirmed 4112902888273 Problem Hyperlipidemia, unspecified hyperlipidemia type (E78.5) Active confirmed 60543584 Problem Chronic systolic congestive heart failure (I50.22) Active confirmed 421180742 Problem Coronary artery disease involving [place] coronary artery of [place] heart without angina pectoris (I25.10) Active confirmed 79586240 Problem Age-related cataract of both eyes, unspecified age-related cataract type (H25.9) Active confirmed 12478855 Problem Unspecified osteoarthritis, unspecified site (M19.90) Active confirmed Osteoarthritis (643779679) VITAL SIGNS Blood pressure diastolic 76 mm Hg 02/18/2024 Height 69 in 02/18/2024 Blood pressure systolic 152 mm Hg 02/18/2024 Weight 268 lbs 02/18/2024 BMI 39.57 kg/m2 02/18/2024 Encounters Encounter Location Date Provider Diagnosis Rc You DO [facility] [address], [place] [id number] 08/13/2023 Rc You Chronic systolic congestive heart failure I50.22 ; Coronary artery disease involving [place] coronary artery of [place] heart without angina pectoris I25.10 ; S/P AVR (aortic valve replacement) Z95.2 and Hyperlipidemia, unspecified hyperlipidemia type E78.5 Rc You DO, [facility] [address], [place] [id number] 02/18/2024 Rc You Essential hypertensi on I10 ; S/P AVR (aortic valve replacement) Z95.2 ; Hyperlipidemia, unspecified hyperlipidemia type E78.5 ; Chronic systolic congestive heart failure I50.22 and Coronary artery disease involving [place] coronary artery of [place] heart without angina pectoris I25.10 Rc Vaishnavi Avelino ZAP[place], [facility] [address], [place] [id number] 06/27/2023 Rc You Rc Riggins Avelino , [facility] [address], [place] [id number] 05/07/2024 Rc You ASSESSMENTS Encounter Date Diagnosis Assessment Notes Treatment Notes Treatment Clinical Notes 08/13/2023 Chronic systolic congestive heart failure (ICD-10 - I50.22) 08/13/2023 Coronary artery disease involving [place] coronary artery of [place] heart without angina pectoris (ICD-10 - I25.10) 02/18/2024 Essential hypertension (ICD-10 - I10) 02/18/2024 S/P AVR (aortic valv e replacement) (ICD-10 - Z95.2) 08/13/2023 S/P AVR (aortic valv e replacement) (ICD-10 - Z95.2) 02/18/2024 Hyperlipidemia, unspecified hyperlipidemia type (ICD-10 - E78.5) 08/13/2023 Hyperlipidemia, unspecified hyperlipidemia type (ICD-10 - E78.5) 02/18/2024 Chronic systolic congestive heart failure (ICD-10 - I50.22) 02/18/2024 Coronary artery disease involving [place] coronary artery of [place] heart without angina pectoris (ICD-10 - I25.10) PLAN OF TREATMENT No Information Insurance Providers Payer Name Payer Address Payer Phone Subscriber Number Group Number Insured Name Patient Relationship to Insured Coverage Start Date Coverage End Date MEDICARE [address] [facility] [phone] [id number] Tad Villar Self - patient is the insured MED[employer] [address] [place] [address] [id number] Tad Villar Self - patient is the [...]
[2024-06-03 08:26] LABS: Prothrombin Time Whole Bld POC 18.8 sec (11.1-13.5); ~PT, ~INR - Anti Coag Clinic 1.6 (0.9-1.1)
--- NOTE | 2024-06-03 08:27 | MHC.OFFVISCO ---
Intake Intake Visit Reasons: Anticoagulation Allergies Penicillins [PENICILLINS] Allergy (Severe, Verified 06/03/24 08:07) HIVES Medication List - Last Reconciled 06/03/24 by Destinee Pascal RN atorvastatin 40 mg PO DAILY celecoxib (Celebrex) 100 mg PO BID furosemide 80mg in the AM and 40mg in the PM orally daily; 30 days lisinopril 40 mg PO DAILY metoprolol succinate ER 50 mg PO DAILY multivit,calc,yjc-CU-S0-lycop 240 mcg-30 mcg- 300 mcg (One-A-Day Men's Complete) 1 tab PO DAILY warfarin 5 mg See Protocol PO DAILY Nursing Note INR 1.6 out of therapeutic range- ate a large green salad, has not had usual amt of wine, enc to be careful to no thave too much ETOH due to risk of bleeding with the celebrex Medications and supplements reviewed Patient status: Pt taking celebrex - had 3 tabs so far- he was in so much pain he took 2 tabs first day and 1 tab this am, his aspirin and tyelnol was d/c by MD. Medications or supplements: stopping atorvastatin x 1 week due to aches and pains Diet: good Denies any signs and symptoms of bleeding or clotting or unusual bruising Bleeding, bruising, clotting discussed Nutritional guidance given: avoid greens 2 days, eat orange or reds to help raise the INR Dose: 5mg x 2 days this week then resume usual dose 5mg x 1 day/ 2.5mg x 6 days due to onset of celebrex F/U INR Date : 06/08/25 ?? Patient verbalizing understanding of instructions given. Anti-Coag Initial Assessment Social Hx Patient Tobacco Use Status: Former Tobacco user alcohol intake: current Alcohol intake frequency: a few times a month Coding Level of Care Code Est Patient Level 1 Diagnoses Current use of anticoagulant therapy Z79.01 Results AMB INR Fingerstick AMB INR Fingerstick 1.6 Last Edit by Destinee Pascal RN on 06/03/24 08:17 MANUAL ENTRY Assessment & Plan Assessment & Plan (1) Current use of anticoagulant therapy: Code(s): Z79.01 - assisted (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
== END 2024-06-03 08:33 | disposition home or self-care (01) ==
LOC: HO.ACS 08:06
PROVIDERS: PCP Internal Medicine; Visit Provider Internal Medicine
DX: Z79.01 Long term (current) use of anticoagulants (principal)

== ENCOUNTER → 2024-06-03 08:06 | Outpatient (BNVA) | payer MEDICARE, SELFPAY | PROVIDERS: PCP Internal Medicine; Visit Provider Internal Medicine | DX: Z95.2 Presence of prosthetic heart valve (principal); Z79.01 Long term (current) use of anticoagulants; Z51.81 Encounter for therapeutic drug level monitoring | CPT/HCPCS: 85610; 99211 ==

== ENCOUNTER 2024-06-07 08:14 | Outpatient (AMB) | payer MEDICARE, SELFPAY ==
--- OUTSIDE RECORDS SUMMARY | 2024-06-07 08:24 | XMS_ITS ---
Author Organization [facility] Address [address] [place] [address] Care Team Providers Care Level Vial Grinder Name Role Phone Rc You MD Primary Care Provider Unavail able Yue Lobo Unavailable [phone] Allergies Allergen (clinical drug ingredient) Drug/Non Drug Allergy documented on EMR Reaction Allergy Type Onset Date Status ramipril Altace headache Drug Allergy Active acetaminophen / oxycodone Percocet vomiting Drug Allergy Active tramadol Tramadol HCl neuropathy Drug Allergy Act javier atenolol Atenolol headache Drug Allergy Active Penicillin pain Drug Allergy Active Substance with 9-hbpnhuo-7-methylgl utaryl-coenzyme A reductase inhibitor mechanism of action [...] W/U Status Risk Notes Problem Atherosclerosis of [place] artery of both lower extremities, with unspecified presence of clinical manifestation (I70.203) Active confirmed Q7(A), Q8(2B), Q9(1B,2C) Vital Signs Height 5 ft 10 in in 05/03/2024 Weight 260 lbs 05/03/2024 BMI 37.3 kg/m2 05/03/2024 Blood pressure systolic 121 mm Hg 05/03/20 24 Blood pressure diastolic 79 mm Hg 024 Procedures Procedure Date Ordered Date Performed Result Body Sit e 77693-PDWXAET NAIL, 6 OR MORE 05/03/2024 N/A 87801-NGTV SKIN LESIONS, OVER 4 05/03/2024 N/A Encounters Encounter Location Date Provider Diagnosis [facility] [address] [place] [address] 05/03/2024 Yue Lobo Atherosclerosis of [place] artery of both lower extremities, with unspecified presence of clinical manifestation I70.203 ; Tinea unguium B35.1 ; Pain in right toe(s) M79.674 and Pain in left toe(s) M79.675 Assessments Encounter Date Diagnosis (ICD Code) Assessment Notes Treatment Notes Treatment Clinical Notes Section Notes 05/03/2024 Atherosclerosis of [place] artery of both lower extremities, with unspecified presence of clinical manifestation (ICD-10 - I70.203) Q7(A), Q8(2B), Q9(1B,2C) 05/03/2024 Tinea unguium (ICD-10 - B35.1) 05/03/2024 Pain in right toe(s) (ICD-10 - M79.674) 05/03/2024 Pain in left toe(s) (ICD-10 - M79.675) Plan Of Treatment Pending Test Test Name Order Date 52818-SYLVSKF NAIL, 6 OR MORE 05/03/2024 05447-PRAL SKIN LESIONS, OVER 4 05/03/20 24 Next Appt Details Follow Up: prn, Reason: Provider Name:Yue Graham smiley, 09/20/2024 02:45:00 PM, [address] [place], [address], Procedure Notes * Category Sub-Category Detail Notes [...] use of a nail nipper and/or dremel-type snag grinder, to a more viable healthy nail plate or bed tissue 6-10. Silver nitrate used for any petechial bleeding as necessary. Definitive antifungal treatment options have been reviewed and discussed with the patient. The patient chooses, no pharmaceutical tx - 73153 Keratoma Treatment Parring or Cutting o f Benign Hyperkeratotic Lesion(s) (-57) More than 4 Lesions - The Benign hyperkeratotic lesions, as described in exam, were pared, and/or cut utilizing a sterile 15 blade, tissue nippers, and/or dremel - 41939, Q8 Progress Notes * Tad VILLARDOB:1940 (84 yo M)Acc No.[id number]:05/03/2024 Progress Note Patient:?Tad VILLAR Provider:?Yue Lobo DPM :1940???Age:84 Y???Sex:Male Sam e:05/03/2024 Address:[address] [place], [place] [id number] Pcp:Rc You MD Subjective: * Chief Complaints: [...] no, none. ?Exercise: yes, exercise/ cardiac rehab [facility] [place]. ?Marital status: single. 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 * Medications:?TakingAspirin A dult Low [...] 1.?Tinea unguium - B35.1 (Pr imary)???2.?Atherosclerosis of [place] artery of both lower extremities, with unspecified presence of clinical manifestation - I70.203???Notes :Q7(A), Q8(2B), Q9(1B,2C)???3.?Pain in right toe(s) - M79.674???4.?Pain in left toe(s) - M79.675??? Plan: * Treatment: 2.?Atherosclerosis of [place] artery of both lower extremities, with unspecified presence of clinical manifestation?Procedure: 27976-OXZK SKIN LESIONS, OVER 4 * Procedures:?Debride Nail [...] use of a nail nipper and/or dremel-type snag grinder, to a more viable healthy nail plate or bed tissue 6-10. Silver nitrate used for any petechial bleeding as necessary. Definitive antifungal treatment options have been reviewed and discussed with the patient. The patient chooses, no pharmaceutical tx - 81285.?Keratoma Treatment:?Parring or Cutting of Benign Hyperkeratotic Lesion(s)?(-57) More than 4 Lesions - The Benign hyperkeratotic lesions, as described in exam, were pared, and/or cut utilizing a sterile 15 blade, tissue nippers, and/or dremel - 83013, Q8.? * Procedure Codes:?70713 DEBRI DE NAIL, 6 OR MORE, Modifiers: XS 66239 TRIM SKIN LESIONS, OVER 4, Modifiers: XS , Q8 * Follow Up:?prn * Images: * Sign off status: Completed true * Provider:?Yue Lobo DPM Date:?07/03/2023 Generated for Gallo moralez/Alvin/Tyrese on:?06/07/2024 08:24 AM EST History and Physical Notes * [...]
--- OUTSIDE RECORDS SUMMARY | 2024-06-07 08:24 | XMS_ITS ---
Author Organization [facility] Address [address] [place] [address] Care Team Providers Care Sql Server Dba Name Role Phone Rc You MD Primary Care Provider Unavail able Yue Lobo Unavailable [phone] Scott Cline Unavailable [phone] Allergies Allergen (clinical drug ingredient) Drug/Non Drug Allergy documented on EMR Reaction Allergy Type Onset Date Status ramipril Altace headache Drug Allergy Active acetaminophen / oxycodone Percocet vomiting Drug Allergy Active tramadol Tramadol HCl neuropathy Drug Allergy Act javier atenolol Atenolol headache Drug Allergy Active Penicillin pain Drug Allergy Active Substance with 4-zuhexcw-8-methylgl utaryl-coenzyme A reductase inhibitor mechanism of action [...] 10/30/2023 Encounters Encounter Location Date Provider Diagnosis [facility] [address] [address] 10/30/2023 Scott Cline Tinea unguium B35.1 ; Pain in right toe(s) M79.674 ; Pain in left toe(s) M79.675 ; Skin disease L98.9 ; Atherosclerosis of [place] arteries of extremities with intermittent claudication, bilateral [...] disease (ICD-10 - L98.9) 10/30/2023 Atherosclerosis of [place] arteries of extremities with intermittent claudication, bilateral legs (ICD-10 - I70.213) 10/30/2023 Other hammer toe(s) (acquired), left foot (ICD-10 - M20.42) 10/30/2023 Other hammer toe(s) (acquired), right foot (ICD-10 - M20.41) 10/30/2023 Xerosis cutis (ICD-10 - L85.3) Plan Of Treatment Next Appt Details Follow Up: 3 Months, Reason: Provider Name:Yue reis, 09/20/2024 02:45:00 PM, [address] [place], [address], Procedure Notes * Category Sub-Category Detail Notes [...] as necessary. Patient chooses, no pharmaceutical tx (05688) Keratoma Treatment Parring or Cutting o f Benign Hyperkeratotic Lesion(s) 97976 (2-4 Lesions) - The Benign hyperkeratotic lesions, as described above were pared, and/or cut utilizing a sterile #15 blade, tissue nippers, and/or dremel, Q8 Progress Notes * Tad VILLARDOB:1940 (83 yo M)Acc No.[id number]:10/30/2023 Progress Note Patient:?Tad Villar Provider:?Scott Cline DPM :1940???Age:83 Y???Sex:Male Sam e:10/30/2023 Address:[address] [place], [place] [id number] Pcp:Rc You MD Subjective: * Chief Complaints: [...] Children, none. ?Exercise: yes, exercise/ cardiac rehab [facility] [place]. ?Marital status: single. 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 * Medications:?TakingAspirin A dult Low [...] toe(s) - M79.675?4.?Skin disease - L98.9?5.?Atherosclerosis of [place] arteries of extremities with intermittent claudication, bilateral [...] as necessary. Patient chooses, no pharmaceutical tx (48259).?Keratoma Treatment:?Parring or Cutting of Benign Hyperkeratotic Lesion(s)?75347 (2-4 Lesions) - The Benign hyperkeratotic lesions, as described above were pared, and/or cut utilizing a sterile #15 blade, tissue nippers, and/or dremel, Q8.? * Procedure Codes:?75348 DEBRI DE NAIL, 6 OR MORE, Modifiers: XS 27257 TRIM SKIN LESIONS, 2 TO 4, Modifiers: Q8 * Follow Up:?3 Months * Images: * Sign off status: Completed true * Provider:?Scott Cline DPM Date:? 024 Generated for Gallo moralez/Alvin/eTransmitting on:?06/07/2024 08:24 AM EST History and Physical [...]
--- OUTSIDE RECORDS SUMMARY | 2024-06-07 08:24 | XMS_ITS | Patient Health Record ---
Author Organization [facility] Address [address] [place] [address] Care Team Providers Care Header Up Name Role Phone Rc You MD Primary Care Provider Unavail able Yue Lobo Unavailable [phone] Scott Cline Unavailable [phone] Allergies Allergen (clinical drug ingredient) Drug/Non Drug Allergy documented on EMR Reaction Allergy Type Onset Date Status ramipril Altace headache Drug Allergy Active acetaminophen / oxycodone Percocet vomiting Drug Allergy Active tramadol Tramadol HCl neuropathy Drug Allergy Act javier atenolol Atenolol headache Drug Allergy Active Penicillin pain Drug Allergy Active Substance with 2-uutsyfd-0-methylgl utaryl-coenzyme A reductase inhibitor mechanism of action [...] Problem Acquired hammer toe of right foot (8554033924296397) Other hammer toe(s) (acquired), right foot (M20.41) Active confirmed Problem Acquired hammer toe of left foot (9692812107739533) Other hammer toe(s) (acquired), left foot (M20.42) Active confirmed Problem Intermittent claudication of bilateral lower limbs co-occurrent and due to atherosclerosis (17767130091880202 ) Atherosclerosis of [place] arteries of extremities with intermittent claudication, 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) Active confirmed Problem Atherosclerosis of [place] artery of both lower extremities, with unspecified presence of clinical manifestation (I70.203) Active confirmed Q7(A), Q8(2B), Q9(1B,2 C) Vital Signs Blood pressure diastolic 79 mm Hg 05/03/2024 Height 5 ft 10 in in 05/03/2024 Blood pressure systolic 121 mm Hg 05/03/2024 Weight 260 lbs 05/03/2024 BMI 37.3 kg/m2 05/03/2024 Procedures Procedure Date Ordered Date Performed Result Body Sit e 88730-FKFXIQL NAIL, 6 OR MORE 05/03/2024 N/A 55004-JFJF SKIN LESIONS, OVER 4 05/03/2024 N/A Encounters Encounter Location Date Provider Diagnosis [facility] [address] [place] [address] 07/07/2023 Scott Cline Tinea unguium B35.1 ; Pain in right toe(s) M79.674 ; Pain in left toe(s) M79.675 ; Skin disease L98.9 ; Atherosclerosis of [place] arteries of extremities with intermittent claudication, bilateral legs I70.213 ; Other hammer toe(s) (acquired), left foot M20.42 ; Other hammer toe(s) (acquired), right foot M20.41 and Xerosis cutis L85.[address] [address] 10/30/2023 Scott Cline Tinea unguium B35.1 ; Pain in right toe(s) M79.674 ; Pain in left toe(s) M79.675 ; Skin disease L98.9 ; Atherosclerosis of [place] arteries of extremities with intermittent claudication, bilateral legs I70.213 ; Other hammer toe(s) (acquired), left foot M20.42 ; Other hammer toe(s) (acquired), right foot M20.41 and Xerosis cutis L85.[address] [address] 02/02/2024 Scott Cline Tinea unguium B35.1 ; Pain in right toe(s) M79.674 ; Pain in left toe(s) M79.675 ; Skin disease L98.9 ; Atherosclerosis of [place] arteries of extremities with intermittent claudication, bilateral legs I70.213 ; Other hammer toe(s) (acquired), left foot M20.42 ; Other hammer toe(s) (acquired), right foot M20.41 and Xerosis cutis L85.[address] [address] 05/03/2024 Yue Lobo Atherosclerosis of [place] artery of both lower extremities, with unspecified [...] unguium (ICD-10 - B35.1) 05/03/2024 Atherosclerosis of [place] artery of both lower extremities, with unspecified [...] disease (ICD-10 - L98.9) 07/07/2023 Atherosclerosis of [place] arteries of extremities with intermittent claudication, bilateral legs (ICD-10 - I70.213) 10/30/2023 Atherosclerosis of [place] arteries of extremities with intermittent claudication, bilateral legs (ICD-10 - I70.213) 02/02/2024 Atherosclerosis of [place] arteries of extremities with intermittent claudication, bilateral [...] Treatment Pending Test Test Name Order Date 74059-XFTZZVE NAIL, 6 OR MORE 05/03/2024 14851-ULEK SKIN LESIONS, OVER 4 05/03/20 24 99291-IBGE SKIN LESIONS, 2 TO 4 08/07/19 21 83201-EIWS SKIN LESIONS, 2 TO 4 12/28/19 21 75895-ATWQ SKIN LESIONS, 2 TO 4 05/02/20 21 79076-XWJO SKIN LESIONS, 2 TO 4 09/06/19 22 Next Appt Details Provider Name:Yue Graham smiley, 09/20/2024 02:45:00 PM, [address] [facility], [place], [address], Insurance Providers Payer Name Payer Address Payer Phone Subscriber Number Group Number Insured Name Patient Relationship to Insured Coverage Start Date Coverage End Date Medicare National Govt Svcs [employer] [address] [place] [address] [id number] Tad Villar Self - patient is the insured [employer] [address] [place] [address] [phone] [id number] Tad Villar Self - patient is the insured Medical (General) History Medical History History ICD Code Hypertension Heart condition Hyperlipidemia Ulcerative colitis Aortic stenosis Coronary artery disease Atrioventricular block Microscopic Hematuria Pneumonia Congestive heart failure DVT, thrombophlebitis Surgical History Surgery Date(Month/Year) cardiac pacemeker bypass surgery Defibrillator valve surgery
--- OUTSIDE RECORDS SUMMARY | 2024-06-07 08:24 | XMS_ITS ---
Author Organization [facility] Address [address] [place] [address] Care Team Providers Care Executive Talent Acquisition Consultant Name Role Phone Rc You MD Primary Care Provider Unavail able Yue Lobo Unavailable [phone] Scott Cline Unavailable [phone] Allergies Allergen (clinical drug ingredient) Drug/Non Drug Allergy documented on EMR Reaction Allergy Type Onset Date Status ramipril Altace headache Drug Allergy Active acetaminophen / oxycodone Percocet vomiting Drug Allergy Active tramadol Tramadol HCl neuropathy Drug Allergy Act javier atenolol Atenolol headache Drug Allergy Active Penicillin pain Drug Allergy Active Substance with 2-pummkba-3-methylgl utaryl-coenzyme A reductase inhibitor mechanism of action [...] 024 Encounters Encounter Location Date Provider Diagnosis [facility] [place] [address] [place] [address] 02/02/2024 Scott Cline Tinea unguium B35.1 ; [...] disease (ICD-10 - L98.9) 02/02/2024 Atherosclerosis of [place] arteries of extremities with intermittent claudication, bilateral legs (ICD-10 - I70.213) 02/02/2024 Other hammer toe(s) (acquired), left foot (ICD-10 - M20.42) 02/02/2024 Other hammer toe(s) (acquired), right foot (ICD-10 - M20.41) 02/02/2024 Xerosis cutis (ICD-10 - L85.3) Plan Of Treatment Next Appt Details Follow Up: 3 Months, Reason: Provider Name:Yue ries, 09/20/2024 02:45:00 PM, [address] [place], [address], Procedure Notes * Category Sub-Category Detail Notes [...] as necessary. Patient chooses, no pharmaceutical tx (50007) Keratoma Treatment Parring or Cutting o f Benign Hyperkeratotic Lesion(s) 37431 (2-4 Lesions) - The Benign hyperkeratotic lesions, as described above were pared, and/or cut utilizing a sterile #15 blade, tissue nippers, and/or dremel, Q8 Progress Notes * Tad VILLARDOB:1940 (83 yo M)Acc No.[id number]:02/02/2024 Progress Note Patient:?Tad Villar Provider:?Scott Cline DPM :1940???Age:83 Y???Sex:Male Sam e:02/02/2024 Address:[address] [place], [place] [id number] Pcp:Rc You MD Subjective: * Chief Complaints: [...] Children, none. ?Exercise: yes, exercise/ cardiac [place] [facility] [place] ?Marital status: single. 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 * Medications:?TakingAspirin A dult Low [...] as necessary. Patient chooses, no pharmaceutical tx (30822).?Keratoma Treatment:?Parring or Cutting of Benign Hyperkeratotic Lesion(s)?21236 (2-4 Lesions) - The Benign hyperkeratotic lesions, as described above were pared, and/or cut utilizing a sterile #15 blade, tissue nippers, and/or dremel, Q8.? * Procedure Codes:?24025 DEBRI DE NAIL, 6 OR MORE, Modifiers: XS 95958 TRIM SKIN LESIONS, 2 TO 4, Modifiers: Q8 * Follow Up:?3 Months * Images: * Sign off status: Completed true * Provider:?Scott Cline DPM Date:? 024 Generated for Gallo moralez/Alvin/eTelyssa on:?06/07/2024 08:24 AM EST History and Physical [...]
--- OUTSIDE RECORDS SUMMARY | 2024-06-07 08:25 | XMS_ITS ---
Author Organization [facility], FACP Address [address] [place], [place] [id number] Care Team Providers Care Advanced Solutions Architect Name Role Phone Rc You Primary Care [...] Date Provider Diagnosis Rc Vaishnavi You DO, [address] [id number] 08/13/2023 Rc You Chronic systolic congestive heart failure I50.22 ; Coronary artery disease involving [place] coronary artery of [place] heart without angina pectoris I25.10 ; S/P AVR (aortic valve replacement) Z95.2 and Hyperlipidemia, unspecified hyperlipidemia type E78.5 ASSESSMENTS Encounter Date Diagnosis Assessment Notes Treatment Notes Treatment Clinical Notes 08/13/2023 Chronic systolic congestive heart failure (ICD-10 - I50.22) 08/13/2023 Coronary artery disease involving [place] coronary artery of [place] heart without angina pectoris (ICD-10 - I25.10) [...] General Examination GENERAL APPEARANCE: in no ac [place] distress, well developed, well nourished HEAD: normocephalic, atrau matic HEART: no murmurs, regular rate and rhythm, S1, S2 normal with a mechanical S2 click LUNGS: clear to auscultatio n bilaterally ABDOMEN: normal, bowel sounds present, soft, nontender, nondistended SKIN: warm and dry EXTREMITIES: no edema PSYCH: alert, oriented, cog nitive function intact
--- OUTSIDE RECORDS SUMMARY | 2024-06-07 08:25 | XMS_ITS ---
Author Organization [facility], FACP Address [address] [place], [place] [phone] Care Team Providers Care Skip Locator Name Role Phone Rc You Primary Care [...] Location Date Provider Diagnosis Rc You DO, [address] [id number] 02/18/2024 Rc You Essential hypertensi on I10 ; S/P AVR (aortic valve replacement) Z95.2 ; Hyperlipidemia, unspecified hyperlipidemia type E78.5 ; Chronic systolic congestive heart failure I50.22 and Coronary artery disease involving [place] coronary artery of [place] heart without angina pectoris I25.10 ASSESSMENTS Encounter Date Diagnosis Assessment Notes Treatment Notes Treatment Clinical Notes 02/18/2024 Essential hypertension (ICD-10 - I10) 02/18/2024 S/P AVR (aortic valv e replacement) (ICD-10 - Z95.2) 02/18/2024 Hyperlipidemia, unspecified hyperlipidemia type (ICD-10 - E78.5) 02/18/2024 Chronic systolic congestive heart failure (ICD-10 - I50.22) 02/18/2024 Coronary artery disease involving [place] coronary artery of [place] heart without angina pectoris (ICD-10 - I25.10) [...]
--- OUTSIDE RECORDS SUMMARY | 2024-06-07 08:25 | XMS_ITS ---
Author Organization Rc You DO, [facility] Address [address] [place], [place] [phone] Care Team Providers Care Oil Well Drilling Manager Name Role Phone Rc You Primary Care Provider REASON FOR VISIT Message SOCIAL HISTORY Sex Assigned At : Social History Observation Description Sex Assigned At Male Encounters Encounter Location Date Provider Diagnosis Rc You DO, FACP [address] [place], [place] [id number] 05/07/2024 Rc You PLAN OF TREATMENT No Information
--- OUTSIDE RECORDS SUMMARY | 2024-06-07 08:26 | XMS_ITS | Patient Health Record ---
Author Organization [facility] Address [address] [place] [address] Care Team Providers Care Fountain Dispenser Name Role Phone Avelino Jean-Paul ZAPATA Primary Care Provider Unavail able Jean-Paul Lemus Unavailable [phone] ALLERGIES Allergen (clinical drug ingredient) Drug/Non Drug [...] Notes Problem Hypertension (401.9) Active confirmed Hypertension (47249944) Problem Colon cancer screening (V76.51) Active confirmed Colon cancer screening (737331222) Problem Constipation, unspecified constipation type (K59.00) Active confirmed 40035872 Problem Change in bowel habits (R19.4) Active confirmed [id number] PLAN OF TREATMENT No Information Insurance Providers Payer Name Payer Address Payer Phone Subscriber Number Group Number Insured Name Patient Relationship to Insured Coverage Start Date Coverage End Date MEDICARE OF [place] [address] [place] [address] [id number] HANNAH HEIDI Self - patient is the insured MEDEX ATT[employer] CLAIMS [address] [place] [address] [id number] HEIDI YOUNG Self - patient is the insured MEDICAL (GENERAL) HISTORY Medical History History ICD Code Hypertension Denies AL,DM,CVA,Lung disease,renal dise ase Colonoscopies in [address] 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 Dodson at [facility], pacemaker and defibrillator--sees Dr. Jade DVT in right leg in 2003 Surgical History Surgery Date(Month/Year) 4V CABG and aortic valve replacement in 2013 as above 2013 Defibrillator Pacemaker
--- OUTSIDE RECORDS SUMMARY | 2024-06-07 08:26 | XMS_ITS | Patient Health Record ---
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 Name Role Phone Rc You Primary Care Provider [phone] ALLERGIES Allergen (clinical drug ingredient) Drug/Non Drug [...] POC Reviewed date:06/12/2023 02:58:30 PM Interpretation:Therapeutic Performing Lab:[facility], [address] [place] [phone] Notes/Report: PT, INR - Anti [facility] Clinic 2.9 0.9-1.1 METER #: [id number] INTERNATIONAL NORMALIZED RATIO (INR) REFERENCE RANGES Reference [...] OC Reviewed date:06/12/2023 02:58:30 PM Interpretation:Therapeutic Performing Lab:[facility], [address] [place] [phone] Notes/Report: Prothrombin Time Whole Bld POC 34.4 11.1-13.5 sec INR WHOLE BLOOD POC Reviewed date:06/26/2023 12:31:11 PM Interpretation:Supratherapeutic Performing Lab:[facility], [address] [place] [phone] Notes/Report: PT, INR - Anti [facility]ag Clinic 3.6 0.9-1.1 METER #: [id number] INTERNATIONAL NORMALIZED RATIO (INR) REFERENCE RANGES Reference [...] OC Reviewed date:06/26/2023 12:31:11 PM Interpretation:Supratherapeutic Performing Lab:[facility], [address] [place] [phone] Notes/Report: Prothrombin Time Whole Bld POC 43.0 11.1-13.5 sec Complete Blood Count Auto Di ff Reviewed date:07/11/2023 03:01:39 AM Interpretation:Abnormal Performing Lab:[address] [phone] Notes/Report: White Blood Count 7.6 4.8-10.8 X10*3/uL [...] Panel Reviewed date:07/11/2023 03:01:39 AM Interpretation:Normal Performing Lab:[address] [phone] Notes/Report: Sodium 142 135-145 mmol/L Potassium 3.9 3.3-5.1 mmol/L Chloride 104 96-108 mmol/L Carbon Dioxide 28 22-29 mmol/L Anion Gap 14 12-20 Blood Urea Nitrogen 16 9-16 mg/dL Creatinine 1.09 0.5-1.4 mg/dL Estimated Glomerular Filt Rate > 60 NOTE: For -Portuguese individuals, multiply the result by 1.210. Chronic Kidney Disease: Estimated GFR < 60 mL/min/1.73m2 Severe Kidney Disease: Estimated GFR < 15 mL/min/1.73m2 Glucose Random 105 60-115 mg/dL Calcium 9.4 8.4-10.2 mg/dL B Type Natriuretic Peptide Reviewed date:07/11/2023 03:01:39 AM Interpretation:Abnormal Performing Lab:[address] [phone] Notes/Report: B Type Natriuretic Peptide 148 <100 pg/mL For those patients who are being treated with Natrecor (nesiritide, recombinant BNP), BNP testing should be performed at least two hours post treatment in order to ensure that only endogenous levels of BNP are detected. INR WHOLE BLOOD POC Reviewed date:07/11/2023 03:02:09 AM Interpretation:Therapeutic Performing Lab:[facility], [address] [place] [phone] Notes/Report: PT, INR - [facility]ag Clinic 3.1 0.9-1.1 METER #: [id number] INTERNATIONAL NORMALIZED RATIO (INR) REFERENCE RANGES Reference [...] OC Reviewed date:07/11/2023 03:02:29 AM Interpretation:Therapeutic Performing Lab:[facility], [address] [place] [phone] Notes/Report: Prothrombin Time Whole Bld POC 36.9 11.1-13.5 sec INR WHOLE BLOOD POC Reviewed date:07/24/2023 12:26:18 PM Interpretation:Therapeutic Performing Lab:[facility], [address] [place] [phone] Notes/Report: PT, INR - [facility] Clinic 2.7 0.9-1.1 METER #: [id number] INTERNATIONAL NORMALIZED RATIO (INR) REFERENCE RANGES Reference [...] OC Reviewed date:07/24/2023 12:26:51 PM Interpretation:Therapeutic Performing Lab:[facility], [address] [place] [phone] Notes/Report: Prothrombin Time Whole Bld POC 32.5 11.1-13.5 sec INR WHOLE BLOOD POC Reviewed date:08/07/2023 06:22:09 PM Interpretation:Therapeutic Performing Lab:[facility], [address] [place] [phone] Notes/Report: PT, INR - [facility] 2.7 0.9-1.1 METER #: [id number] INTERNATIONAL NORMALIZED RATIO (INR) REFERENCE RANGES Reference [...] OC Reviewed date:08/07/2023 06:22:09 PM Interpretation:Therapeutic Performing Lab:[address] [phone] Notes/Report: Prothrombin Time Whole Bld POC 31.8 11.1-13.5 sec INR WHOLE BLOOD POC Reviewed date:08/21/2023 10:14:55 AM Interpretation:Subtherapeutic Performing Lab:[address] [address] Notes/Report: PT, INR - [facility] 1.7 0.9-1.1 METER #: [id number] INTERNATIONAL NORMALIZED RATIO (INR) REFERENCE RANGES Reference [...] OC Reviewed date:08/21/2023 10:14:38 AM Interpretation:Subtherapeutic Performing Lab:[address] [phone] Notes/Report: Prothrombin Time Whole Bld POC 20.6 11.1-13.5 sec INR WHOLE BLOOD POC Reviewed date:09/04/2023 04:05:12 PM Interpretation:Subtherapeutic Performing Lab:[facility], [address] [place] [phone] Notes/Report: PT, INR - [facility] 2.4 0.9-1.1 METER #: [id number] INTERNATIONAL NORMALIZED RATIO (INR) REFERENCE RANGES Reference [...] OC Reviewed date:09/04/2023 04:05:12 PM Interpretation:Subtherapeutic Performing Lab:[address] [phone] Notes/Report: Prothrombin Time Whole Bld POC 29.3 11.1-13.5 sec INR WHOLE BLOOD POC Reviewed date:09/18/2023 01:21:34 PM Interpretation:Subtherapeutic Performing Lab:[facility], [address] [place] [phone] Notes/Report: PT, INR - [facility] 1.8 0.9-1.1 METER #: [id number] INTERNATIONAL NORMALIZED RATIO (INR) REFERENCE RANGES Reference [...] OC Reviewed date:09/18/2023 01:21:34 PM Interpretation:Subtherapeutic Performing Lab:[facility], [address] [place] [phone] Notes/Report: Prothrombin Time Whole Bld POC 21.9 11.1-13.5 sec INR WHOLE BLOOD POC Reviewed date:10/02/2023 12:32:11 PM Interpretation:Subtherapeutic Performing Lab:[facility] [address] [place] [phone] Notes/Report: PT, INR - [facility]ag Clinic 2.2 0.9-1.1 METER #: [id number] INTERNATIONAL NORMALIZED RATIO (INR) REFERENCE RANGES Reference [...] OC Reviewed date:10/02/2023 12:32:11 PM Interpretation:Subtherapeutic Performing Lab:[facility], [address] [place] [phone] Notes/Report: Prothrombin Time Whole Bld POC 26.0 11.1-13.5 sec INR WHOLE BLOOD POC Reviewed date:10/16/2023 05:40:27 PM Interpretation:Subtherapeutic Performing Lab:[facility], [address] [place] [phone] Notes/Report: PT, INR - [facility] 1.6 0.9-1.1 METER #: [id number] INTERNATIONAL NORMALIZED RATIO (INR) REFERENCE RANGES Reference [...] OC Reviewed date:10/16/2023 05:40:27 PM Interpretation:Subtherapeutic Performing Lab:[facility], [address] [place] [phone] Notes/Report: Prothrombin Time Whole Bld POC 19.1 11.1-13.5 sec INR WHOLE BLOOD POC Reviewed date:10/30/2023 11:04:40 AM Interpretation:Subtherapeutic Performing Lab:[facility], [address] [place] [phone] Notes/Report: PT, INR - [facility] 1.8 0.9-1.1 METER #: [id number] INTERNATIONAL NORMALIZED RATIO (INR) REFERENCE RANGES Reference [...] OC Reviewed date:10/30/2023 11:04:41 AM Interpretation:Subtherapeutic Performing Lab:[facility], [address] [place] [phone] Notes/Report: Prothrombin Time Whole Bld POC 21.1 11.1-13.5 sec INR WHOLE BLOOD POC Reviewed date:11/06/2023 09:49:33 AM Interpretation:Therapeutic Performing Lab:[facility], [address] [place] [phone] Notes/Report: PT, INR - [facility] 2.5 0.9-1.1 METER #: [id number] INTERNATIONAL NORMALIZED RATIO (INR) REFERENCE RANGES Reference [...] OC Reviewed date:11/06/2023 09:49:33 AM Interpretation:Therapeutic Performing Lab:[address] [phone] Notes/Report: Prothrombin Time Whole Bld POC 30.0 11.1-13.5 sec INR WHOLE BLOOD POC Reviewed date:11/20/2023 05:07:58 PM Interpretation:Therapeutic Performing Lab:[facility] [address] [phone] Notes/Report: PT, INR - Anti Coag Clinic 3.4 0.9-1.1 METER #: [id number] INTERNATIONAL NORMALIZED RATIO (INR) REFERENCE RANGES Reference [...] OC Reviewed date:11/20/2023 05:07:58 PM Interpretation:Therapeutic Performing Lab:[address] [phone] Notes/Report: Prothrombin Time Whole Bld POC 40.3 11.1-13.5 sec INR WHOLE BLOOD POC Reviewed date:12/04/2023 02:13:26 PM Interpretation:Subtherapeutic Performing Lab:[address] [address] Notes/Report: PT, INR - [facility] 2.1 0.9-1.1 METER #: [id number] INTERNATIONAL NORMALIZED RATIO (INR) REFERENCE RANGES Reference [...] OC Reviewed date:12/04/2023 02:13:26 PM Interpretation:Subtherapeutic Performing Lab:[address] [phone] Notes/Report: Prothrombin Time Whole Bld POC 24.8 11.1-13.5 sec INR WHOLE BLOOD POC Reviewed date:12/23/2023 09:20:14 AM Interpretation:Subtherapeutic Performing Lab:[address] [place] [address] Notes/Report: PT, INR - [facility] 2.4 0.9-1.1 METER #: [id number] INTERNATIONAL NORMALIZED RATIO (INR) REFERENCE RANGES Reference [...] OC Reviewed date:12/23/2023 09:20:14 AM Interpretation:Subtherapeutic Performing Lab:[address] [phone] Notes/Report: Prothrombin Time Whole Bld POC 29.1 11.1-13.5 sec INR WHOLE BLOOD POC Reviewed date:01/08/2024 05:36:01 PM Interpretation:Subtherapeutic Performing Lab:[address] [address] Notes/Report: PT, INR - [facility] 2.0 0.9-1.1 METER #: [id number] INTERNATIONAL NORMALIZED RATIO (INR) REFERENCE RANGES Reference [...] OC Reviewed date:01/08/2024 05:36:52 PM Interpretation:Subtherapeutic Performing Lab:[address] [phone] Notes/Report: Prothrombin Time Whole Bld POC 24.2 11.1-13.5 sec INR WHOLE BLOOD POC Reviewed date:01/22/2024 04:15:39 PM Interpretation:Subtherapeutic Performing Lab:[address] [place] [address] Notes/Report: PT, INR - [facility]ag Clinic 2.4 0.9-1.1 METER #: [id number] INTERNATIONAL NORMALIZED RATIO (INR) REFERENCE RANGES Reference [...] OC Reviewed date:01/22/2024 04:15:39 PM Interpretation:Subtherapeutic Performing Lab:[address] [phone] Notes/Report: Prothrombin Time Whole Bld POC 28.7 11.1-13.5 sec INR WHOLE BLOOD POC Reviewed date:02/06/2024 12:01:20 PM Interpretation:Subtherapeutic Performing Lab:[address] [phone] Notes/Report: PT, INR - [facility] 1.8 0.9-1.1 METER #: [id number] INTERNATIONAL NORMALIZED RATIO (INR) REFERENCE RANGES Reference [...] OC Reviewed date:02/06/2024 12:01:20 PM Interpretation:Subtherapeutic Performing Lab:[address] [address] Notes/Report: Prothrombin Time Whole Bld POC 21.5 11.1-13.5 sec INR WHOLE BLOOD POC Reviewed date:02/19/2024 11:14:27 AM Interpretation:Subtherapeutic Performing Lab:[facility] [address] Notes/Report: PT, INR - [facility]ag Clinic 1.8 0.9-1.1 METER #: [id number] INTERNATIONAL NORMALIZED RATIO (INR) REFERENCE RANGES Reference [...] OC Reviewed date:02/19/2024 11:14:27 AM Interpretation:Subtherapeutic Performing Lab:[address] [phone] Notes/Report: Prothrombin Time Whole Bld POC 21.1 11.1-13.5 sec Complete Blood Count Auto Di ff Reviewed date:02/20/2024 09:36:20 AM Interpretation:Abnormal Performing Lab:[address] [phone] Notes/Report: White Blood Count 6.9 4.8-10.8 X10*3/uL [...] NRBC Abs Auto 0.000 0.0-0.012 X10*3/uL Comprehensive [place]. Panel Fa st Reviewed date:02/20/2024 09:36:02 AM Interpretation:Abnormal Performing Lab:[facility], [address] [place] [phone] Notes/Report: Sodium 141 135-145 mmol/L Potassium 3.9 3.3-5.1 mmol/L Chloride 104 96-108 mmol/L Carbon Dioxide 31 22-29 mmol/L Anion Gap 10 12-20 Blood Urea Nitrogen 19 9-16 mg/dL Creatinine 1.25 0.5-1.4 mg/dL Estimated Glomerular Filt Rate 55 NOTE: For -Portuguese individuals, multiply the result by 1.210. Chronic [...] Peptide Reviewed date:02/20/2024 09:36:02 AM Interpretation:Abnormal Performing Lab:[facility], [address] [place] [phone] Notes/Report: B Type Natriuretic Peptide 101 <100 pg/mL For those patients who are being treated with Natrecor (nesiritide, recombinant BNP), BNP testing should be performed at least two hours post treatment in order to ensure that only endogenous levels of BNP are detected. Lipid Panel Reviewed date:02/20/2024 09:36:02 AM Interpretation:Abnormal Performing Lab:[facility], [address] [place] [phone] Notes/Report: Triglycerides 88 <150 mg/dL Desirable Triglyceride: [...] Hormone Reviewed date:02/20/2024 09:36:02 AM Interpretation:Normal Performing Lab:[facility], [address] [place] [phone] Notes/Report: Thyroid Stimulating Hormone 2.86 0.32-4.0 uIU/ mL Note: A sustained TSH level above 2.5 uIU/mL may warrant further investigation. TSH 3rd Generation ([facility]) INR WHOLE BLOOD POC Reviewed date:02/26/2024 12:07:23 PM Interpretation:Subtherapeutic Performing Lab:[facility], [address] [place] [phone] Notes/Report: PT, INR - Anti [facility]ag Clinic 2.4 0.9-1.1 METER #: [id number] INTERNATIONAL NORMALIZED RATIO (INR) REFERENCE RANGES Reference [...] OC Reviewed date:02/26/2024 12:07:23 PM Interpretation:Subtherapeutic Performing Lab:[facility], [address] [place] [phone] Notes/Report: Prothrombin Time Whole Bld POC 28.6 11.1-13.5 sec INR WHOLE BLOOD POC Reviewed date:03/04/2024 09:09:11 AM Interpretation:Therapeutic Performing Lab:[facility], [address] [place] [phone] Notes/Report: PT, INR - Anti Coag Clinic 2.5 0.9-1.1 METER #: [id number] INTERNATIONAL NORMALIZED RATIO (INR) REFERENCE RANGES Reference [...] OC Reviewed date:03/04/2024 09:09:11 AM Interpretation:Therapeutic Performing Lab:[facility], [address] [place] [phone] Notes/Report: Prothrombin Time Whole Bld POC 29.8 11.1-13.5 sec INR WHOLE BLOOD POC Reviewed date:03/18/2024 11:44:06 AM Interpretation:Subtherapeutic Performing Lab:[facility], [address] [place] [phone] Notes/Report: PT, INR - Anti Coag Clinic 2.3 0.9-1.1 METER #: [id number] INTERNATIONAL NORMALIZED RATIO (INR) REFERENCE RANGES Reference [...] OC Reviewed date:03/18/2024 11:44:06 AM Interpretation:Subtherapeutic Performing Lab:[facility], [address] [place] [phone] Notes/Report: Prothrombin Time Whole Bld POC 27.6 11.1-13.5 sec INR WHOLE BLOOD POC Reviewed date:04/01/2024 11:18:04 AM Interpretation:Subtherapeutic Performing Lab:[facility], [address] [place] [phone] Notes/Report: PT, INR - Anti Coag Clinic 1.5 0.9-1.1 METER #: [id number] INTERNATIONAL NORMALIZED RATIO (INR) REFERENCE RANGES Reference [...] OC Reviewed date:04/01/2024 11:18:04 AM Interpretation:Subtherapeutic Performing Lab:[facility], [address] [place] [phone] Notes/Report: Prothrombin Time Whole Bld POC 17.5 11.1-13.5 sec INR WHOLE BLOOD POC Reviewed date:04/08/2024 12:30:51 PM Interpretation:Therapeutic Performing Lab:[facility], [address] [place] [phone] Notes/Report: PT, INR - Anti Coag Clinic 3.3 0.9-1.1 METER #: [id number] INTERNATIONAL NORMALIZED RATIO (INR) REFERENCE RANGES Reference [...] OC Reviewed date:04/08/2024 12:30:51 PM Interpretation:Therapeutic Performing Lab:[facility], [address] [place] [phone] Notes/Report: Prothrombin Time Whole Bld POC 40.1 11.1-13.5 sec INR WHOLE BLOOD POC Reviewed date:04/22/2024 09:03:12 AM Interpretation:Subtherapeutic Performing Lab:[facility], [address] [place] [phone] Notes/Report: PT, INR - Anti Coag Clinic 1.9 0.9-1.1 METER #: [id number] INTERNATIONAL NORMALIZED RATIO (INR) REFERENCE RANGES Reference [...] OC Reviewed date:04/22/2024 09:03:12 AM Interpretation:Subtherapeutic Performing Lab:[facility], [address] [place] [phone] Notes/Report: Prothrombin Time Whole Bld POC 22.5 11.1-13.5 sec INR WHOLE BLOOD POC Reviewed date:05/06/2024 10:42:32 AM Interpretation:Subtherapeutic Performing Lab:[facility], [address] [place] [phone] Notes/Report: PT, INR - Anti Coag Clinic 2.2 0.9-1.1 METER #: [id number] INTERNATIONAL NORMALIZED RATIO (INR) REFERENCE RANGES Reference [...] OC Reviewed date:05/06/2024 10:42:32 AM Interpretation:Subtherapeutic Performing Lab:[facility], [address] [place] [phone] Notes/Report: Prothrombin Time Whole Bld POC 26.0 11.1-13.5 sec INR WHOLE BLOOD POC Reviewed date:05/20/2024 12:13:06 PM Interpretation:Subtherapeutic Performing Lab:[facility], [address] [place] [phone] Notes/Report: PT, INR - Anti Coag Clinic 2.1 0.9-1.1 METER #: [id number] INTERNATIONAL NORMALIZED RATIO (INR) REFERENCE RANGES Reference [...] OC Reviewed date:05/20/2024 12:13:06 PM Interpretation:Subtherapeutic Performing Lab:[facility], [address] [place] [phone] Notes/Report: Prothrombin Time Whole Bld POC 25.3 11.1-13.5 sec INR WHOLE BLOOD POC Reviewed date:06/03/2024 11:35:39 AM Interpretation:Subtherapeutic Performing Lab:[facility], [address] [place] [phone] Notes/Report: PT, INR - Anti Coag Clinic 1.6 0.9-1.1 METER #: [id number] INTERNATIONAL NORMALIZED RATIO (INR) REFERENCE RANGES Reference [...] Prothrombin Time Whole Bld P OC Reviewed date:06/03/2024 11:35:39 AM Interpretation:Subtherapeutic Performing Lab:[facility], [address] [place] [address], [place] [address] Notes/Report: Prothrombin Time Whole Bld POC 18.8 11.1-13.5 sec REASON FOR REFERRAL Reason Persistent left sacr al/pelvic pain s/p fall Diagnosis 1 Unspecified injury o f lower back, initial encounter (S39.92XA) Referral Organization Rc Wyatt FACP Referring Provider First Name Rc Referring Provider Last Name Avelino Referring Provider Speciality Internal M edicine Referred Provider [facility] [place] Physical The[place] [facility] Referred Provider Specialty Physical The rapist General Notes Larisa Macario 11:21:19 AM EST > referral faxed; patient [...] faxed; patient aware specialist's office will contact him.Renaldo Joan 05/07/2024 04:25:08 PM EST > [facility] [place] not accepting new patients.Avelino Robert M 05/07/2024 05:40:16 PM EST > [facility] 09:24:10 AM EST > Patient called and said he will not go to [place] and he will figure something else out. 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) Active confirmed 87789545 Problem Age-related cataract of both eyes, unspecified age-related cataract type (H25.9) Active confirmed 74966338 Problem Unspecified osteoarthritis, unspecified site (M19.90) Active confirmed Osteoarthritis (391463139) VITAL SIGNS Blood pressure diastolic 76 mm Hg 02/18/2024 Height 69 in 02/18/2024 Blood pressure systolic 152 mm Hg 02/18/2024 Weight 268 lbs 02/18/2024 BMI 39.57 kg/m2 02/18/2024 Encounters Encounter Location Date Provider Diagnosis Rc You DO, [address] [id number] 08/13/2023 Rc You Chronic systolic congestive heart failure I50.22 ; Coronary artery disease involving deering coronary artery of deering heart without angina pectoris I25.10 ; S/P AVR (aortic valve replacement) Z95.2 and Hyperlipidemia, unspecified hyperlipidemia type E78.5 Rc You DO, [address] [id number] 02/18/2024 Rc You Essential hypertensi on I10 ; S/P AVR (aortic valve replacement) Z95.2 ; Hyperlipidemia, unspecified hyperlipidemia type E78.5 ; Chronic systolic congestive heart failure I50.22 and Coronary artery disease involving deering coronary artery of deering heart without angina pectoris I25.10 Rc You DO, [address] [id number] 06/27/2023 cR You DO, [address] [id number] 05/07/2024 Rc You ASSESSMENTS Encounter Date Diagnosis Assessment Notes Treatment Notes Treatment Clinical Notes 08/13/2023 Chronic systolic congestive heart failure (ICD-10 - I50.22) 08/13/2023 Coronary artery disease involving deering coronary artery of deering heart without angina pectoris (ICD-10 - I25.10) 02/18/2024 Essential hypertension (ICD-10 - I10) 02/18/2024 S/P AVR (aortic valv e replacement) (ICD-10 - Z95.2) 08/13/2023 S/P AVR (aortic valv e replacement) (ICD-10 - Z95.2) 02/18/2024 Hyperlipidemia, unspecified hyperlipidemia type (ICD-10 - E78.5) 08/13/2023 Hyperlipidemia, unspecified hyperlipidemia type (ICD-10 - E78.5) 02/18/2024 Chronic systolic congestive heart failure (ICD-10 - I50.22) 02/18/2024 Coronary artery disease involving deering coronary artery of deering heart without angina pectoris (ICD-10 - I25.10) PLAN OF TREATMENT No Information Insurance Providers Payer Name Payer Address Payer Phone Subscriber Number Group Number Insured Name Patient Relationship to Insured Coverage Start Date Coverage End Date MEDICARE [address] [place] [phone] [id number] Tad Villar Self - patient is the insured [employer] [address] [place] [address] [id number] Tad Villar Self - patient is the [...]
--- NOTE | 2024-06-07 09:12 | AM.OFFWIN_ITS ---
Intake Vital Signs 06/07/24 09:13 Weight 265 lb BP 124/80 Blood Pressure Location Rt brachial Position Sitting Pulse 108 H Pulse Source Pulse Oximeter Pulse Oximetry (%) 98 Oxygen Delivery Method Room Air Intake Visit Reasons: EP LT leg pain Intake Note: Patient here for left bottom of foot pain that has present for about 3-4 days. Patient Tobacco Use Status: Former Tobacco user Allergies Penicillins [PENICILLINS] Allergy (Severe, Verified 06/07/24 09:14) HIVES Do you need a note to return to daycare/school/sports/work: No HPI EP LT leg pain HPI Details This note is constructed using voice recognition software. While every effort has been made to ensure accuracy, geospatial image analyst errors may have been included. The patient is a 84 year old male who presents to the clinic today with left heal pain for the past 3-4 days. He applied a bandaid to the area and it made it feel better. He denies any injury to the area specifically stepping on anything, hitting anything, picking. He reports he is unable to see the foot very well. [facility] Medical History Fatigue Current use of anticoagulant therapy Surgical History History of cardiac cath History of aortic valve replacement Family History Father No problems noted. Mother No problems noted. Social History Alcohol intake: current Alcohol intake frequency: a few times a month Alcohol type: beer Patient Tobacco Use Status: Former Tobacco user Years Smoked: 23 +/- Review of Systems Const All systems reviewed & are unremarkable except as noted in HPI and below Physical Exam Vital Signs: Last Vital Signs Pulse 108 H 06/07/24 09:13 BP 124/80 06/07/24 09:13 Pulse Ox 98 06/07/24 09:13 Oxygen Delivery Method Room Air 06/07/24 09:13 Const General: cooperative, healthy appearing, comfortable, no acute distress and well developed Orientation/consciousness: patient oriented x3 Limitations: no limitations Resp Effort & Inspection: normal respiratory effort and able to speak in complete sentences Skin Other: Left heal with scabbing present. No erythema, warmth, discharge. Neuro General: patient oriented x3 Extrem General: Yes normal to inspection Assessment & Plan Assessment & Plan (1) Abrasion: Code(s): T14.8XXA - Other injury of unspecified body region, initial encounter Plan: There is resolving, advised patient to keep area clean, dry, Band-Aid applied for patient comfort. Advised monitoring for signs of infection including redness, warmth, discharge, which may be completed by use of a mirror. Plan See above for full details and plan. Coding Level of Care Code Est Pt Level 3 (96697) Diagnoses Abrasion T14.8XXA
[2024-06-07 09:13] VITALS: BP 124/80; PULSE 108; O2SAT 98
== END 2024-06-07 09:54 | disposition home or self-care (01) ==
PROVIDERS: PCP Internal Medicine; Visit Provider Registered Nurse
DX: T14.8XXA Other injury of unspecified body region, initial encounter (principal)

== ENCOUNTER → 2024-06-07 08:14 | Outpatient (BNVA) | payer MEDICARE, SELFPAY | PROVIDERS: PCP Internal Medicine; Visit Provider Registered Nurse | DX: M79.672 Pain in left foot (principal) | CPT/HCPCS: 99212 ==

== ENCOUNTER 2024-06-08 08:10 | Outpatient (AMB) | payer MEDICARE, SELFPAY ==
--- OUTSIDE RECORDS SUMMARY | 2024-06-08 08:12 | XMS_ITS ---
Author Organization [facility] Address [address] [place] [address] Care Team Providers Care Quality Improvement Specialist Name Role Phone Rc You MD Primary Care Provider Unavail able Yue Lobo Unavailable [phone] Scott Cline Unavailable [phone] Allergies Allergen (clinical drug ingredient) Drug/Non Drug Allergy documented on EMR Reaction Allergy Type Onset Date Status ramipril Altace headache Drug Allergy Active acetaminophen / oxycodone Percocet vomiting Drug Allergy Active tramadol Tramadol HCl neuropathy Drug Allergy Act javier atenolol Atenolol headache Drug Allergy Active Penicillin pain Drug Allergy Active Substance with 4-xrhtbpj-5-methylgl utaryl-coenzyme A reductase inhibitor mechanism of action [...] 024 Encounters Encounter Location Date Provider Diagnosis [facility] [address] [place] [address] 02/02/2024 Scott Cline Tinea unguium B35.1 ; Pain in right toe(s) M79.674 ; Pain in left toe(s) M79.675 ; Skin disease L98.9 ; Atherosclerosis of sy[place] arteries of extremities with intermittent claudication, bilateral [...] disease (ICD-10 - L98.9) 02/02/2024 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 Patient chooses, no pharmaceutical tx (44158) Keratoma Treatment Parring or Cutting o f Benign Hyperkeratotic Lesion(s) 86128 (2-4 Lesions) - The Benign hyperkeratotic lesions, as described above were pared, and/or cut utilizing a sterile #15 blade, tissue nippers, and/or dremel, Q8 Progress Notes * Tad VILLARDOB:1940 (83 yo M)Acc No.[id number]:02/02/2024 Progress Note Patient:?Tad Villar Provider:?Scott Cline DPM :1940???Age:83 Y???Sex:Male Sam e:02/02/2024 Address:[address] [place], [place] [id number] Pcp:Rc You MD Subjective: * Chief Complaints: [...] Children, none. ?Exercise: yes, exercise/ cardiac rehab [facility] [place]. ?Marital status: single. 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 Patient chooses, no pharmaceutical tx (42651).?Keratoma Treatment:?Parring or Cutting of Benign Hyperkeratotic Lesion(s)?60781 (2-4 Lesions) - The Benign hyperkeratotic lesions, as described above were pared, and/or cut utilizing a sterile #15 blade, tissue nippers, and/or dremel, Q8.? * Procedure Codes:?39094 DEBRI DE NAIL, 6 OR MORE, Modifiers: XS 94478 TRIM SKIN LESIONS, 2 TO 4, Modifiers: Q8 * Follow Up:?3 Months * Images: * Sign off status: Completed true * Provider:?Scott Cline DPM Date:? 024 Generated for Gallo moralez/Alvin/eTelyssa on:?06/08/2024 08:11 AM EST History and Physical Notes * [...]
--- OUTSIDE RECORDS SUMMARY | 2024-06-08 08:12 | XMS_ITS ---
Author Organization Rc Vaishnavi Avelino ZAPATA, FACP Address [address] [place], [place] [id number] Care Team Providers Care Immigration Coordinator Name Role Phone Rc You Primary Care Provider [phone] ALLERGIES Allergen (clinical drug ingredient) Drug/Non Drug [...] Location Date Provider Diagnosis Rc You DO, [address] [id number] 02/18/2024 Rc You Essential hypertensi on I10 ; S/P AVR (aortic valve replacement) Z95.2 ; Hyperlipidemia, unspecified hyperlipidemia type E78.5 ; Chronic systolic congestive heart failure I50.22 and Coronary artery disease involving [place] coronary artery of [place] heart without angina pectoris I25.10 ASSESSMENTS Encounter Date Diagnosis Assessment Notes Treatment Notes Treatment Clinical Notes 02/18/2024 Essential hypertension (ICD-10 - I10) 02/18/2024 S/P AVR (aortic valv e replacement) (ICD-10 - Z95.2) 02/18/2024 Hyperlipidemia, unspecified hyperlipidemia type (ICD-10 - E78.5) 02/18/2024 Chronic systolic congestive heart failure (ICD-10 - I50.22) 02/18/2024 Coronary artery disease involving [place] coronary artery of [place] heart without angina pectoris (ICD-10 - I25.10) [...]
--- OUTSIDE RECORDS SUMMARY | 2024-06-08 08:12 | XMS_ITS | Patient Health Record ---
Author Organization [facility] Address [address] [place] [address] Care Team Providers Care Display Manager Name Role Phone Rc You MD Primary Care Provider Unavail able Yue Lobo Unavailable [phone] Scott Cline Unavailable [phone] Allergies Allergen (clinical drug ingredient) Drug/Non Drug Allergy documented on EMR Reaction Allergy Type Onset Date Status ramipril Altace headache Drug Allergy Active acetaminophen / oxycodone Percocet vomiting Drug Allergy Active tramadol Tramadol HCl neuropathy Drug Allergy Act javier atenolol Atenolol headache Drug Allergy Active Penicillin pain Drug Allergy Active Substance with 7-szdldeo-4-methylgl utaryl-coenzyme A reductase inhibitor mechanism of action [...] Problem Acquired hammer toe of right foot (3203270163236210) Other hammer toe(s) (acquired), right foot (M20.41) Active confirmed Problem Acquired hammer toe of left foot (1380765769754802) Other hammer toe(s) (acquired), left foot (M20.42) Active confirmed Problem Intermittent claudication of bilateral lower limbs co-occurrent and due to atherosclerosis (58386424751788902 ) Atherosclerosis of [place] arteries of extremities with intermittent claudication, 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) Active confirmed Problem Atherosclerosis of [place] artery of both lower extremities, with unspecified presence of clinical manifestation (I70.203) Active confirmed Q7(A), Q8(2B), Q9(1B,2 C) Vital Signs Blood pressure diastolic 79 mm Hg 05/03/2024 Height 5 ft 10 in in 05/03/2024 Blood pressure systolic 121 mm Hg 05/03/2024 Weight 260 lbs 05/03/2024 BMI 37.3 kg/m2 05/03/2024 Procedures Procedure Date Ordered Date Performed Result Body Sit e 19878-AETJGQA NAIL, 6 OR MORE 05/03/2024 N/A 51430-JLEC SKIN LESIONS, OVER 4 05/03/2024 N/A Encounters Encounter Location Date Provider Diagnosis [facility] [address] [place] [address] 07/07/2023 Scott Cline Tinea unguium B35.1 ; Pain in right toe(s) M79.674 ; Pain in left toe(s) M79.675 ; Skin disease L98.9 ; Atherosclerosis of [place] arteries of extremities with intermittent claudication, bilateral legs I70.213 ; Other hammer toe(s) (acquired), left foot M20.42 ; Other hammer toe(s) (acquired), right foot M20.41 and Xerosis cutis L85.[address] [address] 10/30/2023 Sctot Cline Tinea unguium B35.1 ; Pain in right toe(s) M79.674 ; Pain in left toe(s) M79.675 ; Skin disease L98.9 ; Atherosclerosis of [place] arteries of extremities with intermittent claudication, bilateral legs I70.213 ; Other hammer toe(s) (acquired), left foot M20.42 ; Other hammer toe(s) (acquired), right foot M20.41 and Xerosis cutis L85.[address] [address] 02/02/2024 Scott Cline Tinea unguium B35.1 ; Pain in right toe(s) M79.674 ; Pain in left toe(s) M79.675 ; Skin disease L98.9 ; Atherosclerosis of [place] arteries of extremities with intermittent claudication, bilateral legs I70.213 ; Other hammer toe(s) (acquired), left foot M20.42 ; Other hammer toe(s) (acquired), right foot M20.41 and Xerosis cutis L85.[address] [address] 05/03/2024 Yue Lobo Atherosclerosis of [place] artery of both lower extremities, with unspecified [...] unguium (ICD-10 - B35.1) 05/03/2024 Atherosclerosis of [place] artery of both lower extremities, with unspecified [...] disease (ICD-10 - L98.9) 07/07/2023 Atherosclerosis of [place] arteries of extremities with intermittent claudication, bilateral legs (ICD-10 - I70.213) 10/30/2023 Atherosclerosis of [place] arteries of extremities with intermittent claudication, bilateral legs (ICD-10 - I70.213) 02/02/2024 Atherosclerosis of [place] arteries of extremities with intermittent claudication, bilateral [...] Treatment Pending Test Test Name Order Date 39951-VFZBLMP NAIL, 6 OR MORE 05/03/2024 67307-UNHQ SKIN LESIONS, OVER 4 05/03/20 24 97306-YKRQ SKIN LESIONS, 2 TO 4 08/07/19 21 90782-NVUW SKIN LESIONS, 2 TO 4 12/28/19 21 48309-ZUFZ SKIN LESIONS, 2 TO 4 05/02/20 21 46172-TSCI SKIN LESIONS, 2 TO 4 09/06/19 22 Next Appt Details Provider Name:Yue Graham smiley, 09/20/2024 02:45:00 PM, [address] [facility], [place], [address], Insurance Providers Payer Name Payer Address Payer Phone Subscriber Number Group Number Insured Name Patient Relationship to Insured Coverage Start Date Coverage End Date Medicare National Govt Svcs Inc [address] [place] [address] [id number] Tad Villar Self - patient is the insured Med[employer] Blue Shield [address] [place] [address] [id number] Tad Villar Self - patient is the insured Medical (General) History Medical History History ICD Code Hypertension Heart condition Hyperlipidemia Ulcerative colitis Aortic stenosis Coronary artery disease Atrioventricular block Microscopic Hematuria Pneumonia Congestive heart failure DVT, thrombophlebitis Surgical History Surgery Date(Month/Year) cardiac pacemeker bypass surgery Defibrillator valve surgery
--- OUTSIDE RECORDS SUMMARY | 2024-06-08 08:12 | XMS_ITS ---
Author Organization Rc You DO, [facility] Address [address] [place], [place] [id number] Care Team Providers Care Composer Teaching Artist Name Role Phone Rc You Primary Care Provider REASON FOR VISIT Message SOCIAL HISTORY Sex Assigned At : Social History Observation Description Sex Assigned At Male Encounters Encounter Location Date Provider Diagnosis Rc You DO, FACP [address] [place], [place] [id number] 05/07/2024 Rc You PLAN OF TREATMENT No Information
--- OUTSIDE RECORDS SUMMARY | 2024-06-08 08:12 | XMS_ITS ---
Author Organization Rc Vaishnavi Avelino ZAPATA, FACP Address [address] [place], [place] [address] Care Team Providers Care National Business Director Name Role Phone Rc You Primary Care Provider [phone] ALLERGIES Allergen (clinical drug ingredient) Drug/Non Drug [...] Encounters Encounter Location Date Provider Diagnosis Rc aVishnavi You DO, [address] [id number] 08/13/2023 Rc You Chronic systolic congestive heart failure I50.22 ; Coronary artery disease involving [place] coronary artery of [place] heart without angina pectoris I25.10 ; S/P AVR (aortic valve replacement) Z95.2 and Hyperlipidemia, unspecified hyperlipidemia type E78.5 ASSESSMENTS Encounter Date Diagnosis Assessment Notes Treatment Notes Treatment Clinical Notes 08/13/2023 Chronic systolic congestive heart failure (ICD-10 - I50.22) 08/13/2023 Coronary artery disease involving [place] coronary artery of [place] heart without angina pectoris (ICD-10 - I25.10) [...] General Examination GENERAL APPEARANCE: in no ac barrow distress, well developed, well nourished HEAD: normocephalic, atrau matic HEART: no murmurs, regular rate and rhythm, S1, S2 normal with a mechanical S2 click LUNGS: clear to auscultatio n bilaterally ABDOMEN: normal, bowel sounds present, soft, nontender, nondistended SKIN: warm and dry EXTREMITIES: no edema PSYCH: alert, oriented, cog nitive function intact
--- OUTSIDE RECORDS SUMMARY | 2024-06-08 08:12 | XMS_ITS ---
Author Organization [facility] Address [address] [place] [address] Care Team Providers Care Vp Ancillary Name Role Phone Rc You MD Primary Care Provider Unavail able Yue Lobo Unavailable [phone] Scott Cline Unavailable [phone] Allergies Allergen (clinical drug ingredient) Drug/Non Drug Allergy documented on EMR Reaction Allergy Type Onset Date Status ramipril Altace headache Drug Allergy Active acetaminophen / oxycodone Percocet vomiting Drug Allergy Active tramadol Tramadol HCl neuropathy Drug Allergy Act javier atenolol Atenolol headache Drug Allergy Active Penicillin pain Drug Allergy Active Substance with 1-jxxebla-3-methylgl utaryl-coenzyme A reductase inhibitor mechanism of action [...] 10/30/2023 Encounters Encounter Location Date Provider Diagnosis [facility] [address] [address] 10/30/2023 Scott Cline Tinea unguium B35.1 ; Pain in right toe(s) M79.674 ; Pain in left toe(s) M79.675 ; Skin disease L98.9 ; Atherosclerosis of inupiat arteries of extremities with intermittent claudication, bilateral [...] disease (ICD-10 - L98.9) 10/30/2023 Atherosclerosis of inupiat arteries of extremities with intermittent claudication, bilateral legs (ICD-10 - I70.213) 10/30/2023 Other hammer toe(s) (acquired), left foot (ICD-10 - M20.42) 10/30/2023 Other hammer toe(s) (acquired), right foot (ICD-10 - M20.41) 10/30/2023 Xerosis cutis (ICD-10 - L85.3) Plan Of Treatment Next Appt Details Follow Up: 3 Months, Reason: Provider Name:Yue reis, 09/20/2024 02:45:00 PM, [address] [place], [address], Procedure Notes * Category Sub-Category Detail Notes [...] as necessary. Patient chooses, no pharmaceutical tx (34538) Keratoma Treatment Parring or Cutting o f Benign Hyperkeratotic Lesion(s) 36441 (2-4 Lesions) - The Benign hyperkeratotic lesions, as described above were pared, and/or cut utilizing a sterile #15 blade, tissue nippers, and/or dremel, Q8 Progress Notes * Tad VILLARDOB:1940 (83 yo M)Acc No.[id number]:10/30/2023 Progress Note Patient:?Tad Villar Provider:?Scott Cline DPM :1940???Age:83 Y???Sex:Male Sam e:10/30/2023 Address:[address] [place], [place] [id number] Pcp:Rc You MD Subjective: * Chief Complaints: [...] Children, none. ?Exercise: yes, exercise/ cardiac rehab [facility] [place]. ?Marital status: single. 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 * Medications:?TakingAspirin A dult Low [...] toe(s) - M79.675?4.?Skin disease - L98.9?5.?Atherosclerosis of inupiat arteries of extremities with intermittent claudication, bilateral [...] as necessary. Patient chooses, no pharmaceutical tx (91369).?Keratoma Treatment:?Parring or Cutting of Benign Hyperkeratotic Lesion(s)?69724 (2-4 Lesions) - The Benign hyperkeratotic lesions, as described above were pared, and/or cut utilizing a sterile #15 blade, tissue nippers, and/or dremel, Q8.? * Procedure Codes:?62256 DEBRI DE NAIL, 6 OR MORE, Modifiers: XS 30396 TRIM SKIN LESIONS, 2 TO 4, Modifiers: Q8 * Follow Up:?3 Months * Images: * Sign off status: Completed true * Provider:?Scott Cline DPM Date:? 024 Generated for Gallo moralez/Alvin/eTransmitting on:?06/08/2024 08:11 AM EST History and Physical [...]
--- OUTSIDE RECORDS SUMMARY | 2024-06-08 08:13 | XMS_ITS | Patient Health Record ---
Author Organization [facility] Address [address] [place] [address] Care Team Providers Care Ux Research Associate Name Role Phone Avelino Jean-Paul ZAPATA Primary Care Provider Unavail able Jean-Paul Lemus Unavailable [phone] ALLERGIES Allergen (clinical drug ingredient) Drug/Non Drug [...] Notes Problem Hypertension (401.9) Active confirmed Hypertension (44758698) Problem Colon cancer screening (V76.51) Active confirmed Colon cancer screening (900156228) Problem Constipation, unspecified constipation type (K59.00) Active confirmed 06834926 Problem Change in bowel habits (R19.4) Active confirmed [id number] PLAN OF TREATMENT No Information Insurance Providers Payer Name Payer Address Payer Phone Subscriber Number Group Number Insured Name Patient Relationship to Insured Coverage Start Date Coverage End Date MEDICARE OF [place] [address] [place] [address] [id number] HANNAH HEIDI Self - patient is the insured MEDEX ATTN CLAIMS [address] [place] [address] [phone] [id number] HEIDI YOUNG Self - patient is the insured MEDICAL (GENERAL) HISTORY Medical History History ICD Code Hypertension Denies [place],DM,CVA,Lung disease,renal dise ase Colonoscopies in [address] 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 Dodson at [facility], pacemaker and defibrillator--sees Dr. Jade DVT in right leg in 2003 Surgical History Surgery Date(Month/Year) 4V CABG and aortic valve replacement in 2013 as above 2013 Defibrillator Pacemaker
--- OUTSIDE RECORDS SUMMARY | 2024-06-08 08:13 | XMS_ITS | Patient Health Record ---
Author Organization Rc Vaishnavi Avelino DO, FACP Address [address], [place] [id number] Care Team Providers Care Team Facilitator Name Role Phone [facility] [...] POC Reviewed date:06/12/2023 02:58:30 PM Interpretation:Therapeutic Performing Lab:[facility], [address] [place] [phone] Notes/Report: PT, INR - Anti [facility]ag Clinic 2.9 0.9-1.1 METER #: [id number] INTERNATIONAL NORMALIZED RATIO (INR) REFERENCE RANGES Reference [...] OC Reviewed date:06/12/2023 02:58:30 PM Interpretation:Therapeutic Performing Lab:[facility], [address] [place] [address] Notes/Report: Prothrombin Time Whole Bld POC 34.4 11.1-13.5 sec INR WHOLE BLOOD POC Reviewed date:06/26/2023 12:31:11 PM Interpretation:Supratherapeutic Performing Lab:[facility], [address] [place] [phone] Notes/Report: PT, INR - Anti Coag Clinic 3.6 0.9-1.1 METER #: [id number] INTERNATIONAL NORMALIZED RATIO (INR) REFERENCE RANGES Reference [...] OC Reviewed date:06/26/2023 12:31:11 PM Interpretation:Supratherapeutic Performing Lab:[facility], [address] [place] [phone] Notes/Report: Prothrombin Time Whole Bld POC 43.0 11.1-13.5 sec Complete Blood Count Auto Di ff Reviewed date:07/11/2023 03:01:39 AM Interpretation:Abnormal Performing Lab:[address] [address] Notes/Report: White Blood Count 7.6 4.8-10.8 X10*3/uL [...] Panel Reviewed date:07/11/2023 03:01:39 AM Interpretation:Normal Performing Lab:[address] [address] Notes/Report: Sodium 142 135-145 mmol/L Potassium 3.9 3.3-5.1 mmol/L Chloride 104 96-108 mmol/L Carbon Dioxide 28 22-29 mmol/L Anion Gap 14 12-20 Blood Urea Nitrogen 16 9-16 mg/dL Creatinine 1.09 0.5-1.4 mg/dL Estimated Glomerular Filt Rate > 60 NOTE: For -Argentine individuals, multiply the result by 1.210. Chronic Kidney Disease: Estimated GFR < 60 mL/min/1.73m2 Severe Kidney Disease: Estimated GFR < 15 mL/min/1.73m2 Glucose Random 105 60-115 mg/dL Calcium 9.4 8.4-10.2 mg/dL B Type Natriuretic Peptide Reviewed date:07/11/2023 03:01:39 AM Interpretation:Abnormal Performing Lab:[address] [address] Notes/Report: B Type Natriuretic Peptide 148 <100 pg/mL For those patients who are being treated with Natrecor (nesiritide, recombinant BNP), BNP testing should be performed at least two hours post treatment in order to ensure that only endogenous levels of BNP are detected. INR WHOLE BLOOD POC Reviewed date:07/11/2023 03:02:09 AM Interpretation:Therapeutic Performing Lab:[facility], [address] [place] [address] Notes/Report: PT, INR - Anti Coag Clinic 3.1 0.9-1.1 METER #: [id number] INTERNATIONAL NORMALIZED RATIO (INR) REFERENCE RANGES Reference [...] OC Reviewed date:07/11/2023 03:02:29 AM Interpretation:Therapeutic Performing Lab:[facility], [address] [place] [phone] Notes/Report: Prothrombin Time Whole Bld POC 36.9 11.1-13.5 sec INR WHOLE BLOOD POC Reviewed date:07/24/2023 12:26:18 PM Interpretation:Therapeutic Performing Lab:[facility], [address] [place] [phone] Notes/Report: PT, INR - Anti Coag Clinic 2.7 0.9-1.1 METER #: [id number] INTERNATIONAL NORMALIZED RATIO (INR) REFERENCE RANGES Reference [...] OC Reviewed date:07/24/2023 12:26:51 PM Interpretation:Therapeutic Performing Lab:[facility], [address] [place] [phone] Notes/Report: Prothrombin Time Whole Bld POC 32.5 11.1-13.5 sec INR WHOLE BLOOD POC Reviewed date:08/07/2023 06:22:09 PM Interpretation:Therapeutic Performing Lab:[facility], [address] [place] [phone] Notes/Report: PT, INR - [facility]ag Clinic 2.7 0.9-1.1 METER #: [id number] INTERNATIONAL NORMALIZED RATIO (INR) REFERENCE RANGES Reference [...] OC Reviewed date:08/07/2023 06:22:09 PM Interpretation:Therapeutic Performing Lab:[address] [address] Notes/Report: Prothrombin Time Whole Bld POC 31.8 11.1-13.5 sec INR WHOLE BLOOD POC Reviewed date:08/21/2023 10:14:55 AM Interpretation:Subtherapeutic Performing Lab:[address] [address] Notes/Report: PT, INR - [facility]ag Clinic 1.7 0.9-1.1 METER #: [id number] INTERNATIONAL NORMALIZED RATIO (INR) REFERENCE RANGES Reference [...] OC Reviewed date:08/21/2023 10:14:38 AM Interpretation:Subtherapeutic Performing Lab:[address] [address] Notes/Report: Prothrombin Time Whole Bld POC 20.6 11.1-13.5 sec INR WHOLE BLOOD POC Reviewed date:09/04/2023 04:05:12 PM Interpretation:Subtherapeutic Performing Lab:[facility], [address] [place] [phone] Notes/Report: PT, INR - [facility]ag Clinic 2.4 0.9-1.1 METER #: [id number] INTERNATIONAL NORMALIZED RATIO (INR) REFERENCE RANGES Reference [...] OC Reviewed date:09/04/2023 04:05:12 PM Interpretation:Subtherapeutic Performing Lab:[address] [address] Notes/Report: Prothrombin Time Whole Bld POC 29.3 11.1-13.5 sec INR WHOLE BLOOD POC Reviewed date:09/18/2023 01:21:34 PM Interpretation:Subtherapeutic Performing Lab:[facility], [address] [place] [address] Notes/Report: PT, INR - [facility]ag Clinic 1.8 0.9-1.1 METER #: [id number] INTERNATIONAL NORMALIZED RATIO (INR) REFERENCE RANGES Reference [...] OC Reviewed date:09/18/2023 01:21:34 PM Interpretation:Subtherapeutic Performing Lab:[facility], [address] [place] [phone] Notes/Report: Prothrombin Time Whole Bld POC 21.9 11.1-13.5 sec INR WHOLE BLOOD POC Reviewed date:10/02/2023 12:32:11 PM Interpretation:Subtherapeutic Performing Lab:[facility] [address] [place] [phone] Notes/Report: PT, INR - Anti Coag Clinic 2.2 0.9-1.1 METER #: [id number] INTERNATIONAL NORMALIZED RATIO (INR) REFERENCE RANGES Reference [...] OC Reviewed date:10/02/2023 12:32:11 PM Interpretation:Subtherapeutic Performing Lab:[facility], [address] [place] [phone] Notes/Report: Prothrombin Time Whole Bld POC 26.0 11.1-13.5 sec INR WHOLE BLOOD POC Reviewed date:10/16/2023 05:40:27 PM Interpretation:Subtherapeutic Performing Lab:[facility], [address] [place] [phone] Notes/Report: PT, INR - Anti Coag Clinic 1.6 0.9-1.1 METER #: [id number] INTERNATIONAL NORMALIZED RATIO (INR) REFERENCE RANGES Reference [...] OC Reviewed date:10/16/2023 05:40:27 PM Interpretation:Subtherapeutic Performing Lab:[facility], [address] [place] [phone] Notes/Report: Prothrombin Time Whole Bld POC 19.1 11.1-13.5 sec INR WHOLE BLOOD POC Reviewed date:10/30/2023 11:04:40 AM Interpretation:Subtherapeutic Performing Lab:[facility], [address] [place] [phone] Notes/Report: PT, INR - Anti Coag Clinic 1.8 0.9-1.1 METER #: [id number] INTERNATIONAL NORMALIZED RATIO (INR) REFERENCE RANGES Reference [...] OC Reviewed date:10/30/2023 11:04:41 AM Interpretation:Subtherapeutic Performing Lab:[facility], [address] [place] [phone] Notes/Report: Prothrombin Time Whole Bld POC 21.1 11.1-13.5 sec INR WHOLE BLOOD POC Reviewed date:11/06/2023 09:49:33 AM Interpretation:Therapeutic Performing Lab:[facility], [address] [place] [phone] Notes/Report: PT, INR - Anti Coag Clinic 2.5 0.9-1.1 METER #: [id number] INTERNATIONAL NORMALIZED RATIO (INR) REFERENCE RANGES Reference [...] OC Reviewed date:11/06/2023 09:49:33 AM Interpretation:Therapeutic Performing Lab:[address] [address] Notes/Report: Prothrombin Time Whole Bld POC 30.0 11.1-13.5 sec INR WHOLE BLOOD POC Reviewed date:11/20/2023 05:07:58 PM Interpretation:Therapeutic Performing Lab:[facility] [address] [address] Notes/Report: PT, INR - Anti Coag Clinic 3.4 0.9-1.1 METER #: [id number] INTERNATIONAL NORMALIZED RATIO (INR) REFERENCE RANGES Reference [...] OC Reviewed date:11/20/2023 05:07:58 PM Interpretation:Therapeutic Performing Lab:[address] [address] Notes/Report: Prothrombin Time Whole Bld POC 40.3 11.1-13.5 sec INR WHOLE BLOOD POC Reviewed date:12/04/2023 02:13:26 PM Interpretation:Subtherapeutic Performing Lab:[address] [address] Notes/Report: PT, INR - Anti Coag Clinic 2.1 0.9-1.1 METER #: [id number] INTERNATIONAL NORMALIZED RATIO (INR) REFERENCE RANGES Reference [...] OC Reviewed date:12/04/2023 02:13:26 PM Interpretation:Subtherapeutic Performing Lab:[address] [address] Notes/Report: Prothrombin Time Whole Bld POC 24.8 11.1-13.5 sec INR WHOLE BLOOD POC Reviewed date:12/23/2023 09:20:14 AM Interpretation:Subtherapeutic Performing Lab:[address] [place] [address] Notes/Report: PT, INR - Anti Coag Clinic 2.4 0.9-1.1 METER #: [id number] INTERNATIONAL NORMALIZED RATIO (INR) REFERENCE RANGES Reference [...] OC Reviewed date:12/23/2023 09:20:14 AM Interpretation:Subtherapeutic Performing Lab:[address] [address] Notes/Report: Prothrombin Time Whole Bld POC 29.1 11.1-13.5 sec INR WHOLE BLOOD POC Reviewed date:01/08/2024 05:36:01 PM Interpretation:Subtherapeutic Performing Lab:[address] [address] Notes/Report: PT, INR - Anti Coag Clinic 2.0 0.9-1.1 METER #: [id number] INTERNATIONAL NORMALIZED RATIO (INR) REFERENCE RANGES Reference [...] OC Reviewed date:01/08/2024 05:36:52 PM Interpretation:Subtherapeutic Performing Lab:[address] [address] Notes/Report: Prothrombin Time Whole Bld POC 24.2 11.1-13.5 sec INR WHOLE BLOOD POC Reviewed date:01/22/2024 04:15:39 PM Interpretation:Subtherapeutic Performing Lab:[address] [place] [address] Notes/Report: PT, INR - Anti Coag Clinic 2.4 0.9-1.1 METER #: [id number] INTERNATIONAL NORMALIZED RATIO (INR) REFERENCE RANGES Reference [...] OC Reviewed date:01/22/2024 04:15:39 PM Interpretation:Subtherapeutic Performing Lab:[address] [address] Notes/Report: Prothrombin Time Whole Bld POC 28.7 11.1-13.5 sec INR WHOLE BLOOD POC Reviewed date:02/06/2024 12:01:20 PM Interpretation:Subtherapeutic Performing Lab:[address] [address] Notes/Report: PT, INR - Anti Coag Clinic 1.8 0.9-1.1 METER #: [id number] INTERNATIONAL NORMALIZED RATIO (INR) REFERENCE RANGES Reference [...] OC Reviewed date:02/06/2024 12:01:20 PM Interpretation:Subtherapeutic Performing Lab:[address] [address] Notes/Report: Prothrombin Time Whole Bld POC 21.5 11.1-13.5 sec INR WHOLE BLOOD POC Reviewed date:02/19/2024 11:14:27 AM Interpretation:Subtherapeutic Performing Lab:[facility] [address] Notes/Report: PT, INR - Anti Coag Clinic 1.8 0.9-1.1 METER #: [id number] INTERNATIONAL NORMALIZED RATIO (INR) REFERENCE RANGES Reference [...] OC Reviewed date:02/19/2024 11:14:27 AM Interpretation:Subtherapeutic Performing Lab:[address] [address] Notes/Report: Prothrombin Time Whole Bld POC 21.1 11.1-13.5 sec Complete Blood Count Auto Di ff Reviewed date:02/20/2024 09:36:20 AM Interpretation:Abnormal Performing Lab:[address] [address] Notes/Report: White Blood Count 6.9 4.8-10.8 X10*3/uL [...] NRBC Abs Auto 0.000 0.0-0.012 X10*3/uL Comprehensive [place]. Panel Fa st Reviewed date:02/20/2024 09:36:02 AM Interpretation:Abnormal Performing Lab:[facility], [address] [place] [phone] Notes/Report: Sodium 141 135-145 mmol/L Potassium 3.9 3.3-5.1 mmol/L Chloride 104 96-108 mmol/L Carbon Dioxide 31 22-29 mmol/L Anion Gap 10 12-20 Blood Urea Nitrogen 19 9-16 mg/dL Creatinine 1.25 0.5-1.4 mg/dL Estimated Glomerular Filt Rate 55 NOTE: For -Argentine individuals, multiply the result by 1.210. Chronic [...] Peptide Reviewed date:02/20/2024 09:36:02 AM Interpretation:Abnormal Performing Lab:[facility], [address] [place] [phone] Notes/Report: B Type Natriuretic Peptide 101 <100 pg/mL For those patients who are being treated with Natrecor (nesiritide, recombinant BNP), BNP testing should be performed at least two hours post treatment in order to ensure that only endogenous levels of BNP are detected. Lipid Panel Reviewed date:02/20/2024 09:36:02 AM Interpretation:Abnormal Performing Lab:[facility], [address] [place] [phone] Notes/Report: Triglycerides 88 <150 mg/dL Desirable Triglyceride: [...] Hormone Reviewed date:02/20/2024 09:36:02 AM Interpretation:Normal Performing Lab:[facility], [address] [place] [address] Notes/Report: Thyroid Stimulating Hormone 2.86 0.32-4.0 uIU/ mL Note: A sustained TSH level above 2.5 uIU/mL may warrant further investigation. TSH 3rd Generation ([facility]) INR WHOLE BLOOD POC Reviewed date:02/26/2024 12:07:23 PM Interpretation:Subtherapeutic Performing Lab:[facility], [address] [place] [address] Notes/Report: PT, INR - Anti Coag Clinic 2.4 0.9-1.1 METER #: [id number] INTERNATIONAL NORMALIZED RATIO (INR) REFERENCE RANGES Reference [...] OC Reviewed date:02/26/2024 12:07:23 PM Interpretation:Subtherapeutic Performing Lab:[facility], [address] [place] [phone] Notes/Report: Prothrombin Time Whole Bld POC 28.6 11.1-13.5 sec INR WHOLE BLOOD POC Reviewed date:03/04/2024 09:09:11 AM Interpretation:Therapeutic Performing Lab:[facility], [address] [place] [phone] Notes/Report: PT, INR - Anti Coag Clinic 2.5 0.9-1.1 METER #: [id number] INTERNATIONAL NORMALIZED RATIO (INR) REFERENCE RANGES Reference [...] OC Reviewed date:03/04/2024 09:09:11 AM Interpretation:Therapeutic Performing Lab:[facility], [address] [place] [address] Notes/Report: Prothrombin Time Whole Bld POC 29.8 11.1-13.5 sec INR WHOLE BLOOD POC Reviewed date:03/18/2024 11:44:06 AM Interpretation:Subtherapeutic Performing Lab:[facility], [address] [place] [phone] Notes/Report: PT, INR - Anti Coag Clinic 2.3 0.9-1.1 METER #: [id number] INTERNATIONAL NORMALIZED RATIO (INR) REFERENCE RANGES Reference [...] OC Reviewed date:03/18/2024 11:44:06 AM Interpretation:Subtherapeutic Performing Lab:[facility], [address] [place] [phone] Notes/Report: Prothrombin Time Whole Bld POC 27.6 11.1-13.5 sec INR WHOLE BLOOD POC Reviewed date:04/01/2024 11:18:04 AM Interpretation:Subtherapeutic Performing Lab:[facility], [address] [place] [phone] Notes/Report: PT, INR - Anti Coag Clinic 1.5 0.9-1.1 METER #: [id number] INTERNATIONAL NORMALIZED RATIO (INR) REFERENCE RANGES Reference [...] OC Reviewed date:04/01/2024 11:18:04 AM Interpretation:Subtherapeutic Performing Lab:[facility], [address] [place] [address] Notes/Report: Prothrombin Time Whole Bld POC 17.5 11.1-13.5 sec INR WHOLE BLOOD POC Reviewed date:04/08/2024 12:30:51 PM Interpretation:Therapeutic Performing Lab:[facility], [address] [place] [address] Notes/Report: PT, INR - Anti Coag Clinic 3.3 0.9-1.1 METER #: [id number] INTERNATIONAL NORMALIZED RATIO (INR) REFERENCE RANGES Reference [...] OC Reviewed date:04/08/2024 12:30:51 PM Interpretation:Therapeutic Performing Lab:[facility], [address] [place] [phone] Notes/Report: Prothrombin Time Whole Bld POC 40.1 11.1-13.5 sec INR WHOLE BLOOD POC Reviewed date:04/22/2024 09:03:12 AM Interpretation:Subtherapeutic Performing Lab:[facility], [address] [place] [address] Notes/Report: PT, INR - Anti Coag Clinic 1.9 0.9-1.1 METER #: [id number] INTERNATIONAL NORMALIZED RATIO (INR) REFERENCE RANGES Reference [...] OC Reviewed date:04/22/2024 09:03:12 AM Interpretation:Subtherapeutic Performing Lab:[facility], [address] [place] [phone] Notes/Report: Prothrombin Time Whole Bld POC 22.5 11.1-13.5 sec INR WHOLE BLOOD POC Reviewed date:05/06/2024 10:42:32 AM Interpretation:Subtherapeutic Performing Lab:[facility], [address] [place] [phone] Notes/Report: PT, INR - Anti Coag Clinic 2.2 0.9-1.1 METER #: [id number] INTERNATIONAL NORMALIZED RATIO (INR) REFERENCE RANGES Reference [...] OC Reviewed date:05/06/2024 10:42:32 AM Interpretation:Subtherapeutic Performing Lab:[facility], [address] [place] [phone] Notes/Report: Prothrombin Time Whole Bld POC 26.0 11.1-13.5 sec INR WHOLE BLOOD POC Reviewed date:05/20/2024 12:13:06 PM Interpretation:Subtherapeutic Performing Lab:[facility], [address] [place] [address] Notes/Report: PT, INR - Anti Coag Clinic 2.1 0.9-1.1 METER #: [id number] INTERNATIONAL NORMALIZED RATIO (INR) REFERENCE RANGES Reference [...] OC Reviewed date:05/20/2024 12:13:06 PM Interpretation:Subtherapeutic Performing Lab:[facility], [address] [place] [address] Notes/Report: Prothrombin Time Whole Bld POC 25.3 11.1-13.5 sec INR WHOLE BLOOD POC Reviewed date:06/03/2024 11:35:39 AM Interpretation:Subtherapeutic Performing Lab:[facility], [address] [place] [phone] Notes/Report: PT, INR - Anti Coag Clinic 1.6 0.9-1.1 METER #: [id number] INTERNATIONAL NORMALIZED RATIO (INR) REFERENCE RANGES Reference [...] OC Reviewed date:06/03/2024 11:35:39 AM Interpretation:Subtherapeutic Performing Lab:[facility], [address] [place] [address], [place] [address] Notes/Report: Prothrombin Time Whole Bld POC 18.8 11.1-13.5 sec REASON FOR REFERRAL Reason Persistent left sacr al/pelvic pain s/p fall Diagnosis 1 Unspecified injury o f lower back, initial encounter (S39.92XA) Referral Organization Rc Wyatt FACP Referring Provider First Name Rc Referring Provider Last Name Avelino Referring Provider Speciality Internal M edicine Referred Provider [facility] [place], Physical Therap y Referred Provider Specialty Physical [...] him.Renaldo Joan 05/07/2024 04:25:08 PM EST > [facility] Rheumatology is not accepting new patients.Avelino Robert M 05/07/2024 05:40:16 PM EST > [facility] 09:24:10 AM EST > Patient called and said he will not go to [place] and he will figure something else out. 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) Active confirmed 99969452 Problem Age-related cataract of both eyes, unspecified age-related cataract type (H25.9) Active confirmed 54551522 Problem Unspecified osteoarthritis, unspecified site (M19.90) Active confirmed Osteoarthritis (986737786) VITAL SIGNS Blood pressure diastolic 76 mm Hg 02/18/2024 Height 69 in 02/18/2024 Blood pressure systolic 152 mm Hg 02/18/2024 Weight 268 lbs 02/18/2024 BMI 39.57 kg/m2 02/18/2024 Encounters Encounter Location Date Provider Diagnosis Rc You DO, [address] [id number] 08/13/2023 Rc You Chronic systolic congestive heart failure I50.22 ; Coronary artery disease involving zuni coronary artery of zuni heart without angina pectoris I25.10 ; S/P AVR (aortic valve replacement) Z95.2 and Hyperlipidemia, unspecified hyperlipidemia type E78.5 Rc You DO, [address] [id number] 02/18/2024 Rc You Essential hypertensi on I10 ; S/P AVR (aortic valve replacement) Z95.2 ; Hyperlipidemia, unspecified hyperlipidemia type E78.5 ; Chronic systolic congestive heart failure I50.22 and Coronary artery disease involving zuni coronary artery of zuni heart without angina pectoris I25.10 Rc You DO, [address] [id number] 06/27/2023 Rc You DO, [address] [id number] 05/07/2024 Rc You ASSESSMENTS Encounter Date Diagnosis Assessment Notes Treatment Notes Treatment Clinical Notes 08/13/2023 Chronic systolic congestive heart failure (ICD-10 - I50.22) 08/13/2023 Coronary artery disease involving zuni coronary artery of zuni heart without angina pectoris (ICD-10 - I25.10) 02/18/2024 Essential hypertension (ICD-10 - I10) 02/18/2024 S/P AVR (aortic valv e replacement) (ICD-10 - Z95.2) 08/13/2023 S/P AVR (aortic valv e replacement) (ICD-10 - Z95.2) 02/18/2024 Hyperlipidemia, unspecified hyperlipidemia type (ICD-10 - E78.5) 08/13/2023 Hyperlipidemia, unspecified hyperlipidemia type (ICD-10 - E78.5) 02/18/2024 Chronic systolic congestive heart failure (ICD-10 - I50.22) 02/18/2024 Coronary artery disease involving zuni coronary artery of zuni heart without angina pectoris (ICD-10 - I25.10) PLAN OF TREATMENT No Information Insurance Providers Payer Name Payer Address Payer Phone Subscriber Number Group Number Insured Name Patient Relationship to Insured Coverage Start Date Coverage End Date MEDICARE [address] [place] [phone] [id number] Tad Villar Self - patient is the insured [employer] [address] [id number] [address] [id number] Tad Villar Self - patient is the [...]
[2024-06-08 08:24] LABS: Prothrombin Time Whole Bld POC 22.6 sec (11.1-13.5); ~PT, ~INR - Anti Coag Clinic 1.9 (0.9-1.1)
--- NOTE | 2024-06-08 08:29 | MHC.OFFVISCO ---
Intake Intake Visit Reasons: Anticoagulation Allergies Penicillins [PENICILLINS] Allergy (Severe, Verified 06/08/24 08:15) HIVES Medication List - Last Reconciled 06/08/24 by Janet Scruggs RN atorvastatin 40 mg PO DAILY celecoxib (Celebrex) 100 mg PO BID furosemide 80mg in the AM and 40mg in the PM orally daily; 30 days lisinopril 40 mg PO DAILY metoprolol succinate ER 50 mg PO DAILY multivit,calc,gqt-VQ-X3-lycop 240 mcg-30 mcg- 300 mcg (One-A-Day Men's Complete) 1 tab PO DAILY warfarin 5 mg See Protocol PO DAILY Nursing Note Amb to [facility] feeling ok, sts finally getting relief from the pain in the morning taking the celebrex Is currently not taking the atorvastatin but expects to resume that on 06/10 Sts he is having itchy feeling but it is better than the pain denies any diff breathing or scratchy throat Sts he also drank wine over the weekend instead of usual beer Medications and supplements reviewed as noted above No other changes in health, diet, medications, or supplements, Denies any signs and symptoms of bleeding, bruising, or clotting. Bleeding, bruising, clotting discussed INR 1.9 still below therapeutic range Dose: to increase dose today to 5mg, take 2.5mg tomorrow (vs 5mg) 2.5mg as usual on and increase Friday dose to 5mg then 2.5mg daily until seen on 06/15 encouraged to eat a healthy diet and to limit alcohol intake F/U INR: 1 week Patient verbalizes understanding of instructions given Anti-Coag Initial Assessment Social Hx Patient Tobacco Use Status: Former Tobacco user alcohol intake: current Alcohol intake frequency: a few times a month Coding Level of Care Code Est Patient Level 1 Diagnoses Current use of anticoagulant therapy Z79.01 Time Spent (min) 15 Assessment & Plan Assessment & Plan (1) Current use of anticoagulant therapy: Code(s): Z79.01 - half-way (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
== END 2024-06-08 08:59 | disposition home or self-care (01) ==
LOC: HO.ACS 08:10
PROVIDERS: PCP Internal Medicine; Visit Provider Internal Medicine
DX: Z79.01 Long term (current) use of anticoagulants (principal)

== ENCOUNTER → 2024-06-08 08:10 | Outpatient (BNVA) | payer MEDICARE, SELFPAY | PROVIDERS: PCP Internal Medicine; Visit Provider Internal Medicine | DX: Z95.2 Presence of prosthetic heart valve (principal); Z79.01 Long term (current) use of anticoagulants; Z51.81 Encounter for therapeutic drug level monitoring | CPT/HCPCS: 85610; 99211 ==

== ENCOUNTER 2024-06-15 08:04 | Outpatient (AMB) | payer MEDICARE, SELFPAY ==
--- OUTSIDE RECORDS SUMMARY | 2024-06-15 08:07 | XMS_ITS ---
Author Organization [facility] Address [address] [place] [address] Care Team Providers Care Hospital Administrator Name Role Phone Rc You MD Primary Care Provider Unavail able Yue Lobo Unavailable [phone] Allergies Allergen (clinical drug ingredient) Drug/Non Drug Allergy documented on EMR Reaction Allergy Type Onset Date Status ramipril Altace headache Drug Allergy Active acetaminophen / oxycodone Percocet vomiting Drug Allergy Active tramadol Tramadol HCl neuropathy Drug Allergy Act javier atenolol Atenolol headache Drug Allergy Active Penicillin pain Drug Allergy Active Substance with 8-tjrinnn-2-methylgl utaryl-coenzyme A reductase inhibitor mechanism of action [...] W/U Status Risk Notes Problem Atherosclerosis of [place] artery of both lower extremities, with unspecified presence of clinical manifestation (I70.203) Active confirmed Q7(A), Q8(2B), Q9(1B,2C) Vital Signs Height 5 ft 10 in in 05/03/2024 Weight 260 lbs 05/03/2024 BMI 37.3 kg/m2 05/03/2024 Blood pressure systolic 121 mm Hg 05/03/20 24 Blood pressure diastolic 79 mm Hg 024 Procedures Procedure Date Ordered Date Performed Result Body Sit e 49043-IOTAXFC NAIL, 6 OR MORE 05/03/2024 N/A 41479-XKYO SKIN LESIONS, OVER 4 05/03/2024 N/A Encounters Encounter Location Date Provider Diagnosis [facility] [place] [address] [place] [address] 05/03/2024 Yue Lobo Atherosclerosis of [place] artery of both lower extremities, with unspecified presence of clinical manifestation I70.203 ; Tinea unguium B35.1 ; Pain in right toe(s) M79.674 and Pain in left toe(s) M79.675 Assessments Encounter Date Diagnosis (ICD Code) Assessment Notes Treatment Notes Treatment Clinical Notes Section Notes 05/03/2024 Atherosclerosis of [place] artery of both lower extremities, with unspecified presence of clinical manifestation (ICD-10 - I70.203) Q7(A), Q8(2B), Q9(1B,2C) 05/03/2024 Tinea unguium (ICD-10 - B35.1) 05/03/2024 Pain in right toe(s) (ICD-10 - M79.674) 05/03/2024 Pain in left toe(s) (ICD-10 - M79.675) Plan Of Treatment Pending Test Test Name Order Date 44637-FBOIFHC NAIL, 6 OR MORE 05/03/2024 64222-QKCD SKIN LESIONS, OVER 4 05/03/20 24 Next Appt Details Follow Up: prn, Reason: Provider Name:Yue Graham smiley, 09/20/2024 02:45:00 PM, [address] [place], [address], Procedure Notes * Category Sub-Category Detail Notes [...] use of a nail nipper and/or dremel-type grinder brake lining, to a more viable healthy nail plate or bed tissue 6-10. Silver nitrate used for any petechial bleeding as necessary. Definitive antifungal treatment options have been reviewed and discussed with the patient. The patient chooses, no pharmaceutical tx - 47297 Keratoma Treatment Parring or Cutting o f Benign Hyperkeratotic Lesion(s) (-57) More than 4 Lesions - The Benign hyperkeratotic lesions, as described in exam, were pared, and/or cut utilizing a sterile 15 blade, tissue nippers, and/or dremel - 35633, Q8 Progress Notes * Tad VILLARDOB:1940 (84 yo M)Acc No.[id number]:05/03/2024 Progress Note Patient:?Tad VILLAR Provider:?Yue Lobo DPM :1940???Age:84 Y???Sex:Male Sam e:05/03/2024 Address:[address] [place], [place] [id number] Pcp:Rc You MD Subjective: * Chief Complaints: [...] no, none. ?Exercise: yes, exercise/ cardiac rehab [facility] [place]. ?Marital status: single. 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 * Medications:?TakingAspirin A dult Low [...] 1.?Tinea unguium - B35.1 (Pr imary)???2.?Atherosclerosis of [place] artery of both lower extremities, with unspecified presence of clinical manifestation - I70.203???Notes :Q7(A), Q8(2B), Q9(1B,2C)???3.?Pain in right toe(s) - M79.674???4.?Pain in left toe(s) - M79.675??? Plan: * Treatment: 2.?Atherosclerosis of [place] artery of both lower extremities, with unspecified presence of clinical manifestation?Procedure: 41816-SABP SKIN LESIONS, OVER 4 * Procedures:?Debride Nail [...] use of a nail nipper and/or dremel-type grinder brake lining, to a more viable healthy nail plate or bed tissue 6-10. Silver nitrate used for any petechial bleeding as necessary. Definitive antifungal treatment options have been reviewed and discussed with the patient. The patient chooses, no pharmaceutical tx - 87355.?Keratoma Treatment:?Parring or Cutting of Benign Hyperkeratotic Lesion(s)?(-57) More than 4 Lesions - The Benign hyperkeratotic lesions, as described in exam, were pared, and/or cut utilizing a sterile 15 blade, tissue nippers, and/or dremel - 06046, Q8.? * Procedure Codes:?14538 DEBRI DE NAIL, 6 OR MORE, Modifiers: XS 38370 TRIM SKIN LESIONS, OVER 4, Modifiers: XS , Q8 * Follow Up:?prn * Images: * Sign off status: Completed true * Provider:?Yue Lobo DPM Date:?07/03/2023 Generated for Gallo moralez/Alvin/Tyrese on:?06/15/2024 08:07 AM EST History and Physical Notes * [...]
--- OUTSIDE RECORDS SUMMARY | 2024-06-15 08:07 | XMS_ITS ---
Author Organization [facility] Address [address] [place] [address] Care Team Providers Care Cardiology Tech Name Role Phone Rc You MD Primary Care Provider Unavail able Yue Lobo Unavailable [phone] Scott Cline Unavailable [phone] Allergies Allergen (clinical drug ingredient) Drug/Non Drug Allergy documented on EMR Reaction Allergy Type Onset Date Status ramipril Altace headache Drug Allergy Active acetaminophen / oxycodone Percocet vomiting Drug Allergy Active tramadol Tramadol HCl neuropathy Drug Allergy Act javier atenolol Atenolol headache Drug Allergy Active Penicillin pain Drug Allergy Active Substance with 0-myxutrn-4-methylgl utaryl-coenzyme A reductase inhibitor mechanism of action [...] 024 Encounters Encounter Location Date Provider Diagnosis [facility] [place] [address] [place] [address] 02/02/2024 Scott Cline Tinea unguium B35.1 ; Pain in right toe(s) M79.674 ; Pain in left toe(s) M79.675 ; Skin disease L98.9 ; Atherosclerosis of [place] arteries of extremities with intermittent claudication, bilateral [...] disease (ICD-10 - L98.9) 02/02/2024 Atherosclerosis of the [place] arteries of extremities with intermittent claudication, bilateral legs (ICD-10 - I70.213) 02/02/2024 Other hammer toe(s) (acquired), left foot (ICD-10 - M20.42) 02/02/2024 Other hammer toe(s) (acquired), right foot (ICD-10 - M20.41) 02/02/2024 Xerosis cutis (ICD-10 - L85.3) Plan Of Treatment Next Appt Details Follow Up: 3 Months, Reason: Provider Name:Yue reis, 09/20/2024 02:45:00 PM, [address] [place], [address], Procedure Notes * Category Sub-Category Detail Notes [...] as necessary. Patient chooses, no pharmaceutical tx (15475) Keratoma Treatment Parring or Cutting o f Benign Hyperkeratotic Lesion(s) 87555 (2-4 Lesions) - The Benign hyperkeratotic lesions, as described above were pared, and/or cut utilizing a sterile #15 blade, tissue nippers, and/or dremel, Q8 Progress Notes * Tad VILLARDOB:1940 (83 yo M)Acc No.[id number]:02/02/2024 Progress Note Patient:?Tad Villar Provider:?Scott Cline DPM :1940???Age:83 Y???Sex:Male Sam e:02/02/2024 Address:[address] [place], [place] [id number] Pcp:Rc You MD Subjective: * Chief Complaints: [...] Children, none. ?Exercise: yes, exercise/ cardiac rehab [facility] [place]. ?Marital status: single. 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 * Medications:?TakingAspirin A dult Low [...] toe(s) - M79.675?4.?Skin disease - L98.9?5.?Atherosclerosis of the [place] arteries of extremities with intermittent claudication, bilateral [...] as necessary. Patient chooses, no pharmaceutical tx (44438).?Keratoma Treatment:?Parring or Cutting of Benign Hyperkeratotic Lesion(s)?87078 (2-4 Lesions) - The Benign hyperkeratotic lesions, as described above were pared, and/or cut utilizing a sterile #15 blade, tissue nippers, and/or dremel, Q8.? * Procedure Codes:?24088 DEBRI DE NAIL, 6 OR MORE, Modifiers: XS 18981 TRIM SKIN LESIONS, 2 TO 4, Modifiers: Q8 * Follow Up:?3 Months * Images: * Sign off status: Completed true * Provider:?Scott Cline DPM Date:? 024 Generated for Gallo moralez/Alvin/eTtricesmthomas on:?06/15/2024 08:07 AM EST History and Physical [...]
--- OUTSIDE RECORDS SUMMARY | 2024-06-15 08:08 | XMS_ITS | Patient Health Record ---
Author Organization Rc Vaishnavi Avelino DO, FACP Address [address], [place] [id number] Care Team Providers Care Nurse Practitioner Physician Assistant Name Role Phone [facility] [...] Range Notes INR WHOLE BLOOD POC Reviewed date:06/26/2023 12:31:11 PM Interpretation:Supratherapeutic Performing Lab:[facility], [address] [place] [phone] Notes/Report: PT, INR - [facility] 3.6 0.9-1.1 METER #: [id number] INTERNATIONAL NORMALIZED RATIO (INR) REFERENCE RANGES Reference [...] OC Reviewed date:06/26/2023 12:31:11 PM Interpretation:Supratherapeutic Performing Lab:[facility], [address] [place] [phone] Notes/Report: Prothrombin Time Whole Bld POC 43.0 11.1-13.5 sec Complete Blood Count Auto Di ff Reviewed date:07/11/2023 03:01:39 AM Interpretation:Abnormal Performing Lab:[facility], [address] [place] [phone] Notes/Report: White Blood Count 7.6 4.8-10.8 X10*3/uL [...] Panel Reviewed date:07/11/2023 03:01:39 AM Interpretation:Normal Performing Lab:[facility], [address] [place] [phone] Notes/Report: Sodium 142 135-145 mmol/L Potassium 3.9 3.3-5.1 mmol/L Chloride 104 96-108 mmol/L Carbon Dioxide 28 22-29 mmol/L Anion Gap 14 12-20 Blood Urea Nitrogen 16 9-16 mg/dL Creatinine 1.09 0.5-1.4 mg/dL Estimated Glomerular Filt Rate > 60 NOTE: For -[place] individuals, multiply the result by 1.210. Chronic Kidney Disease: Estimated GFR < 60 mL/min/1.73m2 Severe Kidney Disease: Estimated GFR < 15 mL/min/1.73m2 Glucose Random 105 60-115 mg/dL Calcium 9.4 8.4-10.2 mg/dL B Type Natriuretic Peptide Reviewed date:07/11/2023 03:01:39 AM Interpretation:Abnormal Performing Lab:[address] [phone] Notes/Report: B Type Natriuretic Peptide 148 <100 pg/mL For those patients who are being treated with Natrecor (nesiritide, recombinant BNP), BNP testing should be performed at least two hours post treatment in order to ensure that only endogenous levels of BNP are detected. INR WHOLE BLOOD POC Reviewed date:07/11/2023 03:02:09 AM Interpretation:Therapeutic Performing Lab:[address] [phone] Notes/Report: PT, INR - Anti Coag Clinic 3.1 0.9-1.1 METER #: [id number] INTERNATIONAL NORMALIZED RATIO (INR) REFERENCE RANGES Reference [...] OC Reviewed date:07/11/2023 03:02:29 AM Interpretation:Therapeutic Performing Lab:[facility], [address] [place] [phone] Notes/Report: Prothrombin Time Whole Bld POC 36.9 11.1-13.5 sec INR WHOLE BLOOD POC Reviewed date:07/24/2023 12:26:18 PM Interpretation:Therapeutic Performing Lab:[facility], [address] [place] [phone] Notes/Report: PT, INR - [facility] 2.7 0.9-1.1 METER #: [id number] INTERNATIONAL NORMALIZED RATIO (INR) REFERENCE RANGES Reference [...] OC Reviewed date:07/24/2023 12:26:51 PM Interpretation:Therapeutic Performing Lab:[facility], [address] [place] [phone] Notes/Report: Prothrombin Time Whole Bld POC 32.5 11.1-13.5 sec INR WHOLE BLOOD POC Reviewed date:08/07/2023 06:22:09 PM Interpretation:Therapeutic Performing Lab:[facility], [address] [place] [phone] Notes/Report: PT, INR - [facility] 2.7 0.9-1.1 METER #: [id number] INTERNATIONAL NORMALIZED RATIO (INR) REFERENCE RANGES Reference [...] OC Reviewed date:08/07/2023 06:22:09 PM Interpretation:Therapeutic Performing Lab:[facility], [address] [place] [phone] Notes/Report: Prothrombin Time Whole Bld POC 31.8 11.1-13.5 sec INR WHOLE BLOOD POC Reviewed date:08/21/2023 10:14:55 AM Interpretation:Subtherapeutic Performing Lab:[facility], [address] [place] [phone] Notes/Report: PT, INR - [facility] 1.7 0.9-1.1 METER #: [id number] INTERNATIONAL NORMALIZED RATIO (INR) REFERENCE RANGES Reference [...] OC Reviewed date:08/21/2023 10:14:38 AM Interpretation:Subtherapeutic Performing Lab:[facility], [address] [place] [phone] Notes/Report: Prothrombin Time Whole Bld POC 20.6 11.1-13.5 sec INR WHOLE BLOOD POC Reviewed date:09/04/2023 04:05:12 PM Interpretation:Subtherapeutic Performing Lab:[facility], [address] [place] [phone] Notes/Report: PT, INR - [facility] 2.4 0.9-1.1 METER #: [id number] INTERNATIONAL NORMALIZED RATIO (INR) REFERENCE RANGES Reference [...] OC Reviewed date:09/04/2023 04:05:12 PM Interpretation:Subtherapeutic Performing Lab:[facility], [address] [place] [phone] Notes/Report: Prothrombin Time Whole Bld POC 29.3 11.1-13.5 sec INR WHOLE BLOOD POC Reviewed date:09/18/2023 01:21:34 PM Interpretation:Subtherapeutic Performing Lab:[facility], [address] [place] [phone] Notes/Report: PT, INR - [facility] 1.8 0.9-1.1 METER #: [id number] INTERNATIONAL NORMALIZED RATIO (INR) REFERENCE RANGES Reference [...] OC Reviewed date:09/18/2023 01:21:34 PM Interpretation:Subtherapeutic Performing Lab:[facility], [address] [place] [phone] Notes/Report: Prothrombin Time Whole Bld POC 21.9 11.1-13.5 sec INR WHOLE BLOOD POC Reviewed date:10/02/2023 12:32:11 PM Interpretation:Subtherapeutic Performing Lab:[facility], [address] [place] [phone] Notes/Report: PT, INR - [facility] 2.2 0.9-1.1 METER #: [id number] INTERNATIONAL NORMALIZED RATIO (INR) REFERENCE RANGES Reference [...] OC Reviewed date:10/02/2023 12:32:11 PM Interpretation:Subtherapeutic Performing Lab:[facility], [address] [place] [phone] Notes/Report: Prothrombin Time Whole Bld POC 26.0 11.1-13.5 sec INR WHOLE BLOOD POC Reviewed date:10/16/2023 05:40:27 PM Interpretation:Subtherapeutic Performing Lab:[facility], [address] [place] [phone] Notes/Report: PT, INR - [facility] 1.6 0.9-1.1 METER #: [id number] INTERNATIONAL NORMALIZED RATIO (INR) REFERENCE RANGES Reference [...] OC Reviewed date:10/16/2023 05:40:27 PM Interpretation:Subtherapeutic Performing Lab:[facility], [address] [place] [phone] Notes/Report: Prothrombin Time Whole Bld POC 19.1 11.1-13.5 sec INR WHOLE BLOOD POC Reviewed date:10/30/2023 11:04:40 AM Interpretation:Subtherapeutic Performing Lab:[facility], [address] [place] [phone] Notes/Report: PT, INR - [facility] 1.8 0.9-1.1 METER #: [id number] INTERNATIONAL NORMALIZED RATIO (INR) REFERENCE RANGES Reference [...] OC Reviewed date:10/30/2023 11:04:41 AM Interpretation:Subtherapeutic Performing Lab:[facility], [address] [place] [phone] Notes/Report: Prothrombin Time Whole Bld POC 21.1 11.1-13.5 sec INR WHOLE BLOOD POC Reviewed date:11/06/2023 09:49:33 AM Interpretation:Therapeutic Performing Lab:[facility], [address] [place] [address] Notes/Report: PT, INR - [facility] 2.5 0.9-1.1 METER #: [id number] INTERNATIONAL NORMALIZED RATIO (INR) REFERENCE RANGES Reference [...] OC Reviewed date:11/06/2023 09:49:33 AM Interpretation:Therapeutic Performing Lab:[facility], [address] [place] [phone] Notes/Report: Prothrombin Time Whole Bld POC 30.0 11.1-13.5 sec INR WHOLE BLOOD POC Reviewed date:11/20/2023 05:07:58 PM Interpretation:Therapeutic Performing Lab:[facility], [address] [place] [phone] Notes/Report: PT, INR - [facility] 3.4 0.9-1.1 METER #: [id number] INTERNATIONAL NORMALIZED RATIO (INR) REFERENCE RANGES Reference [...] OC Reviewed date:11/20/2023 05:07:58 PM Interpretation:Therapeutic Performing Lab:[facility], [address] [place] [phone] Notes/Report: Prothrombin Time Whole Bld POC 40.3 11.1-13.5 sec INR WHOLE BLOOD POC Reviewed date:12/04/2023 02:13:26 PM Interpretation:Subtherapeutic Performing Lab:[address] [phone] Notes/Report: PT, INR - [facility] 2.1 0.9-1.1 METER #: [id number] INTERNATIONAL NORMALIZED RATIO (INR) REFERENCE RANGES Reference [...] OC Reviewed date:12/04/2023 02:13:26 PM Interpretation:Subtherapeutic Performing Lab:[address] [phone] Notes/Report: Prothrombin Time Whole Bld POC 24.8 11.1-13.5 sec INR WHOLE BLOOD POC Reviewed date:12/23/2023 09:20:14 AM Interpretation:Subtherapeutic Performing Lab:[address] [phone] Notes/Report: PT, INR - [facility] 2.4 0.9-1.1 METER #: [id number] INTERNATIONAL NORMALIZED RATIO (INR) REFERENCE RANGES Reference [...] OC Reviewed date:12/23/2023 09:20:14 AM Interpretation:Subtherapeutic Performing Lab:[address] [phone] Notes/Report: Prothrombin Time Whole Bld POC 29.1 11.1-13.5 sec INR WHOLE BLOOD POC Reviewed date:01/08/2024 05:36:01 PM Interpretation:Subtherapeutic Performing Lab:[facility], [address] [place] [phone] Notes/Report: PT, INR - [facility] 2.0 0.9-1.1 METER #: [id number] INTERNATIONAL NORMALIZED RATIO (INR) REFERENCE RANGES Reference [...] OC Reviewed date:01/08/2024 05:36:52 PM Interpretation:Subtherapeutic Performing Lab:[address] [phone] Notes/Report: Prothrombin Time Whole Bld POC 24.2 11.1-13.5 sec INR WHOLE BLOOD POC Reviewed date:01/22/2024 04:15:39 PM Interpretation:Subtherapeutic Performing Lab:[facility], [address] [place] [phone] Notes/Report: PT, INR - [facility] 2.4 0.9-1.1 METER #: [id number] INTERNATIONAL NORMALIZED RATIO (INR) REFERENCE RANGES Reference [...] OC Reviewed date:01/22/2024 04:15:39 PM Interpretation:Subtherapeutic Performing Lab:[address] [phone] Notes/Report: Prothrombin Time Whole Bld POC 28.7 11.1-13.5 sec INR WHOLE BLOOD POC Reviewed date:02/06/2024 12:01:20 PM Interpretation:Subtherapeutic Performing Lab:[facility] [address] [place] [phone] Notes/Report: PT, INR - [facility]ag Clinic 1.8 0.9-1.1 METER #: [id number] INTERNATIONAL NORMALIZED RATIO (INR) REFERENCE RANGES Reference [...] OC Reviewed date:02/06/2024 12:01:20 PM Interpretation:Subtherapeutic Performing Lab:[address] [phone] Notes/Report: Prothrombin Time Whole Bld POC 21.5 11.1-13.5 sec INR WHOLE BLOOD POC Reviewed date:02/19/2024 11:14:27 AM Interpretation:Subtherapeutic Performing Lab:[facility], [address] [place] [phone] Notes/Report: PT, INR - [facility]ag Clinic 1.8 0.9-1.1 METER #: [id number] INTERNATIONAL NORMALIZED RATIO (INR) REFERENCE RANGES Reference [...] OC Reviewed date:02/19/2024 11:14:27 AM Interpretation:Subtherapeutic Performing Lab:[address] [phone] Notes/Report: Prothrombin Time Whole Bld POC 21.1 11.1-13.5 sec Complete Blood Count Auto Di ff Reviewed date:02/20/2024 09:36:20 AM Interpretation:Abnormal Performing Lab:[facility] [address] [place] [phone] Notes/Report: White Blood Count 6.9 4.8-10.8 X10*3/uL [...] NRBC Abs Auto 0.000 0.0-0.012 X10*3/uL Comprehensive [place]. Panel Fa st Reviewed date:02/20/2024 09:36:02 AM Interpretation:Abnormal Performing Lab:[facility], [address] [place] [phone] Notes/Report: Sodium 141 135-145 mmol/L Potassium 3.9 3.3-5.1 mmol/L Chloride 104 96-108 mmol/L Carbon Dioxide 31 22-29 mmol/L Anion Gap 10 12-20 Blood Urea Nitrogen 19 9-16 mg/dL Creatinine 1.25 0.5-1.4 mg/dL Estimated Glomerular Filt Rate 55 NOTE: For -[place] individuals, multiply the result by 1.210. Chronic [...] Peptide Reviewed date:02/20/2024 09:36:02 AM Interpretation:Abnormal Performing Lab:[facility], [address] [place] [phone] Notes/Report: B Type Natriuretic Peptide 101 <100 pg/mL For those patients who are being treated with Natrecor (nesiritide, recombinant BNP), BNP testing should be performed at least two hours post treatment in order to ensure that only endogenous levels of BNP are detected. Lipid Panel Reviewed date:02/20/2024 09:36:02 AM Interpretation:Abnormal Performing Lab:[facility], [address] [place] [phone] Notes/Report: Triglycerides 88 <150 mg/dL Desirable Triglyceride: [...] Hormone Reviewed date:02/20/2024 09:36:02 AM Interpretation:Normal Performing Lab:[facility], [address] [place] [phone] Notes/Report: Thyroid Stimulating Hormone 2.86 0.32-4.0 uIU/ mL Note: A sustained TSH level above 2.5 uIU/mL may warrant further investigation. TSH 3rd Generation ([facility]) INR WHOLE BLOOD POC Reviewed date:02/26/2024 12:07:23 PM Interpretation:Subtherapeutic Performing Lab:[facility], [address] [place] [phone] Notes/Report: PT, INR - [facility] 2.4 0.9-1.1 METER #: [id number] INTERNATIONAL NORMALIZED RATIO (INR) REFERENCE RANGES Reference [...] OC Reviewed date:02/26/2024 12:07:23 PM Interpretation:Subtherapeutic Performing Lab:[facility], [address] [place] [phone] Notes/Report: Prothrombin Time Whole Bld POC 28.6 11.1-13.5 sec INR WHOLE BLOOD POC Reviewed date:03/04/2024 09:09:11 AM Interpretation:Therapeutic Performing Lab:[facility], [address] [place] [phone] Notes/Report: PT, INR - Anti [facility]ag Clinic 2.5 0.9-1.1 METER #: [id number] INTERNATIONAL NORMALIZED RATIO (INR) REFERENCE RANGES Reference [...] OC Reviewed date:03/04/2024 09:09:11 AM Interpretation:Therapeutic Performing Lab:[facility], [address] [place] [phone] Notes/Report: Prothrombin Time Whole Bld POC 29.8 11.1-13.5 sec INR WHOLE BLOOD POC Reviewed date:03/18/2024 11:44:06 AM Interpretation:Subtherapeutic Performing Lab:[facility], [address] [place] [phone] Notes/Report: PT, INR - [facility]ag Clinic 2.3 0.9-1.1 METER #: [id number] INTERNATIONAL NORMALIZED RATIO (INR) REFERENCE RANGES Reference [...] OC Reviewed date:03/18/2024 11:44:06 AM Interpretation:Subtherapeutic Performing Lab:[facility], [address] [place] [phone] Notes/Report: Prothrombin Time Whole Bld POC 27.6 11.1-13.5 sec INR WHOLE BLOOD POC Reviewed date:04/01/2024 11:18:04 AM Interpretation:Subtherapeutic Performing Lab:[facility], [address] [place] [phone] Notes/Report: PT, INR - Anti Coag Clinic 1.5 0.9-1.1 METER #: [id number] INTERNATIONAL NORMALIZED RATIO (INR) REFERENCE RANGES Reference [...] OC Reviewed date:04/01/2024 11:18:04 AM Interpretation:Subtherapeutic Performing Lab:[facility], [address] [place] [phone] Notes/Report: Prothrombin Time Whole Bld POC 17.5 11.1-13.5 sec INR WHOLE BLOOD POC Reviewed date:04/08/2024 12:30:51 PM Interpretation:Therapeutic Performing Lab:[facility], [address] [place] [phone] Notes/Report: PT, INR - [facility]ag [facility] 3.3 0.9-1.1 METER #: [id number] INTERNATIONAL NORMALIZED RATIO (INR) REFERENCE RANGES Reference [...] OC Reviewed date:04/08/2024 12:30:51 PM Interpretation:Therapeutic Performing Lab:[facility], [address] [place] [phone] Notes/Report: Prothrombin Time Whole Bld POC 40.1 11.1-13.5 sec INR WHOLE BLOOD POC Reviewed date:04/22/2024 09:03:12 AM Interpretation:Subtherapeutic Performing Lab:[facility], [address] [place] [phone] Notes/Report: PT, INR - Anti [facility]ag Clinic 1.9 0.9-1.1 METER #: [id number] INTERNATIONAL NORMALIZED RATIO (INR) REFERENCE RANGES Reference [...] OC Reviewed date:04/22/2024 09:03:12 AM Interpretation:Subtherapeutic Performing Lab:[facility], [address] [place] [phone] Notes/Report: Prothrombin Time Whole Bld POC 22.5 11.1-13.5 sec INR WHOLE BLOOD POC Reviewed date:05/06/2024 10:42:32 AM Interpretation:Subtherapeutic Performing Lab:[facility], [address] [place] [phone] Notes/Report: PT, INR - Anti Coag Clinic 2.2 0.9-1.1 METER #: [id number] INTERNATIONAL NORMALIZED RATIO (INR) REFERENCE RANGES Reference [...] OC Reviewed date:05/06/2024 10:42:32 AM Interpretation:Subtherapeutic Performing Lab:[facility], [address] [place] [phone] Notes/Report: Prothrombin Time Whole Bld POC 26.0 11.1-13.5 sec INR WHOLE BLOOD POC Reviewed date:05/20/2024 12:13:06 PM Interpretation:Subtherapeutic Performing Lab:[facility], [address] [place] [phone] Notes/Report: PT, INR - Anti [facility]ag Clinic 2.1 0.9-1.1 METER #: [id number] INTERNATIONAL NORMALIZED RATIO (INR) REFERENCE RANGES Reference [...] OC Reviewed date:05/20/2024 12:13:06 PM Interpretation:Subtherapeutic Performing Lab:[facility], [address] [place] [phone] Notes/Report: Prothrombin Time Whole Bld POC 25.3 11.1-13.5 sec INR WHOLE BLOOD POC Reviewed date:06/03/2024 11:35:39 AM Interpretation:Subtherapeutic Performing Lab:[facility], [address] [place] [phone] Notes/Report: PT, INR - Anti Coag Clinic 1.6 0.9-1.1 METER #: [id number] INTERNATIONAL NORMALIZED RATIO (INR) REFERENCE RANGES Reference [...] OC Reviewed date:06/03/2024 11:35:39 AM Interpretation:Subtherapeutic Performing Lab:[facility], [address] [place] [phone] Notes/Report: Prothrombin Time Whole Bld POC 18.8 11.1-13.5 sec INR WHOLE BLOOD POC Reviewed date:06/08/2024 10:17:40 AM Interpretation:Subtherapeutic Performing Lab:[facility], [address] [place] [phone] Notes/Report: PT, INR - Anti Coag Clinic 1.9 0.9-1.1 METER #: [id number] INTERNATIONAL NORMALIZED RATIO (INR) REFERENCE RANGES Reference [...] Prothrombin Time Whole Bld P OC Reviewed date:06/08/2024 10:17:40 AM Interpretation:Subtherapeutic Performing Lab:[facility], [address] [place] [phone] Notes/Report: Prothrombin Time Whole Bld POC 22.6 11.1-13.5 sec REASON FOR REFERRAL Reason Persistent left sacr al/pelvic pain s/p fall Diagnosis 1 Unspecified injury o f lower back, initial encounter (S39.92XA) Referral Organization [facility] FACP Referring Provider First Name Rc Referring Provider Last Name Avelino Referring Provider Speciality Internal M edicine Referred Provider [facility], Physical Therap y Referred Provider Specialty Physical [...] Larisa Macario 05/07/2024 04:25:08 PM EST > [facility] [place] Rheumatology is not accepting new patients.Avelino Robert M 05/07/2024 05:40:16 PM EST > refer [facility] to [facility], [facility] Esteves 05/11/2024 09:24:10 AM EST > Patient called and said he will not go to [place] and he will figure something else out. 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 confirmed 15380493 Problem Age-related cataract of both eyes, unspecified age-related cataract type (H25.9) Active confirmed 49906647 Problem Unspecified osteoarthritis, unspecified site (M19.90) Active confirmed Osteoarthritis (771436309) VITAL SIGNS Blood pressure diastolic 76 mm Hg 02/18/2024 Height 69 in 02/18/2024 Blood pressure systolic 152 mm Hg 02/18/2024 Weight 268 lbs 02/18/2024 BMI 39.57 kg/m2 02/18/2024 Encounters Encounter Location Date Provider Diagnosis Rc You DO, [address] [id number] 08/13/2023 Rc You Chronic systolic congestive heart failure I50.22 ; Coronary artery disease involving [place] coronary artery of [place] heart without angina pectoris I25.10 ; S/P AVR (aortic valve replacement) Z95.2 and Hyperlipidemia, unspecified hyperlipidemia type E78.5 Rc You DO, [address] [id number] 02/18/2024 Rc You Essential hypertensi on I10 ; S/P AVR (aortic valve replacement) Z95.2 ; Hyperlipidemia, unspecified hyperlipidemia type E78.5 ; Chronic systolic congestive heart failure I50.22 and Coronary artery disease involving [place] coronary artery of [place] heart without angina pectoris I25.10 Rc You DO, [address] [id number] 06/27/2023 Rc You DO, [address] [id number] 05/07/2024 Rc You ASSESSMENTS Encounter Date Diagnosis Assessment Notes Treatment Notes Treatment Clinical Notes 08/13/2023 Chronic systolic congestive heart failure (ICD-10 - I50.22) 08/13/2023 Coronary artery disease involving [place] coronary artery of [place] heart without angina pectoris (ICD-10 - I25.10) 02/18/2024 Essential hypertension (ICD-10 - I10) 02/18/2024 S/P AVR (aortic valv e replacement) (ICD-10 - Z95.2) 08/13/2023 S/P AVR (aortic valv e replacement) (ICD-10 - Z95.2) 02/18/2024 Hyperlipidemia, unspecified hyperlipidemia type (ICD-10 - E78.5) 08/13/2023 Hyperlipidemia, unspecified hyperlipidemia type (ICD-10 - E78.5) 02/18/2024 Chronic systolic congestive heart failure (ICD-10 - I50.22) 02/18/2024 Coronary artery disease involving [place] coronary artery of [place] heart without angina pectoris (ICD-10 - I25.10) PLAN OF TREATMENT No Information Insurance Providers Payer Name Payer Address Payer Phone Subscriber Number Group Number Insured Name Patient Relationship to Insured Coverage Start Date Coverage End Date MEDICARE [address] [place] [phone] [id number] Tad Villar Self - patient is the insured [employer] [address] [place] [address] [id number] Tad Villar Self - patient is the [...]
--- OUTSIDE RECORDS SUMMARY | 2024-06-15 08:08 | XMS_ITS | Patient Health Record ---
Author Organization [facility] Address [address] [place] [address] Care Team Providers Care Paramedic Name Role Phone Rc You MD Primary Care Provider Unavail able Yue Lobo Unavailable [phone] Scott Cline Unavailable [phone] Allergies Allergen (clinical drug ingredient) Drug/Non Drug Allergy documented on EMR Reaction Allergy Type Onset Date Status ramipril Altace headache Drug Allergy Active acetaminophen / oxycodone Percocet vomiting Drug Allergy Active tramadol Tramadol HCl neuropathy Drug Allergy Act javier atenolol Atenolol headache Drug Allergy Active Penicillin pain Drug Allergy Active Substance with 7-dolshwm-8-methylgl utaryl-coenzyme A reductase inhibitor mechanism of action [...] Problem Acquired hammer toe of right foot (8034690384034905) Other hammer toe(s) (acquired), right foot (M20.41) Active confirmed Problem Acquired hammer toe of left foot (7594227574140627) Other hammer toe(s) (acquired), left foot (M20.42) Active confirmed Problem Intermittent claudication of bilateral lower limbs co-occurrent and due to atherosclerosis (78170862530210677 ) Atherosclerosis of [place] arteries of extremities with intermittent claudication, 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) Active confirmed Problem Atherosclerosis of [place] artery of both lower extremities, with unspecified presence of clinical manifestation (I70.203) Active confirmed Q7(A), Q8(2B), Q9(1B,2 C) Vital Signs Blood pressure diastolic 79 mm Hg 05/03/2024 Height 5 ft 10 in in 05/03/2024 Blood pressure systolic 121 mm Hg 05/03/2024 Weight 260 lbs 05/03/2024 BMI 37.3 kg/m2 05/03/2024 Procedures Procedure Date Ordered Date Performed Result Body Sit e 93432-JPLFOOB NAIL, 6 OR MORE 05/03/2024 N/A 21844-YRFA SKIN LESIONS, OVER 4 05/03/2024 N/A Encounters Encounter Location Date Provider Diagnosis [facility] [place] [address] [place] [address] 07/07/2023 Scott Cline Tinea unguium B35.1 ; Pain in right toe(s) M79.674 ; Pain in left toe(s) M79.675 ; Skin disease L98.9 ; Atherosclerosis of [place] arteries of extremities with intermittent claudication, bilateral legs I70.213 ; Other hammer toe(s) (acquired), left foot M20.42 ; Other hammer toe(s) (acquired), right foot M20.41 and Xerosis cutis L85.[address] [address] 10/30/2023 Scott Cline Tinea unguium B35.1 ; Pain in right toe(s) M79.674 ; Pain in left toe(s) M79.675 ; Skin disease L98.9 ; Atherosclerosis of [place] arteries of extremities with intermittent claudication, bilateral legs I70.213 ; Other hammer toe(s) (acquired), left foot M20.42 ; Other hammer toe(s) (acquired), right foot M20.41 and Xerosis cutis L85.[address] [address] 02/02/2024 Scott Cline Tinea unguium B35.1 ; Pain in right toe(s) M79.674 ; Pain in left toe(s) M79.675 ; Skin disease L98.9 ; Atherosclerosis of [place] arteries of extremities with intermittent claudication, bilateral legs I70.213 ; Other hammer toe(s) (acquired), left foot M20.42 ; Other hammer toe(s) (acquired), right foot M20.41 and Xerosis cutis L85.[address] [address] 05/03/2024 Yue Lobo Atherosclerosis of [place] artery of both lower extremities, with unspecified [...] unguium (ICD-10 - B35.1) 05/03/2024 Atherosclerosis of [place] artery of both lower extremities, with unspecified [...] disease (ICD-10 - L98.9) 07/07/2023 Atherosclerosis of [place] arteries of extremities with intermittent claudication, bilateral legs (ICD-10 - I70.213) 10/30/2023 Atherosclerosis of [place] arteries of extremities with intermittent claudication, bilateral legs (ICD-10 - I70.213) 02/02/2024 Atherosclerosis of [place] arteries of extremities with intermittent claudication, bilateral [...] Treatment Pending Test Test Name Order Date 39070-FXWQHYK NAIL, 6 OR MORE 05/03/2024 31941-JNJH SKIN LESIONS, OVER 4 05/03/20 24 44451-YLKZ SKIN LESIONS, 2 TO 4 08/07/19 21 42295-UMCV SKIN LESIONS, 2 TO 4 12/28/19 21 12106-AAUZ SKIN LESIONS, 2 TO 4 05/02/20 21 49808-ZOCO SKIN LESIONS, 2 TO 4 09/06/19 22 Next Appt Details Provider Name:Yue Graham smiley, 09/20/2024 02:45:00 PM, [address] [facility], [place], [address], Insurance Providers Payer Name Payer Address Payer Phone Subscriber Number Group Number Insured Name Patient Relationship to Insured Coverage Start Date Coverage End Date Medicare National Govt Svcs Inc [address] [facility] [place] [address] [id number] Tad Villar Self - patient is the insured Medex Blue Shield [address] [place] [address] [phone] [id number] Tad Villar Self - patient is the insured Medical (General) History Medical History History ICD Code Hypertension Heart condition Hyperlipidemia Ulcerative colitis Aortic stenosis Coronary artery disease Atrioventricular block Microscopic Hematuria Pneumonia Congestive heart failure DVT, thrombophlebitis Surgical History Surgery Date(Month/Year) cardiac pacemeker bypass surgery Defibrillator valve surgery
--- OUTSIDE RECORDS SUMMARY | 2024-06-15 08:08 | XMS_ITS ---
Author Organization Rc Vaishnavi Avelino ZAPATA, FACP Address [address] [place], [place] [address] Care Team Providers Care Venipuncturist Name Role Phone Rc You Primary Care [...] Date Provider Diagnosis Rc Vaishnavi You DO, [address] [id number] 08/13/2023 Rc You Chronic systolic congestive heart failure I50.22 ; Coronary artery disease involving [place] coronary artery of [place] heart without angina pectoris I25.10 ; S/P AVR (aortic valve replacement) Z95.2 and Hyperlipidemia, unspecified hyperlipidemia type E78.5 ASSESSMENTS Encounter Date Diagnosis Assessment Notes Treatment Notes Treatment Clinical Notes 08/13/2023 Chronic systolic congestive heart failure (ICD-10 - I50.22) 08/13/2023 Coronary artery disease involving [place] coronary artery of [place] heart without angina pectoris (ICD-10 - I25.10) [...] General Examination GENERAL APPEARANCE: in no ac chilkat distress, well developed, well nourished HEAD: normocephalic, atrau matic HEART: no murmurs, regular rate and rhythm, S1, S2 normal with a mechanical S2 click LUNGS: clear to auscultatio n bilaterally ABDOMEN: normal, bowel sounds present, soft, nontender, nondistended SKIN: warm and dry EXTREMITIES: no edema PSYCH: alert, oriented, cog nitive function intact
--- OUTSIDE RECORDS SUMMARY | 2024-06-15 08:08 | XMS_ITS ---
Author Organization [facility] Address [address] [place] [address] Care Team Providers Care Reinforced Steel Placing Supervisor Name Role Phone Rc You MD Primary Care Provider Unavail able Yue Lobo Unavailable [phone] Scott Cline Unavailable [phone] Allergies Allergen (clinical drug ingredient) Drug/Non Drug Allergy documented on EMR Reaction Allergy Type Onset Date Status ramipril Altace headache Drug Allergy Active acetaminophen / oxycodone Percocet vomiting Drug Allergy Active tramadol Tramadol HCl neuropathy Drug Allergy Act javier atenolol Atenolol headache Drug Allergy Active Penicillin pain Drug Allergy Active Substance with 1-fjovfot-5-methylgl utaryl-coenzyme A reductase inhibitor mechanism of action [...] 10/30/2023 Encounters Encounter Location Date Provider Diagnosis [facility] [address] [address] 10/30/2023 Scott Cline Tinea unguium B35.1 ; Pain in right toe(s) M79.674 ; Pain in left toe(s) M79.675 ; Skin disease L98.9 ; Atherosclerosis of [place] arteries of extremities with intermittent claudication, bilateral [...] disease (ICD-10 - L98.9) 10/30/2023 Atherosclerosis of [place] arteries of extremities with intermittent claudication, bilateral legs (ICD-10 - I70.213) 10/30/2023 Other hammer toe(s) (acquired), left foot (ICD-10 - M20.42) 10/30/2023 Other hammer toe(s) (acquired), right foot (ICD-10 - M20.41) 10/30/2023 Xerosis cutis (ICD-10 - L85.3) Plan Of Treatment Next Appt Details Follow Up: 3 Months, Reason: Provider Name:Yue reis, 09/20/2024 02:45:00 PM, [address] [place], [address], Procedure Notes * Category Sub-Category Detail Notes [...] as necessary. Patient chooses, no pharmaceutical tx (70906) Keratoma Treatment Parring or Cutting o f Benign Hyperkeratotic Lesion(s) 77429 (2-4 Lesions) - The Benign hyperkeratotic lesions, as described above were pared, and/or cut utilizing a sterile #15 blade, tissue nippers, and/or dremel, Q8 Progress Notes * Tad VILLARDOB:1940 (83 yo M)Acc No.[id number]:10/30/2023 Progress Note Patient:?Tad Villar Provider:?Scott Cline DPM :1940???Age:83 Y???Sex:Male Sam e:10/30/2023 Address:[address] [place], [place] [address] Pcp:Rc You MD Subjective: * Chief Complaints: [...] Children, none. ?Exercise: yes, exercise/ cardiac rehab [facility]. ?Marital status: single. 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 * Medications:?TakingAspirin A dult [...] toe(s) - M79.675?4.?Skin disease - L98.9?5.?Atherosclerosis of [place] arteries of extremities with intermittent claudication, bilateral [...] as necessary. Patient chooses, no pharmaceutical tx (16784).?Keratoma Treatment:?Parring or Cutting of Benign Hyperkeratotic Lesion(s)?36414 (2-4 Lesions) - The Benign hyperkeratotic lesions, as described above were pared, and/or cut utilizing a sterile #15 blade, tissue nippers, and/or dremel, Q8.? * Procedure Codes:?80383 DEBRI DE NAIL, 6 OR MORE, Modifiers: XS 27827 TRIM SKIN LESIONS, 2 TO 4, Modifiers: Q8 * Follow Up:?3 Months * Images: * Sign off status: Completed true * Provider:?Scott Cline DPM Date:? 024 Generated for Gallo moralez/Alvin/eTransmitting on:?06/15/2024 08:07 AM EST History and Physical [...]
--- OUTSIDE RECORDS SUMMARY | 2024-06-15 08:08 | XMS_ITS ---
Author Organization Rc Vaishnavi Avelino ZAPATA, FACP Address [address] [place], [place] [address] Care Team Providers Care Process Development Engineer Name Role Phone Rc You Primary Care Provider [phone] ALLERGIES Allergen (clinical drug ingredient) Drug/Non Drug [...] Location Date Provider Diagnosis Rc You DO, [address] [id number] 02/18/2024 Rc You Essential hypertensi on I10 ; S/P AVR (aortic valve replacement) Z95.2 ; Hyperlipidemia, unspecified hyperlipidemia type E78.5 ; Chronic systolic congestive heart failure I50.22 and Coronary artery disease involving [place] coronary artery of [place] heart without angina pectoris I25.10 ASSESSMENTS Encounter Date Diagnosis Assessment Notes Treatment Notes Treatment Clinical Notes 02/18/2024 Essential hypertension (ICD-10 - I10) 02/18/2024 S/P AVR (aortic valv e replacement) (ICD-10 - Z95.2) 02/18/2024 Hyperlipidemia, unspecified hyperlipidemia type (ICD-10 - E78.5) 02/18/2024 Chronic systolic congestive heart failure (ICD-10 - I50.22) 02/18/2024 Coronary artery disease involving [place] coronary artery of [place] heart without angina pectoris (ICD-10 - [...]
--- OUTSIDE RECORDS SUMMARY | 2024-06-15 08:08 | XMS_ITS ---
Author Organization Rc You DO, [facility] Address [address] [place], [place] [address] Care Team Providers Care Center Manager Name Role Phone Rc You Primary Care Provider REASON FOR VISIT Message SOCIAL HISTORY Sex Assigned At : Social History Observation Description Sex Assigned At Male Encounters Encounter Location Date Provider Diagnosis Rc You DO, FACP [address] [place], [place] [id number] 05/07/2024 Rc You PLAN OF TREATMENT No Information
--- OUTSIDE RECORDS SUMMARY | 2024-06-15 08:09 | XMS_ITS | Patient Health Record ---
Author Organization [facility] Address [address] [place] [address] Care Team Providers Care Supervisor Inventory Merchandising Name Role Phone Avelino Jean-Paul ZAPATA Primary Care Provider Unavail able Jean-Paul Lemus Unavailable [phone] ALLERGIES Allergen (clinical drug ingredient) Drug/Non Drug [...] Notes Problem Hypertension (401.9) Active confirmed Hypertension (13278888) Problem Colon cancer screening (V76.51) Active confirmed Colon cancer screening (227055097) Problem Constipation, unspecified constipation type (K59.00) Active confirmed 82889592 Problem Change in bowel habits (R19.4) Active confirmed [id number] PLAN OF TREATMENT No Information Insurance Providers Payer Name Payer Address Payer Phone Subscriber Number Group Number Insured Name Patient Relationship to Insured Coverage Start Date Coverage End Date MEDICARE OF [place] [address] [place] [address] [phone] [id number] HANNAH HEIDI Self - patient is the insured MEDEX ATTN CLAIMS [address] [place] [address] [phone] [id number] HEIDI YOUNG Self - patient is the insured MEDICAL (GENERAL) HISTORY Medical History History ICD Code Hypertension Denies [place],DM,CVA,Lung disease,renal dise ase Colonoscopies in [address] 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 Dodson at [facility], pacemaker and defibrillator--sees Dr. Jade DVT in right leg in 2003 Surgical History Surgery Date(Month/Year) 4V CABG and aortic valve replacement in 2013 as above 2013 Defibrillator Pacemaker
[2024-06-15 08:25] LABS: Prothrombin Time Whole Bld POC 20.2 sec (11.1-13.5); ~PT, ~INR - Anti Coag Clinic 1.7 (0.9-1.1)
--- NOTE | 2024-06-15 08:37 | MHC.OFFVISCO ---
Intake Intake Visit Reasons: Anticoagulation Allergies Penicillins [PENICILLINS] Allergy (Severe, Verified 06/15/24 08:18) HIVES Nursing Note INR: 1.7?out of therapeutic range of 2-3 Medications and supplements reviewed has not restarted the atorvastatin yet but states he will today at HS. Patient status: Medications or supplements: continues on celebrex Diet: states appetite is less Denies any signs and symptoms of bleeding or clotting or unusual bruising Bleeding, bruising, clotting discussed Nutritional guidance given: to avoid greens, food list discussed. Pt will try to have some beets, grapes and strawberries and cranberry juice Dose: 2.5mg X 5 days and 5mg X 2 days F/U INR Date : 1 week?? Patient verbalizing understanding of instructions given. Anti-Coag Initial Assessment Social Hx Patient Tobacco Use Status: Former Tobacco user alcohol intake: current Alcohol intake frequency: a few times a month Coding Level of Care Code Est Patient Level 1 Diagnoses Current use of anticoagulant therapy Z79.01 Assessment & Plan Assessment & Plan (1) Current use of anticoagulant therapy: Code(s): Z79.01 - rn long term care (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
== END 2024-06-15 08:41 | disposition home or self-care (01) ==
LOC: HO.ACS 08:04
PROVIDERS: PCP Internal Medicine; Visit Provider Internal Medicine
DX: Z79.01 Long term (current) use of anticoagulants (principal)

== ENCOUNTER → 2024-06-15 08:04 | Outpatient (BNVA) | payer MEDICARE, SELFPAY | PROVIDERS: PCP Internal Medicine; Visit Provider Internal Medicine | DX: Z95.2 Presence of prosthetic heart valve (principal); Z79.01 Long term (current) use of anticoagulants; Z51.81 Encounter for therapeutic drug level monitoring | CPT/HCPCS: 85610; 99211 ==

== ENCOUNTER 2024-06-24 08:01 | Outpatient (AMB) | payer MEDICARE, SELFPAY ==
--- OUTSIDE RECORDS SUMMARY | 2024-06-24 08:04 | XMS_ITS ---
Author Organization [facility] Address [address] [place] [address] Care Team Providers Care Automotive Parts Counter Person Name Role Phone Rc You MD Primary Care Provider Unavail able Yue Lobo Unavailable [phone] Scott Cline Unavailable [phone] Allergies Allergen (clinical drug ingredient) Drug/Non Drug Allergy documented on EMR Reaction Allergy Type Onset Date Status ramipril Altace headache Drug Allergy Active acetaminophen / oxycodone Percocet vomiting Drug Allergy Active tramadol Tramadol HCl neuropathy Drug Allergy Act javier atenolol Atenolol headache Drug Allergy Active Penicillin pain Drug Allergy Active Substance with 2-gauvryw-2-methylgl utaryl-coenzyme A reductase inhibitor mechanism of action [...] 024 Encounters Encounter Location Date Provider Diagnosis [facility] [place] [address] [place] [address] 02/02/2024 Scott Cline Tinea unguium B35.1 ; Pain in right toe(s) M79.674 ; Pain in left toe(s) M79.675 ; Skin disease L98.9 ; Atherosclerosis of upper [place] arteries of extremities with intermittent claudication, bilateral [...] disease (ICD-10 - L98.9) 02/02/2024 Atherosclerosis of upper [place] arteries of extremities with intermittent claudication, bilateral legs (ICD-10 - I70.213) 02/02/2024 Other hammer toe(s) (acquired), left foot (ICD-10 - M20.42) 02/02/2024 Other hammer toe(s) (acquired), right foot (ICD-10 - M20.41) 02/02/2024 Xerosis cutis (ICD-10 - L85.3) Plan Of Treatment Next Appt Details Follow Up: 3 Months, Reason: Provider Name:Yue reis, 09/20/2024 02:45:00 PM, [address] [place], [address], Procedure Notes * Category Sub-Category Detail Notes [...] as necessary. Patient chooses, no pharmaceutical tx (67660) Keratoma Treatment Parring or Cutting o f Benign Hyperkeratotic Lesion(s) 83394 (2-4 Lesions) - The Benign hyperkeratotic lesions, as described above were pared, and/or cut utilizing a sterile #15 blade, tissue nippers, and/or dremel, Q8 Progress Notes * Tad VILLARDOB:1940 (83 yo M)Acc No.[id number]:02/02/2024 Progress Note Patient:?Tad Villar Provider:?Scott Cline DPM :1940???Age:83 Y???Sex:Male Sam e:02/02/2024 Address:[address] [place], [place] [address] Pcp:Rc You MD Subjective: * Chief Complaints: [...] Children, none. ?Exercise: yes, exercise/ cardiac rehab [facility]. ?Marital status: single. 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 * Medications:?TakingAspirin A dult Low [...] toe(s) - M79.675?4.?Skin disease - L98.9?5.?Atherosclerosis of upper [place] arteries of extremities with intermittent claudication, bilateral [...] as necessary. Patient chooses, no pharmaceutical tx (62701).?Keratoma Treatment:?Parring or Cutting of Benign Hyperkeratotic Lesion(s)?13406 (2-4 Lesions) - The Benign hyperkeratotic lesions, as described above were pared, and/or cut utilizing a sterile #15 blade, tissue nippers, and/or dremel, Q8.? * Procedure Codes:?21593 DEBRI DE NAIL, 6 OR MORE, Modifiers: XS 51720 TRIM SKIN LESIONS, 2 TO 4, Modifiers: Q8 * Follow Up:?3 Months * Images: * Sign off status: Completed true * Provider:?Scott Cline DPM Date:? 024 Generated for Gallo moralez/Alvin/eTelyssa on:?06/24/2024 08:04 AM EST History and Physical Notes * [...]
--- OUTSIDE RECORDS SUMMARY | 2024-06-24 08:04 | XMS_ITS | Patient Health Record ---
Author Organization [facility] Address [address] [place] [address] Care Team Providers Care Birth Certificate Clerk Name Role Phone Rc You MD Primary Care Provider Unavail able Yue Lobo Unavailable [phone] Scott Cline Unavailable [phone] Allergies Allergen (clinical drug ingredient) Drug/Non Drug Allergy documented on EMR Reaction Allergy Type Onset Date Status ramipril Altace headache Drug Allergy Active acetaminophen / oxycodone Percocet vomiting Drug Allergy Active tramadol Tramadol HCl neuropathy Drug Allergy Act javier atenolol Atenolol headache Drug Allergy Active Penicillin pain Drug Allergy Active Substance with 9-lvzgbdg-1-methylgl utaryl-coenzyme A reductase inhibitor mechanism of action [...] Problem Acquired hammer toe of right foot (4145770844874466) Other hammer toe(s) (acquired), right foot (M20.41) Active confirmed Problem Acquired hammer toe of left foot (1531586836728823) Other hammer toe(s) (acquired), left foot (M20.42) Active confirmed Problem Intermittent claudication of bilateral lower limbs co-occurrent and due to atherosclerosis (29133798943694149 ) Atherosclerosis of [place] arteries of extremities with intermittent claudication, 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) Active confirmed Problem Atherosclerosis of [place] artery of both lower extremities, with unspecified presence of clinical manifestation (I70.203) Active confirmed Q7(A), Q8(2B), Q9(1B,2 C) Vital Signs Blood pressure diastolic 79 mm Hg 05/03/2024 Height 5 ft 10 in in 05/03/2024 Blood pressure systolic 121 mm Hg 05/03/2024 Weight 260 lbs 05/03/2024 BMI 37.3 kg/m2 05/03/2024 Procedures Procedure Date Ordered Date Performed Result Body Sit e 87319-VTKTASD NAIL, 6 OR MORE 05/03/2024 N/A 97302-SBUP SKIN LESIONS, OVER 4 05/03/2024 N/A Encounters Encounter Location Date Provider Diagnosis [facility] [place] [address] [place] [address] 07/07/2023 Scott Cline Tinea unguium B35.1 ; Pain in right toe(s) M79.674 ; Pain in left toe(s) M79.675 ; Skin disease L98.9 ; Atherosclerosis of [place] arteries of extremities with intermittent claudication, bilateral legs I70.213 ; Other hammer toe(s) (acquired), left foot M20.42 ; Other hammer toe(s) (acquired), right foot M20.41 and Xerosis cutis L85.[address] [address] 10/30/2023 Scott Cline Tinea unguium B35.1 ; Pain in right toe(s) M79.674 ; Pain in left toe(s) M79.675 ; Skin disease L98.9 ; Atherosclerosis of [place] arteries of extremities with intermittent claudication, bilateral legs I70.213 ; Other hammer toe(s) (acquired), left foot M20.42 ; Other hammer toe(s) (acquired), right foot M20.41 and Xerosis cutis L85.[address] [address] 02/02/2024 Scott Cline Tinea unguium B35.1 ; Pain in right toe(s) M79.674 ; Pain in left toe(s) M79.675 ; Skin disease L98.9 ; Atherosclerosis of [place] arteries of extremities with intermittent claudication, bilateral legs I70.213 ; Other hammer toe(s) (acquired), left foot M20.42 ; Other hammer toe(s) (acquired), right foot M20.41 and Xerosis cutis L85.[address] [address] 05/03/2024 Yue Lobo Atherosclerosis of [place] artery [...] unguium (ICD-10 - B35.1) 05/03/2024 Atherosclerosis of [place] artery of both [...] disease (ICD-10 - L98.9) 07/07/2023 Atherosclerosis of [place] arteries of extremities with intermittent claudication, bilateral legs (ICD-10 - I70.213) 10/30/2023 Atherosclerosis of [place] arteries of extremities with intermittent claudication, bilateral legs (ICD-10 - I70.213) 02/02/2024 Atherosclerosis of [place] arteries of extremities with intermittent claudication, bilateral [...] Treatment Pending Test Test Name Order Date 50508-YOGABYE NAIL, 6 OR MORE 05/03/2024 27665-RAFJ SKIN LESIONS, OVER 4 05/03/20 24 04114-OSKL SKIN LESIONS, 2 TO 4 08/07/19 21 25206-TBAE SKIN LESIONS, 2 TO 4 12/28/19 21 42263-PXBJ SKIN LESIONS, 2 TO 4 05/02/20 21 42877-BGOS SKIN LESIONS, 2 TO 4 09/06/19 22 Next Appt Details Provider Name:Yue Graham smiley, 09/20/2024 02:45:00 PM, [address] [facility], [place], [address], Insurance Providers Payer Name Payer Address Payer Phone Subscriber Number Group Number Insured Name Patient Relationship to Insured Coverage Start Date Coverage End Date Medicare National Govt Svcs Inc [address] [place] [address] [id number] Tad Villar Self - patient is the insured Medex Blue Shield [address] [place] [address] [phone] [id number] Tad Villar Self - patient is the insured Medical (General) History Medical History History ICD Code Hypertension Heart condition Hyperlipidemia Ulcerative colitis Aortic stenosis Coronary artery disease Atrioventricular block Microscopic Hematuria Pneumonia Congestive heart failure DVT, thrombophlebitis Surgical History Surgery Date(Month/Year) cardiac pacemeker bypass surgery Defibrillator valve surgery
--- OUTSIDE RECORDS SUMMARY | 2024-06-24 08:04 | XMS_ITS ---
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 Name Role Phone Rc You MD Primary Care Provider Unavail able Yue Lobo Unavailable [phone] Allergies Allergen (clinical drug ingredient) Drug/Non Drug Allergy documented on EMR Reaction Allergy Type Onset Date Status ramipril Altace headache Drug Allergy Active acetaminophen / oxycodone Percocet vomiting Drug Allergy Active tramadol Tramadol HCl neuropathy Drug Allergy Act javier atenolol Atenolol headache Drug Allergy Active Penicillin pain Drug Allergy Active Substance with 7-pugswyy-9-methylgl utaryl-coenzyme A reductase inhibitor mechanism of action [...] W/U Status Risk Notes Problem Atherosclerosis of jamul artery of both lower extremities, with unspecified presence of clinical manifestation (I70.203) Active confirmed Q7(A), Q8(2B), Q9(1B,2C) Vital Signs Height 5 ft 10 in in 05/03/2024 Weight 260 lbs 05/03/2024 BMI 37.3 kg/m2 05/03/2024 Blood pressure systolic 121 mm Hg 05/03/20 24 Blood pressure diastolic 79 mm Hg 024 Procedures Procedure Date Ordered Date Performed Result Body Sit e 65379-UONBFIS NAIL, 6 OR MORE 05/03/2024 N/A 18845-VUMZ SKIN LESIONS, OVER 4 05/03/2024 N/A Encounters Encounter Location Date Provider Diagnosis [facility] [place] [address] [place] [address] 05/03/2024 Yue Lobo Atherosclerosis of jamul artery of both lower extremities, with unspecified presence of clinical manifestation I70.203 ; Tinea unguium B35.1 ; Pain in right toe(s) M79.674 and Pain in left toe(s) M79.675 Assessments Encounter Date Diagnosis (ICD Code) Assessment Notes Treatment Notes Treatment Clinical Notes Section Notes 05/03/2024 Atherosclerosis of jamul artery of both lower extremities, with unspecified presence of clinical manifestation (ICD-10 - I70.203) Q7(A), Q8(2B), Q9(1B,2C) 05/03/2024 Tinea unguium (ICD-10 - B35.1) 05/03/2024 Pain in right toe(s) (ICD-10 - M79.674) 05/03/2024 Pain in left toe(s) (ICD-10 - M79.675) Plan Of Treatment Pending Test Test Name Order Date 43674-PJPBVHC NAIL, 6 OR MORE 05/03/2024 82187-KCWE SKIN LESIONS, OVER 4 05/03/20 24 Next Appt Details Follow Up: prn, Reason: Provider Name:Yue Graham smiley, 09/20/2024 02:45:00 PM, [address] [place], [address], Procedure Notes * Category Sub-Category Detail Notes [...] use of a nail nipper and/or dremel-type jig grinder set up operator, to a more viable healthy nail plate or bed tissue 6-10. Silver nitrate used for any petechial bleeding as necessary. Definitive antifungal treatment options have been reviewed and discussed with the patient. The patient chooses, no pharmaceutical tx - 51176 Keratoma Treatment Parring or Cutting o f Benign Hyperkeratotic Lesion(s) (-57) More than 4 Lesions - The Benign hyperkeratotic lesions, as described in exam, were pared, and/or cut utilizing a sterile 15 blade, tissue nippers, and/or dremel - 16751, Q8 Progress Notes * Tad VILLARDOB:1940 (84 yo M)Acc No.[id number]:05/03/2024 Progress Note Patient:?Tad VILLAR Provider:?Yue Lobo DPM :1940???Age:84 Y???Sex:Male Sam e:05/03/2024 Address:[address] [place], [place] [id number] Pcp:Rc You MD Subjective: * Chief Complaints: [...] no, none. ?Exercise: yes, exercise/ cardiac rehab [facility] [place]. ?Marital status: single. 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 * Medications:?TakingAspirin A dult Low [...] 1.?Tinea unguium - B35.1 (Pr imary)???2.?Atherosclerosis of jamul artery of both lower extremities, with unspecified presence of clinical manifestation - I70.203???Notes :Q7(A), Q8(2B), Q9(1B,2C)???3.?Pain in right toe(s) - M79.674???4.?Pain in left toe(s) - M79.675??? Plan: * Treatment: 2.?Atherosclerosis of jamul artery of both lower extremities, with unspecified presence of clinical manifestation?Procedure: 44027-HXNE SKIN LESIONS, OVER 4 * Procedures:?Debride Nail [...] use of a nail nipper and/or dremel-type jig grinder set up operator, to a more viable healthy nail plate or bed tissue 6-10. Silver nitrate used for any petechial bleeding as necessary. Definitive antifungal treatment options have been reviewed and discussed with the patient. The patient chooses, no pharmaceutical tx - 50572.?Keratoma Treatment:?Parring or Cutting of Benign Hyperkeratotic Lesion(s)?(-57) More than 4 Lesions - The Benign hyperkeratotic lesions, as described in exam, were pared, and/or cut utilizing a sterile 15 blade, tissue nippers, and/or dremel - 05892, Q8.? * Procedure Codes:?87389 DEBRI DE NAIL, 6 OR MORE, Modifiers: XS 69551 TRIM SKIN LESIONS, OVER 4, Modifiers: XS , Q8 * Follow Up:?prn * Images: * Sign off status: Completed true * Provider:?Yue Lobo DPM Date:?07/03/2023 Generated for Gallo moralez/Alvin/Tyrese on:?06/24/2024 08:03 AM EST History and Physical Notes * [...]
--- OUTSIDE RECORDS SUMMARY | 2024-06-24 08:04 | XMS_ITS ---
Author Organization [facility] Address [address] [place] [address] Care Team Providers Care Tile Burner Name Role Phone Rc You MD Primary Care Provider Unavail able Yue Lobo Unavailable [phone] Scott Cline Unavailable [phone] Allergies Allergen (clinical drug ingredient) Drug/Non Drug Allergy documented on EMR Reaction Allergy Type Onset Date Status ramipril Altace headache Drug Allergy Active acetaminophen / oxycodone Percocet vomiting Drug Allergy Active tramadol Tramadol HCl neuropathy Drug Allergy Act javier atenolol Atenolol headache Drug Allergy Active Penicillin pain Drug Allergy Active Substance with 2-ttxrmrc-7-methylgl utaryl-coenzyme A reductase inhibitor mechanism of action [...] 10/30/2023 Encounters Encounter Location Date Provider Diagnosis [facility] [address] [address] 10/30/2023 Scott Cline Tinea unguium B35.1 ; Pain in right toe(s) M79.674 ; Pain in left toe(s) M79.675 ; Skin disease L98.9 ; Atherosclerosis of shawnee arteries of extremities with intermittent claudication, bilateral [...] disease (ICD-10 - L98.9) 10/30/2023 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 Patient chooses, no pharmaceutical tx (34308) Keratoma Treatment Parring or Cutting o f Benign Hyperkeratotic Lesion(s) 04080 (2-4 Lesions) - The Benign hyperkeratotic lesions, as described above were pared, and/or cut utilizing a sterile #15 blade, tissue nippers, and/or dremel, Q8 Progress Notes * Tad VILLARDOB:1940 (83 yo M)Acc No.[id number]:10/30/2023 Progress Note Patient:?Tad Villar Provider:?Scott Cline DPM :1940???Age:83 Y???Sex:Male Sam e:10/30/2023 Address:[address] [place], [place] [phone] Pcp:Rc You MD Subjective: * Chief Complaints: [...] none. ?Exercise: yes, exercise/ cardiac re[place] [facility] [place] ?Marital status: single. 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 * Medications:?TakingAspirin A dult Low [...] toe(s) - M79.675?4.?Skin disease - L98.9?5.?Atherosclerosis of shawnee arteries of extremities with intermittent claudication, bilateral [...] as necessary. Patient chooses, no pharmaceutical tx (19918).?Keratoma Treatment:?Parring or Cutting of Benign Hyperkeratotic Lesion(s)?42785 (2-4 Lesions) - The Benign hyperkeratotic lesions, as described above were pared, and/or cut utilizing a sterile #15 blade, tissue nippers, and/or dremel, Q8.? * Procedure Codes:?86031 DEBRI DE NAIL, 6 OR MORE, Modifiers: XS 25043 TRIM SKIN LESIONS, 2 TO 4, Modifiers: Q8 * Follow Up:?3 Months * Images: * Sign off status: Completed true * Provider:?Scott Cline DPM Date:? 024 Generated for Gallo moralez/Alvin/eTransmitting on:?06/24/2024 08:04 AM EST History and Physical [...]
--- OUTSIDE RECORDS SUMMARY | 2024-06-24 08:05 | XMS_ITS | Patient Health Record ---
Author Organization Rc Vaishnavi Avelino DO, FACP Address [address], [place] [id number] Care Team Providers Care Roller Man Name Role Phone Rc You Primary Care [...] POC Reviewed date:06/26/2023 12:31:11 PM Interpretation:Supratherapeutic Performing Lab:[facility], [address] [place] [phone] Notes/Report: PT, INR - [facility] Clinic 3.6 0.9-1.1 METER #: [id number] INTERNATIONAL NORMALIZED RATIO (INR) REFERENCE RANGES Reference [...] OC Reviewed date:06/26/2023 12:31:11 PM Interpretation:Supratherapeutic Performing Lab:[facility], [address] [place] [phone] Notes/Report: Prothrombin Time Whole Bld POC 43.0 11.1-13.5 sec Complete Blood Count Auto Di ff Reviewed date:07/11/2023 03:01:39 AM Interpretation:Abnormal Performing Lab:[facility], [address] [place] [phone] Notes/Report: White Blood Count 7.6 4.8-10.8 X10*3/uL [...] Panel Reviewed date:07/11/2023 03:01:39 AM Interpretation:Normal Performing Lab:[facility], [address] [place] [phone] Notes/Report: Sodium 142 135-145 mmol/L Potassium 3.9 [...] Peptide Reviewed date:07/11/2023 03:01:39 AM Interpretation:Abnormal Performing Lab:[address] [phone] Notes/Report: B Type Natriuretic Peptide 148 <100 pg/mL For those patients who are being treated with Natrecor (nesiritide, recombinant BNP), BNP testing should be performed at least two hours post treatment in order to ensure that only endogenous levels of BNP are detected. INR WHOLE BLOOD POC Reviewed date:07/11/2023 03:02:09 AM Interpretation:Therapeutic Performing Lab:[address] [phone] Notes/Report: PT, INR - Anti Coag Clinic 3.1 0.9-1.1 METER #: [id number] INTERNATIONAL NORMALIZED RATIO (INR) REFERENCE RANGES Reference [...] OC Reviewed date:07/11/2023 03:02:29 AM Interpretation:Therapeutic Performing Lab:[facility], [address] [place] [phone] Notes/Report: Prothrombin Time Whole Bld POC 36.9 11.1-13.5 sec INR WHOLE BLOOD POC Reviewed date:07/24/2023 12:26:18 PM Interpretation:Therapeutic Performing Lab:[facility], [address] [place] [phone] Notes/Report: PT, INR - Anti Coag Clinic 2.7 0.9-1.1 METER #: [id number] INTERNATIONAL NORMALIZED RATIO (INR) REFERENCE RANGES Reference [...] OC Reviewed date:07/24/2023 12:26:51 PM Interpretation:Therapeutic Performing Lab:[facility], [address] [place] [address] Notes/Report: Prothrombin Time Whole Bld POC 32.5 11.1-13.5 sec INR WHOLE BLOOD POC Reviewed date:08/07/2023 06:22:09 PM Interpretation:Therapeutic Performing Lab:[facility], [address] [place] [address] Notes/Report: PT, INR - Anti Coag Clinic 2.7 0.9-1.1 METER #: [id number] INTERNATIONAL NORMALIZED RATIO (INR) REFERENCE RANGES Reference [...] OC Reviewed date:08/07/2023 06:22:09 PM Interpretation:Therapeutic Performing Lab:[facility], [address] [place] [phone] Notes/Report: Prothrombin Time Whole Bld POC 31.8 11.1-13.5 sec INR WHOLE BLOOD POC Reviewed date:08/21/2023 10:14:55 AM Interpretation:Subtherapeutic Performing Lab:[facility], [address] [place] [address] Notes/Report: PT, INR - Anti Coag Clinic 1.7 0.9-1.1 METER #: [id number] INTERNATIONAL NORMALIZED RATIO (INR) REFERENCE RANGES Reference [...] OC Reviewed date:08/21/2023 10:14:38 AM Interpretation:Subtherapeutic Performing Lab:[facility], [address] [place] [phone] Notes/Report: Prothrombin Time Whole Bld POC 20.6 11.1-13.5 sec INR WHOLE BLOOD POC Reviewed date:09/04/2023 04:05:12 PM Interpretation:Subtherapeutic Performing Lab:[facility], [address] [place] [phone] Notes/Report: PT, INR - Anti Coag Clinic 2.4 0.9-1.1 METER #: [id number] INTERNATIONAL NORMALIZED RATIO (INR) REFERENCE RANGES Reference [...] OC Reviewed date:09/04/2023 04:05:12 PM Interpretation:Subtherapeutic Performing Lab:[facility], [address] [place] [phone] Notes/Report: Prothrombin Time Whole Bld POC 29.3 11.1-13.5 sec INR WHOLE BLOOD POC Reviewed date:09/18/2023 01:21:34 PM Interpretation:Subtherapeutic Performing Lab:[facility], [address] [place] [address] Notes/Report: PT, INR - [facility]ag Clinic 1.8 0.9-1.1 METER #: [id number] INTERNATIONAL NORMALIZED RATIO (INR) REFERENCE RANGES Reference [...] OC Reviewed date:09/18/2023 01:21:34 PM Interpretation:Subtherapeutic Performing Lab:[facility], [address] [place] [phone] Notes/Report: Prothrombin Time Whole Bld POC 21.9 11.1-13.5 sec INR WHOLE BLOOD POC Reviewed date:10/02/2023 12:32:11 PM Interpretation:Subtherapeutic Performing Lab:[facility], [address] [place] [address] Notes/Report: PT, INR - [facility]ag Clinic 2.2 0.9-1.1 METER #: [id number] INTERNATIONAL NORMALIZED RATIO (INR) REFERENCE RANGES Reference [...] OC Reviewed date:10/02/2023 12:32:11 PM Interpretation:Subtherapeutic Performing Lab:[facility], [address] [place] [phone] Notes/Report: Prothrombin Time Whole Bld POC 26.0 11.1-13.5 sec INR WHOLE BLOOD POC Reviewed date:10/16/2023 05:40:27 PM Interpretation:Subtherapeutic Performing Lab:[facility], [address] [place] [phone] Notes/Report: PT, INR - Anti Coag Clinic 1.6 0.9-1.1 METER #: [id number] INTERNATIONAL NORMALIZED RATIO (INR) REFERENCE RANGES Reference [...] OC Reviewed date:10/16/2023 05:40:27 PM Interpretation:Subtherapeutic Performing Lab:[facility], [address] [place] [phone] Notes/Report: Prothrombin Time Whole Bld POC 19.1 11.1-13.5 sec INR WHOLE BLOOD POC Reviewed date:10/30/2023 11:04:40 AM Interpretation:Subtherapeutic Performing Lab:[facility], [address] [place] [address] Notes/Report: PT, INR - Anti Coag Clinic 1.8 0.9-1.1 METER #: [id number] INTERNATIONAL NORMALIZED RATIO (INR) REFERENCE RANGES Reference [...] OC Reviewed date:10/30/2023 11:04:41 AM Interpretation:Subtherapeutic Performing Lab:[facility], [address] [place] [phone] Notes/Report: Prothrombin Time Whole Bld POC 21.1 11.1-13.5 sec INR WHOLE BLOOD POC Reviewed date:11/06/2023 09:49:33 AM Interpretation:Therapeutic Performing Lab:[facility], [address] [place] [phone] Notes/Report: PT, INR - Anti Coag Clinic 2.5 0.9-1.1 METER #: [id number] INTERNATIONAL NORMALIZED RATIO (INR) REFERENCE RANGES Reference [...] OC Reviewed date:11/06/2023 09:49:33 AM Interpretation:Therapeutic Performing Lab:[facility], [address] [place] [phone] Notes/Report: Prothrombin Time Whole Bld POC 30.0 11.1-13.5 sec INR WHOLE BLOOD POC Reviewed date:11/20/2023 05:07:58 PM Interpretation:Therapeutic Performing Lab:[facility], [address] [place] [address] Notes/Report: PT, INR - Anti Coag Clinic 3.4 0.9-1.1 METER #: [id number] INTERNATIONAL NORMALIZED RATIO (INR) REFERENCE RANGES Reference [...] OC Reviewed date:11/20/2023 05:07:58 PM Interpretation:Therapeutic Performing Lab:[facility], [address] [place] [phone] Notes/Report: Prothrombin Time Whole Bld POC 40.3 11.1-13.5 sec INR WHOLE BLOOD POC Reviewed date:12/04/2023 02:13:26 PM Interpretation:Subtherapeutic Performing Lab:[address] [phone] Notes/Report: PT, INR - Anti Coag Clinic 2.1 0.9-1.1 METER #: [id number] INTERNATIONAL NORMALIZED RATIO (INR) REFERENCE RANGES Reference [...] OC Reviewed date:12/04/2023 02:13:26 PM Interpretation:Subtherapeutic Performing Lab:[address] [phone] Notes/Report: Prothrombin Time Whole Bld POC 24.8 11.1-13.5 sec INR WHOLE BLOOD POC Reviewed date:12/23/2023 09:20:14 AM Interpretation:Subtherapeutic Performing Lab:[address] [phone] Notes/Report: PT, INR - Anti Coag Clinic 2.4 0.9-1.1 METER #: [id number] INTERNATIONAL NORMALIZED RATIO (INR) REFERENCE RANGES Reference [...] OC Reviewed date:12/23/2023 09:20:14 AM Interpretation:Subtherapeutic Performing Lab:[address] [phone] Notes/Report: Prothrombin Time Whole Bld POC 29.1 11.1-13.5 sec INR WHOLE BLOOD POC Reviewed date:01/08/2024 05:36:01 PM Interpretation:Subtherapeutic Performing Lab:[facility], [address] [place] [phone] Notes/Report: PT, INR - Anti Coag Clinic 2.0 0.9-1.1 METER #: [id number] INTERNATIONAL NORMALIZED RATIO (INR) REFERENCE RANGES Reference [...] OC Reviewed date:01/08/2024 05:36:52 PM Interpretation:Subtherapeutic Performing Lab:[address] [phone] Notes/Report: Prothrombin Time Whole Bld POC 24.2 11.1-13.5 sec INR WHOLE BLOOD POC Reviewed date:01/22/2024 04:15:39 PM Interpretation:Subtherapeutic Performing Lab:[facility], [address] [place] [phone] Notes/Report: PT, INR - Anti Coag Clinic 2.4 0.9-1.1 METER #: [id number] INTERNATIONAL NORMALIZED RATIO (INR) REFERENCE RANGES Reference [...] OC Reviewed date:01/22/2024 04:15:39 PM Interpretation:Subtherapeutic Performing Lab:[address] [phone] Notes/Report: Prothrombin Time Whole Bld POC 28.7 11.1-13.5 sec INR WHOLE BLOOD POC Reviewed date:02/06/2024 12:01:20 PM Interpretation:Subtherapeutic Performing Lab:[facility] [address] [place] [phone] Notes/Report: PT, INR - Anti Coag Clinic 1.8 0.9-1.1 METER #: [id number] INTERNATIONAL NORMALIZED RATIO (INR) REFERENCE RANGES Reference [...] OC Reviewed date:02/06/2024 12:01:20 PM Interpretation:Subtherapeutic Performing Lab:[address] [phone] Notes/Report: Prothrombin Time Whole Bld POC 21.5 11.1-13.5 sec INR WHOLE BLOOD POC Reviewed date:02/19/2024 11:14:27 AM Interpretation:Subtherapeutic Performing Lab:[facility], [address] [place] [phone] Notes/Report: PT, INR - Anti Coag Clinic 1.8 0.9-1.1 METER #: [id number] INTERNATIONAL NORMALIZED RATIO (INR) REFERENCE RANGES Reference [...] OC Reviewed date:02/19/2024 11:14:27 AM Interpretation:Subtherapeutic Performing Lab:[address] [phone] Notes/Report: Prothrombin Time Whole Bld POC 21.1 11.1-13.5 sec Complete Blood Count Auto Di ff Reviewed date:02/20/2024 09:36:20 AM Interpretation:Abnormal Performing Lab:[facility] [address] [place] [address] Notes/Report: White Blood Count 6.9 4.8-10.8 X10*3/uL [...] NRBC Abs Auto 0.000 0.0-0.012 X10*3/uL Comprehensive [place]. Panel Fa st Reviewed date:02/20/2024 09:36:02 AM Interpretation:Abnormal Performing Lab:[facility], [address] [place] [phone] Notes/Report: Sodium 141 135-145 mmol/L Potassium 3.9 [...] Peptide Reviewed date:02/20/2024 09:36:02 AM Interpretation:Abnormal Performing Lab:[facility], [address] [place] [address] Notes/Report: B Type Natriuretic Peptide 101 <100 pg/mL For those patients who are being treated with Natrecor (nesiritide, recombinant BNP), BNP testing should be performed at least two hours post treatment in order to ensure that only endogenous levels of BNP are detected. Lipid Panel Reviewed date:02/20/2024 09:36:02 AM Interpretation:Abnormal Performing Lab:[facility], [address] [place] [phone] Notes/Report: Triglycerides 88 <150 mg/dL Desirable Triglyceride: [...] Hormone Reviewed date:02/20/2024 09:36:02 AM Interpretation:Normal Performing Lab:[facility], [address] [place] [phone] Notes/Report: Thyroid Stimulating Hormone 2.86 0.32-4.0 uIU/ mL Note: A sustained TSH level above 2.5 uIU/mL may warrant further investigation. TSH 3rd Generation ([facility]) INR WHOLE BLOOD POC Reviewed date:02/26/2024 12:07:23 PM Interpretation:Subtherapeutic Performing Lab:[facility], [address] [place] [phone] Notes/Report: PT, INR - Anti Coag Clinic 2.4 0.9-1.1 METER #: [id number] INTERNATIONAL NORMALIZED RATIO (INR) REFERENCE RANGES Reference [...] OC Reviewed date:02/26/2024 12:07:23 PM Interpretation:Subtherapeutic Performing Lab:[facility], [address] [place] [phone] Notes/Report: Prothrombin Time Whole Bld POC 28.6 11.1-13.5 sec INR WHOLE BLOOD POC Reviewed date:03/04/2024 09:09:11 AM Interpretation:Therapeutic Performing Lab:[facility], [address] [place] [address] Notes/Report: PT, INR - Anti Coag Clinic 2.5 0.9-1.1 METER #: [id number] INTERNATIONAL NORMALIZED RATIO (INR) REFERENCE RANGES Reference [...] OC Reviewed date:03/04/2024 09:09:11 AM Interpretation:Therapeutic Performing Lab:[facility], [address] [place] [phone] Notes/Report: Prothrombin Time Whole Bld POC 29.8 11.1-13.5 sec INR WHOLE BLOOD POC Reviewed date:03/18/2024 11:44:06 AM Interpretation:Subtherapeutic Performing Lab:[facility], [address] [place] [address] Notes/Report: PT, INR - Anti Coag Clinic 2.3 0.9-1.1 METER #: [id number] INTERNATIONAL NORMALIZED RATIO (INR) REFERENCE RANGES Reference [...] OC Reviewed date:03/18/2024 11:44:06 AM Interpretation:Subtherapeutic Performing Lab:[facility], [address] [place] [phone] Notes/Report: Prothrombin Time Whole Bld POC 27.6 11.1-13.5 sec INR WHOLE BLOOD POC Reviewed date:04/01/2024 11:18:04 AM Interpretation:Subtherapeutic Performing Lab:[facility], [address] [place] [address] Notes/Report: PT, INR - Anti Coag Clinic 1.5 0.9-1.1 METER #: [id number] INTERNATIONAL NORMALIZED RATIO (INR) REFERENCE RANGES Reference [...] OC Reviewed date:04/01/2024 11:18:04 AM Interpretation:Subtherapeutic Performing Lab:[facility], [address] [place] [phone] Notes/Report: Prothrombin Time Whole Bld POC 17.5 11.1-13.5 sec INR WHOLE BLOOD POC Reviewed date:04/08/2024 12:30:51 PM Interpretation:Therapeutic Performing Lab:[facility], [address] [place] [phone] Notes/Report: PT, INR - Anti Coag Clinic 3.3 0.9-1.1 METER #: [id number] INTERNATIONAL NORMALIZED RATIO (INR) REFERENCE RANGES Reference [...] OC Reviewed date:04/08/2024 12:30:51 PM Interpretation:Therapeutic Performing Lab:[facility], [address] [place] [phone] Notes/Report: Prothrombin Time Whole Bld POC 40.1 11.1-13.5 sec INR WHOLE BLOOD POC Reviewed date:04/22/2024 09:03:12 AM Interpretation:Subtherapeutic Performing Lab:[facility], [address] [place] [phone] Notes/Report: PT, INR - Anti Coag Clinic 1.9 0.9-1.1 METER #: [id number] INTERNATIONAL NORMALIZED RATIO (INR) REFERENCE RANGES Reference [...] OC Reviewed date:04/22/2024 09:03:12 AM Interpretation:Subtherapeutic Performing Lab:[facility], [address] [place] [phone] Notes/Report: Prothrombin Time Whole Bld POC 22.5 11.1-13.5 sec INR WHOLE BLOOD POC Reviewed date:05/06/2024 10:42:32 AM Interpretation:Subtherapeutic Performing Lab:[facility], [address] [place] [phone] Notes/Report: PT, INR - Anti Coag Clinic 2.2 0.9-1.1 METER #: [id number] INTERNATIONAL NORMALIZED RATIO (INR) REFERENCE RANGES Reference [...] OC Reviewed date:05/06/2024 10:42:32 AM Interpretation:Subtherapeutic Performing Lab:[facility], [address] [place] [phone] Notes/Report: Prothrombin Time Whole Bld POC 26.0 11.1-13.5 sec INR WHOLE BLOOD POC Reviewed date:05/20/2024 12:13:06 PM Interpretation:Subtherapeutic Performing Lab:[facility], [address] [place] [phone] Notes/Report: PT, INR - Anti Coag Clinic 2.1 0.9-1.1 METER #: [id number] INTERNATIONAL NORMALIZED RATIO (INR) REFERENCE RANGES Reference [...] OC Reviewed date:05/20/2024 12:13:06 PM Interpretation:Subtherapeutic Performing Lab:[facility], [address] [place] [phone] Notes/Report: Prothrombin Time Whole Bld POC 25.3 11.1-13.5 sec INR WHOLE BLOOD POC Reviewed date:06/03/2024 11:35:39 AM Interpretation:Subtherapeutic Performing Lab:[facility], [address] [place] [phone] Notes/Report: PT, INR - Anti Coag Clinic 1.6 0.9-1.1 METER #: [id number] INTERNATIONAL NORMALIZED RATIO (INR) REFERENCE RANGES Reference [...] OC Reviewed date:06/03/2024 11:35:39 AM Interpretation:Subtherapeutic Performing Lab:[facility], [address] [place] [phone] Notes/Report: Prothrombin Time Whole Bld POC 18.8 11.1-13.5 sec INR WHOLE BLOOD POC Reviewed date:06/08/2024 10:17:40 AM Interpretation:Subtherapeutic Performing Lab:[facility], [address] [place] [phone] Notes/Report: PT, INR - Anti Coag Clinic 1.9 0.9-1.1 METER #: [id number] INTERNATIONAL NORMALIZED RATIO (INR) REFERENCE RANGES Reference [...] OC Reviewed date:06/08/2024 10:17:40 AM Interpretation:Subtherapeutic Performing Lab:[facility], [address] [place] [phone] Notes/Report: Prothrombin Time Whole Bld POC 22.6 11.1-13.5 sec INR WHOLE BLOOD POC Reviewed date:06/15/2024 10:40:13 AM Interpretation:Subtherapeutic Performing Lab:[facility], [address] [place] [phone] Notes/Report: PT, INR - Anti Coag Clinic 1.7 0.9-1.1 METER #: [id number] INTERNATIONAL NORMALIZED RATIO (INR) REFERENCE RANGES Reference [...] Prothrombin Time Whole Bld P OC Reviewed date:06/15/2024 10:40:13 AM Interpretation:Subtherapeutic Performing Lab:[facility], [address] [place] [phone] Notes/Report: Prothrombin Time Whole Bld POC 20.2 11.1-13.5 sec REASON FOR REFERRAL Reason Persistent left sacr al/pelvic pain s/p fall Diagnosis 1 Unspecified injury o f lower back, initial encounter (S39.92XA) Referral Organization Rc Wyatt FACP Referring Provider First Name Rc Referring Provider Last Name Avelino Referring Provider Speciality Internal M edicine Referred Provider C, Physical Therap y Referred Provider Specialty Physical [...] Larisa Macario 05/07/2024 04:25:08 PM EST > [facility] Rheumatology is not accepting new patients., Rc You 05/07/2024 05:40:16 PM EST > refer [facility] to [facility], [facility] Esteves 05/11/2024 09:24:10 AM EST > Patient called and said he will not go to [place] and he will figure something else out. [...] Notes Problem Essential hypertension (I10) Active confirmed 48586768 Problem S/P AVR (aortic valve replacement) (Z95.2) Active confirmed 1507185312504 Problem Hyperlipidemia, unspecified hyperlipidemia type (E78.5) Active confirmed 07212286 Problem Chronic systolic congestive heart failure (I50.22) Active confirmed 258965074 Problem Coronary artery disease involving [place] coronary artery of [place] heart without angina pectoris (I25.10) Active confirmed 59793626 Problem Age-related cataract of both eyes, unspecified age-related cataract type (H25.9) Active confirmed 23012529 Problem Unspecified osteoarthritis, unspecified site (M19.90) Active confirmed Osteoarthritis (015383904) VITAL SIGNS Blood pressure diastolic 76 mm Hg 02/18/2024 Height 69 in 02/18/2024 Blood pressure systolic 152 mm Hg 02/18/2024 Weight 268 lbs 02/18/2024 BMI 39.57 kg/m2 02/18/2024 Encounters Encounter Location Date Provider Diagnosis Rc You DO [facility] [address], [place] [id number] 08/13/2023 Rc You Chronic systolic congestive heart failure I50.22 ; Coronary artery disease involving [place] coronary artery of [place] heart without angina pectoris I25.10 ; S/P AVR (aortic valve replacement) Z95.2 and Hyperlipidemia, unspecified hyperlipidemia type E78.5 Rc You DO, [facility] [address], [place] [id number] 02/18/2024 Rc You Essential hypertensi on I10 ; S/P AVR (aortic valve replacement) Z95.2 ; Hyperlipidemia, unspecified hyperlipidemia type E78.5 ; Chronic systolic congestive heart failure I50.22 and Coronary artery disease involving [place] coronary artery of [place] heart without angina pectoris I25.10 Rc Vaishnavi Avelino ZAPATA, [facility] [address], [place] [id number] 06/27/2023 Rc Tatum Vaishnavi Avelino ZAPATA, [facility] [address], [place] [id number] 05/07/2024 Rc You ASSESSMENTS Encounter Date Diagnosis Assessment Notes Treatment Notes Treatment Clinical Notes 08/13/2023 Chronic systolic congestive heart failure (ICD-10 - I50.22) 08/13/2023 Coronary artery disease involving [place] coronary artery of [place] heart without angina pectoris (ICD-10 - I25.10) 02/18/2024 Essential hypertension (ICD-10 - I10) 02/18/2024 S/P AVR (aortic valv e replacement) (ICD-10 - Z95.2) 08/13/2023 S/P AVR (aortic valv e replacement) (ICD-10 - Z95.2) 02/18/2024 Hyperlipidemia, unspecified hyperlipidemia type (ICD-10 - E78.5) 08/13/2023 Hyperlipidemia, unspecified hyperlipidemia type (ICD-10 - E78.5) 02/18/2024 Chronic systolic congestive heart failure (ICD-10 - I50.22) 02/18/2024 Coronary artery disease involving [place] coronary artery of [place] heart without angina pectoris (ICD-10 - I25.10) PLAN OF TREATMENT No Information Insurance Providers Payer Name Payer Address Payer Phone Subscriber Number Group Number Insured Name Patient Relationship to Insured Coverage Start Date Coverage End Date MEDICARE [address] [place] [phone] [id number] Tad Villar Self - patient is the insured MEDEX [address] [place] [address] [id number] Tad Villar Self - patient is the [...]
--- OUTSIDE RECORDS SUMMARY | 2024-06-24 08:05 | XMS_ITS ---
Author Organization Rc You DO, [facility] Address [address], [place] [id number] Care Team Providers Care Hide Washer Name Role Phone Rc You Primary Care Provider REASON FOR VISIT Message SOCIAL HISTORY Sex Assigned At : Social History Observation Description Sex Assigned At Male Encounters Encounter Location Date Provider Diagnosis Rc You DO, FACP [address] [place], [place] [id number] 05/07/2024 Rc You PLAN OF TREATMENT No Information
--- OUTSIDE RECORDS SUMMARY | 2024-06-24 08:05 | XMS_ITS | Patient Health Record ---
Author Organization [facility] Address [address] [place] [address] Care Team Providers Care Truck Striker Name Role Phone Avelino Jean-Paul ZAPATA Primary Care Provider Unavail able Jean-Paul Lemus Unavailable [phone] ALLERGIES Allergen (clinical drug ingredient) Drug/Non Drug [...] Notes Problem Hypertension (401.9) Active confirmed Hypertension (87869372) Problem Colon cancer screening (V76.51) Active confirmed Colon cancer screening (461649318) Problem Constipation, unspecified constipation type (K59.00) Active confirmed 42513543 Problem Change in bowel habits (R19.4) Active confirmed 323556189 PLAN OF TREATMENT No Information Insurance Providers Payer Name Payer Address Payer Phone Subscriber Number Group Number Insured Name Patient Relationship to Insured Coverage Start Date Coverage End Date MEDICARE OF [place] [address] [place] [address] [id number] HANNAH HEIDI Self - patient is the insured MEDEX ATTN CLAIMS [address] [place] [phone] [id number] HEIDI YOUNG Self - patient is the insured MEDICAL (GENERAL) HISTORY Medical History History ICD Code Hypertension Denies [place],DM,CVA,Lung disease,renal dise ase Colonoscopies in [address] 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 Dodson at [facility], pacemaker and defibrillator--sees Dr. Jade DVT in right leg in 2003 Surgical History Surgery Date(Month/Year) 4V CABG and aortic valve replacement in 2013 as above 2013 Defibrillator Pacemaker
--- OUTSIDE RECORDS SUMMARY | 2024-06-24 08:05 | XMS_ITS ---
Author Organization Rc You DO, FACP Address [address] [place], [place] [id number] Care Team Providers Care News Agent Name Role Phone Rc You Primary Care Provider [phone] ALLERGIES Allergen (clinical drug ingredient) Drug/Non Drug [...] Date Provider Diagnosis Rc Vaishnavi You DO, [address] [id number] 08/13/2023 Rc You Chronic systolic congestive heart failure I50.22 ; Coronary artery disease involving [place] coronary artery of [place] heart without angina pectoris I25.10 ; S/P AVR (aortic valve replacement) Z95.2 and Hyperlipidemia, unspecified hyperlipidemia type E78.5 ASSESSMENTS Encounter Date Diagnosis Assessment Notes Treatment Notes Treatment Clinical Notes 08/13/2023 Chronic systolic congestive heart failure (ICD-10 - I50.22) 08/13/2023 Coronary artery disease involving [place] coronary artery of [place]ib[place] heart without angina pectoris (ICD-10 - I25.10) [...] General Examination GENERAL APPEARANCE: in no ac [place] distress, well developed, well nourished HEAD: normocephalic, atrau matic HEART: no murmurs, regular rate and rhythm, S1, S2 normal with a mechanical S2 click LUNGS: clear to auscultatio n bilaterally ABDOMEN: normal, bowel sounds present, soft, nontender, nondistended SKIN: warm and dry EXTREMITIES: no edema PSYCH: alert, oriented, cog nitive function intact
--- OUTSIDE RECORDS SUMMARY | 2024-06-24 08:05 | XMS_ITS ---
Author Organization Rc Vaishnavi Avelino ZAPATA, FACP Address [address] [place], [place] [id number] Care Team Providers Care Dry Cleaning Counter Clerk Name Role Phone Rc You Primary Care [...] Location Date Provider Diagnosis Rc You DO, [address] [id number] 02/18/2024 Rc You Essential hypertensi on I10 ; S/P AVR (aortic valve replacement) Z95.2 ; Hyperlipidemia, unspecified hyperlipidemia type E78.5 ; Chronic systolic congestive heart failure I50.22 and Coronary artery disease involving solomon coronary artery of solomon heart without angina pectoris I25.10 ASSESSMENTS Encounter Date Diagnosis Assessment Notes Treatment Notes Treatment Clinical Notes 02/18/2024 Essential hypertension (ICD-10 - I10) 02/18/2024 S/P AVR (aortic valv e replacement) (ICD-10 - Z95.2) 02/18/2024 Hyperlipidemia, unspecified hyperlipidemia type (ICD-10 - E78.5) 02/18/2024 Chronic systolic congestive heart failure (ICD-10 - I50.22) 02/18/2024 Coronary artery disease involving solomon coronary artery of solomon heart without angina pectoris (ICD-10 - I25.10) [...] General Examination GENERAL APPEARANCE: in no ac [place] distress, well developed, well nourished HEAD: normocephalic, atrau matic HEART: no murmurs, regular rate and rhythm, S1, S2 normal with a mechanical S2 click LUNGS: clear to auscultatio n bilaterally ABDOMEN: normal, bowel sounds present, soft, nontender, nondistended SKIN: warm and dry EXTREMITIES: no edema PSYCH: alert, oriented, cog nitive function intact
[2024-06-24 08:18] LABS: Prothrombin Time Whole Bld POC 30.2 sec (11.1-13.5); ~PT, ~INR - Anti Coag Clinic 2.5 (0.9-1.1)
--- NOTE | 2024-06-24 08:18 | MHC.OFFVISCO ---
Intake Intake Visit Reasons: Anticoagulation Allergies Penicillins [PENICILLINS] Allergy (Severe, Verified 06/24/24 08:02) HIVES Medication List - Last Reconciled 06/24/24 by Janet Deng RN atorvastatin 40 mg PO DAILY celecoxib (Celebrex) 100 mg PO BID furosemide 80mg in the AM and 40mg in the PM orally daily; 30 days lisinopril 40 mg PO DAILY metoprolol succinate ER 50 mg PO DAILY multivit,calc,bpi-PJ-H2-lycop 240 mcg-30 mcg- 300 mcg (One-A-Day Men's Complete) 1 tab PO DAILY warfarin 5 mg See Protocol PO DAILY Nursing Note INR: 2.5 in therapeutic range of 2-3 Medications and supplements reviewed Pt states he just restarted Atorvastatin today and that he stopped celebrex No changes in health, diet, or supplements, Denies any signs and symptoms of bleeding or bruising or clotting. Bleeding, bruising, clotting discussed Nutritional guidance given Dose: 2.5mg X 5 days and 5mg X 2 days F/U INR: 2 weels Patient verbalizes understanding of instructions given Anti-Coag Initial Assessment Social Hx Patient Tobacco Use Status: Former Tobacco user alcohol intake: current Alcohol intake frequency: a few times a month Coding Level of Care Code Est Patient Level 1 Diagnoses Current use of anticoagulant therapy Z79.01 Results AMB INR Fingerstick AMB INR Fingerstick 2.5 Last Edit by Janet Deng RN on 06/24/24 08:18 interface delay Assessment & Plan Assessment & Plan (1) Current use of anticoagulant therapy: Code(s): Z79.01 - snf (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 Medications: On Hold celecoxib (Celebrex) Hold Comment: pt stopped on his own 100 mg PO BID 100 caps 3RF
== END 2024-06-24 08:22 | disposition home or self-care (01) ==
LOC: HO.ACS 08:01
PROVIDERS: PCP Internal Medicine; Visit Provider Internal Medicine
DX: Z79.01 Long term (current) use of anticoagulants (principal)

== ENCOUNTER → 2024-06-24 08:01 | Outpatient (BNVA) | payer MEDICARE, SELFPAY | PROVIDERS: PCP Internal Medicine; Visit Provider Internal Medicine | DX: Z95.2 Presence of prosthetic heart valve (principal); Z79.01 Long term (current) use of anticoagulants; Z51.81 Encounter for therapeutic drug level monitoring | CPT/HCPCS: 85610; 99211 ==

== ENCOUNTER 2024-06-29 12:44 | Outpatient (AMB) | payer MEDICARE, SELFPAY ==
[2024-06-29 12:55] VITALS: BP 130/72; PULSE 80; BMI 36.3
--- NOTE | 2024-06-29 12:55 | MHC.OFFVIS ---
Vital Signs 06/29/24 12:55 Height 5 ft 10 in Weight 253 lb 1.451 oz BMI 36.3 BP 130/72 Blood Pressure Location Lt brachial Position Sitting Pulse 80 Pulse Source Pulse Oximeter Intake Visit Reasons: f/up- per KM Intake Note: f/up pt have been having numbing sensation on the right hand that goes down all the way to his fingers at nigh. pt have been of med for 8days. Maintenance Job Titles Required: No Accompanied by: Self / Same As Patient Allergies Penicillins [PENICILLINS] Allergy (Severe, Verified 06/29/24 13:23) HIVES Medication List - Last Reconciled 06/29/24 by James Burns NP atorvastatin 40 mg PO DAILY celecoxib (Celebrex) 100 mg PO BID furosemide 80mg in the AM and 40mg in the PM orally daily; 30 days lisinopril 40 mg PO DAILY metoprolol succinate ER 50 mg PO DAILY multivit,calc,uor-CM-Z7-lycop 240 mcg-30 mcg- 300 mcg (One-A-Day Men's Complete) 1 tab PO DAILY warfarin 5 mg See Protocol PO DAILY HPI Comments Details: This is an 84-year-old male patient presenting for follow-up regarding numbness and tingling in his right hand. 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 This patient was recently seen by Dr. Jade for a follow-up appointment where he had primarily complained about arthritis pain, for which he was prescribed celecoxib twice daily. He subsequently began experiencing numbness and tingling in his fingertips, was recommended to stop taking the medication. Today, the patient reports significant improvement in the numbness and tingling over the past 2 days. He also stopped taking atorvastatin, believing it might have contributed to his symptoms. Otherwise, the patient denies any exertional chest pain, shortness of breath, palpitations, dizziness, orthopnea, PND, leg edema, presyncope or syncope. [facility]LY [facility] Medical History Fatigue Current use of anticoagulant therapy Surgical History History of cardiac cath History of aortic valve replacement Family History Father No problems noted. Mother No problems noted. Social History Alcohol intake: current Alcohol intake frequency: a few times a month Alcohol type: beer Patient Tobacco Use Status: Former Tobacco user Years Smoked: 23 +/- Review of Systems Const Denies chills, Denies fatigue, Denies fever(s), Denies frequent falls, Denies weakness, Denies weight gain and Denies weight loss ENT Denies dizziness Card Denies chest pain, Denies leg edema, Denies lightheadedness, Denies palpitations, Denies dyspnea and Denies dyspnea on exertion Resp Denies cough, Denies dyspnea and Denies dyspnea on exertion GI Denies hematochezia Musc Denies abnormal gait, Denies muscle weakness, Denies numbness, Denies radiating pain into limb and Denies tingling Neuro Denies abnormal gait, Denies dizziness, Denies frequent falls, Denies numbness, Denies tingling and Denies weakness Endo Denies fatigue and Denies palpitations Physical Exam Vital Signs: Last Vital Signs Pulse 80 06/29/24 12:55 BP 130/72 06/29/24 12:55 BMI result Body Mass Index 36.3 Assessment & Plan Assessment & Plan (1) Numbness of right hand: Code(s): R20.0 - Anesthesia of skin Plan: Patient was taking the Celebrex for arthritis in his hand, but due to developing paresthesia in the right fingertips, was asked to hold it. Since the patient has some improvement, discontinued Celebrex for now. Advised patient to try high-dose Tylenol for arthritis and applying topical cream such as Voltaren mnxm-zca-wmfaody in his joint pains. Recommended following up with PCP in case of worsening arthritis pain. (2) Essential hypertension: Code(s): I10 - Essential (primary) hypertension Category: Medical Plan: Blood pressure today is well-controlled. Continue lisinopril and metoprolol. (3) CAD (coronary artery disease): Code(s): I25.10 - Atherosclerotic heart disease of enterprise coronary artery without angina pectoris Category: Medical Plan: Patient had stopped taking atorvastatin for the last couple of days because he thought it was related to his numbness in the hands. Last LDL 74. Explained the importance of statin therapy. He will start taking it again. Continue atorvastatin 40 mg daily. This note was generated using voice recognition software. While every effort has been made to ensure accuracy and proper touch up painter, there may be occasional errors that could affect the content or meaning of the described symptoms. Medications: Discontinued celecoxib (Celebrex) Discontinued Reason: Doctor's Order 100 mg PO BID 100 caps 3RF Coding Level of Care Code Est Pt Level 3 (69813) Diagnoses Numbness of right hand R20.0 Essential hypertension I10 CAD (coronary artery disease) I25.10 Time Spent (min) 24 Comment Time spent in reviewing the chart, test results, assessment, counseling and documentation.
--- OUTSIDE RECORDS SUMMARY | 2024-06-29 14:50 | XMS_ITS ---
Author Organization [facility] Address [address] [place] [address] Care Team Providers Care Pot Sander Name Role Phone Rc You MD Primary Care Provider Unavail able Yue Lobo Unavailable [phone] Scott Cline Unavailable [phone] Allergies Allergen (clinical drug ingredient) Drug/Non Drug Allergy documented on EMR Reaction Allergy Type Onset Date Status ramipril Altace headache Drug Allergy Active acetaminophen / oxycodone Percocet vomiting Drug Allergy Active tramadol Tramadol HCl neuropathy Drug Allergy Act javier atenolol Atenolol headache Drug Allergy Active Penicillin pain Drug Allergy Active Substance with 0-tgmuxjj-1-methylgl utaryl-coenzyme A reductase inhibitor mechanism of action [...] 024 Encounters Encounter Location Date Provider Diagnosis [facility] [place] [address] [place] [address] 02/02/2024 Scott Cline Tinea unguium B35.1 ; Pain in right toe(s) M79.674 ; Pain in left toe(s) M79.675 ; Skin disease L98.9 ; Atherosclerosis of [place] arteries of extremities with intermittent claudication, bilateral [...] disease (ICD-10 - L98.9) 02/02/2024 Atherosclerosis of [place] arteries of extremities with intermittent claudication, bilateral legs (ICD-10 - I70.213) 02/02/2024 Other hammer toe(s) (acquired), left foot (ICD-10 - M20.42) 02/02/2024 Other hammer toe(s) (acquired), right foot (ICD-10 - M20.41) 02/02/2024 Xerosis cutis (ICD-10 - L85.3) Plan Of Treatment Next Appt Details Follow Up: 3 Months, Reason: Provider Name:Yue reis, 09/20/2024 02:45:00 PM, [address] [place], [address], Procedure Notes * Category Sub-Category Detail Notes [...] as necessary. Patient chooses, no pharmaceutical tx (86274) Keratoma Treatment Parring or Cutting o f Benign Hyperkeratotic Lesion(s) 80931 (2-4 Lesions) - The Benign hyperkeratotic lesions, as described above were pared, and/or cut utilizing a sterile #15 blade, tissue nippers, and/or dremel, Q8 Progress Notes * Tad VILLARDOB:1940 (83 yo M)Acc No.[id number]:02/02/2024 Progress Note Patient:?Tad Villar Provider:?Scott Cline DPM :1940???Age:83 Y???Sex:Male Sam e:02/02/2024 Address:[address] [place], [place] [phone] Pcp:Rc You MD Subjective: * Chief Complaints: [...] Children, none. ?Exercise: yes, exercise/ [place] [facility] [place] ?Marital status: single. 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 * Medications:?TakingAspirin A dult Low [...] toe(s) - M79.675?4.?Skin disease - L98.9?5.?Atherosclerosis of [place] arteries of extremities with intermittent claudication, bilateral [...] as necessary. Patient chooses, no pharmaceutical tx (00487).?Keratoma Treatment:?Parring or Cutting of Benign Hyperkeratotic Lesion(s)?79169 (2-4 Lesions) - The Benign hyperkeratotic lesions, as described above were pared, and/or cut utilizing a sterile #15 blade, tissue nippers, and/or dremel, Q8.? * Procedure Codes:?38329 DEBRI DE NAIL, 6 OR MORE, Modifiers: XS 47326 TRIM SKIN LESIONS, 2 TO 4, Modifiers: Q8 * Follow Up:?3 Months * Images: * Sign off status: Completed true * Provider:?Scott Cline DPM Date:? 024 Generated for Gallo moralez/Alvin/eTelyssa on:?06/29/2024 02:50 PM EST History and Physical Notes * [...]
--- OUTSIDE RECORDS SUMMARY | 2024-06-29 14:51 | XMS_ITS ---
Author Organization [facility] Address [address] [place] [address] Care Team Providers Care Audio Experience Expert Name Role Phone Rc You MD Primary Care Provider Unavail able Yue Lobo Unavailable [phone] Scott Cline Unavailable [phone] Allergies Allergen (clinical drug ingredient) Drug/Non Drug Allergy documented on EMR Reaction Allergy Type Onset Date Status ramipril Altace headache Drug Allergy Active acetaminophen / oxycodone Percocet vomiting Drug Allergy Active tramadol Tramadol HCl neuropathy Drug Allergy Act javier atenolol Atenolol headache Drug Allergy Active Penicillin pain Drug Allergy Active Substance with 9-nzgwefg-5-methylgl utaryl-coenzyme A reductase inhibitor mechanism of action [...] 10/30/2023 Encounters Encounter Location Date Provider Diagnosis [facility] [address] [address] 10/30/2023 Scott Cline Tinea unguium B35.1 ; Pain in right toe(s) M79.674 ; Pain in left toe(s) M79.675 ; Skin disease L98.9 ; Atherosclerosis of [place] arteries of extremities with intermittent claudication, bilateral [...] disease (ICD-10 - L98.9) 10/30/2023 Atherosclerosis of [place] arteries of extremities with intermittent claudication, bilateral legs (ICD-10 - I70.213) 10/30/2023 Other hammer toe(s) (acquired), left foot (ICD-10 - M20.42) 10/30/2023 Other hammer toe(s) (acquired), right foot (ICD-10 - M20.41) 10/30/2023 Xerosis cutis (ICD-10 - L85.3) Plan Of Treatment Next Appt Details Follow Up: 3 Months, Reason: Provider Name:Yue reis, 09/20/2024 02:45:00 PM, [address] [place], [address], Procedure Notes * Category Sub-Category Detail Notes [...] as necessary. Patient chooses, no pharmaceutical tx (15114) Keratoma Treatment Parring or Cutting o f Benign Hyperkeratotic Lesion(s) 28540 (2-4 Lesions) - The Benign hyperkeratotic lesions, as described above were pared, and/or cut utilizing a sterile #15 blade, tissue nippers, and/or dremel, Q8 Progress Notes * Tad VILLARDOB:1940 (83 yo M)Acc No.[id number]:10/30/2023 Progress Note Patient:?Tad Villar Provider:?Scott Cline DPM :1940???Age:83 Y???Sex:Male Sam e:10/30/2023 Address:[address] [place], [place] [phone] Pcp:Rc You MD Subjective: * Chief Complaints: [...] Children, none. ?Exercise: yes, exercise/ cardiac rehab [facility] [place]. ?Marital status: single. 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 * Medications:?TakingAspirin A dult Low [...] toe(s) - M79.675?4.?Skin disease - L98.9?5.?Atherosclerosis of [place] arteries of extremities with intermittent claudication, bilateral [...] as necessary. Patient chooses, no pharmaceutical tx (78824).?Keratoma Treatment:?Parring or Cutting of Benign Hyperkeratotic Lesion(s)?77666 (2-4 Lesions) - The Benign hyperkeratotic lesions, as described above were pared, and/or cut utilizing a sterile #15 blade, tissue nippers, and/or dremel, Q8.? * Procedure Codes:?98643 DEBRI DE NAIL, 6 OR MORE, Modifiers: XS 72644 TRIM SKIN LESIONS, 2 TO 4, Modifiers: Q8 * Follow Up:?3 Months * Images: * Sign off status: Completed true * Provider:?Scott Cline DPM Date:? 024 Generated for Gallo moralez/Alvin/eTransmitting on:?06/29/2024 02:50 PM EST History and Physical [...]
--- OUTSIDE RECORDS SUMMARY | 2024-06-29 14:51 | XMS_ITS | Patient Health Record ---
Author Organization [facility] Address [address] [place] [address] Care Team Providers Care Automatic Pilot Mechanic Name Role Phone Rc You MD Primary Care Provider Unavail able Yue Lobo Unavailable [phone] Scott Cline Unavailable [phone] Allergies Allergen (clinical drug ingredient) Drug/Non Drug Allergy documented on EMR Reaction Allergy Type Onset Date Status ramipril Altace headache Drug Allergy Active acetaminophen / oxycodone Percocet vomiting Drug Allergy Active tramadol Tramadol HCl neuropathy Drug Allergy Act javier atenolol Atenolol headache Drug Allergy Active Penicillin pain Drug Allergy Active Substance with 8-mtewjgb-2-methylgl utaryl-coenzyme A reductase inhibitor mechanism of action [...] Problem Acquired hammer toe of right foot (3590447492919802) Other hammer toe(s) (acquired), right foot (M20.41) Active confirmed Problem Acquired hammer toe of left foot (7593419042901142) Other hammer toe(s) (acquired), left foot (M20.42) Active confirmed Problem Intermittent claudication of bilateral lower limbs co-occurrent and due to atherosclerosis (28303654692142324 ) Atherosclerosis of [place] arteries of extremities with intermittent claudication, 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) Active confirmed Problem Atherosclerosis of [place] artery of both lower extremities, with unspecified presence of clinical manifestation (I70.203) Active confirmed Q7(A), Q8(2B), Q9(1B,2 C) Vital Signs Blood pressure diastolic 79 mm Hg 05/03/2024 Height 5 ft 10 in in 05/03/2024 Blood pressure systolic 121 mm Hg 05/03/2024 Weight 260 lbs 05/03/2024 BMI 37.3 kg/m2 05/03/2024 Procedures Procedure Date Ordered Date Performed Result Body Sit e 47873-BIUUIMW NAIL, 6 OR MORE 05/03/2024 N/A 01667-ULDU SKIN LESIONS, OVER 4 05/03/2024 N/A Encounters Encounter Location Date Provider Diagnosis [facility] [place] [address] [place] [address] 07/07/2023 Scott Cline Tinea unguium B35.1 ; Pain in right toe(s) M79.674 ; Pain in left toe(s) M79.675 ; Skin disease L98.9 ; Atherosclerosis of [place] arteries of extremities with intermittent claudication, bilateral legs I70.213 ; Other hammer toe(s) (acquired), left foot M20.42 ; Other hammer toe(s) (acquired), right foot M20.41 and Xerosis cutis L85.[address] [address] 10/30/2023 Scott Cline Tinea unguium B35.1 ; Pain in right toe(s) M79.674 ; Pain in left toe(s) M79.675 ; Skin disease L98.9 ; Atherosclerosis of [place] arteries of extremities with intermittent claudication, bilateral legs I70.213 ; Other hammer toe(s) (acquired), left foot M20.42 ; Other hammer toe(s) (acquired), right foot M20.41 and Xerosis cutis L85.[address] [address] 02/02/2024 Scott Cline Tinea unguium B35.1 ; Pain in right toe(s) M79.674 ; Pain in left toe(s) M79.675 ; Skin disease L98.9 ; Atherosclerosis of [place] arteries of extremities with intermittent claudication, bilateral legs I70.213 ; Other hammer toe(s) (acquired), left foot M20.42 ; Other hammer toe(s) (acquired), right foot M20.41 and Xerosis cutis L85.[address] [address] 05/03/2024 Yue Lobo Atherosclerosis of [place] artery of both lower extremities, with unspecified [...] unguium (ICD-10 - B35.1) 05/03/2024 Atherosclerosis of [place] artery of both lower extremities, with unspecified [...] disease (ICD-10 - L98.9) 07/07/2023 Atherosclerosis of [place] arteries of extremities with intermittent claudication, bilateral legs (ICD-10 - I70.213) 10/30/2023 Atherosclerosis of [place] arteries of extremities with intermittent claudication, bilateral legs (ICD-10 - I70.213) 02/02/2024 Atherosclerosis of [place] arteries of extremities with intermittent claudication, bilateral [...] Treatment Pending Test Test Name Order Date 23739-HJVLAUA NAIL, 6 OR MORE 05/03/2024 52093-GLQW SKIN LESIONS, OVER 4 05/03/20 24 26329-VOZM SKIN LESIONS, 2 TO 4 08/07/19 21 17464-TUUZ SKIN LESIONS, 2 TO 4 12/28/19 21 97113-XAZJ SKIN LESIONS, 2 TO 4 05/02/20 21 82453-BPYZ SKIN LESIONS, 2 TO 4 09/06/19 22 Next Appt Details Provider Name:Yue Graham smiley, 09/20/2024 02:45:00 PM, [address] [facility], [place], [address], Insurance Providers Payer Name Payer Address Payer Phone Subscriber Number Group Number Insured Name Patient Relationship to Insured Coverage Start Date Coverage End Date Medicare National Govt Sv[employer] Inc [address] [place] [address] [phone] [id number] Tad Villar Self - patient is the insured [employer] [address] [place] [address] [id number] Tad Villar Self - patient is the insured Medical (General) History Medical History History ICD Code Hypertension Heart condition Hyperlipidemia Ulcerative colitis Aortic stenosis Coronary artery disease Atrioventricular block Microscopic Hematuria Pneumonia Congestive heart failure DVT, thrombophlebitis Surgical History Surgery Date(Month/Year) cardiac pacemeker bypass surgery Defibrillator valve surgery
--- OUTSIDE RECORDS SUMMARY | 2024-06-29 14:51 | XMS_ITS ---
Author Organization Rc Viashnavi Avelino ZAPATA, FACP Address [address] [place], [place] [id number] Care Team Providers Care Semiconductor Equipment Technician [...] Location Date Provider Diagnosis Rc You DO, [address] [id number] 02/18/2024 Rc You Essential hypertensi on I10 ; S/P AVR (aortic valve replacement) Z95.2 ; Hyperlipidemia, unspecified hyperlipidemia type E78.5 ; Chronic systolic congestive heart failure I50.22 and Coronary artery disease involving [place] coronary artery of [place] heart without angina pectoris I25.10 ASSESSMENTS Encounter Date Diagnosis Assessment Notes Treatment Notes Treatment Clinical Notes 02/18/2024 Essential hypertension (ICD-10 - I10) 02/18/2024 S/P AVR (aortic valv e replacement) (ICD-10 - Z95.2) 02/18/2024 Hyperlipidemia, unspecified hyperlipidemia type (ICD-10 - E78.5) 02/18/2024 Chronic systolic congestive heart failure (ICD-10 - I50.22) 02/18/2024 Coronary artery disease involving [place] coronary artery of [place] heart without angina pectoris (ICD-10 - I25.10) [...]
--- OUTSIDE RECORDS SUMMARY | 2024-06-29 14:51 | XMS_ITS ---
Author Organization Rc You DO, FACP Address [address] [place], [place] [phone] Care Team Providers Care Feed Mixer Name Role Phone Rc You Primary Care Provider [phone] ALLERGIES Allergen (clinical drug ingredient) Drug/Non Drug [...] Date Provider Diagnosis Rc Vaishnavi You DO, [address] [id number] 08/13/2023 Rc You Chronic systolic congestive heart failure I50.22 ; Coronary artery disease involving [place] coronary artery of [place] heart without angina pectoris I25.10 ; S/P AVR (aortic valve replacement) Z95.2 and Hyperlipidemia, unspecified hyperlipidemia type E78.5 ASSESSMENTS Encounter Date Diagnosis Assessment Notes Treatment Notes Treatment Clinical Notes 08/13/2023 Chronic systolic congestive heart failure (ICD-10 - I50.22) 08/13/2023 Coronary artery disease involving [place] coronary artery of [place] heart without angina pectoris (ICD-10 - I25.10) [...]
--- OUTSIDE RECORDS SUMMARY | 2024-06-29 14:51 | XMS_ITS ---
Author Organization Rc You DO, [facility] Address [address] [place], [place] [phone] Care Team Providers Care Director Of Diversity And Inclusion Name Role Phone Rc You Primary Care Provider REASON FOR VISIT Message SOCIAL HISTORY Sex Assigned At : Social History Observation Description Sex Assigned At Male Encounters Encounter Location Date Provider Diagnosis Rc You DO, FACP [address] [place], [place] [phone] 05/07/2024 Rc You PLAN OF TREATMENT No Information
--- OUTSIDE RECORDS SUMMARY | 2024-06-29 14:52 | XMS_ITS | Patient Health Record ---
Author Organization [facility]ins Avelino DO, FAC Address [address], [place] [id number] Care Team Providers Care Match Up Person Name Role Phone [facility] [...] Active RESULTS Component Value Reference Range Notes Complete Blood Count Auto Di ff Reviewed date:07/11/2023 03:01:39 AM Interpretation:Abnormal Performing Lab:[facility], [address] [place] [phone] Notes/Report: White Blood Count 7.6 4.8-10.8 X10*3/uL [...] Panel Reviewed date:07/11/2023 03:01:39 AM Interpretation:Normal Performing Lab:[address] [address] Notes/Report: Sodium 142 135-145 mmol/L Potassium 3.9 3.3-5.1 mmol/L Chloride 104 96-108 mmol/L Carbon Dioxide 28 22-29 mmol/L Anion Gap 14 12-20 Blood Urea Nitrogen 16 9-16 mg/dL Creatinine 1.09 0.5-1.4 mg/dL Estimated Glomerular Filt Rate > 60 NOTE: For -[place]ian individuals, multiply the result by 1.210. Chronic Kidney Disease: Estimated GFR < 60 mL/min/1.73m2 Severe Kidney Disease: Estimated GFR < 15 mL/min/1.73m2 Glucose Random 105 60-115 mg/dL Calcium 9.4 8.4-10.2 mg/dL B Type Natriuretic Peptide Reviewed date:07/11/2023 03:01:39 AM Interpretation:Abnormal Performing Lab:[address] [address] Notes/Report: B Type Natriuretic Peptide 148 <100 pg/mL For those patients who are being treated with Natrecor (nesiritide, recombinant BNP), BNP testing should be performed at least two hours post treatment in order to ensure that only endogenous levels of BNP are detected. INR WHOLE BLOOD POC Reviewed date:07/11/2023 03:02:09 AM Interpretation:Therapeutic Performing Lab:[facility], [address] [place] [phone] Notes/Report: PT, INR - Anti Coag Clinic 3.1 0.9-1.1 METER #: [id number] INTERNATIONAL NORMALIZED RATIO (INR) REFERENCE RANGES Reference [...] OC Reviewed date:07/11/2023 03:02:29 AM Interpretation:Therapeutic Performing Lab:[facility], [address] [place] [phone] Notes/Report: Prothrombin Time Whole Bld POC 36.9 11.1-13.5 sec INR WHOLE BLOOD POC Reviewed date:07/24/2023 12:26:18 PM Interpretation:Therapeutic Performing Lab:[facility], [address] [place] [phone] Notes/Report: PT, INR - Anti Coag Clinic 2.7 0.9-1.1 METER #: [id number] INTERNATIONAL NORMALIZED RATIO (INR) REFERENCE RANGES Reference [...] OC Reviewed date:07/24/2023 12:26:51 PM Interpretation:Therapeutic Performing Lab:[facility], [address] [place] [phone] Notes/Report: Prothrombin Time Whole Bld POC 32.5 11.1-13.5 sec INR WHOLE BLOOD POC Reviewed date:08/07/2023 06:22:09 PM Interpretation:Therapeutic Performing Lab:[facility], [address] [place] [id number] Notes/Report: PT, INR - Anti Coag Clinic 2.7 0.9-1.1 METER #: [id number] INTERNATIONAL NORMALIZED RATIO (INR) REFERENCE RANGES Reference [...] OC Reviewed date:08/07/2023 06:22:09 PM Interpretation:Therapeutic Performing Lab:[facility], [address] [place] [phone] Notes/Report: Prothrombin Time Whole Bld POC 31.8 11.1-13.5 sec INR WHOLE BLOOD POC Reviewed date:08/21/2023 10:14:55 AM Interpretation:Subtherapeutic Performing Lab:[facility], [address] [place] [phone] Notes/Report: PT, INR - Anti Coag Clinic 1.7 0.9-1.1 METER #: [id number] INTERNATIONAL NORMALIZED RATIO (INR) REFERENCE RANGES Reference [...] OC Reviewed date:08/21/2023 10:14:38 AM Interpretation:Subtherapeutic Performing Lab:[facility], [address] [place] [phone] Notes/Report: Prothrombin Time Whole Bld POC 20.6 11.1-13.5 sec INR WHOLE BLOOD POC Reviewed date:09/04/2023 04:05:12 PM Interpretation:Subtherapeutic Performing Lab:[facility], [address] [place] [phone] Notes/Report: PT, INR - Anti Coag Clinic 2.4 0.9-1.1 METER #: [id number] INTERNATIONAL NORMALIZED RATIO (INR) REFERENCE RANGES Reference [...] OC Reviewed date:09/04/2023 04:05:12 PM Interpretation:Subtherapeutic Performing Lab:[facility], [address] [place] [phone] Notes/Report: Prothrombin Time Whole Bld POC 29.3 11.1-13.5 sec INR WHOLE BLOOD POC Reviewed date:09/18/2023 01:21:34 PM Interpretation:Subtherapeutic Performing Lab:[facility], [address] [place] [phone] Notes/Report: PT, INR - Anti Coag Clinic 1.8 0.9-1.1 METER #: [id number] INTERNATIONAL NORMALIZED RATIO (INR) REFERENCE RANGES Reference [...] OC Reviewed date:09/18/2023 01:21:34 PM Interpretation:Subtherapeutic Performing Lab:[facility], [address] [place] [phone] Notes/Report: Prothrombin Time Whole Bld POC 21.9 11.1-13.5 sec INR WHOLE BLOOD POC Reviewed date:10/02/2023 12:32:11 PM Interpretation:Subtherapeutic Performing Lab:[facility], [address] [place] [phone] Notes/Report: PT, INR - Anti Coag Clinic 2.2 0.9-1.1 METER #: [id number] INTERNATIONAL NORMALIZED RATIO (INR) REFERENCE RANGES Reference [...] OC Reviewed date:10/02/2023 12:32:11 PM Interpretation:Subtherapeutic Performing Lab:[facility], [address] [place] [phone] Notes/Report: Prothrombin Time Whole Bld POC 26.0 11.1-13.5 sec INR WHOLE BLOOD POC Reviewed date:10/16/2023 05:40:27 PM Interpretation:Subtherapeutic Performing Lab:[facility], [address] [place] [phone] Notes/Report: PT, INR - [facility]ag Clinic 1.6 0.9-1.1 METER #: [id number] INTERNATIONAL NORMALIZED RATIO (INR) REFERENCE RANGES Reference [...] OC Reviewed date:10/16/2023 05:40:27 PM Interpretation:Subtherapeutic Performing Lab:[facility], [address] [place] [phone] Notes/Report: Prothrombin Time Whole Bld POC 19.1 11.1-13.5 sec INR WHOLE BLOOD POC Reviewed date:10/30/2023 11:04:40 AM Interpretation:Subtherapeutic Performing Lab:[facility], [address] [place] [phone] Notes/Report: PT, INR - Anti Coag Clinic 1.8 0.9-1.1 METER #: [id number] INTERNATIONAL NORMALIZED RATIO (INR) REFERENCE RANGES Reference [...] OC Reviewed date:10/30/2023 11:04:41 AM Interpretation:Subtherapeutic Performing Lab:[facility], [address] [place] [phone] Notes/Report: Prothrombin Time Whole Bld POC 21.1 11.1-13.5 sec INR WHOLE BLOOD POC Reviewed date:11/06/2023 09:49:33 AM Interpretation:Therapeutic Performing Lab:[facility], [address] [place] [phone] Notes/Report: PT, INR - Anti Coag Clinic 2.5 0.9-1.1 METER #: [id number] INTERNATIONAL NORMALIZED RATIO (INR) REFERENCE RANGES Reference [...] OC Reviewed date:11/06/2023 09:49:33 AM Interpretation:Therapeutic Performing Lab:[facility], [address] [place] [phone] Notes/Report: Prothrombin Time Whole Bld POC 30.0 11.1-13.5 sec INR WHOLE BLOOD POC Reviewed date:11/20/2023 05:07:58 PM Interpretation:Therapeutic Performing Lab:[facility], [address] [place] [phone] Notes/Report: PT, INR - Anti Coag Clinic 3.4 0.9-1.1 METER #: [id number] INTERNATIONAL NORMALIZED RATIO (INR) REFERENCE RANGES Reference [...] OC Reviewed date:11/20/2023 05:07:58 PM Interpretation:Therapeutic Performing Lab:[address] [address] Notes/Report: Prothrombin Time Whole Bld POC 40.3 11.1-13.5 sec INR WHOLE BLOOD POC Reviewed date:12/04/2023 02:13:26 PM Interpretation:Subtherapeutic Performing Lab:[address] [address] Notes/Report: PT, INR - Anti Coag Clinic 2.1 0.9-1.1 METER #: [id number] INTERNATIONAL NORMALIZED RATIO (INR) REFERENCE RANGES Reference [...] OC Reviewed date:12/04/2023 02:13:26 PM Interpretation:Subtherapeutic Performing Lab:[address] [phone] Notes/Report: Prothrombin Time Whole Bld POC 24.8 11.1-13.5 sec INR WHOLE BLOOD POC Reviewed date:12/23/2023 09:20:14 AM Interpretation:Subtherapeutic Performing Lab:[address] [address] Notes/Report: PT, INR - Anti Coag Clinic 2.4 0.9-1.1 METER #: [id number] INTERNATIONAL NORMALIZED RATIO (INR) REFERENCE RANGES Reference [...] OC Reviewed date:12/23/2023 09:20:14 AM Interpretation:Subtherapeutic Performing Lab:[address] [address] Notes/Report: Prothrombin Time Whole Bld POC 29.1 11.1-13.5 sec INR WHOLE BLOOD POC Reviewed date:01/08/2024 05:36:01 PM Interpretation:Subtherapeutic Performing Lab:[address] [address] Notes/Report: PT, INR - Anti Coag Clinic 2.0 0.9-1.1 METER #: [id number] INTERNATIONAL NORMALIZED RATIO (INR) REFERENCE RANGES Reference [...] OC Reviewed date:01/08/2024 05:36:52 PM Interpretation:Subtherapeutic Performing Lab:[address] [phone] Notes/Report: Prothrombin Time Whole Bld POC 24.2 11.1-13.5 sec INR WHOLE BLOOD POC Reviewed date:01/22/2024 04:15:39 PM Interpretation:Subtherapeutic Performing Lab:[facility], [address] [place] [phone] Notes/Report: PT, INR - Anti Coag Clinic 2.4 0.9-1.1 METER #: [id number] INTERNATIONAL NORMALIZED RATIO (INR) REFERENCE RANGES Reference [...] OC Reviewed date:01/22/2024 04:15:39 PM Interpretation:Subtherapeutic Performing Lab:[address] [address] Notes/Report: Prothrombin Time Whole Bld POC 28.7 11.1-13.5 sec INR WHOLE BLOOD POC Reviewed date:02/06/2024 12:01:20 PM Interpretation:Subtherapeutic Performing Lab:[facility], [address] [place] [phone] Notes/Report: PT, INR - Anti Coag Clinic 1.8 0.9-1.1 METER #: [id number] INTERNATIONAL NORMALIZED RATIO (INR) REFERENCE RANGES Reference [...] OC Reviewed date:02/06/2024 12:01:20 PM Interpretation:Subtherapeutic Performing Lab:[facility], [address] [place] [phone] Notes/Report: Prothrombin Time Whole Bld POC 21.5 11.1-13.5 sec INR WHOLE BLOOD POC Reviewed date:02/19/2024 11:14:27 AM Interpretation:Subtherapeutic Performing Lab:[address] [address] Notes/Report: PT, INR - Anti Coag Clinic 1.8 0.9-1.1 METER #: [id number] INTERNATIONAL NORMALIZED RATIO (INR) REFERENCE RANGES Reference [...] OC Reviewed date:02/19/2024 11:14:27 AM Interpretation:Subtherapeutic Performing Lab:[facility], [address] [place] [phone] Notes/Report: Prothrombin Time Whole Bld POC 21.1 11.1-13.5 sec Complete Blood Count Auto Di ff Reviewed date:02/20/2024 09:36:20 AM Interpretation:Abnormal Performing Lab:[facility], [address] [place] [phone] Notes/Report: White Blood Count 6.9 4.8-10.8 X10*3/uL [...] NRBC Abs Auto 0.000 0.0-0.012 X10*3/uL Comprehensive [place]. Panel Fa st Reviewed date:02/20/2024 09:36:02 AM Interpretation:Abnormal Performing Lab:[facility], [address] [place] [phone] Notes/Report: Sodium 141 135-145 mmol/L Potassium 3.9 3.3-5.1 mmol/L Chloride 104 96-108 mmol/L Carbon Dioxide 31 22-29 mmol/L Anion Gap 10 12-20 Blood Urea Nitrogen 19 9-16 mg/dL Creatinine 1.25 0.5-1.4 mg/dL Estimated Glomerular Filt Rate 55 NOTE: For -Jordanian individuals, multiply the result by 1.210. Chronic [...] Peptide Reviewed date:02/20/2024 09:36:02 AM Interpretation:Abnormal Performing Lab:[facility], [address] [place] [phone] Notes/Report: B Type Natriuretic Peptide 101 <100 pg/mL For those patients who are being treated with Natrecor (nesiritide, recombinant BNP), BNP testing should be performed at least two hours post treatment in order to ensure that only endogenous levels of BNP are detected. Lipid Panel Reviewed date:02/20/2024 09:36:02 AM Interpretation:Abnormal Performing Lab:[facility], [address] [place] [phone] Notes/Report: Triglycerides 88 <150 mg/dL Desirable Triglyceride: [...] Hormone Reviewed date:02/20/2024 09:36:02 AM Interpretation:Normal Performing Lab:[facility], [address] [place] [phone] Notes/Report: Thyroid Stimulating Hormone 2.86 0.32-4.0 uIU/ mL Note: A sustained TSH level above 2.5 uIU/mL may warrant further investigation. TSH 3rd Generation ([facility] [employer]) INR WHOLE BLOOD POC Reviewed date:02/26/2024 12:07:23 PM Interpretation:Subtherapeutic Performing Lab:[facility], [address] [place] [phone] Notes/Report: PT, INR - Anti Coag Clinic 2.4 0.9-1.1 METER #: [id number] INTERNATIONAL NORMALIZED RATIO (INR) REFERENCE RANGES Reference [...] OC Reviewed date:02/26/2024 12:07:23 PM Interpretation:Subtherapeutic Performing Lab:[facility], [address] [place] [phone] Notes/Report: Prothrombin Time Whole Bld POC 28.6 11.1-13.5 sec INR WHOLE BLOOD POC Reviewed date:03/04/2024 09:09:11 AM Interpretation:Therapeutic Performing Lab:[facility], [address] [place] [phone] Notes/Report: PT, INR - Anti Coag Clinic 2.5 0.9-1.1 METER #: [id number] INTERNATIONAL NORMALIZED RATIO (INR) REFERENCE RANGES Reference [...] OC Reviewed date:03/04/2024 09:09:11 AM Interpretation:Therapeutic Performing Lab:[facility], [address] [place] [phone] Notes/Report: Prothrombin Time Whole Bld POC 29.8 11.1-13.5 sec INR WHOLE BLOOD POC Reviewed date:03/18/2024 11:44:06 AM Interpretation:Subtherapeutic Performing Lab:[facility], [address] [place] [phone] Notes/Report: PT, INR - Anti Coag Clinic 2.3 0.9-1.1 METER #: [id number] INTERNATIONAL NORMALIZED RATIO (INR) REFERENCE RANGES Reference [...] OC Reviewed date:03/18/2024 11:44:06 AM Interpretation:Subtherapeutic Performing Lab:[facility], [address] [place] [phone] Notes/Report: Prothrombin Time Whole Bld POC 27.6 11.1-13.5 sec INR WHOLE BLOOD POC Reviewed date:04/01/2024 11:18:04 AM Interpretation:Subtherapeutic Performing Lab:[facility], [address] [place] [phone] Notes/Report: PT, INR - Anti Coag Clinic 1.5 0.9-1.1 METER #: [id number] INTERNATIONAL NORMALIZED RATIO (INR) REFERENCE RANGES Reference [...] OC Reviewed date:04/01/2024 11:18:04 AM Interpretation:Subtherapeutic Performing Lab:[facility], [address] [place] [phone] Notes/Report: Prothrombin Time Whole Bld POC 17.5 11.1-13.5 sec INR WHOLE BLOOD POC Reviewed date:04/08/2024 12:30:51 PM Interpretation:Therapeutic Performing Lab:[facility], [address] [place] [phone] Notes/Report: PT, INR - Anti Coag Clinic 3.3 0.9-1.1 METER #: [id number] INTERNATIONAL NORMALIZED RATIO (INR) REFERENCE RANGES Reference [...] OC Reviewed date:04/08/2024 12:30:51 PM Interpretation:Therapeutic Performing Lab:[facility], [address] [place] [phone] Notes/Report: Prothrombin Time Whole Bld POC 40.1 11.1-13.5 sec INR WHOLE BLOOD POC Reviewed date:04/22/2024 09:03:12 AM Interpretation:Subtherapeutic Performing Lab:[facility], [address] [place] [phone] Notes/Report: PT, INR - Anti Coag Clinic 1.9 0.9-1.1 METER #: [id number] INTERNATIONAL NORMALIZED RATIO (INR) REFERENCE RANGES Reference [...] OC Reviewed date:04/22/2024 09:03:12 AM Interpretation:Subtherapeutic Performing Lab:[facility], [address] [place] [phone] Notes/Report: Prothrombin Time Whole Bld POC 22.5 11.1-13.5 sec INR WHOLE BLOOD POC Reviewed date:05/06/2024 10:42:32 AM Interpretation:Subtherapeutic Performing Lab:[facility], [address] [place] [phone] Notes/Report: PT, INR - Anti Coag Clinic 2.2 0.9-1.1 METER #: [id number] INTERNATIONAL NORMALIZED RATIO (INR) REFERENCE RANGES Reference [...] OC Reviewed date:05/06/2024 10:42:32 AM Interpretation:Subtherapeutic Performing Lab:[facility], [address] [place] [phone] Notes/Report: Prothrombin Time Whole Bld POC 26.0 11.1-13.5 sec INR WHOLE BLOOD POC Reviewed date:05/20/2024 12:13:06 PM Interpretation:Subtherapeutic Performing Lab:[facility], [address] [place] [phone] Notes/Report: PT, INR - Anti Coag Clinic 2.1 0.9-1.1 METER #: [id number] INTERNATIONAL NORMALIZED RATIO (INR) REFERENCE RANGES Reference [...] OC Reviewed date:05/20/2024 12:13:06 PM Interpretation:Subtherapeutic Performing Lab:[facility], [address] [place] [phone] Notes/Report: Prothrombin Time Whole Bld POC 25.3 11.1-13.5 sec INR WHOLE BLOOD POC Reviewed date:06/03/2024 11:35:39 AM Interpretation:Subtherapeutic Performing Lab:[facility], [address] [place] [phone] Notes/Report: PT, INR - Anti Coag Clinic 1.6 0.9-1.1 METER #: [id number] INTERNATIONAL NORMALIZED RATIO (INR) REFERENCE RANGES Reference [...] OC Reviewed date:06/03/2024 11:35:39 AM Interpretation:Subtherapeutic Performing Lab:[facility], [address] [place] [phone] Notes/Report: Prothrombin Time Whole Bld POC 18.8 11.1-13.5 sec INR WHOLE BLOOD POC Reviewed date:06/08/2024 10:17:40 AM Interpretation:Subtherapeutic Performing Lab:[facility], [address] [place] [phone] Notes/Report: PT, INR - Anti Coag Clinic 1.9 0.9-1.1 METER #: [id number] INTERNATIONAL NORMALIZED RATIO (INR) REFERENCE RANGES Reference [...] OC Reviewed date:06/08/2024 10:17:40 AM Interpretation:Subtherapeutic Performing Lab:[facility], [address] [place] [phone] Notes/Report: Prothrombin Time Whole Bld POC 22.6 11.1-13.5 sec INR WHOLE BLOOD POC Reviewed date:06/15/2024 10:40:13 AM Interpretation:Subtherapeutic Performing Lab:[facility], [address] [place] [phone] Notes/Report: PT, INR - Anti Coag Clinic 1.7 0.9-1.1 METER #: [id number] INTERNATIONAL NORMALIZED RATIO (INR) REFERENCE RANGES Reference [...] OC Reviewed date:06/15/2024 10:40:13 AM Interpretation:Subtherapeutic Performing Lab:[facility], [address] [place] [phone] Notes/Report: Prothrombin Time Whole Bld POC 20.2 11.1-13.5 sec REASON FOR REFERRAL Reason Polyarthralgia Osteo arthritis Diagnosis 1 Unspecified osteoart hritis, unspecified site (M19.90) Referral Organization Rc Hernandez O, FACP Referring Provider First Name Rc Referring Provider Last Name Avelino Referring Provider Speciality Internal M edicine Referred Provider Barrington Cano Referred Provider Specialty Rheumatology General Notes Larisa Macario 11:17:49 AM EST > referral faxed; patient aware specialist's office will contact him., Larisa Macario 05/07/2024 04:25:08 PM EST > [facility] accepting new patients., Rc You 05/07/2024 05:40:16 PM EST > [facility], Hope Esteves 05/11/2024 09:24:10 AM EST > Patient called and said he will not go to [facility] and he will figure something else out. [...] Notes Problem Essential hypertension (I10) Active confirmed 50837288 Problem S/P AVR (aortic valve replacement) (Z95.2) Active confirmed 6271460701438 Problem Hyperlipidemia, unspecified hyperlipidemia type (E78.5) Active confirmed 57110517 Problem Chronic systolic congestive heart failure (I50.22) Active confirmed 695585619 Problem Coronary artery disease involving [place] coronary artery of [place] heart without angina pectoris (I25.10) Active confirmed 66376920 Problem Age-related cataract of both eyes, unspecified age-related cataract type (H25.9) Active confirmed 47112422 Problem Unspecified osteoarthritis, unspecified site (M19.90) Active confirmed Osteoarthritis (330281561) VITAL SIGNS Blood pressure diastolic 76 mm Hg 02/18/2024 Height 69 in 02/18/2024 Blood pressure systolic 152 mm Hg 02/18/2024 Weight 268 lbs 02/18/2024 BMI 39.57 kg/m2 02/18/2024 Encounters Encounter Location Date Provider Diagnosis Rc You DO, [address] [id number] 08/13/2023 Rc You Chronic systolic congestive heart failure I50.22 ; Coronary artery disease involving [place] coronary artery of [place] heart without angina pectoris I25.10 ; S/P AVR (aortic valve replacement) Z95.2 and Hyperlipidemia, unspecified hyperlipidemia type E78.5 Rc You DO, [address] [id number] 02/18/2024 Rc You Essential hypertensi on I10 ; S/P AVR (aortic valve replacement) Z95.2 ; Hyperlipidemia, unspecified hyperlipidemia type E78.5 ; Chronic systolic congestive heart failure I50.22 and Coronary artery disease involving [place] coronary artery of [place] heart without angina pectoris I25.10 Rc You DO, [address] [id number] 05/07/2024 Rc You ASSESSMENTS Encounter Date Diagnosis Assessment Notes Treatment Notes Treatment Clinical Notes 08/13/2023 Chronic systolic congestive heart failure (ICD-10 - I50.22) 08/13/2023 Coronary artery disease involving [place] coronary artery of [place] heart without angina pectoris (ICD-10 - I25.10) 02/18/2024 Essential hypertension (ICD-10 - I10) 02/18/2024 S/P AVR (aortic valv e replacement) (ICD-10 - Z95.2) 08/13/2023 S/P AVR (aortic valv e replacement) (ICD-10 - Z95.2) 02/18/2024 Hyperlipidemia, unspecified hyperlipidemia type (ICD-10 - E78.5) 08/13/2023 Hyperlipidemia, unspecified hyperlipidemia type (ICD-10 - E78.5) 02/18/2024 Chronic systolic congestive heart failure (ICD-10 - I50.22) 02/18/2024 Coronary artery disease involving [place] coronary artery of [place] heart without angina pectoris (ICD-10 - I25.10) PLAN OF TREATMENT No Information Insurance Providers Payer Name Payer Address Payer Phone Subscriber Number Group Number Insured Name Patient Relationship to Insured Coverage Start Date Coverage End Date MEDICARE [address] [place] [phone] [id number] Tad Villar Self - patient is the insured [employer] [address] [place] [address] [id number] Tad Villar Self - patient is the [...]
--- OUTSIDE RECORDS SUMMARY | 2024-06-29 14:52 | XMS_ITS | Patient Health Record ---
Author Organization [facility] Address [address] [place] [address] Care Team Providers Care Tmh Teacher Name Role Phone Avelino Jean-Paul ZAPATA Primary Care Provider Unavail able Jean-Paul Lemus Unavailable [phone] ALLERGIES Allergen (clinical drug ingredient) Drug/Non Drug [...] Notes Problem Hypertension (401.9) Active confirmed Hypertension (67053269) Problem Colon cancer screening (V76.51) Active confirmed Colon cancer screening (192072986) Problem Constipation, unspecified constipation type (K59.00) Active confirmed 52014620 Problem Change in bowel habits (R19.4) Active confirmed [id number] PLAN OF TREATMENT No Information Insurance Providers Payer Name Payer Address Payer Phone Subscriber Number Group Number Insured Name Patient Relationship to Insured Coverage Start Date Coverage End Date MEDICARE OF [place] [address] [place] [address] [id number] HANNAH HEIDI Self - patient is the insured [employer] CLAIM[employer] [address] [place] [address] [id number] HEIDI YOUNG Self - patient is the insured MEDICAL (GENERAL) HISTORY Medical History History ICD Code Hypertension Denies [place],DM,CVA,Lung disease,renal dise ase Colonoscopies in [address] 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 Dodson at [facility], pacemaker and defibrillator--sees Dr. Jade DVT in right leg in 2003 Surgical History Surgery Date(Month/Year) 4V CABG and aortic valve replacement in 2013 as above 2013 Defibrillator Pacemaker
== END 2024-06-29 13:26 | disposition home or self-care (01) ==
PROVIDERS: PCP Internal Medicine
DX: R20.0 Anesthesia of skin (principal); I10 Essential (primary) hypertension; I25.10 Atherosclerotic heart disease of native coronary artery without angina pectoris
CPT/HCPCS: 99213

== ENCOUNTER → 2024-06-29 12:44 | Outpatient (BNVA) | payer MEDICARE, SELFPAY | PROVIDERS: PCP Internal Medicine | DX: I11.0 Hypertensive heart disease with heart failure (principal); I25.10 Atherosclerotic heart disease of native coronary artery without angina pectoris; I50.9 Heart failure, unspecified; R20.0 Anesthesia of skin; Z95.2 Presence of prosthetic heart valve; Z87.891 Personal history of nicotine dependence | CPT/HCPCS: 99212 ==

== ENCOUNTER 2024-07-08 07:58 | Outpatient (AMB) | payer MEDICARE, SELFPAY ==
[2024-07-08 08:06] LABS: Prothrombin Time Whole Bld POC 20.3 sec (11.1-13.5); ~PT, ~INR - Anti Coag Clinic 1.7 (0.9-1.1)
--- NOTE | 2024-07-08 08:15 | MHC.OFFVISCO ---
Intake Intake Visit Reasons: Anticoagulation Allergies Penicillins [PENICILLINS] Allergy (Severe, Verified 07/08/24 07:59) HIVES Medication List - Last Reconciled 07/08/24 by Destinee Pascal RN atorvastatin 40 mg PO DAILY furosemide 80mg in the AM and 40mg in the PM orally daily; 30 days lisinopril 40 mg PO DAILY metoprolol succinate ER 50 mg PO DAILY multivit,calc,igg-LK-R2-lycop 240 mcg-30 mcg- 300 mcg (One-A-Day Men's Complete) 1 tab PO DAILY warfarin 5 mg See Protocol PO DAILY Nursing Note INR: 1.7 NOT ING therapeutic range Medications and supplements reviewed No longer taking celebrex and resumed atorvastatin Denies any signs and symptoms of bleeding or bruising or clotting. Bleeding, bruising, clotting discussed Nutritional guidance given - AVOID GREENS TODAY Dose: 5MG TODAY ( 5MG X 3 DAYS THIS WEEK) THEN RESUME 5MG X 2 DAYS/ 2.5MG X 5 DAYS F/U INR: 1 WEEK Patient verbalizes understanding of instructions given WITH DATES ON IT AND READ BACK Anti-Coag Initial Assessment Social Hx Patient Tobacco Use Status: Former Tobacco user alcohol intake: current Alcohol intake frequency: a few times a month Coding Level of Care Code Est Patient Level 1 Diagnoses Current use of anticoagulant therapy Z79.01 Results AMB INR Fingerstick AMB INR Fingerstick 1.7 Last Edit by Destinee Pascal RN on 07/08/24 08:11 MANUAL ENTRY Assessment & Plan Assessment & Plan (1) Current use of anticoagulant therapy: Code(s): Z79.01 - manager intermediate (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
== END 2024-07-08 08:19 | disposition home or self-care (01) ==
LOC: HO.ACS 07:58
PROVIDERS: PCP Internal Medicine; Visit Provider Internal Medicine
DX: Z79.01 Long term (current) use of anticoagulants (principal)

== ENCOUNTER → 2024-07-08 07:58 | Outpatient (BNVA) | payer MEDICARE, SELFPAY | PROVIDERS: PCP Internal Medicine; Visit Provider Internal Medicine | DX: Z95.2 Presence of prosthetic heart valve (principal); Z79.01 Long term (current) use of anticoagulants; Z51.81 Encounter for therapeutic drug level monitoring | CPT/HCPCS: 85610; 99211 ==

== ENCOUNTER 2024-07-13 14:54 | Outpatient (AMB) | payer MEDICARE, SELFPAY ==
--- NOTE | 2024-07-13 14:59 | MHC.PC.OV ---
Vital Signs 07/13/24 15:13 Height 5 ft 6 in Weight 263 lb BMI 42.4 BP 118/74 Blood Pressure Location Rt brachial Pulse 73 Pulse Source Pulse Oximeter Temp 97.4 F Pulse Oximetry (%) 92 Intake Visit Reasons: Heel pain Intake Note: No other complaints Allergies Penicillins [PENICILLINS] Allergy (Severe, Verified 07/13/24 15:41) HIVES Medication List - Last Reconciled 07/13/24 by Irish Jones PA-C atorvastatin 40 mg PO DAILY furosemide 80mg in the AM and 40mg in the PM orally daily; 30 days lidocaine 5% (Lidoderm) 1 patch topical DAILY lisinopril 40 mg PO DAILY metoprolol succinate ER 50 mg PO DAILY multivit,calc,icf-HE-U7-lycop 240 mcg-30 mcg- 300 mcg (One-A-Day Men's Complete) 1 tab PO DAILY warfarin 5 mg See Protocol PO DAILY PFSH Medical History Fatigue Current use of anticoagulant therapy Surgical History History of cardiac cath History of aortic valve replacement Family History Father No problems noted. Mother No problems noted. Social History Alcohol intake: current Alcohol intake frequency: a few times a month Alcohol type: beer Patient Tobacco Use Status: Former Tobacco user Years Smoked: 23 +/- Physical exam (Primary Care) Vital Signs: Last Vital Signs Temp 97.4 F 07/13/24 15:13 Pulse 73 07/13/24 15:13 BP 118/74 07/13/24 15:13 Pulse Ox 92 07/13/24 15:13 Care Plan Goal for BP management: <130/80 at goal today BMI result Body Mass Index 42.4 BMI Assessment/Plan discussion: High BMI High, discussed plan: lifestyle, weight reduction, dietary, physical activity and alcohol moderation Tobacco/Smoking Status: Tobacco use Status Patient Tobacco Use Status Former Tobacco user 07/13/24 15:00 Coding Level of Care Code Est Pt Level 4 (14652) Complex EM visit Add On G2211 Diagnoses Essential hypertension I10 CAD (coronary artery disease) I25.10 History of aortic valve replacement Z95.2 ICD (implantable cardioverter-defibrillator) in place Z95.810 Leg edema R60.0 S/P AVR Z95.2 Chronic diastolic CHF (congestive heart failure) I50.32 Current use of anticoagulant therapy Z79.01 DVT (deep venous thrombosis) I82.409 Aortic stenosis I35.0 Atrioventricular block I44.30 Ulcerative colitis K51.90 Hyperlipidemia E78.5 Assessment & Plan Assessment & Plan (1) Essential hypertension: Code(s): I10 - Essential (primary) hypertension Category: Medical Plan: Continue lisinopril 40 mg daily, furosemide 80 mg in the morning and 40 mg at night, metoprolol 25 mg. Blood pressure is at goal today. Condition is chronic and stable continue to monitor. (2) CAD (coronary artery disease): Comment: Status post 4 vessel CABG Code(s): I25.10 - Atherosclerotic heart disease of [place] coronary artery without angina pectoris Category: Medical Plan: Patient currently on aspirin 81 mg daily. Condition is chronic and stable continue to monitor (3) History of aortic valve replacement: Comment: Mechanical Code(s): Z95.2 - Presence of prosthetic heart valve Category: Surgical Plan: Patient currently on Coumadin with a frequent INR checks. Condition is chronic and stable continue to monitor. (4) ICD (implantable cardioverter-defibrillator) in place: Code(s): Z95.810 - Presence of automatic (implantable) cardiac defibrillator Category: Medical Plan: Condition is chronic and stable patient denies any cardiac related complaints. Will continue to monitor. (5) Leg edema: Code(s): R60.0 - Localized edema Category: Medical Plan: Related to the patient's CHF currently on furosemide 80 mg in the morning and 40 at night. Condition is chronic and stable continue to monitor. (6) S/P AVR: Code(s): Z95.2 - Presence of prosthetic heart valve Category: Surgical Plan: Condition is chronic and stable continue to monitor. (7) Chronic diastolic CHF (congestive heart failure): Code(s): I50.32 - Chronic diastolic (congestive) heart failure Category: Medical Plan: Condition is chronic and stable continue to monitor. (8) Current use of anticoagulant therapy: Code(s): Z79.01 - USP (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 Plan: History of aortic valve replacement currently on Coumadin with frequent INR checks. Condition is chronic and stable continue to monitor. (9) DVT (deep venous thrombosis): Code(s): I82.409 - Acute embolism and thrombosis of unspecified deep veins of unspecified lower extremity Category: Medical Plan: Currently on Coumadin with frequent INR checks. Condition is chronic and stable will continue to monitor. (10) Aortic stenosis: Comment: Status post AVR with mechanical [facility] [place] valve Code(s): I35.0 - Nonrheumatic aortic (valve) stenosis Category: Medical Plan: History of aortic valve replacement currently on Coumadin with frequent INR checks. Condition is chronic and stable continue to monitor. (11) Atrioventricular block: Comment: Status post PPP Code(s): I44.30 - Unspecified atrioventricular block Category: Medical Plan: History of aortic valve replacement currently on Coumadin with frequent INR checks. Condition is chronic and stable continue to monitor. (12) Ulcerative colitis: Code(s): K51.90 - Ulcerative colitis, unspecified, without complications Category: Medical Plan: Condition is chronic and stable will continue to monitor. (13) Hyperlipidemia: Code(s): E78.5 - Hyperlipidemia, unspecified Category: Medical Plan: Patient currently on atorvastatin 40 mg daily taking as prescribed. Condition is chronic and stable continue to monitor. Plan Plan - Consider use of lidoderm patch for heel pain management. - Advise patient to monitor heel pain for further developments and consider an x-ray if symptoms worsen. - Review of patient's medication includes furosemide, lisinopril, metoprolol, and warfarin, without need for immediate medication refills. - Follow-up appointment scheduled for August, including lab work prior to the visit. Medications: New lidocaine 5% (Lidoderm) leave on most painful area for up to 12 hrs, then remove for 12 hour then replace after you left off for 12 hours. 1 patch topical DAILY 15 ea 1RF pain Patient Instructions: Patient Instructions - Monitor heel pain and consider an x-ray if symptoms worsen. - Use lidoderm patch as directed for pain: 12 hours on, 12 hours off. - Continue current medications as prescribed. - Plan for blood work before the follow-up appointment in August. - Report any new or concerning symptoms promptly. Scribe Plan - Not visible on output: History of Present Illness The patient is an 84-year-old male presenting with left heel pain. The pain began approximately two weeks ago after using a pedal bell person without adequate foot protection. The patient reports noticing the pain after using the bell person for two weeks with only socks on. Initially, the pain was significant, but it has been improving over the past week. The patient denies any recent falls and is concerned about a possible infection, though there is currently no evidence of infection. The patient is not diabetic. The heel pain is primarily aggravated by stepping. The patient did not wish for an x-ray unless pain repercussions worsen. Social History - Employment: Retired - Family status: Lives with a pet dog, 12 years old - Exercise: Engaged in exercise using a pedal bell person - Functional status: Right shoulder pain affects dressing process - Housing: Lives in a house - Family: Has a referenced family structure including a spouse and two children - Resides in: [place], [place] Review of Systems - Musculoskeletal: Reports chronic right shoulder pain and difficulty bending over. - Cardiovascular: Denies recent falls, not mentioned any acute cardiac symptoms. - Neurologic: Reports cold and numb fingers on the right hand. Physical Exam Appearance: Alert. Oriented X3. No acute distress. Head: Normal external exam. Normocephalic. Atraumatic. Eyes: Pupils are equal, round, and reactive to light. Extraocular movements intact. Conjunctiva and sclera normal. Eyelids normal. Ears: External auditory canal normal. Throat: Pharynx normal. Uvula midline. Moist mucous membranes. Neck: Normal inspection. Neck supple. Full range of motion. No meningeal signs. Cardiovascular: Normal heart rate and rhythm. Respiratory: No respiratory distress. Painless inspiration. Back: Full range of motion noted. Skin: Skin warm and dry. Normal skin color. Normal skin turgor. No rashes/lesions/lacerations noted. Extremities: Extremities exhibit normal range of motion. Extremities nontender. Heel pain noted, possibly due to bone spur. There are no signs of infection there are no wounds. Achilles tendon is intact. There is +4 lower extremity pedal edema. There is no calf tenderness noted. No cyanosis. No pallor noted. Normal capillary refill to toenails. Neuro: Oriented X 3. No motor deficit. No sensory deficit. Reflexes normal. Plan - Consider use of lidoderm patch for heel pain management. - Advise patient to monitor heel pain for further developments and consider an x-ray if symptoms worsen. - Review of patient's medication includes furosemide, lisinopril, metoprolol, and warfarin, without need for immediate medication refills. - Follow-up appointment scheduled for August, including lab work prior to the visit. Patient was informed and verbally consented to the use of an ambient scribe for clinic note documentation during this visit. Discussion Notes The patient and I discussed the potential causation of heel pain, likely related to the use of an bell person pedal, and evaluated the possibility of infection, which was ruled out. I recommended the use of a lidoderm patch to help manage pain symptoms. We also reviewed the patient's ongoing medication regimen. Safety in using the patch was highlighted, specifically adhering to instructions to apply for 12 hours and remove for 12 hours. The patient agreed to monitor symptoms and consider imaging if the condition persists or intensifies. We discussed the necessity of further evaluation, and follow-up blood work was scheduled ahead of the next visit in August. Patient Instructions - Monitor heel pain and consider an x-ray if symptoms worsen. - Use lidoderm patch as directed for pain: 12 hours on, 12 hours off. - Continue current medications as prescribed. - Plan for blood work before the follow-up appointment in August. - Report any new or concerning symptoms promptly.
[2024-07-13 15:13] VITALS: BP 118/74; PULSE 73; TEMP 36.3; O2SAT 92; BMI 42.4
--- OUTSIDE RECORDS SUMMARY | 2024-07-13 15:51 | XMS_ITS ---
Author Organization [facility] Address [address] [place] [address] Care Team Providers Care Automatic Line Set Up Mechanic Name Role Phone Rc You MD Primary Care Provider Unavail able Yue Lobo Unavailable [phone] Allergies Allergen (clinical drug ingredient) Drug/Non Drug Allergy documented on EMR Reaction Allergy Type Onset Date Status ramipril Altace headache Drug Allergy Active acetaminophen / oxycodone Percocet vomiting Drug Allergy Active tramadol Tramadol HCl neuropathy Drug Allergy Act javier atenolol Atenolol headache Drug Allergy Active Penicillin pain Drug Allergy Active Substance with 5-kkjmhnb-2-methylgl utaryl-coenzyme A reductase inhibitor mechanism of action [...] W/U Status Risk Notes Problem Atherosclerosis of [place] artery of both lower extremities, with unspecified presence of clinical manifestation (I70.203) Active confirmed Q7(A), Q8(2B), Q9(1B,2C) Vital Signs Height 5 ft 10 in in 05/03/2024 Weight 260 lbs 05/03/2024 BMI 37.3 kg/m2 05/03/2024 Blood pressure systolic 121 mm Hg 05/03/20 24 Blood pressure diastolic 79 mm Hg 024 Procedures Procedure Date Ordered Date Performed Result Body Sit e 24325-XTNGSZG NAIL, 6 OR MORE 05/03/2024 N/A 28634-OELJ SKIN LESIONS, OVER 4 05/03/2024 N/A Encounters Encounter Location Date Provider Diagnosis [facility] [place] [address] [place] [address] 05/03/2024 Yue Lobo Atherosclerosis of tel[place] artery of both lower extremities, with unspecified presence of clinical manifestation I70.203 ; Tinea unguium B35.1 ; Pain in right toe(s) M79.674 and Pain in left toe(s) M79.675 Assessments Encounter Date Diagnosis (ICD Code) Assessment Notes Treatment Notes Treatment Clinical Notes Section Notes 05/03/2024 Atherosclerosis of [place] artery of both lower extremities, with unspecified presence of clinical manifestation (ICD-10 - I70.203) Q7(A), Q8(2B), Q9(1B,2C) 05/03/2024 Tinea unguium (ICD-10 - B35.1) 05/03/2024 Pain in right toe(s) (ICD-10 - M79.674) 05/03/2024 Pain in left toe(s) (ICD-10 - M79.675) Plan Of Treatment Pending Test Test Name Order Date 55152-QSVNUSO NAIL, 6 OR MORE 05/03/2024 47304-CZRG SKIN LESIONS, OVER 4 05/03/20 24 Next Appt Details Follow Up: prn, Reason: Provider Name:Yue Graham smiley, 09/20/2024 02:45:00 PM, [address] [place], [address], Procedure Notes * Category Sub-Category Detail Notes [...] use of a nail nipper and/or dremel-type external grinder tool, to a more viable healthy nail plate or bed tissue 6-10. Silver nitrate used for any petechial bleeding as necessary. Definitive antifungal treatment options have been reviewed and discussed with the patient. The patient chooses, no pharmaceutical tx - 77773 Keratoma Treatment Parring or Cutting o f Benign Hyperkeratotic Lesion(s) (-57) More than 4 Lesions - The Benign hyperkeratotic lesions, as described in exam, were pared, and/or cut utilizing a sterile 15 blade, tissue nippers, and/or dremel - 10230, Q8 Progress Notes * Tad VILLARDOB:1940 (84 yo M)Acc No.[id number]:05/03/2024 Progress Note Patient:?Tad VILLAR Provider:?Yue Lobo DPM :1940???Age:84 Y???Sex:Male Sam e:05/03/2024 Address:[address] [place] [id number] Pcp:Rc You MD Subjective: * Chief Complaints: [...] ?Exercise: yes, exercise/ [place] [facility] [place] ?Marital status: single. 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 * Medications:?TakingAspirin A dult Low [...] 1.?Tinea unguium - B35.1 (Pr imary)???2.?Atherosclerosis of [place] artery of both lower extremities, with unspecified presence of clinical manifestation - I70.203???Notes :Q7(A), Q8(2B), Q9(1B,2C)???3.?Pain in right toe(s) - M79.674???4.?Pain in left toe(s) - M79.675??? Plan: * Treatment: 2.?Atherosclerosis of tel[place] artery of both lower extremities, with unspecified presence of clinical manifestation?Procedure: 68774-XCFJ SKIN LESIONS, OVER 4 * Procedures:?Debride Nail [...] use of a nail nipper and/or dremel-type external grinder tool, to a more viable healthy nail plate or bed tissue 6-10. Silver nitrate used for any petechial bleeding as necessary. Definitive antifungal treatment options have been reviewed and discussed with the patient. The patient chooses, no pharmaceutical tx - 62260.?Keratoma Treatment:?Parring or Cutting of Benign Hyperkeratotic Lesion(s)?(-57) More than 4 Lesions - The Benign hyperkeratotic lesions, as described in exam, were pared, and/or cut utilizing a sterile 15 blade, tissue nippers, and/or dremel - 53716, Q8.? * Procedure Codes:?00931 DEBRI DE NAIL, 6 OR MORE, Modifiers: XS 01545 TRIM SKIN LESIONS, OVER 4, Modifiers: XS , Q8 * Follow Up:?prn * Images: * Sign off status: Completed true * Provider:?Yue Lobo DPM Date:?07/03/2023 Generated for Gallo moralez/Alvin/Tyrese on:?07/13/2024 03:51 PM EST History and Physical Notes * [...]
--- OUTSIDE RECORDS SUMMARY | 2024-07-13 15:52 | XMS_ITS | Patient Health Record ---
Author Organization [facility] Address [address] [place] [address] Care Team Providers Care [employer] Executive Director Name Role Phone Rc You MD Primary Care Provider Unavail able Yue Lobo Unavailable [phone] Scott Cline Unavailable [phone] Allergies Allergen (clinical drug ingredient) Drug/Non Drug Allergy documented on EMR Reaction Allergy Type Onset Date Status ramipril Altace headache Drug Allergy Active acetaminophen / oxycodone Percocet vomiting Drug Allergy Active tramadol Tramadol HCl neuropathy Drug Allergy Act javier atenolol Atenolol headache Drug Allergy Active Penicillin pain Drug Allergy Active Substance with 2-rrsxbmv-9-methylgl utaryl-coenzyme A reductase inhibitor mechanism of action [...] Problem Acquired hammer toe of right foot (1931344171585121) Other hammer toe(s) (acquired), right foot (M20.41) Active confirmed Problem Acquired hammer toe of left foot (4114042282692465) Other hammer toe(s) (acquired), left foot (M20.42) Active confirmed Problem Intermittent claudication of bilateral lower limbs co-occurrent and due to atherosclerosis (39046659271529750 ) Atherosclerosis of [place] arteries of extremities with intermittent claudication, 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) Active confirmed Problem Atherosclerosis of [place] artery of both lower extremities, with unspecified presence of clinical manifestation (I70.203) Active confirmed Q7(A), Q8(2B), Q9(1B,2 C) Vital Signs Blood pressure diastolic 79 mm Hg 05/03/2024 Height 5 ft 10 in in 05/03/2024 Blood pressure systolic 121 mm Hg 05/03/2024 Weight 260 lbs 05/03/2024 BMI 37.3 kg/m2 05/03/2024 Procedures Procedure Date Ordered Date Performed Result Body Sit e 03749-XQXYRMP NAIL, 6 OR MORE 05/03/2024 N/A 12708-UXFU SKIN LESIONS, OVER 4 05/03/2024 N/A Encounters Encounter Location Date Provider Diagnosis [facility] [place] [address] [place] [address] 10/30/2023 Scott Cline Tinea unguium B35.1 ; Pain in right toe(s) M79.674 ; Pain in left toe(s) M79.675 ; Skin disease L98.9 ; Atherosclerosis of [place] arteries of extremities with intermittent claudication, bilateral legs I70.213 ; Other hammer toe(s) (acquired), left foot M20.42 ; Other hammer toe(s) (acquired), right foot M20.41 and Xerosis cutis L85.[address] [address] 02/02/2024 ScottPineda Tinea unguium B35.1 ; Pain in right toe(s) M79.674 ; Pain in left toe(s) M79.675 ; Skin disease L98.9 ; Atherosclerosis of [place] arteries of extremities with intermittent claudication, bilateral legs I70.213 ; Other hammer toe(s) (acquired), left foot M20.42 ; Other hammer toe(s) (acquired), right foot M20.41 and Xerosis cutis L85.[address] [address] 05/03/2024 Yue Lobo Atherosclerosis of [place] artery of both lower extremities, with unspecified presence of clinical manifestation I70.203 ; Tinea unguium B35.1 ; Pain in right toe(s) M79.674 and Pain in left toe(s) M79.675 Assessments Encounter Date Diagnosis (ICD Code) Assessment Notes Treatment Notes Treatment Clinical Notes Section Notes 10/30/2023 Tinea unguium (ICD-10 - B35.1) 02/02/2024 Tinea unguium (ICD-10 - B35.1) 05/03/2024 Tinea unguium (ICD-10 - B35.1) 05/03/2024 Atherosclerosis of [place] artery of both lower extremities, with unspecified [...] M79.675) 02/02/2024 Skin disease (ICD-10 - L98.9) 10/30/2023 Skin disease (ICD-10 - L98.9) 10/30/2023 Atherosclerosis of [place] arteries of extremities with intermittent claudication, bilateral legs (ICD-10 - I70.213) 02/02/2024 Atherosclerosis of [place] arteries of extremities with intermittent claudication, bilateral legs (ICD-10 - I70.213) 02/02/2024 Other hammer toe(s) (acquired), left foot (ICD-10 - M20.42) 10/30/2023 Other hammer toe(s) (acquired), left foot (ICD-10 - M20.42) 10/30/2023 Other hammer toe(s) (acquired), right foot (ICD-10 - M20.41) 02/02/2024 Other hammer toe(s) (acquired), right foot (ICD-10 - M20.41) 02/02/2024 Xerosis cutis (ICD-10 - L85.3) 10/30/2023 Xerosis cutis (ICD-10 - L85.3) Plan Of Treatment Pending Test Test Name Order Date [id number]-ZHPQIDM NAIL, 6 OR MORE 05/03/2024 34109-FRXC SKIN LESIONS, OVER 4 05/03/20 24 33719-WXTS SKIN LESIONS, 2 TO 4 08/07/19 21 21908-ZKXJ SKIN LESIONS, 2 TO 4 12/28/19 21 52614-UFRH SKIN LESIONS, 2 TO 4 05/02/20 21 11746-UCQM SKIN LESIONS, 2 TO 4 09/06/19 22 Next Appt Details Provider Name:Yue reis, 09/20/2024 02:45:00 PM, [address] [facility], [place], [address], Insurance Providers Payer Name Payer Address Payer Phone Subscriber Number Group Number Insured Name Patient Relationship to Insured Coverage Start Date Coverage End Date Medicare National [employer] [address] [place] [address] [id number] Tad Villar Self - [facility] the [facility] [address] [place] [address] [phone] [id number] Tad Villar Self - patient is the insured Medical (General) History Medical History History ICD Code Hypertension Heart condition Hyperlipidemia Ulcerative colitis Aortic stenosis Coronary artery disease Atrioventricular block Microscopic Hematuria Pneumonia Congestive heart failure DVT, thrombophlebitis Surgical History Surgery Date(Month/Year) cardiac pacemeker bypass surgery Defibrillator valve surgery
--- OUTSIDE RECORDS SUMMARY | 2024-07-13 15:52 | XMS_ITS | Patient Health Record ---
Author Organization [facility] Address [address] [place] [address] Care Team Providers Care Furnace Loader Name Role Phone Avelino (RETIRED) Jean-Paul ZAPATA Primary Care Provid er Unavailable Jean-Paul Lemus Unavailable [phone] ALLERGIES Allergen (clinical drug ingredient) Drug/Non Drug [...] Notes Problem Hypertension (401.9) Active confirmed Hypertension (72555319) Problem Colon cancer screening (V76.51) Active confirmed Colon cancer screening (473613428) Problem Constipation, unspecified constipation type (K59.00) Active confirmed [id number] Problem Change in bowel habits (R19.4) Active confirmed [id number] PLAN OF TREATMENT No Information Insurance Providers Payer Name Payer Address Payer Phone Subscriber Number Group Number Insured Name Patient Relationship to Insured Coverage Start Date Coverage End Date MEDICARE OF [place] [address] [place] [address] [id number] HEIDI YOUNG Self - patient is the insured [employer] CLAIMS [address] [place] [phone] [id number] HEIDI YOUNG Self - patient is the insured MEDICAL (GENERAL) HISTORY Medical History History ICD Code Hypertension Denies FL,DM,CVA,Lung disease,renal dise ase Colonoscopies in [address] 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 Dodson at [facility], pacemaker and defibrillator--sees Dr. Jade DVT in right leg in 2003 Surgical History Surgery Date(Month/Year) 4V CABG and aortic valve replacement in 2013 as above 2012 Defibrillator Pacemaker
--- OUTSIDE RECORDS SUMMARY | 2024-07-13 15:52 | XMS_ITS ---
Author Organization [facility] Address [address] [place] [address] Care Team Providers Care Pastry Finisher Name Role Phone Rc You MD Primary Care Provider Unavail able Yue Lobo Unavailable [phone] Scott Cline Unavailable [phone] Allergies Allergen (clinical drug ingredient) Drug/Non Drug Allergy documented on EMR Reaction Allergy Type Onset Date Status ramipril Altace headache Drug Allergy Active acetaminophen / oxycodone Percocet vomiting Drug Allergy Active tramadol Tramadol HCl neuropathy Drug Allergy Act javier atenolol Atenolol headache Drug Allergy Active Penicillin pain Drug Allergy Active Substance with 1-rijymwe-1-methylgl utaryl-coenzyme A reductase inhibitor mechanism of action [...] 10/30/2023 Encounters Encounter Location Date Provider Diagnosis [facility] [address] [address] 10/30/2023 Scott Cline Tinea unguium B35.1 ; Pain in right toe(s) M79.674 ; Pain in left toe(s) M79.675 ; Skin disease L98.9 ; Atherosclerosis of [place] arteries of extremities with intermittent claudication, bilateral [...] disease (ICD-10 - L98.9) 10/30/2023 Atherosclerosis of [place] arteries of extremities with intermittent claudication, bilateral legs (ICD-10 - I70.213) 10/30/2023 Other hammer toe(s) (acquired), left foot (ICD-10 - M20.42) 10/30/2023 Other hammer toe(s) (acquired), right foot (ICD-10 - M20.41) 10/30/2023 Xerosis cutis (ICD-10 - L85.3) Plan Of Treatment Next Appt Details Follow Up: 3 Months, Reason: Provider Name:Yue reis, 09/20/2024 02:45:00 PM, [address] [place], [address], Procedure Notes * Category Sub-Category Detail Notes [...] as necessary. Patient chooses, no pharmaceutical tx (81851) Keratoma Treatment Parring or Cutting o f Benign Hyperkeratotic Lesion(s) 64837 (2-4 Lesions) - The Benign hyperkeratotic lesions, as described above were pared, and/or cut utilizing a sterile #15 blade, tissue nippers, and/or dremel, Q8 Progress Notes * Tad VILLARDOB:1940 (83 yo M)Acc No.[id number]:10/30/2023 Progress Note Patient:?Tad Villar Provider:?Scott Cline DPM :1940???Age:83 Y???Sex:Male Sam e:10/30/2023 Address:[address] [place], [place] [id number] Pcp:Rc You MD Subjective: * Chief Complaints: [...] Children, none. ?Exercise: yes, exercise/ cardiac re[place] [facility] [place] ?Marital status: single. 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 * Medications:?TakingAspirin A dult Low [...] toe(s) - M79.675?4.?Skin disease - L98.9?5.?Atherosclerosis of [place] arteries of extremities with intermittent claudication, bilateral [...] as necessary. Patient chooses, no pharmaceutical tx (30898).?Keratoma Treatment:?Parring or Cutting of Benign Hyperkeratotic Lesion(s)?49017 (2-4 Lesions) - The Benign hyperkeratotic lesions, as described above were pared, and/or cut utilizing a sterile #15 blade, tissue nippers, and/or dremel, Q8.? * Procedure Codes:?24852 DEBRI DE NAIL, 6 OR MORE, Modifiers: XS 86873 TRIM SKIN LESIONS, 2 TO 4, Modifiers: Q8 * Follow Up:?3 Months * Images: * Sign off status: Completed true * Provider:?Sctot Cline DPM Date:? 024 Generated for Gallo moralez/Alvin/eTransmitting on:?07/13/2024 03:52 PM EST History and Physical Notes * [...]
--- OUTSIDE RECORDS SUMMARY | 2024-07-13 15:52 | XMS_ITS ---
Author Organization Rc You DO, FAC Address [address] [place], [place] [address] Care Team Providers Care Hem Marker Name Role Phone Rc You Primary Care Provider ALLERGIES Allergen (clinical drug ingredient) Drug/Non Drug Allergy documented on EMR Reaction Allergy Type Onset Date Status tramadol Tramadol HCl neuropathy Drug Allergy Act javier acetaminophen / oxycodone Percocet vomiting Drug Allergy Active atenolol Atenolol headache Drug Allergy Active ramipril Altace headache Drug Allergy Active Penicillin pain Drug Allergy Active Tetanus questionable reaction Drug Allergy Active Statins Support insomnia Drug Allergy A ctive REASON FOR VISIT 6 month f/u, Follow [...] Date Provider Diagnosis Rc Vaishnavi You DO, [address] [id number] 08/13/2023 Rc You Chronic systolic congestive heart [...]
--- OUTSIDE RECORDS SUMMARY | 2024-07-13 15:52 | XMS_ITS ---
Author Organization Rc Vaishnavi Avelino ZAPATA, FAC Address [address] [place], [place] [address] Care Team Providers Care Head Teacher Name Role Phone Rc You Primary [...] Location Date Provider Diagnosis Rc You DO, [address] [id number] 02/18/2024 Rc You Essential hypertensi on I10 ; S/P AVR (aortic valve replacement) Z95.2 ; Hyperlipidemia, unspecified hyperlipidemia type E78.5 ; Chronic systolic congestive heart failure I50.22 and Coronary artery disease involving [place] coronary artery of [place] heart without angina pectoris I25.10 ASSESSMENTS Encounter Date Diagnosis Assessment Notes Treatment Notes Treatment Clinical Notes 02/18/2024 Essential hypertension (ICD-10 - I10) 02/18/2024 S/P AVR (aortic valv e replacement) (ICD-10 - Z95.2) 02/18/2024 Hyperlipidemia, unspecified hyperlipidemia type (ICD-10 - E78.5) 02/18/2024 Chronic systolic congestive heart failure (ICD-10 - I50.22) 02/18/2024 Coronary artery disease involving [place] coronary artery of [place] heart without angina pectoris (ICD-10 - I25.10) [...]
--- OUTSIDE RECORDS SUMMARY | 2024-07-13 15:52 | XMS_ITS ---
Author Organization [facility] Address [address] [place] [address] Care Team Providers Care Operations Project Manager Name Role Phone Rc You MD Primary Care Provider Unavail able Yue Lobo Unavailable [phone] Scott Cline Unavailable [phone] Allergies Allergen (clinical drug ingredient) Drug/Non Drug Allergy documented on EMR Reaction Allergy Type Onset Date Status ramipril Altace headache Drug Allergy Active acetaminophen / oxycodone Percocet vomiting Drug Allergy Active tramadol Tramadol HCl neuropathy Drug Allergy Act javier atenolol Atenolol headache Drug Allergy Active Penicillin pain Drug Allergy Active Substance with 7-xjelanr-0-methylgl utaryl-coenzyme A reductase inhibitor mechanism of action [...] 024 Encounters Encounter Location Date Provider Diagnosis [facility] [place] [address] [place] [address] 02/02/2024 Scott Cline Tinea unguium B35.1 ; Pain in right toe(s) M79.674 ; Pain in left toe(s) M79.675 ; Skin disease L98.9 ; Atherosclerosis of [place] arteries of extremities with intermittent claudication, bilateral [...] disease (ICD-10 - L98.9) 02/02/2024 Atherosclerosis of [place] arteries of extremities with intermittent claudication, bilateral legs (ICD-10 - I70.213) 02/02/2024 Other hammer toe(s) (acquired), left foot (ICD-10 - M20.42) 02/02/2024 Other hammer toe(s) (acquired), right foot (ICD-10 - M20.41) 02/02/2024 Xerosis cutis (ICD-10 - L85.3) Plan Of Treatment Next Appt Details Follow Up: 3 Months, Reason: Provider Name:Yue reis, 09/20/2024 02:45:00 PM, [address] [place], [address], Procedure Notes * Category Sub-Category Detail Notes [...] as necessary. Patient chooses, no pharmaceutical tx (08615) Keratoma Treatment Parring or Cutting o f Benign Hyperkeratotic Lesion(s) 85410 (2-4 Lesions) - The Benign hyperkeratotic lesions, as described above were pared, and/or cut utilizing a sterile #15 blade, tissue nippers, and/or dremel, Q8 Progress Notes * Tad VILLARDOB:1940 (83 yo M)Acc No.[id number]:02/02/2024 Progress Note Patient:?Tad Villar Provider:?Scott Cline DPM :1940???Age:83 Y???Sex:Male Sam e:02/02/2024 Address:[address] [place], [place] [phone] Pcp:Rc You MD Subjective: * Chief Complaints: [...] Children, none. ?Exercise: yes, exercise/ cardiac rehab [facility] [place]. ?Marital status: single. 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 * Medications:?TakingAspirin A dult Low [...] toe(s) - M79.675?4.?Skin disease - L98.9?5.?Atherosclerosis of [place] arteries of extremities with intermittent claudication, bilateral [...] as necessary. Patient chooses, no pharmaceutical tx (24447).?Keratoma Treatment:?Parring or Cutting of Benign Hyperkeratotic Lesion(s)?70227 (2-4 Lesions) - The Benign hyperkeratotic lesions, as described above were pared, and/or cut utilizing a sterile #15 blade, tissue nippers, and/or dremel, Q8.? * Procedure Codes:?00217 DEBRI DE NAIL, 6 OR MORE, Modifiers: XS 56597 TRIM SKIN LESIONS, 2 TO 4, Modifiers: Q8 * Follow Up:?3 Months * Images: * Sign off status: Completed true * Provider:?Scott Cline DPM Date:? 024 Generated for Gallo moralez/Alvin/eTelyssa on:?07/13/2024 03:52 PM EST History and Physical [...]
--- OUTSIDE RECORDS SUMMARY | 2024-07-13 15:53 | XMS_ITS ---
Author Organization Rc You DO, [facility] Address [address] [place], [place] [id number] Care Team Providers Care Enamel Shader Name Role Phone Rc You Primary Care Provider REASON FOR VISIT Message SOCIAL HISTORY Sex Assigned At : Social History Observation Description Sex Assigned At Male Encounters Encounter Location Date Provider Diagnosis Rc You DO, FACP [address] [place], [place] [id number] 05/07/2024 Rc You PLAN OF TREATMENT No Information
== END 2024-07-13 15:39 | disposition home or self-care (01) ==
LOC: HO.HMCSH 14:54
PROVIDERS: PCP Internal Medicine; Visit Provider Physician Assistant Medical
DX: I10 Essential (primary) hypertension (principal); I25.10 Atherosclerotic heart disease of native coronary artery without angina pectoris; Z95.2 Presence of prosthetic heart valve; Z95.810 Presence of automatic (implantable) cardiac defibrillator; R60.0 Localized edema; I50.32 Chronic diastolic (congestive) heart failure; Z79.01 Long term (current) use of anticoagulants; I82.409 Acute embolism and thrombosis of unspecified deep veins of unspecified lower extremity; I35.0 Nonrheumatic aortic (valve) stenosis; I44.30 Unspecified atrioventricular block; K51.90 Ulcerative colitis, unspecified, without complications; E78.5 Hyperlipidemia, unspecified

== ENCOUNTER → 2024-07-13 14:54 | Outpatient (BNVA) | payer MEDICARE, SELFPAY | PROVIDERS: PCP Internal Medicine; Visit Provider Physician Assistant Medical | DX: I25.10 Atherosclerotic heart disease of native coronary artery without angina pectoris (principal); R60.0 Localized edema; I11.0 Hypertensive heart disease with heart failure; I50.32 Chronic diastolic (congestive) heart failure; I35.0 Nonrheumatic aortic (valve) stenosis; I44.30 Unspecified atrioventricular block; E78.5 Hyperlipidemia, unspecified; K51.90 Ulcerative colitis, unspecified, without complications; Z95.2 Presence of prosthetic heart valve; Z95.810 Presence of automatic (implantable) cardiac defibrillator; Z79.01 Long term (current) use of anticoagulants | CPT/HCPCS: 99212 ==

== ENCOUNTER 2024-07-15 08:02 | Outpatient (AMB) | payer MEDICARE, SELFPAY ==
[2024-07-15 08:13] LABS: Prothrombin Time Whole Bld POC 52.2 sec (11.1-13.5); ~PT, ~INR - Anti Coag Clinic 4.4 (0.9-1.1)
--- OUTSIDE RECORDS SUMMARY | 2024-07-15 10:55 | XMS_ITS ---
Author Organization [facility] Address [address] [place] [address] Care Team Providers Care Fly Frame Tender Name Role Phone Rc You MD Primary Care Provider Unavail able Yue Lobo Unavailable [phone] Allergies Allergen (clinical drug ingredient) Drug/Non Drug Allergy documented on EMR Reaction Allergy Type Onset Date Status ramipril Altace headache Drug Allergy Active acetaminophen / oxycodone Percocet vomiting Drug Allergy Active tramadol Tramadol HCl neuropathy Drug Allergy Act javier atenolol Atenolol headache Drug Allergy Active Penicillin pain Drug Allergy Active Substance with 4-xutyvpf-6-methylgl utaryl-coenzyme A reductase inhibitor mechanism of action [...] W/U Status Risk Notes Problem Atherosclerosis of [place] artery of both lower extremities, with unspecified presence of clinical manifestation (I70.203) Active confirmed Q7(A), Q8(2B), Q9(1B,2C) Vital Signs Height 5 ft 10 in in 05/03/2024 Weight 260 lbs 05/03/2024 BMI 37.3 kg/m2 05/03/2024 Blood pressure systolic 121 mm Hg 05/03/20 24 Blood pressure diastolic 79 mm Hg 024 Procedures Procedure Date Ordered Date Performed Result Body Sit e 53083-NFKRJHQ NAIL, 6 OR MORE 05/03/2024 N/A 81035-OLIQ SKIN LESIONS, OVER 4 05/03/2024 N/A Encounters Encounter Location Date Provider Diagnosis [facility] [place] [address] [place] [address] 05/03/2024 Yue Lobo Atherosclerosis of [place] artery of both lower extremities, with unspecified presence of clinical manifestation I70.203 ; Tinea unguium B35.1 ; Pain in right toe(s) M79.674 and Pain in left toe(s) M79.675 Assessments Encounter Date Diagnosis (ICD Code) Assessment Notes Treatment Notes Treatment Clinical Notes Section Notes 05/03/2024 Atherosclerosis of [place] artery of both lower extremities, with unspecified presence of clinical manifestation (ICD-10 - I70.203) Q7(A), Q8(2B), Q9(1B,2C) 05/03/2024 Tinea unguium (ICD-10 - B35.1) 05/03/2024 Pain in right toe(s) (ICD-10 - M79.674) 05/03/2024 Pain in left toe(s) (ICD-10 - M79.675) Plan Of Treatment Pending Test Test Name Order Date 87727-IZYDKJE NAIL, 6 OR MORE 05/03/2024 12959-ZGLU SKIN LESIONS, OVER 4 05/03/20 24 Next Appt Details Follow Up: prn, Reason: Provider Name:Yue Graham smiley, 09/20/2024 02:45:00 PM, [address] [place], [address], Procedure Notes * Category Sub-Category Detail Notes [...] use of a nail nipper and/or dremel-type lens grinder rough, to a more viable healthy nail plate or bed tissue 6-10. Silver nitrate used for any petechial bleeding as necessary. Definitive antifungal treatment options have been reviewed and discussed with the patient. The patient chooses, no pharmaceutical tx - 21500 Keratoma Treatment Parring or Cutting o f Benign Hyperkeratotic Lesion(s) (-57) More than 4 Lesions - The Benign hyperkeratotic lesions, as described in exam, were pared, and/or cut utilizing a sterile 15 blade, tissue nippers, and/or dremel - 20803, Q8 Progress Notes * Tad VILLARDOB:1940 (84 yo M)Acc No.[id number]:05/03/2024 Progress Note Patient:?Tad VILLAR Provider:?Yue Lobo DPM :1940???Age:84 Y???Sex:Male Sam e:05/03/2024 Address:[address] [place], [place] [id number] Pcp:Rc You MD Subjective: * Chief Complaints: [...] no, none. ?Exercise: yes, exercise/ cardiac [place] [facility] [place] ?Marital status: single. 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 * Medications:?TakingAspirin A dult Low [...] 1.?Tinea unguium - B35.1 (Pr imary)???2.?Atherosclerosis of pa[place] artery of both lower extremities, with unspecified presence of clinical manifestation - I70.203???Notes :Q7(A), Q8(2B), Q9(1B,2C)???3.?Pain in right toe(s) - M79.674???4.?Pain in left toe(s) - M79.675??? Plan: * Treatment: 2.?Atherosclerosis of [place] artery of both lower extremities, with unspecified presence of clinical manifestation?Procedure: 23829-QJMT SKIN LESIONS, OVER 4 * Procedures:?Debride Nail [...] use of a nail nipper and/or dremel-type lens grinder rough, to a more viable healthy nail plate or bed tissue 6-10. Silver nitrate used for any petechial bleeding as necessary. Definitive antifungal treatment options have been reviewed and discussed with the patient. The patient chooses, no pharmaceutical tx - 95933.?Keratoma Treatment:?Parring or Cutting of Benign Hyperkeratotic Lesion(s)?(-57) More than 4 Lesions - The Benign hyperkeratotic lesions, as described in exam, were pared, and/or cut utilizing a sterile 15 blade, tissue nippers, and/or dremel - 54549, Q8.? * Procedure Codes:?89208 DEBRI DE NAIL, 6 OR MORE, Modifiers: XS 31187 TRIM SKIN LESIONS, OVER 4, Modifiers: XS , Q8 * Follow Up:?prn * Images: * Sign off status: Completed true * Provider:?Yue Lobo DPM Date:?07/03/2023 Generated for Gallo moralez/Alvin/Tyrese on:?07/15/2024 10:54 AM EST History and Physical Notes * [...]
--- OUTSIDE RECORDS SUMMARY | 2024-07-15 10:55 | XMS_ITS ---
Author Organization Rc Vaishnavi Avelino ZAPATA, FACP Address [address] [place], [place] [address] Care Team Providers Care Plasterer Stucco Name Role Phone Rc You Primary Care [...] Location Date Provider Diagnosis Rc You DO, [address] [id number] 02/18/2024 Rc You Essential hypertensi on I10 ; S/P AVR (aortic valve replacement) Z95.2 ; Hyperlipidemia, unspecified hyperlipidemia type E78.5 ; Chronic systolic congestive heart failure I50.22 and Coronary artery disease involving [place] coronary artery of [place] heart without angina pectoris I25.10 ASSESSMENTS Encounter Date Diagnosis Assessment Notes Treatment Notes Treatment Clinical Notes 02/18/2024 Essential hypertension (ICD-10 - I10) 02/18/2024 S/P AVR (aortic valv e replacement) (ICD-10 - Z95.2) 02/18/2024 Hyperlipidemia, unspecified hyperlipidemia type (ICD-10 - E78.5) 02/18/2024 Chronic systolic congestive heart failure (ICD-10 - I50.22) 02/18/2024 Coronary artery disease involving [place] coronary artery of [place] heart without angina pectoris (ICD-10 - I25.10) [...]
--- OUTSIDE RECORDS SUMMARY | 2024-07-15 10:55 | XMS_ITS ---
Author Organization Rc You DO, FACP Address [address], [place] [address] Care Team Providers Care Assistant Manager Quality Management Name Role Phone Rc You Primary Care [...] Date Provider Diagnosis Rc Vaishnavi You DO, [address] [id number] 08/13/2023 Rc You Chronic systolic congestive heart failure I50.22 ; Coronary artery disease involving [place] coronary artery of [place] heart without angina pectoris I25.10 ; S/P AVR (aortic valve replacement) Z95.2 and Hyperlipidemia, unspecified hyperlipidemia type E78.5 ASSESSMENTS Encounter Date Diagnosis Assessment Notes Treatment Notes Treatment Clinical Notes 08/13/2023 Chronic systolic congestive heart failure (ICD-10 - I50.22) 08/13/2023 Coronary artery disease involving [place] coronary artery of [place] heart without angina pectoris (ICD-10 - I25.10) [...]
--- OUTSIDE RECORDS SUMMARY | 2024-07-15 10:56 | XMS_ITS ---
Author Organization [facility] Address [address] [place] [address] Care Team Providers Care E Commerce Marketing Manager Name Role Phone Rc You MD Primary Care Provider Unavail able Yue Lobo Unavailable [phone] Scott Cline Unavailable [phone] Allergies Allergen (clinical drug ingredient) Drug/Non Drug Allergy documented on EMR Reaction Allergy Type Onset Date Status ramipril Altace headache Drug Allergy Active acetaminophen / oxycodone Percocet vomiting Drug Allergy Active tramadol Tramadol HCl neuropathy Drug Allergy Act javier atenolol Atenolol headache Drug Allergy Active Penicillin pain Drug Allergy Active Substance with 1-plnijwq-3-methylgl utaryl-coenzyme A reductase inhibitor mechanism of action [...] 024 Encounters Encounter Location Date Provider Diagnosis [facility] [place] [address] [place] [address] 02/02/2024 Scott Cline Tinea unguium B35.1 ; Pain in right toe(s) M79.674 ; Pain in left toe(s) M79.675 ; Skin disease L98.9 ; Atherosclerosis of [place] arteries of extremities with intermittent claudication, bilateral [...] disease (ICD-10 - L98.9) 02/02/2024 Atherosclerosis of [place] arteries of extremities with intermittent claudication, bilateral legs (ICD-10 - I70.213) 02/02/2024 Other hammer toe(s) (acquired), left foot (ICD-10 - M20.42) 02/02/2024 Other hammer toe(s) (acquired), right foot (ICD-10 - M20.41) 02/02/2024 Xerosis cutis (ICD-10 - L85.3) Plan Of Treatment Next Appt Details Follow Up: 3 Months, Reason: Provider Name:Yue reis, 09/20/2024 02:45:00 PM, [address] [place], [address], Procedure Notes * Category Sub-Category Detail Notes [...] as necessary. Patient chooses, no pharmaceutical tx (94713) Keratoma Treatment Parring or Cutting o f Benign Hyperkeratotic Lesion(s) 32532 (2-4 Lesions) - The Benign hyperkeratotic lesions, as described above were pared, and/or cut utilizing a sterile #15 blade, tissue nippers, and/or dremel, Q8 Progress Notes * Tad VILLARDOB:1940 (83 yo M)Acc No.[id number]:02/02/2024 Progress Note Patient:?Tad Villar Provider:?Scott Cline DPM :1940???Age:83 Y???Sex:Male Sam e:02/02/2024 Address:[address] [place], [place] [phone] Pcp:Rc You MD Subjective: * Chief Complaints: [...] Children, none. ?Exercise: yes, exercise/ cardiac [place] [facility] [place] ?Marital status: single. 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 * Medications:?TakingAspirin A dult Low [...] toe(s) - M79.675?4.?Skin disease - L98.9?5.?Atherosclerosis of [place] arteries of extremities with intermittent claudication, bilateral [...] as necessary. Patient chooses, no pharmaceutical tx (32265).?Keratoma Treatment:?Parring or Cutting of Benign Hyperkeratotic Lesion(s)?79223 (2-4 Lesions) - The Benign hyperkeratotic lesions, as described above were pared, and/or cut utilizing a sterile #15 blade, tissue nippers, and/or dremel, Q8.? * Procedure Codes:?28226 DEBRI DE NAIL, 6 OR MORE, Modifiers: XS 28210 TRIM SKIN LESIONS, 2 TO 4, Modifiers: Q8 * Follow Up:?3 Months * Images: * Sign off status: Completed true * Provider:?Scott Cline DPM Date:? 024 Generated for Gallo moralez/Alvin/eTransmthomas on:?07/15/2024 10:55 AM EST History and Physical Notes * [...]
--- OUTSIDE RECORDS SUMMARY | 2024-07-15 10:56 | XMS_ITS ---
Author Organization Rc You DO, [facility] Address [address] [place], [place] [address] Care Team Providers Care Flanging Operator Name Role Phone Rc You Primary Care Provider REASON FOR VISIT Message SOCIAL HISTORY Sex Assigned At : Social History Observation Description Sex Assigned At Male Encounters Encounter Location Date Provider Diagnosis Rc You DO, FACP [address] [place], [place] [id number] 05/07/2024 Rc You PLAN OF TREATMENT No Information
--- OUTSIDE RECORDS SUMMARY | 2024-07-15 10:56 | XMS_ITS ---
Author Organization [facility] Address [address] [place] [address] Care Team Providers Care Cashier Name Role Phone Rc You MD Primary Care Provider Unavail able Yue Lobo Unavailable [phone] Scott Cline Unavailable [phone] Allergies Allergen (clinical drug ingredient) Drug/Non Drug Allergy documented on EMR Reaction Allergy Type Onset Date Status ramipril Altace headache Drug Allergy Active acetaminophen / oxycodone Percocet vomiting Drug Allergy Active tramadol Tramadol HCl neuropathy Drug Allergy Act javier atenolol Atenolol headache Drug Allergy Active Penicillin pain Drug Allergy Active Substance with 0-bgpguon-0-methylgl utaryl-coenzyme A reductase inhibitor mechanism of action [...] 10/30/2023 Encounters Encounter Location Date Provider Diagnosis [facility] [address] [address] 10/30/2023 Scott Cline Tinea unguium B35.1 ; Pain in right toe(s) M79.674 ; Pain in left toe(s) M79.675 ; Skin disease L98.9 ; Atherosclerosis of [place] arteries of extremities with intermittent claudication, bilateral [...] disease (ICD-10 - L98.9) 10/30/2023 Atherosclerosis of [place] arteries of extremities with intermittent claudication, bilateral legs (ICD-10 - I70.213) 10/30/2023 Other hammer toe(s) (acquired), left foot (ICD-10 - M20.42) 10/30/2023 Other hammer toe(s) (acquired), right foot (ICD-10 - M20.41) 10/30/2023 Xerosis cutis (ICD-10 - L85.3) Plan Of Treatment Next Appt Details Follow Up: 3 Months, Reason: Provider Name:Yue reis, 09/20/2024 02:45:00 PM, [address] [place], [address], Procedure Notes * Category Sub-Category Detail Notes [...] as necessary. Patient chooses, no pharmaceutical tx (42336) Keratoma Treatment Parring or Cutting o f Benign Hyperkeratotic Lesion(s) 73072 (2-4 Lesions) - The Benign hyperkeratotic lesions, as described above were pared, and/or cut utilizing a sterile #15 blade, tissue nippers, and/or dremel, Q8 Progress Notes * Tad VILLARDOB:1940 (83 yo M)Acc No.[id number]:10/30/2023 Progress Note Patient:?Tad Villar Provider:?Scott Cline DPM :1940???Age:83 Y???Sex:Male Sam e:10/30/2023 Address:[address] [place], [place] [phone] Pcp:Rc You MD Subjective: * Chief Complaints: [...] none. ?Exercise: yes, exercise/ cardiac re[place] [facility] [place] ?Marital status: single. 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 * Medications:?TakingAspirin A dult Low [...] toe(s) - M79.675?4.?Skin disease - L98.9?5.?Atherosclerosis of [place] arteries of extremities with intermittent claudication, bilateral [...] as necessary. Patient chooses, no pharmaceutical tx (70713).?Keratoma Treatment:?Parring or Cutting of Benign Hyperkeratotic Lesion(s)?30214 (2-4 Lesions) - The Benign hyperkeratotic lesions, as described above were pared, and/or cut utilizing a sterile #15 blade, tissue nippers, and/or dremel, Q8.? * Procedure Codes:?38994 DEBRI DE NAIL, 6 OR MORE, Modifiers: XS 09652 TRIM SKIN LESIONS, 2 TO 4, Modifiers: Q8 * Follow Up:?3 Months * Images: * Sign off status: Completed true * Provider:?Scott Cline DPM Date:? 024 Generated for Gallo moralez/Alvin/eTransmitting on:?07/15/2024 10:55 AM EST History and Physical [...]
--- OUTSIDE RECORDS SUMMARY | 2024-07-15 10:56 | XMS_ITS | Patient Health Record ---
Author Organization [facility] Address [address] [place] [address] Care Team Providers Care Dent Remover Name Role Phone Avelino (RETIRED) Jean-Paul ZAPATA Primary Care Provid er Unavailable Jean-Paul Lemus Unavailable [phone] ALLERGIES Allergen (clinical drug ingredient) Drug/Non Drug [...] Notes Problem Hypertension (401.9) Active confirmed Hypertension (49429143) Problem Colon cancer screening (V76.51) Active confirmed Colon cancer screening (251646205) Problem Constipation, unspecified constipation type (K59.00) Active confirmed 14185908 Problem Change in bowel habits (R19.4) Active confirmed [id number] PLAN OF TREATMENT No Information Insurance Providers Payer Name Payer Address Payer Phone Subscriber Number Group Number Insured Name Patient Relationship to Insured Coverage Start Date Coverage End Date MEDICARE OF [place] [address] [place] [address] [id number] HEIDI YOUNG Self - patient is the insured [employer] CLAIMS [address] [place] [address] [id number] HEIDI YOUNG Self - patient is the insured MEDICAL (GENERAL) HISTORY Medical History History ICD Code Hypertension Denies LA,DM,CVA,Lung disease,renal dise ase Colonoscopies in [address] 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 Dodson at [facility], pacemaker and defibrillator--sees Dr. Jade DVT in right leg in 2003 Surgical History Surgery Date(Month/Year) 4V CABG and aortic valve replacement in 2013 as above 2012 Defibrillator Pacemaker
--- OUTSIDE RECORDS SUMMARY | 2024-07-15 10:56 | XMS_ITS | Patient Health Record ---
Author Organization [facility] Address [address] [place] [address] Care Team Providers Care Acute Care Surgeon Name Role Phone Rc You MD Primary Care Provider Unavail able Yue Lobo Unavailable [phone] Scott Cline Unavailable [phone] Allergies Allergen (clinical drug ingredient) Drug/Non Drug Allergy documented on EMR Reaction Allergy Type Onset Date Status ramipril Altace headache Drug Allergy Active acetaminophen / oxycodone Percocet vomiting Drug Allergy Active tramadol Tramadol HCl neuropathy Drug Allergy Act javier atenolol Atenolol headache Drug Allergy Active Penicillin pain Drug Allergy Active Substance with 5-fqktlfw-4-methylgl utaryl-coenzyme A reductase inhibitor mechanism of action [...] Problem Acquired hammer toe of right foot (4582089571283612) Other hammer toe(s) (acquired), right foot (M20.41) Active confirmed Problem Acquired hammer toe of left foot (0984057421409990) Other hammer toe(s) (acquired), left foot (M20.42) Active confirmed Problem Intermittent claudication of bilateral lower limbs co-occurrent and due to atherosclerosis (06612149216301168 ) Atherosclerosis of [place] arteries of extremities with intermittent claudication, 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) Active confirmed Problem Atherosclerosis of [place] artery of both lower extremities, with unspecified presence of clinical manifestation (I70.203) Active confirmed Q7(A), Q8(2B), Q9(1B,2 C) Vital Signs Blood pressure diastolic 79 mm Hg 05/03/2024 Height 5 ft 10 in in 05/03/2024 Blood pressure systolic 121 mm Hg 05/03/2024 Weight 260 lbs 05/03/2024 BMI 37.3 kg/m2 05/03/2024 Procedures Procedure Date Ordered Date Performed Result Body Sit e 51646-VAKYNCB NAIL, 6 OR MORE 05/03/2024 N/A 43852-EYZQ SKIN LESIONS, OVER 4 05/03/2024 N/A Encounters Encounter Location Date Provider Diagnosis [facility] [place] [address] [place] [address] 10/30/2023 Scott Cline Tinea unguium B35.1 ; Pain in right toe(s) M79.674 ; Pain in left toe(s) M79.675 ; Skin disease L98.9 ; Atherosclerosis of [place] arteries of extremities with intermittent claudication, bilateral legs I70.213 ; Other hammer toe(s) (acquired), left foot M20.42 ; Other hammer toe(s) (acquired), right foot M20.41 and Xerosis cutis L85.[address] [address] 02/02/2024 ScottPineda Tinea unguium B35.1 ; Pain in right toe(s) M79.674 ; Pain in left toe(s) M79.675 ; Skin disease L98.9 ; Atherosclerosis of [place] arteries of extremities with intermittent claudication, bilateral legs I70.213 ; Other hammer toe(s) (acquired), left foot M20.42 ; Other hammer toe(s) (acquired), right foot M20.41 and Xerosis cutis L85.[address] [address] 05/03/2024 Yue Lobo Atherosclerosis of [place] artery of both lower extremities, with unspecified [...] unguium (ICD-10 - B35.1) 05/03/2024 Atherosclerosis of [place] artery of both lower extremities, with unspecified [...] disease (ICD-10 - L98.9) 10/30/2023 Atherosclerosis of [place] arteries of extremities with intermittent claudication, bilateral legs (ICD-10 - I70.213) 02/02/2024 Atherosclerosis of [place] arteries of extremities with intermittent claudication, bilateral [...] Treatment Pending Test Test Name Order Date 26825-BFSRGSR NAIL, 6 OR MORE 05/03/2024 07619-TZSQ SKIN LESIONS, OVER 4 05/03/20 24 43143-ZUHL SKIN LESIONS, 2 TO 4 08/07/19 21 10790-MRRA SKIN LESIONS, 2 TO 4 12/28/19 21 36761-SPSX SKIN LESIONS, 2 TO 4 05/02/20 21 51825-VDFG SKIN LESIONS, 2 TO 4 09/06/19 22 Next Appt Details Provider Name:Yue reis, 09/20/2024 02:45:00 PM, [address] [facility], [place], [address], Insurance Providers Payer Name Payer Address Payer Phone Subscriber Number Group Number Insured Name Patient Relationship to Insured Coverage Start Date Coverage End Date Medicare National Govt Svcs Inc [address] [place] [address] [id number] Tad Villar Self - patient is the insured [facility] [address] [place] [address] [id number] Tad Villar Self - patient is the insured Medical (General) History Medical History History ICD Code Hypertension Heart condition Hyperlipidemia Ulcerative colitis Aortic stenosis Coronary artery disease Atrioventricular block Microscopic Hematuria Pneumonia Congestive heart failure DVT, thrombophlebitis Surgical History Surgery Date(Month/Year) cardiac pacemeker bypass surgery Defibrillator valve surgery
--- NOTE | 2024-07-15 14:41 | MHC.OFFVISCO ---
Intake Intake Visit Reasons: Anticoagulation Allergies Penicillins [PENICILLINS] Allergy (Severe, Verified 07/15/24 08:06) HIVES Medication List - Last Reconciled 07/15/24 by Destinee Pascal RN atorvastatin 40 mg PO DAILY furosemide 80mg in the AM and 40mg in the PM orally daily; 30 days lidocaine 5% (Lidoderm) 1 patch topical DAILY lisinopril 40 mg PO DAILY metoprolol succinate ER 50 mg PO DAILY multivit,calc,lfd-OI-A2-lycop 240 mcg-30 mcg- 300 mcg (One-A-Day Men's Complete) 1 tab PO DAILY warfarin 5 mg See Protocol PO DAILY Nursing Note INR 4.4 out of therapeutic range Medications and supplements reviewed Patient status: pt has arthritis pain and has started taking Tylenol arthritis q hs - pain is less but still cant sleep well, he may try 1 tylenol arthritis and 1 tylenol pm instead of melatonin that can raise the INR also Medications or supplements: no change in RX Diet: good Denies any signs and symptoms of bleeding or clotting or unusual bruising Bleeding, bruising, clotting discussed Nutritional guidance given: enc to eat a mix of fruits and vegetables Dose: hold today then decrease dose 5mg x 1 day/ 2.5mg x 6 days F/U INR Date : 1 week ?? Patient verbalizing understanding of instructions given. Anti-Coag Initial Assessment Social Hx Patient Tobacco Use Status: Former Tobacco user alcohol intake: current Alcohol intake frequency: a few times a month Coding Level of Care Code Est Patient Level 1 Diagnoses Current use of anticoagulant therapy Z79.01 Results AMB INR Fingerstick AMB INR Fingerstick 4.4 Last Edit by Destinee Pascal RN on 07/15/24 08:14 MANUAL ENTRY Assessment & Plan Assessment & Plan (1) Current use of anticoagulant therapy: Code(s): Z79.01 - FPC (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
== END 2024-07-15 09:16 | disposition home or self-care (01) ==
LOC: HO.ACS 08:02
PROVIDERS: PCP Internal Medicine; Visit Provider Internal Medicine
DX: Z79.01 Long term (current) use of anticoagulants (principal)

== ENCOUNTER → 2024-07-22 08:13 | Outpatient (BNVA) | payer MEDICARE, SELFPAY | PROVIDERS: PCP Internal Medicine; Visit Provider Internal Medicine | DX: Z95.2 Presence of prosthetic heart valve (principal); Z79.01 Long term (current) use of anticoagulants; Z51.81 Encounter for therapeutic drug level monitoring | CPT/HCPCS: 85610; 99211 ==

== ENCOUNTER → 2024-07-27 08:02 | Outpatient (BNVA) | payer MEDICARE, SELFPAY | PROVIDERS: PCP Internal Medicine; Visit Provider Internal Medicine | DX: Z95.2 Presence of prosthetic heart valve (principal); Z79.01 Long term (current) use of anticoagulants; Z51.81 Encounter for therapeutic drug level monitoring | CPT/HCPCS: 85610; 99211 ==

== ENCOUNTER 2024-08-05 07:47 | Outpatient (AMB) | payer MEDICARE, SELFPAY ==
--- OUTSIDE RECORDS SUMMARY | 2024-08-05 07:49 | XMS_ITS ---
Author Organization [facility] Address [address] [place] [address] Care Team Providers Care Newsperson Name Role Phone Rc You MD Primary Care Provider Unavail able Yue Lobo Unavailable [phone] Allergies Allergen (clinical drug ingredient) Drug/Non Drug Allergy documented on EMR Reaction Allergy Type Onset Date Status ramipril Altace headache Drug Allergy Active acetaminophen / oxycodone Percocet vomiting Drug Allergy Active tramadol Tramadol HCl neuropathy Drug Allergy Act javier atenolol Atenolol headache Drug Allergy Active Penicillin pain Drug Allergy Active Substance with 3-yyslxnw-6-methylgl utaryl-coenzyme A reductase inhibitor mechanism of action [...] W/U Status Risk Notes Problem Atherosclerosis of [place] artery of both lower extremities, with unspecified presence of clinical manifestation (I70.203) Active confirmed Q7(A), Q8(2B), Q9(1B,2C) Vital Signs Height 5 ft 10 in in 05/03/2024 Weight 260 lbs 05/03/2024 BMI 37.3 kg/m2 05/03/2024 Blood pressure systolic 121 mm Hg 05/03/20 24 Blood pressure diastolic 79 mm Hg 024 Procedures Procedure Date Ordered Date Performed Result Body Sit e 21079-YOJSOJA NAIL, 6 OR MORE 05/03/2024 N/A 02068-LQXV SKIN LESIONS, OVER 4 05/03/2024 N/A Encounters Encounter Location Date Provider Diagnosis [facility] [address] [place] [address] 05/03/2024 Yue Lobo Atherosclerosis of [place] artery of both lower extremities, with unspecified presence of clinical manifestation I70.203 ; Tinea unguium B35.1 ; Pain in right toe(s) M79.674 and Pain in left toe(s) M79.675 Assessments Encounter Date Diagnosis (ICD Code) Assessment Notes Treatment Notes Treatment Clinical Notes Section Notes 05/03/2024 Atherosclerosis of [place] artery of both lower extremities, with unspecified presence of clinical manifestation (ICD-10 - I70.203) Q7(A), Q8(2B), Q9(1B,2C) 05/03/2024 Tinea unguium (ICD-10 - B35.1) 05/03/2024 Pain in right toe(s) (ICD-10 - M79.674) 05/03/2024 Pain in left toe(s) (ICD-10 - M79.675) Plan Of Treatment Pending Test Test Name Order Date 60021-CZOSHXO NAIL, 6 OR MORE 05/03/2024 20469-BBXP SKIN LESIONS, OVER 4 05/03/20 24 Next Appt Details Follow Up: prn, Reason: Provider Name:Yue Graham smiley, 09/20/2024 02:45:00 PM, [address] [place], [address], Procedure Notes * Category Sub-Category Detail Notes [...] The patient chooses, no pharmaceutical tx - 94788 Keratoma Treatment Parring or Cutting o f Benign Hyperkeratotic Lesion(s) (-57) More than 4 Lesions - The Benign hyperkeratotic lesions, as described in exam, were pared, and/or cut utilizing a sterile 15 blade, tissue nippers, and/or dremel - 83550, Q8 Progress Notes * Tad VILLARDOB:1940 (84 yo M)Acc No.[id number]:05/03/2024 Progress Note Patient:?Tad VILLAR Provider:?Yue Lobo DPM :1940???Age:84 Y???Sex:Male Sam e:05/03/2024 Address:[address] [place], [place] [id number] Pcp:Rc You MD Subjective: * Chief Complaints: [...] – [place]. ?Marital status: single. 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 * Medications:?TakingAspirin A dult Low [...] 1.?Tinea unguium - B35.1 (Pr imary)???2.?Atherosclerosis of [place] artery of both lower extremities, with unspecified presence of clinical manifestation - I70.203???Notes :Q7(A), Q8(2B), Q9(1B,2C)???3.?Pain in right toe(s) - M79.674???4.?Pain in left toe(s) - M79.675??? Plan: * Treatment: 2.?Atherosclerosis of [place] artery of both lower extremities, with unspecified presence of clinical manifestation?Procedure: 34497-FFEA SKIN LESIONS, OVER 4 * Procedures:?Debride Nail [...] The patient chooses, no pharmaceutical tx - 44917.?Keratoma Treatment:?Parring or Cutting of Benign Hyperkeratotic Lesion(s)?(-57) More than 4 Lesions - The Benign hyperkeratotic lesions, as described in exam, were pared, and/or cut utilizing a sterile 15 blade, tissue nippers, and/or dremel - 93478, Q8.? * Procedure Codes:?58228 DEBRI DE NAIL, 6 OR MORE, Modifiers: XS 96991 TRIM SKIN LESIONS, OVER 4, Modifiers: XS , Q8 * Follow Up:?prn * Images: * Sign off status: Completed true * Provider:?Yue Lobo DPM Date:?07/03/2023 Generated for Gallo moralez/Alvin/Tyrese on:?08/05/2024 07:48 AM EST History and Physical Notes * [...]
--- OUTSIDE RECORDS SUMMARY | 2024-08-05 07:49 | XMS_ITS ---
Author Organization Rc Vaishnavi Avelino ZAPATA, FACP Address [address] [place], [place] [address] Care Team Providers Care Morning News Anchor Name Role Phone Rc You Primary Care [...] Date Provider Diagnosis Rc Vaishnavi You DO, [address] [id number] 08/13/2023 Rc You Chronic systolic congestive heart failure I50.22 ; Coronary artery disease involving [place] coronary artery of [place] heart without angina pectoris I25.10 ; S/P AVR (aortic valve replacement) Z95.2 and Hyperlipidemia, unspecified hyperlipidemia type E78.5 ASSESSMENTS Encounter Date Diagnosis Assessment Notes Treatment Notes Treatment Clinical Notes 08/13/2023 Chronic systolic congestive heart failure (ICD-10 - I50.22) 08/13/2023 Coronary artery disease involving [place] coronary artery of [place] heart without angina pectoris (ICD-10 - I25.10) [...] General Examination GENERAL APPEARANCE: in no ac lime distress, well developed, well nourished HEAD: normocephalic, atrau matic HEART: no murmurs, regular rate and rhythm, S1, S2 normal with a mechanical S2 click LUNGS: clear to auscultatio n bilaterally ABDOMEN: normal, bowel sounds present, soft, nontender, nondistended SKIN: warm and dry EXTREMITIES: no edema PSYCH: alert, oriented, cog nitive function intact
--- OUTSIDE RECORDS SUMMARY | 2024-08-05 07:49 | XMS_ITS ---
Author Organization [facility] Vaishnavi Avelino ZAPATA, FACP Address [address] [place], [place] [phone] Care Team Providers Care Oracle Database Architect Name Role Phone Rc You Primary Care Provider [phone] ALLERGIES Allergen (clinical drug ingredient) Drug/Non Drug [...] Location Date Provider Diagnosis Rc You DO, [address] [id number] 02/18/2024 Rc You Essential hypertensi on I10 ; S/P AVR (aortic valve replacement) Z95.2 ; Hyperlipidemia, unspecified hyperlipidemia type E78.5 ; Chronic systolic congestive heart failure I50.22 and Coronary artery disease involving [place] coronary artery of [place] heart without angina pectoris I25.10 ASSESSMENTS Encounter Date Diagnosis Assessment Notes Treatment Notes Treatment Clinical Notes 02/18/2024 Essential hypertension (ICD-10 - I10) 02/18/2024 S/P AVR (aortic valv e replacement) (ICD-10 - Z95.2) 02/18/2024 Hyperlipidemia, unspecified hyperlipidemia type (ICD-10 - E78.5) 02/18/2024 Chronic systolic congestive heart failure (ICD-10 - I50.22) 02/18/2024 Coronary artery disease involving [place] coronary artery of [place] heart without angina pectoris (ICD-10 - I25.10) [...]
--- OUTSIDE RECORDS SUMMARY | 2024-08-05 07:49 | XMS_ITS ---
Author Organization [facility] Address [address] [place] [address] Care Team Providers Care Ophthalmology Surgical Technician Name Role Phone Rc You MD Primary Care Provider Unavail able Yue Lobo Unavailable [phone] Scott Cline Unavailable [phone] Allergies Allergen (clinical drug ingredient) Drug/Non Drug Allergy documented on EMR Reaction Allergy Type Onset Date Status ramipril Altace headache Drug Allergy Active acetaminophen / oxycodone Percocet vomiting Drug Allergy Active tramadol Tramadol HCl neuropathy Drug Allergy Act javier atenolol Atenolol headache Drug Allergy Active Penicillin pain Drug Allergy Active Substance with 4-orckmav-7-methylgl utaryl-coenzyme A reductase inhibitor mechanism of action [...] 024 Encounters Encounter Location Date Provider Diagnosis [facility] [place] [address] [place] [address] 02/02/2024 Scott Cline Tinea unguium B35.1 ; Pain in right toe(s) M79.674 ; Pain in left toe(s) M79.675 ; Skin disease L98.9 ; Atherosclerosis of [place] arteries of extremities with intermittent claudication, bilateral [...] disease (ICD-10 - L98.9) 02/02/2024 Atherosclerosis of [place] arteries of extremities with intermittent claudication, bilateral legs (ICD-10 - I70.213) 02/02/2024 Other hammer toe(s) (acquired), left foot (ICD-10 - M20.42) 02/02/2024 Other hammer toe(s) (acquired), right foot (ICD-10 - M20.41) 02/02/2024 Xerosis cutis (ICD-10 - L85.3) Plan Of Treatment Next Appt Details Follow Up: 3 Months, Reason: Provider Name:Yue reis, 09/20/2024 02:45:00 PM, [address] [place], [address], Procedure Notes * Category Sub-Category Detail Notes [...] as necessary. Patient chooses, no pharmaceutical tx (10540) Keratoma Treatment Parring or Cutting o f Benign Hyperkeratotic Lesion(s) 99620 (2-4 Lesions) - The Benign hyperkeratotic lesions, as described above were pared, and/or cut utilizing a sterile #15 blade, tissue nippers, and/or dremel, Q8 Progress Notes * Tad VILLARDOB:1940 (83 yo M)Acc No.[id number]:02/02/2024 Progress Note Patient:?Tad Villar Provider:?Scott Cline DPM :1940???Age:83 Y???Sex:Male Sam e:02/02/2024 Address:[address] [place], [place] [phone] Pcp:Rc You MD Subjective: * Chief Complaints: [...] Children, none. ?Exercise: yes, exercise/ cardiac rehab [facility]. ?Marital status: single. 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 * Medications:?TakingAspirin A dult Low [...] toe(s) - M79.675?4.?Skin disease - L98.9?5.?Atherosclerosis of [place] arteries of extremities with intermittent claudication, bilateral [...] as necessary. Patient chooses, no pharmaceutical tx (69410).?Keratoma Treatment:?Parring or Cutting of Benign Hyperkeratotic Lesion(s)?51617 (2-4 Lesions) - The Benign hyperkeratotic lesions, as described above were pared, and/or cut utilizing a sterile #15 blade, tissue nippers, and/or dremel, Q8.? * Procedure Codes:?68122 DEBRI DE NAIL, 6 OR MORE, Modifiers: XS 09681 TRIM SKIN LESIONS, 2 TO 4, Modifiers: Q8 * Follow Up:?3 Months * Images: * Sign off status: Completed true * Provider:?Scott Cline DPM Date:? 024 Generated for Gallo moralez/Alvin/eTtricesmthomas on:?08/05/2024 07:49 AM EST History and Physical Notes * [...]
--- OUTSIDE RECORDS SUMMARY | 2024-08-05 07:49 | XMS_ITS | Patient Health Record ---
Author Organization [facility] Address [address] [place] [address] Care Team Providers Care Oven Laborer Name Role Phone Rc You MD Primary Care Provider Unavail able Yue Lobo Unavailable [phone] Scott Cline Unavailable [phone] Allergies Allergen (clinical drug ingredient) Drug/Non Drug Allergy documented on EMR Reaction Allergy Type Onset Date Status ramipril Altace headache Drug Allergy Active acetaminophen / oxycodone Percocet vomiting Drug Allergy Active tramadol Tramadol HCl neuropathy Drug Allergy Act javier atenolol Atenolol headache Drug Allergy Active Penicillin pain Drug Allergy Active Substance with 9-zaixomq-0-methylgl utaryl-coenzyme A reductase inhibitor mechanism of action [...] Problem Acquired hammer toe of right foot (1480655668173875) Other hammer toe(s) (acquired), right foot (M20.41) Active confirmed Problem Acquired hammer toe of left foot (8186573140747690) Other hammer toe(s) (acquired), left foot (M20.42) Active confirmed Problem Intermittent claudication of bilateral lower limbs co-occurrent and due to atherosclerosis (86707973429779903 ) Atherosclerosis of [place] arteries of extremities with intermittent claudication, 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) Active confirmed Problem Atherosclerosis of [place] artery of both lower extremities, with unspecified presence of clinical manifestation (I70.203) Active confirmed Q7(A), Q8(2B), Q9(1B,2 C) Vital Signs Blood pressure diastolic 79 mm Hg 05/03/2024 Height 5 ft 10 in in 05/03/2024 Blood pressure systolic 121 mm Hg 05/03/2024 Weight 260 lbs 05/03/2024 BMI 37.3 kg/m2 05/03/2024 Procedures Procedure Date Ordered Date Performed Result Body Sit e 45055-HLJLUCG NAIL, 6 OR MORE 05/03/2024 N/A 23484-NLQC SKIN LESIONS, OVER 4 05/03/2024 N/A Encounters Encounter Location Date Provider Diagnosis [facility] [place] [address] [place] [address] 10/30/2023 Scott Cline Tinea unguium B35.1 ; Pain in right toe(s) M79.674 ; Pain in left toe(s) M79.675 ; Skin disease L98.9 ; Atherosclerosis of [place] arteries of extremities with intermittent claudication, bilateral legs I70.213 ; Other hammer toe(s) (acquired), left foot M20.42 ; Other hammer toe(s) (acquired), right foot M20.41 and Xerosis cutis L85.[address] [address] 02/02/2024 ScottPineda Tinea unguium B35.1 ; Pain in right toe(s) M79.674 ; Pain in left toe(s) M79.675 ; Skin disease L98.9 ; Atherosclerosis of [place] arteries of extremities with intermittent claudication, bilateral legs I70.213 ; Other hammer toe(s) (acquired), left foot M20.42 ; Other hammer toe(s) (acquired), right foot M20.41 and Xerosis cutis L85.[address] [address] 05/03/2024 Yue Lobo Atherosclerosis of [place] artery of both lower extremities, with unspecified [...] unguium (ICD-10 - B35.1) 05/03/2024 Atherosclerosis of [place] artery of both lower extremities, with unspecified [...] legs (ICD-10 - I70.213) 02/02/2024 Atherosclerosis of [place] arteries of extremities with [...] Treatment Pending Test Test Name Order Date 73864-YYZWDCZ NAIL, 6 OR MORE 05/03/2024 98916-DYBS SKIN LESIONS, OVER 4 05/03/20 24 41914-YHIQ SKIN LESIONS, 2 TO 4 08/07/19 21 86001-NDWN SKIN LESIONS, 2 TO 4 12/28/19 21 32836-QCGU SKIN LESIONS, 2 TO 4 05/02/20 21 99923-SLHZ SKIN LESIONS, 2 TO 4 09/06/19 22 Next Appt Details Provider Name:Yue reis, 09/20/2024 02:45:00 PM, [address] [facility], [place], [address], Insurance Providers Payer Name Payer Address Payer Phone Subscriber Number Group Number Insured Name Patient Relationship to Insured Coverage Start Date Coverage End Date Medicare National Govt Svcs Inc [address] [place] [address] [id number] Tad Villar Self - patient is the insured [facility] [address] [place] [address] [id number] Tad Villar Self - patient is the insured Medical (General) History Medical History History ICD Code Hypertension Heart condition Hyperlipidemia Ulcerative colitis Aortic stenosis Coronary artery disease Atrioventricular block Microscopic Hematuria Pneumonia Congestive heart failure DVT, thrombophlebitis Surgical History Surgery Date(Month/Year) cardiac pacemeker bypass surgery Defibrillator valve surgery
--- OUTSIDE RECORDS SUMMARY | 2024-08-05 07:50 | XMS_ITS ---
Author Organization Rc You DO, [facility] Address [address] [place], [place] [phone] Care Team Providers Care Channel Marketing Coordinator Name Role Phone Rc You Primary Care Provider REASON FOR VISIT Message SOCIAL HISTORY Sex Assigned At : Social History Observation Description Sex Assigned At Male Encounters Encounter Location Date Provider Diagnosis Rc You DO, FACP [address] [place], [place] [phone] 05/07/2024 Rc You PLAN OF TREATMENT No Information
--- OUTSIDE RECORDS SUMMARY | 2024-08-05 07:50 | XMS_ITS | Patient Health Record ---
Author Organization [facility] Address [address] [place] [address] Care Team Providers Care Sales Operations Consultant Name Role Phone Avelino (RETIRED) Jean-Paul ZAPATA Primary Care Provid er Unavailable Jean-Paul Lemus Unavailable [phone] ALLERGIES Allergen (clinical drug ingredient) Drug/Non Drug [...] Notes Problem Hypertension (401.9) Active confirmed Hypertension (15828842) Problem Colon cancer screening (V76.51) Active confirmed Colon cancer screening (495120776) Problem Constipation, unspecified constipation type (K59.00) Active confirmed 04105762 Problem Change in bowel habits (R19.4) Active confirmed [id number] PLAN OF TREATMENT No Information Insurance Providers Payer Name Payer Address Payer Phone Subscriber Number Group Number Insured Name Patient Relationship to Insured Coverage Start Date Coverage End Date MEDICARE OF [place] [address] [place] [address] [phone] [id number] HEIDI YOUNG Self - patient is the insured MEDEX ATTN CLAIMS [address] [place] [address] [id number] HEIDI YOUNG Self - patient is the insured MEDICAL (GENERAL) HISTORY Medical History History ICD Code Hypertension Denies [place],DM,CVA,Lung disease,renal dise ase Colonoscopies in [address] 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 Dodson at [facility], pacemaker and defibrillator--sees Dr. Jade DVT in right leg in 2003 Surgical History Surgery Date(Month/Year) 4V CABG and aortic valve replacement in 2013 as above 2012 Defibrillator Pacemaker
--- OUTSIDE RECORDS SUMMARY | 2024-08-05 07:50 | XMS_ITS ---
Author Organization [facility] Address [address] [place] [address] Care Team Providers Care Payment Manager Name Role Phone Rc You MD Primary Care Provider Unavail able Yue Lobo Unavailable [phone] Scott Cline Unavailable [phone] Allergies Allergen (clinical drug ingredient) Drug/Non Drug Allergy documented on EMR Reaction Allergy Type Onset Date Status ramipril Altace headache Drug Allergy Active acetaminophen / oxycodone Percocet vomiting Drug Allergy Active tramadol Tramadol HCl neuropathy Drug Allergy Act javier atenolol Atenolol headache Drug Allergy Active Penicillin pain Drug Allergy Active Substance with 5-nupluyu-8-methylgl utaryl-coenzyme A reductase inhibitor mechanism of action [...] 10/30/2023 Encounters Encounter Location Date Provider Diagnosis [facility] [address] [address] 10/30/2023 Scott Cline Tinea unguium B35.1 ; Pain in right toe(s) M79.674 ; Pain in left toe(s) M79.675 ; Skin disease L98.9 ; Atherosclerosis of [place] arteries of extremities with intermittent claudication, bilateral [...] disease (ICD-10 - L98.9) 10/30/2023 Atherosclerosis of [place] arteries of extremities with intermittent claudication, bilateral legs (ICD-10 - I70.213) 10/30/2023 Other hammer toe(s) (acquired), left foot (ICD-10 - M20.42) 10/30/2023 Other hammer toe(s) (acquired), right foot (ICD-10 - M20.41) 10/30/2023 Xerosis cutis (ICD-10 - L85.3) Plan Of Treatment Next Appt Details Follow Up: 3 Months, Reason: Provider Name:Yue reis, 09/20/2024 02:45:00 PM, [address] [place], [address], Procedure Notes * Category Sub-Category Detail Notes [...] as necessary. Patient chooses, no pharmaceutical tx (83397) Keratoma Treatment Parring or Cutting o f Benign Hyperkeratotic Lesion(s) 37642 (2-4 Lesions) - The Benign hyperkeratotic lesions, as described above were pared, and/or cut utilizing a sterile #15 blade, tissue nippers, and/or dremel, Q8 Progress Notes * Tad VILLARDOB:1940 (83 yo M)Acc No.[id number]:10/30/2023 Progress Note Patient:?Tad Villar Provider:?Scott Cline DPM :1940???Age:83 Y???Sex:Male Sam e:10/30/2023 Address:[address] [place], [place] [phone] Pcp:Rc You MD Subjective: * Chief Complaints: [...] Children, none. ?Exercise: yes, exercise/ cardiac rehab [facility]. ?Marital status: single. 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 * Medications:?TakingAspirin A dult Low [...] toe(s) - M79.675?4.?Skin disease - L98.9?5.?Atherosclerosis of [place] arteries of extremities with intermittent claudication, bilateral [...] as necessary. Patient chooses, no pharmaceutical tx (84184).?Keratoma Treatment:?Parring or Cutting of Benign Hyperkeratotic Lesion(s)?20095 (2-4 Lesions) - The Benign hyperkeratotic lesions, as described above were pared, and/or cut utilizing a sterile #15 blade, tissue nippers, and/or dremel, Q8.? * Procedure Codes:?51823 DEBRI DE NAIL, 6 OR MORE, Modifiers: XS 09934 TRIM SKIN LESIONS, 2 TO 4, Modifiers: Q8 * Follow Up:?3 Months * Images: * Sign off status: Completed true * Provider:?Scott Cline DPM Date:? 024 Generated for Gallo moralez/Alvin/eTransmitting on:?08/05/2024 07:49 AM EST History and Physical [...]
[2024-08-05 08:06] LABS: Prothrombin Time Whole Bld POC 31.3 sec (11.1-13.5); ~PT, ~INR - Anti Coag Clinic 2.6 (0.9-1.1)
--- NOTE | 2024-08-05 08:09 | MHC.OFFVISCO ---
Intake Intake Visit Reasons: Anticoagulation Allergies Penicillins [PENICILLINS] Allergy (Severe, Verified 08/05/24 08:01) HIVES Medication List - Last Reconciled 08/05/24 by Janet Deng, RN acetaminophen ER 650 mg PO ONCE atorvastatin 40 mg PO DAILY furosemide 80mg in the AM and 40mg in the PM orally daily; 30 days lidocaine 5% (Lidoderm) 1 patch topical DAILY lisinopril 40 mg PO DAILY melatonin mg PO PRN metoprolol succinate ER 50 mg PO DAILY multivit,calc,cxf-JF-V2-lycop 240 mcg-30 mcg- 300 mcg (One-A-Day Men's Complete) 1 tab PO DAILY warfarin 5 mg See Protocol PO DAILY Nursing Note INR: 2.6 in therapeutic range of 2-3 Pt fell yesterday on the ice and hit his head. He has a bruise around his right eye. States he knew he should go to the hospital but he didn't want to go. He is A&O X 3. Encouraged to go to get a ct scan of head but refused. 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
== END 2024-08-05 08:23 | disposition home or self-care (01) ==
LOC: HO.ACS 07:47
PROVIDERS: PCP Internal Medicine; Visit Provider Internal Medicine
DX: Z79.01 Long term (current) use of anticoagulants (principal)

== ENCOUNTER → 2024-08-05 07:47 | Outpatient (BNVA) | payer MEDICARE, SELFPAY | PROVIDERS: PCP Internal Medicine; Visit Provider Internal Medicine | DX: Z95.2 Presence of prosthetic heart valve (principal); Z79.01 Long term (current) use of anticoagulants; Z51.81 Encounter for therapeutic drug level monitoring | CPT/HCPCS: 85610; 99211 ==

== ENCOUNTER 2024-08-12 07:58 | Outpatient (AMB) | payer MEDICARE, SELFPAY ==
--- OUTSIDE RECORDS SUMMARY | 2024-08-12 08:05 | XMS_ITS ---
Author Organization [facility]nav[facility] Avelino ZAPATA, FAC Address [address] [place], [place] [id number] Care Team Providers Care Television Host Name Role Phone Rc You Primary Care Provider [phone] ALLERGIES Allergen (clinical drug ingredient) Drug/Non Drug [...] Location Date Provider Diagnosis Rc You DO, [address] [id number] 02/18/2024 Rc You Essential hypertensi on I10 ; S/P AVR (aortic valve replacement) Z95.2 ; Hyperlipidemia, unspecified hyperlipidemia type E78.5 ; Chronic systolic congestive heart failure I50.22 and Coronary artery disease involving [place] coronary artery of [place] heart without angina pectoris I25.10 ASSESSMENTS Encounter Date Diagnosis Assessment Notes Treatment Notes Treatment Clinical Notes 02/18/2024 Essential hypertension (ICD-10 - I10) 02/18/2024 S/P AVR (aortic valv e replacement) (ICD-10 - Z95.2) 02/18/2024 Hyperlipidemia, unspecified hyperlipidemia type (ICD-10 - E78.5) 02/18/2024 Chronic systolic congestive heart failure (ICD-10 - I50.22) 02/18/2024 Coronary artery disease involving [place] coronary artery of [place] heart without angina pectoris (ICD-10 - I25.10) [...]
--- OUTSIDE RECORDS SUMMARY | 2024-08-12 08:05 | XMS_ITS | Patient Health Record ---
Author Organization [facility] Address [address] [place] [address] Care Team Providers Care Microelectronics Technician Name Role Phone Rc You MD Primary Care Provider Unavail able Yue Lobo Unavailable [phone] Scott Cline Unavailable [phone] Allergies Allergen (clinical drug ingredient) Drug/Non Drug Allergy documented on EMR Reaction Allergy Type Onset Date Status ramipril Altace headache Drug Allergy Active acetaminophen / oxycodone Percocet vomiting Drug Allergy Active tramadol Tramadol HCl neuropathy Drug Allergy Act javier atenolol Atenolol headache Drug Allergy Active Penicillin pain Drug Allergy Active Substance with 2-clqkhzw-1-methylgl utaryl-coenzyme A reductase inhibitor mechanism of action [...] Problem Acquired hammer toe of right foot (9746018843224148) Other hammer toe(s) (acquired), right foot (M20.41) Active confirmed Problem Acquired hammer toe of left foot (6521200859928627) Other hammer toe(s) (acquired), left foot (M20.42) Active confirmed Problem Intermittent claudication of bilateral lower limbs co-occurrent and due to atherosclerosis (92676792426442666 ) Atherosclerosis of [place] arteries of extremities with intermittent claudication, 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) Active confirmed Problem Atherosclerosis of [place] artery of both lower extremities, with unspecified presence of clinical manifestation (I70.203) Active confirmed Q7(A), Q8(2B), Q9(1B,2 C) Vital Signs Blood pressure diastolic 79 mm Hg 05/03/2024 Height 5 ft 10 in in 05/03/2024 Blood pressure systolic 121 mm Hg 05/03/2024 Weight 260 lbs 05/03/2024 BMI 37.3 kg/m2 05/03/2024 Procedures Procedure Date Ordered Date Performed Result Body Sit e 90856-VNRXUKG NAIL, 6 OR MORE 05/03/2024 N/A 44228-NAJU SKIN LESIONS, OVER 4 05/03/2024 N/A Encounters Encounter Location Date Provider Diagnosis [facility] [place] [address] [place] [address] 10/30/2023 Scott Cline Tinea unguium B35.1 ; Pain in right toe(s) M79.674 ; Pain in left toe(s) M79.675 ; Skin disease L98.9 ; Atherosclerosis of [place] arteries of extremities with intermittent claudication, bilateral legs I70.213 ; Other hammer toe(s) (acquired), left foot M20.42 ; Other hammer toe(s) (acquired), right foot M20.41 and Xerosis cutis L85.[address] [address] 02/02/2024 ScottPineda Tinea unguium B35.1 ; Pain in right toe(s) M79.674 ; Pain in left toe(s) M79.675 ; Skin disease L98.9 ; Atherosclerosis of [place] arteries of extremities with intermittent claudication, bilateral legs I70.213 ; Other hammer toe(s) (acquired), left foot M20.42 ; Other hammer toe(s) (acquired), right foot M20.41 and Xerosis cutis L85.[address] [address] 05/03/2024 Yue Lobo Atherosclerosis of [place] artery of both lower extremities, with unspecified [...] unguium (ICD-10 - B35.1) 05/03/2024 Atherosclerosis of [place] artery of both lower extremities, with unspecified [...] disease (ICD-10 - L98.9) 10/30/2023 Atherosclerosis of [place] arteries of extremities with intermittent claudication, bilateral legs (ICD-10 - I70.213) 02/02/2024 Atherosclerosis of [place] arteries of extremities with intermittent claudication, bilateral [...] Treatment Pending Test Test Name Order Date 96064-CYNQYAU NAIL, 6 OR MORE 05/03/2024 39013-FLOR SKIN LESIONS, OVER 4 05/03/20 24 87717-WAOU SKIN LESIONS, 2 TO 4 08/07/19 21 85163-LUUF SKIN LESIONS, 2 TO 4 12/28/19 21 65934-DPAN SKIN LESIONS, 2 TO 4 05/02/20 21 81122-NJAC SKIN LESIONS, 2 TO 4 09/06/19 22 Next Appt Details Provider Name:Yue reis, 09/20/2024 02:45:00 PM, [address] [facility], [place], [address], Insurance Providers Payer Name Payer Address Payer Phone Subscriber Number Group Number Insured Name Patient Relationship to Insured Coverage Start Date Coverage End Date Medicare National Govt Svcs Inc [address] [place] [address] [id number] Tad Villar Self - patient is the insured [facility] [address] [place] [address] [id number] Tad Villar Self - patient is the insured Medical (General) History Medical History History ICD Code Hypertension Heart condition Hyperlipidemia Ulcerative colitis Aortic stenosis Coronary artery disease Atrioventricular block Microscopic Hematuria Pneumonia Congestive heart failure DVT, thrombophlebitis Surgical History Surgery Date(Month/Year) cardiac pacemeker bypass surgery Defibrillator valve surgery
--- OUTSIDE RECORDS SUMMARY | 2024-08-12 08:05 | XMS_ITS ---
Author Organization Rc You DO, [facility] Address [address] [place], [place] [address] Care Team Providers Care Pipe Fitter Name Role Phone Rc You Primary Care Provider [phone] ALLERGIES Allergen (clinical drug ingredient) Drug/Non Drug [...] Date Provider Diagnosis Rc Vaishnavi You DO, [address] [id number] 08/13/2023 Rc You Chronic systolic congestive heart failure I50.22 ; Coronary artery disease involving [place] coronary artery of [place] heart without angina pectoris I25.10 ; S/P AVR (aortic valve replacement) Z95.2 and Hyperlipidemia, unspecified hyperlipidemia type E78.5 ASSESSMENTS Encounter Date Diagnosis Assessment Notes Treatment Notes Treatment Clinical Notes 08/13/2023 Chronic systolic congestive heart failure (ICD-10 - I50.22) 08/13/2023 Coronary artery disease involving [place] coronary artery of [place] heart without angina pectoris (ICD-10 - I25.10) [...] General Examination GENERAL APPEARANCE: in no ac [place] distress, well developed, well nourished HEAD: normocephalic, atrau matic HEART: no murmurs, regular rate and rhythm, S1, S2 normal with a mechanical S2 click LUNGS: clear to auscultatio n bilaterally ABDOMEN: normal, bowel sounds present, soft, nontender, nondistended SKIN: warm and dry EXTREMITIES: no edema PSYCH: alert, oriented, cog nitive function intact
--- OUTSIDE RECORDS SUMMARY | 2024-08-12 08:05 | XMS_ITS ---
Author Organization [facility] Address [address] [place] [address] Care Team Providers Care Garland Machine Operator Name Role Phone Rc You MD Primary Care Provider Unavail able Yue Lobo Unavailable [phone] Allergies Allergen (clinical drug ingredient) Drug/Non Drug Allergy documented on EMR Reaction Allergy Type Onset Date Status ramipril Altace headache Drug Allergy Active acetaminophen / oxycodone Percocet vomiting Drug Allergy Active tramadol Tramadol HCl neuropathy Drug Allergy Act javier atenolol Atenolol headache Drug Allergy Active Penicillin pain Drug Allergy Active Substance with 8-tkgssiq-3-methylgl utaryl-coenzyme A reductase inhibitor mechanism of action [...] W/U Status Risk Notes Problem Atherosclerosis of redding artery of both lower extremities, with unspecified presence of clinical manifestation (I70.203) Active confirmed Q7(A), Q8(2B), Q9(1B,2C) Vital Signs Height 5 ft 10 in in 05/03/2024 Weight 260 lbs 05/03/2024 BMI 37.3 kg/m2 05/03/2024 Blood pressure systolic 121 mm Hg 05/03/20 24 Blood pressure diastolic 79 mm Hg 024 Procedures Procedure Date Ordered Date Performed Result Body Sit e 77060-VLSRWTH NAIL, 6 OR MORE 05/03/2024 N/A 04047-XGMB SKIN LESIONS, OVER 4 05/03/2024 N/A Encounters Encounter Location Date Provider Diagnosis [facility] [place] [address] [place] [address] 05/03/2024 Yue Lobo Atherosclerosis of redding artery of both lower extremities, with unspecified presence of clinical manifestation I70.203 ; Tinea unguium B35.1 ; Pain in right toe(s) M79.674 and Pain in left toe(s) M79.675 Assessments Encounter Date Diagnosis (ICD Code) Assessment Notes Treatment Notes Treatment Clinical Notes Section Notes 05/03/2024 Atherosclerosis of redding artery of both lower extremities, with unspecified presence of clinical manifestation (ICD-10 - I70.203) Q7(A), Q8(2B), Q9(1B,2C) 05/03/2024 Tinea unguium (ICD-10 - B35.1) 05/03/2024 Pain in right toe(s) (ICD-10 - M79.674) 05/03/2024 Pain in left toe(s) (ICD-10 - M79.675) Plan Of Treatment Pending Test Test Name Order Date 05081-NMHAJSR NAIL, 6 OR MORE 05/03/2024 86958-QCEQ SKIN LESIONS, OVER 4 05/03/20 24 Next Appt Details Follow Up: prn, Reason: Provider Name:Yue Graham smiley, 09/20/2024 02:45:00 PM, [address] [place], [address], Procedure Notes * Category Sub-Category Detail Notes [...] use of a nail nipper and/or dremel-type fiberglass grinder, to a more viable healthy nail plate or bed tissue 6-10. Silver nitrate used for any petechial bleeding as necessary. Definitive antifungal treatment options have been reviewed and discussed with the patient. The patient chooses, no pharmaceutical tx - [address]20 Keratoma Treatment Parring or Cutting o f Benign Hyperkeratotic Lesion(s) (-57) More than 4 Lesions - The Benign hyperkeratotic lesions, as described in exam, were pared, and/or cut utilizing a sterile 15 blade, tissue nippers, and/or dremel - 09414, Q8 Progress Notes * Tad VILLARDOB:1940 (84 yo M)Acc No.[id number]:05/03/2024 Progress Note Patient:?Tad VILLAR Provider:?Yue Lobo DPM :1940???Age:84 Y???Sex:Male Sam e:05/03/2024 Address:[address] [place], [place] [id number] Pcp:Rc You MD Subjective: * Chief Complaints: [...] no, none. ?Exercise: yes, exercise/ cardiac rehab [facility]. ?Marital status: single. 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 * Medications:?TakingAspirin A dult [...] 1.?Tinea unguium - B35.1 (Pr imary)???2.?Atherosclerosis of redding artery of both lower extremities, with unspecified presence of clinical manifestation - I70.203???Notes :Q7(A), Q8(2B), Q9(1B,2C)???3.?Pain in right toe(s) - M79.674???4.?Pain in left toe(s) - M79.675??? Plan: * Treatment: 2.?Atherosclerosis of redding artery of both lower extremities, with unspecified presence of clinical manifestation?Procedure: 34159-ELOZ SKIN LESIONS, OVER 4 * Procedures:?Debride Nail [...] use of a nail nipper and/or dremel-type fiberglass grinder, to a more viable healthy nail plate or bed tissue 6-10. Silver nitrate used for any petechial bleeding as necessary. Definitive antifungal treatment options have been reviewed and discussed with the patient. The patient chooses, no pharmaceutical tx - 77002.?Keratoma Treatment:?Parring or Cutting of Benign Hyperkeratotic Lesion(s)?(-57) More than 4 Lesions - The Benign hyperkeratotic lesions, as described in exam, were pared, and/or cut utilizing a sterile 15 blade, tissue nippers, and/or dremel - 17490, Q8.? * Procedure Codes:?24464 DEBRI DE NAIL, 6 OR MORE, Modifiers: XS 26107 TRIM SKIN LESIONS, OVER 4, Modifiers: XS , Q8 * Follow Up:?prn * Images: * Sign off status: Completed true * Provider:?Yue Lobo DPM Date:?07/03/2023 Generated for Gallo moralez/Alvin/Tyrese on:?08/12/2024 08:05 AM EST History and Physical Notes * [...]
--- OUTSIDE RECORDS SUMMARY | 2024-08-12 08:06 | XMS_ITS | Patient Health Record ---
Author Organization [facility] Address [address] [place] [address] Care Team Providers Care Clerical Support Specialist Name Role Phone Avelino (RETIRED) Jean-Paul ZAPATA Primary Care Provid er Unavailable LemusJean-Paul Unavailable [phone] ALLERGIES Allergen (clinical drug ingredient) Drug/Non Drug [...] W/U Status Risk SNOMED Code Notes Problem Colon cancer screening (V76.51) Active confirmed Colon cancer screening (693422770) Problem Hypertension (401.9) Active confirmed Hypertension (40980686) Problem Change in bowel habits (R19.4) Active confirmed 706396810 Problem Constipation, unspecified constipation type (K59.00) Active confirmed 18472546 PLAN OF TREATMENT No Information Insurance Providers Payer Name Payer Address Payer Phone Subscriber Number Group Number Insured Name Patient Relationship to Insured Coverage Start Date Coverage End Date MEDICARE OF [place] [address] [place] [address] [id number] HEIDI YOUNG Self - patient is the insured MEDEX ATTN CLAIMS [address] [place] [address] [phone] [id number] HEIDI YOUNG Self - patient is the insured MEDICAL (GENERAL) HISTORY Medical History History ICD Code Hypertension Denies [place],DM,CVA,Lung disease,renal dise ase Colonoscopies in [address] 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 Dodson at [facility], pacemaker and defibrillator--sees Dr. Jade DVT in right leg in 2003 Surgical History Surgery Date(Month/Year) 4V CABG and aortic valve replacement in 2013 as above 2012 Defibrillator Pacemaker
--- OUTSIDE RECORDS SUMMARY | 2024-08-12 08:06 | XMS_ITS ---
Author Organization [facility] Address [address] [place] [address] Care Team Providers Care Concierge Receptionist Name Role Phone Rc You MD Primary Care Provider Unavail able Yue Lobo Unavailable [phone] Scott Cline Unavailable [phone] Allergies Allergen (clinical drug ingredient) Drug/Non Drug Allergy documented on EMR Reaction Allergy Type Onset Date Status ramipril Altace headache Drug Allergy Active acetaminophen / oxycodone Percocet vomiting Drug Allergy Active tramadol Tramadol HCl neuropathy Drug Allergy Act javier atenolol Atenolol headache Drug Allergy Active Penicillin pain Drug Allergy Active Substance with 5-gdnoxiy-5-methylgl utaryl-coenzyme A reductase inhibitor mechanism of action [...] 10/30/2023 Encounters Encounter Location Date Provider Diagnosis [facility] [address] [address] 10/30/2023 Scott Cline Tinea unguium B35.1 ; Pain in right toe(s) M79.674 ; Pain in left toe(s) M79.675 ; Skin disease L98.9 ; Atherosclerosis of [place] arteries of extremities with intermittent claudication, bilateral [...] disease (ICD-10 - L98.9) 10/30/2023 Atherosclerosis of [place] arteries of extremities with intermittent claudication, bilateral legs (ICD-10 - I70.213) 10/30/2023 Other hammer toe(s) (acquired), left foot (ICD-10 - M20.42) 10/30/2023 Other hammer toe(s) (acquired), right foot (ICD-10 - M20.41) 10/30/2023 Xerosis cutis (ICD-10 - L85.3) Plan Of Treatment Next Appt Details Follow Up: 3 Months, Reason: Provider Name:Yue reis, 09/20/2024 02:45:00 PM, [address] [place], [address], Procedure Notes * Category Sub-Category Detail Notes [...] as necessary. Patient chooses, no pharmaceutical tx (86814) Keratoma Treatment Parring or Cutting o f Benign Hyperkeratotic Lesion(s) 98875 (2-4 Lesions) - The Benign hyperkeratotic lesions, as described above were pared, and/or cut utilizing a sterile #15 blade, tissue nippers, and/or dremel, Q8 Progress Notes * Tad VILLARDOB:1940 (83 yo M)Acc No.[id number]:10/30/2023 Progress Note Patient:?Tad Villar Provider:?Scott Cline DPM :1940???Age:83 Y???Sex:Male Sam e:10/30/2023 Address:[address] [place], [place] [id number] Pcp:Rc You MD Subjective: * Chief Complaints: [...] [facility]. ?Marital status: single. 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 * Medications:?TakingAspirin A dult Low [...] toe(s) - M79.675?4.?Skin disease - L98.9?5.?Atherosclerosis of [place] arteries of extremities with intermittent claudication, bilateral [...] as necessary. Patient chooses, no pharmaceutical tx (85777).?Keratoma Treatment:?Parring or Cutting of Benign Hyperkeratotic Lesion(s)?78056 (2-4 Lesions) - The Benign hyperkeratotic lesions, as described above were pared, and/or cut utilizing a sterile #15 blade, tissue nippers, and/or dremel, Q8.? * Procedure Codes:?21734 DEBRI DE NAIL, 6 OR MORE, Modifiers: XS 10194 TRIM SKIN LESIONS, 2 TO 4, Modifiers: Q8 * Follow Up:?3 Months * Images: * Sign off status: Completed true * Provider:?Scott Cline DPM Date:? 024 Generated for Gallo moralez/Alvin/eTransmitting on:?08/12/2024 08:06 AM EST History and Physical Notes * [...]
--- OUTSIDE RECORDS SUMMARY | 2024-08-12 08:06 | XMS_ITS ---
Author Organization [facility] Address [address] [place] [address] Care Team Providers Care Shipmaster Name Role Phone Rc You MD Primary Care Provider Unavail able Yue Lobo Unavailable [phone] Scott Cline Unavailable [phone] Allergies Allergen (clinical drug ingredient) Drug/Non Drug Allergy documented on EMR Reaction Allergy Type Onset Date Status ramipril Altace headache Drug Allergy Active acetaminophen / oxycodone Percocet vomiting Drug Allergy Active tramadol Tramadol HCl neuropathy Drug Allergy Act javier atenolol Atenolol headache Drug Allergy Active Penicillin pain Drug Allergy Active Substance with 6-cvdaxwq-6-methylgl utaryl-coenzyme A reductase inhibitor mechanism of action [...] 024 Encounters Encounter Location Date Provider Diagnosis [facility] [place] [address] [place] [address] 02/02/2024 Scott Cline Tinea unguium B35.1 ; Pain in right toe(s) M79.674 ; Pain in left toe(s) M79.675 ; Skin disease L98.9 ; Atherosclerosis of [place] arteries of extremities with intermittent claudication, bilateral [...] disease (ICD-10 - L98.9) 02/02/2024 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 Patient chooses, no pharmaceutical tx (97162) Keratoma Treatment Parring or Cutting o f Benign Hyperkeratotic Lesion(s) 97908 (2-4 Lesions) - The Benign hyperkeratotic lesions, as described above were pared, and/or cut utilizing a sterile #15 blade, tissue nippers, and/or dremel, Q8 Progress Notes * Tad VILLARDOB:1940 (83 yo M)Acc No.[id number]:02/02/2024 Progress Note Patient:?Tad Villar Provider:?Scott Cline DPM :1940???Age:83 Y???Sex:Male Sam e:02/02/2024 Address:[address] [place], [place] [id number] Pcp:Rc You MD Subjective: * Chief Complaints: [...] Children, none. ?Exercise: yes, exercise/ cardiac rehab [facility]. ?Marital status: single. 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 * Medications:?TakingAspirin A dult Low [...] toe(s) - M79.675?4.?Skin disease - L98.9?5.?Atherosclerosis of miami arteries of extremities with intermittent claudication, bilateral [...] as necessary. Patient chooses, no pharmaceutical tx (08123).?Keratoma Treatment:?Parring or Cutting of Benign Hyperkeratotic Lesion(s)?55845 (2-4 Lesions) - The Benign hyperkeratotic lesions, as described above were pared, and/or cut utilizing a sterile #15 blade, tissue nippers, and/or dremel, Q8.? * Procedure Codes:?61000 DEBRI DE NAIL, 6 OR MORE, Modifiers: XS 28560 TRIM SKIN LESIONS, 2 TO 4, Modifiers: Q8 * Follow Up:?3 Months * Images: * Sign off status: Completed true * Provider:?Scott Cline DPM Date:? 024 Generated for Gallo moralez/Alvin/eTelyssa on:?08/12/2024 08:05 AM EST History and Physical [...]
--- OUTSIDE RECORDS SUMMARY | 2024-08-12 08:06 | XMS_ITS ---
Author Organization Rc You DO, [facility] Address [address], [place] [id number] Care Team Providers Care Correctional Officer Sergeant Name Role Phone Rc You Primary Care Provider REASON FOR VISIT Message SOCIAL HISTORY Sex Assigned At : Social History Observation Description Sex Assigned At Male Encounters Encounter Location Date Provider Diagnosis Rc You DO, FACP [address] [place], [place] [id number] 05/07/2024 Rc You PLAN OF TREATMENT No Information
--- NOTE | 2024-08-12 08:16 | MHC.OFFVISCO ---
Intake Intake Visit Reasons: Anticoagulation Allergies Penicillins [PENICILLINS] Allergy (Severe, Verified 08/12/24 08:03) HIVES Medication List - Last Reconciled 08/12/24 by Janet Deng, RN acetaminophen ER 650 mg PO ONCE atorvastatin 40 mg PO DAILY furosemide 80mg in the AM and 40mg in the PM orally daily; 30 days lidocaine 5% (Lidoderm) 1 patch topical DAILY lisinopril 40 mg PO DAILY melatonin mg PO PRN metoprolol succinate ER 50 mg PO DAILY multivit,calc,rtn-EA-P8-lycop 240 mcg-30 mcg- 300 mcg (One-A-Day Men's Complete) 1 tab PO DAILY warfarin 5 mg See Protocol PO DAILY Nursing Note INR: 2.0 in therapeutic range of 2-3 Medications and supplements reviewed No changes in health, diet, medications, or supplements, Denies any signs and symptoms of bleeding or bruising or clotting. Bleeding, bruising, clotting discussed Nutritional guidance given to avoid greens for 3 days and to focus on the foods that raise the INR. Food list reviewed with pt. Dose: 2.5mg daily F/U INR: 2 weeks Patient verbalizes understanding of instructions given Anti-Coag Initial Assessment Social Hx Patient Tobacco Use Status: Former Tobacco user alcohol intake: current Alcohol intake frequency: a few times a month Coding Level of Care Code Est Patient Level 1 Diagnoses Current use of anticoagulant therapy Z79.01 Results AMB INR Fingerstick AMB INR Fingerstick 2.0 Last Edit by Janet Deng RN on 08/12/24 08:13 interface delay Assessment & Plan Assessment & Plan (1) Current use of anticoagulant therapy: Code(s): Z79.01 - intermediate accountant (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
[2024-08-12 08:18] LABS: Prothrombin Time Whole Bld POC 24.3 sec (11.1-13.5)
== END 2024-08-12 08:18 | disposition home or self-care (01) ==
LOC: HO.ACS 07:58
PROVIDERS: PCP Internal Medicine; Visit Provider Internal Medicine
DX: Z79.01 Long term (current) use of anticoagulants (principal)

== ENCOUNTER → 2024-08-12 07:58 | Outpatient (BNVA) | payer MEDICARE, SELFPAY | PROVIDERS: PCP Internal Medicine; Visit Provider Internal Medicine | DX: Z95.2 Presence of prosthetic heart valve (principal); Z79.01 Long term (current) use of anticoagulants; Z51.81 Encounter for therapeutic drug level monitoring | CPT/HCPCS: 85610; 99211 ==

== ENCOUNTER → 2024-08-23 23:59 | Outpatient (BNV) | payer MEDICARE, SELFPAY ==
--- NOTE | 2024-10-10 21:10 | MHC.OFFVIS ---
Intake Visit Reasons: Remote ICD check- [facility] Allergies Penicillins [PENICILLINS] Allergy (Severe, Verified 10/07/24 08:02) HIVES [facility] Medical History Annual physical exam Bilateral knee pain History of bad fall Multiple joint pain Fall on ice Morbid obesity with BMI of 40.0-44.9, adult Cardiomyopathy History of left bundle branch block Hypertension Fatigue Current use of anticoagulant therapy Surgical History History of cardiac cath History of aortic valve replacement Family History Father No problems noted. Mother No problems noted. Social History Alcohol intake: current Alcohol intake frequency: a few times a month Alcohol type: beer Patient Tobacco Use Status: Former Tobacco user Years Smoked: 23 +/- Cognitive needs: No Hearing needs: No Vision needs: No Office Procedures Cardiac Device Check Cardiac Device Check Details: BiV AICD Battery life 2.2 years Bi paced 99% One episode of high atrial rates noted. [id number] Cardiac Device Interrogation, pacemaker or defibrillator Procedure code (CPT) selection complete Assessment & Plan Assessment & Plan (1) ICD (implantable cardioverter-defibrillator) in place: Code(s): Z95.810 - Presence of automatic (implantable) cardiac defibrillator Category: Medical Plan: Coding Level of Care Code Procedure Only Diagnoses ICD (implantable cardioverter-defibrillator) in place Z95.810 CPT Codes Cardiac Device Check - Cardiac Device 14: [id number] Cardiac Device Interrogation, pacemaker or defibrillator ([id number])
== END ==
PROVIDERS: PCP Internal Medicine; Visit Provider Internal Medicine Cardiovascular Disease
DX: Z45.02 Encounter for adjustment and management of automatic implantable cardiac defibrillator (principal)
CPT/HCPCS: 93295

== ENCOUNTER 2024-08-25 09:06 | Outpatient (AMB) | payer MEDICARE, SELFPAY ==
--- NOTE | 2024-08-25 08:54 | MHC.PC.OV ---
Vital Signs 08/25/24 09:00 Height 5 ft 6.25 in Weight 265 lb BMI 42.4 BP 160/76 H Blood Pressure Location Rt brachial Pulse 60 Pulse Source Pulse Oximeter Temp 97.3 F Pulse Oximetry (%) 95 Intake Visit Reasons: 6 month follow up Intake Note: fell two weeks ago Allergies Penicillins [PENICILLINS] Allergy (Severe, Verified 08/25/24 09:35) HIVES Medication List - Last Reconciled 08/25/24 by Irish Jones PA-C acetaminophen ER 650 mg PO ONCE atorvastatin 40 mg PO DAILY furosemide (Lasix) 40 mg PO DAILY lisinopril 40 mg PO DAILY metoprolol succinate ER 50 mg PO DAILY multivit,calc,cge-IQ-I1-lycop 240 mcg-30 mcg- 300 mcg (One-A-Day Men's Complete) 1 tab PO DAILY warfarin 5 mg See Protocol PO DAILY [facility] Medical History (Updated 08/25/24 @ 11:29 by Irish Jones PA-C) Fall on ice Morbid obesity with BMI of 40.0-44.9, adult Cardiomyopathy History of left bundle branch block Hypertension Fatigue Current use of anticoagulant therapy Surgical History History of cardiac cath History of aortic valve replacement Family History Father No problems noted. Mother No problems noted. Social History Alcohol intake: current Alcohol intake frequency: a few times a month Alcohol type: beer Patient Tobacco Use Status: Former Tobacco user Years Smoked: 23 +/- Physical exam (Primary Care) Vital Signs: Last Vital Signs Temp 97.3 F 08/25/24 09:00 Pulse 60 08/25/24 09:00 BP 160/76 H 08/25/24 09:00 Pulse Ox 95 08/25/24 09:00 Care Plan Goal for BP management: <130/80; patient to continue lisinopril 40 mg daily, furosemide 80 mg in the morning and 40 mg at night time, metoprolol 25 mg daily. Patient to monitor his blood pressure for the next 2 weeks and return in 2 weeks with blood pressure diary. BMI result Body Mass Index 42.4 BMI Assessment/Plan discussion: High BMI High, discussed plan: lifestyle, weight reduction, dietary, physical activity and alcohol moderation Tobacco/Smoking Status: Tobacco use Status Patient Tobacco Use Status Former Tobacco user 08/25/24 08:56 Coding Level of Care Code Est Pt Level 4 (14589) Complex EM visit Add On G2211 Diagnoses Hyperlipidemia E78.5 DVT (deep venous thrombosis) I82.409 Chronic diastolic CHF (congestive heart failure) I50.32 Leg edema R60.0 ICD (implantable cardioverter-defibrillator) in place Z95.810 CAD (coronary artery disease) I25.10 History of aortic valve replacement Z95.2 Hypertension I10 Morbid obesity with BMI of 40.0-44.9, adult E66.01; Z68.41 Fall on ice W00.9XXA Assessment & Plan Assessment & Plan (1) Hyperlipidemia: Code(s): E78.5 - Hyperlipidemia, unspecified Category: Medical Plan: LDL Goal <70. Last LDL on 02/20/2024 was 74. Patient to continue atorvastatin 40 mg. Condition is chronic and stable continue to monitor. (2) DVT (deep venous thrombosis): Code(s): I82.409 - Acute embolism and thrombosis of unspecified deep veins of unspecified lower extremity Category: Medical Plan: Patient to continue warfarin with INR checks last INR was 08/12/2024 was 2.0. Condition is chronic and stable continue to monitor. (3) Chronic diastolic CHF (congestive heart failure): Code(s): I50.32 - Chronic diastolic (congestive) heart failure Category: Medical Plan: Patient being followed by Dr. Jade from Cardiology. Patient currently on furosemide reports he was supposed to be taking 40 mg 3 times a day although when I look at last no it appears that patient is supposed to be taking 80 mg in the morning and 40 mg at night. I discussed this with the patient he will start taking it this way. Patient to continue lisinopril 40 mg, metoprolol 50 mg daily along with atorvastatin 40 mg daily. Condition is chronic and stable continue to monitor. (4) Leg edema: Code(s): R60.0 - Localized edema Category: Medical Plan: Patient being followed by Dr. Jade from Cardiology. Patient currently on furosemide reports he was supposed to be taking 40 mg 3 times a day although when I look at last no it appears that patient is supposed to be taking 80 mg in the morning and 40 mg at night. I discussed this with the patient he will start taking it this way. Patient to continue lisinopril 40 mg, metoprolol 50 mg daily along with atorvastatin 40 mg daily. Condition is chronic and stable continue to monitor. (5) ICD (implantable cardioverter-defibrillator) in place: Code(s): Z95.810 - Presence of automatic (implantable) cardiac defibrillator Category: Medical Plan: Patient being followed by Dr. Jade from Cardiology. Patient currently on furosemide reports he was supposed to be taking 40 mg 3 times a day although when I look at last no it appears that patient is supposed to be taking 80 mg in the morning and 40 mg at night. I discussed this with the patient he will start taking it this way. Patient to continue lisinopril 40 mg, metoprolol 50 mg daily along with atorvastatin 40 mg daily. Condition is chronic and stable continue to monitor. (6) CAD (coronary artery disease): Comment: Status post 4 vessel CABG Code(s): I25.10 - Atherosclerotic heart disease of elem coronary artery without angina pectoris Category: Medical Plan: Patient being followed by Dr. Jade from Cardiology. Patient currently on furosemide reports he was supposed to be taking 40 mg 3 times a day although when I look at last no it appears that patient is supposed to be taking 80 mg in the morning and 40 mg at night. I discussed this with the patient he will start taking it this way. Patient to continue lisinopril 40 mg, metoprolol 50 mg daily along with atorvastatin 40 mg daily. Condition is chronic and stable continue to monitor. (7) History of aortic valve replacement: Comment: Mechanical Code(s): Z95.2 - Presence of prosthetic heart valve Category: Surgical Plan: Patient being followed by Dr. Jade from Cardiology. Patient currently on furosemide reports he was supposed to be taking 40 mg 3 times a day although when I look at last no it appears that patient is supposed to be taking 80 mg in the morning and 40 mg at night. I discussed this with the patient he will start taking it this way. Patient to continue lisinopril 40 mg, metoprolol 50 mg daily along with atorvastatin 40 mg daily. Condition is chronic and stable continue to monitor. (8) Hypertension: Code(s): I10 - Essential (primary) hypertension Category: Medical Plan: Patient being followed by Dr. Jade from Cardiology. Patient currently on furosemide reports he was supposed to be taking 40 mg 3 times a day although when I look at last no it appears that patient is supposed to be taking 80 mg in the morning and 40 mg at night. I discussed this with the patient he will start taking it this way. Patient to continue lisinopril 40 mg, metoprolol 50 mg daily along with atorvastatin 40 mg daily. Goal BP<130/80. PATIENT TO MONITOR HIS BLOOD PRESSURE FOR THE NEXT 2 WEEKS AND RETURN IN 2 WEEKS WITH BLOOD PRESSURE DIARY. Condition is chronic and stable continue to monitor. (9) Morbid obesity with BMI of 40.0-44.9, adult: Code(s): E66.01 - Morbid (severe) obesity due to excess calories; Z68.41 - Body mass index [BMI] 40.0-44.9, adult Category: Medical Plan: Patient to improve his diet and exercise regimen. Condition is chronic and stable continue to monitor. (10) Fall on ice: Code(s): W00.9XXA - Unspecified fall due to ice and snow, initial encounter Category: Medical Plan: Patient reports he fell approximately 2 weeks ago. When he was on the ice trying to clear from in front of his mailbox. Did not lose consciousness. He did not get seen and he did have a head injury and has some mild bruising to the right periorbital and right forehead which is old. He is alert oriented x3 pulling moving all extremities. I explained to him any time he falls due to being on warfarin he will need to go to the ER especially he has a head injury for CT scan of brain. Patient understands this. Will continue to monitor. Plan Plan Patient was informed and verbally consented to the use of an ambient scribe for clinic note documentation during this visit. 1. Fall On Ice Plan: The injury sustained due to the fall should be monitored for changes. No additional imaging unless symptoms worsen due to current anticoagulation therapy. 2. Osteoarthritis Plan: Manage with acetaminophen as needed; monitor functional impacts and adjust management accordingly if symptoms persist. 3. Anticoagulation Therapy Plan: Continue warfarin therapy. Complete INR and other bloodwork as scheduled. 4. Hypertension Plan: Continue current hypertension medications. Monitor blood pressure readings at home over the next two weeks to determine trends. 5. Hyperlipidemia Plan: Continue atorvastatin therapy. Review lipid profile after bloodwork. Discussion Notes I discussed with the patient the importance of monitoring symptoms following his fall, especially given his current anticoagulation therapy. I advised him to obtain a CT scan if another fall occurs or if symptoms worsen, due to the risk of potential intracranial bleeding on anticoagulation. We reviewed his current hypertensive management, noting today?s elevated readings and discussed ongoing monitoring of his blood pressure. No changes were made until we track more data. For general health management, I encouraged routine self-monitoring given his preference to remain largely independent. All the conversations were held in a tone to provide understanding and ensure the patient feels well supported. Patient Instructions: Patient Instructions - Monitor your blood pressure at home for the next two weeks and report the trends. - Be cautious to avoid falls; seek immediate care if you experience another fall or worsening symptoms. - Continue taking your current medications as prescribed. - Complete your lab work scheduled for tomorrow morning. Do not eat before your appointment. - Let us know if you need any assistance with obtaining a blood pressure monitor. - Follow up on your physical appointment on the of this month. Scribe Plan - Not visible on output: History of Present Illness The patient is an 84-year-old male presenting for a follow-up visit post-fall. The fall, which occurred on ice two weeks prior, resulted in injuries to his right knee and wrist with no swelling. The patient did not have dizziness, loss of consciousness, or chest pain before the fall, and he reports no worsening of symptoms since. His medical history includes osteoarthritis, affecting the entire body, and hypertension. His current management includes medications such as metoprolol, lisinopril, and furosemide. Today, his blood pressure was documented as 160/80 mmHg, while he reports it generally ranges between 130-140 mmHg. Additionally, he is managed with warfarin anticoagulation therapy, placing him at an elevated risk for bleeding. The patient has a history of a blood clot in his leg from 2003. He is being treated for hyperlipidemia with atorvastatin and takes acetaminophen for arthritis. The patient prefers to manage conditions conservatively without excessive medical intervention. Social History - Lives alone and independently manages daily activities and tasks. - Reluctant to have outside help but open to discussion about potential social support. - Has own transport and performs errands independently. - Has two dishes, a ball and a plate that he uses, indicating minimal requirements for household support. Review of Systems - Cardiovascular: Denies chest pain. - Neurological: Denies dizziness, loss of consciousness. - Musculoskeletal: Reports arthritis affecting the whole body. Denies worsening since the fall. - Integumentary: Reports fingernail loss. - General: Reports a history of a fall with resultant knee and wrist injury. Physical Exam Appearance: Alert. Oriented X3. No acute distress. Head: Normal external exam. Normocephalic. Atraumatic. Eyes: Pupils are equal, round, and reactive to light. Extraocular movements intact. Conjunctiva and sclera normal. Eyelids normal. Ears: External auditory canal normal. Tympanic membranes normal. Throat: Pharynx normal. Uvula midline. Moist mucous membranes. Neck: Normal inspection. Neck supple. Full range of motion. No adenopathy. Thyroid Normal. No meningeal signs. No neck mass noted. Cardiovascular: Normal heart rate and rhythm. Heart sound normal. No murmurs noted. Pulses normal throughout. Respiratory: No respiratory distress. Painless inspiration. Breath sounds normal. No wheezes/rales/rhonchi noted. Chest nontender. No accessory muscle usage noted or decreased air movement noted. Abdomen: Soft and nontender. Bowel sounds normal in all 4 quadrants. No distention noted. No organomegaly noted. No visible injury noted. Back: No costovertebral angle tenderness. Full range of motion noted. Skin: Skin warm and dry. Normal skin color. Normal skin turgor. No rashes/lesions/lacerations noted. Some bruising noted to the right periorbital and right forehead appears old. No other bruising noted. Extremities: Chronic bilateral lower extremity pitting edema. There is no calf tenderness. Patient has full range of motion of all extremities and they are nontender at this time. No obvious joint effusions or obvious signs of trauma noted. Neuro: Oriented X 3. No motor deficit. No sensory deficit. Reflexes normal. Patient has a normal steady gait.
[2024-08-25 09:00] VITALS: BP 160/76; PULSE 60; TEMP 36.3; O2SAT 95; BMI 42.4
--- OUTSIDE RECORDS SUMMARY | 2024-08-25 09:41 | XMS_ITS | Patient Health Record ---
Author Organization [facility] Address [address] [place] [address] Care Team Providers Care Commercial Sales Representative Name Role Phone Avelino (RETIRED) Jean-Paul ZAPATA Primary Care Provid er Unavailable Jean-Paul Lemus Unavailable [phone] Allergies Allergen (clinical drug ingredient) Drug/Non Drug Allergy documented on EMR Reaction Allergy Type Onset Date Status novacaine Unknown Drug Allergy Active seasonal (uncoded) Unknown Allergy A ctive Reason For Referral No Information Medications Medication [...] Once a day for 30 day(s) Active Immunizations Vaccine Route Administration Date Status Comme nts Influenza Unknown 07/10/2021 Refused Social History Alcohol Screen Question Answer Notes Did you [...] drinks (4 points) Points 6 Interpretation Positive Section Notes: Nonsmoker; 12 beers on , but none the rest of the week Nonsmoker; 12 beers every 2n d or Friday once or twice a month Problems Problem Type SNOMED Code ICD Code Onset Dates Problem Status W/U Status Risk Notes Problem Colon cancer screening (665634431) Colon cancer screening (V76.51) Active confirmed Problem Hypertension (76506518) Hypertension (401.9) Active confirmed Problem 321256457 Change in bowel habits (R19.4) Active confirmed Problem 31287173 Constipation, unspecified constipation type (K59.00) Active confirmed Plan Of Treatment No Information Insurance Providers Payer Name Payer Address Payer Phone Subscriber Number Group Number Insured Name Patient Relationship to Insured Coverage Start Date Coverage End Date MEDICARE OF [place] [address] [place] [address] [id number] HEIDI YOUNG Self - patient is the insured [employer] ATT[employer] CLAIMS [address] [place] [address] [id number] HEIDI YOUNG Self - patient is the insured Medical (General) History Medical History History ICD Code Hypertension Denies [...] 4V CABG and aortic valve replacement in 2012 as above 2012 Defibrillator Pacemaker
--- OUTSIDE RECORDS SUMMARY | 2024-08-25 09:41 | XMS_ITS ---
Author Organization [facility] Address [address] [place] [address] Care Team Providers Care Brass Finisher Name Role Phone Rc You MD Primary Care Provider Unavail able Yue Lobo Unavailable [phone] Scott Cline Unavailable [phone] Allergies Allergen (clinical drug ingredient) Drug/Non Drug Allergy documented on EMR Reaction Allergy Type Onset Date Status ramipril Altace headache Drug Allergy Active acetaminophen / oxycodone Percocet vomiting Drug Allergy Active tramadol Tramadol HCl neuropathy Drug Allergy Act javier atenolol Atenolol headache Drug Allergy Active Penicillin pain Drug Allergy Active Substance with 7-wetpfai-5-methylgl utaryl-coenzyme A reductase inhibitor mechanism of action [...] 10/30/2023 Encounters Encounter Location Date Provider Diagnosis [facility] [address] [address] 10/30/2023 Scott Cline Tinea unguium B35.1 ; Pain in right toe(s) M79.674 ; Pain in left toe(s) M79.675 ; Skin disease L98.9 ; Atherosclerosis of [place] arteries of extremities with intermittent claudication, bilateral [...] disease (ICD-10 - L98.9) 10/30/2023 Atherosclerosis of tanana arteries of extremities with intermittent claudication, bilateral legs (ICD-10 - I70.213) 10/30/2023 Other hammer toe(s) (acquired), left foot (ICD-10 - M20.42) 10/30/2023 Other hammer toe(s) (acquired), right foot (ICD-10 - M20.41) 10/30/2023 Xerosis cutis (ICD-10 - L85.3) Plan Of Treatment Next Appt Details Follow Up: 3 Months, Reason: Provider Name:Yue reis, 09/20/2024 02:45:00 PM, [address] [place], [address], Procedure Notes * Category Sub-Category Detail Notes [...] as necessary. Patient chooses, no pharmaceutical tx (93626) Keratoma Treatment Parring or Cutting o f Benign Hyperkeratotic Lesion(s) 75447 (2-4 Lesions) - The Benign hyperkeratotic lesions, as described above were pared, and/or cut utilizing a sterile #15 blade, tissue nippers, and/or dremel, Q8 Progress Notes * Tad VILLARDOB:1940 (83 yo M)Acc No.[id number]:10/30/2023 Progress Note Patient:?Tad Villar Provider:?Scott Cline DPM :1940???Age:83 Y???Sex:Male Sam e:10/30/2023 Address:[address] [place], [place] [id number] Pcp:Rc You MD Subjective: * Chief Complaints: [...] Children, none. ?Exercise: yes, exercise/ cardiac rehab [facility]. ?Marital status: single. 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 * Medications:?TakingAspirin A dult Low [...] toe(s) - M79.675?4.?Skin disease - L98.9?5.?Atherosclerosis of [place] arteries of extremities with intermittent claudication, bilateral [...] as necessary. Patient chooses, no pharmaceutical tx (31539).?Keratoma Treatment:?Parring or Cutting of Benign Hyperkeratotic Lesion(s)?88738 (2-4 Lesions) - The Benign hyperkeratotic lesions, as described above were pared, and/or cut utilizing a sterile #15 blade, tissue nippers, and/or dremel, Q8.? * Procedure Codes:?97224 DEBRI DE NAIL, 6 OR MORE, Modifiers: XS 95345 TRIM SKIN LESIONS, 2 TO 4, Modifiers: Q8 * Follow Up:?3 Months * Images: * Sign off status: Completed true * Provider:?Scott Cline DPM Date:? 024 Generated for Gallo moralez/Alvin/eTransmitting on:?08/25/2024 09:41 AM EDT History and Physical Notes * HPI (History [...]
--- OUTSIDE RECORDS SUMMARY | 2024-08-25 09:41 | XMS_ITS ---
Author Organization [facility] Address [address] [place] [address] Care Team Providers Care Street Contractor Name Role Phone Rc You MD Primary Care Provider Unavail able Yue Lobo Unavailable [phone] Allergies Allergen (clinical drug ingredient) Drug/Non Drug Allergy documented on EMR Reaction Allergy Type Onset Date Status ramipril Altace headache Drug Allergy Active acetaminophen / oxycodone Percocet vomiting Drug Allergy Active tramadol Tramadol HCl neuropathy Drug Allergy Act javier atenolol Atenolol headache Drug Allergy Active Penicillin pain Drug Allergy Active Substance with 3-mmwmnhx-2-methylgl utaryl-coenzyme A reductase inhibitor mechanism of action [...] W/U Status Risk Notes Problem Atherosclerosis of [place] artery of both lower extremities, with unspecified presence of clinical manifestation (I70.203) Active confirmed Q7(A), Q8(2B), Q9(1B,2C) Vital Signs Height 5 ft 10 in in 05/03/2024 Weight 260 lbs 05/03/2024 BMI 37.3 kg/m2 05/03/2024 Blood pressure systolic 121 mm Hg 05/03/20 24 Blood pressure diastolic 79 mm Hg 024 Procedures Procedure Date Ordered Date Performed Result Body Sit e 20505-SZIGWDH NAIL, 6 OR MORE 05/03/2024 N/A 94871-LDJJ SKIN LESIONS, OVER 4 05/03/2024 N/A Encounters Encounter Location Date Provider Diagnosis [facility] [place] [address] [place] [address] 05/03/2024 Yue Lobo Atherosclerosis of [place] artery of both lower extremities, with unspecified presence of clinical manifestation I70.203 ; Tinea unguium B35.1 ; Pain in right toe(s) M79.674 and Pain in left toe(s) M79.675 Assessments Encounter Date Diagnosis (ICD Code) Assessment Notes Treatment Notes Treatment Clinical Notes Section Notes 05/03/2024 Atherosclerosis of [place] artery of both lower extremities, with unspecified presence of clinical manifestation (ICD-10 - I70.203) Q7(A), Q8(2B), Q9(1B,2C) 05/03/2024 Tinea unguium (ICD-10 - B35.1) 05/03/2024 Pain in right toe(s) (ICD-10 - M79.674) 05/03/2024 Pain in left toe(s) (ICD-10 - M79.675) Plan Of Treatment Pending Test Test Name Order Date 59566-FCGWEFH NAIL, 6 OR MORE 05/03/2024 62045-SZQK SKIN LESIONS, OVER 4 05/03/20 24 Next Appt Details Follow Up: prn, Reason: Provider Name:Yue Graham smiley, 09/20/2024 02:45:00 PM, [address] [place], [address], Procedure Notes * Category Sub-Category Detail Notes [...] of a nail nipper and/or dremel-type grinder carbon plant, to a more viable healthy nail plate or bed tissue 6-10. Silver nitrate used for any petechial bleeding as necessary. Definitive antifungal treatment options have been reviewed and discussed with the patient. The patient chooses, no pharmaceutical tx - 22605 Keratoma Treatment Parring or Cutting o f Benign Hyperkeratotic Lesion(s) (-57) More than 4 Lesions - The Benign hyperkeratotic lesions, as described in exam, were pared, and/or cut utilizing a sterile 15 blade, tissue nippers, and/or dremel - 58793, Q8 Progress Notes * Tad VILLARDOB:1940 (84 yo M)Acc No.[id number]:05/03/2024 Progress Note Patient:?Tad VILLAR Provider:?Yue Lobo DPM :1940???Age:84 Y???Sex:Male Sam e:05/03/2024 Address:[address] [place], [place] [id number] Pcp:Rc You MD Subjective: * Chief Complaints: [...] ?Exercise: yes, exercise/ [place] [facility] [place] ?Marital status: single. 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 * Medications:?TakingAspirin A dult Low [...] 1.?Tinea unguium - B35.1 (Pr imary)???2.?Atherosclerosis of north[place] artery of both lower extremities, with unspecified presence of clinical manifestation - I70.203???Notes :Q7(A), Q8(2B), Q9(1B,2C)???3.?Pain in right toe(s) - M79.674???4.?Pain in left toe(s) - M79.675??? Plan: * Treatment: 2.?Atherosclerosis of north[place] artery of both lower extremities, with unspecified presence of clinical manifestation?Procedure: 71088-GUXS SKIN LESIONS, OVER 4 * Procedures:?Debride Nail [...] of a nail nipper and/or dremel-type grinder carbon plant, to a more viable healthy nail plate or bed tissue 6-10. Silver nitrate used for any petechial bleeding as necessary. Definitive antifungal treatment options have been reviewed and discussed with the patient. The patient chooses, no pharmaceutical tx - 05971.?Keratoma Treatment:?Parring or Cutting of Benign Hyperkeratotic Lesion(s)?(-57) More than 4 Lesions - The Benign hyperkeratotic lesions, as described in exam, were pared, and/or cut utilizing a sterile 15 blade, tissue nippers, and/or dremel - 41597, Q8.? * Procedure Codes:?56424 DEBRI DE NAIL, 6 OR MORE, Modifiers: XS 53278 TRIM SKIN LESIONS, OVER 4, Modifiers: XS , Q8 * Follow Up:?prn * Images: * Sign off status: Completed true * Provider:?Yue Lobo DPM Date:?07/03/2023 Generated for Gallo moralez/Alvin/Tyrese on:?08/25/2024 09:40 AM EDT History and Physical Notes * [...]
--- OUTSIDE RECORDS SUMMARY | 2024-08-25 09:41 | XMS_ITS ---
Author Organization [facility] Address [address] [place] [address] Care Team Providers Care Thermostat Maker Name Role Phone Rc You MD Primary Care Provider Unavail able Yue Lobo Unavailable [phone] Scott Cline Unavailable [phone] Allergies Allergen (clinical drug ingredient) Drug/Non Drug Allergy documented on EMR Reaction Allergy Type Onset Date Status ramipril Altace headache Drug Allergy Active acetaminophen / oxycodone Percocet vomiting Drug Allergy Active tramadol Tramadol HCl neuropathy Drug Allergy Act javier atenolol Atenolol headache Drug Allergy Active Penicillin pain Drug Allergy Active Substance with 6-pmhbhdq-0-methylgl utaryl-coenzyme A reductase inhibitor mechanism of action [...] 024 Encounters Encounter Location Date Provider Diagnosis [facility] [place] [address] [place] [address] 02/02/2024 Scott Cline Tinea unguium B35.1 ; Pain in right toe(s) M79.674 ; Pain in left toe(s) M79.675 ; Skin disease L98.9 ; Atherosclerosis of [place] arteries of extremities with intermittent claudication, bilateral [...] disease (ICD-10 - L98.9) 02/02/2024 Atherosclerosis of [place] arteries of extremities with intermittent claudication, bilateral legs (ICD-10 - I70.213) 02/02/2024 Other hammer toe(s) (acquired), left foot (ICD-10 - M20.42) 02/02/2024 Other hammer toe(s) (acquired), right foot (ICD-10 - M20.41) 02/02/2024 Xerosis cutis (ICD-10 - L85.3) Plan Of Treatment Next Appt Details Follow Up: 3 Months, Reason: Provider Name:Yue reis, 09/20/2024 02:45:00 PM, [address] [place], [address], Procedure Notes * Category Sub-Category Detail Notes [...] as necessary. Patient chooses, no pharmaceutical tx (00734) Keratoma Treatment Parring or Cutting o f Benign Hyperkeratotic Lesion(s) 26274 (2-4 Lesions) - The Benign hyperkeratotic lesions, as described above were pared, and/or cut utilizing a sterile #15 blade, tissue nippers, and/or dremel, Q8 Progress Notes * Tad VILLARDOB:1940 (83 yo M)Acc No.[id number]:02/02/2024 Progress Note Patient:?Tad Villar Provider:?Scott Cline DPM :1940???Age:83 Y???Sex:Male Sam e:02/02/2024 Address:[address] [place], [place] [address] Pcp:Rc You MD Subjective: * Chief Complaints: [...] Children, none. ?Exercise: yes, exercise/ cardiac rehab [facility] [place]. ?Marital status: single. 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 * Medications:?TakingAspirin A dult Low [...] toe(s) - M79.675?4.?Skin disease - L98.9?5.?Atherosclerosis of [place] arteries of extremities with intermittent claudication, bilateral [...] as necessary. Patient chooses, no pharmaceutical tx (45849).?Keratoma Treatment:?Parring or Cutting of Benign Hyperkeratotic Lesion(s)?27609 (2-4 Lesions) - The Benign hyperkeratotic lesions, as described above were pared, and/or cut utilizing a sterile #15 blade, tissue nippers, and/or dremel, Q8.? * Procedure Codes:?15279 DEBRI DE NAIL, 6 OR MORE, Modifiers: XS 14845 TRIM SKIN LESIONS, 2 TO 4, Modifiers: Q8 * Follow Up:?3 Months * Images: * Sign off status: Completed true * Provider:?Scott Cline DPM Date:? 024 Generated for Gallo moralez/Alvin/eTransmthomas on:?08/25/2024 09:41 AM EDT History and Physical [...]
--- OUTSIDE RECORDS SUMMARY | 2024-08-25 09:41 | XMS_ITS | Patient Health Record ---
Author Organization [facility] Address [address] [place] [address] Care Team Providers Care Service Member Name Role Phone Rc You MD Primary Care Provider Unavail able Yue Lobo Unavailable [phone] Scott Cline Unavailable [phone] Allergies Allergen (clinical drug ingredient) Drug/Non Drug Allergy documented on EMR Reaction Allergy Type Onset Date Status ramipril Altace headache Drug Allergy Active acetaminophen / oxycodone Percocet vomiting Drug Allergy Active tramadol Tramadol HCl neuropathy Drug Allergy Act javier atenolol Atenolol headache Drug Allergy Active Penicillin pain Drug Allergy Active Substance with 7-soldbow-7-methylgl utaryl-coenzyme A reductase inhibitor mechanism of action [...] Problem Acquired hammer toe of right foot (4631958551983626) Other hammer toe(s) (acquired), right foot (M20.41) Active confirmed Problem Acquired hammer toe of left foot (8007861172283232) Other hammer toe(s) (acquired), left foot (M20.42) Active confirmed Problem Intermittent claudication of bilateral lower limbs co-occurrent and due to atherosclerosis (36779594494632562 ) Atherosclerosis of [place] arteries of extremities with intermittent claudication, 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) Active confirmed Problem Atherosclerosis of [place] artery of both lower extremities, with unspecified presence of clinical manifestation (I70.203) Active confirmed Q7(A), Q8(2B), Q9(1B,2 C) Vital Signs Blood pressure diastolic 79 mm Hg 05/03/2024 Height 5 ft 10 in in 05/03/2024 Blood pressure systolic 121 mm Hg 05/03/2024 Weight 260 lbs 05/03/2024 BMI 37.3 kg/m2 05/03/2024 Procedures Procedure Date Ordered Date Performed Result Body Sit e 97572-VPQYPHH NAIL, 6 OR MORE 05/03/2024 N/A 99144-MHLY SKIN LESIONS, OVER 4 05/03/2024 N/A Encounters Encounter Location Date Provider Diagnosis [facility] [place] [address] [place] [address] 10/30/2023 Scott Cline Tinea unguium B35.1 ; Pain in right toe(s) M79.674 ; Pain in left toe(s) M79.675 ; Skin disease L98.9 ; Atherosclerosis of [place] arteries of extremities with intermittent claudication, bilateral legs I70.213 ; Other hammer toe(s) (acquired), left foot M20.42 ; Other hammer toe(s) (acquired), right foot M20.41 and Xerosis cutis L85.[address] [address] 02/02/2024 ScottPineda Tinea unguium B35.1 ; Pain in right toe(s) M79.674 ; Pain in left toe(s) M79.675 ; Skin disease L98.9 ; Atherosclerosis of [place] arteries of extremities with intermittent claudication, bilateral legs I70.213 ; Other hammer toe(s) (acquired), left foot M20.42 ; Other hammer toe(s) (acquired), right foot M20.41 and Xerosis cutis L85.[address] [address] 05/03/2024 Yue Lobo Atherosclerosis of [place] artery of both lower extremities, with unspecified [...] unguium (ICD-10 - B35.1) 05/03/2024 Atherosclerosis of [place] artery of both lower extremities, with unspecified [...] disease (ICD-10 - L98.9) 10/30/2023 Atherosclerosis of [place] arteries of extremities with intermittent claudication, bilateral legs (ICD-10 - I70.213) 02/02/2024 Atherosclerosis of [place] arteries of extremities with intermittent claudication, bilateral [...] Treatment Pending Test Test Name Order Date 61615-IWNNJAH NAIL, 6 OR MORE 05/03/2024 73935-DACM SKIN LESIONS, OVER 4 05/03/20 24 72582-HYVD SKIN LESIONS, 2 TO 4 08/07/19 21 86625-WKTP SKIN LESIONS, 2 TO 4 12/28/19 21 68790-GAEG SKIN LESIONS, 2 TO 4 05/02/20 21 49183-MCVK SKIN LESIONS, 2 TO 4 09/06/19 22 Next Appt Details Provider Name:Yue reis, 09/20/2024 02:45:00 PM, [address] [facility], [place], [address], Insurance Providers Payer Name Payer Address Payer Phone Subscriber Number Group Number Insured Name Patient Relationship to Insured Coverage Start Date Coverage End Date Medicare National Govt Svcs Inc [address] [place] [address] [id number] Tad Villar Self - patient is the insured [facility] [address] [place] [address] [id number] Tad Villar Self - patient is the insured Medical (General) History Medical History History ICD Code Hypertension Heart condition Hyperlipidemia Ulcerative colitis Aortic stenosis Coronary artery disease Atrioventricular block Microscopic Hematuria Pneumonia Congestive heart failure DVT, thrombophlebitis Surgical History Surgery Date(Month/Year) cardiac pacemeker bypass surgery Defibrillator valve surgery
== END 2024-08-25 09:36 | disposition home or self-care (01) ==
LOC: HO.HMCSH 09:06
PROVIDERS: PCP Internal Medicine; Visit Provider Physician Assistant Medical
DX: E78.5 Hyperlipidemia, unspecified (principal); I82.409 Acute embolism and thrombosis of unspecified deep veins of unspecified lower extremity; I50.32 Chronic diastolic (congestive) heart failure; R60.0 Localized edema; Z95.810 Presence of automatic (implantable) cardiac defibrillator; I25.10 Atherosclerotic heart disease of native coronary artery without angina pectoris; Z95.2 Presence of prosthetic heart valve; I10 Essential (primary) hypertension; E66.01 Morbid (severe) obesity due to excess calories; Z68.41 Body mass index [BMI] 40.0-44.9, adult; W00.9XXA Unspecified fall due to ice and snow, initial encounter

== ENCOUNTER → 2024-08-25 09:06 | Outpatient (BNVA) | payer MEDICARE, SELFPAY | PROVIDERS: PCP Internal Medicine; Visit Provider Physician Assistant Medical | DX: E78.5 Hyperlipidemia, unspecified (principal); I11.0 Hypertensive heart disease with heart failure; I50.32 Chronic diastolic (congestive) heart failure; R60.0 Localized edema; E66.01 Morbid (severe) obesity due to excess calories; Z68.41 Body mass index [BMI] 40.0-44.9, adult; Z86.718 Personal history of other venous thrombosis and embolism; Z95.810 Presence of automatic (implantable) cardiac defibrillator; Z95.2 Presence of prosthetic heart valve; Z71.3 Dietary counseling and surveillance; Z91.81 History of falling | CPT/HCPCS: 99212 ==

== ENCOUNTER 2024-08-26 08:02 | Outpatient (AMB) | payer MEDICARE, SELFPAY ==
--- OUTSIDE RECORDS SUMMARY | 2024-08-26 08:07 | XMS_ITS ---
Author Organization [facility] Address [address] [place] [address] Care Team Providers Care Slackman Name Role Phone Rc You MD Primary Care Provider Unavail able Yue Lobo Unavailable [phone] Allergies Allergen (clinical drug ingredient) Drug/Non Drug Allergy documented on EMR Reaction Allergy Type Onset Date Status ramipril Altace headache Drug Allergy Active acetaminophen / oxycodone Percocet vomiting Drug Allergy Active tramadol Tramadol HCl neuropathy Drug Allergy Act javier atenolol Atenolol headache Drug Allergy Active Penicillin pain Drug Allergy Active Substance with 5-cimgnof-5-methylgl utaryl-coenzyme A reductase inhibitor mechanism of action [...] W/U Status Risk Notes Problem Atherosclerosis of [place] artery of both lower extremities, with unspecified presence of clinical manifestation (I70.203) Active confirmed Q7(A), Q8(2B), Q9(1B,2C) Vital Signs Height 5 ft 10 in in 05/03/2024 Weight 260 lbs 05/03/2024 BMI 37.3 kg/m2 05/03/2024 Blood pressure systolic 121 mm Hg 05/03/20 24 Blood pressure diastolic 79 mm Hg 024 Procedures Procedure Date Ordered Date Performed Result Body Sit e 69005-USMYHMM NAIL, 6 OR MORE 05/03/2024 N/A 41646-VHQO SKIN LESIONS, OVER 4 05/03/2024 N/A Encounters Encounter Location Date Provider Diagnosis [facility] [place] [address] [place] [address] 05/03/2024 Yue Lobo Atherosclerosis of [place] artery of both lower extremities, with unspecified presence of clinical manifestation I70.203 ; Tinea unguium B35.1 ; Pain in right toe(s) M79.674 and Pain in left toe(s) M79.675 Assessments Encounter Date Diagnosis (ICD Code) Assessment Notes Treatment Notes Treatment Clinical Notes Section Notes 05/03/2024 Atherosclerosis of [place] artery of both lower extremities, with unspecified presence of clinical manifestation (ICD-10 - I70.203) Q7(A), Q8(2B), Q9(1B,2C) 05/03/2024 Tinea unguium (ICD-10 - B35.1) 05/03/2024 Pain in right toe(s) (ICD-10 - M79.674) 05/03/2024 Pain in left toe(s) (ICD-10 - M79.675) Plan Of Treatment Pending Test Test Name Order Date 97945-VJYXFIX NAIL, 6 OR MORE 05/03/2024 37445-GZEV SKIN LESIONS, OVER 4 05/03/20 24 Next Appt Details Follow Up: prn, Reason: Provider Name:Yue Graham smiley, 09/20/2024 02:45:00 PM, [address] [place], [address], Procedure Notes * Category Sub-Category Detail Notes [...] use of a nail nipper and/or dremel-type disk grinder, to a more viable healthy nail plate or bed tissue 6-10. Silver nitrate used for any petechial bleeding as necessary. Definitive antifungal treatment options have been reviewed and discussed with the patient. The patient chooses, no pharmaceutical tx - 93132 Keratoma Treatment Parring or Cutting o f Benign Hyperkeratotic Lesion(s) (-57) More than 4 Lesions - The Benign hyperkeratotic lesions, as described in exam, were pared, and/or cut utilizing a sterile 15 blade, tissue nippers, and/or dremel - 43807, Q8 Progress Notes * Tad VILLARDOB:1940 (84 yo M)Acc No.[id number]:05/03/2024 Progress Note Patient:?Tad VILLAR Provider:?Yue Lobo DPM :1940???Age:84 Y???Sex:Male Sam e:05/03/2024 Address:[address] [place], [place] [address] Pcp:Rc You MD Subjective: * Chief Complaints: [...] no, none. ?Exercise: yes, exercise/ cardiac rehab [facility] [place]. ?Marital status: single. 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 * Medications:?TakingAspirin A dult Low [...] 1.?Tinea unguium - B35.1 (Pr imary)???2.?Atherosclerosis of [place] artery of both lower extremities, with unspecified presence of clinical manifestation - I70.203???Notes :Q7(A), Q8(2B), Q9(1B,2C)???3.?Pain in right toe(s) - M79.674???4.?Pain in left toe(s) - M79.675??? Plan: * Treatment: 2.?Atherosclerosis of [place] artery of both lower extremities, with unspecified presence of clinical manifestation?Procedure: 45262-DHAU SKIN LESIONS, OVER 4 * Procedures:?Debride Nail [...] use of a nail nipper and/or dremel-type disk grinder, to a more viable healthy nail plate or bed tissue 6-10. Silver nitrate used for any petechial bleeding as necessary. Definitive antifungal treatment options have been reviewed and discussed with the patient. The patient chooses, no pharmaceutical tx - 99069.?Keratoma Treatment:?Parring or Cutting of Benign Hyperkeratotic Lesion(s)?(-57) More than 4 Lesions - The Benign hyperkeratotic lesions, as described in exam, were pared, and/or cut utilizing a sterile 15 blade, tissue nippers, and/or dremel - 22597, Q8.? * Procedure Codes:?23541 DEBRI DE NAIL, 6 OR MORE, Modifiers: XS 86711 TRIM SKIN LESIONS, OVER 4, Modifiers: XS , Q8 * Follow Up:?prn * Images: * Sign off status: Completed true * Provider:?Yue Lobo DPM Date:?07/03/2023 Generated for Gallo moralez/Alvin/Tyrese on:?08/26/2024 08:07 AM EDT History and Physical Notes * [...]
--- OUTSIDE RECORDS SUMMARY | 2024-08-26 08:07 | XMS_ITS | Patient Health Record ---
Author Organization [facility] Address [address] [place] [address] Care Team Providers Care Molding Machine Tender Name Role Phone Rc You MD Primary Care Provider Unavail able Yue Lobo Unavailable [phone] Scott Cline Unavailable [phone] Allergies Allergen (clinical drug ingredient) Drug/Non Drug Allergy documented on EMR Reaction Allergy Type Onset Date Status ramipril Altace headache Drug Allergy Active acetaminophen / oxycodone Percocet vomiting Drug Allergy Active tramadol Tramadol HCl neuropathy Drug Allergy Act javier atenolol Atenolol headache Drug Allergy Active Penicillin pain Drug Allergy Active Substance with 6-kuinjzb-2-methylgl utaryl-coenzyme A reductase inhibitor mechanism of action [...] Problem Acquired hammer toe of right foot (5343178596154116) Other hammer toe(s) (acquired), right foot (M20.41) Active confirmed Problem Acquired hammer toe of left foot (9563472208954123) Other hammer toe(s) (acquired), left foot (M20.42) Active confirmed Problem Intermittent claudication of bilateral lower limbs co-occurrent and due to atherosclerosis (69398131447008524 ) Atherosclerosis of [place] arteries of extremities with intermittent claudication, 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) Active confirmed Problem Atherosclerosis of [place] artery of both lower extremities, with unspecified presence of clinical manifestation (I70.203) Active confirmed Q7(A), Q8(2B), Q9(1B,2 C) Vital Signs Blood pressure diastolic 79 mm Hg 05/03/2024 Height 5 ft 10 in in 05/03/2024 Blood pressure systolic 121 mm Hg 05/03/2024 Weight 260 lbs 05/03/2024 BMI 37.3 kg/m2 05/03/2024 Procedures Procedure Date Ordered Date Performed Result Body Sit e 49498-DZDBXBB NAIL, 6 OR MORE 05/03/2024 N/A 44235-PGER SKIN LESIONS, OVER 4 05/03/2024 N/A Encounters Encounter Location Date Provider Diagnosis [facility] [place] [address] [place] [address] 10/30/2023 Scott Cline Tinea unguium B35.1 ; Pain in right toe(s) M79.674 ; Pain in left toe(s) M79.675 ; Skin disease L98.9 ; Atherosclerosis of [place] arteries of extremities with intermittent claudication, bilateral legs I70.213 ; Other hammer toe(s) (acquired), left foot M20.42 ; Other hammer toe(s) (acquired), right foot M20.41 and Xerosis cutis L85.[address] [address] 02/02/2024 ScottPineda Tinea unguium B35.1 ; Pain in right toe(s) M79.674 ; Pain in left toe(s) M79.675 ; Skin disease L98.9 ; Atherosclerosis of [place] arteries of extremities with intermittent claudication, bilateral legs I70.213 ; Other hammer toe(s) (acquired), left foot M20.42 ; Other hammer toe(s) (acquired), right foot M20.41 and Xerosis cutis L85.[address] [address] 05/03/2024 Yue Lobo Atherosclerosis of [place] artery of both lower extremities, with unspecified [...] unguium (ICD-10 - B35.1) 05/03/2024 Atherosclerosis of [place] artery of both lower extremities, with unspecified [...] disease (ICD-10 - L98.9) 10/30/2023 Atherosclerosis of [place] arteries of extremities with intermittent claudication, bilateral legs (ICD-10 - I70.213) 02/02/2024 Atherosclerosis of [place] arteries of extremities with intermittent claudication, bilateral [...] Treatment Pending Test Test Name Order Date 28795-KEUCSES NAIL, 6 OR MORE 05/03/2024 34517-GWDS SKIN LESIONS, OVER 4 05/03/20 24 08637-OGGM SKIN LESIONS, 2 TO 4 08/07/19 21 49881-NKXC SKIN LESIONS, 2 TO 4 12/28/19 21 07936-UUKT SKIN LESIONS, 2 TO 4 05/02/20 21 31550-CFDZ SKIN LESIONS, 2 TO 4 09/06/19 22 Next Appt Details Provider Name:Yue reis, 09/20/2024 02:45:00 PM, [address] [facility], [place], [address], Insurance Providers Payer Name Payer Address Payer Phone Subscriber Number Group Number Insured Name Patient Relationship to Insured Coverage Start Date Coverage End Date Medicare National Govt Svcs Inc [address] [place] [address] [id number] Tad Villar Self - patient is the insured [facility] [address] [place] [address] [id number] Tad Villar Self - patient is the insured Medical (General) History Medical History History ICD Code Hypertension Heart condition Hyperlipidemia Ulcerative colitis Aortic stenosis Coronary artery disease Atrioventricular block Microscopic Hematuria Pneumonia Congestive heart failure DVT, thrombophlebitis Surgical History Surgery Date(Month/Year) cardiac pacemeker bypass surgery Defibrillator valve surgery
--- OUTSIDE RECORDS SUMMARY | 2024-08-26 08:07 | XMS_ITS ---
Author Organization [facility] Address [address] [place] [address] Care Team Providers Care Correctional Substance Abuse Counselor Name Role Phone Rc You MD Primary Care Provider Unavail able Yue Lobo Unavailable [phone] Scott Cline Unavailable [phone] Allergies Allergen (clinical drug ingredient) Drug/Non Drug Allergy documented on EMR Reaction Allergy Type Onset Date Status ramipril Altace headache Drug Allergy Active acetaminophen / oxycodone Percocet vomiting Drug Allergy Active tramadol Tramadol HCl neuropathy Drug Allergy Act javier atenolol Atenolol headache Drug Allergy Active Penicillin pain Drug Allergy Active Substance with 8-mcdsamw-1-methylgl utaryl-coenzyme A reductase inhibitor mechanism of action [...] 024 Encounters Encounter Location Date Provider Diagnosis [facility] [place] [address] [place] [address] 02/02/2024 Scott Cline Tinea unguium B35.1 ; Pain in right toe(s) M79.674 ; Pain in left toe(s) M79.675 ; Skin disease L98.9 ; Atherosclerosis of [place] arteries of extremities with intermittent claudication, bilateral [...] disease (ICD-10 - L98.9) 02/02/2024 Atherosclerosis of [place] arteries of extremities with intermittent claudication, bilateral legs (ICD-10 - I70.213) 02/02/2024 Other hammer toe(s) (acquired), left foot (ICD-10 - M20.42) 02/02/2024 Other hammer toe(s) (acquired), right foot (ICD-10 - M20.41) 02/02/2024 Xerosis cutis (ICD-10 - L85.3) Plan Of Treatment Next Appt Details Follow Up: 3 Months, Reason: Provider Name:Yue reis, 09/20/2024 02:45:00 PM, [address] [place], [address], Procedure Notes * Category Sub-Category Detail Notes [...] as necessary. Patient chooses, no pharmaceutical tx (93019) Keratoma Treatment Parring or Cutting o f Benign Hyperkeratotic Lesion(s) 29136 (2-4 Lesions) - The Benign hyperkeratotic lesions, as described above were pared, and/or cut utilizing a sterile #15 blade, tissue nippers, and/or dremel, Q8 Progress Notes * Tad VILLARDOB:1940 (83 yo M)Acc No.[id number]:02/02/2024 Progress Note Patient:?Tad Villar Provider:?Scott Cline DPM :1940???Age:83 Y???Sex:Male Sam e:02/02/2024 Address:[address] [place], [place] [id number] Pcp:Rc You MD Subjective: * Chief Complaints: [...] [facility] [place]. ?Marital status: single. 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 * Medications:?TakingAspirin A dult Low [...] toe(s) - M79.675?4.?Skin disease - L98.9?5.?Atherosclerosis of [place] arteries of extremities with intermittent claudication, bilateral [...] as necessary. Patient chooses, no pharmaceutical tx (32204).?Keratoma Treatment:?Parring or Cutting of Benign Hyperkeratotic Lesion(s)?86173 (2-4 Lesions) - The Benign hyperkeratotic lesions, as described above were pared, and/or cut utilizing a sterile #15 blade, tissue nippers, and/or dremel, Q8.? * Procedure Codes:?43391 DEBRI DE NAIL, 6 OR MORE, Modifiers: XS 26232 TRIM SKIN LESIONS, 2 TO 4, Modifiers: Q8 * Follow Up:?3 Months * Images: * Sign off status: Completed true * Provider:?Scott Cline DPM Date:? 024 Generated for Gallo moralez/Alvin/eTelyssa on:?08/26/2024 08:07 AM EDT History and Physical [...]
--- OUTSIDE RECORDS SUMMARY | 2024-08-26 08:07 | XMS_ITS | Patient Health Record ---
Author Organization [facility] Address [address] [place] [address] Care Team Providers Care Sketch Artist Name Role Phone Avelino (RETIRED) Jean-Paul ZAPATA Primary Care Provid er Unavailable Jean-Paul Lemus Unavailable [phone] Allergies Allergen (clinical drug ingredient) Drug/Non Drug [...] Status Risk Notes Problem Colon cancer screening (174682103) Colon cancer screening (V76.51) Active confirmed Problem Hypertension (98907859) Hypertension (401.9) Active confirmed Problem 760140836 Change in bowel habits (R19.4) Active confirmed Problem 35476659 Constipation, unspecified constipation type (K59.00) Active confirmed Plan Of Treatment No Information Insurance Providers Payer Name Payer Address Payer Phone Subscriber Number Group Number Insured Name Patient Relationship to Insured Coverage Start Date Coverage End Date MEDICARE OF [place] [address] [place] [address] [phone] [id number] HEIDI YOUNG Self - patient is the insured MEDEX ATTN CLAIMS [address] [place] [address] [id number] HEIDI YOUNG Self - patient is the insured Medical (General) History Medical History History ICD Code Hypertension Denies [place],DM,CVA,Lung disease,renal dise ase Colonoscopies in [address] 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 Dodson at [facility], pacemaker and defibrillator--sees Dr. Jade DVT in right leg in 2003 Surgical History Surgery Date(Month/Year) 4V CABG and aortic valve replacement in 2012 as above 2012 Defibrillator Pacemaker
--- OUTSIDE RECORDS SUMMARY | 2024-08-26 08:08 | XMS_ITS ---
Author Organization [facility] Address [address] [place] [address] Care Team Providers Care Tool And Machine Maintainer Name Role Phone Rc You MD Primary Care Provider Unavail able Yue Lobo Unavailable [phone] Scott Cline Unavailable [phone] Allergies Allergen (clinical drug ingredient) Drug/Non Drug Allergy documented on EMR Reaction Allergy Type Onset Date Status ramipril Altace headache Drug Allergy Active acetaminophen / oxycodone Percocet vomiting Drug Allergy Active tramadol Tramadol HCl neuropathy Drug Allergy Act javier atenolol Atenolol headache Drug Allergy Active Penicillin pain Drug Allergy Active Substance with 9-fifwdrx-8-methylgl utaryl-coenzyme A reductase inhibitor mechanism of action [...] 10/30/2023 Encounters Encounter Location Date Provider Diagnosis [facility] [address] [address] 10/30/2023 Scott Cline Tinea unguium B35.1 ; Pain in right toe(s) M79.674 ; Pain in left toe(s) M79.675 ; Skin disease L98.9 ; Atherosclerosis of [place] arteries of extremities with intermittent claudication, bilateral [...] disease (ICD-10 - L98.9) 10/30/2023 Atherosclerosis of [place] arteries of extremities with intermittent claudication, bilateral legs (ICD-10 - I70.213) 10/30/2023 Other hammer toe(s) (acquired), left foot (ICD-10 - M20.42) 10/30/2023 Other hammer toe(s) (acquired), right foot (ICD-10 - M20.41) 10/30/2023 Xerosis cutis (ICD-10 - L85.3) Plan Of Treatment Next Appt Details Follow Up: 3 Months, Reason: Provider Name:Yue reis, 09/20/2024 02:45:00 PM, [address] [place], [address], Procedure Notes * Category Sub-Category Detail Notes [...] as necessary. Patient chooses, no pharmaceutical tx (48318) Keratoma Treatment Parring or Cutting o f Benign Hyperkeratotic Lesion(s) 95590 (2-4 Lesions) - The Benign hyperkeratotic lesions, as described above were pared, and/or cut utilizing a sterile #15 blade, tissue nippers, and/or dremel, Q8 Progress Notes * Tad VILLARDOB:1940 (83 yo M)Acc No.[id number]:10/30/2023 Progress Note Patient:?Tad Villar Provider:?Scott Cline DPM :1940???Age:83 Y???Sex:Male Sam e:10/30/2023 Address:[address] [place], [place] [address] Pcp:Rc You MD Subjective: * Chief Complaints: [facility] [place] ?Marital status: single. 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 * Medications:?TakingAspirin A dult Low [...] toe(s) - M79.675?4.?Skin disease - L98.9?5.?Atherosclerosis of [place] arteries of extremities with intermittent claudication, bilateral [...] as necessary. Patient chooses, no pharmaceutical tx (08908).?Keratoma Treatment:?Parring or Cutting of Benign Hyperkeratotic Lesion(s)?13655 (2-4 Lesions) - The Benign hyperkeratotic lesions, as described above were pared, and/or cut utilizing a sterile #15 blade, tissue nippers, and/or dremel, Q8.? * Procedure Codes:?19694 DEBRI DE NAIL, 6 OR MORE, Modifiers: XS 96313 TRIM SKIN LESIONS, 2 TO 4, Modifiers: Q8 * Follow Up:?3 Months * Images: * Sign off status: Completed true * Provider:?Scott Cline DPM Date:? 024 Generated for Gallo moralez/Alvin/eTransmitting on:?08/26/2024 08:07 AM EDT History and Physical [...]
--- NOTE | 2024-08-26 08:33 | MHC.OFFVISCO ---
Intake Intake Visit Reasons: Anticoagulation Allergies Penicillins [PENICILLINS] Allergy (Severe, Verified 08/26/24 08:20) HIVES Medication List - Last Reconciled 08/26/24 by Janet Deng RN acetaminophen ER 650 mg PO ONCE atorvastatin 40 mg PO DAILY furosemide (Lasix) 40 mg PO DAILY lisinopril 40 mg PO DAILY metoprolol succinate ER 50 mg PO DAILY multivit,calc,ypr-QQ-P9-lycop 240 mcg-30 mcg- 300 mcg (One-A-Day Men's Complete) 1 tab PO DAILY warfarin 5 mg See Protocol PO DAILY Nursing Note INR: 2.4 in therapeutic range 2-3 Medications and supplements reviewed No changes in health, diet, medications, or supplements, Denies any signs and symptoms of bleeding or bruising or clotting. Bleeding, bruising, clotting discussed Nutritional guidance given Dose: 2.5mg daily F/U INR: 2 weeks Patient verbalizes understanding of instructions given Anti-Coag Initial Assessment Social Hx Patient Tobacco Use Status: Former Tobacco user alcohol intake: current Alcohol intake frequency: a few times a month Coding Level of Care Code Est Patient Level 1 Diagnoses Current use of anticoagulant therapy Z79.01 Results AMB INR Fingerstick AMB INR Fingerstick 2.4 Last Edit by Janet Deng, GOVIND on 08/26/24 08:30 interface delay Assessment & Plan Assessment & Plan (1) Current use of anticoagulant therapy: Code(s): Z79.01 - group home (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
[2024-08-26 08:34] LABS: Prothrombin Time Whole Bld POC 29.2 sec (11.1-13.5); ~PT, ~INR - Anti Coag Clinic 2.4 (0.9-1.1)
== END 2024-08-26 08:34 | disposition home or self-care (01) ==
LOC: HO.ACS 08:02
PROVIDERS: PCP Internal Medicine; Visit Provider Internal Medicine
DX: Z79.01 Long term (current) use of anticoagulants (principal)

== ENCOUNTER 2024-08-26 08:02 | Outpatient (REF) | payer MEDICARE, SELFPAY ==
[2024-08-26 08:55] LABS: MANUAL DIFF FLAG NO
[2024-08-26 09:39] LABS: Basophils Percent Auto 0.4 % (0-2); Eosinophils Absolute Auto 0.1 X10*3/uL (0.0-0.4); Eosinophils Percent Auto 1.4 % (0-4); Hematocrit 41.1 % (42.0-52.0); Hemoglobin 13.8 g/dl (14.0-18.0); Imm Gran Abs Auto 0.01 X10*3/uL (0.00-0.03); Imm Gran Pct Auto 0.2 % (0.0-0.4); Lymphocytes Absolute Auto 1.5 X10*3/uL (1.2-4.9); Mean Corpuscular HGB Conc 33.6 g/dl (31.0-36.0); Mean Corpuscular Hemoglobin 31.7 pg (27.0-33.0); Mean Corpuscular Volume 94.3 fL (80.0-98.0); Mean Platelet Volume 9.7 fL (9.4-12.4); Monocytes Absolute Auto 0.4 X10*3/uL (0.1-1.2); Monocytes Percent Auto 6.3 % (2-11); Neutrophils Absolute Auto 3.6 x10*3/uL (2.0-8.3); Neutrophils Percent Auto 64.7 % (45-73); Platelet Count 161 X10*3/uL (160-400); Red Blood Count 4.36 X10*6/uL (4.60-5.80); Red Cell Distribution Width 13.7 % (11.0-16.0); White Blood Count 5.6 X10*3/uL (4.8-10.8)
[2024-08-26 09:47] LABS: Estimated Average Glucose 111 mg/dL; Hemoglobin A1C 128.9703 umol/L; Hemoglobin A1c % 5.5 % (<6.0); Total Hemoglobin (HGBA1C) 3569.4978 umol/L
[2024-08-26 10:02] LABS: B Type Natriuretic Peptide 95 pg/mL (<100)
[2024-08-26 10:22] LABS: Alanine Aminotransferase 17 U/L (0-40); Albumin Level 3.9 g/dL (3.5-5.0); Alkaline Phosphatase 81 U/L (39-117); Anion Gap 13 (12-20); Aspartate Amino Transferase 33 U/L (5-37); Bilirubin Direct 0.3 mg/dL (0.0-0.5); Bilirubin Total 1.1 mg/dL (0.0-1.0); Blood Urea Nitrogen 16 mg/dL (9-16); Carbon Dioxide 29 mmol/L (22-29); Chloride 104 mmol/L (96-108); Cholesterol 144 mg/dL (<200); Estimated Glomerular Filt Rate > 60; Glucose Fasting 103 mg/dL (60-99); HDL Cholesterol 40 mg/dL (>40); LDL Cholesterol Calculated 85 mg/dL (<100); Magnesium 2.1 mg/dL (1.6-2.6); Potassium 4.1 mmol/L (3.3-5.1); Sodium 142 mmol/L (135-145); Total Protein 8.4 g/dL (6.5-8.0); Triglycerides 98 mg/dL (<150)
[2024-08-26 10:24] LABS: Vitamin D 25-OH Total 36.2 ng/mL (>30)
[2024-08-26 10:28] LABS: PSA,Total (Free>4and<10) 1.66 ng/mL (0.00-4.00)
[2024-08-26 10:37] LABS: Folate 16.5 ng/mL (> or = 4.0); Vitamin B12 553 pg/mL (200-900)
== END 2024-08-26 08:03 | disposition home or self-care (01) ==
LOC: HO.LAB 08:02
PROVIDERS: Physician Assistant Medical; PCP Internal Medicine; Visit Provider Internal Medicine
DX: I82.409 Acute embolism and thrombosis of unspecified deep veins of unspecified lower extremity (principal); I10 Essential (primary) hypertension; Z79.01 Long term (current) use of anticoagulants; E78.5 Hyperlipidemia, unspecified; K51.90 Ulcerative colitis, unspecified, without complications; I50.32 Chronic diastolic (congestive) heart failure; R53.83 Other fatigue; I25.10 Atherosclerotic heart disease of native coronary artery without angina pectoris; R60.0 Localized edema; I44.30 Unspecified atrioventricular block; I35.0 Nonrheumatic aortic (valve) stenosis; Z12.5 Encounter for screening for malignant neoplasm of prostate; Z13.1 Encounter for screening for diabetes mellitus
CPT/HCPCS: 36415; 80053; 80061; 80076; 82248; 82306; 82607; 82746; 83036; 83735; 83880; 84153; 84443; 85025; 85610; 99211

== ENCOUNTER 2024-08-28 09:04 | Outpatient (AMB) | payer MEDICARE, SELFPAY ==
--- OUTSIDE RECORDS SUMMARY | 2024-08-28 09:06 | XMS_ITS ---
Author Organization [facility] Address [address] [place] [address] Care Team Providers Care Mechanic'S Assistant Name Role Phone Rc You MD Primary Care Provider Unavail able Yue Lobo Unavailable [phone] Scott Cline Unavailable [phone] Allergies Allergen (clinical drug ingredient) Drug/Non Drug Allergy documented on EMR Reaction Allergy Type Onset Date Status ramipril Altace headache Drug Allergy Active acetaminophen / oxycodone Percocet vomiting Drug Allergy Active tramadol Tramadol HCl neuropathy Drug Allergy Act javier atenolol Atenolol headache Drug Allergy Active Penicillin pain Drug Allergy Active Substance with 7-vvjjelz-3-methylgl utaryl-coenzyme A reductase inhibitor mechanism of action [...] 024 Encounters Encounter Location Date Provider Diagnosis [facility] [place] [address] [place] [address] 02/02/2024 Scott Cline Tinea unguium B35.1 ; Pain in right toe(s) M79.674 ; Pain in left toe(s) M79.675 ; Skin disease L98.9 ; Atherosclerosis of [place] arteries of extremities with intermittent claudication, bilateral [...] disease (ICD-10 - L98.9) 02/02/2024 Atherosclerosis of [place] arteries of extremities with intermittent claudication, bilateral legs (ICD-10 - I70.213) 02/02/2024 Other hammer toe(s) (acquired), left foot (ICD-10 - M20.42) 02/02/2024 Other hammer toe(s) (acquired), right foot (ICD-10 - M20.41) 02/02/2024 Xerosis cutis (ICD-10 - L85.3) Plan Of Treatment Next Appt Details Follow Up: 3 Months, Reason: Provider Name:Yue reis, 09/20/2024 02:45:00 PM, [address] [place], [address], Procedure Notes * Category Sub-Category Detail Notes [...] as necessary. Patient chooses, no pharmaceutical tx (60658) Keratoma Treatment Parring or Cutting o f Benign Hyperkeratotic Lesion(s) 17028 (2-4 Lesions) - The Benign hyperkeratotic lesions, as described above were pared, and/or cut utilizing a sterile #15 blade, tissue nippers, and/or dremel, Q8 Progress Notes * Tad VILLARDOB:1940 (83 yo M)Acc No.[id number]:02/02/2024 Progress Note Patient:?Tad Villar Provider:?Scott Cline DPM :1940???Age:83 Y???Sex:Male Sam e:02/02/2024 Address:[address] [place], [place] [address] Pcp:Rc You MD Subjective: * Chief Complaints: [...] Children, none. ?Exercise: yes, exercise/ cardiac rehab [place]. ?Marital status: single. 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 * Medications:?TakingAspirin A dult Low [...] toe(s) - M79.675?4.?Skin disease - L98.9?5.?Atherosclerosis of [place] arteries of extremities with intermittent claudication, bilateral [...] as necessary. Patient chooses, no pharmaceutical tx (52121).?Keratoma Treatment:?Parring or Cutting of Benign Hyperkeratotic Lesion(s)?94922 (2-4 Lesions) - The Benign hyperkeratotic lesions, as described above were pared, and/or cut utilizing a sterile #15 blade, tissue nippers, and/or dremel, Q8.? * Procedure Codes:?64673 DEBRI DE NAIL, 6 OR MORE, Modifiers: XS 48713 TRIM SKIN LESIONS, 2 TO 4, Modifiers: Q8 * Follow Up:?3 Months * Images: * Sign off status: Completed true * Provider:?Scott Cline DPM Date:? 024 Generated for Gallo moralez/Alvin/eTelyssa on:?08/28/2024 09:06 AM EDT History and Physical Notes * [...]
--- OUTSIDE RECORDS SUMMARY | 2024-08-28 09:06 | XMS_ITS ---
Author Organization [facility] Address [address] [place] [address] Care Team Providers Care Console Attendant Name Role Phone Rc You MD Primary Care Provider Unavail able Yue Lobo Unavailable [phone] Scott Cline Unavailable [phone] Allergies Allergen (clinical drug ingredient) Drug/Non Drug Allergy documented on EMR Reaction Allergy Type Onset Date Status ramipril Altace headache Drug Allergy Active acetaminophen / oxycodone Percocet vomiting Drug Allergy Active tramadol Tramadol HCl neuropathy Drug Allergy Act javier atenolol Atenolol headache Drug Allergy Active Penicillin pain Drug Allergy Active Substance with 9-kogdmkr-5-methylgl utaryl-coenzyme A reductase inhibitor mechanism of action [...] 10/30/2023 Encounters Encounter Location Date Provider Diagnosis [facility] [address] [address] 10/30/2023 Scott Cline Tinea unguium B35.1 ; Pain in right toe(s) M79.674 ; Pain in left toe(s) M79.675 ; Skin disease L98.9 ; Atherosclerosis of [place] arteries of extremities with intermittent claudication, bilateral [...] disease (ICD-10 - L98.9) 10/30/2023 Atherosclerosis of [place] arteries of extremities with intermittent claudication, bilateral legs (ICD-10 - I70.213) 10/30/2023 Other hammer toe(s) (acquired), left foot (ICD-10 - M20.42) 10/30/2023 Other hammer toe(s) (acquired), right foot (ICD-10 - M20.41) 10/30/2023 Xerosis cutis (ICD-10 - L85.3) Plan Of Treatment Next Appt Details Follow Up: 3 Months, Reason: Provider Name:Yue reis, 09/20/2024 02:45:00 PM, [address] [place], [address], Procedure Notes * Category Sub-Category Detail Notes [...] as necessary. Patient chooses, no pharmaceutical tx (38929) Keratoma Treatment Parring or Cutting o f Benign Hyperkeratotic Lesion(s) 93808 (2-4 Lesions) - The Benign hyperkeratotic lesions, as described above were pared, and/or cut utilizing a sterile #15 blade, tissue nippers, and/or dremel, Q8 Progress Notes * Tad VILLARDOB:1940 (83 yo M)Acc No.[id number]:10/30/2023 Progress Note Patient:?Tad Villar Provider:?Scott Cline DPM :1940???Age:83 Y???Sex:Male Sam e:10/30/2023 Address:[address] [place], [place] [address] Pcp:Rc You MD Subjective: * Chief Complaints: [...] Children, none. ?Exercise: yes, exercise/ cardiac rehab [facility]. ?Marital status: single. 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 * Medications:?TakingAspirin A dult Low [...] toe(s) - M79.675?4.?Skin disease - L98.9?5.?Atherosclerosis of [place] arteries of extremities with intermittent claudication, bilateral [...] as necessary. Patient chooses, no pharmaceutical tx (98214).?Keratoma Treatment:?Parring or Cutting of Benign Hyperkeratotic Lesion(s)?92766 (2-4 Lesions) - The Benign hyperkeratotic lesions, as described above were pared, and/or cut utilizing a sterile #15 blade, tissue nippers, and/or dremel, Q8.? * Procedure Codes:?66778 DEBRI DE NAIL, 6 OR MORE, Modifiers: XS 83136 TRIM SKIN LESIONS, 2 TO 4, Modifiers: Q8 * Follow Up:?3 Months * Images: * Sign off status: Completed true * Provider:?Scott Cline DPM Date:? 024 Generated for Gallo moralez/Alvin/eTransmitting on:?08/28/2024 09:06 AM EDT History and Physical [...]
--- OUTSIDE RECORDS SUMMARY | 2024-08-28 09:06 | XMS_ITS | Patient Health Record ---
Author Organization [facility] Address [address] [place] [address] Care Team Providers Care Tar Kettle Runner Name Role Phone Rc You MD Primary Care Provider Unavail able Yue Lobo Unavailable [phone] Scott Cline Unavailable [phone] Allergies Allergen (clinical drug ingredient) Drug/Non Drug Allergy documented on EMR Reaction Allergy Type Onset Date Status ramipril Altace headache Drug Allergy Active acetaminophen / oxycodone Percocet vomiting Drug Allergy Active tramadol Tramadol HCl neuropathy Drug Allergy Act javier atenolol Atenolol headache Drug Allergy Active Penicillin pain Drug Allergy Active Substance with 4-jphsdae-2-methylgl utaryl-coenzyme A reductase inhibitor mechanism of action [...] Problem Acquired hammer toe of right foot (4838918076118561) Other hammer toe(s) (acquired), right foot (M20.41) Active confirmed Problem Acquired hammer toe of left foot (2084090608540144) Other hammer toe(s) (acquired), left foot (M20.42) Active confirmed Problem Intermittent claudication of bilateral lower limbs co-occurrent and due to atherosclerosis (12887397856890557 ) Atherosclerosis of [place] arteries of extremities with intermittent claudication, 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) Active confirmed Problem Atherosclerosis of [place] artery of both lower extremities, with unspecified presence of clinical manifestation (I70.203) Active confirmed Q7(A), Q8(2B), Q9(1B,2 C) Vital Signs Blood pressure diastolic 79 mm Hg 05/03/2024 Height 5 ft 10 in in 05/03/2024 Blood pressure systolic 121 mm Hg 05/03/2024 Weight 260 lbs 05/03/2024 BMI 37.3 kg/m2 05/03/2024 Procedures Procedure Date Ordered Date Performed Result Body Sit e 94141-QPNTQTV NAIL, 6 OR MORE 05/03/2024 N/A 72566-AEEL SKIN LESIONS, OVER 4 05/03/2024 N/A Encounters Encounter Location Date Provider Diagnosis [facility] [place] [address] [place] [address] 10/30/2023 Scott Cline Tinea unguium B35.1 ; Pain in right toe(s) M79.674 ; Pain in left toe(s) M79.675 ; Skin disease L98.9 ; Atherosclerosis of [place] arteries of extremities with intermittent claudication, bilateral legs I70.213 ; Other hammer toe(s) (acquired), left foot M20.42 ; Other hammer toe(s) (acquired), right foot M20.41 and Xerosis cutis L85.[address] [address] 02/02/2024 ScottPineda Tinea unguium B35.1 ; Pain in right toe(s) M79.674 ; Pain in left toe(s) M79.675 ; Skin disease L98.9 ; Atherosclerosis of [place] arteries of extremities with intermittent claudication, bilateral legs I70.213 ; Other hammer toe(s) (acquired), left foot M20.42 ; Other hammer toe(s) (acquired), right foot M20.41 and Xerosis cutis L85.[address] [address] 05/03/2024 Yue Lobo Atherosclerosis of [place] artery of both lower extremities, with unspecified [...] unguium (ICD-10 - B35.1) 05/03/2024 Atherosclerosis of [place] artery of both lower extremities, with unspecified [...] disease (ICD-10 - L98.9) 10/30/2023 Atherosclerosis of [place] arteries of extremities with intermittent claudication, bilateral legs (ICD-10 - I70.213) 02/02/2024 Atherosclerosis of [place] arteries of extremities with intermittent claudication, bilateral [...] Treatment Pending Test Test Name Order Date 89651-XFFVMSM NAIL, 6 OR MORE 05/03/2024 08426-TWLE SKIN LESIONS, OVER 4 05/03/20 24 62480-SPZV SKIN LESIONS, 2 TO 4 08/07/19 21 14790-DGGB SKIN LESIONS, 2 TO 4 12/28/19 21 73693-PSYP SKIN LESIONS, 2 TO 4 05/02/20 21 94528-TTXC SKIN LESIONS, 2 TO 4 09/06/19 22 Next Appt Details Provider Name:Yue reis, 09/20/2024 02:45:00 PM, [address] [facility] [place], [address], Insurance Providers Payer Name Payer Address Payer Phone Subscriber Number Group Number Insured Name Patient Relationship to Insured Coverage Start Date Coverage End Date Medicare National Govt S[employer] [address] [place] [address] [id number] Tad Villar Self - patient is the insured [facility] [address] [place] [address] [phone] [id number] Tad Villar Self - patient is the insured Medical (General) History Medical History History ICD Code Hypertension Heart condition Hyperlipidemia Ulcerative colitis Aortic stenosis Coronary artery disease Atrioventricular block Microscopic Hematuria Pneumonia Congestive heart failure DVT, thrombophlebitis Surgical History Surgery Date(Month/Year) cardiac pacemeker bypass surgery Defibrillator valve surgery
--- OUTSIDE RECORDS SUMMARY | 2024-08-28 09:06 | XMS_ITS | Patient Health Record ---
Author Organization [facility] Address [address] [place] [address] Care Team Providers Care Aerospace Quality Engineer Name Role Phone Avelino (RETIRED) Jean-Paul ZAPATA Primary Care Provid er Unavailable Jean-Paul Lemus Unavailable [phone] Allergies Allergen (clinical drug ingredient) Drug/Non Drug [...] Status Risk Notes Problem Colon cancer screening (992780951) Colon cancer screening (V76.51) Active confirmed Problem Hypertension (64836054) Hypertension (401.9) Active confirmed Problem 147968215 Change in bowel habits (R19.4) Active confirmed Problem 50148923 Constipation, unspecified constipation type (K59.00) Active confirmed Plan Of Treatment No Information Insurance Providers Payer Name Payer Address Payer Phone Subscriber Number Group Number Insured Name Patient Relationship to Insured Coverage Start Date Coverage End Date MEDICARE OF [place] [address] [place] [address] [id number] HEIDI YOUNG Self - patient is the insured MEDEX ATTN CLAIMS [address] [place] [address] [id number] HEIDI YOUNG Self - patient is the insured Medical (General) History Medical History History ICD Code Hypertension Denies CT,DM,CVA,Lung disease,renal dise ase Colonoscopies in [address] 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 Dodson at [facility], pacemaker and defibrillator--sees Dr. Jade DVT in right leg in 2003 Surgical History Surgery Date(Month/Year) 4V CABG and aortic valve replacement in 2012 as above 2012 Defibrillator Pacemaker
--- NOTE | 2024-08-28 09:07 | MHC.OFFWIV ---
Intake Vital Signs 08/28/24 09:08 Height 5 ft 6 in Weight 265 lb BMI 42.8 BP 132/80 Blood Pressure Location Lt brachial Position Sitting Pulse 75 Pulse Source Pulse Oximeter Temp 97.9 F Temp Source Oral Pulse Oximetry (%) 98 Intake Visit Reasons: EP- high BP 160 over ? 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 HPI Details Patient is an 84-year-old male with an extensive cardiac history, who is being seen by our PCP group in the [facility] 3 days ago, and had a blood pressure of 160/76 at that visit. He was evaluated by MANUEL Jones who reviewed his medications and found that he was taking his Lasix incorrectly. Instead of 80 mg in the morning and 40 color mg at night, he was doing 40 mg 3 times a day. They discussed the proper dosing and schedule, and reviewed dash diet. He was told to continue his other 3 blood pressure medications, as apparently he had reported that his blood pressures had been in range prior to this visit, with a systolic between 130-140 mmHg. He was asked to take his blood pressure regularly and keep a log and to follow up in 2 weeks to review his blood pressures. Apparently however, he does not have a blood pressure cuff at home and declined purchasing 1. So he was told by Dr. Shaw that he could come to the [place] office and have it checked here. Today he denies any symptoms, including chest pain shortness of breath dizziness weakness vision changes palpitations or other significant associated symptoms. [facility] Medical History Fall on ice Morbid obesity with BMI of 40.0-44.9, adult Cardiomyopathy History of left bundle branch block Hypertension Fatigue Current use of anticoagulant therapy Surgical History History of cardiac cath History of aortic valve replacement Family History Father No problems noted. Mother No problems noted. Social History Alcohol intake: current Alcohol intake frequency: a few times a month Alcohol type: beer Patient Tobacco Use Status: Former Tobacco user Years Smoked: 23 +/- Review of Systems Const All systems reviewed & are unremarkable except as noted in HPI and below Physical Exam Vital Signs: Last Vital Signs Temp 97.9 F 08/28/24 09:08 Pulse 75 08/28/24 09:08 BP 132/80 08/28/24 09:08 Pulse Ox 98 08/28/24 09:08 BMI result Body Mass Index 42.8 Const General: cooperative, healthy appearing, comfortable, alert and awake; No anxious Nutritional Appearance: overweight Orientation/consciousness: patient oriented x3 Resp Effort & Inspection: normal respiratory effort, able to speak in complete sentences, normal respiratory pattern, no audible wheezes, no cough, respiratory effort not decreased, no grunting, not labored, no nasal flaring, no stridor, not tachypneic, no tripod positioning, no use of accessory muscles and No prolonged expiratory phase Auscultation: clear to auscultation bilaterally Cardio Rate: regular rate Rhythm: regular rhythm Neuro General: patient oriented x3 Assessment & Plan Assessment & Plan (1) Hypertension: Code(s): I10 - Essential (primary) hypertension Qualifiers: Hypertension type: unspecified Qualified Code(s): I10 - Essential (primary) hypertension Plan: Patient is an 84-year-old male with an extensive cardiac history, who is being seen by our PCP group in the [place] office 3 days ago, and had a blood pressure of 160/76 at that visit. He was evaluated by MANUEL Jones who reviewed his medications and found that he was taking his Lasix incorrectly. Instead of 80 mg in the morning and 40 color mg at night, he was doing 40 mg 3 times a day. They discussed the proper dosing and schedule, and reviewed dash diet. He was told to continue his other 3 blood pressure medications, as apparently he had reported that his blood pressures had been in range prior to this visit, with a systolic between 130-140 mmHg. He was asked to take his blood pressure regularly and keep a log and to follow up in 2 weeks to review his blood pressures. Apparently however, he does not have a blood pressure cuff at home and declined purchasing one. So he was told by Dr. Shaw that he could come to the [place] office and have it checked here. Today he denies any symptoms, including chest pain shortness of breath dizziness weakness vision changes palpitations or other significant associated symptoms. His blood pressure is stable today, at 132/80, and he is in no apparent distress, and unremarkable limited exam. He walked his blood pressure, and was asked to follow up during the week if he is going to continue with getting his blood pressure taken in the office, as that is when the primary care providers are here. He knows to follow up in 2 weeks with his log book. He will come in sooner with any symptoms, and was advised to go to the emergency department with worrisome symptoms. Coding Level of Care Code Est Pt Level 4 (80169) Diagnoses Hypertension, unspecified type I10 Hypertension type: unspecified
[2024-08-28 09:08] VITALS: BP 132/80; PULSE 75; TEMP 36.6; O2SAT 98; BMI 42.8
== END 2024-08-28 11:20 | disposition home or self-care (01) ==
PROVIDERS: PCP Internal Medicine; Visit Provider Physician Assistant Medical
DX: I10 Essential (primary) hypertension (principal)

== ENCOUNTER → 2024-08-28 09:04 | Outpatient (BNVA) | payer MEDICARE, SELFPAY | PROVIDERS: PCP Internal Medicine; Visit Provider Physician Assistant Medical | DX: I10 Essential (primary) hypertension (principal) | CPT/HCPCS: 99212 ==

== ENCOUNTER 2024-09-07 08:58 | Outpatient (AMB) | payer MEDICARE, SELFPAY ==
--- NOTE | 2024-09-07 08:59 | A.OFFPC_ITS ---
Vital Signs 09/07/24 09:02 Height 5 ft 6 in Weight 262 lb BMI 42.3 BP 142/80 H Blood Pressure Location Rt brachial Pulse 60 Pulse Source Pulse Oximeter Temp 97.6 F Pulse Oximetry (%) 95 Intake Visit Reasons: physical Intake Note: no issues Allergies Penicillins [PENICILLINS] Allergy (Severe, Verified 09/07/24 09:35) HIVES Medication List - Last Reconciled 09/07/24 by Irish Jones PA-C acetaminophen ER 650 mg PO ONCE atorvastatin 40 mg PO DAILY cane Folding cane please.Use daily due to unsteady on feet and recurrent falls furosemide (Lasix) 40 mg PO DAILY lisinopril 40 mg PO DAILY metoprolol succinate ER 50 mg PO DAILY multivit,calc,nnd-VV-P6-lycop 240 mcg-30 mcg- 300 mcg (One-A-Day Men's Complete) 1 tab PO DAILY warfarin 5 mg See Protocol PO DAILY PFSH Medical History Annual physical exam Bilateral knee pain History of bad fall Multiple joint pain Fall on ice Morbid obesity with BMI of 40.0-44.9, adult Cardiomyopathy History of left bundle branch block Hypertension Fatigue Current use of anticoagulant therapy Surgical History History of cardiac cath History of aortic valve replacement Family History Father No problems noted. Mother No problems noted. Social History Alcohol intake: current Alcohol intake frequency: a few times a month Alcohol type: beer Patient Tobacco Use Status: Former Tobacco user Years Smoked: 23 +/- Cognitive needs: No Hearing needs: No Vision needs: No Questionnaire PHQ-9 Over the last 2 weeks, how often have you been bothered by any of the following problems? 1. Little interest or pleasure in doing things: not at all 2. Feeling down, depressed, or hopeless: not at all 3. Trouble falling or staying asleep, or sleeping too much: nearly every day (o nly because on Lasix and is always having to get up to urinate but not related to depression ) 4. Feeling tired or having little energy: nearly every day (only because on Lasix and is always having to get up to urinate but not related to depression) 5. Poor appetite or overeating: not at all 6. Feeling bad about yourself - or that you are a failure or have let yourself or your family down: not at all 7. Trouble concentrating on things, such as reading the newspaper or watching television: not at all 8. Moving or speaking so slowly that other people could have noticed. Or the opposite - being so fidgety or restless that you have been moving around a lot more than usual: not at all 9. Thoughts that you would be better off or of hurting yourself in some way: not at all Total score: 6 Depression Screening Interpretation: Negative Depression Screening Done: Yes 43434 - PHQ-9 Billing: Yes Source: Developed by Drs. Rc Duncan, Martha Brooks, Ryan Kramer and colleagues, with an educational casper from [employer]. Thrive Questionnaire Currently or been in a relationship where the following occur: No concerns reported (pt is single at this time ) THRIVE Score: 0 AUDIT C Alcohol Use Questionnaire (AUDIT-C) 1. How often do you have a drink containing alcohol?: Monthly or less 3. How often do you have six or more drinks on one occasion?: Never Total Score: 1 Score Reviewed/Action Taken: No GUNNER-7 AMB Questionnaire GUNNER-7 Date GUNNER - 7 assessed: 09/07/24 Feeling nervous, anxious, or on edge: 0 = Not at all Not being able to stop or control worryin = Not at all Worrying too much about different things: 0 = Not at all Trouble relaxin = Not at all Being so restless that it is hard to sit still: 0 = Not at all Becoming easily annoyed or irritable: 0 = Not at all Feeling afraid as if something awful might happen: 0 = Not at all Total GUNNER-7 score (0-4 normal; 5-9 mild; 10-14 moderate; 15-21 severe): 0 Source: Developed by Drs. Rc Duncan, Martha Brooks, Ryan Kramer and colleagues, with an educational casper from [employer]. GUNNER-7 Assessment Billing GUNNER-7 Assessment Tool: GUNNER-7 Assessment 86819 Physical exam (Primary Care) Vital Signs: Last Vital Signs Temp 97.6 F 09/07/24 09:02 Pulse 60 09/07/24 09:02 BP 142/80 H 09/07/24 09:02 Pulse Ox 95 09/07/24 09:02 Care Plan Goal for BP management: <130/80; pt to continue current antihypertensive treatment patient being followed by cardiology Dr. Jade and has an appointment next month. BMI result Body Mass Index 42.3 BMI Assessment/Plan discussion: High BMI High, discussed plan: lifestyle, weight reduction, dietary, physical activity and alcohol moderation Tobacco/Smoking Status: Tobacco use Status Patient Tobacco Use Status Former Tobacco user 09/07/24 09:04 PHQ-9: PHQ-9 Score PHQ-9: Total score 6 09/07/24 09:25 Depression Screening Interpretation: Negative Currently or been in a relationship where the following occur: No concerns reported (pt is single at this time ) Coding Level of Care Code Est Pt Prev Care >65y(90842) Diagnoses Annual physical exam Z00.00 Leg edema R60.0 Fatigue R53.83 Fall on ice W00.9XXA Multiple joint pain M25.50 History of bad fall Z91.81 Bilateral knee pain M25.561; M25.562 Current use of anticoagulant therapy Z79.01 History of aortic valve replacement Z95.2 Chronic diastolic CHF (congestive heart failure) I50.32 ICD (implantable cardioverter-defibrillator) in place Z95.810 CAD (coronary artery disease) I25.10 Essential hypertension I10 Morbid obesity with BMI of 40.0-44.9, adult E66.01; Z68.41 Cardiomyopathy I42.9 History of left bundle branch block Z86.79 Atrioventricular block I44.30 Aortic stenosis I35.0 Hyperlipidemia E78.5 DVT (deep venous thrombosis) I82.409 Ulcerative colitis K51.90 Additional Codes GUNNER-7 Assessment Billing - GUNNER-7 Assessment Tool: GUNNER-7 Assessment 23982 ([id number]) PHQ-9 - 61009 - PHQ-9 Billing: Yes ([id number]) Assessment & Plan Assessment & Plan (1) Annual physical exam: Code(s): Z00.00 - Encounter for general adult medical examination without abnormal findings Category: Medical (2) Leg edema: Code(s): R60.0 - Localized edema Category: Medical Plan: Patient with chronic lower extremity edema due to CHF. Patient being followed by Dr. Jade from [facility]. Patient currently on furosemide 80 mg in the morning and 40 mg at night. Patient has follow-up next month in September with Cardiology. Will continue current treatment regimen. Condition is chronic and stable continue to monitor. (3) Fatigue: Code(s): R53.83 - Other fatigue Category: Medical Plan: Patient has chronic fatigue. Condition is chronic and stable continue to monitor. (4) Fall on ice: Code(s): W00.9XXA - Unspecified fall due to ice and snow, initial encounter Category: Medical Plan: Patient with history of falls last fall approximately 1-2 months ago. Will order physical therapy referral due to recurrent falls, multiple joint pain. Will also order a cane. Condition is stable will continue to monitor. (5) Multiple joint pain: Code(s): M25.50 - Pain in unspecified joint Category: Medical Plan: Patient multiple joint pain and recurrent falls. Will order a cane and physical therapy referral. Condition is chronic and stable continue to monitor (6) History of bad fall: Code(s): Z91.81 - History of falling Category: Medical Plan: Patient with history of falls last fall approximately 1-2 months ago. Will order physical therapy referral due to recurrent falls, multiple joint pain. Will also order a cane. Condition is stable will continue to monitor. (7) Bilateral knee pain: Code(s): M25.561 - Pain in right knee; M25.562 - Pain in left knee Category: Medical Plan: Patient multiple joint pain and recurrent falls. Will order a cane and physical therapy referral. Condition is chronic and stable continue to monitor (8) Current use of anticoagulant therapy: Code(s): Z79.01 - [facility] (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 Plan: Patient currently on anticoagulation therapy for history of DVTs. Has recent INR check and has it every week. INR is at normal range at 2.4 on 08/26/2024. Condition is chronic and stable continue to monitor. (9) History of aortic valve replacement: Comment: Mechanical Code(s): Z95.2 - Presence of prosthetic heart valve Category: Surgical Plan: Patient currently being followed by Dr. Salcido from [facility]. Patient is currently on furosemide 60 mg in the morning and 40 mg at night, lisinopril 40 mg, metoprolol extended release 50 mg along with warfarin 5 mg daily. Patient has follow-up in September with Cardiology. Condition is chronic and stable continue to monitor. (10) Chronic diastolic CHF (congestive heart failure): Code(s): I50.32 - Chronic diastolic (congestive) heart failure Category: Medical Plan: Patient currently being followed by Dr. Salcido from [facility]. Patient is currently on furosemide 60 mg in the morning and 40 mg at night, lisinopril 40 mg, metoprolol extended release 50 mg along with warfarin 5 mg daily. Patient has follow-up in September with Cardiology. Condition is chronic and stable continue to monitor. (11) ICD (implantable cardioverter-defibrillator) in place: Code(s): Z95.810 - Presence of automatic (implantable) cardiac defibrillator Category: Medical Plan: Patient currently being followed by Dr. Salcido from [facility]. Patient is currently on furosemide 60 mg in the morning and 40 mg at night, lisinopril 40 mg, metoprolol extended release 50 mg along with warfarin 5 mg daily. Patient has follow-up in September with Cardiology. Condition is chronic and stable continue to monitor. (12) CAD (coronary artery disease): Comment: Status post 4 vessel CABG Code(s): I25.10 - Atherosclerotic heart disease of [place] coronary artery without angina pectoris Category: Medical Plan: Patient currently being followed by Dr. Salcido from [facility]. Patient is currently on furosemide 60 mg in the morning and 40 mg at night, lisinopril 40 mg, metoprolol extended release 50 mg along with warfarin 5 mg daily. Patient has follow-up in September with Cardiology. Condition is chronic and stable continue to monitor. (13) Essential hypertension: Code(s): I10 - Essential (primary) hypertension Category: Medical Plan: Patient currently being followed by Dr. Salcido from [facility]. Patient is currently on furosemide 60 mg in the morning and 40 mg at night, lisinopril 40 mg, metoprolol extended release 50 mg along with warfarin 5 mg daily. Patient has follow-up in September with Cardiology. Condition is chronic and stable continue to monitor. (14) Morbid obesity with BMI of 40.0-44.9, adult: Code(s): E66.01 - Morbid (severe) obesity due to excess calories; Z68.41 - Body mass index [BMI] 40.0-44.9, adult Category: Medical (15) Cardiomyopathy: Code(s): I42.9 - Cardiomyopathy, unspecified Category: Medical Plan: Patient currently being followed by Dr. Salcido from [facility]. Patient is currently on furosemide 60 mg in the morning and 40 mg at night, lisinopril 40 mg, metoprolol extended release 50 mg along with warfarin 5 mg daily. Patient has follow-up in September with Cardiology. Condition is chronic and stable continue to monitor. (16) History of left bundle branch block: Code(s): Z86.79 - Personal history of other diseases of the circulatory system Category: Medical Plan: Patient currently being followed by Dr. Salcido from [facility]. Patient is currently on furosemide 60 mg in the morning and 40 mg at night, lisinopril 40 mg, metoprolol extended release 50 mg along with warfarin 5 mg daily. Patient has follow-up in September with Cardiology. Condition is chronic a nd stable continue to monitor. (17) Atrioventricular block: Comment: Status post PPP Code(s): I44.30 - Unspecified atrioventricular block Category: Medical Plan: Patient currently being followed by Dr. Salcido from [facility]. Patient is currently on furosemide 60 mg in the morning and 40 mg at night, lisinopril 40 mg, metoprolol extended release 50 mg along with warfarin 5 mg daily. Patient has follow-up in September with Cardiology. Condition is chronic and stable continue to monitor. (18) Aortic stenosis: Comment: Status post AVR with mechanical [facility] [employer] valve Code(s): I35.0 - Nonrheumatic aortic (valve) stenosis Category: Medical Plan: Patient currently being followed by Dr. Salcido from [facility]. Patient is currently on furosemide 60 mg in the morning and 40 mg at night, lisinopril 40 mg, metoprolol extended release 50 mg along with warfarin 5 mg daily. Patient has follow-up in September with Cardiology. Condition is chronic and stable continue to monitor. (19) Hyperlipidemia: Code(s): E78.5 - Hyperlipidemia, unspecified Category: Medical Plan: Patient currently on atorvastatin 40 mg daily. LDL goal < 70. Triglyceride goal less than 150. Total cholesterol go less than 200. HDL go greater than 40. Patient had labs on 08/26/2024 which revealed triglycerides 98, total cholesterol 144, LDL 85 and HDL 40. At goal. Will continue this current regimen. Condition is chronic and stable continue to monitor. (20) DVT (deep venous thrombosis): Code(s): I82.409 - Acute embolism and thrombosis of unspecified deep veins of unspecified lower extremity Category: Medical Plan: Patient currently being followed by Dr. Salcido from [facility]. Patient is currently on furosemide 60 mg in the morning and 40 mg at night, lisinopril 40 mg, metoprolol extended release 50 mg along with warfarin 5 mg daily. Patient has follow-up in September with Cardiology. Condition is chronic and stable continue to monitor. (21) Ulcerative colitis: Code(s): K51.90 - Ulcerative colitis, unspecified, without complications Category: Medical Plan: Patient denies any GI related complaints. Condition is chronic and stable continue to monitor. Plan Plan Patient was informed and verbally consented to the use of an ambient scribe for clinic note documentation during this visit. 1. Deep Vein Thrombosis Continuation of anticoagulation with warfarin and INR monitoring in conjunction with the [facility]'s oversight. 2. Fatigue Due To [place] Clarification on diuretic intake timing to potentially minimize sleep disruption, acknowledging the necessity for its current use in CHF management. 3. Polyosteoarthritis, unspecified Plan includes initiating a referral for physical therapy to address joint mobility and strength, along with adapting personal home care strategies as needed, pending insurance examination. 4. Cardiomyopathy And Aortic Stenosis Post-Avr Ongoing cardiology follow-up with Dr. Jade is emphasized for comprehensive cardiovascular health maintenance post-intervention. 5. Hypertension Maintenance of current medication regimen with advisement on proper blood pressure measurement practices, considering potential measurement variability due to cuff sizing. Discussion Notes I discussed with the patient the significance of managing his osteoarthritis through physical therapy, emphasizing potential improvement in mobility and comfort with progressive exercises and pain alleviation strategies. Regarding hypertension, we reviewed the potential impact of incorrect cuff size on purportedly elevated readings and agreed on verifying proper equipment usage before altering his medication regimen. For DVT and cardiac concerns, warfarin therapy continues to be supported, ensuring regular INR checks, which Dr. Jerry will monitor during his upcoming follow-up. The patient's fatigue likely results from nocturia due to chronic diuretic use; thus, adjusting the timing of dosing was suggested. Additionally, I reassured him regarding his overall lab results, noting the importance of maintaining his current medication regimen. Orders: Orders PT Evaluation and Treatment Today M25.50 - Pain in unspecified joint, M25.561 - Pain in right knee, M25.562 - Pain in left knee, R53.83 - Other fatigue, R60.0 - Localized edema, Z91.81 - History of falling Medications: New cane Folding cane please.Use daily due to unsteady on feet and recurrent falls 1 ea 1RF I10 - Essential (primary) hypertension, I25.10 - Atherosclerotic heart disease of [place] coronary artery without angina pectoris, I50.32 - Chronic diastolic (congestive) heart failure, M25.50 - Pain in unspecified joint, M25.561 - Pain in right knee, M25.562 - Pain in left knee, R53.83 - Other fatigue, R60.0 - Localized edema, W00.9XXA - Unspecified fall due to ice and snow, initial encounter, Z79.01 - long term care pharmacist (current) use of anticoagulants, Z91.81 - History of falling, Z95.2 - Presence of prosthetic heart valve, Z95.810 - Presence of automatic (implantable) cardiac defibrillator cane Folding cane please.Use daily due to unsteady on feet and recurrent falls 1 ea 1RF I10 - Essential (primary) hypertension, I25.10 - Atherosclerotic heart disease of [place] coronary artery without angina pectoris, I50.32 - Chronic diastolic (congestive) heart failure, M25.50 - Pain in unspecified joint, M25.561 - Pain in right knee, M25.562 - Pain in left knee, R53.83 - Other fatigue, R60.0 - Localized edema, W00.9XXA - Unspecified fall due to ice and snow, initial encounter, Z79.01 - [facility] (current) use of anticoagulants, Z91.81 - History of falling, Z95.2 - Presence of prosthetic heart valve, Z95.810 - Presence of automatic (implantable) cardiac defibrillator Patient Instructions: Patient Instructions - Engage in physical therapy sessions as prescribed to facilitate easing of arthritic symptoms. - Monitor blood pressure with properly sized equipment to ensure accurate readings. - Continue with warfarin therapy under regular INR assessment. - Visit the cement mixer driver for ongoing cardiac management and care. - Attempt to take diuretics earlier to reduce nighttime disruptions. - Follow up with the healthcare team as advised for any new or persistent symptoms. - Avoid frequent, heavy lifting and maintain safety precautions to prevent falls. Scribe Plan - Not visible on output: History of Present Illness The patient is an 84-year-old male presenting for his annual physical exam. In addition he would like to discuss generalized fatigue and multiple joint pain related to generalized osteoarthritis. Initially, his right leg was significantly affected due to severe arthritis diagnosed approximately 5 to 10 years ago, leading to x-ray confirmation and specialist management. The arthritis has since spread, involving both shoulders and knees, resulting in functional limitations, finger numbness at night, and challenges in standing from seated positions without assistance. He has adapted by purchasing a raised chair for easier mobility and seeks additional support for exercise to address these difficulties. He also expresses concern about the coverage of potential therapies under his insurance. The patient has experienced sleep disturbances mainly due to nocturia linked to prescription diuretics, encountering fatigue as a result. His medical history outlines substantial cardiovascular issues, including hypertension, cardiomyopathy, aortic stenosis with surgical valve replacement, and coronary artery disease post-bypass surgery. He maintains a regimen of multiple cardiac medications, including lipid-lowering agents and chronic anticoagulation following a DVT episode. Social History - Retired and resides with a pet obando retriever in an adapted trailer. - Reports occasional alcohol use, primarily social with friends. - History of international travel, but no recent travels mentioned. 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 - Expresses desire for functional improvement to recommence walking on trails. Review of Systems - Musculoskeletal: Reports significant joint stiffness and pain. - Neurological: Reports shoulder numbness with associated finger numbness during the night. - Cardiovascular: Denies recent chest pain or palpitations but experiences hypertension. - Urinary: Reports frequent nighttime urination due to diuretics. Physical Exam Appearance: Alert. Oriented X3. No acute distress. Head: Normal external exam. Normocephalic. Atraumatic. Eyes: Pupils are equal, round, and reactive to light. Extraocular movements intact. Conjunctiva and sclera normal. Eyelids normal. Ears: External auditory canal normal. Tympanic membranes normal. Throat: Pharynx normal. Uvula midline. Moist mucous membranes. Neck: Normal inspection. Neck supple. Full range of motion. No adenopathy. Thyroid Normal. No meningeal signs. No neck mass noted. Cardiovascular: Normal heart rate and rhythm. Heart sound normal. No murmurs noted. Pulses normal throughout. Respiratory: No respiratory distress. Painless inspiration. Breath sounds normal. No wheezes/rales/rhonchi noted. Chest nontender. No accessory muscle usage noted or decreased air movement noted. Abdomen: Soft and nontender. Bowel sounds normal in all 4 quadrants. No distention noted. No organomegaly noted. No visible injury noted. Back: No costovertebral angle tenderness. Full range of motion noted. Skin: Skin warm and dry. Normal skin color. Normal skin turgor. No rashes/lesions/lacerations noted. Extremities: Right leg exhibits swelling during the day, normal in the morning. History of blood clot in 2003 in the right leg. Moderate pitting edema to bilateral lower extremity. There is no calf tenderness noted. Normal pedal pulses. Normal capillary refill. No cyanosis is noted. Patient with multiple joint pain although no obvious deformities or obvious joint effusions or signs of infection. He has good range of motion of joints. Neuro: Oriented X 3. No motor deficit. No sensory deficit. Reflexes normal. Reports numbness in four fingers of one hand at night. Reports arthritis affecting the whole body, including knees and shoulder. Patient has a good steady gait. Results - Labs: Recent blood work showing good INR, slight anemia previously reported. - Tests: Historical imaging revealing severe arthritis in the right leg.
[2024-09-07 09:02] VITALS: BP 142/80; PULSE 60; TEMP 36.4; O2SAT 95; BMI 42.3
== END 2024-09-07 09:34 | disposition home or self-care (01) ==
LOC: HO.HMCSH 08:58
PROVIDERS: PCP Internal Medicine; Visit Provider Physician Assistant Medical
DX: I50.32 Chronic diastolic (congestive) heart failure (principal); E66.01 Morbid (severe) obesity due to excess calories; Z68.41 Body mass index [BMI] 40.0-44.9, adult; I82.409 Acute embolism and thrombosis of unspecified deep veins of unspecified lower extremity; I42.9 Cardiomyopathy, unspecified; K51.90 Ulcerative colitis, unspecified, without complications; R60.0 Localized edema; R53.83 Other fatigue; W00.9XXA Unspecified fall due to ice and snow, initial encounter; M25.50 Pain in unspecified joint; Z91.81 History of falling

== ENCOUNTER → 2024-09-07 08:58 | Outpatient (BNVA) | payer MEDICARE, SELFPAY | PROVIDERS: PCP Internal Medicine; Visit Provider Physician Assistant Medical | DX: Z00.00 Encounter for general adult medical examination without abnormal findings (principal); R60.0 Localized edema; R53.83 Other fatigue; M25.50 Pain in unspecified joint; Z91.81 History of falling; M25.561 Pain in right knee; M25.562 Pain in left knee; Z95.2 Presence of prosthetic heart valve; I50.30 Unspecified diastolic (congestive) heart failure; I42.9 Cardiomyopathy, unspecified; I44.30 Unspecified atrioventricular block; I35.0 Nonrheumatic aortic (valve) stenosis; E78.5 Hyperlipidemia, unspecified; K51.90 Ulcerative colitis, unspecified, without complications | CPT/HCPCS: 96127; 99212 ==

== ENCOUNTER 2024-09-09 07:59 | Outpatient (AMB) | payer MEDICARE, SELFPAY ==
--- OUTSIDE RECORDS SUMMARY | 2024-09-09 08:02 | XMS_ITS ---
Author Organization [facility] Address [address] [place] [address] Care Team Providers Care Cash Teller Name Role Phone Rc You MD Primary Care Provider Unavail able Yue Lobo Unavailable [phone] Scott Cline Unavailable [phone] Allergies Allergen (clinical drug ingredient) Drug/Non Drug Allergy documented on EMR Reaction Allergy Type Onset Date Status ramipril Altace headache Drug Allergy Active acetaminophen / oxycodone Percocet vomiting Drug Allergy Active tramadol Tramadol HCl neuropathy Drug Allergy Act javier atenolol Atenolol headache Drug Allergy Active Penicillin pain Drug Allergy Active Substance with 9-zoemhdv-0-methylgl utaryl-coenzyme A reductase inhibitor mechanism of action [...] 10/30/2023 Encounters Encounter Location Date Provider Diagnosis [facility] [address] [address] 10/30/2023 Scott Cline Tinea unguium B35.1 ; Pain in right toe(s) M79.674 ; Pain in left toe(s) M79.675 ; Skin disease L98.9 ; Atherosclerosis of [place] arteries of extremities with intermittent claudication, bilateral [...] disease (ICD-10 - L98.9) 10/30/2023 Atherosclerosis of [place] arteries of extremities with intermittent claudication, bilateral legs (ICD-10 - I70.213) 10/30/2023 Other hammer toe(s) (acquired), left foot (ICD-10 - M20.42) 10/30/2023 Other hammer toe(s) (acquired), right foot (ICD-10 - M20.41) 10/30/2023 Xerosis cutis (ICD-10 - L85.3) Plan Of Treatment Next Appt Details Follow Up: 3 Months, Reason: Provider Name:Yue reis, 09/20/2024 02:45:00 PM, [address] [place], [address], Procedure Notes * Category Sub-Category Detail Notes [...] as necessary. Patient chooses, no pharmaceutical tx (18169) Keratoma Treatment Parring or Cutting o f Benign Hyperkeratotic Lesion(s) 31609 (2-4 Lesions) - The Benign hyperkeratotic lesions, as described above were pared, and/or cut utilizing a sterile #15 blade, tissue nippers, and/or dremel, Q8 Progress Notes * Tad VILLARDOB:1940 (83 yo M)Acc No.[id number]:10/30/2023 Progress Note Patient:?Tad Villar Provider:?Scott Cline DPM :1940???Age:83 Y???Sex:Male Sam e:10/30/2023 Address:[address] [place], [place] [id number] Pcp:Rc You MD Subjective: * Chief Complaints: [...] Children, none. ?Exercise: yes, exercise/ cardiac re[place] [facility] [place]. ?Marital status: single. 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 * Medications:?TakingAspirin A [...] toe(s) - M79.675?4.?Skin disease - L98.9?5.?Atherosclerosis of [place] arteries of extremities with intermittent claudication, bilateral [...] as necessary. Patient chooses, no pharmaceutical tx (46363).?Keratoma Treatment:?Parring or Cutting of Benign Hyperkeratotic Lesion(s)?86034 (2-4 Lesions) - The Benign hyperkeratotic lesions, as described above were pared, and/or cut utilizing a sterile #15 blade, tissue nippers, and/or dremel, Q8.? * Procedure Codes:?35218 DEBRI DE NAIL, 6 OR MORE, Modifiers: XS 92403 TRIM SKIN LESIONS, 2 TO 4, Modifiers: Q8 * Follow Up:?3 Months * Images: * Sign off status: Completed true * Provider:?Scott Cline DPM Date:? 024 Generated for Gallo moralez/Alvin/eTransmitting on:?09/09/2024 08:02 AM EDT History and Physical Notes * [...]
--- OUTSIDE RECORDS SUMMARY | 2024-09-09 08:02 | XMS_ITS ---
Author Organization [facility] Address [address] [place] [address] Care Team Providers Care Automatic Door Mechanic Name Role Phone Rc You MD Primary Care Provider Unavail able Yue Lobo Unavailable [phone] Scott Cline Unavailable [phone] Allergies Allergen (clinical drug ingredient) Drug/Non Drug Allergy documented on EMR Reaction Allergy Type Onset Date Status ramipril Altace headache Drug Allergy Active acetaminophen / oxycodone Percocet vomiting Drug Allergy Active tramadol Tramadol HCl neuropathy Drug Allergy Act javier atenolol Atenolol headache Drug Allergy Active Penicillin pain Drug Allergy Active Substance with 8-zoftvck-6-methylgl utaryl-coenzyme A reductase inhibitor mechanism of action [...] 024 Encounters Encounter Location Date Provider Diagnosis [facility] [place] [address] [place] [address] 02/02/2024 Scott Cline Tinea unguium B35.1 ; Pain in right toe(s) M79.674 ; Pain in left toe(s) M79.675 ; Skin disease L98.9 ; Atherosclerosis of [place] arteries of extremities with intermittent claudication, bilateral [...] disease (ICD-10 - L98.9) 02/02/2024 Atherosclerosis of [place] arteries of extremities with intermittent claudication, bilateral legs (ICD-10 - I70.213) 02/02/2024 Other hammer toe(s) (acquired), left foot (ICD-10 - M20.42) 02/02/2024 Other hammer toe(s) (acquired), right foot (ICD-10 - M20.41) 02/02/2024 Xerosis cutis (ICD-10 - L85.3) Plan Of Treatment Next Appt Details Follow Up: 3 Months, Reason: Provider Name:Yue reis, 09/20/2024 02:45:00 PM, [address] [place], [address], Procedure Notes * Category Sub-Category Detail Notes [...] as necessary. Patient chooses, no pharmaceutical tx (39210) Keratoma Treatment Parring or Cutting o f Benign Hyperkeratotic Lesion(s) 37268 (2-4 Lesions) - The Benign hyperkeratotic lesions, as described above were pared, and/or cut utilizing a sterile #15 blade, tissue nippers, and/or dremel, Q8 Progress Notes * Tad VILLARDOB:1940 (83 yo M)Acc No.[id number]:02/02/2024 Progress Note Patient:?Tad Villar Provider:?Scott Cline DPM :1940???Age:83 Y???Sex:Male Sam e:02/02/2024 Address:[address] [place], [place] [id number] Pcp:Rc You MD Subjective: * Chief Complaints: [...] Children, none. ?Exercise: yes, exercise/ cardiac rehab [facility] [place]. ?Marital status: single. 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 * Medications:?TakingAspirin A dult Low [...] toe(s) - M79.675?4.?Skin disease - L98.9?5.?Atherosclerosis of [place] arteries of extremities with intermittent claudication, bilateral [...] as necessary. Patient chooses, no pharmaceutical tx (00591).?Keratoma Treatment:?Parring or Cutting of Benign Hyperkeratotic Lesion(s)?13714 (2-4 Lesions) - The Benign hyperkeratotic lesions, as described above were pared, and/or cut utilizing a sterile #15 blade, tissue nippers, and/or dremel, Q8.? * Procedure Codes:?83214 DEBRI DE NAIL, 6 OR MORE, Modifiers: XS 48968 TRIM SKIN LESIONS, 2 TO 4, Modifiers: Q8 * Follow Up:?3 Months * Images: * Sign off status: Completed true * Provider:?Scott Cline DPM Date:? 024 Generated for Gallo moralez/Alvin/eTelyssa on:?09/09/2024 08:02 AM EDT History and Physical [...]
--- OUTSIDE RECORDS SUMMARY | 2024-09-09 08:02 | XMS_ITS | Patient Health Record ---
Author Organization [facility] Address [address] [place] [address] Care Team Providers Care Dba Developer Name Role Phone Rc You MD Primary Care Provider Unavail able Yue Lobo Unavailable [phone] Scott Cline Unavailable [phone] Allergies Allergen (clinical drug ingredient) Drug/Non Drug Allergy documented on EMR Reaction Allergy Type Onset Date Status ramipril Altace headache Drug Allergy Active acetaminophen / oxycodone Percocet vomiting Drug Allergy Active tramadol Tramadol HCl neuropathy Drug Allergy Act javier atenolol Atenolol headache Drug Allergy Active Penicillin pain Drug Allergy Active Substance with 0-xozhmni-3-methylgl utaryl-coenzyme A reductase inhibitor mechanism of action [...] Problem Acquired hammer toe of right foot (8385069148183577) Other hammer toe(s) (acquired), right foot (M20.41) Active confirmed Problem Acquired hammer toe of left foot (9724356407883779) Other hammer toe(s) (acquired), left foot (M20.42) Active confirmed Problem Intermittent claudication of bilateral lower limbs co-occurrent and due to atherosclerosis (89862115426204560 ) Atherosclerosis of [place] arteries of extremities with intermittent claudication, 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) Active confirmed Problem Atherosclerosis of [place] artery of both lower extremities, with unspecified presence of clinical manifestation (I70.203) Active confirmed Q7(A), Q8(2B), Q9(1B,2 C) Vital Signs Blood pressure diastolic 79 mm Hg 05/03/2024 Height 5 ft 10 in in 05/03/2024 Blood pressure systolic 121 mm Hg 05/03/2024 Weight 260 lbs 05/03/2024 BMI 37.3 kg/m2 05/03/2024 Procedures Procedure Date Ordered Date Performed Result Body Sit e 66298-SOUIZYG NAIL, 6 OR MORE 05/03/2024 N/A 08806-BKFJ SKIN LESIONS, OVER 4 05/03/2024 N/A Encounters Encounter Location Date Provider Diagnosis [facility] [address] [place] [address] 10/30/2023 Scott Cline Tinea unguium B35.1 ; Pain in right toe(s) M79.674 ; Pain in left toe(s) M79.675 ; Skin disease L98.9 ; Atherosclerosis of [place] arteries of extremities with intermittent claudication, bilateral legs I70.213 ; Other hammer toe(s) (acquired), left foot M20.42 ; Other hammer toe(s) (acquired), right foot M20.41 and Xerosis cutis L85.[address] [address] 02/02/2024 ScottPineda Tinea unguium B35.1 ; Pain in right toe(s) M79.674 ; Pain in left toe(s) M79.675 ; Skin disease L98.9 ; Atherosclerosis of [place] arteries of extremities with intermittent claudication, bilateral legs I70.213 ; Other hammer toe(s) (acquired), left foot M20.42 ; Other hammer toe(s) (acquired), right foot M20.41 and Xerosis cutis L85.[address] [address] 05/03/2024 Yue Lobo Atherosclerosis of [place] artery of both lower extremities, with unspecified [...] unguium (ICD-10 - B35.1) 05/03/2024 Atherosclerosis of [place] artery of both lower extremities, with unspecified [...] disease (ICD-10 - L98.9) 10/30/2023 Atherosclerosis of [place] arteries of extremities with intermittent claudication, bilateral legs (ICD-10 - I70.213) 02/02/2024 Atherosclerosis of [place] arteries of extremities with intermittent claudication, bilateral [...] Treatment Pending Test Test Name Order Date 26101-GEJTSQG NAIL, 6 OR MORE 05/03/2024 52499-BVWC SKIN LESIONS, OVER 4 05/03/20 24 58554-LFFR SKIN LESIONS, 2 TO 4 08/07/19 21 54537-UCSA SKIN LESIONS, 2 TO 4 12/28/19 21 14150-TBAY SKIN LESIONS, 2 TO 4 05/02/20 21 61691-DUKV SKIN LESIONS, 2 TO 4 09/06/19 22 Next Appt Details Provider Name:Yue reis, 09/20/2024 02:45:00 PM, [address] [facility], [place], [address], Insurance Providers Payer Name Payer Address Payer Phone Subscriber Number Group Number Insured Name Patient Relationship to Insured Coverage Start Date Coverage End Date Medicare National Govt Svcs Inc [address] [place] [address] [id number] Tad Villar Self - patient is the insured [facility] [address] [place] [address] [phone] [id number] Tad Villar Self - patient is the insured Medical (General) History Medical History History ICD Code Hypertension Heart condition Hyperlipidemia Ulcerative colitis Aortic stenosis Coronary artery disease Atrioventricular block Microscopic Hematuria Pneumonia Congestive heart failure DVT, thrombophlebitis Surgical History Surgery Date(Month/Year) cardiac pacemeker bypass surgery Defibrillator valve surgery
--- OUTSIDE RECORDS SUMMARY | 2024-09-09 08:02 | XMS_ITS ---
Author Organization [facility] Address [address] [place] [address] Care Team Providers Care Laborer Demolition Name Role Phone Rc You MD Primary Care Provider Unavail able Yue Lobo Unavailable [phone] Allergies Allergen (clinical drug ingredient) Drug/Non Drug Allergy documented on EMR Reaction Allergy Type Onset Date Status ramipril Altace headache Drug Allergy Active acetaminophen / oxycodone Percocet vomiting Drug Allergy Active tramadol Tramadol HCl neuropathy Drug Allergy Act javier atenolol Atenolol headache Drug Allergy Active Penicillin pain Drug Allergy Active Substance with 0-ormhxpu-3-methylgl utaryl-coenzyme A reductase inhibitor mechanism of action [...] W/U Status Risk Notes Problem Atherosclerosis of [place] artery of both lower extremities, with unspecified presence of clinical manifestation (I70.203) Active confirmed Q7(A), Q8(2B), Q9(1B,2C) Vital Signs Height 5 ft 10 in in 05/03/2024 Weight 260 lbs 05/03/2024 BMI 37.3 kg/m2 05/03/2024 Blood pressure systolic 121 mm Hg 05/03/20 24 Blood pressure diastolic 79 mm Hg 024 Procedures Procedure Date Ordered Date Performed Result Body Sit e 23266-IFRZQOS NAIL, 6 OR MORE 05/03/2024 N/A 48803-LMUC SKIN LESIONS, OVER 4 05/03/2024 N/A Encounters Encounter Location Date Provider Diagnosis [facility] [place] [address] [place] [address] 05/03/2024 Yue Lobo Atherosclerosis of [place] artery of both lower extremities, with unspecified presence of clinical manifestation I70.203 ; Tinea unguium B35.1 ; Pain in right toe(s) M79.674 and Pain in left toe(s) M79.675 Assessments Encounter Date Diagnosis (ICD Code) Assessment Notes Treatment Notes Treatment Clinical Notes Section Notes 05/03/2024 Atherosclerosis of [place] artery of both lower extremities, with unspecified presence of clinical manifestation (ICD-10 - I70.203) Q7(A), Q8(2B), Q9(1B,2C) 05/03/2024 Tinea unguium (ICD-10 - B35.1) 05/03/2024 Pain in right toe(s) (ICD-10 - M79.674) 05/03/2024 Pain in left toe(s) (ICD-10 - M79.675) Plan Of Treatment Pending Test Test Name Order Date 17266-OSLLAQK NAIL, 6 OR MORE 05/03/2024 92891-MTJL SKIN LESIONS, OVER 4 05/03/20 24 Next Appt Details Follow Up: prn, Reason: Provider Name:Yue Graham smiley, 09/20/2024 02:45:00 PM, [address] [place], [address], Procedure Notes * Category Sub-Category Detail Notes [...] use of a nail nipper and/or dremel-type turbinated bone grinder, to a more viable healthy nail plate or bed tissue 6-10. Silver nitrate used for any petechial bleeding as necessary. Definitive antifungal treatment options have been reviewed and discussed with the patient. The patient chooses, no pharmaceutical tx - [address]45 Keratoma Treatment Parring or Cutting o f Benign Hyperkeratotic Lesion(s) (-57) More than 4 Lesions - The Benign hyperkeratotic lesions, as described in exam, were pared, and/or cut utilizing a sterile 15 blade, tissue nippers, and/or dremel - 48244, Q8 Progress Notes * Tad VILLARDOB:1940 (84 yo M)Acc No.[id number]:05/03/2024 Progress Note Patient:?Tad VILLAR Provider:?Yue Lobo DPM :1940???Age:84 Y???Sex:Male Sam e:05/03/2024 Address:[address] [place], [place] [address] Pcp:Rc You MD Subjective: * Chief Complaints: [...] yes, exercise/ cardiac rehab [facility] [place]. ?Marital status: single. 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 * Medications:?TakingAspirin A dult Low [...] 1.?Tinea unguium - B35.1 (Pr imary)???2.?Atherosclerosis of [place] artery of both lower extremities, with unspecified presence of clinical manifestation - I70.203???Notes :Q7(A), Q8(2B), Q9(1B,2C)???3.?Pain in right toe(s) - M79.674???4.?Pain in left toe(s) - M79.675??? Plan: * Treatment: 2.?Atherosclerosis of [place] artery of both lower extremities, with unspecified presence of clinical manifestation?Procedure: 62184-VLPA SKIN LESIONS, OVER 4 * Procedures:?Debride Nail [...] use of a nail nipper and/or dremel-type turbinated bone grinder, to a more viable healthy nail plate or bed tissue 6-10. Silver nitrate used for any petechial bleeding as necessary. Definitive antifungal treatment options have been reviewed and discussed with the patient. The patient chooses, no pharmaceutical tx - 17512.?Keratoma Treatment:?Parring or Cutting of Benign Hyperkeratotic Lesion(s)?(-57) More than 4 Lesions - The Benign hyperkeratotic lesions, as described in exam, were pared, and/or cut utilizing a sterile 15 blade, tissue nippers, and/or dremel - 31325, Q8.? * Procedure Codes:?02286 DEBRI DE NAIL, 6 OR MORE, Modifiers: XS 82943 TRIM SKIN LESIONS, OVER 4, Modifiers: XS , Q8 * Follow Up:?prn * Images: * Sign off status: Completed true * Provider:?Yue Lobo DPM Date:?07/03/2023 Generated for Gallo moralez/Alvin/Tyrese on:?09/09/2024 08:01 AM EDT History and Physical Notes * [...]
--- OUTSIDE RECORDS SUMMARY | 2024-09-09 08:02 | XMS_ITS | Patient Health Record ---
Author Organization [facility] Address [address] [place] [address] Care Team Providers Care Sewage Screen Operator Name Role Phone Avelino (RETIRED) Jean-Paul ZAPATA Primary Care Provid er Unavailable Jean-Paul Lemus Unavailable [phone] Allergies Allergen (clinical drug ingredient) Drug/Non Drug [...] Status Risk Notes Problem Colon cancer screening (317275914) Colon cancer screening (V76.51) Active confirmed Problem Hypertension (01291951) Hypertension (401.9) Active confirmed Problem 455835994 Change in bowel habits (R19.4) Active confirmed Problem 73636732 Constipation, unspecified constipation type (K59.00) Active confirmed Plan Of Treatment No Information Insurance Providers Payer Name Payer Address Payer Phone Subscriber Number Group Number Insured Name Patient Relationship to Insured Coverage Start Date Coverage End Date MEDICARE OF [place] [address] [place] [address] [id number] HEIDI YOUNG Self - patient is the insured [employer] CLAIMS [address] [place] [address] [id number] HEIDI YOUNG Self - patient is the insured Medical (General) History Medical History History ICD Code Hypertension Denies NV,DM,CVA,Lung disease,renal dise ase Colonoscopies in [address] 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 Dodson at [facility], pacemaker and defibrillator--sees Dr. Jade DVT in right leg in 2003 Surgical History Surgery Date(Month/Year) 4V CABG and aortic valve replacement in 2012 as above 2012 Defibrillator Pacemaker
--- NOTE | 2024-09-09 08:17 | MHC.OFFVISCO ---
Intake Intake Visit Reasons: Anticoagulation Allergies Penicillins [PENICILLINS] Allergy (Severe, Verified 09/09/24 08:04) HIVES Medication List - Last Reconciled 09/09/24 by Destinee Pascal RN acetaminophen ER 650 mg PO ONCE atorvastatin 40 mg PO DAILY cane Folding cane please.Use daily due to unsteady on feet and recurrent falls furosemide (Lasix) 40 mg PO DAILY lisinopril 40 mg PO DAILY metoprolol succinate ER 50 mg PO DAILY multivit,calc,lwn-BU-M3-lycop 240 mcg-30 mcg- 300 mcg (One-A-Day Men's Complete) 1 tab PO DAILY warfarin 5 mg See Protocol PO DAILY Nursing Note INR: 1.9 ALMOST in therapeutic range 2.0-3.0 Medications and supplements reviewed- HAD LESS TYLENOL AND MORE CABBAGE RECENTLY No changes in health, , medications, or supplements, Denies any signs and symptoms of bleeding or bruising or clotting. Bleeding, bruising, clotting discussed Nutritional guidance given - NO GREENS TODAY Dose: 5MG TODAY THEN 2.5MG DAILY F/U INR: 2 WEEKS Patient verbalizes understanding of instructions given Anti-Coag Initial Assessment Social Hx Patient Tobacco Use Status: Former Tobacco user alcohol intake: current Alcohol intake frequency: a few times a month Coding Level of Care Code Est Patient Level 1 Diagnoses Current use of anticoagulant therapy Z79.01 Results AMB INR Fingerstick AMB INR Fingerstick 1.9 Last Edit by Destinee Pascal RN on 09/09/24 08:12 manual Assessment & Plan Assessment & Plan (1) Current use of anticoagulant therapy: Code(s): 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
[2024-09-09 08:35] LABS: Prothrombin Time Whole Bld POC 22.3 sec (11.1-13.5); ~PT, ~INR - Anti Coag Clinic 1.9 (0.9-1.1)
== END 2024-09-09 08:21 | disposition home or self-care (01) ==
LOC: HO.ACS 07:59
PROVIDERS: PCP Internal Medicine; Visit Provider Internal Medicine Medical Oncology
DX: Z79.01 Long term (current) use of anticoagulants (principal)

== ENCOUNTER → 2024-09-09 07:59 | Outpatient (BNVA) | payer MEDICARE, SELFPAY | PROVIDERS: PCP Internal Medicine; Visit Provider Internal Medicine Medical Oncology | DX: Z95.2 Presence of prosthetic heart valve (principal); Z51.81 Encounter for therapeutic drug level monitoring; Z79.01 Long term (current) use of anticoagulants | CPT/HCPCS: 85610; 99211 ==

== ENCOUNTER 2024-09-23 08:15 | Outpatient (AMB) | payer MEDICARE, SELFPAY ==
--- NOTE | 2024-09-23 08:51 | MHC.OFFVISCO ---
Intake Intake Visit Reasons: Anticoagulation Allergies Penicillins [PENICILLINS] Allergy (Severe, Verified 09/23/24 08:36) HIVES Medication List - Last Reconciled 09/23/24 by Janet Deng RN acetaminophen ER 650 mg PO ONCE atorvastatin 40 mg PO DAILY cane Folding cane please.Use daily due to unsteady on feet and recurrent falls furosemide (Lasix) 40 mg PO DAILY lisinopril 40 mg PO DAILY metoprolol succinate ER 50 mg PO DAILY multivit,calc,tfi-EY-W5-lycop 240 mcg-30 mcg- 300 mcg (One-A-Day Men's Complete) 1 tab PO DAILY warfarin 5 mg See Protocol PO DAILY Nursing Note INR: 2.3 in therapeutic range of 2-3 Medications and supplements reviewed No changes in health, diet, medications, or supplements, Denies any signs and symptoms of bleeding or bruising or clotting. Bleeding, bruising, clotting discussed Nutritional guidance given Dose: 2.5mg daily F/U INR: 2 weeks Patient verbalizes understanding of instructions given Anti-Coag Initial Assessment Social Hx Patient Tobacco Use Status: Former Tobacco user alcohol intake: current Alcohol intake frequency: a few times a month Coding Level of Care Code Est Patient Level 1 Diagnoses Current use of anticoagulant therapy Z79.01 Results AMB INR Fingerstick AMB INR Fingerstick 2.3 Last Edit by Janet Deng RN on 09/23/24 08:47 interface delay Assessment & Plan Assessment & Plan (1) Current use of anticoagulant therapy: Code(s): 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
[2024-09-23 08:53] LABS: Prothrombin Time Whole Bld POC 27.5 sec (11.1-13.5); ~PT, ~INR - Anti Coag Clinic 2.3 (0.9-1.1)
== END 2024-09-23 08:53 | disposition home or self-care (01) ==
LOC: HO.ACS 08:15
PROVIDERS: PCP Internal Medicine; Visit Provider Internal Medicine
DX: Z79.01 Long term (current) use of anticoagulants (principal)

== ENCOUNTER → 2024-09-23 08:15 | Outpatient (BNVA) | payer MEDICARE, SELFPAY | PROVIDERS: PCP Internal Medicine; Visit Provider Internal Medicine | DX: Z95.2 Presence of prosthetic heart valve (principal); Z79.01 Long term (current) use of anticoagulants; Z51.81 Encounter for therapeutic drug level monitoring | CPT/HCPCS: 85610; 99211 ==

== ENCOUNTER → 2024-09-29 08:35 | Outpatient (BNVA) | payer MEDICARE, SELFPAY | PROVIDERS: PCP Internal Medicine; Visit Provider Internal Medicine Cardiovascular Disease | DX: I42.9 Cardiomyopathy, unspecified (principal); I44.7 Left bundle-branch block, unspecified; I25.10 Atherosclerotic heart disease of native coronary artery without angina pectoris; I11.0 Hypertensive heart disease with heart failure; I50.32 Chronic diastolic (congestive) heart failure; Z95.2 Presence of prosthetic heart valve; Z87.891 Personal history of nicotine dependence; Z95.810 Presence of automatic (implantable) cardiac defibrillator | CPT/HCPCS: 93005; 99212 ==

== ENCOUNTER → 2024-09-29 08:35 | Outpatient (AMB) | payer MEDICARE, SELFPAY ==
--- NOTE | 2024-09-29 08:46 | MHC.OFFVIS ---
Vital Signs 09/29/24 08:48 Height 5 ft 6 in Weight 263 lb 3.711 oz BMI 42.5 BP 140/60 H Blood Pressure Location Lt brachial Position Sitting Pulse 70 Pulse Source Monitor Intake Visit Reasons: 6 mth f/up Intake Note: 6 mth f/up Quality Assurance Monitor Chassis Required: No Accompanied by: Self / Same As Patient Allergies Penicillins [PENICILLINS] Allergy (Severe, Verified 09/23/24 08:36) HIVES Medication List - Last Reconciled 09/29/24 by Timothy Jade MD acetaminophen ER 650 mg PO ONCE atorvastatin 40 mg PO DAILY cane Folding cane please.Use daily due to unsteady on feet and recurrent falls furosemide (Lasix) 40 mg PO DAILY lisinopril 40 mg PO DAILY metoprolol succinate ER 50 mg PO DAILY multivit,calc,rrp-VO-J8-lycop 240 mcg-30 mcg- 300 mcg (One-A-Day Men's Complete) 1 tab PO DAILY warfarin 5 mg See Protocol PO DAILY HPI Comments Details: Pleasant 84-year-old gentleman here for follow-up. He has known history of previous bypass surgery and mechanical aortic valve replacement. He was seen for new onset heart failure and was found to have cardiomyopathy with severely reduced ejection fraction. 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 He was sent for a Bi V AICD placement which happened in February 2019 at [facility] by Dr. Cruz. His repeat echocardiogram in May 2019 showing ejection fraction of 50-55%. It also showed some moderate aortic stenosis and concern for patient prosthesis mismatch. He has chronic right lower extremity edema due to a blood clot in the past. He has been doing well since then. He has no chest discomfort shortness of breath. Clinically not in heart failure. Taking medications regularly. Stable on follow-up. 07/01/22: On follow-up he is doing well. He is sayng he wakes up in the middle night and cannot go back to sleep for few hours. He is saying he does not wake up for shortness of breath or PND. Overall clinically stable. 12/23/22: He returns for follow-up. He has been taking medications regularly. His denying any chest discomfort or significant shortness of breath. No significant orthopnea or PND. He has peripheral edema which is chronic. The right leg is worse than the left due to previous DVT. 04/28/23: He is here for f/u. BP is elevated. He has been doing well. No dyspnea or CP. 09/15/23: He returns for follow-up. He was seen in the office in June by our nurse practitioner. He was complaining of fatigue at that time. He had blood workup done which showed mildly elevated BNP level. He was referred for echocardiography which showed EF 60% with inferior inferolateral wall motion abnormality. Lasix was increased to 80 mg in the morning and 40 in the afternoon. He was only 80 mg once a day previously. He returns and he still has some fatigue. He said he started raking his lawn and has been feeling some barrels and taking them up hill. He is able to do somewhat more over the last week compared to before. He gets some shortness of breath going uphill. He feels tired easily. We discussed about sleep apnea previously because he is overweight. He is not interested in doing sleep study. 03/22/2024: He is here for follow-up. No chest pain or shortness of breath. He gets tired and has to take breaks. He is doing cardiac rehabilitation. Blood pressure well controlled. Chronic lower extremity edema which is stable. 05/31/2024: Tad is back for follow-up. He is saying he has significant arthritis in his knees and was told 10 years ago that he has severe arthritis. More recently he has been getting pains in his hands and shoulders. He said he was using Tylenol up to 2 times a day with some relief but asking whether he can have some better treatment for this. He is on Coumadin. Continues to have lower extremity edema which is chronic. His breathing is at baseline. He is saying that he was in cardiac rehabilitation where the nurses checked his pulse or oxygen level and told him to go to ER. He is unsure whether what exactly happened. We will get some more information from cardiac rehabilitation. 09/29/2024: He is here for follow-up. No chest discomfort. He is saying breathing is stable but he gets tired easily. He has lower extremity edema which has been stable. He is taking Lasix daily. Blood pressure is mildly elevated. His main issue is shoulder and knee pain due to arthritis. He is asking whether physiotherapy will help him. [facility] Medical History Annual physical exam Bilateral knee pain History of bad fall Multiple joint pain Fall on ice Morbid obesity with BMI of 40.0-44.9, adult Cardiomyopathy History of left bundle branch block Hypertension Fatigue Current use of anticoagulant therapy Surgical History History of cardiac cath History of aortic valve replacement Family History Father No problems noted. Mother No problems noted. Social History Alcohol intake: current Alcohol intake frequency: a few times a month Alcohol type: beer Patient Tobacco Use Status: Former Tobacco user Years Smoked: 23 +/- Cognitive needs: No Hearing needs: No Vision needs: No Review of Systems Const Denies chills, Denies fatigue, Denies fever(s), Denies frequent falls, Denies weakness, Denies weight gain and Denies weight loss ENT Denies dizziness Card Denies chest pain, Denies leg edema, Denies lightheadedness, Denies palpitations, Denies dyspnea and Denies dyspnea on exertion Resp Denies cough, Denies dyspnea and Denies dyspnea on exertion GI Denies hematochezia Musc Denies abnormal gait, Denies muscle weakness, Denies numbness, Denies radiating pain into limb and Denies tingling Neuro Denies abnormal gait, Denies dizziness, Denies frequent falls, Denies numbness, Denies tingling and Denies weakness Endo Denies fatigue and Denies palpitations Physical Exam Vital Signs: Last Vital Signs Pulse 70 09/29/24 08:48 BP 140/60 H 09/29/24 08:48 BMI result Body Mass Index 42.5 GENERAL APPEARANCE: in no acute distress, obese. NECK/THYROID: no carotid bruit, no jugular venous distention. SKIN: warm and dry. HEART: no murmurs, regular rate and rhythm, mechanical 2nd heart sound. LUNGS: Fine crackles both bases. ABDOMEN: normal, bowel sounds present, soft, nontender, nondistended. EXTREMITIES: 2+ edema bilaterally right more than left. PERIPHERAL PULSES: equal. NEUROLOGIC: nonfocal, alert and oriented. Office Procedures EKG Details: Atrial since V paced rhythm, QRS duration 134 milliseconds, QTC 444 milliseconds. [id number], Complete Assessment & Plan Assessment & Plan (1) CAD (coronary artery disease): Comment: Status post 4 vessel CABG Code(s): I25.10 - Atherosclerotic heart disease of zuni coronary artery without angina pectoris Category: Medical (2) Essential hypertension: Code(s): I10 - Essential (primary) hypertension Category: Medical (3) ICD (implantable cardioverter-defibrillator) in place: Code(s): Z95.810 - Presence of automatic (implantable) cardiac defibrillator Category: Medical (4) S/P AVR: Code(s): Z95.2 - Presence of prosthetic heart valve Category: Surgical (5) Chronic diastolic CHF (congestive heart failure): Code(s): I50.32 - Chronic diastolic (congestive) heart failure Category: Medical Plan Pleasant 84 year gentleman who has background history of aortic valve replacement with mechanical valve on chronic Coumadin, coronary artery bypass grafting and diastolic heart failure. Clinically in his volume status is stable. He has chronic lower extremity edema which is asymmetric. Continue same dose of diuretics. He is complaining of easy fatigability which I think is related to significant deconditioning due to knee and shoulder arthritis. He has stopped mowing his lawn. 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 I have advised him that physical exercise and activity will help him. He may benefit from physiotherapy. As the weather is changing he is going to walk on a trail near his house. I have also discussed with him about weight loss and he will discuss with his primary care physician about Ozempic or Zepbound for weight loss. Same medications otherwise. Thank you for allowing me to participate in the care of your patient. Please feel free to contact me if you have any questions. Coding Level of Care Code Est Pt Level 4 (43872) Diagnoses CAD (coronary artery disease) I25.10 Essential hypertension I10 ICD (implantable cardioverter-defibrillator) in place Z95.810 S/P AVR Z95.2 Chronic diastolic CHF (congestive heart failure) I50.32 CPT Codes EKG - CPT: 37208-[id number], Complete ([id number])
[2024-09-29 08:48] VITALS: BP 140/60; PULSE 70; BMI 42.5
== END ==
PROVIDERS: PCP Internal Medicine; Visit Provider Internal Medicine Cardiovascular Disease
DX: I25.10 Atherosclerotic heart disease of native coronary artery without angina pectoris (principal); I10 Essential (primary) hypertension; Z95.810 Presence of automatic (implantable) cardiac defibrillator; Z95.2 Presence of prosthetic heart valve; I50.32 Chronic diastolic (congestive) heart failure
CPT/HCPCS: 93010; 99214

== ENCOUNTER 2024-10-07 08:00 | Outpatient (AMB) | payer MEDICARE, SELFPAY ==
[2024-10-07 08:08] LABS: Prothrombin Time Whole Bld POC 25.1 sec (11.1-13.5); ~PT, ~INR - Anti Coag Clinic 2.1 (0.9-1.1)
--- NOTE | 2024-10-07 08:16 | MHC.OFFVISCO ---
Intake Intake Visit Reasons: Anticoagulation Allergies Penicillins [PENICILLINS] Allergy (Severe, Verified 10/07/24 08:02) HIVES Medication List - Last Reconciled 10/07/24 by Janet Deng RN acetaminophen ER 650 mg PO ONCE atorvastatin 40 mg PO DAILY cane Folding cane please.Use daily due to unsteady on feet and recurrent falls furosemide (Lasix) 40 mg PO DAILY lisinopril 40 mg PO DAILY metoprolol succinate ER 50 mg PO DAILY multivit,calc,tkp-JR-K1-lycop 240 mcg-30 mcg- 300 mcg (One-A-Day Men's Complete) 1 tab PO DAILY warfarin 5 mg See Protocol PO DAILY Nursing Note INR: 2.1 in therapeutic range of 2-3 Medications and supplements reviewed No changes in health, diet, medications, or supplements, Denies any signs and symptoms of bleeding or bruising or clotting. Bleeding, bruising, clotting discussed Nutritional guidance given Dose: 2.5mg daily F/U INR: 2 weeks Patient verbalizes understanding of instructions given Anti-Coag Initial Assessment Social Hx Patient Tobacco Use Status: Former Tobacco user alcohol intake: current Alcohol intake frequency: a few times a month Coding Level of Care Code Est Patient Level 1 Diagnoses Current use of anticoagulant therapy Z79.01 Results AMB INR Fingerstick AMB INR Fingerstick 2.1 Last Edit by Janet Deng RN on 10/07/24 08:15 interface delay Assessment & Plan Assessment & Plan (1) Current use of anticoagulant therapy: 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
== END 2024-10-07 08:20 | disposition home or self-care (01) ==
LOC: HO.ACS 08:00
PROVIDERS: PCP Internal Medicine; Visit Provider Internal Medicine Medical Oncology
DX: Z79.01 Long term (current) use of anticoagulants (principal)

== ENCOUNTER → 2024-10-07 08:00 | Outpatient (BNVA) | payer MEDICARE, SELFPAY | PROVIDERS: PCP Internal Medicine; Visit Provider Internal Medicine Medical Oncology | DX: Z95.2 Presence of prosthetic heart valve (principal); Z79.01 Long term (current) use of anticoagulants; Z51.81 Encounter for therapeutic drug level monitoring | CPT/HCPCS: 85610; 99211 ==

== ENCOUNTER 2024-10-21 08:22 | Outpatient (AMB) | payer MEDICARE, SELFPAY ==
[2024-10-21 08:40] LABS: Prothrombin Time Whole Bld POC 20.4 sec (11.1-13.5); ~PT, ~INR - Anti Coag Clinic 1.7 (0.9-1.1)
--- NOTE | 2024-10-21 08:52 | MHC.OFFVISCO ---
Intake Intake Visit Reasons: Anticoagulation Allergies Penicillins [PENICILLINS] Allergy (Severe, Verified 10/21/24 08:32) HIVES Medication List - Last Reconciled 10/21/24 by Destinee Pascal RN acetaminophen ER 650 mg PO ONCE atorvastatin 40 mg PO DAILY cane Folding cane please.Use daily due to unsteady on feet and recurrent falls furosemide (Lasix) 40 mg PO DAILY lisinopril 40 mg PO DAILY metoprolol succinate ER 50 mg PO DAILY multivit,calc,jqe-ER-A1-lycop 240 mcg-30 mcg- 300 mcg (One-A-Day Men's Complete) 1 tab PO DAILY warfarin 5 mg See Protocol PO DAILY Nursing Note INR 1.7 out of therapeutic range Medications and supplements reviewed Patient status: C/O all over body aches especially his knees, walking with cane for stability- enc a walker to help ease the pain, states he only takes 2-3 tylenol / days- he states pain worse at night, he was enc to maybe try 2 tylenol at night and discuss with PCP for options to treat knee pain Medications or supplements: will increase tylenol which can raise the INR Diet: good Denies any signs and symptoms of bleeding or clotting or unusual bruising Bleeding, bruising, clotting discussed Nutritional guidance given: avoid greens today - keep diet the same - taking more tylenol could raise the INR which would be to his favor Dose: 5mg today then resume 2.5mg daily F/U INR Date : 1 week ?? Patient verbalizing understanding of instructions given with read back. Anti-Coag Initial Assessment Social Hx Patient Tobacco Use Status: Former Tobacco user alcohol intake: current Alcohol intake frequency: a few times a month Coding Level of Care Code Est Patient Level 1 Diagnoses Current use of anticoagulant therapy Z79.01 Assessment & Plan Assessment & Plan (1) Current use of anticoagulant therapy: Code(s): Z79.01 - residential (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
== END 2024-10-21 08:56 | disposition home or self-care (01) ==
LOC: HO.ACS 08:22
PROVIDERS: PCP Internal Medicine; Visit Provider Internal Medicine Medical Oncology
DX: Z79.01 Long term (current) use of anticoagulants (principal)

== ENCOUNTER → 2024-10-21 08:22 | Outpatient (BNVA) | payer MEDICARE, SELFPAY | PROVIDERS: PCP Internal Medicine; Visit Provider Internal Medicine Medical Oncology | DX: Z95.2 Presence of prosthetic heart valve (principal); Z51.81 Encounter for therapeutic drug level monitoring; Z79.01 Long term (current) use of anticoagulants | CPT/HCPCS: 85610; 99211 ==

== ENCOUNTER 2024-10-28 08:19 | Outpatient (AMB) | payer MEDICARE, SELFPAY ==
--- NOTE | 2024-10-28 08:25 | MHC.OFFVISCO ---
Intake Intake Visit Reasons: Anticoagulation Allergies Penicillins [PENICILLINS] Allergy (Severe, Verified 10/28/24 08:20) HIVES Medication List - Last Reconciled 10/28/24 by Angela Cameron RN acetaminophen ER 650 mg PO ONCE atorvastatin 40 mg PO DAILY cane Folding cane please.Use daily due to unsteady on feet and recurrent falls furosemide (Lasix) 40 mg orally 2 tablets in the am and 1 tablet in the pm; 90 days lisinopril 40 mg PO DAILY metoprolol succinate ER 50 mg PO DAILY multivit,calc,dad-BY-N4-lycop 240 mcg-30 mcg- 300 mcg (One-A-Day Men's Complete) 1 tab PO DAILY warfarin 5 mg See Protocol PO DAILY Nursing Note INR: 2.5- in therapeutic range of 2-3 Medications and supplements reviewed No changes in health, diet, medications, or supplements, Denies any signs and symptoms of bleeding or bruising or clotting. Bleeding, bruising, clotting discussed Nutritional guidance given Dose: 2.5mg x 7 F/U INR: 2 weeks Patient verbalizes understanding of instructions given pt amb with cane. c.o bilat knee pain, cont with knee pain, aware will raise inr with increased tylenol usage, will eat an extra green Anti-Coag Initial Assessment Social Hx Patient Tobacco Use Status: Former Tobacco user alcohol intake: current Alcohol intake frequency: a few times a month Coding Level of Care Code Est Patient Level 1 Diagnoses Current use of anticoagulant therapy Z79.01 Assessment & Plan Assessment & Plan (1) Current use of anticoagulant therapy: Code(s): Z79.01 - senior living (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
[2024-10-28 08:26] LABS: Prothrombin Time Whole Bld POC 30.5 sec (11.1-13.5); ~PT, ~INR - Anti Coag Clinic 2.5 (0.9-1.1)
== END 2024-10-28 08:32 | disposition home or self-care (01) ==
LOC: HO.ACS 08:19
PROVIDERS: PCP Internal Medicine; Visit Provider Internal Medicine Medical Oncology
DX: Z79.01 Long term (current) use of anticoagulants (principal)

== ENCOUNTER → 2024-10-28 08:19 | Outpatient (BNVA) | payer MEDICARE, SELFPAY | PROVIDERS: PCP Internal Medicine; Visit Provider Internal Medicine Medical Oncology | DX: Z95.2 Presence of prosthetic heart valve (principal); Z79.01 Long term (current) use of anticoagulants; Z51.81 Encounter for therapeutic drug level monitoring | CPT/HCPCS: 85610; 99211 ==

== ENCOUNTER 2024-11-12 08:14 | Outpatient (AMB) | payer MEDICARE, SELFPAY ==
[2024-11-12 08:31] LABS: Prothrombin Time Whole Bld POC 19.7 sec (11.1-13.5); ~PT, ~INR - Anti Coag Clinic 1.6 (0.9-1.1)
--- NOTE | 2024-11-12 08:37 | MHC.OFFVISCO ---
Intake Intake Visit Reasons: Anticoagulation Allergies Penicillins [PENICILLINS] Allergy (Severe, Verified 11/12/24 08:26) HIVES Medication List - Last Reconciled 11/12/24 by Janet Deng, RN acetaminophen ER 650 mg PO ONCE atorvastatin 40 mg PO DAILY cane Folding cane please.Use daily due to unsteady on feet and recurrent falls furosemide (Lasix) 40 mg orally 2 tablets in the am and 1 tablet in the pm; 90 days lisinopril 40 mg PO DAILY meloxicam 15 mg PO DAILY metoprolol succinate ER 50 mg PO DAILY multivit,calc,kyq-LL-D1-lycop 240 mcg-30 mcg- 300 mcg (One-A-Day Men's Complete) 1 tab PO DAILY warfarin 5 mg See Protocol PO DAILY Nursing Note INR: 1.6 out of therapeutic range of 2-3 Pt denies missed dose Medications and supplements reviewed Patient status: no changes, Medications or supplements: started on meloxicam for osteoarthritis. educated pt that this can be irritating to his stomach and can increase the risk of bleeding. He will take it when he needs it most which is at bedtime. Diet: usual diet Denies any signs and symptoms of bleeding or clotting or unusual bruising Bleeding, bruising, clotting discussed Nutritional guidance given: to avoid greens. Food list discussed and pt will focus on foods that raise the INR. Dose: increase today's dose to 5mg then resume 2.5mg daily F/U INR Date: 1 week?? Patient verbalizing understanding of instructions given. 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
== END 2024-11-12 08:43 | disposition home or self-care (01) ==
LOC: HO.ACS 08:14
PROVIDERS: PCP Internal Medicine; Visit Provider Internal Medicine Medical Oncology
DX: Z79.01 Long term (current) use of anticoagulants (principal)

== ENCOUNTER → 2024-11-12 08:14 | Outpatient (BNVA) | payer MEDICARE, SELFPAY | PROVIDERS: PCP Internal Medicine; Visit Provider Internal Medicine Medical Oncology | DX: Z95.2 Presence of prosthetic heart valve (principal); Z79.01 Long term (current) use of anticoagulants; Z51.81 Encounter for therapeutic drug level monitoring | CPT/HCPCS: 85610; 99211 ==

== ENCOUNTER 2024-11-18 08:15 | Outpatient (AMB) | payer MEDICARE, SELFPAY ==
[2024-11-18 08:24] LABS: Prothrombin Time Whole Bld POC 34.6 sec (11.1-13.5); ~PT, ~INR - Anti Coag Clinic 2.9 (0.9-1.1)
--- NOTE | 2024-11-18 08:35 | MHC.OFFVISCO ---
Intake Intake Visit Reasons: Anticoagulation Allergies Penicillins [PENICILLINS] Allergy (Severe, Verified 11/18/24 08:19) HIVES Medication List - Last Reconciled 11/18/24 by Janet Deng, GOVIND acetaminophen ER 650 mg PO ONCE atorvastatin 40 mg PO DAILY cane Folding cane please.Use daily due to unsteady on feet and recurrent falls furosemide (Lasix) 40 mg orally 2 tablets in the am and 1 tablet in the pm; 90 days lisinopril 40 mg PO DAILY meloxicam 15 mg PO DAILY metoprolol succinate ER 50 mg PO DAILY multivit,calc,hsd-IW-E7-lycop 240 mcg-30 mcg- 300 mcg (One-A-Day Men's Complete) 1 tab PO DAILY warfarin 5 mg See Protocol PO DAILY Nursing Note INR: 2.9 in therapeutic range of 2-3 Medications and supplements reviewed No changes in health, diet, medications, or supplements, Denies any signs and symptoms of bleeding or bruising or clotting. Bleeding, bruising, clotting discussed Nutritional guidance given Dose: 2.5mg daily F/U INR: 2 weeks Patient verbalizes understanding of instructions given Anti-Coag Initial Assessment Social Hx Patient Tobacco Use Status: Former Tobacco user alcohol intake: current Alcohol intake frequency: a few times a month Coding Level of Care Code Est Patient Level 1 Diagnoses Current use of anticoagulant therapy Z79.01 Assessment & Plan Assessment & Plan (1) Current use of anticoagulant therapy: Code(s): Z79.01 - intermediate (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
== END 2024-11-18 08:41 | disposition home or self-care (01) ==
LOC: HO.ACS 08:15
PROVIDERS: PCP Internal Medicine; Visit Provider Internal Medicine Medical Oncology
DX: Z79.01 Long term (current) use of anticoagulants (principal)

== ENCOUNTER → 2024-11-18 08:15 | Outpatient (BNVA) | payer MEDICARE, SELFPAY | PROVIDERS: PCP Internal Medicine; Visit Provider Internal Medicine Medical Oncology | DX: Z95.2 Presence of prosthetic heart valve (principal); Z79.01 Long term (current) use of anticoagulants; Z51.81 Encounter for therapeutic drug level monitoring | CPT/HCPCS: 85610; 99211 ==

== ENCOUNTER → 2024-11-22 23:59 | Outpatient (BNV) | payer MEDICARE, SELFPAY ==
--- NOTE | 2024-11-26 10:56 | MHC.OFFVIS ---
Intake Visit Reasons: Remote ICD check- [facility] Allergies Penicillins [PENICILLINS] Allergy (Severe, Verified 11/18/24 08:19) HIVES [facility] Medical History (Updated 11/02/24 @ 17:02 by Irish Jones PA-C) Arthritis Annual physical exam Bilateral knee pain History of bad fall Multiple joint pain Fall on ice Morbid obesity with BMI of 40.0-44.9, adult Cardiomyopathy History of left bundle branch block Hypertension Fatigue Current use of anticoagulant therapy Surgical History History of cardiac cath History of aortic valve replacement Family History Father No problems noted. Mother No problems noted. 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 [id number] Cardiac Device Interrogation, pacemaker or defibrillator Procedure code (CPT) selection complete Assessment & Plan Assessment & Plan (1) Cardiomyopathy: Code(s): I42.9 - Cardiomyopathy, unspecified Category: Medical Plan Coding Level of Care Code Procedure Only Diagnoses Cardiomyopathy I42.9 CPT Codes Cardiac Device Check - Cardiac Device 14: [id number] Cardiac Device Interrogation, pacemaker or defibrillator ([id number])
== END ==
PROVIDERS: PCP Internal Medicine; Visit Provider Internal Medicine Cardiovascular Disease
DX: I42.9 Cardiomyopathy, unspecified (principal); Z95.810 Presence of automatic (implantable) cardiac defibrillator
CPT/HCPCS: 93295

== ENCOUNTER 2024-12-02 08:06 | Outpatient (AMB) | payer MEDICARE, SELFPAY ==
[2024-12-02 08:37] LABS: Prothrombin Time Whole Bld POC 16.7 sec (11.1-13.5); ~PT, ~INR - Anti Coag Clinic 1.4 (0.9-1.1)
--- NOTE | 2024-12-02 08:38 | MHC.OFFVISCO ---
Intake Intake Visit Reasons: Anticoagulation Allergies Penicillins (PENICILLINS) Allergy (Severe, Verified 12/02/24 08:21) HIVES Medication List - Last Reconciled 12/02/24 by Destinee Pascal RN acetaminophen ER 650 mg PO ONCE atorvastatin 40 mg PO DAILY cane Folding cane please.Use daily due to unsteady on feet and recurrent falls cyclobenzaprine 10 mg PO Q8H furosemide (Lasix) 40 mg orally 2 tablets in the am and 1 tablet in the pm; 90 days lisinopril 40 mg PO DAILY metoprolol succinate ER 50 mg PO DAILY multivit,calc,fcv-PJ-N7-lycop 240 mcg-30 mcg- 300 mcg (One-A-Day Men's Complete) 1 tab PO DAILY warfarin 5 mg See Protocol PO DAILY Nursing Note INR 1.4 out of therapeutic range 2.0-3.0 for Aortic Mechanical Valve Medications and supplements reviewed- denies missed doses of warfarin Patient status: States he ate a huge steak few days ago, ate a bag of chips few days ago- hands are swollen - he was enc to avoid foods like chips Medications or supplements: no changes at this time - he stated he was going to take meloxicam but he stated his MD stated it was too dangerous for him and d/cd it May not have had usual beers Taking tylenol for knee pain Diet: good Denies any signs and symptoms of bleeding or clotting or unusual bruising Bleeding, bruising, clotting discussed Nutritional guidance given: avoid greens x 2 days, eat orange and reds to help raise the INR Dose: 5mg now then 5mg x 1 day/ 2.5mg x 6 days F/U INR Date : 4 days ?? Patient verbalizing understanding of instructions given. 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
== END 2024-12-02 08:47 | disposition home or self-care (01) ==
LOC: HO.ACS 08:06
PROVIDERS: PCP Internal Medicine; Visit Provider Internal Medicine Medical Oncology
DX: Z79.01 Long term (current) use of anticoagulants (principal)

== ENCOUNTER → 2024-12-02 08:06 | Outpatient (BNVA) | payer MEDICARE, SELFPAY | PROVIDERS: PCP Internal Medicine; Visit Provider Internal Medicine Medical Oncology | DX: Z95.2 Presence of prosthetic heart valve (principal); Z79.01 Long term (current) use of anticoagulants; Z51.81 Encounter for therapeutic drug level monitoring | CPT/HCPCS: 85610; 99211 ==

== ENCOUNTER 2024-12-06 08:36 | Outpatient (AMB) | payer MEDICARE, SELFPAY ==
[2024-12-06 08:53] LABS: Prothrombin Time Whole Bld POC 20.4 sec (11.1-13.5); ~PT, ~INR - Anti Coag Clinic 1.7 (0.9-1.1)
--- NOTE | 2024-12-06 09:06 | MHC.OFFVISCO ---
Intake Intake Visit Reasons: Anticoagulation Allergies Penicillins (PENICILLINS) Allergy (Severe, Verified 12/06/24 08:47) HIVES Medication List - Last Reconciled 12/06/24 by Destinee Pascal RN acetaminophen ER 650 mg PO ONCE atorvastatin 40 mg PO DAILY cane Folding cane please.Use daily due to unsteady on feet and recurrent falls cyclobenzaprine 10 mg PO Q8H furosemide (Lasix) 40 mg orally 2 tablets in the am and 1 tablet in the pm; 90 days lisinopril 40 mg PO DAILY metoprolol succinate ER 50 mg PO DAILY multivit,calc,wnk-GB-E1-lycop 240 mcg-30 mcg- 300 mcg (One-A-Day Men's Complete) 1 tab PO DAILY warfarin 5 mg See Protocol PO DAILY Nursing Note INR 1.7 out of therapeutic range Medications and supplements reviewed Patient status: C/O bilat Knee pain has an appt with rheumatology in august 2025 - ortho called by this RN - has an appt 02/24/25 to assess knees and possible injection Medications or supplements: off meloxacam for heart and was given muscle rleaxer - states it does not help Diet: no changes- has not had ETOH for months Denies any signs and symptoms of bleeding or clotting or unusual bruising Bleeding, bruising, clotting discussed Nutritional guidance given: eat orange and reds to help raise the INR, no greens x 2 days Dose: increase to 5mg x 2 days / 2.5mg x 5 days F/U INR Date: 1 week ?? Patient verbalizing understanding of instructions given. Anti-Coag Initial Assessment Social Hx Patient Tobacco Use Status: Former Tobacco user alcohol intake: current Alcohol intake frequency: a few times a month Coding Level of Care Code Est Patient Level 1 Diagnoses Current use of anticoagulant therapy Z79.01 Results AMB INR Fingerstick AMB INR Fingerstick 1.7 Last Edit by Destinee Pascal RN on 12/06/24 08:53 manual entry Assessment & Plan Assessment & Plan (1) Current use of anticoagulant therapy: Code(s): Z79.01 - [facility] (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
== END 2024-12-06 09:11 | disposition home or self-care (01) ==
LOC: HO.ACS 08:36
PROVIDERS: PCP Internal Medicine; Visit Provider Internal Medicine Medical Oncology
DX: Z79.01 Long term (current) use of anticoagulants (principal)

== ENCOUNTER → 2024-12-06 08:36 | Outpatient (BNVA) | payer MEDICARE, SELFPAY | PROVIDERS: PCP Internal Medicine; Visit Provider Internal Medicine Medical Oncology | DX: Z95.2 Presence of prosthetic heart valve (principal); Z79.01 Long term (current) use of anticoagulants; Z51.81 Encounter for therapeutic drug level monitoring | CPT/HCPCS: 85610; 99211 ==

== ENCOUNTER 2024-12-14 10:18 | Outpatient (AMB) | payer MEDICARE, SELFPAY ==
--- NOTE | 2024-12-14 10:27 | MHC.OFFVISCO ---
Intake Intake Visit Reasons: Anticoagulation Allergies Penicillins (PENICILLINS) Allergy (Severe, Verified 12/14/24 10:22) HIVES Medication List - Last Reconciled 12/14/24 by Angela Cameron RN acetaminophen ER 650 mg PO ONCE atorvastatin 40 mg PO DAILY cane Folding cane please.Use daily due to unsteady on feet and recurrent falls cyclobenzaprine 10 mg PO Q8H furosemide (Lasix) 40 mg orally 2 tablets in the am and 1 tablet in the pm; 90 days lisinopril 40 mg PO DAILY metoprolol succinate ER 50 mg PO DAILY multivit,calc,jbp-RX-S3-lycop 240 mcg-30 mcg- 300 mcg (One-A-Day Men's Complete) 1 tab PO DAILY warfarin 5 mg See Protocol PO DAILY Nursing Note INR: 2.2- in therapeutic range 2-3 Medications and supplements reviewed- no changes No changes in health, diet, medications, or supplements, Denies any signs and symptoms of bleeding or bruising or clotting. 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
[2024-12-14 10:28] LABS: Prothrombin Time Whole Bld POC 26.7 sec (11.1-13.5); ~PT, ~INR - Anti Coag Clinic 2.2 (0.9-1.1)
== END 2024-12-14 10:36 | disposition home or self-care (01) ==
LOC: HO.ACS 10:18
PROVIDERS: PCP Internal Medicine; Visit Provider Internal Medicine Medical Oncology
DX: Z79.01 Long term (current) use of anticoagulants (principal)

== ENCOUNTER → 2024-12-14 10:18 | Outpatient (BNVA) | payer MEDICARE, SELFPAY | PROVIDERS: PCP Internal Medicine; Visit Provider Internal Medicine Medical Oncology | DX: Z51.81 Encounter for therapeutic drug level monitoring (principal); Z79.01 Long term (current) use of anticoagulants | CPT/HCPCS: 85610; 99211 ==

== ENCOUNTER 2024-12-16 09:20 | Outpatient (AMB) | payer MEDICARE, SELFPAY ==
--- NOTE | 2024-12-16 09:23 | MHC.PC.OV ---
Vital Signs 12/16/24 09:24 Height 5 ft 6 in Weight 259 lb 6 oz BMI 41.9 BP 138/80 Blood Pressure Location Rt brachial Position Sitting Respiration 16 Pulse 72 Pulse Source Pulse Oximeter Temp 97.8 F Temp Source Temporal Artery Scan Pulse Oximetry (%) 95 Oxygen Delivery Method Room Air Intake Visit Reasons: 3 month f/u Intake Note: no issues Environmental Health Specialist Required: No Accompanied by: Self / Same As Patient Allergies Penicillins (PENICILLINS) Allergy (Severe, Verified 12/16/24 09:54) HIVES Medication List - Last Reconciled 12/16/24 by Irish Jones PA-C acetaminophen ER 650 mg PO ONCE atorvastatin 40 mg PO DAILY cane Folding cane please.Use daily due to unsteady on feet and recurrent falls cyclobenzaprine 10 mg PO Q8H furosemide (Lasix) 40 mg orally 2 tablets in the am and 1 tablet in the pm; 90 days lisinopril 40 mg PO DAILY metoprolol succinate ER 50 mg PO DAILY multivit,calc,rwo-VL-D8-lycop 240 mcg-30 mcg- 300 mcg (One-A-Day Men's Complete) 1 tab PO DAILY warfarin 5 mg See Protocol PO DAILY Tobacco use date assessed: 09/07/24 Fall risk assessment: 1 Fall in past year Last assessed Fall Risk: 12/16/24 Dental Screening Dental Screen Date: 12/16/24 Did you have a dental visit in the last 12 months?: Yes Did you have a dental problem in the last 6 months where you did not have access to dental care?: No Was dental information given to patient?: Patient has dentist HPI 3 month f/u HPI Details The patient is an 84-year-old male presenting for a three-month follow-up visit. He reports significant swelling in his legs, which has been a persistent issue. The patient has a history of thrombosis, with initial occurrence in 2003 and a subsequent episode in 2005, both managed with anticoagulation therapy. The patient is currently on warfarin and furosemide for management of his conditions. He takes 40 mg of furosemide in the morning and 20 mg at night. Additionally, he is on atorvastatin for hyperlipidemia and reports adherence to his medication regimen. The patient has been experiencing joint and muscle pains, for which he has been using cyclobenzaprine, a muscle relaxant, and Tylenol for pain relief. He reports difficulty in determining the effectiveness of these medications due to the complexity of his medication regimen. The patient has a history of chronic anemia, identified in August, with hemoglobin and hematocrit levels slightly below normal. His kidney function tests were normal, and his fasting glucose and A1c levels indicated good glycemic control. His total bilirubin was slightly elevated, which was not considered significant. [facility] Medical History (Updated 12/16/24 @ 10:02 by Irish Jones PA-C) Chronic anemia Peripheral edema Arthritis Annual physical exam Bilateral knee pain History of bad fall Multiple joint pain Fall on ice Morbid obesity with BMI of 40.0-44.9, adult Cardiomyopathy History of left bundle branch block Hypertension Fatigue Current use of anticoagulant therapy Surgical History History of cardiac cath History of aortic valve replacement Family History Father Kidney problem Mother Cancer Social History Housing: House Alcohol intake: current Alcohol intake frequency: a few times a month Alcohol type: beer Patient Tobacco Use Status: Former Tobacco user Years Smoked: 23 +/- service: No Current occupational status: retired Cognitive needs: Yes (cane) Hearing needs: No Vision needs: Yes (reading glasses) Questionnaire PHQ-9 Over the last 2 weeks, how often have you been bothered by any of the following problems? 1. Little interest or pleasure in doing things: not at all 2. Feeling down, depressed, or hopeless: not at all 3. Trouble falling or staying asleep, or sleeping too much: nearly every day (only because on Lasix and is always having to get up to urinate but not related to depression ) 4. Feeling tired or having little energy: nearly every day (only because on Lasix and is always having to get up to urinate but not related to depression) 5. Poor appetite or overeating: not at all 6. Feeling bad about yourself - or that you are a failure or have let yourself or your family down: not at all 7. Trouble concentrating on things, such as reading the newspaper or watching television: not at all 8. Moving or speaking so slowly that other people could have noticed. Or the opposite - being so fidgety or restless that you have been moving around a lot more than usual: not at all 9. Thoughts that you would be better off or of hurting yourself in some way: not at all Total score: 6 Depression Screening Interpretation: Positive Depression Screening Follow-up: Existing condition Depression Screening Done: Yes 04490 - PHQ-9 Billing: Yes Source: Developed by Drs. Rc Duncan, Martha Brooks, Ryan Kramer and colleagues, with an educational casper from [employer]. AUDIT C Alcohol Use Questionnaire (AUDIT-C) 1. How often do you have a drink containing alcohol?: 2-4 times a month 2. How many drinks containing alcohol do you have on a typical day when you are drinking?: 1 or 2 3. How often do you have six or more drinks on one occasion?: Never Total Score: 2 Score Reviewed/Action Taken: No GUNNER-7 AMB Questionnaire GUNNER-7 Date GUNNER - 7 assessed: 09/07/24 Feeling nervous, anxious, or on edge: 0 = Not at all Not being able to stop or control worryin = Not at all Worrying too much about different things: 0 = Not at all Trouble relaxin = Not at all Being so restless that it is hard to sit still: 0 = Not at all Becoming easily annoyed or irritable: 0 = Not at all Feeling afraid as if something awful might happen: 0 = Not at all Total GUNNER-7 score (0-4 normal; 5-9 mild; 10-14 moderate; 15-21 severe): 0 Source: Developed by Drs. Rc Duncan, Martha Brooks, Ryan Kramer and colleagues, with an educational casper from [employer]. GUNNER-7 Assessment Billing GUNNER-7 Assessment Tool: GUNNER-7 Assessment 77486 Review of Systems Const Details: - Cardiovascular: Denies chest pain, denies shortness of breath, no recent falls. - Genitourinary: Denies dysuria, reports increased urination due to diuretic use. Physical exam (Primary Care) Vital Signs: Last Vital Signs Temp 97.8 F 12/16/24 09:24 Pulse 72 12/16/24 09:24 Resp 16 12/16/24 09:24 BP 138/80 12/16/24 09:24 Pulse Ox 95 07/03/25 09:24 Oxygen Delivery Method Room Air 12/16/24 09:24 Care Plan Goal for BP management: <140/90 at Goal BMI result Body Mass Index 41.9 BMI Assessment/Plan discussion: High BMI High, discussed plan: lifestyle, weight reduction, dietary, physical activity and alcohol moderation Tobacco/Smoking Status: Tobacco use Status Tobacco use date assessed 09/07/24 12/16/24 09:40 Patient Tobacco Use Status Former Tobacco user 12/16/24 09:40 PHQ-9: PHQ-9 Score PHQ-9: Total score 6 12/16/24 09:40 Depression Screening Interpretation: Positive Depression Screening Follow-up: Existing condition Const Other: Appearance: Alert. Oriented X3. No acute distress. Head: Normal external exam. Normocephalic. Atraumatic. Eyes: Pupils are equal, round, and reactive to light. Extraocular movements intact. Conjunctiva and sclera normal. Eyelids normal. Throat: Pharynx normal. Uvula midline. Moist mucous membranes. Neck: Normal inspection. Neck supple. Full range of motion. Cardiovascular: Normal heart rate and rhythm. Heart sound normal. Pulses normal throughout. Respiratory: No respiratory distress. Painless inspiration. Back: Full range of motion noted. Skin: Skin warm and dry. Normal skin color. Normal skin turgor. No rashes/lesions/lacerations noted. Extremities: Extremities exhibit normal range of motion. Extremities nontender. Bilateral lower extremity edema. No calf tenderness is noted at this time. Neuro: Oriented X 3. Normal steady gait utilizing cane moving all extremities. Results Reviewed Results Reviewed: - Labs: Hemoglobin 13.8 g/dL, Hematocrit 41.1%, Total bilirubin 1.1 mg/dL, Fasting glucose 111 mg/dL, A1c 5.5% Coding Level of Care Code Est Pt Level 4 (40693) Complex EM visit Add On G2211 Diagnoses Chronic diastolic CHF (congestive heart failure) I50.32 DVT (deep venous thrombosis) I82.409 Chronic anemia D64.9 Hyperlipidemia E78.5 Essential hypertension I10 Additional Codes GUNNER-7 Assessment Billing - GUNNER-7 Assessment Tool: GUNNER-7 Assessment 19598 ([id number]) PHQ-9 - 53307 - PHQ-9 Billing: Yes ([id number]) Assessment & Plan Assessment & Plan (1) Chronic diastolic CHF (congestive heart failure): Code(s): I50.32 - Chronic diastolic (congestive) heart failure Category: Medical Plan: The patient is experiencing peripheral edema, likely related to his history of CHF/thrombosis and current medication regimen. He is currently on furosemide to manage fluid retention, taking 40 mg in the morning and 20 mg at night. Continued monitoring of edema and adjustment of diuretic therapy may be necessary based on symptom progression. Patient to continue being followed by Cardiology. Condition is chronic and stable continue to monitor. (2) DVT (deep venous thrombosis): Code(s): I82.409 - Acute embolism and thrombosis of unspecified deep veins of unspecified lower extremity Category: Medical Plan: The patient has a history of thrombosis, with episodes in 2003 and 2005, managed with anticoagulation therapy. He is currently on warfarin for anticoagulation, and regular INR monitoring is essential to ensure therapeutic levels. Condition is chronic and stable will continue to monitor INR at baseline/therapeutic level 2.2 obtained on 12/14/2024. (3) Chronic anemia: Code(s): D64.9 - Anemia, unspecified Category: Medical Plan: The patient has chronic anemia, with hemoglobin and hematocrit levels slightly below normal. Further evaluation may be necessary to determine the underlying cause and appropriate management. Condition is chronic and stable. (4) Hyperlipidemia: Code(s): E78.5 - Hyperlipidemia, unspecified Category: Medical Plan: The patient is on atorvastatin for hyperlipidemia management. Continued adherence to medication and monitoring of lipid levels are recommended. Condition is chronic and stable will continue to monitor. (5) Essential hypertension: Code(s): I10 - Essential (primary) hypertension Category: Medical Plan: The patient is on lisinopril and metoprolol for hypertension management. Blood pressure is currently well-controlled, and continued monitoring is advised. Condition is chronic and stable will continue to monitor. Plan Plan Patient was informed and verbally consented to the use of an ambient scribe for clinic note documentation during this visit. 1. Peripheral Edema The patient is experiencing peripheral edema, likely related to his history of thrombosis and current medication regimen. He is currently on furosemide to manage fluid retention, taking 40 mg in the morning and 20 mg at night. Continued monitoring of edema and adjustment of diuretic therapy may be necessary based on symptom progression. 2. History Of Thrombosis The patient has a history of thrombosis, with episodes in 2003 and 2005, managed with anticoagulation therapy. He is currently on warfarin for anticoagulation, and regular INR monitoring is essential to ensure therapeutic levels. 3. Chronic Anemia The patient has chronic anemia, with hemoglobin and hematocrit levels slightly below normal. Further evaluation may be necessary to determine the underlying cause and appropriate management. 4. Hyperlipidemia The patient is on atorvastatin for hyperlipidemia management. Continued adherence to medication and monitoring of lipid levels are recommended. 5. Hypertension The patient is on lisinopril and metoprolol for hypertension management. Blood pressure is currently well-controlled, and continued monitoring is advised. 6. Preventative care The patient's kidney function tests are currently normal, but ongoing monitoring is necessary due to his chronic conditions. During the visit, we discussed the management of peripheral edema, emphasizing the importance of adherence to diuretic therapy and monitoring for changes in symptoms. We reviewed the patient's history of thrombosis and the necessity of regular INR checks while on warfarin. The patient was advised to continue his current regimen for hyperlipidemia and hypertension, with regular follow-up to assess control. We also discussed the slight elevation in bilirubin and the need for ongoing monitoring of kidney function. Patient Instructions: - Continue taking prescribed medications as directed. - Monitor for any changes in swelling or other symptoms and report them promptly. - Attend regular follow-up appointments for blood work and INR checks. - Maintain a balanced diet and exercise as tolerated.
[2024-12-16 09:24] VITALS: BP 138/80; PULSE 72; RESP 16; TEMP 36.6; O2SAT 95; BMI 41.9
== END 2024-12-16 09:52 | disposition home or self-care (01) ==
LOC: HO.HMCSH 09:20
PROVIDERS: PCP Internal Medicine; Visit Provider Physician Assistant Medical
DX: I50.32 Chronic diastolic (congestive) heart failure (principal); I82.409 Acute embolism and thrombosis of unspecified deep veins of unspecified lower extremity; D64.9 Anemia, unspecified; E78.5 Hyperlipidemia, unspecified; I10 Essential (primary) hypertension

== ENCOUNTER → 2024-12-16 09:20 | Outpatient (BNVA) | payer MEDICARE, SELFPAY | PROVIDERS: PCP Internal Medicine; Visit Provider Physician Assistant Medical | DX: I50.32 Chronic diastolic (congestive) heart failure (principal); D64.9 Anemia, unspecified; E78.5 Hyperlipidemia, unspecified; I10 Essential (primary) hypertension; Z86.718 Personal history of other venous thrombosis and embolism | CPT/HCPCS: 96127; 99212 ==

== ENCOUNTER 2024-12-28 07:50 | Outpatient (AMB) | payer MEDICARE, SELFPAY ==
--- NOTE | 2024-12-28 08:07 | MHC.OFFVISCO ---
Intake Intake Visit Reasons: Anticoagulation Allergies Penicillins (PENICILLINS) Allergy (Severe, Verified 12/28/24 08:02) HIVES Medication List - Last Reconciled 12/28/24 by Angela Cameron RN acetaminophen ER 650 mg PO ONCE atorvastatin 40 mg PO DAILY cane Folding cane please.Use daily due to unsteady on feet and recurrent falls cyclobenzaprine 10 mg PO Q8H furosemide (Lasix) 40 mg orally 2 tablets in the am and 1 tablet in the pm; 90 days lisinopril 40 mg PO DAILY metoprolol succinate ER 50 mg PO DAILY multivit,calc,iux-SA-U6-lycop 240 mcg-30 mcg- 300 mcg (One-A-Day Men's Complete) 1 tab PO DAILY warfarin 5 mg See Protocol PO DAILY Nursing Note INR: 2.3- in therapeutic range 2-3 Medications and supplements reviewed- no changes No changes in health, diet, medications, or supplements, Denies any signs and symptoms of bleeding or bruising or clotting. Bleeding, bruising, clotting discussed Nutritional guidance given Dose: 5mg x 2, 2.5mg x 5 F/U INR: 2 weeks Patient verbalizes understanding of instructions given no cranberry for severaL days pt with c.o lower extrem pain, upcoming ortho appt Anti-Coag Initial Assessment Social Hx Patient Tobacco Use Status: Former Tobacco user alcohol intake: current Alcohol intake frequency: a few times a month Coding Level of Care Code Est Patient Level 1 Diagnoses Current use of anticoagulant therapy Z79.01 Results AMB INR Fingerstick AMB INR Fingerstick 2.3 Last Edit by Angela Cameron RN on 12/28/24 08:09 interface delay Assessment & Plan Assessment & Plan (1) Current use of anticoagulant therapy: Code(s): Z79.01 - correction (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
[2024-12-28 08:17] LABS: Prothrombin Time Whole Bld POC 28.1 sec (11.1-13.5); ~PT, ~INR - Anti Coag Clinic 2.3 (0.9-1.1)
== END 2024-12-28 08:16 | disposition home or self-care (01) ==
LOC: HO.ACS 07:50
PROVIDERS: PCP Internal Medicine; Visit Provider Internal Medicine Medical Oncology
DX: Z79.01 Long term (current) use of anticoagulants (principal)

== ENCOUNTER → 2024-12-28 07:50 | Outpatient (BNVA) | payer MEDICARE, SELFPAY | PROVIDERS: PCP Internal Medicine; Visit Provider Internal Medicine Medical Oncology | DX: Z95.2 Presence of prosthetic heart valve (principal); Z79.01 Long term (current) use of anticoagulants; Z51.81 Encounter for therapeutic drug level monitoring | CPT/HCPCS: 85610; 99211 ==

== ENCOUNTER 2025-01-13 07:47 | Outpatient (AMB) | payer MEDICARE, SELFPAY ==
--- OUTSIDE RECORDS SUMMARY | 2025-01-13 07:50 | XMS_ITS | Encounter Summary ---
Author Organization [facility] Address [address] [place] [id number] Phone Care Team Providers Care Experience Designer Name Role Phone Shadi Sevilla MD Primary Care Provider [phone] Encounter Details Date Type Department Care Team (Late st Contact Info) Description 07/14/2018 Ancillary Orders [facility] [address] [place] [address] Ivan Lopes MD [address] [place] [address] [address] [facility] [place] [address] [email or web address] Social History Tobacco Use Types Packs/Day Years Used Date Smoking Tobacco: Former Cigarettes Q uit: 01/12/2012 Smokeless Tobacco: Never Sex and Gender Information Value Date Recorded Sex Assigned at Not on file Legal Sex Male 10:12 PM EDT Gender Identity Not on file Sexual Orientation Not on file documented as of this encounter Plan of Treatment Not on file documented as of this encounter Visit Diagnoses Not on filedocumented in this encounter Care Teams Experience Designer Relationship Specialty Start Date End Date Shadi Sevilla MD PCP - General 04/03/17 documented as of this encounter Additional Source Comments The information contained in this document represents components of the legal health record. It is not the complete legal health record.[facility]
[2025-01-13 07:53] LABS: Prothrombin Time Whole Bld POC 22.9 sec (11.1-13.5); ~PT, ~INR - Anti Coag Clinic 1.9 (0.9-1.1)
--- NOTE | 2025-01-13 07:57 | MHC.OFFVISCO ---
Intake Intake Visit Reasons: Anticoagulation Allergies Penicillins (PENICILLINS) Allergy (Severe, Verified 01/13/25 07:48) HIVES Medication List - Last Reconciled 01/13/25 by Destinee Pascal RN acetaminophen ER 650 mg PO ONCE atorvastatin 40 mg PO DAILY cane Folding cane please.Use daily due to unsteady on feet and recurrent falls cyclobenzaprine 10 mg PO Q8H furosemide (Lasix) 40 mg orally 2 tablets in the am and 1 tablet in the pm; 90 days lisinopril 40 mg PO DAILY metoprolol succinate ER 50 mg PO DAILY multivit,calc,qob-TK-S6-lycop 240 mcg-30 mcg- 300 mcg (One-A-Day Men's Complete) 1 tab PO DAILY warfarin 5 mg See Protocol PO DAILY Nursing Note INR: 1.9 OUT therapeutic range Medications and supplements reviewed HAS UPCOMING APPT WITH [facility] FOR EDEMA AND ORTHO FOR KNEES Denies any signs and symptoms of bleeding or bruising or clotting. 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
== END 2025-01-13 08:08 | disposition home or self-care (01) ==
LOC: HO.ACS 07:47
PROVIDERS: PCP Internal Medicine; Visit Provider Internal Medicine Medical Oncology
DX: Z79.01 Long term (current) use of anticoagulants (principal)

== ENCOUNTER → 2025-01-13 07:47 | Outpatient (BNVA) | payer MEDICARE, SELFPAY | PROVIDERS: PCP Internal Medicine; Visit Provider Internal Medicine Medical Oncology | DX: Z95.2 Presence of prosthetic heart valve (principal); Z79.01 Long term (current) use of anticoagulants; Z51.81 Encounter for therapeutic drug level monitoring | CPT/HCPCS: 85610; 99211 ==

== ENCOUNTER 2025-01-27 08:32 | Outpatient (AMB) | payer MEDICARE, SELFPAY ==
--- OUTSIDE RECORDS SUMMARY | 2025-01-27 08:44 | XMS_ITS | Encounter Summary ---
Author Organization [facility] Address [address] [place] [address] Phone Care Team Providers Care Senior Net Software Developer Name Role Phone Shadi Sevilla MD Primary Care Provider [phone] Encounter Details Date Type Department Care Team (Late st Contact Info) Description 07/14/2018 Ancillary Orders [facility] [address] [place] [address] Ivan Lopes MD [address] [facility] [place] [address] [email or web address] Social History Tobacco Use Types Packs/Day Years [...] on filedocumented in this encounter Care Teams Senior Net Software Developer Relationship Specialty Start Date End Date Shadi Sevilla MD PCP - General 04/03/17 documented as of this encounter Additional Source Comments The information contained in this document represents components of the legal health record. It is not the complete legal health record.[facility]
[2025-01-27 08:45] LABS: Prothrombin Time Whole Bld POC 23.1 sec (11.1-13.5); ~PT, ~INR - Anti Coag Clinic 1.9 (0.9-1.1)
--- NOTE | 2025-01-27 08:52 | MHC.OFFVISCO ---
Intake Intake Visit Reasons: Anticoagulation Allergies Penicillins (PENICILLINS) Allergy (Severe, Verified 01/27/25 08:36) HIVES Medication List - Last Reconciled 01/27/25 by Janet Deng, GOVIND acetaminophen ER 650 mg PO ONCE atorvastatin 40 mg PO DAILY cane Folding cane please.Use daily due to unsteady on feet and recurrent falls cyclobenzaprine 10 mg PO Q8H furosemide (Lasix) 40 mg orally 2 tablets in the am and 1 tablet in the pm; 90 days lisinopril 40 mg PO DAILY metoprolol succinate ER 50 mg PO DAILY multivit,calc,yce-KU-T1-lycop 240 mcg-30 mcg- 300 mcg (One-A-Day Men's Complete) 1 tab PO DAILY warfarin 5 mg See Protocol PO DAILY Nursing Note INR: 1.9 out of therapeutic range of 2-3 Medications and supplements reviewed No changes in health, diet, medications, or supplements, Denies any signs and symptoms of bleeding or bruising or clotting. 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
== END 2025-01-27 09:05 | disposition home or self-care (01) ==
LOC: HO.ACS 08:32
PROVIDERS: PCP Internal Medicine; Visit Provider Internal Medicine Medical Oncology
DX: Z79.01 Long term (current) use of anticoagulants (principal)

== ENCOUNTER → 2025-01-27 08:32 | Outpatient (BNVA) | payer MEDICARE, SELFPAY | PROVIDERS: PCP Internal Medicine; Visit Provider Internal Medicine Medical Oncology | DX: I83.11 Varicose veins of right lower extremity with inflammation (principal); Z86.718 Personal history of other venous thrombosis and embolism; Z79.01 Long term (current) use of anticoagulants | CPT/HCPCS: 85610; 99202; 99211 ==

== ENCOUNTER 2025-01-27 09:07 | Outpatient (AMB) | payer MEDICARE, SELFPAY ==
--- NOTE | 2025-01-27 09:08 | A.OFFVIS_ITS ---
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 Right LE in 2002 and Left LE in 2004. Right LE swelling is worse w/ discoloration. Does have Left LE weakness as well. Pt states that his swelling reduces when elevated. 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 Compl aints include pain over varicosities, swelling of lower extremities, cramping, fatigue, and heaviness of the lower extremities. It has been affecting there daily activities including walking. It is noted more so in right leg. He attributes a lot of the swelling after an injury where he was a child and had major leg injury when sliding into 2nd base and hitting a pole. Patient denies any previous venous surgery or injections. Patient denies any history of DVT/ PE. Patient denies any history of phlebitis. Trial of compression includes - [id number] They now present for vascular evaluation regarding their varicose veins. [facility] Medical History Leg swelling Chronic anemia Peripheral edema Arthritis Annual physical exam Bilateral knee pain History of bad fall Multiple joint pain Fall on ice Morbid obesity with BMI of 40.0-44.9, adult Cardiomyopathy History of left bundle branch block Hypertension Fatigue Current use of anticoagulant therapy Surgical History History of cardiac cath History of aortic valve replacement Family History Father Kidney problem Mother Cancer Social History Housing: House Alcohol intake: current Alcohol intake frequency: a few times a month Alcohol type: beer Patient Tobacco Use Status: Former Tobacco user Years Smoked: 23 +/- service: No Current occupational status: retired Cognitive needs: Yes (cane) Hearing needs: No Vision needs: Yes (reading glasses) Review of Systems Const Reports as per HPI ENT Reports no additional complaints Card Denies chest pain, Denies chest pain at rest and Denies chest pain with activity Resp Denies chest congestion and Denies cough GI Reports no additional complaints Musc Details: pain over varicosities, aching of lower extremities, swelling, cramping, heaviness and tiredness, itching Denies abnormal gait Skin/Breast Reports pruritus and Denies wounds Neuro Reports no additional complaints and Denies abnormal gait Psych Denies no additional complaints Physical Exam Vital Signs: BMI result Body Mass Index 41.8 Const General: cooperative, healthy appearing and comfortable Orientation/consciousness: oriented to person, oriented to place and oriented to time Neck Carotids: no bruits Chest Chest palpation & inspection: normal inspection of the chest and normal palpation of entire chest wall Resp Effort & Inspection: normal respiratory effort and able to speak in complete sentences Cardio Rate: regular rate Heart sounds: S1 normal heart sound present and S2 normal heart sound present Peripheral pulses: Peripheral pulses 2+ throughout GI Inspection: Yes normal to inspection Skin Other: +2 edema, large rope-like varicosities greater than 4 mm CEAP Classification C4 - skin color changes Ep - Etiology Primary As - superficial veins P - reflux General skin exam: dry skin Neuro General: oriented to person, oriented to place and oriented to time Extrem Right lower extremity: full ROM, normal capillary refill and edema Left lower extremity: full ROM, normal capillary refill and edema Psych Mental Status: mental status grossly normal Assessment & Plan Assessment & Plan (1) Varicose veins of right lower extremity with inflammation: Code(s): I83.11 - Varicose veins of right lower extremity with inflammation Category: Medical Plan: In short, the patient has evidence of venous insufficiency. I have discussed the pathophysiology with the patient. In addition I have provided informational material regarding venous disease to the patient. We have discussed conservative measures including compression, elevation, and exercise. I have also provided a handout regarding appropriate use of compression stockings and where to purchase good compression stockings as well. I have taken the liberty of ordering venous insufficiency testing with the patient. They will follow up with me after testing. The patient had an opportunity to ask questions regarding the treatment plan. All questions were answered. Imaging studies, laboratory studies and physical exam results were discussed and reviewed in detail. No major barriers to understanding were identified. The patient expressed understanding and agreement with the above treatment plan. The patient is aware they should contact our office by phone for worsening of the current condition or the appearance of new symptoms. Thank you for allowing me to participate in the vascular care of this patient. If you have any questions or concerns regarding the treatment for the above condition please do not hesitate to contact me. The office telephone contact is [phone]. This note is constructed using voice recognition software. While every effort has been made to ensure accuracy, hvac installation technician errors may have been included. Thank you for allowing me to participate in the care of your patient. Yours sincerely, Christopher Obrien MD, FACS, R.P.V.I. Orders: Orders US venous duplex LE BI Today I83.11 - Varicose veins of right lower extremity with inflammation Coding Level of Care Code New Pt Level 4 (68463) Diagnoses Varicose veins of right lower extremity with inflammation I83.11
[2025-01-27 09:09] VITALS: BMI 41.8
== END 2025-01-27 09:37 | disposition home or self-care (01) ==
PROVIDERS: PCP Internal Medicine; Visit Provider Surgery Vascular Surgery
DX: I83.11 Varicose veins of right lower extremity with inflammation (principal)
CPT/HCPCS: 99204

== ENCOUNTER 2025-02-07 08:33 | Outpatient (AMB) | payer MEDICARE, SELFPAY ==
--- NOTE | 2025-02-07 08:50 | MHC.OFFVISCO ---
Intake Intake Visit Reasons: Anticoagulation Allergies Penicillins (PENICILLINS) Allergy (Severe, Verified 02/07/25 08:35) HIVES Medication List - Last Reconciled 02/07/25 by Destinee Pascal RN acetaminophen ER 650 mg PO ONCE atorvastatin 40 mg PO DAILY cane Judy cane please.Use daily due to unsteady on feet and recurrent falls cyclobenzaprine 10 mg PO Q8H furosemide (Lasix) 40 mg orally 2 tablets in the am and 1 tablet in the pm; 90 days lisinopril 40 mg PO DAILY metoprolol succinate ER 50 mg PO DAILY multivit,calc,qzw-DQ-Y3-lycop 240 mcg-30 mcg- 300 mcg (One-A-Day Men's Complete) 1 tab PO DAILY warfarin 5 mg See Protocol PO DAILY Nursing Note INR: 2.0 in therapeutic range Medications and supplements reviewed- states no changes but did not take this am 'water Pill because he has appointments and will take when he gets home- Pt states he has been sob x 1 week- along with edema right leg greater than right, may have a vascular procedure to improve circulation, [place] on way to [facility], brought by wheelchair to cardiology- he states when he lays down at night he is sob, he was able to speak in full sentences but fatigued in between Denies any signs and symptoms of bleeding or bruising or clotting. Bleeding, bruising, clotting discussed Nutritional guidance given - eat mix of fruits and vegetables - like beets Dose: keep same F/U INR: 1 1/2 weeks Patient verbalizes understanding of instructions given Anti-Coag Initial Assessment Social Hx Patient Tobacco Use Status: Former Tobacco user alcohol intake: current Alcohol intake frequency: a few times a month Questionnaires HAS-BLED Does the patient had uncontrolled Hypertension?: No Does the patient have renal disease?: No Does the patient have liver disease?: No Does the patient have a history of stroke?: No Has the patient had major bleeding or predisposition to bleeding?: Yes Does the patient have labile INRs?: Yes Is the patient over 65 years of age?: Yes Is the patient on medications that gives them a predisposition to bleeding?: Yes Does the patient use alcohol?: Yes HAS-BLED Score: 5 CHADSVASC Age: 75 or over Gender: Male Does the patient have a history of CHF?: Yes Does the patient have a history of Hypertension?: Yes Does the patient have a history of Stroke/TIA/Thromboembolism?: Yes Does the patient have a history of Vascular Disease (prior PA, PAD or aortic plaque)?: Yes Does the patient have a history of Diabetes?: No CHADS VACS Score: 7 Zelda Prediction Score Rsk VTE Active Cancer: No Previous VTE, excluding superficial vein thrombosis: Yes Reduced mobility: Yes (legs are painful especially right leg with edema) Already known Thrombophilic Condition: No With-in last month Trauma and/or Surgery: No Elderly 70 year or older: Yes Heart and/or Respiratory Failure: Yes Acute Myocardial infarction and/or Ischemic Stroke: No Acute Infection and/or Rheumatologic Disorder: No Obesity (BMI 30 or greater): Yes Ongoing Hormonal Treatment: No Score: 9 Zelda Score less than 4; Low Risk of VTE Zelda Score 4 or greater; High Risk of VTE Coding Level of Care Code Est Patient Level 1 Diagnoses Current use of anticoagulant therapy Z79.01 Results AMB INR Fingerstick AMB INR Fingerstick 2.0 Last Edit by Destinee Pascal RN on 02/07/25 08:40 manual entry Assessment & Plan Assessment & Plan (1) Current use of anticoagulant therapy: Code(s): Z79.01 - FPC (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
--- OUTSIDE RECORDS SUMMARY | 2025-02-07 08:56 | XMS_ITS | Encounter Summary ---
Author Organization [facility] Address [address] [place] [id number] Phone Care Team Providers Care Briar Wood Sorter Name Role Phone Shadi Sevilla MD Primary Care Provider [phone] Encounter Details Date Type Department Care Team (Late st Contact Info) Description 07/14/2018 Ancillary Orders [facility] [address] [place] [address] Ivan Lopes MD [address] [facility] [place] [address] [email or web address] Social History Tobacco Use Types Packs/Day Years [...] on filedocumented in this encounter Care Teams Briar Wood Sorter Relationship Specialty Start Date End Date Shadi Sevilla MD PCP - General 04/03/17 documented as of this encounter Additional Source Comments The information contained in this document represents components of the legal health record. It is not the complete legal health record.[facility]
[2025-02-07 09:07] LABS: Prothrombin Time Whole Bld POC 24.0 sec (11.1-13.5); ~PT, ~INR - Anti Coag Clinic 2.0 (0.9-1.1)
== END 2025-02-07 08:56 | disposition home or self-care (01) ==
PROVIDERS: PCP Internal Medicine; Visit Provider Internal Medicine Medical Oncology
DX: Z79.01 Long term (current) use of anticoagulants (principal)

== ENCOUNTER 2025-02-07 08:33 | Outpatient (REF) | payer MEDICARE, SELFPAY ==
[2025-02-07 11:34] LABS: Hematocrit 21.9 % (42.0-52.0); Hemoglobin 7.1 g/dl (14.0-18.0); Mean Corpuscular HGB Conc 32.4 g/dl (31.0-36.0); Mean Corpuscular Hemoglobin 33.5 pg (27.0-33.0); Mean Corpuscular Volume 103.3 fL (80.0-98.0); NRBC Abs Auto 3.800 X10*3/uL (0.0-0.012); Red Blood Count 2.12 X10*6/uL (4.60-5.80)
[2025-02-07 11:35] LABS: NRBC Pct Auto 183.6 /100WBC (0.0-0.2); White Blood Count 2.1 X10*3/uL (4.8-10.8)
[2025-02-07 11:56] LABS: Platelet Count 48 X10*3/uL (160-400)
[2025-02-07 12:00] LABS: B Type Natriuretic Peptide 194 pg/mL (<100)
[2025-02-07 12:16] LABS: Anion Gap 14 (12-20); Blood Urea Nitrogen 21 mg/dL (9-16); Calcium 9.3 mg/dL (8.4-10.2); Carbon Dioxide 21 mmol/L (22-29); Chloride 109 mmol/L (96-108); Estimated Glomerular Filt Rate > 60; Potassium 3.8 mmol/L (3.3-5.1); Sodium 140 mmol/L (135-145)
== END 2025-02-07 08:34 | disposition home or self-care (01) ==
LOC: HO.LAB 08:33
PROVIDERS: Absent Provider Internal Medicine Cardiovascular Disease; PCP Internal Medicine; Visit Provider Internal Medicine Medical Oncology
DX: I11.0 Hypertensive heart disease with heart failure (principal); I50.32 Chronic diastolic (congestive) heart failure; I42.9 Cardiomyopathy, unspecified; I44.7 Left bundle-branch block, unspecified; Z95.2 Presence of prosthetic heart valve; Z79.899 Other long term (current) drug therapy
CPT/HCPCS: 36415; 80048; 83880; 85027; 85610; 99211; 99212

== ENCOUNTER 2025-02-07 08:52 | Outpatient (AMB) | payer MEDICARE, SELFPAY ==
--- NOTE | 2025-02-07 09:47 | A.OFFVIS_ITS ---
Vital Signs 02/07/25 09:50 Height 5 ft 6 in Weight 257 lb 15.053 oz BMI 41.6 BP 132/66 Blood Pressure Location Lt brachial Position Sitting Pulse 68 Pulse Source Pulse Oximeter Intake Visit Reasons: 4 mth f/up Allergies Penicillins (PENICILLINS) Allergy (Severe, Verified 02/07/25 08:35) HIVES Medication List - Last Reconciled 02/07/25 by Timothy Jade MD acetaminophen ER 650 mg PO ONCE atorvastatin 40 mg PO DAILY cane Folding cane please.Use daily due to unsteady on feet and recurrent falls cyclobenzaprine 10 mg PO Q8H furosemide (Lasix) 40 mg orally 2 tablets in the am and 1 tablet in the pm; 90 days lisinopril 40 mg PO DAILY metoprolol succinate ER 50 mg PO DAILY multivit,calc,mxf-MP-T5-lycop 240 mcg-30 mcg- 300 mcg (One-A-Day Men's Complete) 1 tab PO DAILY warfarin 5 mg See Protocol PO DAILY HPI Comments Details: Pleasant 84-year-old gentleman here for follow-up. He has known history of pre vious bypass surgery and mechanical aortic valve replacement. He was seen for new onset heart failure and was found to have cardiomyopathy with severely reduced ejection fraction. 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 He was sent for a Bi V AICD placement which happened in February 2019 at [facility] by Dr. Cruz. His repeat echocardiogram in May 2019 showing ejection fraction of 50-55%. It also showed some moderate aortic stenosis and concern for patient prosthesis mismatch. He has chronic right lower extremity edema due to a blood clot in the past. He has been doing well since then. He has no chest discomfort shortness of breath. Clinically not in heart failure. Taking medications regularly. Stable on follow-up. 07/01/22: On follow-up he is doing well. He is sayng he wakes up in the middle night and cannot go back to sleep for few hours. He is saying he does not wake up for shortness of breath or PND. Overall clinically stable. 12/23/22: He returns for follow-up. He has been taking medications regularly. His denying any chest discomfort or significant shortness of breath. No s ignificant orthopnea or PND. He has peripheral edema which is chronic. The right leg is worse than the left due to previous DVT. 04/28/23: He is here for f/u. BP is elevated. He has been doing well. No dyspnea or CP. 09/15/23: He returns for follow-up. He was seen in the office in June by our nurse practitioner. He was complaining of fatigue at that time. He had blood workup done which showed mildly elevated BNP level. He was referred for echocardiography which showed EF 60% with inferior inferolateral wall motion abnormality. Lasix was increased to 80 mg in the morning and 40 in the afternoon. He was only 80 mg once a day previously. He returns and he still has some fatigue. He said he started raking his lawn and has been feeling some barrels and taking them up hill. He is able to do somewhat more over the last week compared to before. He gets some shortness of breath going uphill. He feels tired easily. We discussed about sleep apnea previously because he is overweight. He is not interested in doing sleep study. 03/22/2024: He is here for follow-up. No chest pain or shortness of breath. He gets tired and has to take breaks. He is doing cardiac rehabilitation. Blood pressure well controlled. Chronic lower extremity edema which is stable. 05/31/2024: Tad is back for follow-up. He is saying he has significant arthritis in his knees and was told 10 years ago that he has severe arthritis. More recently he has been getting pains in his hands and shoulders. He said he was using Tylenol up to 2 times a day with some relief but asking whether he can have some better treatment for this. He is on Coumadin. Continues to have lower extremity edema which is chronic. His breathing is at baseline. He is saying that he was in cardiac rehabilitation where the nurses checked his pulse or oxygen level and told him to go to ER. He is unsure whether what exactly happened. We will get some more information from cardiac rehabilitation. 09/29/2024: He is here for follow-up. No chest discomfort. He is saying breathing is stable but he gets tired easily. He has lower extremity edema which has been stable. He is taking Lasix daily. Blood pressure is mildly elevated. His main issue is shoulder and knee pain due to arthritis. He is asking whether physiotherapy will help him. 02/07/25: He is here for f/u. He is saying that he has not been feeling well. He is short of breath with activities. He has has orthopnea. He is noticing more swelling in the legs. He has saw vascular surgery for assessment of his veins. He initially was advised to take Lasix 80 mg twice a day. He has been taking 80 in the morning and 40 in the afternoon and also missing some doses in the afternoon during the week. His blood pressure control otherwise good. He is also sneezing but does not have any obvious bronchitis like symptoms. [facility] Medical History Leg swelling Chronic anemia Peripheral edema Arthritis Annual physical exam Bilateral knee pain History of bad fall Multiple joint pain Fall on ice Morbid obesity with BMI of 40.0-44.9, adult Cardiomyopathy History of left bundle branch block Hypertension Fatigue Current use of anticoagulant therapy Surgical History History of cardiac cath History of aortic valve replacement Family History Father Kidney problem Mother Cancer Social History Housing: House Alcohol intake: current Alcohol intake frequency: a few times a month Alcohol type: beer Patient Tobacco Use Status: Former Tobacco user Years Smoked: 23 +/- service: No Current occupational status: retired Cognitive needs: Yes (cane) Hearing needs: No Vision needs: Yes (reading glasses) Review of Systems Const Denies chills, Denies fatigue, Denies fever(s), Denies frequent falls, Denies weakness, Denies weight gain and Denies weight loss ENT Denies dizziness Card Denies chest pain, Denies leg edema, Denies lightheadedness, Denies palpitations, Reports dyspnea, Reports dyspnea on exertion and Reports orthopnea Resp Denies cough, Reports dyspnea and Reports dyspnea on exertion GI Denies hematochezia Musc Denies abnormal gait, Denies muscle weakness, Denies numbness, Denies radiating pain into limb and Denies tingling Neuro Denies abnormal gait, Denies dizziness, Denies frequent falls, Denies numbness, Denies tingling and Denies weakness Endo Denies fatigue and Denies palpitations Physical Exam Vital Signs: Last Vital Signs Pulse 68 02/07/25 09:50 BP 132/66 02/07/25 09:50 BMI result Body Mass Index 41.6 GENERAL APPEARANCE: in no acute distress, obese. NECK/THYROID: no carotid bruit, no jugular venous distention. SKIN: warm and dry. HEART: no murmurs, regular rate and rhythm, mechanical 2nd heart sound. LUNGS: Fine crackles both bases. ABDOMEN: normal, bowel sounds present, soft, nontender, nondistended. EXTREMITIES: 2+ edema bilaterally right more than left. PERIPHERAL PULSES: equal. NEUROLOGIC: nonfocal, alert and oriented. Results AMB INR Fingerstick AMB INR Fingerstick 2.0 Last Edit by Destniee Pascal RN on 02/07/25 08:40 manual entry Assessment & Plan Assessment & Plan (1) Chronic diastolic CHF (congestive heart failure): Code(s): I50.32 - Chronic diastolic (congestive) heart failure Category: Medical (2) Essential hypertension: Code(s): I10 - Essential (primary) hypertension Category: Medical (3) History of aortic valve replacement: Comment: Mechanical Code(s): Z95.2 - Presence of prosthetic heart valve Category: Surgical Plan [age] year gentleman who is here for follow-up. He has background history of chronic diastolic heart failure. He has not been taking furosemide as advised previously. He has noticed worsening edema in the lower extremities right more than left side, dyspnea with activities as well as orthopnea. Clinically he is in heart failure. I have advised him to take furosemide 40 mg tablets 2 tablets twice a day. We will bring him back in 10 days for follow-up with the nurse practitioner or myself and reassess him. I will do basic blood workup to rule out any anemia or other causes for his symptoms. We will also check echocardiogram to rule out any cardiomyopathy or structural issues with the heart. Thank you for allowing me to participate in the care of your patient. Please feel free to contact me if you have any questions. Orders: Orders Complete Blood Count no Diff Today I50.32 - Chronic diastolic (congestive) heart failure Basic Metabolic Panel Today I50.32 - Chronic diastolic (congestive) heart failure B Type Natriuretic Peptide Today I50.32 - Chronic diastolic (congestive) heart failure CA echo transthorac w con Today I50.32 - Chronic diastolic (congestive) heart failure Coding Level of Care Code Est Pt Level 4 (19964) Diagnoses Chronic diastolic CHF (congestive heart failure) I50.32 Essential hypertension I10 History of aortic valve replacement Z95.2
[2025-02-07 09:50] VITALS: BP 132/66; PULSE 68; BMI 41.6
== END 2025-02-07 10:31 | disposition home or self-care (01) ==
LOC: HO.HCS 08:53
PROVIDERS: PCP Internal Medicine; Visit Provider Internal Medicine Cardiovascular Disease
DX: I50.32 Chronic diastolic (congestive) heart failure (principal); I10 Essential (primary) hypertension; Z95.2 Presence of prosthetic heart valve
CPT/HCPCS: 93010; 99214

== ENCOUNTER 2025-02-07 12:58 | Inpatient (IN) | payer MEDICARE, SELFPAY ==
[2025-02-07] VITALS (8 sets, daily range): BP systolic 96–133; BP diastolic 44–67; PULSE 74–104; RESP 14–26; TEMP 36.3–36.7; O2SAT 97; BMI 39.1
--- NOTE | ~2025-02-07 | XR_ITS ---
EXAMINATION: XR CHEST CLINICAL INFORMATION: SOB COMPARISON: 01/14/2019. TECHNIQUE: 2 views of the chest were obtained. FINDINGS: Left-sided 3-lead AICD device is in place, with leads extending into the right atrium, right ventricle and coronary sinus. There has been prior median sternotomy and aortic valve replacement. The cardiac, hilar, and mediastinal contours appear normal. Aortic mural calcification. There is an elevated right hemidiaphragm, unchanged. The lungs appear clear bilaterally. There is no pneumothorax or pleural effusion. There is no focal osseous or soft tissue abnormality. There are degenerative changes in the spine. XR/XR chest 2V IMPRESSION: No active pulmonary disease. No significant interval change. Electronically signed by: Darwin Polanco MD 02/07/2025 02:23 PM EDT
--- NOTE | 2025-02-07 13:02 | ED_ITS ---
HPI - General Adult General Chief complaint: Recheck/Abnormal Lab/Rx Stated complaint: Sent by PCP for Blood Transfusion Time Seen by Provider: 02/07/25 13:12 Source: patient Mode of arrival: ambulatory Limitations: no limitations History of Present Illness ED Provider: Yara Harp APRN HPI narrative: This is an 84-year-old male with a history of coronary artery disease status post CABG, aortic valve replacement on Coumadin, congestive heart failure, AICD who presents to the ER with complaints of shortness of breath with exertion for the last few weeks. Patient also complained of feeling fatigued. He denies any associated chest pain. He followed up with his senior water resources engineer today who was concerned that the patient had swelling in his legs with orthopnea and had been not entirely compliant with his dosages of Lasix. They ordered labs and an echocardiogram. Patient was found to be anemic and was sent into the ER for further evaluation. Patient tells me that he does not feel that his legs are more swollen from baseline. He denies any recent weight gain. Denies cough or fever. He has no complaints of chest pain. He has been taking 80 mg of Lasix in the morning and 40 mg of Lasix at night time. He denies any blood in his stools or black stools. Denies abdominal pain. Denies any hematuria. He has never required a blood transfusion before. Related Data Home Medications ?Medication ?Instructions ?Recorded ?Confirmed multivit,calc,mins-folic 240 1 tab PO DAILY 07/26/21 0 02/07/25 mcg-vit K1 30 mcg-lycopene 300 mcg tablet (One-A-Day Men's Complete) acetaminophen 650 mg 650 mg PO Q6H PRN Pain 07/2202/07/25 tablet,extended release cyclobenzaprine 10 mg tablet 10 mg PO Q8H PRN muscle s pasm 02/07/25 02/07/25 furosemide 40 mg tablet 40 mg PO DAILY@1700 02/07/25 02/07/25 furosemide 40 mg tablet (Lasix) 40 mg PO DAILY 02/07/2 5 02/07/25 warfarin 5 mg tablet 2.5 mg PO SUTUWEFRSA@1800 02/07/25 warfarin 5 mg tablet 5 mg PO MOTH@179902/07/25 0 02/07/25 Previous Rx's ?Medication ?Instructions ?Recorded cane #1 ea 09/07/24 atorvastatin 40 mg tablet 40 mg PO DAILY #90 tabs 09/15 03/10 lisinopril 40 mg tablet 40 mg PO DAILY #90 tabs 09/16 metoprolol succinate 50 mg 50 mg PO DAILY #90 tabs 08/10 tablet,extended release 24 hr warfarin 5 mg tablet 5 mg PO DAILY #90 tabs 10/22 Allergies Allergy/AdvReac Type Severity Reaction Status Date / Time Penicillins (PENICILLINS) Allergy Severe HIVES Verified 02/07/25 13:05 Review of Systems 2 Review of Systems: Yes all other systems are reviewed and are negative Constitutional: Constitutional: Reports no additional constitutional complaints, Denies body ache(s), Denies chills, Reports fatigue, Denies fever(s), Denies headache(s) and Reports weakness Eyes: Eyes: Reports no additional eye complaints and Denies change in vision ENT: Reports system reviewed and no additional complaints, except as documented, Denies dizziness, Denies headache(s), Denies nasal congestion, Denies nasal discharge and Denies neck pain Cardiovascular: Cardiovascular: Reports no additional cardiovascular complaints, Denies chest pain, Denies leg edema, Denies dyspnea and Reports dyspnea on exertion Respiratory: Respiratory: Reports no additional respiratory complaints, Denies cough, Denies dyspnea and Reports dyspnea on exertion Gastrointestinal: Gastrointestinal: Reports no additional gastrointestinal complaints, Denies abdominal pain, Denies diarrhea, Denies nausea and Denies vomiting Genitourinary: Genitourinary: Denies urinary incontinence Musculoskeletal: Musculoskeletal: Reports no additional musculoskeletal complaints, Denies back pain, Denies arthralgias, Denies joint swelling, Denies neck pain, Denies numbness and Denies tingling Integumentary/Breasts: Skin/Breast: Reports system reviewed and no additional complaints, except as docu and Denies rash Neurologic: Reports system reviewed and no additional complaints, except as documented, Denies Abnormal speech present, Denies dizziness, Denies headache(s), Denies numbness, Denies tingling and Reports weakness Endocrine: Endocrine: Reports fatigue PMFSH Past Medical History Attestation statement: The following information was validated with the patient. Source: old records reviewed and nursing notes reviewed Medical History (Updated 02/07/25 @ 16:00 by Junie Ye MD) Leg swelling Chronic anemia Peripheral edema Arthritis Annual physical exam Bilateral knee pain History of bad fall Multiple joint pain Fall on ice Morbid obesity with BMI of 40.0-44.9, adult Cardiomyopathy History of left bundle branch block Hypertension Fatigue Current use of anticoagulant therapy Surgical History History of cardiac cath History of aortic valve replacement Family History Family History Father Kidney problem Mother Cancer Social History Social History Housing: House Alcohol intake: current Alcohol intake frequency: a few times a month Alcohol type: beer Patient Tobacco Use Status: Former Tobacco user Years Smoked: 23 +/- Smoked in Last 30 Days: No Use of substances other than those prescribed or required for medical reasons: No Advance Directives: Yes Advance Directives Information Provided: No Advance Directives on File: No Do you have a plan to hurt others: No Plan service: No Current occupational status: retired Cognitive needs: Yes (cane) Hearing needs: No Vision needs: Yes (reading glasses) Physical Exam ED Vital Signs: Vital Signs - 24 hr 02/07/25 12:59 02/07/25 13:21 02/07/25 14:21 Temperature 98 F 98 F Pulse Rate 104 H 86 87 Respiratory Rate 24 H 14 16 Blood Pressure 124/56 L 96/46 L 118/47 L Pulse Oximetry 97 97 97 Oxygen Delivery Method Room Air Room Air Room Air 02/07/25 14:26 02/07/25 14:43 Temperature 98.0 F 97.3 F Pulse Rate 88 89 Respiratory Rate 15 26 H Blood Pressure 99/44 L 111/52 L Pulse Oximetry Oxygen Delivery Method BMI result Body Mass Index 39.1 Const General: cooperative, healthy appearing, comfortable and no acute distress Orientation/consciousness: patient oriented x3 Limitations: no limitations HENMT Head: Yes normal to inspection Ears: hearing grossly normal bilaterally General nose exam: Normal external nose present Face and sinus: Yes normal facial exam Mouth: Normal oral and palatal mucosa present Throat: Yes posterior oropharynx normal Eyes General: appearance normal, both eyes and all related structures Conjunctivae: conjunctival abnormal bilateral pallor Pupils: Equal, round and reactive pupils present Neck Neck: Yes normal visual inspection Chest Chest palpation & inspection: normal inspection of the chest Resp Effort & Inspection: normal respiratory effort Auscultation: clear to auscultation bilaterally Cardio Rate: regular rate Rhythm: regular rhythm Peripheral pulses: Peripheral pulses 2+ throughout GI Inspection: Yes normal to inspection Palpation (GI): Soft to palpation and nontender Auscultation: normal bowel sounds Back/Spine/Pelvis Thoracic/Lumbar Spine: thoracic and lumbar spine normal to inspection Skin General skin exam: no rashes or lesions noted Neuro General: patient oriented x3, moves all extremities, no focal motor deficits and normal sensation to monofilament Cranial nerves: Yes Equal, round and reactive pupils present Cognition (Neuro): normal cognition Speech: No Abnormal speech present Gait exam (Neuro): Normal gait present Motor exam (neuro): 5/5 motor strength present throughout Extrem General: Yes normal to inspection, Yes no calf tenderness and Yes pedal edema Course Course Course Narrative: Rapid medical examination performed in triage by Amanda Lerma PA-C. Patient is an 84 year old assigned male at presenting to the emergency department with shortness of breath / difficulty breathing. Detailed physical exam and review of systems are deferred to the engineering drafter. EKG, labs, imaging, and swabs ordered. Patient placed back in the waiting room pending room availability and results. Medical Decision Making Medical Decision Making MDM Narrative: This is an 84-year-old male with a history of coronary artery disease status post CABG, aortic valve replacement on Coumadin, congestive heart failure, AICD who presents to the ER with complaints of shortness of breath with exertion for the last few weeks. Patient also complained of feeling fatigued. He denies any associated chest pain. He followed up with his senior water resources engineer today who was concerned that the patient had swelling in his legs with orthopnea and had been not entirely compliant with his dosages of Lasix. They ordered labs and an echocardiogram. Patient was found to be anemic and was sent into the ER for further evaluation. Patient tells me that he does not feel that his legs are more swollen from baseline. He denies any recent weight gain. Denies cough or fever. He has no complaints of chest pain. He has been taking 80 mg of Lasix in the morning and 40 mg of Lasix at night time. He denies any blood in his stools or black stools. Denies abdominal pain. Denies any hematuria. He has never required a blood transfusion before. Patient is hemodynamically stable. He does have pale conjunctivae. His abdomen is soft nontender. His lungs are clear. He has bilateral lower extremity swelling which is nonpitting. He has no calf pain. I recommended doing a rectal exam to check for occult blood but patient refused this. Symptomatic anemia Will obtain labs, EKG, CXR T&S ordered Patient consented for 1 unit PRBC Will need admission Differential Diagnosis Differential Diagnoses: The differential diagnosis associated with the presentation includes Anemia unknown cause ?MDS Admission/Observation Consideration of admission/observation: Escalation of care including admission/observation considered Consult Healthcare Provider Management of the patient was discussed with: Hospitalist and Candy Separator [employer]robing Katy LEAL (contacted at 1430) Dr Jade called and we spoke about this client Lab Data MDM Lab Attestation statement: I reviewed the patient's lab results. 02/07/25 13:18 02/07/25 13:18 Labs: Lab Results 02/07/25 02/07/25 Range/Units 13:18 14:50 WBC 2.2 L (4.8-10.8) X10*3/uL RBC 1.93 L (4.60-5.80) X10*6/uL Hgb 6.5 L* (14.0-18.0) g/dl Hct 19.8 L* (42.0-52.0) % MCV 102.6 H (80.0-98.0) fL MCH 33.7 H (27.0-33.0) pg MCHC 32.8 (31.0-36.0) g/dl RDW 15.2 (11.0-16.0) % Plt Count 46 L (160-400) X10*3/uL MPV 10.9 (9.4-12.4) fL Immature Gran % (Auto) 0.5 H (0.0-0.4) % Neut % (Auto) 32.3 L (45-73) % Lymph % (Auto) 61.7 H (20-40) % Hardee % (Auto) 4.1 (2-11) % Eos % (Auto) 0.9 (0-4) % Baso % (Auto) 0.5 (0-2) % Lymph # (Auto) 1.4 (1.2-4.9) X10*3/uL Hardee # (Auto) 0.1 (0.1-1.2) X10*3/uL Eos # (Auto) 0.0 (0.0-0.4) X10*3/uL Baso # (Auto) 0.0 (0.0-0.2) X10*3/uL Abs Immat Gran (auto) 0.01 (0.00-0.03) X10*3/uL Absolute Neuts (auto) 0.7 L (2.0-8.3) x10*3/uL Absolute Nucleated RBC 4.460 H (0.0-0.012) X10*3/uL Nucleated RBC % (auto) 200.9 H (0.0-0.2) /100WBC Smear Tech's Comments VERIFIED PT 26.0 H (10.9-12.4) SEC INR 2.3 H D (0.9-1.1) Sodium 141 (135-145) mmol/L Potassium 3.7 (3.3-5.1) mmol/L Chloride 109 H (96-108) mmol/L Carbon Dioxide 23 (22-29) mmol/L Anion Gap 13 (12-20) BUN 22 H (9-16) mg/dL Creatinine 1.23 (0.5-1.4) mg/dL Estim Creat Clear Calc 56.4 Estimated GFR 56 Random Glucose 122 H (60-115) mg/dL Calcium 9.1 (8.4-10.2) mg/dL Magnesium 2.0 (1.6-2.6) mg/dL Total Bilirubin 2.2 H (0.0-1.0) mg/dL AST 46 H (5-37) U/L ALT 14 (0-40) U/L Alkaline Phosphatase 78 (39-117) U/L Lactate Dehydrogenase 423 H (118-273) U/L Troponin I High Sens 6.9 (<3.5-35.0) ng/L B-Natriuretic Peptide 208 H (<100) pg/mL Total Protein 6.7 (6.5-8.0) g/dL Albumin 3.7 (3.5-5.0) g/dL Influenza Type A (PCR) NEGATIVE (Negative) Influenza Type B (PCR) NEGATIVE (Negative) RSV RNA Qual (PCR) NEGATIVE (Negative) SARS-CoV-2 RNA (RT-PCR) NEGATIVE (Negative) Blood Type B Positive Antibody Screen NEGATIVE Crossmatch See Detail Independent Interpretation I performed an independent interpretation of an: EKG and Plain X-Ray Interpretation: EKG shows AV paced rhythm I independently reviewed the CXR and agree with the radiology report Radiology Impression Discussion of test interpretation with radiology: I have reviewed the radiologist's reading. Radiologist Impression: [address] [address] XRay Report Signed Patient: Tad Villar MR#: [id number] : 1940 Acct:[id number] Age/Sex: 84 / M ADM Date: 02/07/25 Loc: .ED Attending Dr: Ordering Physician: Amanda Lerma Date of Service: 02/07/25 Procedure(s): XR chest 2V Accession Number(s): [id number] cc: Amanda Lerma; Tim Shaw MD~ EXAMINATION: XR CHEST CLINICAL INFORMATION: SOB COMPARISON: 01/14/2019. TECHNIQUE: 2 views of the chest were obtained. FINDINGS: Left-sided 3-lead AICD device is in place, with leads extending into the right atrium, right ventricle and coronary sinus. There has been prior median sternotomy and aortic valve replacement. The cardiac, hilar, and mediastinal contours appear normal. Aortic mural calcification. There is an elevated right hemidiaphragm, unchanged. The lungs appear clear bilaterally. There is no pneumothorax or pleural effusion. There is no focal osseous or soft tissue abnormality. There are degenerative changes in the spine. XR/XR chest 2V IMPRESSION: No active pulmonary disease. No significant interval change. Electronically signed by: Darwin Polanco MD 02/07/2025 02:23 PM EDT Critical Care Time Critical Care Time Critical Care Time: Yes Total Critical Care Time: 60 Attestation: Time includes: direct patient care, patient reassessment, coordination of patient care, interpretation of data, review of patient's medical records, medical consultation and documentation of patient care. Discharge Plan Discharge Clinical Impression: Pancytopenia Patient Disposition: Admitted As Inpatient Print Language: German
[2025-02-07 13:27] LABS: Imm Gran Abs Auto 0.01 X10*3/uL (0.00-0.03); Imm Gran Pct Auto 0.5 % (0.0-0.4); Lymphocytes Absolute Auto 1.4 X10*3/uL (1.2-4.9); MANUAL DIFF FLAG SCAN; Mean Corpuscular HGB Conc 32.8 g/dl (31.0-36.0); Mean Corpuscular Hemoglobin 33.7 pg (27.0-33.0); Mean Corpuscular Volume 102.6 fL (80.0-98.0); NRBC Abs Auto 4.460 X10*3/uL (0.0-0.012); Red Blood Count 1.93 X10*6/uL (4.60-5.80); SCAN SMEAR FLAG 1
[2025-02-07 13:28] LABS: White Blood Count 2.2 X10*3/uL (4.8-10.8)
[2025-02-07 13:29] LABS: NRBC Pct Auto 200.9 /100WBC (0.0-0.2); Platelet Count 46 X10*3/uL (160-400)
--- NOTE | 2025-02-07 13:30 | ECG_ITS ---
Test Reason : WEAKNESS Blood Pressure : */* mmHG Vent. Rate : 87 BPM Atrial Rate : 87 BPM P-R Int : 174 ms QRS Dur : 134 ms QT Int : 404 ms P-R-T Axes : 46 95 -32 degrees QTcB Int : 486 ms Artifact in tracing Atrial-sensed ventricular-paced rhythm Abnormal ECG When compared with ECG of 27-Dec-2018 10:56, Morphology of paced V complexes appear different Referred By: Yara Harp Electronically Signed By: MERVAT GARCIA
[2025-02-07 13:31] LABS: INTERNATIONAL NORM RATIO 2.3 (0.9-1.1); Prothrombin Time 26.0 SEC (10.9-12.4)
[2025-02-07 13:35] LABS: Hematocrit 19.8 % (42.0-52.0); Hemoglobin 6.5 g/dl (14.0-18.0)
[2025-02-07 13:42] LABS: Alanine Aminotransferase 14 U/L (0-40); Albumin Level 3.7 g/dL (3.5-5.0); Alkaline Phosphatase 78 U/L (39-117); Anion Gap 13 (12-20); Aspartate Amino Transferase 46 U/L (5-37); Blood Urea Nitrogen 22 mg/dL (9-16); Calcium 9.1 mg/dL (8.4-10.2); Carbon Dioxide 23 mmol/L (22-29); Chloride 109 mmol/L (96-108); Creatinine Clr Calc Pharmacy 56.4; Estimated Glomerular Filt Rate 56; Magnesium 2.0 mg/dL (1.6-2.6); Potassium 3.7 mmol/L (3.3-5.1); Sodium 141 mmol/L (135-145); Total Protein 6.7 g/dL (6.5-8.0)
[2025-02-07 13:45] LABS: Troponin-I High Sensitivity 6.9 ng/L (<3.5-35.0)
--- NOTE | 2025-02-07 14:45 | PC.NURSE ---
Patient transfusing first pack of RBC. VSS Blood verified with Deepthi FAUST. Initial 15 minutes complete, no reactions noted by patient Vitals remain stable
[2025-02-07 14:57] LABS: B Type Natriuretic Peptide 208 pg/mL (<100)
[2025-02-07 15:41] LABS: Resp Syncy Virus RNA Qual PCR NEGATIVE (Negative); SARS COV2 PCR INHOUSE NEGATIVE (Negative)
--- NOTE | 2025-02-07 16:00 | PM.IMHP ---
History of Present Illness Date of Service: 02/07/25 Attending physician on admission: Junie Ye Chief Complaint: Exertional dyspnea and fatigue, severe anemia Very pleasant 84-year-old male, with a background history of CAD s/p ischemic cardiomyopathy s/p AICD, mechanical AVR on warfarin, chronic anemia, ulcerative colitis, chronic R LE DVT, lower extremity lymphedema, presents with complaints of exertional dyspnea for the last few weeks and fatigue. PRESENTATION Patient presented to his outpatient adult manager with complaints of exertional shortness of breath for the last few weeks and fatigability. They noted worsening lower extremity edema and orthopnea, with noncompliance with furosemide. Lab work was performed, revealing severe anemia. He was sent to the emergency room for further evaluation The patient denies chest pain, chest pressure, palpitations, dizziness, loss of consciousness. The patient denies hematuria, melena, hematochezia, hematemesis, bruising, petechiae, rashes, heartburn/ dyspepsia. No new falls or injuries. Has been compliant with warfarin without new medications or dietary changes. INR has been within therapeutic range based on evaluation by warfarin nurse Q 1-2 weeks. No NSAID use, no EtOH. EMERGENCY DEPARTMENT MANAGEMENT ECG and chest x-ray unremarkable Type and screen was performed. Patient was consented for 1 unit PRBC, and this was administered. Review of Systems Review of Systems: Yes all other systems are reviewed and are negative [facility] Medical History Leg swelling Chronic anemia Peripheral edema Arthritis Annual physical exam Bilateral knee pain History of bad fall Multiple joint pain Fall on ice Morbid obesity with BMI of 40.0-44.9, adult Cardiomyopathy History of left bundle branch block Hypertension Fatigue Current use of anticoagulant therapy Family History Father Kidney problem Mother Cancer Surgical History History of cardiac cath History of aortic valve replacement Social History Housing: House Alcohol intake: current Alcohol intake frequency: a few times a month Alcohol type: beer Patient Tobacco Use Status: Former Tobacco user Years Smoked: 23 +/- Smoked in Last 30 Days: No Use of substances other than those prescribed or required for medical reasons: No Advance Directives: Yes Advance Directives Information Provided: No Advance Directives on File: No Do you have a plan to hurt others: No Plan service: No Current occupational status: retired Cognitive needs: Yes (cane) Hearing needs: No Vision needs: Yes (reading glasses) Meds Allergies Allergy/AdvReac Type Severity Reaction Status Date / Time Penicillins (PENICILLINS) Allergy Severe HIVES Verified 02/07/25 13:05 Home Medications ?Medication ?Instructions ?Recorded ?Confirmed ?Last Taken ?Type multivit,calc,mins-folic 240 1 tab PO DAILY 07/26/21 02/07/25 02/06/25 History mcg-vit K1 30 mcg-lycopene 300 mcg tablet (One-A-Day Men's Complete) acetaminophen 650 mg 650 mg PO Q6H PRN Pain 07/22/24 02/07/25 02/06/25 History tablet,extended release cyclobenzaprine 10 mg tablet 10 mg PO Q8H PRN muscle spasm 02/07/25 02/07/25 02/06/25 History furosemide 40 mg tablet 40 mg PO DAILY@1700 02/07/25 02/07/25 02/06/25 History furosemide 40 mg tablet (Lasix) 80 mg PO DAILY 02/07/25 02/07/25 02/06/25 History warfarin 5 mg tablet 2.5 mg PO SUTUWEFRSA@1800 02/07/25 02/07/25 02/06/25 History warfarin 5 mg tablet 5 mg PO MOTH@1800 02/07/25 02/07/25 02/03/25 History Physical Exam Vital Signs and Narrative: Vital Signs: Last Vital Signs Temp 97.3 F 02/07/25 14:43 Pulse 89 02/07/25 14:43 Resp 26 H 02/07/25 14:43 BP 111/52 L 02/07/25 14:43 Pulse Ox 97 02/07/25 14:21 O2 Del Method Room Air 02/07/25 14:21 BMI result Body Mass Index 39.1 General: A&O x3, oriented to time place person and situation, comfortable, no pain. Cardiac: S1, S2 auscultated with no S3/4, no MRG. Well perfused. Click of mechanical AVR auscultated throughout precordium. No palpable thrill. Pulse regularly regular. AICD Device palpated in the left subclavicular space. Respiratory: Normal breath sounds auscultated throughout all lung zones, without wheezing, rales. Normal rate. GI/ : No abdominal pain on palpation, no masses or distentions. Light and deep palpation unremarkable, with no distentions. No evidence of petechiae or ecchymosis. MSK: Normal ambulation without pain at bony prominences or musculature. Extremities: Bilateral lower extremity edema 4+ pitting edema to the mid-hoover, with 1+ pitting edema to the knees bilaterally. Lymphedematous lower extremities are noted as well. Neurological: Normal neurological examination on overview, without obvious CN II-XII abnormalities. Results Labs 02/07/25 13:18 02/07/25 13:18 Labs: Laboratory Results - last 24 hr 02/07/25 02/07/25 13:18 14:50 MCV 102.6 H MCH 33.7 H MCHC 32.8 RDW 15.2 Plt Count 46 L MPV 10.9 Immature Gran % (Auto) 0.5 H Neut % (Auto) 32.3 L Lymph % (Auto) 61.7 H King % (Auto) 4.1 Eos % (Auto) 0.9 Baso % (Auto) 0.5 Lymph # (Auto) 1.4 King # (Auto) 0.1 Eos # (Auto) 0.0 Baso # (Auto) 0.0 Abs Immat Gran (auto) 0.01 Absolute Neuts (auto) 0.7 L Absolute Nucleated RBC 4.460 H Nucleated RBC % (auto) 200.9 H Smear Tech's Comments VERIFIED PT 26.0 H INR 2.3 H D Anion Gap 13 Estim Creat Clear Calc 56.4 Estimated GFR 56 Random Glucose 122 H Calcium 9.1 Magnesium 2.0 Total Bilirubin 2.2 H AST 46 H ALT 14 Alkaline Phosphatase 78 Lactate Dehydrogenase 423 H B-Natriuretic Peptide 208 H Total Protein 6.7 Albumin 3.7 Influenza Type A (PCR) NEGATIVE Influenza Type B (PCR) NEGATIVE RSV RNA Qual (PCR) NEGATIVE SARS-CoV-2 RNA (RT-PCR) NEGATIVE Blood Type B Positive Antibody Screen NEGATIVE Crossmatch See Detail Imaging Radiologist's Impressions: Impressions Chest X-Ray 02/07/25 14:05 IMPRESSION: No active pulmonary disease. No significant interval change. Electronically signed by: Darwin Polanco MD 02/07/2025 02:23 PM EDT RP Assessment and Plan (1) Acute on chronic anemia: Status: Acute (2) Acute exacerbation of CHF (congestive heart failure): Qualifiers: Heart failure type: combined systolic and diastolic Qualified Code(s): I50.43 - Acute on chronic combined systolic (congestive) and diastolic (congestive) heart failure Status: Acute (3) Chronic diastolic CHF (congestive heart failure): Status: Acute (4) History of aortic valve replacement: Status: Acute (5) CAD (coronary artery disease): Qualifiers: Coronary Disease-Associated Artery/Lesion type: unspecified vessel or lesion type [place] vs. transplanted heart: [place] heart Associated angina: without angina Qualified Code(s): I25.10 - Atherosclerotic heart disease of [place] coronary artery without angina pectoris Status: Acute (6) ICD (implantable cardioverter-defibrillator) in place: Status: Acute (7) DVT (deep venous thrombosis): Qualifiers: DVT location: lower extremity Affected thrombotic vein of extremity: unspecified lower extremity distal vein Chronicity: chronic Laterality: right Qualified Code(s): I82.5Z1 - Chronic embolism and thrombosis of unspecified deep veins of right distal lower extremity Status: Acute (8) Ulcerative colitis: Qualifiers: Ulcerative colitis location: unspecified ulcerative colitis location Digestive disease complication type: unspecified complication Qualified Code(s): K51.919 - Ulcerative colitis, unspecified with unspecified complications Status: Acute (9) Pancytopenia: Status: Acute Plan Very pleasant 84-year-old male, with a background history of CAD s/p ischemic cardiomyopathy s/p AICD, mechanical AVR on warfarin, chronic anemia, ulcerative colitis, chronic R LE DVT, lower extremity lymphedema, presents with exertional dyspnea and fatigue, sent to hospital by outpatient adult manager with acute on chronic symptomatic anemia of undetermined chronicity/etiology. Acute on chronic symptomatic anemia Mechanical AVR on warfarin (Goal INR 2-3) Chronic right lower extremity DVT Symptoms: Exertional dyspnea and fatigue. No red flags. No bleeding diathesis, hematuria, melena, hematochezia, hematemesis, bruising, petechiae, rashes, heartburn/ dyspepsia. No falls. No diet changes. INR therapeutic. No NSAIDs/ETOH. Physical: Reassuring, without concerning features. Hemoglobin 6.4 emergency room status post 1 unit PRBC. PLAN - pantoprazole 40 mg b.i.d. p.o. - monitor stools for melena/hematochezia - GI consultation - liquid diet - transfuse 1 unit PRBC with monitoring for TACO - CONTINUE WARFARIN (goal 2-3) - INR daily - in emergency, can consider immediate reversal of warfarin with initiation of heparin drip Pancytopenia Leukopenic, anemic (chronically), thrombocytopenia. Progressive changes over time were noted in EMR. PLAN - monitor platelets - monitor for signs and symptoms of impending infection - consider Hematology evaluation outpatient - urine and serum electrophoresis, CARMEL Acute exacerbation of chronic Ischemic HFrEF Status post AICD Intermittent compliance with furosemide, as per Cardiology and ED evaluation. Lower extremity edema and exertional dyspnea. Probable fatigability compounded by CHF. PLAN - I/O q.6 hourly - daily weights - Furosemide 60mg BID IV - consider extra 40 mg IV furosemide post transfusion to prevent TACO - continue metoprolol 50 mg OD p.o. - HOLD lisinopril 40 mg OD p.o. (prevent hypotension) - continue atorvastatin 40 mg OD p.o. - no aspirin - on warfarin Ulcerative colitis History recorded in chart. No active management. Possible etiology of acute on chronic anemia. PLAN - GI consultation - clear liquid diet - possible need for EGD/colonoscopy during inpatient stay as per GI recommendations [employer]AL[employer] - VTE: Warfarin, INR 2-3 - CODE STATUS: Full - DIET: Clear liquid diet Total time managing care of this patient today: 45 minutes. Quality Stroke Does the patient have a stroke diagnosis?: No VTE Prior VTE?: Yes VTE Risk Level:: Medical - moderate - high VTE Device Contraindication: N/A - Device Ordered VTE Drug Contraindication: N/A - Med Ordered
--- NOTE | 2025-02-07 16:01 | PHA.MEDREC ---
Addendum entered by Kimberly Puga [facility] 02/07/25 16:08: Patient is taking 40 mg furosemide in evening and 80 mg (2 tablets) in the morning Addendum entered by Kimberly Puga [facility] 02/07/25 16:08: REVIEWED Original Note: Pharmacy Consult ? Medication Reconciliation Pharmacy has completed the medication reconciliation. Spoke with pt and he confirmed his medications. Pt confirmed he uses Cyclobenzaprine 10mg tabs as needed for muscle spasms, he takes Furosemide 2-20mg (40mg) in the morning and 1 tab (20mg) daily@1700; pt states he suppose to take 2 tabs BID but taking 4 pills in a day is too much for the pt and pt pcp aware he stated and he confirmed his Warfarin 5mg tabs and confirmed he got his INR re-tested this morning and took 2.5mg yesterday.
[2025-02-07] MEDS: 0.9 % Sodium Chloride Flush 3 ML SYRINGE IVFLUSH (17:16)
[2025-02-07] MEDS: Furosemide 100 MG/10 ML VIAL 60 MG IVPUSH (17:56)
--- NOTE | 2025-02-07 18:25 | PM.EVENT ---
Event Note Date of Service: 02/07/25 Event Note: GI Consult-Full note dictated--History from patient, the EMR, and his RN Imp: 84 yo male on Coumadin s/p an AVR and CABG with a new anemia as compared to earlier in the year, but with an associated pancytopenia and no new GI symptoms nor any signs of active GI bleeding. He has an elevated MCV but normal B12 and Folate. He also has an abnormal diff on the WBC and an elevated LDH. This seems to be a new primary Hematologic issue, ? CLL and/or hemolysis, as opposed to a primary GI process. Rec: Hematology consult. Of note, I did review the potential need for an upper endoscopy and colonoscopy if he is shown to be iron deficient so as to R/O a GI neoplasm, AVM's, polyps, etc. However, he adamantly refused the GI procedures despite my explanations. Therefore, I would advance his diet, change to a po PPI, check Iron studies, and replete Iron with IV or po if levels are low. Please let me know if I can be of any further assistance. Thanks Time Spent With Patient Time: Total time managing care of this patient today ____ minutes.
[2025-02-07 18:53] LABS: Iron 277 mcg/dL (45-160); Percent Iron Saturation 92 % (15-50); Total Iron Binding Capacity 302 mcg/dL (228-428); Unsaturated Iron Binding < 25 ug/dL
[2025-02-07 19:00] LABS: Ferritin 975 ng/mL (20-250)
[2025-02-07 20:55] LABS: Hemoglobin 7.1 g/dl (14.0-18.0); Imm Gran Abs Auto 0.01 X10*3/uL (0.00-0.03); Imm Gran Pct Auto 0.5 % (0.0-0.4); Lymphocytes Absolute Auto 1.2 X10*3/uL (1.2-4.9); MANUAL DIFF FLAG SCAN; Mean Corpuscular HGB Conc 34.6 g/dl (31.0-36.0); Mean Corpuscular Hemoglobin 34.1 pg (27.0-33.0); Mean Corpuscular Volume 98.6 fL (80.0-98.0); NRBC Abs Auto 3.160 X10*3/uL (0.0-0.012); Red Blood Count 2.08 X10*6/uL (4.60-5.80); SCAN SMEAR FLAG 1; White Blood Count 1.9 X10*3/uL (4.8-10.8)
[2025-02-07 20:56] LABS: NRBC Pct Auto 164.6 /100WBC (0.0-0.2)
[2025-02-07 21:03] LABS: Hematocrit 20.5 % (42.0-52.0); Platelet Count 44 X10*3/uL (160-400)
--- NOTE | 2025-02-07 23:59 | CONS_ITS ---
DATE OF SERVICE: 02/07/2025 REASON FOR CONSULTATION: Anemia. HISTORY OF PRESENT ILLNESS: The patient is an 84-year-old male on chronic Coumadin in relation to a previous aortic valve replacement, as well as coronary artery bypass, who presents to the ER today with progressive weakness and shortness of breath. He was found to be markedly anemic. This anemia appears to be new compared to laboratories from August. The patient denies any new GI symptoms. He specifically denies any history of heartburn, dysphagia, early satiety, nausea, nor vomiting. He reports his bowel movements have been regular without any melena nor hematochezia. He denies any abdominal pain, signs of jaundice, nor unintentional weight loss. He did have 2 colonoscopies in 1997 and 1998, describing some chronic appearance of colitis, although he reports that this was during a time, in which he had an infectious diarrhea and this ultimately resolved. He has not required any further medication for colitis and has never had any followup colonoscopies since the one in 1998. He denies any known family history of colorectal cancer, inflammatory bowel disease, or celiac disease. Aside from the Coumadin, he does not use any chronic aspirin or NSAIDs. He does not smoke nor use any significant amounts of alcohol. After admission, the patient has received blood transfusions and does feel somewhat better in regard to his dyspnea and fatigue. MEDICATIONS: At home included atorvastatin, furosemide, cyclobenzaprine, lisinopril, metoprolol, warfarin, vitamins, and acetaminophen. PAST MEDICAL HISTORY: Coronary artery bypass with aortic valve replacement. He describes placement of an AICD. He has a history of hypertension, hyperlipidemia, CHF, edema, and obesity. He denies a history of MA, diabetes, stroke, nor any lung disease. SOCIAL HISTORY: He is single. He currently does not smoke nor use any alcohol. FAMILY HISTORY: Noncontributory. REVIEW OF SYSTEMS: CONSTITUTIONAL: He has been feeling progressively weak and short of breath. CARDIAC: No chest pain. PULMONARY: No coughing or hemoptysis. GI: As above. URINARY: No dysuria. No hematuria. NEUROLOGIC: No headache or seizures. PHYSICAL EXAMINATION: GENERAL: The patient is a pleasant, alert, pale male. SKIN: Warm and dry. HEENT: Anicteric sclerae. Moist mucous membranes. CARDIAC: Normal S1, S2. ABDOMEN: Soft, nondistended, nontender without mass. EXTREMITIES: Reveal bilateral pretibial edema. LABORATORY DATA: White blood cell count 2.2, hemoglobin 6.5, MCV 103, platelets 46,000. In August, he had a white blood cell count of 5.6, hemoglobin 13.8, and platelets of 161,000 with a normal differential. His differential on this admission showed only 32% neutrophils and 62% lymphocytes. His PT was 26 with INR 2.3. Chemistries revealed normal electrolytes. BUN 22, creatinine 1.2. Iron was 277, iron saturation 92% and ferritin pending. Total bilirubin was 2.2, AST 46, ALT 14, alkaline phosphatase 78, LDH 423, albumin 3.7. Chest x-ray was negative for any acute pulmonary process. IMPRESSION: Given the patient's presentation and his laboratories, I do not think his anemia is related to any primary gastrointestinal process. He does not appear to be having any new gastrointestinal symptoms and has not had any obvious evidence of gastrointestinal blood loss. Given what appears to be pancytopenia and abnormal differential on the white blood cell count, this does appear to be a primary hematologic process such as leukemia and/or hemolysis. At this point, I did advise the patient that if indeed he was iron deficient, then he would require an upper endoscopy and colonoscopy, which he adamantly refused anyway. I advised him that it would be important to exclude any type of gastrointestinal neoplasm if he is iron deficient. Nonetheless, he did refuse these procedures. In any event, I think the main issue is that of a hematologic issue and he should have a Hematology consult. I would advance his diet and change him over to an oral PPI just in light of his thrombocytopenia and chronic need for Coumadin. At this point, I do not think he needs an upper endoscopy or colonoscopy. Thank you for the consultation. MD ADELE Arteaga/ELODIA / [phone] SINDHU
[2025-02-08] VITALS (10 sets, daily range): BP systolic 112–139; BP diastolic 42–75; PULSE 64–78; RESP 16–20; TEMP 36.3–36.8; O2SAT 95–99
[2025-02-08 07:23] LABS: INTERNATIONAL NORM RATIO 2.2 (0.9-1.1); Prothrombin Time 24.9 SEC (10.9-12.4)
[2025-02-08 07:25] LABS: Hemoglobin 7.1 g/dl (14.0-18.0); Imm Gran Abs Auto 0.00 X10*3/uL (0.00-0.03); Imm Gran Pct Auto 0.0 % (0.0-0.4); Lymphocytes Absolute Auto 0.9 X10*3/uL (1.2-4.9); MANUAL DIFF FLAG SCAN; Mean Corpuscular HGB Conc 34.1 g/dl (31.0-36.0); Mean Corpuscular Hemoglobin 33.8 pg (27.0-33.0); Mean Corpuscular Volume 99.0 fL (80.0-98.0); NRBC Abs Auto 2.320 X10*3/uL (0.0-0.012); Red Blood Count 2.10 X10*6/uL (4.60-5.80); SCAN SMEAR FLAG 1
[2025-02-08 07:26] LABS: NRBC Pct Auto 154.7 /100WBC (0.0-0.2); Platelet Count 45 X10*3/uL (160-400); White Blood Count 1.5 X10*3/uL (4.8-10.8)
[2025-02-08 07:34] LABS: Anion Gap 12 (12-20); Blood Urea Nitrogen 17 mg/dL (9-16); Calcium 8.8 mg/dL (8.4-10.2); Carbon Dioxide 23 mmol/L (22-29); Chloride 109 mmol/L (96-108); Creatinine Clr Calc Pharmacy 68.0; Estimated Glomerular Filt Rate > 60; Magnesium 2.0 mg/dL (1.6-2.6); Potassium 3.8 mmol/L (3.3-5.1); Sodium 140 mmol/L (135-145)
[2025-02-08 07:36] LABS: B Type Natriuretic Peptide 185 pg/mL (<100)
[2025-02-08 07:51] LABS: Hematocrit 20.8 % (42.0-52.0)
--- NOTE | 2025-02-08 08:56 | P.CNHO_ITS ---
Subjective - Subjective Chief complaint: Weakness/shortness of breath Patient: new to practice Consult date: 02/08/25 Primary Care Provider: Tim Shaw MD Practice Coordinator Utilized?: No - Spanish Speaking HPI - Consult Narrative Reason for consult: Acute anemia Narrative: Tad Villar is a 84 year old male who is admitted for symptoms of shortness of breath and easy fatigability he was found to have severe anemia with a hemoglobin below 7 gram/dL. His past medical history significant for CAD, ischemic cardiomyopathy status post AICD, mechanical AVR on warfarin, ulcerative colitis, right lower extremity DVT/lymphedema. Patient has been on warfarin for several years. His last INR was 2.3. He denies any complaints of chest pain, chest pressure, palpitations, dizziness, loss of consciousness. The patient denies hematuria, melena, hematochezia, hematemesis, bruising, petechiae, rashes, heartburn/ dyspepsia. No new falls or injuries. Has been compliant with warfarin without new medications or dietary changes. INR has been within therapeutic range based on evaluation by warfarin nurse Q 1- 2 weeks. No NSAID use, no EtOH. He lives alone at home with his dog. He has no children. A nephew is his healthcare proxy. Review of Systems - Constitutional Reports as per HPI, Reports fatigue, Reports lack of energy, Reports malaise, Denies night sweats, Denies poor appetite, Denies weight loss - Cardiovascular Reports no additional cardiovascular complaints, Denies chest pain with activity - Respiratory Reports dyspnea - Neurologic Reports no additional neurologic complaints, Denies abnormal speech, Denies dizziness, Denies headache(s), Denies numbness, Denies tingling, Reports weakness Oncology Screenings - ECOG Performance Status ECOG Performance Status: 2 [facility] Medical History: Medical History (Last Reviewed 02/07/25 @ 18:10 by Kelley Wong RN) Annual physical exam Arthritis Bilateral knee pain Cardiomyopathy Chronic anemia Current use of anticoagulant therapy Fall on ice Fatigue History of bad fall History of left bundle branch block Hypertension Leg swelling Morbid obesity with BMI of 40.0-44.9, adult Multiple joint pain Peripheral edema Family History: Family History (Last Reviewed 02/07/25 @ 16:08 by Junie Ye MD) Father Kidney problem Mother Cancer Surgical History: Surgical History (Last Reviewed 02/07/25 @ 18:10 by Kelley Wong RN) History of aortic valve replacement History of cardiac cath Social History: Social History (Last Reviewed 02/07/25 @ 16:08 by Junie Ye MD) Living Situation History: Household Members: None Housing: House Do you presently have visiting nurse or other home services: No Tobacco History: Patient Tobacco Use Status: Former Tobacco user Years Smoked: 23 +/- Advance Directives: Advance Directives Date on File: 02/07/25 Occupation Assessmet: service: No Current occupational status: retired Home Medications and Allergies Current Medications: Current Medications Acetaminophen (Acetaminophen 325 Mg Tablet) 650 mg PO Q6H PRN PRN Reason: Pain, Mild 1-3,fever,headache Atorvastatin Calcium (Atorvastatin Calcium 40 Mg Tablet) 40 mg PO DAILY COUNT INCLUDES THE [facility] Cyclobenzaprine HCl (Cyclobenzaprine Hcl 10 Mg Tablet) 10 mg PO Q8H PRN PRN Reason: Muscle Spasm Furosemide (Furosemide 100 Mg/10 Ml Vial) 60 mg IVPUSH BID@0900,1800 COUNT INCLUDES THE [facility]; Protocol Last Admin: 02/07/25 17:56 Dose: 60 mg Magnesium Hydroxide (Milk Of Magnesia 30 Ml Oral.Susp) 30 ml PO DAILY PRN PRN Reason: Constipation Melatonin (Melatonin 3 Mg Tablet) 6 mg PO BEDTIME PRN PRN Reason: Insomnia Metoprolol Succinate (Metoprolol Succinate Er 50 Mg Tab.Er.24h) 50 mg PO DAILY COUNT INCLUDES THE [facility]; Protocol Omeprazole (Omeprazole 20 Mg Capsule.Dr) 20 mg PO DAILY@0630 COUNT INCLUDES THE [facility] Last Admin: 02/08/25 05:38 Dose: 20 mg Sodium Chloride (0.9 % Sodium Chloride Flush 3 Ml Syringe) 3 ml IVFLUSH [facility] Last Admin: 02/08/25 02:12 Dose: Not Given Warfarin Sodium (Warfarin Sodium 5 Mg Tablet) 5 mg PO MOTH@1800 COUNT INCLUDES THE [facility] Last Admin: 02/07/25 17:56 Dose: 5 mg Warfarin Sodium (Warfarin Sodium 2.5 Mg Tablet) 2.5 mg PO SUTUWEFRSA@1800 COUNT INCLUDES THE [facility] Home Medications ?Medication ?Instructions ?Recorded ?Confirmed ?Type multivit,calc,mins-folic 240 1 tab PO DAILY 07/26/21 02/07/25 History mcg-vit K1 30 mcg-lycopene 300 mcg tablet (One-A-Day Men's Complete) acetaminophen 650 mg 650 mg PO Q6H PRN Pain 07/22/24 02/07/25 History tablet,extended release cyclobenzaprine 10 mg tablet 10 mg PO Q8H PRN muscle spasm 02/07/25 0 02/07/25 History furosemide 40 mg tablet 40 mg PO DAILY@1700 02/07/25 02/07/25 Hi story furosemide 40 mg tablet (Lasix) 80 mg PO DAILY 02/07/25 02/07/25 History warfarin 5 mg tablet 2.5 mg PO SUTUWEFRSA@179902/07/2502/07 History warfarin 5 mg tablet 5 mg PO MOTH@1800 02/07/25 02/07/25 Hist ory Allergies Allergy/AdvReac Type Severity Reaction Status Date / Time Penicillins (PENICILLINS) Allergy Severe HIVES Verified 02/07/25 13:05 Physical Exam Vital signs: Vital Signs Temp 97.5 F 02/08/25 07:46 Pulse 69 02/08/25 07:46 Resp 18 02/08/25 07:46 BP 139/66 02/08/25 07:46 Pulse Ox 96 02/08/25 07:46 O2 Del Method Room Air 02/08/25 07:46 Intake & Output 02/07/25 02/08/25 02/08/25 18:59 06:59 18:59 Intake Total 350 / 1030 680 / 1030 Output Total 1500 / 1500 Balance 350 / -470 -820 / -470 Urine Output (Average ml/kg/hr) 1.07 1.07 Intake: Intake, Oral Amount 680 / 680 Intake (Blood Product) Amount 350 / 350 Red Blood Cells (E0336) Unit 350 / 350 [id number] Output: Output, Urine Amount 1500 / 1500 Other: Meal Refused No NPO No Dinner % Eaten 100% Eating (Feeding) Ability Independent Number of Unmeasured Voids 1 Number of Bowel Movements 1 Urine purwick Urine Color Yellow Last Bowel Movement 02/07/25 02/07/25 02/07/25 Stool Incontinent Stool Amount Large Stool Color Brown Stool Consistency Loose Weight 116.573 kg Weight 116.573 kg - Constitutional Present: no acute distress, obese - Routine HEENT Exam Head: Present: normal inspection Eye: Present: EOMI, PERRL - Routine Neck Exam Present: supple - Routine Respiratory Exam Present: CTAB. Absent: accessory muscle use - Routine Cardiovascular Exam Cardiovascular: Present: RRR, S1, S2 - Routine Abdominal Exam Present: soft - Routine Extremities Exam Present: pedal edema - Routine Skin Exam Present: intact - Routine Neurological Exam Present: alert, oriented X3 Hem/Onc Consult Result - Labs CBC & Chem 7: 02/08/25 07:07 02/08/25 07:07 Labs: Short CBC 02/07/25 02/07/25 02/08/25 Range/Units 13:18 20:38 07:07 WBC 2.2 L 1.9 L 1.5 L (4.8-10.8) X10*3/uL Hgb 6.5 L* 7.1 L 7.1 L (14.0-18.0) g/dl Hct 19.8 L* 20.5 L* 20.8 L* (42.0-52.0) % Plt Count 46 L 44 L 45 L (160-400) X10*3/uL BMP 02/07/25 02/08/25 13:18 07:07 Sodium 141 140 Potassium 3.7 3.8 Chloride 109 H 109 H Carbon Dioxide 23 23 BUN 22 H 17 H Creatinine 1.23 1.02 Calcium 9.1 8.8 Liver Function 02/07/25 Range/Units 13:18 Total Bilirubin 2.2 H (0.0-1.0) mg/dL Direct Bilirubin 0.6 H (0.0-0.5) mg/dL AST 46 H (5-37) U/L ALT 14 (0-40) U/L Alkaline Phosphatase 78 (39-117) U/L Albumin 3.7 (3.5-5.0) g/dL Assessment and Plan Patient Active problem list reviewed?: Yes (1) Pancytopenia Status: Acute Assessment and plan: 1. This is a 84-year-old male with multiple medical problems including CAD, right lower extremity DVT, status post AICD, heart failure who is presenting with acute anemia/pancytopenia. In 09/02/2024 his hemoglobin was 13.8 gram/dL with normal WBC and platelet count. On 02/07/2025 his hemoglobin was 7.1 gram/dL with macrocytosis, leukopenia with a WBC count of 2.1 and platelets of 48 K. peripheral smear showed increased nucleated red blood cells with dyspoiesis, occasional atypical mononuclear cells, scattered ovalocytes and elliptocytes as read by pathologist. Hematological workup shows elevated LDH of 423, ferritin of 975 normal total protein and albumin, normal serum creatinine, mildly elevated total bilirubin of 2.2. Submit vitamin B12, folate levels, blood flow cytometry and haptoglobin. If patient does not have megaloblastic anemia, suspicion is high for underlying bone marrow process such as MDS or acute leukemia. I discussed above with the patient. He was not want bone marrow biopsy or any acute interventions. He has declined treatments such as chemotherapy. He wants to be kept comfortable, agreeable for supportive care such as blood transfusions. Further recommendations to follow. I thank you for the consultation. - Time Spent With Patient Time Spent with Patient (in minutes): 20 Additional Coding: - Additional E/M codes Complex E/M visit Add On: CPT G2211
--- NOTE | 2025-02-08 08:59 | MHC.CM.PN ---
CM met with Patient at bedside and addressed the IMM with him, providing Patient with the original and a copy has been placed on the chart. Patient lives alone in a house and he uses a cane to assist with mobility. Patient is agreeable to a new referral to NA; CM has initiated and will follow for dc planning. PCP is Dr. Shaw and Patient's care is here for transport to home. Patient's Nephew/Tato is the HCP.
[2025-02-08] MEDS: 0.9 % Sodium Chloride Flush 3 ML SYRINGE IVFLUSH (09:23)
[2025-02-08] MEDS: Metoprolol Succinate ER 50 MG TAB.ER.24H PO (09:23)
[2025-02-08] MEDS: Furosemide 100 MG/10 ML VIAL 60 MG IVPUSH (09:23)
--- NOTE | 2025-02-08 10:34 | P.DS_ITS ---
DS: Providers Provider Date of Service: 02/08/25 Date of admission: 02/07/25 15:54 Date of discharge: 02/08/25 Primary care physician: Tim Shaw MD Consults: 02/07/25 16:31 Consult to Gastroenterology Routine Consulting Provider: Rc Lemus Reason for consultation: acute/chronic anemia, hx ulcertive colitis, mech.AVR on warfarin 02/07/25 18:29 Consult to Hematology / Oncology Routine Consulting Provider: [facility] Oncology/Hematology Reason for consultation: pancytopenia, ?hemolytic anemia DS: Diagnosis Discharge Diagnosis (1) Pancytopenia: Status: Acute DS: Summary Hospital Course Hospital Course: Admission [facility] Complaint: Exertional dyspnea and fatigue, severe anemia Very pleasant 84-year-old male, with a background history of CAD s/p ischemic c ardiomyopathy s/p AICD, mechanical AVR on warfarin, chronic anemia, ulcerative colitis, chronic R LE DVT, lower extremity lymphedema, presents with complaints of exertional dyspnea for the last few weeks and fatigue. PRESENTATION Patient presented to his outpatient [facility] with complaints of exertional shortness of breath for the last few weeks and fatigability. They noted worsening lower extremity edema and orthopnea, with noncompliance with furosemide. Lab work was performed, revealing severe anemia. He was sent to the emergency room for further evaluation The patient denies chest pain, chest pressure, palpitations, dizziness, loss of consciousness. The patient denies hematuria, melena, hematochezia, hematemesis, bruising, petechiae, rashes, heartburn/ dyspepsia. No new falls or injuries. Has been compliant with warfarin without new medications or dietary changes. INR has been within therapeutic range based on evaluation by warfarin nurse Q 1- 2 weeks. No NSAID use, no EtOH. EMERGENCY DEPARTMENT MANAGEMENT ECG and chest x-ray unremarkable Type and screen was performed. Patient was consented for 1 unit PRBC, and this was administered. Hospital course: Essentially he was admitted for anemia work up. He presented with hematocrit of 21 on 02/07, in august 2024 hematocrit was 41. WBC is 1.5, MCV 99, Plat 45, Neut 34, Lymp 50. Iron level is high, therefore no evidence of iron deficiency. He has been transfused 1 unit of RBC with no significant shift in H/H although he states he feels better. He has been seen by GI for possible GI work with EGD or colonoscopy and he adamantly refuses---se GI notes. He has also been seen by Heme/Onc with concern raised about possible leukemia and advised further testing with bone marrow biopsy and he refuses. Additionally due weakness, he is offered rehab therapy and he's again declining in favor of going home with [facility]. He will need a close follow up with Heme/Onc on outpatient basis and repeat labs. Of note he takes coumadin for AVR, INR is stable, Platlet count has been chronic low an unchanged, for now continuing coumading with close follow up on INR and CBC Time Attestation Discharge Coordination Time (in mins): 45 Quality: Safe Use of Opioids Does Pt have an Active Cancer Diagnosis on the Problem List?: No Quality: Stroke Does the patient have a stroke diagnosis?: No Physical Exam Vital Signs: Vital Signs: Last Vital Signs Temp 97.5 F 02/08/25 07:46 Pulse 69 02/08/25 07:46 Resp 18 02/08/25 07:46 BP 124/64 02/08/25 09:28 Pulse Ox 96 02/08/25 07:46 O2 Del Method Room Air 02/08/25 07:46 BMI result Body Mass Index 39.1 DS: Data Data Completed and Pending Labs on day of discharge: Laboratory Results - last 24 hr 02/07/25 02/07/25 02/07/25 13:18 14:50 20:38 WBC 2.2 L 1.9 L RBC 1.93 L 2.08 L Hgb 6.5 L* 7.1 L Hct 19.8 L* 20.5 L* MCV 102.6 H 98.6 H MCH 33.7 H 34.1 H MCHC 32.8 34.6 RDW 15.2 14.7 Plt Count 46 L 44 L MPV 10.9 10.9 Immature Gran % (Auto) 0.5 H 0.5 H Neut % (Auto) 32.3 L 29.2 L Lymph % (Auto) 61.7 H 64.1 H [place] % (Auto) 4.1 4.7 Eos % (Auto) 0.9 1.0 Baso % (Auto) 0.5 0.5 Lymph # (Auto) 1.4 1.2 [place] # (Auto) 0.1 0.1 Eos # (Auto) 0.0 0.0 Baso # (Auto) 0.0 0.0 Abs Immat Gran (auto) 0.01 0.01 Absolute Neuts (auto) 0.7 L 0.6 L Absolute Nucleated RBC 4.460 H 3.160 H Nucleated RBC % (auto) 200.9 H 164.6 H Smear Tech's Comments VERIFIED Smear Path Review SEE NOTE Absolute Retic Cancelled Percent Retic Cancelled Immature Retic Fraction Cancelled Retic Hgb Equivalent Cancelled PT 26.0 H INR 2.3 H D Sodium 141 Potassium 3.7 Chloride 109 H Carbon Dioxide 23 Anion Gap 13 BUN 22 H Creatinine 1.23 Estim Creat Clear Calc 56.4 Estimated GFR 56 Random Glucose 122 H Calcium 9.1 Magnesium 2.0 Iron 277 H TIBC 302 % Saturation 92 H Unsat Iron Binding < 25 Ferritin 975 H Total Bilirubin 2.2 H Direct Bilirubin 0.6 H AST 46 H ALT 14 Alkaline Phosphatase 78 Lactate Dehydrogenase 423 H Troponin I High Sens 6.9 B-Natriuretic Peptide 208 H Total Protein 6.7 Albumin 3.7 Influenza Type A (PCR) NEGATIVE Influenza Type B (PCR) NEGATIVE RSV RNA Qual (PCR) NEGATIVE SARS-CoV-2 RNA (RT-PCR) NEGATIVE Blood Type B Positive Antibody Screen NEGATIVE Crossmatch See Detail 02/08/25 07:07 WBC 1.5 L RBC 2.10 L Hgb 7.1 L Hct 20.8 L* MCV 99.0 H MCH 33.8 H MCHC 34.1 RDW 14.6 Plt Count 45 L MPV 10.6 Immature Gran % (Auto) 0.0 Neut % (Auto) 34.0 L Lymph % (Auto) 60.7 H [place] % (Auto) 4.0 Eos % (Auto) 1.3 Baso % (Auto) 0.0 Lymph # (Auto) 0.9 L [place] # (Auto) 0.1 Eos # (Auto) 0.0 Baso # (Auto) 0.0 Abs Immat Gran (auto) 0.00 Absolute Neuts (auto) 0.5 L Absolute Nucleated RBC 2.320 H Nucleated RBC % (auto) 154.7 H Smear Tech's Comments VERIFIED Smear Path Review Absolute Retic Percent Retic Immature Retic Fraction Retic Hgb Equivalent PT 24.9 H INR 2.2 H Sodium 140 Potassium 3.8 Chloride 109 H Carbon Dioxide 23 Anion Gap 12 BUN 17 H Creatinine 1.02 Estim Creat Clear Calc 68.0 Estimated GFR > 60 Random Glucose 97 Calcium 8.8 Magnesium 2.0 Iron TIBC % Saturation Unsat Iron Binding Ferritin Total Bilirubin Direct Bilirubin AST ALT Alkaline Phosphatase Lactate Dehydrogenase Troponin I High Sens B-Natriuretic Peptide 185 H Total Protein Albumin Influenza Type A (PCR) Influenza Type B (PCR) RSV RNA Qual (PCR) SARS-CoV-2 RNA (RT-PCR) Blood Type Antibody Screen Crossmatch Discharge Plan Discharge Anticipated Discharge Date/Time: 02/08/25 10:47 Patient Disposition: Home Health Service Discharge Diagnosis: Acute blood loss anemia, Pancytopenia, acute on chronic heart failure Referrals: Tim Shaw MD [Primary Care Provider, Internal Medicine] - 1 Week Discharge Medications: No Action atorvastatin 40 mg tablet 40 mg PO DAILY Qty: 90 1RF lisinopril 40 mg tablet 40 mg PO DAILY Qty: 90 1RF metoprolol succinate 50 mg tablet extended release 24 hr 50 mg PO DAILY Qty: 90 3RF warfarin 5 mg tablet 5 mg PO DAILY Qty: 90 3RF Protocol: Dose Management Condition: Friday (Week One) Dose/Route: 2.5 mg Instruction: 0.5 x 5 mg tablets Condition: Friday Dose/Route: 5 mg Instruction: 1 x 5 mg tablet Condition: Friday Dose/Route: 2.5 mg Instruction: 0.5 x 5 mg tablets Condition: Friday Dose/Route: 2.5 mg Instruction: 0.5 x 5 mg tablets Condition: Dose/Route: 5 mg Instruction: 1 x 5 mg tablet Condition: Friday Dose/Route: 2.5 mg Instruction: 0.5 x 5 mg tablets Condition: Friday Dose/Route: 2.5 mg Instruction: 0.5 x 5 mg tablets Condition: Friday (Week Two) Dose/Route: 2.5 mg Instruction: 0.5 x 5 mg tablets Condition: Friday Dose/Route: 5 mg Instruction: 1 x 5 mg tablet Condition: Friday Dose/Route: 2.5 mg Instruction: 0.5 x 5 mg tablets Condition: Friday Dose/Route: 2.5 mg Instruction: 0.5 x 5 mg tablets Condition: Dose/Route: 5 mg Instruction: 1 x 5 mg tablet Condition: Friday Dose/Route: 2.5 mg Instruction: 0.5 x 5 mg tablets Condition: Friday Dose/Route: 2.5 mg Instruction: 0.5 x 5 mg tablets Protocol Text: Adjustment Start Date: Friday02/07/25 INR Value: 2.0 INR Date: 02/07/25 Recheck Date: 02/14/25 Rx Instructions: Take 1 tablet daily or as directed by the anticoagulation clinic provider furosemide 40 mg tablet 40 mg PO DAILY@1700 warfarin 5 mg tablet 5 mg PO MOTH@1800 warfarin 5 mg tablet 2.5 mg PO SUTUWEFRSA@1800 cyclobenzaprine 10 mg tablet 10 mg PO Q8H PRN (Reason: muscle spasm) furosemide [Lasix] 40 mg tablet 80 mg PO DAILY Rx Instructions: 40 mg orally 2 tablets in the am and 1 tablet in the pm; One-A-Day Men's Complete 240 mcg-30 mcg- 300 mcg tablet 1 tab PO DAILY acetaminophen 650 mg tablet extended release 650 mg PO Q6H PRN (Reason: Pain) (DME) cane Device See Rx Instructions .Route Qty: 1 1RF Rx Instructions: Folding cane please.Use daily due to unsteady on feet and recurrent falls Diet: Advance to usual diet Activity on Discharge: As tolerated Stand Alone Forms: Patient Portal Discharge page Print Language: Cambodian Care Plan Goals: work up and recovery from acute anemia and pancytopenia, Health Concerns: concern for leukemia pancytopenia Plan of Treatment: Outpatient follow up with hematology home with VNA services Assessment: see above
[2025-02-08 11:53] LABS: Folate 13.0 ng/mL (> or = 4.0); Vitamin B12 316 pg/mL (200-900)
[2025-02-08 15:17] LABS: Hematocrit 24.9 % (42.0-52.0); Hemoglobin 8.6 g/dl (14.0-18.0); Mean Corpuscular HGB Conc 34.5 g/dl (31.0-36.0); Mean Corpuscular Hemoglobin 33.5 pg (27.0-33.0); Mean Corpuscular Volume 96.9 fL (80.0-98.0); NRBC Abs Auto 2.950 X10*3/uL (0.0-0.012); Red Blood Count 2.57 X10*6/uL (4.60-5.80)
[2025-02-08 15:46] LABS: NRBC Pct Auto 143.2 /100WBC (0.0-0.2); Platelet Count 40 X10*3/uL (160-400); White Blood Count 2.1 X10*3/uL (4.8-10.8)
--- NOTE | 2025-02-08 16:13 | P.F2F_ITS ---
Service Date Service Date: 02/08/25 Encounter Date of encounter: 02/08/25 Reasons for Services Signs and symptoms assessed: weakness, severe anemia Reason for correction: monitoring of PT/INR and medication management Homebound: Leaving the home is medically contraindicated at this time without the asist of a device and/or another person due th the listed conditions above and below. Reason homebound: unsteady gait / fall risk, weakness related to hospital stay and unable to drive Homebound supporting statement: homebound due to weakness, severe anemia, presently not driving and therefore needs the assistance of another person Certification: Based on the above findings, I certify that this patient is confined to the home and needs intermittent correction care, physical therapy and/or speech therapy, or continues to need occupational therapy. The patient is under my care, and I have initiated the establishment of the plan of care. The patient will be followed by a physician who will periodically review the plan of care. Time Spent With Patient Time: Total time managing care of this patient today ____ minutes.
--- NOTE | 2025-02-08 16:14 | MHC.CM.PN ---
Patient has been medically cleared for dc to home today, with services; [facility] is aware of today's dc.
[2025-02-09 21:24] LABS: Prot Elec - Albumin 3.6 g/dL (3.8-4.8); Prot Elec - Alpha1 0.4 g/dL (0.2-0.3); Prot Elec - Alpha2 0.5 g/dL (0.5-0.9); Prot Elec - Beta 1 0.4 g/dL (0.4-0.6); Prot Elec - Beta 2 0.4 g/dL (0.2-0.5); Prot Elec - Gamma 1.2 g/dL (0.8-1.7); Prot Elec - Total Protein 6.5 g/dL (6.1-8.1)
[2025-02-10 14:15] LABS: PEU-Protein Creat Ratio Rand 0.184 (0.025-0.148); PEU-Rand. Prot/Creat Ratio 184 mg/g creat (25-148); PEU-Random Ur. Gamma Globulin 38 %; PEU-Random Urine A1 Globulin 8 %; PEU-Random Urine A2 Globulin 13 %; PEU-Random Urine Albumin 24 %; PEU-Random Urine Beta Globulin 18 %; PEU-Random Urine Creatinine 98 mg/dL (20-320); PEU-Random Urine Protein 18 mg/dL (5-25)
== END 2025-02-08 16:35 | disposition home health service (06) | DRG 811 ==
LOC: HO.ED 14:53 → HO.EDOVER 16:11 → HO.IMC 16:30
PROVIDERS: Hospitalist; Internal Medicine; Nurse Practitioner Family; Physician Assistant Medical; Admitting Provider Hospitalist; Emergency Provider Emergency Medicine; PCP Internal Medicine; Visit Provider Internal Medicine
DX: D62 Acute posthemorrhagic anemia (principal); I50.23 Acute on chronic systolic (congestive) heart failure; K51.90 Ulcerative colitis, unspecified, without complications; I82.5Z1 Chronic embolism and thrombosis of unspecified deep veins of right distal lower extremity; D61.818 Other pancytopenia; I25.10 Atherosclerotic heart disease of native coronary artery without angina pectoris; I25.5 Ischemic cardiomyopathy; Z20.822 Contact with and (suspected) exposure to COVID-19; Z95.810 Presence of automatic (implantable) cardiac defibrillator; Z95.2 Presence of prosthetic heart valve; Z95.1 Presence of aortocoronary bypass graft; Z87.891 Personal history of nicotine dependence; Z79.01 Long term (current) use of anticoagulants; Z79.899 Other long term (current) drug therapy
CPT/HCPCS: 36415; 71046; 80048; 80053; 82248; 82570; 82607; 82728; 82746; 82784; 83010; 83540; 83615; 83735; 83880; 84156; 84165; 84166; 84484; 85025; 85027; 85610; 86334; 86335; 86850; 86880; 86900; 86901; 86923; 87637; 88184; 88185; 93005; 97161; 99285; J1938; P9016

== ENCOUNTER → 2025-02-07 13:02 | Outpatient (BNV) | payer MEDICARE, SELFPAY | PROVIDERS: Emergency Provider Emergency Medicine; PCP Internal Medicine; Visit Provider Radiology Diagnostic Radiology | DX: R06.02 Shortness of breath (principal) | CPT/HCPCS: 71046 ==

== ENCOUNTER → 2025-02-07 15:54 | Outpatient (BNV) | payer MEDICARE, SELFPAY | PROVIDERS: Admitting Provider Hospitalist; Emergency Provider Emergency Medicine; PCP Internal Medicine; Visit Provider Hospitalist | DX: D64.9 Anemia, unspecified (principal); R53.1 Weakness | CPT/HCPCS: G0180 ==

== ENCOUNTER → 2025-02-07 15:54 | Outpatient (BNV) | payer MEDICARE, SELFPAY | PROVIDERS: Admitting Provider Hospitalist; Emergency Provider Emergency Medicine; PCP Internal Medicine; Visit Provider Internal Medicine | DX: D61.818 Other pancytopenia (principal); D64.9 Anemia, unspecified; I82.401 Acute embolism and thrombosis of unspecified deep veins of right lower extremity | CPT/HCPCS: 99222 ==

== ENCOUNTER → 2025-02-15 08:30 | Outpatient (REF) | payer MEDICARE, SELFPAY ==
--- NOTE | 2025-02-15 08:34 | CA_ITS ---
Transthoracic Echocardiogram Patient (Last, First, Middle): Tad Villar J Gender: Male Date of : 1940 Age: 84 Procedure Date: 02/15/2025 Procedure Type: Transthoracic Echocardiogram Location: OP Height: 172.72 cm Weight: 116.58 kg BSA: 2.27 m2 Heart Rate: bpm BP: 130 / 78 mmHg Lean Manufacturing Leader: Referring MD: Timothy Jade MD Drop Press Hand: Timothy Jade MD Symptoms: I50.32 - Chronic diastolic (congestive) heart failure Study Quality: Fair ECG Rhythm: Sinus Conclusions: - Normal left ventricular size and systolic function. There is mildly increased left ventricular wall thickness. The visually estimated ejection fraction is between 55-60%. - Mildly increased right ventricular cavity size. There is low normal right ventricular systolic function. There is an ICD wire seen in the right ventricle. - Mechanical aortic valve with elevated gradients compared to previous study. The peak aortic velocity is 3.13 m/s. The mean gradient is 21 mmHg. The aortic valve area is 1.21 cm2. There is no aortic valve regurgitation. Findings Left Ventricle Normal left ventricular size and systolic function. There is mildly increased left ventricular wall thickness. The visually estimated ejection fraction is between 55-60%. There is no evidence of regional wall motion abnormalities. Diastolic function is indeterminate on the basis of available data. Right Ventricle Mildly increased right ventricular cavity size. There is low normal right ventricular systolic function. There is an ICD wire seen in the right ventricle. Atria The left atrium is normal in size. The right atrium was not well visualized. Aortic Valve Mechanical aortic valve with elevated gradients compared to previous study. The peak aortic velocity is 3.13 m/s. The mean gradient is 21 mmHg. The aortic valve area is 1.21 cm2. There is no aortic valve regurgitation. Mitral Valve There is moderate mitral annular calcification. There is no mitral valve regurgitation. There is no mitral valve stenosis. Pulmonic Valve The pulmonic valve is normal. There is trace pulmonic valve regurgitation. Tricuspid Valve Normal tricuspid valve structure. There is mild tricuspid valve regurgitation. Normal right atrial pressure. There is no evidence of pulmonary hypertension. Great Vessels There is mild dilatation of the ascending aorta measuring 4.10 cm. The visualized portions of the pulmonary artery and branches are normal. Venous The inferior vena cava is normal in size and collapses greater than 50% with inspiration. Pericardium/Pleural There is no evidence of pericardial effusion. Prior Study Comparison Changes noted compared to prior study dated: 08/11/2023. Increased gradients across the AV-recent anemia. Measurements 2D Linear Measurements IVSd: 1.25 0.6-0.9/0.6-1.0 cm LVIDd: 4.95 3.9-5.3/4.2-5.9 cm LVIDd Index: 2.18 2.4-3.2/2.2-3.1 cm/m2 LVIDs: 3.37 2.0-3.6 cm LVPWd: 1.24 0.7-1.1 cm Ao Root: 3.50 2.1-3.5 cm LA Diam: 4.50 2.7-3.8/3.0-4.0 cm LAIDs Index: 1.98 1.5-2.3 cm/m2 LV Mass: 302.17 67-162/88-224 g LV Mass Index: 133.11 43-95/49-115 g/m2 LVOT Diam: 2.10 3.0+(-)1.3 cm 2D Systolic Function EF 4C: 57.10 >55% EF 2C: 63.00 >55% EF BiP: 58.00 >55% Mitral Valve MV VTI: 0.41 MV Pk Jordi: 1.19 MV Mn Jordi: 0.68 MV Pk Grad: 6.00 MV Mn Grad: 2.00 MV Pk E: 0.91 MV PK A: 1.12 MV Decel Time: 277.00 E/A: 0.80 E'Lateral: 6.64 E'Medial: 6.09 E/E' Med: 15.00 E/E' Lat: 13.80 PHT: 81.00 MVA PHT: 2.72 MVA Continuity: 1.64 Decel Fountain: 3.29 Aortic Valve AoV Pk Jordi: 3.13 AoV Mn Jordi: 2.09 AoV VTI: 0.55 AoV Pk Grad: 39.00 Aov Mn Grad: 21.00 NA Cont.VTI: 1.21 LVOT LVOT Pk Jordi: 0.97 LVOT Mn Jordi: 0.68 LVOT VTI: 0.19 LVOT Pk Grad: 4.00 LVOT Mn Grad: 2.00 LVOT Diam: 2.10 LVOT Area: 3.46 Diastolic Function MV Pk E: 0.91 MV Pk A: 1.12 E/A: 0.80 E'Medial: 6.09 E/E' Med: 15.00 E' Laterial: 6.64 E/E' Lat: 13.80 Right Ventricle TAPSE (mm): 21.00 TVS' Jordi: 10.00 Tricuspid Valve TR Pk Jordi: 2.75 TR Pk Grad: 30.00 RA Press: 3.00 RVSP: 33.00 Great Vessels Aorta Ao Root-2D: 3.50 2.0-3.7 cm Ao Asc: 4.10 2.1-3.4 cm Pulmonary Valve PV Pk Jordi: 1.56 Peak PV Grad: 10.00 Updated in Other Vendor System with Status of Final Timothy Jade MD electronically signed on 02/15/2025 8:21:51 PM with status of Final
--- OUTSIDE RECORDS SUMMARY | 2025-02-15 09:08 | XMS_ITS | Encounter Summary ---
Author Organization [facility] Address [address] [place] [address] Phone Care Team Providers Care Road Train Driver Name Role Phone Shadi Sevilla MD Primary Care Provider [phone] Encounter Details Date Type Department Care Team (Late st Contact Info) Description 05/18/2018 Ancillary Orders [facility] [address] [place] [address] Angel Bennett MD [address] [address] [email or web address] Social History Tobacco Use Types Packs/Day Years [...] on filedocumented in this encounter Care Teams Road Train Driver Relationship Specialty Start Date End Date Shadi Sevilla MD PCP - General 04/03/17 documented as of this encounter Additional Source Comments The information contained in this document represents components of the legal health record. It is not the complete legal health record.[facility]
--- OUTSIDE RECORDS SUMMARY | 2025-02-15 09:08 | XMS_ITS | Encounter Summary ---
Author Organization [facility] Address [address] [place] [address] Phone Care Team Providers Care Motion Pictures Cartoonist Name Role Phone Shadi Sevilla MD Primary Care Provider Encounter Details Date Type Department Care Team (Late st Contact Info) Description 07/14/2018 Ancillary Orders [facility] [address] [place] [address] Ivan Lopes MD [address] [place] [address] Dr [facility] [place] [address] [email or web address] Social History Tobacco Use Types Packs/Day Years [...] on filedocumented in this encounter Care Teams Motion Pictures Cartoonist Relationship Specialty Start Date End Date Shadi Sevilla MD PCP - General 04/03/17 documented as of this encounter Additional Source Comments The information contained in this document represents components of the legal health record. It is not the complete legal health record.[facility]
--- OUTSIDE RECORDS SUMMARY | 2025-02-15 09:08 | XMS_ITS | Encounter Summary ---
Author Organization [facility] Address [address] [facility] [address] [facility] [address] [place] [address] Phone Care Team Providers Care Card Mounter Name Role Phone Shadi Sevilla MD Primary Care Provider [phone] Encounter Details Date Type Department Care Team (Late Contact Info) Description 10/13/2018 Ancillary Orders Non-Invasive Cardiology [address] [place] [address] [place] [address] Ivan Lopes MD [address] [place] [address] [email or web address] Heart block Social History Tobacco Use Types Packs/Day Years [...] on file documented as of this encounter Results * DEVICE CHECK: PPM REMOTE INTERROGATION WITH ETHYLBENZENE CRACKING SUPERVISOR REVIEW (10/13/2018 12:38 PM EDT) Narrative Ivan Lopes MD - 10/14/2018 1:25 PM EDT Reason for appointment: Remote pacemaker interrogation HPI: Routine 3 month remote pacemaker interrogation. No device related complaints. Indication for device: Heart block. Examination: Device type: Pacemaker Rig Supervisor: [employer]. Ze[employer] Mode: DDD LRL/UPL: 60/120 bpm Mode switches: 0 High V rates: 0 Thresholds, impedances, and sensing stable. Atrial pacin% Ventricular pacin.2% Battery: 11 yrs Additional comments: Device functioning appropriately. Normal device function. Patient to follow-up for continued monitoring every 3 months. Report prepared by Himanshu Mireles RN us Ivan Lopes MD CV CARDIAC SERVICES ORDER JESSI Final Result documented in this encounter Visit Diagnoses Diagnosis Heart block Unspecified conduction disorder Heart block Unspecified conduction disorder documented in this encounter Care Teams Card Mounter Relationship Specialty Start Date End Date Shadi Sevilla MD PCP - General 04/03/17 documented as of this encounter Additional Source Comments The information contained in this document represents components of the legal health record. It is not the complete legal health record.[facility]
--- OUTSIDE RECORDS SUMMARY | 2025-02-15 09:08 | XMS_ITS | Encounter Summary ---
Author Organization [facility] Address [address] [facility] [address] [place] [address] Phone Care Team Providers Care Tailer Off Name Role Phone Shadi Sevilla MD Primary Care Provider [phone] Encounter Details Date Type Department Care Team (Late st Contact Info) Description 04/05/2017 Ancillary Orders [facility] [address] [place] [address] Ivan Lopes MD [address] [place] [address] [email or web address] Social History Tobacco Use Types Packs/Day Years Used Date Smoking Tobacco: Never Assessed Sex and Gender Information Value Date Recorded Sex Assigned at Not on file Legal Sex Male 10:12 PM EDT Gender Identity Not on file Sexual Orientation Not on file documented as of this encounter Plan of Treatment Not on file documented as of this encounter Visit Diagnoses Not on filedocumented in this encounter Care Teams Tailer Off Relationship Specialty Start Date End Date Shadi Sevilla MD PCP - General 04/03/17 documented as of this encounter Additional Source Comments The information contained in this document represents components of the legal health record. It is not the complete legal health record.[facility]
--- OUTSIDE RECORDS SUMMARY | 2025-02-15 09:08 | XMS_ITS | Clinical Summary ---
Author Organization [facility] Address [address] [facility] [address] [place] [address] Phone Care Team Providers Care Marine Cargo Specialist Name Role Phone Shadi Sevilla MD Primary Care Provider [phone] Allergies No known active allergies Medications amoxicillin (AMOXIL) 500 MG capsule 4 capsules one time Active aspirin 81 MG EC tablet 1 tablet Active warfarin (COUMADIN) 5 MG tablet 1 tablet Active hydroCHLOROthia zide (HYDRODIURIL) 12.5 MG tablet Take 12.5 mg by mouth daily. Active lisinopril (PRINIVIL,ZESTR IL) 40 MG tablet Take 40 mg by mouth daily. Active atorvastatin (LIPITOR) 40 MG tabletIndicatio ns:High cholesterol,Med ication refill Take 1 tablet (40 mg total) by mouth daily. 30 tablet 3 06/04/2018 Active Active Problems Problem Noted Date Diagnosed Date Benign essential hypertension 03/17/2018 Assessment & Plan (03/17/2018 8:54 AM EDT): Elevated today despite recent increase in medications. He tells me it usually much lower so I have told him since he has his blood pressure checked he tells me at least 4 times a week to write the numbers down and call me if he is consistently at 140 or higher. Presence of permanent cardiac pacemaker 09/12/19 18 Assessment & Plan (03/17/2018 8:55 AM EDT): Remote downloads show no particular issue. S/P AVR (aortic valve replacement) 09/10/2017 Overview (09/10/2017): 2013 ST J AVR/CABG X 4 08/2016 ECHO EF 50-55; 2.8 M/S AVR Assessment & Plan (03/17/2018 8:55 AM EDT): It has been about a year and a half since his last echocardiogram so I have asked him to have that repeated. We had ordered this several months ago but it was never done. Assessment & Plan (09/11/2017 9:48 AM EDT): Remains asymptomatic. Echocardiogram 1 year ago was okay. Hypercholesteremia 09/10/2017 Assessment & Plan (03/17/2018 8:54 AM EDT): He is now been on atorvastatin at 40 mg for several months. I have asked him to have a lipid profile drawn soon. Assessment & Plan (09/11/2017 9:49 AM EDT): Because of his LDL of 111 I've increase his simvastatin to 40 mg a day. I've given him a lab slip to have his numbers repeated in about 3 months. Coronary artery disease 09/10/2017 Overview (09/10/2017): 2012 [facility] AVR (ST J) WITH CABG X 4 Assessment & Plan (03/17/2018 8:53 AM EDT): No angina and remains active. I have given him consent to begin his usual exercise program. Assessment & Plan (09/11/2017 9:48 AM EDT): Asymptomatic. Social History Tobacco Use Types Packs/Day Years Used Date Smoking Tobacco: Former Cigarettes Q uit: 01/12/2012 Smokeless Tobacco: Never Education Answer Date Recorded Are you interested in more education? Not on benita e 10/11/2022 Are you concerned about learning? Not on file 10/11/2022 No 10/11/2022 No 10/11/2022 Digital Access Answer Date Recorded No 11/11/2022 No 11/11/2022 Reliable internet access at home? Not on file 11/11/2022 Device with a working camera? Not on file Sex and Gender Information Value Date Recorded Sex Assigned at Not on file Legal Sex Male 10:12 PM EDT Gender Identity Not on file Sexual Orientation Not on file Last Filed Vital Signs Vital Sign Reading Time Taken Comments Blood Pressure 154/84 05/01/2018 9:13 AM EST Pulse 65 03/17/2018 8:15 AM EDT Temperature - - Respiratory Rate - - Oxygen Saturation 95% 03/17/2018 8:15 AM EDT Inhaled Oxygen Concentration - - Weight 120.2 kg (265 lb) 03/17/2018 8:15 AM EDT Height 179.3 cm (5' 10.6 ) 03/17/2018 8:15 AM ED T Body Mass Index 37.38 03/17/2018 8:15 AM EDT Plan of Treatment Health Maintenance Due Date Last Done Comments Adult Td,Tdap Booster 1940 BLOOD PRESSURE 1941 DEPRESSION SCREENING 1953 PNEUMOCOCCAL VACCINES (50+ years) (1 of 1 - PCV) 1991 ZOSTER VACCINES (1 of 2) 1991 RSV VACCINE (1 - 1-dose 75+ series) 02/18/2016 CREATININE LEVEL 03/19/2019 03/19/2018, 12/09/2017 POTASSIUM LEVEL 03/19/2019 03/19/2018, 12/09/2017 INFLUENZA VACCINE (#1) 2025 COVID-19 VACCINE (3 - 2024-2 6 season) 2025 04/03/2021, 03/05/2021 HEPATITIS A VACCINES Aged Out No long er eligible based on patient's age to complete this topic HIB VACCINES Aged Out No longer eligi ble based on patient's age to complete this topic MENINGOCOCCAL VACCINES (ACWY) Aged Out No longer eligible based on patient's age to complete this topic MENINGOCOCCAL VACCINES (B) Aged Out N o longer eligible based on patient's age to complete this topic Medical Devices Not on file Procedures Procedure Name Priority Date/Time Associated Diagnosis Comments BASIC METABOLIC PANEL Routine 03/19/2018 7:55 AM EDT Hypercholesteremia from Last 3 Months or Most Recently Relevant to Health Maintenance Results * (ABNORMAL) Basic metabolic panel (03/19/2018 7:55 AM EDT) SODIUM 140 133 - 146 mmol/L [facility] CHLORIDE 100 96 - 108 mmol/L [facility] POTASSIUM 4.1 3.3 - 5.1 mmol/L [facility] CO2 28 21 - 35 mmol/L [facility] BUN 20(H) 6 - 19 mg/dL [facility] CREATININE 1.00 0.5 - 1.5 mg/dL [facility] GLUCOSE 97 70 - 99 mg/dL [facility] CALCIUM 9.3 8.4 - 10.3 mg/dL [facility] EGFR 72 >59 mL/min/1.7 3m2 [facility] Comment:If patient is black, multiply result by 1.159. Estimated glomerular filtration rate calculated using the CKD-EPI equation. ANION GAP 16 10 - 20 mmol/L [facility] Blood 03/19/2018 7:55 AM EDT 03/19/2018 7:59 AM EDT Angel Bennett MD LAB BLOOD ORDERABLES Final Resu lt [address] [address] from Last 3 Months or Most Recently Relevant to Health Maintenance Insurance MEDICARE PART A & B [employer] MEDEX SUPPLEMENT MEDICARE PART A & B [employer] SUPPLEMENT MEDICARE PART A & B [employer] SUPPLEMENT MEDICARE PART A & B [facility] MEDEX SUPPLEMENT MEDICARE PART A & B [employer] SUPPLEMENT MEDICARE PART A & B [employer] SUPPLEMENT MEDICARE PART A & B Member Subscriber Plan / Payer ( fective 2006-Present) Name:Tad Villar Member ID:[id number] Relation to Subscriber:Self Name:Tad Villar Subscriber ID:[id number] Payer ID:[id number] Group ID:Not on file Type:Medicare Address: [employer] [address] [place] [phone] [employer] MEDEX SUPPLEMENT MEDICARE PART A & B [employer] MEDEX SUPPLEMENT MEDICARE PART A & B [employer] MEDEX SUPPLEMENT Member Subscriber Plan / Payer (Ef fective 2006-Present) Name:Tad Villar Relation to Subscriber:Self Name:TAD VILLAR Payer ID:[id number] (NAIC) Type:Indemnity Address: [address] [place] [id number] Care Teams Marine Cargo Specialist Relationship Specialty Start Date End Date Shadi Sevilla MD PCP - General 04/03/17 Additional Source Comments The information contained in this document represents components of the legal health record. It is not the complete legal health record.[facility]
--- OUTSIDE RECORDS SUMMARY | 2025-02-15 09:08 | XMS_ITS | Encounter Summary ---
Author Organization [facility] Address [address] [place] [address] Phone Care Team Providers Care Wet Suit Gluer Name Role Phone Shadi Sevilla MD Primary Care Provider [phone] Encounter Details Date Type Department Care Team (Latest Contact Info) Description 04/05/2017 Ancillary Orders [facility] [address] [facility] 3rd Floor, [address] [place] [address] Ivan Lopes MD [address] [place] [address] [email or web address] Diagnosis unknown Social History Tobacco Use Types Packs/Day Years Used Date Smoking Tobacco: Never Assessed Sex and Gender Information Value Date Recorded Sex Assigned at Not on file Legal Sex Male 10:12 PM EDT Gender Identity Not on file Sexual Orientation Not on file documented as of this encounter Plan of Treatment Not on file documented as of this encounter Visit Diagnoses Diagnosis Diagnosis unknown documented in this encounter Care Teams Wet Suit Gluer Relationship Specialty Start Date End Date Shadi Sevilla MD PCP - General 04/03/17 documented as of this encounter Additional Source Comments The information contained in this document represents components of the legal health record. It is not the complete legal health record.[facility]
--- OUTSIDE RECORDS SUMMARY | 2025-02-15 09:08 | XMS_ITS | Encounter Summary ---
Author Organization [facility] Address [address] [place] [address] Phone Care Team Providers Care Embedded Software Programmer Name Role Phone Shadi Sevilla MD Primary Care Provider [phone] Encounter Details Date Type Department Care Team (Latest Contact Info) Description 07/01/2017 Ancillary Orders [facility] [address] [facility] 3rd Floor, [address] [place] [address] Ivan Lopes MD [address] [place] [address] [email or web address] Complete heart block Social History Tobacco Use Types Packs/Day [...] this encounter Results * DEVICE CHECK: PPM IN-HOME INTERROGATION (07/01/2017 11:23 AM EST) Narrative Ivan Lopes MD - 07/02/2017 11:26 AM EST Reason for appointment: Remote pacemaker interrogation HPI: Routine 3 month remote pacemaker interrogation. No device related complaints. Indication for device CHB. Examination: Device type: pacemaker Control Room Helper: [employer] Ze[employer] Thresholds, impedances, and sensing stable. Mode switches: 0 High V rates: 0 Alerts: 0 DDD 60/120 Atrial pacing 15 % of the time. Ventricular pacing 89 % of the time. Battery: Longevity is stable 10.8 yrs. Normal device function. Patient to follow-up for continued monitoring. us Ivan Lopes MD CV CARDIAC SERVICES ORDER JESSI Final Result documented in this encounter Visit Diagnoses Diagnosis Diagnosis unknown Complete heart block Atrioventricular block, complete Complete heart block Atrioventricular block, complete documented in this encounter Care Teams Embedded Software Programmer Relationship Specialty Start Date End Date Shadi Sevilla MD PCP - General 04/03/17 documented as of this encounter Additional Source Comments The information contained in this document represents components of the legal health record. It is not the complete legal health record.[facility]
--- OUTSIDE RECORDS SUMMARY | 2025-02-15 09:08 | XMS_ITS | Encounter Summary ---
Author Organization [facility] Address [address] [place] [address] Phone Care Team Providers Care Organ Pipe Voicer Name Role Phone Shadi Sevilla MD Primary Care Provider [phone] Encounter Details Date Type Department Care Team (Late st Contact Info) Description 10/13/2018 Ancillary Orders [facility] [address] [place] [address] Ivan Lopes MD [address] [facility] [place] [address] [email or web address] Social History Tobacco Use Types Packs/Day Years [...] on filedocumented in this encounter Care Teams Organ Pipe Voicer Relationship Specialty Start Date End Date Shadi Sevilla MD PCP - General 04/03/17 documented as of this encounter Additional Source Comments The information contained in this document represents components of the legal health record. It is not the complete legal health record.[facility]
--- OUTSIDE RECORDS SUMMARY | 2025-02-15 09:08 | XMS_ITS | Encounter Summary ---
Author Organization [facility] Address [address] [facility] [address] [place] [address] Phone Care Team Providers Care Tester Compressed Gases Name Role Phone Shadi Sevilla MD Primary Care Provider [phone] Encounter Details Date Type Department Care Team (Late Contact Info) Description 07/14/2018 Ancillary Orders Non-Invasive Cardiology [address] [place] [address] [place] [address] Ivan Lopes MD [address] [place] [address] [email or web address] Heart block Social History Tobacco Use Types [...] * DEVICE CHECK: PPM REMOTE INTERROGATION WITH FORMING AND ASSEMBLING SUPERVISOR REVIEW (07/14/2018 4:15 PM EST) Narrative Ivan Lopes MD - 07/16/2018 2:09 PM EST Reason for appointment: Remote pacemaker interrogation HPI: Routine 3 month remote pacemaker interrogation. No device related complaints. Indication for device: Heart block. Examination: Device type: Pacemaker Pig Breeder: St. Ze[employer] Mode: DDD LRL/UPL: 60/120 bpm Mode switches: 0 High V rates: 1 2sec AT Thresholds, impedances, and sensing stable. Atrial pacin.7% Ventricular pacin% Battery: 10.6 yrs Additional comments: Device functioning appropriately. Normal device function. Patient to follow-up for continued monitoring every 3 months. Report prepared by Himanshu Mireles RN us Ivan Lopes MD CV CARDIAC SERVICES ORDER JESSI Final Result documented in this encounter Visit Diagnoses Diagnosis Heart block Unspecified conduction disorder Heart block Unspecified conduction disorder documented in this encounter Care Teams Tester Compressed Gases Relationship Specialty Start Date End Date Shadi Sevilla MD PCP - General 04/03/17 documented as of this encounter Additional Source Comments The information contained in this document represents components of the legal health record. It is not the complete legal health record.[facility]
--- OUTSIDE RECORDS SUMMARY | 2025-02-15 09:08 | XMS_ITS | Encounter Summary ---
Author Organization [facility] Address [address] [facility] [address] [place] [address] Phone Care Team Providers Care Freezing Room Worker Name Role Phone Shadi Sevilla MD Primary Care Provider [phone] Encounter Details Date Type Department Care Team ([facility] Contact Info) Description 04/06/2018 Ancillary Orders Non-Invasive Cardiology [address] [place] [address] [place] [address] Ivan Lopes MD [address] [place] [address] [email or web address] Heart block Social History Tobacco Use [...] * DEVICE CHECK: PPM REMOTE INTERROGATION WITH DRUGLESS PHYSICIAN REVIEW (04/06/2018 10:03 AM EDT) Narrative Ivan Lopes MD - 04/08/2018 12:29 PM EDT Reason for appointment: Remote pacemaker interrogation HPI: Routine 3 month remote pacemaker interrogation. No device related complaints. Indication for device: Heart block. Examination: Device type: Pacemaker Nurse Charge Rn: [employer]. Ze[employer] Mode: DDD LRL/UPL: 60/120 bpm Mode switches: 0 High V rates: 0 Thresholds, impedances, and sensing stable. Atrial pacin% Ventricular pacin% Battery: 10.7 yrs Additional comments: Device functioning appropriately. Normal device function. Patient to follow-up for continued monitoring every 3 months. Report prepared by Himanshu Mireles RN us Ivan Lopes MD CV CARDIAC SERVICES ORDER JESSI Final Result documented in this encounter Visit Diagnoses Diagnosis Heart block Unspecified conduction disorder Heart block Unspecified conduction disorder documented in this encounter Care Teams Freezing Room Worker Relationship Specialty Start Date End Date Shadi Sevilla MD PCP - General 04/03/17 documented as of this encounter Additional Source Comments The information contained in this document represents components of the legal health record. It is not the complete legal health record.[facility]
--- OUTSIDE RECORDS SUMMARY | 2025-02-15 09:08 | XMS_ITS | Encounter Summary ---
Author Organization [facility] Address [address] [place] [address] Phone Care Team Providers Care Revenue Field Auditor Name Role Phone Shadi Sevilla MD Primary Care Provider [phone] Encounter Details Date Type Department Care Team (Latest Contact Info) Description 05/18/2018 Ancillary Orders [facility] [address] [facility] [address] [place] [address] Angel Bennett MD [address] [place] [address] [email or web address] Coronary artery disease involving [place] coronary artery of [place] heart without angina pectoris Social History Tobacco Use Types Packs/Day Years [...] as of this encounter Visit Diagnoses Diagnosis Coronary artery disease involving [place] coronary artery of [place] heart without angina pectoris documented in this encounter Care Teams Revenue Field Auditor Relationship Specialty Start Date End Date Shadi Sevilla MD PCP - General 04/03/17 documented as of this encounter Additional Source Comments The information contained in this document represents components of the legal health record. It is not the complete legal health record.[facility]
--- OUTSIDE RECORDS SUMMARY | 2025-02-15 09:08 | XMS_ITS | Encounter Summary ---
Author Organization [facility] Address [address] [place] [address] Phone Care Team Providers Care Railroad Hand Name Role Phone Shadi Sevilla MD Primary Care Provider [phone] Encounter Details Date Type Department Care Team (Late st Contact Info) Description 04/06/2018 Ancillary Orders [facility] [address] [place] [address] Ivan Lopes MD [address] [place] [address] [place] [address] [email or web address] Social History Tobacco Use Types Packs/Day Years [...] on filedocumented in this encounter Care Teams Railroad Hand Relationship Specialty Start Date End Date Shadi Sevilla MD PCP - General 04/03/17 documented as of this encounter Additional Source Comments The information contained in this document represents components of the legal health record. It is not the complete legal health record.[facility]
[2025-02-15 14:38] LABS: Hematocrit 23.7 % (42.0-52.0); Hemoglobin 7.8 g/dl (14.0-18.0); Mean Corpuscular HGB Conc 32.9 g/dl (31.0-36.0); Mean Corpuscular Hemoglobin 32.9 pg (27.0-33.0); Mean Corpuscular Volume 100.0 fL (80.0-98.0); NRBC Abs Auto 1.750 X10*3/uL (0.0-0.012); Red Blood Count 2.37 X10*6/uL (4.60-5.80)
[2025-02-15 14:40] LABS: NRBC Pct Auto 76.1 /100WBC (0.0-0.2); Platelet Count 60 X10*3/uL (160-400); White Blood Count 2.3 X10*3/uL (4.8-10.8)
[2025-02-15 15:11] LABS: Anion Gap 13 (12-20); Blood Urea Nitrogen 30 mg/dL (9-16); Calcium 9.6 mg/dL (8.4-10.2); Carbon Dioxide 28 mmol/L (22-29); Chloride 106 mmol/L (96-108); Estimated Glomerular Filt Rate 50; Potassium 4.1 mmol/L (3.3-5.1); Sodium 143 mmol/L (135-145)
== END ==
LOC: HO.CARD 08:30
PROVIDERS: PCP Internal Medicine; Visit Provider Internal Medicine Cardiovascular Disease
DX: I11.9 Hypertensive heart disease without heart failure (principal); I50.32 Chronic diastolic (congestive) heart failure; D64.9 Anemia, unspecified
CPT/HCPCS: 36415; 80048; 85027; 93306; 99212

== ENCOUNTER 2025-02-15 12:44 | Outpatient (AMB) | payer MEDICARE, SELFPAY ==
[2025-02-15 13:02] VITALS: BP 90/62; PULSE 72; BMI 38.7
--- NOTE | 2025-02-15 13:02 | A.OFFVIS_ITS ---
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: No Accompanied by: Self / Same As Patient Allergies Penicillins (PENICILLINS) Allergy (Severe, Verified 02/07/25 13:05) HIVES Medication List - Last Reconciled 02/15/25 by James Burns NP acetaminophen ER 650 mg PO Q6H PRN atorvastatin 40 mg PO DAILY cane Folding cane please.Use daily due to unsteady on feet and recurrent falls cyclobenzaprine 10 mg PO Q8H PRN furosemide 40 mg PO DAILY@1700 furosemide (Lasix) 80 mg PO DAILY lisinopril 40 mg PO DAILY metoprolol succinate ER 50 mg PO DAILY multivit,calc,jvo-QP-I1-lycop 240 mcg-30 mcg- 300 mcg (One-A-Day Men's Complete) 1 tab PO DAILY warfarin 5 mg See Protocol PO MOTH@1800 warfarin 2.5 mg See Protocol PO SUTUWEFRSA@1800 warfarin 5 mg See Protocol PO DAILY HPI Comments Details: This is an 84-year-old male patient coming in for a hospital discharge follow- up. Patient with a history of hypertension, coronary artery disease, status post AVR on Coumadin, chronic heart failure, history of cardiomyopathy status post Bi V ICD placement in 2019. Patient was seen about a week ago by Dr. Jade where patient reported shortness of breath with exertion and feeling fatigued. Patient had lab works done showing anemia with a H&H at 6.5 and 19.8 and therefore was sent to the emergency room for further evaluation. Patient then received a unit of RBCs and was recommended to have GI workup which patient refused. Patient was also seen by Hematology/Oncology and was recommended bone marrow biopsy however patient refused this as well and was only agreeable for supportive care with blood transfusions. Today, patient reports ongoing fatigue otherwise no exertional chest pain, shortness of breath, palpitations, dizziness, orthopnea, PND, presyncope or syncope. Patient continues to deny any falls or any signs of bleeding. Patient does note that he is continuing to have the swelling in his legs and is still taking his Lasix dose of 80 in the morning and 40 in the afternoon even though it was increased to [address] Jade at his last visit. Patient is declining any aggressive workup moving forward and is only okay with supportive care. Patient is asking about palliative care at today's visit. [facility] Medical History (Updated 02/15/25 @ 13:49 by James Burns NP) ICD (implantable cardioverter-defibrillator) in place Chronic diastolic CHF (congestive heart failure) Ulcerative colitis DVT (deep venous thrombosis) CAD (coronary artery disease) Leg swelling Chronic anemia Peripheral edema Arthritis Annual physical exam Bilateral knee pain History of bad fall Multiple joint pain Fall on ice Morbid obesity with BMI of 40.0-44.9, adult Cardiomyopathy History of left bundle branch block Hypertension Fatigue Current use of anticoagulant therapy Surgical History History of cardiac cath History of aortic valve replacement Family History Father Kidney problem Mother Cancer Social History Household Members: None Housing: House Do you presently have visiting nurse or other home services: No Alcohol intake: current Alcohol intake frequency: a few times a month Alcohol type: beer Patient Tobacco Use Status: Former Tobacco user Years Smoked: 23 +/- Advance Directives Date on File: 02/07/25 service: No Current occupational status: retired Cognitive needs: Yes (cane) Hearing needs: No Vision needs: Yes (reading glasses) Review of Systems Const Denies chills, Denies fatigue, Denies fever(s), Denies frequent falls, Denies weakness, Denies weight gain and Denies weight loss ENT Denies dizziness Card Denies chest pain, Denies leg edema, Denies lightheadedness, Denies palpitations, Denies dyspnea and Denies dyspnea on exertion Resp Denies cough, Denies dyspnea and Denies dyspnea on exertion GI Denies hematochezia Musc Denies abnormal gait, Denies muscle weakness, Denies numbness, Denies radiating pain into limb and Denies tingling Neuro Denies abnormal gait, Denies dizziness, Denies frequent falls, Denies numbness, Denies tingling and Denies weakness Endo Denies fatigue and Denies palpitations Physical Exam Vital Signs: Last Vital Signs Pulse 72 02/15/25 13:02 BP 90/54 L 02/15/25 13:02 BMI result Body Mass Index 38.7 Const General: cooperative, healthy appearing, comfortable and no acute distress Orientation/consciousness: patient oriented x3 HEENT Head: Yes normal to inspection Neck Neck: Yes normal visual inspection, Yes trachea midline and Yes supple Chest Chest palpation & inspection: normal inspection of the chest Resp Effort & Inspection: normal respiratory effort Auscultation: clear to auscultation bilaterally, no crackles, no rales, no rhonchi and no wheezes Cardio Jugular venous distension: no JVD Palpation: normal PMI Rate: regular rate Rhythm: regular rhythm Heart sounds: S1 normal heart sound present, S2 normal heart sound present, no click, no gallops, no murmurs, no rubs and Other heart sounds present (Mechanical 2nd heart sound) Peripheral pulses: Peripheral pulses 2+ throughout GI Inspection: Yes normal to inspection Palpation (GI): Soft to palpation Auscultation: normal bowel sounds Skin General skin exam: no rashes or lesions noted Neuro General: patient oriented x3 Extrem Other: 1+ pitting edema to bilateral lower legs General: Yes normal to inspection and No calf tenderness Psych Appearance: grossly normal Mental Status: mental status grossly normal Speech and movement: Normal speech and movement present Assessment & Plan Assessment & Plan (1) Pancytopenia: Code(s): D61.818 - Other pancytopenia Category: Medical Plan: Acute on chronic anemia. Patient refused GI workup. Hematology/oncology was consulted and there is questions about cancer for which patient has refused bone marrow biopsy. At this time patient would like supportive care with just blood transfusions. (2) Current use of anticoagulant therapy: Code(s): Z79.01 - FDC (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 Plan: Patient on warfarin therapy s/p AVR. Given his ongoing anemia, discussed about possibly having to stop his warfarin. Patient does understand that he would be at a high risk for thrombo embolic event if we had to stop his anticoagulation. For now, continue warfarin therapy. We will follow up after repeat lab work. (3) S/P AVR: Code(s): Z95.2 - Presence of prosthetic heart valve Category: Surgical Plan: As above. (4) Chronic diastolic CHF (congestive heart failure): Code(s): I50.32 - Chronic diastolic (congestive) heart failure Category: Medical Plan: Patient with chronic 1+ pitting edema to bilateral lower legs, right greater than left. Patient is on Lasix and was previously increased to 80 mg b.i.d. however patient is continuing to take 80 mg in the morning and 40 mg in the afternoon. Continue this for now. Discussed in detail about lifestyle modifications around heart failure- low-salt diet, compression stockings, daily weight monitoring, and fluid restriction between 1.5 L to 2 L daily. (5) Aortic stenosis: Comment: Status post AVR with mechanical St Zeus valve Code(s): I35.0 - Nonrheumatic aortic (valve) stenosis Category: Medical Plan: As above. (6) Essential hypertension: Code(s): I10 - Essential (primary) hypertension Category: Medical Plan: Blood pressure today is on the lower side. We will stop lisinopril. Advised patient to monitor blood pressures at home and maintain a log of it. (7) ICD (implantable cardioverter-defibrillator) in place: Code(s): Z95.810 - Presence of automatic (implantable) cardiac defibrillator Category: Medical Plan: Being followed remotely. (8) Hospital discharge follow-up: Code(s): Z09 - Encounter for follow-up examination after completed treatment for conditions other than malignant neoplasm Plan: As above. Patient enquiring about palliative care at today's visit. Patient adamantly has been refusing any aggressive workup procedures to further evaluate his anemia. Patient states that he would like to be comfortable at home and like to spend the remainder of his life at home. We will contact his primary care provider to address this further. Depending on patient's labs, we will plan for a follow-up. Patient will call the office with any concerns or change in symptoms. Reviewed case with Dr. Jade. This note was generated using voice recognition software. While every effort has been made to ensure accuracy and proper truck driver rubbish collector, there may be occasional errors that could affect the content or meaning of the described symptoms. Orders: Orders Complete Blood Count no Diff Today D64.9 - Anemia, unspecified Basic Metabolic Panel Today I10 - Essential (primary) hypertension Medications: Discontinued lisinopril Discontinued Reason: Doctor's Order 40 mg PO DAILY 90 tabs 1RF Coding Level of Care Code Est Pt Level 4 (27165) Complex EM visit Add On G2211 Diagnoses Pancytopenia D61.818 Current use of anticoagulant therapy Z79.01 S/P AVR Z95.2 Chronic diastolic CHF (congestive heart failure) I50.32 Aortic stenosis I35.0 Essential hypertension I10 ICD (implantable cardioverter-defibrillator) in place Z95.810 Hospital discharge follow-up Z09 Time Spent (min) 35 Comment Time spent in reviewing the chart, test results, assessment, counseling and documentation.
== END 2025-02-15 13:37 | disposition home or self-care (01) ==
LOC: HO.HCS 12:44
PROVIDERS: PCP Internal Medicine
DX: I50.32 Chronic diastolic (congestive) heart failure (principal); Z95.2 Presence of prosthetic heart valve
CPT/HCPCS: 93306; 99214; G2211

== ENCOUNTER 2025-02-17 08:02 | Outpatient (REF) | payer MEDICARE, SELFPAY ==
[2025-02-17 08:34] LABS: Hematocrit 22.6 % (42.0-52.0); Hemoglobin 7.6 g/dl (14.0-18.0); Mean Corpuscular HGB Conc 33.6 g/dl (31.0-36.0); Mean Corpuscular Hemoglobin 33.2 pg (27.0-33.0); Mean Corpuscular Volume 98.7 fL (80.0-98.0); NRBC Abs Auto 1.120 X10*3/uL (0.0-0.012); NRBC Pct Auto 59.3 /100WBC (0.0-0.2); Platelet Count 53 X10*3/uL (160-400); Red Blood Count 2.29 X10*6/uL (4.60-5.80); White Blood Count 1.9 X10*3/uL (4.8-10.8)
== END 2025-02-17 08:03 | disposition home or self-care (01) ==
LOC: HO.LAB 08:02
PROVIDERS: Visit Provider Internal Medicine
DX: D61.818 Other pancytopenia (principal)
CPT/HCPCS: 36415; 85027; 85610; 99211; 99212

== ENCOUNTER 2025-02-17 08:31 | Outpatient (AMB) | payer MEDICARE, SELFPAY ==
[2025-02-17 08:42] LABS: Prothrombin Time Whole Bld POC 15.2 sec (11.1-13.5); ~PT, ~INR - Anti Coag Clinic 1.3 (0.9-1.1)
--- OUTSIDE RECORDS SUMMARY | 2025-02-17 09:00 | XMS_ITS | Encounter Summary ---
Author Organization [facility] Address [address] [place] [address] Phone Care Team Providers Care Salvage Determiner Name Role Phone Shadi Sevilla MD Primary Care Provider [phone] Encounter Details Date Type Department Care Team (Latest Contact Info) Description 05/18/2018 Ancillary Orders [facility] [address] [place] [address] Angel Bennett MD [address] [place] [address] [email or web address] Coronary artery disease involving [place] coronary artery of [place] heart without angina pectoris Social History Tobacco [...] Visit Diagnoses Diagnosis Coronary artery disease involving [place] coronary artery of [place] heart without angina pectoris documented in this encounter Care Teams Salvage Determiner Relationship Specialty Start Date End Date Shadi Sevilla MD PCP - General 04/03/17 documented as of this encounter Additional Source Comments The information contained in this document represents components of the legal health record. It is not the complete legal health record.[facility]
--- OUTSIDE RECORDS SUMMARY | 2025-02-17 09:00 | XMS_ITS | Encounter Summary ---
Author Organization [facility] Address [address] [place] [address] Phone Care Team Providers Care Medical Equipment Sales Name Role Phone Shadi Sevilla MD Primary Care Provider [phone] Encounter Details Date Type Department Care Team (Latest Contact Info) Description 04/05/2017 Ancillary Orders [facility] [address] [facility] 3rd Floor, [address] [place] [address] Ivan Lopes MD [address] [place] [address] [email or web address] Diagnosis unknown Social History Tobacco Use Types [...] unknown documented in this encounter Care Teams Medical Equipment Sales Relationship Specialty Start Date End Date Shadi Sevilla MD PCP - General 04/03/17 documented as of this encounter Additional Source Comments The information contained in this document represents components of the legal health record. It is not the complete legal health record.[facility]
--- OUTSIDE RECORDS SUMMARY | 2025-02-17 09:00 | XMS_ITS | Clinical Summary ---
Author Organization [facility] Address [address] [facility] [address] [place] [address] Phone Care Team Providers Care Bd Special Education Teacher Name Role Phone Shadi Sevilla MD Primary Care Provider [phone] Allergies No known active allergies Medications amoxicillin [...] Coronary artery disease 09/10/2017 Overview (09/10/2017): [address] [facility] AVR (ST J) WITH CABG X [...] EDT) SODIUM 140 133 - 146 mmol/L [facility] CHLORIDE 100 96 - 108 mmol/L [facility] POTASSIUM 4.1 3.3 - 5.1 mmol/L [facility] CO2 28 21 - 35 mmol/L [facility] BUN 20(H) 6 - 19 mg/dL [facility] CREATININE 1.00 0.5 - 1.5 mg/dL [facility] GLUCOSE 97 70 - 99 mg/dL [facility] CALCIUM 9.3 8.4 - 10.3 mg/dL [facility] EGFR 72 >59 mL/min/1.7 3m2 [facility] Comment:If patient is black, multiply result by 1.159. Estimated glomerular filtration rate calculated using the CKD-EPI equation. ANION GAP 16 10 - 20 mmol/L [facility] Blood 03/19/2018 7:55 AM EDT 03/19/2018 7:59 AM EDT Angel Bennett MD LAB BLOOD ORDERABLES Final Resu lt [address] [address] from Last 3 Months or Most Recently Relevant to Health Maintenance Insurance MEDICARE PART A & B [employer] MED[employer] SUPPLEMENT MEDICARE PART A & B [employer] MEDEX SUPPLEMENT MEDICARE PART A & B [employer] MEDEX SUPPLEMENT MEDICARE PART A & B [facility] MEDEX SUPPLEMENT MEDICARE PART A & B [employer] MEDEX SUPPLEMENT MEDICARE PART A & B [employer] MEDEX SUPPLEMENT MEDICARE PART A & B Member Subscriber Plan / Payer ( fective 2006-Present) Name:Tad Villar Member ID:[id number] Relation to Subscriber:Self Name:Tad Villar Subscriber ID:[id number] Payer ID:[id number] Group ID:Not on file Type:Medicare Address: [employer] [address] [place] [id number] [employer] MEDEX SUPPLEMENT MEDICARE PART A & B [employer] MEDEX SUPPLEMENT MEDICARE PART A & B [employer] MEDEX SUPPLEMENT Member Subscriber Plan / Payer (Ef fective 2006-Present) Name:Tad Villar Relation to Subscriber:Self Name:TAD VILLAR Payer ID:[id number] (NAIC) Type:Indemnity Address: [address] [place] [id number] Care Teams Bd Special Education Teacher Relationship Specialty Start Date End Date Shadi Sevilla MD PCP - General 04/03/17 Additional Source Comments The information contained in this document represents components of the legal health record. It is not the complete legal health record.[facility]
--- OUTSIDE RECORDS SUMMARY | 2025-02-17 09:00 | XMS_ITS | Encounter Summary ---
Author Organization [facility] Address [address] [facility] [address] [place] [address] Phone Care Team Providers Care Return To Vendor Name Role Phone Shadi Sevilla MD Primary Care Provider Encounter Details Date Type Department Care Team (Late Contact Info) Description 07/14/2018 Ancillary Orders Non-Invasive Cardiology [address] [place] [address] [place] [address] Ivan Lopes MD [address] [place] [address] [email or web address] Heart block Social History Tobacco Use [...] * DEVICE CHECK: PPM REMOTE INTERROGATION WITH SYRUPER REVIEW (07/14/2018 4:15 PM EST) Narrative Ivan Lopes MD - 07/16/2018 2:09 PM EST Reason for appointment: Remote pacemaker interrogation HPI: Routine 3 month remote pacemaker interrogation. No device related complaints. Indication for device: Heart block. Examination: Device type: Pacemaker Dowel Sticker Operator: St. Zeus Mode: DDD LRL/UPL: 60/120 bpm [...] disorder documented in this encounter Care Teams Return To Vendor Relationship Specialty Start Date End Date Shadi Sevilla MD PCP - General 04/03/17 documented as of this encounter Additional Source Comments The information contained in this document represents components of the legal health record. It is not the complete legal health record.[facility]
--- OUTSIDE RECORDS SUMMARY | 2025-02-17 09:00 | XMS_ITS | Encounter Summary ---
Author Organization [facility] Address [address] [facility] [address] [place] [address] Phone Care Team Providers Care Director Of Marketing Google Performance Ads Name Role Phone Shadi Sevilla MD Primary Care Provider [phone] Encounter Details Date Type Department Care Team (Late Contact Info) Description 10/13/2018 Ancillary Orders Non-Invasive Cardiology [address] [place] [address] [place] [address] Ivan Lopes MD [address] [place] [address] [email or web address] Heart block Social History Tobacco Use Types [...] * DEVICE CHECK: PPM REMOTE INTERROGATION WITH UNDERGROUND BOLTING MACHINE OPERATOR REVIEW (10/13/2018 12:38 PM EDT) Narrative Ivan Loeps MD - 10/14/2018 1:25 PM EDT Reason for appointment: Remote pacemaker interrogation HPI: Routine 3 month remote pacemaker interrogation. No device related complaints. Indication for device: Heart block. Examination: Device type: Pacemaker Concrete Finishing Machine Operator: St. Zeus Mode: DDD LRL/UPL: 60/120 [...] disorder documented in this encounter Care Teams Director Of Marketing Google Performance Ads Relationship Specialty Start Date End Date Shadi Sevilla MD PCP - General 04/03/17 documented as of this encounter Additional Source Comments The information contained in this document represents components of the legal health record. It is not the complete legal health record.[facility]
--- OUTSIDE RECORDS SUMMARY | 2025-02-17 09:00 | XMS_ITS | Encounter Summary ---
Author Organization [facility] Address [address] [place] [address] Phone Care Team Providers Care Biomedical Analytical Scientist Name Role Phone Shadi Sevilla MD Primary Care Provider [phone] Encounter Details Date Type Department Care Team (Late st Contact Info) Description 10/13/2018 Ancillary Orders [facility] [address] [place] [address] Ivan Lopes MD [address] [facility] [address] [email or web address] Social History Tobacco Use Types Packs/Day Years [...] on filedocumented in this encounter Care Teams Biomedical Analytical Scientist Relationship Specialty Start Date End Date Shadi Sevilla MD PCP - General 04/03/17 documented as of this encounter Additional Source Comments The information contained in this document represents components of the legal health record. It is not the complete legal health record.[facility]
--- OUTSIDE RECORDS SUMMARY | 2025-02-17 09:00 | XMS_ITS | Encounter Summary ---
Author Organization [facility] Address [address] [facility] [address] [place] [address] Phone Care Team Providers Care Edge Sander Name Role Phone Shadi Sevilla MD Primary Care Provider [phone] Encounter Details Date Type Department Care Team ([facility] Contact Info) Description 04/06/2018 Ancillary Orders Non-Invasive Cardiology [address] [place] [address] [place] [address] Ivan Lopes MD [address] [place] [address] [email or web address] Heart block Social History Tobacco Use [...] * DEVICE CHECK: PPM REMOTE INTERROGATION WITH RN OR LVN REVIEW (04/06/2018 10:03 AM EDT) Narrative Ivan Lopes MD - 04/08/2018 12:29 PM EDT Reason for appointment: Remote pacemaker interrogation HPI: Routine 3 month remote pacemaker interrogation. No device related complaints. Indication for device: Heart block. Examination: Device type: Pacemaker Highway Technician: St. Zeus Mode: DDD LRL/UPL: 60/120 bpm [...] disorder documented in this encounter Care Teams Edge Sander Relationship Specialty Start Date End Date Shadi Sevilla MD PCP - General 04/03/17 documented as of this encounter Additional Source Comments The information contained in this document represents components of the legal health record. It is not the complete legal health record.[facility]
--- OUTSIDE RECORDS SUMMARY | 2025-02-17 09:00 | XMS_ITS | Encounter Summary ---
Author Organization [facility] Address [address] [place] [address] Phone Care Team Providers Care Want Ad Supervisor Name Role Phone Shadi Sevilla MD Primary Care Provider [phone] Encounter Details Date Type Department Care Team (Late st Contact Info) Description 04/06/2018 Ancillary Orders [facility] [address] [place] [address] Ivan Lopes MD [address] [place] [address] [place] [address] [email or web address] Social History Tobacco Use Types Packs/Day Years [...] on filedocumented in this encounter Care Teams Want Ad Supervisor Relationship Specialty Start Date End Date Shadi Sevilla MD PCP - General 04/03/17 documented as of this encounter Additional Source Comments The information contained in this document represents components of the legal health record. It is not the complete legal health record.[facility]
--- OUTSIDE RECORDS SUMMARY | 2025-02-17 09:00 | XMS_ITS | Encounter Summary ---
Author Organization [facility] Address [address] [place] [address] Phone Care Team Providers Care Nursing Tech Name Role Phone Shadi Sevilla MD Primary Care Provider [phone] Encounter Details Date Type Department Care Team (Late st Contact Info) Description 05/18/2018 Ancillary Orders [facility] [address] [place] [address] Angel Bennett MD [address] [address] [email or web address] Social History Tobacco Use Types Packs/Day [...] on filedocumented in this encounter Care Teams Nursing Tech Relationship Specialty Start Date End Date Shadi Sevilla MD PCP - General 04/03/17 documented as of this encounter Additional Source Comments The information contained in this document represents components of the legal health record. It is not the complete legal health record.[facility]
--- OUTSIDE RECORDS SUMMARY | 2025-02-17 09:00 | XMS_ITS | Encounter Summary ---
Author Organization [facility] Address [address] [place] [address] Phone Care Team Providers Care Digital Specialist Name Role Phone Shadi Sevilla MD Primary Care Provider [phone] Encounter Details Date Type Department Care Team (Late st Contact Info) Description 07/14/2018 Ancillary Orders [facility] [address] [place] [address] Ivan Lopes MD [address] [place] [address] [facility] [place] [address] [email or web address] Tobacco Use Types Packs/Day Years [...] on filedocumented in this encounter Care Teams Digital Specialist Relationship Specialty Start Date End Date Shadi Sevilla MD PCP - General 04/03/17 documented as of this encounter Additional Source Comments The information contained in this document represents components of the legal health record. It is not the complete legal health record.[facility]
--- OUTSIDE RECORDS SUMMARY | 2025-02-17 09:00 | XMS_ITS | Encounter Summary ---
Author Organization [facility] Address [address] [place] [address] Phone Care Team Providers Care Well Drill Operator Name Role Phone Shadi Sevilla MD Primary Care Provider [phone] Encounter Details Date Type Department Care Team (Late st Contact Info) Description 04/05/2017 Ancillary Orders [facility] [address] [place] [address] Ivan Lopes MD [address] [place] [address] [email or web address] Social History Tobacco Use Types Packs/Day Years [...] on filedocumented in this encounter Care Teams Well Drill Operator Relationship Specialty Start Date End Date Shadi Sevilla MD PCP - General 04/03/17 documented as of this encounter Additional Source Comments The information contained in this document represents components of the legal health record. It is not the complete legal health record.[facility]
--- OUTSIDE RECORDS SUMMARY | 2025-02-17 09:00 | XMS_ITS | Encounter Summary ---
Author Organization [facility] Address [address] [place] [address] Phone Care Team Providers Care Actimize Architect Name Role Phone Shadi Sevilla MD Primary Care Provider [phone] Encounter Details Date Type Department Care Team (Latest Contact Info) Description 07/01/2017 Ancillary Orders [facility] [address], [address] [place] [address] Ivan Lopes MD [address] [place] [address] [email or web address] Complete heart block Social History [...] for device CHB. Examination: Device type: pacemaker Wind Turbine Mechanic: [employer] Thresholds, impedances, and sensing stable. [...] complete documented in this encounter Care Teams Actimize Architect Relationship Specialty Start Date End Date Shadi Sevilla MD PCP - General 04/03/17 documented as of this encounter Additional Source Comments The information contained in this document represents components of the legal health record. It is not the complete legal health record.[facility]
--- NOTE | 2025-02-17 09:02 | MHC.OFFVISCO ---
Intake Intake Visit Reasons: Anticoagulation Allergies Penicillins (PENICILLINS) Allergy (Severe, Verified 02/17/25 08:37) HIVES Medication List - Last Reconciled 02/17/25 by Janet Deng, GOVIND acetaminophen ER 650 mg PO Q6H PRN atorvastatin 40 mg PO DAILY cane Folding cane please.Use daily due to unsteady on feet and recurrent falls cyclobenzaprine 10 mg PO Q8H PRN furosemide 40 mg PO DAILY@1700 furosemide (Lasix) 80 mg PO DAILY metoprolol succinate ER 50 mg PO DAILY multivit,calc,uwm-XI-H0-lycop 240 mcg-30 mcg- 300 mcg (One-A-Day Men's Complete) 1 tab PO DAILY warfarin 5 mg See Protocol PO MOTH@1800 warfarin 2.5 mg See Protocol PO SUTUWEFRSA@1800 warfarin 5 mg See Protocol PO DAILY Nursing Note INR: 1.3 out of therapeutic range of 2-3 Pt thinks he didn't take warfarin as directed or at all. He was to have been checked by [facility] today but said he came to hospital because he had to have bloodwork. Was told the [facility] can check his bloodwork. [facility] is seeing him today. Medications and supplements reviewed Patient status: weak, discouraged with recent illness. Medications or supplements: no changes Diet: pt states appetite is same as usual, denies N or V Denies any signs and symptoms of bleeding or clotting or unusual bruising Bleeding, bruising, clotting discussed Nutritional guidance given: to avoid greens and have a serving of foods that raise the INR. Food list discussed. Dose: today's dose increased to 7.5mg (5mg), tomorrow's dose increased to 5mg (2.5mg) then usual dose of 2.5mg the next 2 days then [facility] to recheck on 02/21/25 F/U INR Date : 02/21/25?? Patient verbalizing understanding of instructions with read back given. T/C to pcp, Dr Huber. Message left on bhavya mobley for nurse Roma. Also composed note sent to [facility]-Coag Initial Assessment Social Hx Patient Tobacco Use Status: Former Tobacco user alcohol intake: current Alcohol intake frequency: a few times a month Coding Level of Care Code Est Patient Level 2 Diagnoses Current use of anticoagulant therapy Z79.01 Comment critical INR, pt teaching, MD notified Assessment & Plan Assessment & Plan (1) Current use of anticoagulant therapy: Code(s): Z79.01 - prison (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
== END 2025-02-17 09:14 | disposition home or self-care (01) ==
PROVIDERS: PCP Internal Medicine; Visit Provider Internal Medicine Medical Oncology
DX: Z79.01 Long term (current) use of anticoagulants (principal)

== ENCOUNTER 2025-02-21 09:20 | Outpatient (AMB) | payer MEDICARE, SELFPAY ==
--- NOTE | 2025-02-21 09:26 | MHC.PC.OV ---
Vital Signs 02/21/25 09:28 Height 5 ft 8 in Weight 258 lb BMI 39.2 BP 118/68 Respiration 18 Pulse 110 H Pulse Source Pulse Oximeter Temp 97.8 F Temp Source Temporal Artery Scan Pulse Oximetry (%) 99 Oxygen Delivery Method Room Air Intake Visit Reasons: Hospital Discharge Foxing Cutting Machine Operator Required: No Accompanied by: Self / Same As Patient Allergies Penicillins (PENICILLINS) Allergy (Severe, Verified 02/21/25 09:32) HIVES Tobacco use date assessed: 02/21/25 Fall risk assessment: 1 Fall in past year Last assessed Fall Risk: 02/21/25 Dental Screening Dental Screen Date: 12/16/24 [facility] Medical History (Updated 02/21/25 @ 10:02 by Tim Shaw MD) Shortness of breath Palliative care patient ICD (implantable cardioverter-defibrillator) in place Chronic diastolic CHF (congestive heart failure) Ulcerative colitis DVT (deep venous thrombosis) CAD (coronary artery disease) Leg swelling Chronic anemia Peripheral edema Arthritis Annual physical exam Bilateral knee pain History of bad fall Multiple joint pain Fall on ice Morbid obesity with BMI of 40.0-44.9, adult Cardiomyopathy History of left bundle branch block Hypertension Fatigue Current use of anticoagulant therapy Surgical History History of cardiac cath History of aortic valve replacement Family History Father Kidney problem Mother Cancer Social History Household Members: None Housing: House Do you presently have visiting nurse or other home services: No Alcohol intake: current Alcohol intake frequency: a few times a month Alcohol type: beer Patient Tobacco Use Status: Former Tobacco user Years Smoked: 23 +/- Advance Directives Date on File: 02/07/25 service: No Current occupational status: retired Cognitive needs: Yes (cane) Hearing needs: No Vision needs: Yes (reading glasses) Questionnaire PHQ-9 Over the last 2 weeks, how often have you been bothered by any of the following problems? 1. Little interest or pleasure in doing things: not at all 2. Feeling down, depressed, or hopeless: not at all 3. Trouble falling or staying asleep, or sleeping too much: nearly every day (only because on Lasix and is always having to get up to urinate but not related to depression ) 4. Feeling tired or having little energy: nearly every day (only because on Lasix and is always having to get up to urinate but not related to depression) 5. Poor appetite or overeating: not at all 6. Feeling bad about yourself - or that you are a failure or have let yourself or your family down: not at all 7. Trouble concentrating on things, such as reading the newspaper or watching television: not at all 8. Moving or speaking so slowly that other people could have noticed. Or the opposite - being so fidgety or restless that you have been moving around a lot more than usual: not at all 9. Thoughts that you would be better off or of hurting yourself in some way: not at all Total score: 6 Depression Screening Interpretation: Positive Depression Screening Follow-up: Existing condition Depression Screening Done: Yes 39190 - PHQ-9 Billing: Yes Source: Developed by Drs. Rc Duncan, Martha Brooks, Ryan Kramer and colleagues, with an educational casper from [employer]. Thrive Questionnaire Date Thrive assessed: 02/08/25 Currently or been in a relationship where the following occur: No concerns reported (pt is single at this time ) THRIVE Score: 0 AUDIT C Alcohol Use Questionnaire (AUDIT-C) 1. How often do you have a drink containing alcohol?: Never 3. How often do you have six or more drinks on one occasion?: Never Total Score: 0 Score Reviewed/Action Taken: No GUNNER-7 AMB Questionnaire GUNNER-7 Date GUNNER - 7 assessed: 12/16/24 Feeling nervous, anxious, or on edge: 0 = Not at all Not being able to stop or control worryin = Not at all Worrying too much about different things: 0 = Not at all Trouble relaxin = Not at all Being so restless that it is hard to sit still: 0 = Not at all Becoming easily annoyed or irritable: 0 = Not at all Feeling afraid as if something awful might happen: 0 = Not at all Total GUNNER-7 score (0-4 normal; 5-9 mild; 10-14 moderate; 15-21 severe): 0 Source: Developed by Drs. Rc Duncan, Martha Brooks, Ryan Kramer and colleagues, with an educational casper from [employer]. GUNNER-7 Assessment Billing GUNNER-7 Assessment Tool: GUNNER-7 Assessment 26313 Physical exam (Primary Care) Vital Signs: Last Vital Signs Temp 97.8 F 02/21/25 09:28 Pulse 110 H 02/21/25 09:28 Resp 18 02/21/25 09:28 BP 118/68 02/21/25 09:28 Pulse Ox 99 02/21/25 09:28 Oxygen Delivery Method Room Air 02/21/25 09:28 BMI result Body Mass Index 39.2 Tobacco/Smoking Status: Tobacco use Status Tobacco use date assessed 02/21/25 02/21/25 09:35 Patient Tobacco Use Status Former Tobacco user 02/21/25 09:27 PHQ-9: PHQ-9 Score PHQ-9: Total score 6 02/21/25 09:35 Depression Screening Interpretation: Positive Depression Screening Follow-up: Existing condition Thrive Assessment: Date of Thrive Assessment Date Thrive assessed 02/08/25 02/21/25 09:27 Currently or been in a relationship where the following occur: No concerns reported (pt is single at this time ) Coding Level of Care Code New Pt Level 4 (12214) Complex EM visit Add On G2211 Diagnoses Shortness of breath R06.02 Additional Codes GUNNER-7 Assessment Billing - GUNNER-7 Assessment Tool: GUNNER-7 Assessment 01363 ([id number]) PHQ-9 - 57725 - PHQ-9 Billing: Yes ([id number]) Assessment & Plan Assessment & Plan (1) Shortness of breath: Code(s): R06.02 - Shortness of breath Category: Medical Plan: Shortness of breath in this patient has multiple etiologies. Patient has had aortic valve replacement and is on Coumadin with possibility of a congestive heart failure. Patient is declining aggressive treatment. His symptoms could also be due to severe anemia. Patient has declined a bone marrow study and upper GI endoscopy. In view of the above patient decisions, patient will be managed very conservatively. A vascular surgeon appointment scheduled will be canceled. Plan History of Present Illness - The patient is an 85-year-old male presenting with anemia. - The patient experienced blood loss of unknown origin, requiring hospitalization and transfusion of two units of blood, which improved his condition by 50%. - The source of blood loss remains unidentified, with no visible blood in urine or stool. - The patient declined further diagnostic procedures such as bone marrow biopsy and endoscopy to determine the cause of blood loss. - The patient reports shortness of breath, attributed to anemia, which improves with rest. - The patient has a history of aortic valve replacement and is on lifelong anticoagulation therapy. - He also has a history of a blood clot in 2003, leading to leg swelling during the day. - The patient lives alone, frequently eats out, and uses a cane for mobility. - He has support from family and neighbors for household tasks. Social History - The patient lives alone and frequently eats out. - He uses a cane for mobility and drives himself, although he finds it somewhat challenging. - The patient receives assistance from family and neighbors for telephonic nurse. Review of Systems - Cardiovascular: Reports shortness of breath on exertion. Denies chest pain or palpitations. - Hematologic: Reports anemia and blood loss of unknown origin. Physical Exam General: Cooperative and healthy appearing Nutritional Appearance: Well nourished Orientation/consciousness: Patient oriented x3 Limitations: No limitations Head: Normal to inspection General: Appearance normal, both eyes and all related structures Neck: Normal visual inspection Chest: Normal palpation of entire chest wall Respiratory: Patient experiencing shortness of breath due to anemia. ormal respiratory effort Neurology: Patient oriented x3 Results Plan 1. Anemia - The patient has anemia, likely due to blood loss of unknown origin. - The patient declined further diagnostic procedures such as bone marrow biopsy and endoscopy. - Management involves monitoring hemoglobin levels and providing transfusions as needed. 2. Blood Loss Of Unknown Origin - The source of blood loss remains unidentified, with no visible blood in urine or stool. - The patient declined further diagnostic procedures to identify the source of bleeding. 3. Shortness Of Breath - The patient experiences shortness of breath, attributed to anemia. - Symptoms improve with rest. 4. History Of Blood Clot - The patient has a history of a blood clot in 2003, leading to leg swelling during the day. - The patient is on anticoagulation therapy due to aortic valve replacement. 5. Aortic Valve Replacement - The patient has a history of aortic valve replacement and is on lifelong anticoagulation therapy. Discussion Notes I discussed with the patient the diagnosis of anemia and the potential causes, including blood loss and inadequate production. We reviewed the need for further diagnostic procedures, such as bone marrow biopsy and endoscopy, to identify the source of blood loss, but the patient declined these interventions. I explained that without these tests, we would manage his condition by monitoring hemoglobin levels and providing transfusions as needed. We also discussed the implications of his aortic valve replacement and the necessity of lifelong anticoagulation therapy. The patient was informed about the importance of regular follow-up and was advised to contact us if his symptoms worsen. Patient Instructions - Monitor for any worsening of symptoms, such as increased shortness of breath or fatigue, and contact the clinic if they occur. - Attend regular follow-up appointments to monitor hemoglobin levels and overall health. - Continue anticoagulation therapy as prescribed. - Discuss with the visiting nurse about the possibility of conducting INR checks at home.
[2025-02-21 09:28] VITALS: BP 118/68; PULSE 110; RESP 18; TEMP 36.6; O2SAT 99; BMI 39.2
--- OUTSIDE RECORDS SUMMARY | 2025-02-21 10:30 | XMS_ITS | Clinical Summary ---
Author Organization [facility] Address [address] [facility] [place] [address] Phone Care Team Providers Care Pipe Testing Technician Name Role Phone Shadi Sevilla MD Primary Care Provider Allergies No known active allergies Medications amoxicillin [...] Coronary artery disease 09/10/2017 Overview (09/10/2017): 2012 [facility] AVR (ST J) WITH CABG X 4 [...] EDT) SODIUM 140 133 - 146 mmol/L [facility] CHLORIDE 100 96 - 108 mmol/L [facility] POTASSIUM 4.1 3.3 - 5.1 mmol/L [facility] CO2 28 21 - 35 mmol/L [facility] BUN 20(H) 6 - 19 mg/dL [facility] CREATININE 1.00 0.5 - 1.5 mg/dL [facility] GLUCOSE 97 70 - 99 mg/dL [facility] CALCIUM 9.3 8.4 - 10.3 mg/dL [facility] EGFR 72 >59 mL/min/1.7 3m2 [facility] Comment:If patient is black, multiply result by 1.159. Estimated glomerular filtration rate calculated using the CKD-EPI equation. ANION GAP 16 10 - 20 mmol/L [facility] Blood 03/19/2018 7:55 AM EDT 03/19/2018 7:59 AM EDT Angel Bennett MD LAB BLOOD ORDERABLES Final Resu lt [address] [address] from Last 3 Months or Most Recently Relevant to Health Maintenance Insurance MEDICARE PART A & B [id number] [employer] SUPPLEMENT MEDICARE PART A & B [employer] SUPPLEMENT MEDICARE PART A & B [employer] MED[employer] SUPPLEMENT MEDICARE PART A & B [facility] MEDEX SUPPLEMENT MEDICARE PART A & B [place] MEDEX SUPPLEMENT MEDICARE PART A & B [employer] MED[employer] SUPPLEMENT MEDICARE PART A & B Member Subscriber Plan / Payer ( fective 2006-Present) Name:Tad Villar Member ID:[id number] Relation to Subscriber:Self Name:Tad Villar Subscriber ID:[id number] Payer ID:[id number] Group ID:Not on file Type:Medicare Address: [employer] [address] [place] [id number] [employer] MEDEX SUPPLEMENT MEDICARE PART A & B [place] MEDEX SUPPLEMENT MEDICARE PART A & B [id number] [employer] MEDEX SUPPLEMENT Member Subscriber Plan / Payer (Ef fective 2006-Present) Name:Tad Villar Relation to Subscriber:Self Name:TAD VILLAR Payer ID:[id number] (NAIC) Type:Indemnity Address: [address] [place] [id number] Care Teams Pipe Testing Technician Relationship Specialty Start Date End Date Shadi Sevilla MD PCP - General 04/03/17 Additional Source Comments The information contained in this document represents components of the legal health record. It is not the complete legal health record.[facility]
--- OUTSIDE RECORDS SUMMARY | 2025-02-21 10:30 | XMS_ITS | Encounter Summary ---
Author Organization [facility] Address [address] [facility] [address] [place] [address] Phone Care Team Providers Care Interior Design Instructor Name Role Phone Shadi Sevilla MD Primary Care Provider [phone] Encounter Details Date Type Department Care Team (Late st Contact Info) Description 04/05/2017 Ancillary Orders [facility] [address] [place] [address] Ivan Lopes MD [address] [place] [address] [email or web address] Social History Tobacco Use Types Packs/Day Years [...] on filedocumented in this encounter Care Teams Interior Design Instructor Relationship Specialty Start Date End Date Shadi Sevilla MD PCP - General 04/03/17 documented as of this encounter Additional Source Comments The information contained in this document represents components of the legal health record. It is not the complete legal health record.[facility]
--- OUTSIDE RECORDS SUMMARY | 2025-02-21 10:30 | XMS_ITS | Encounter Summary ---
Author Organization [facility] Address [address] [facility] [address] [place] [address] Phone Care Team Providers Care Derrick Hand Name Role Phone Shadi Sevilla MD Primary Care Provider [phone] Encounter Details Date Type Department Care Team ([facility] Contact Info) Description 10/13/2018 Ancillary Orders Non-Invasive Cardiology [address] [place] [address] [place] [address] Ivan Lopes MD [address] [place] [address] [email or web address] Heart block Social History Tobacco [...] * DEVICE CHECK: PPM REMOTE INTERROGATION WITH TUNNEL MUCKER REVIEW (10/13/2018 12:38 PM EDT) Narrative Ivan Lopse MD - 10/14/2018 1:25 PM EDT Reason for appointment: Remote pacemaker interrogation HPI: Routine 3 month remote pacemaker interrogation. No device related complaints. Indication for device: Heart block. Examination: Device type: Pacemaker Industrial Roofer: [employer] Mode: DDD LRL/UPL: 60/120 bpm [...] disorder documented in this encounter Care Teams Derrick Hand Relationship Specialty Start Date End Date Shadi Sevilla MD PCP - General 04/03/17 documented as of this encounter Additional Source Comments The information contained in this document represents components of the legal health record. It is not the complete legal health record.[facility]
--- OUTSIDE RECORDS SUMMARY | 2025-02-21 10:30 | XMS_ITS | Encounter Summary ---
Author Organization [facility] Address [address] [place] [address] Phone Care Team Providers Care Forge Operator Name Role Phone Shadi Sevilla MD Primary Care Provider [phone] Encounter Details Date Type Department Care Team (Late st Contact Info) Description 05/18/2018 Ancillary Orders [facility] [address] [place] [address] Angel Bennett MD [address] [address] [email or web address] Social History Tobacco Use Types Packs/Day [...] on filedocumented in this encounter Care Teams Forge Operator Relationship Specialty Start Date End Date Shadi Sevilla MD PCP - General 04/03/17 documented as of this encounter Additional Source Comments The information contained in this document represents components of the legal health record. It is not the complete legal health record.[facility]
--- OUTSIDE RECORDS SUMMARY | 2025-02-21 10:30 | XMS_ITS | Encounter Summary ---
Author Organization [facility] Address [address] [facility] [address] [place] [address] Phone Care Team Providers Care Product Applications Scientist Name Role Phone Shadi Sevilla MD Primary Care Provider [phone] Encounter Details Date Type Department Care Team ([facility] Contact Info) Description 07/14/2018 Ancillary Orders Non-Invasive Cardiology [address] [place] [address] [place] [address] Ivan Lopes MD [address] [place] [address] [email or web address] Heart block Social History Tobacco Use [...] * DEVICE CHECK: PPM REMOTE INTERROGATION WITH CHANNEL MACHINE OPERATOR REVIEW (07/14/2018 4:15 PM EST) Narrative Ivan Lopes MD - 07/16/2018 2:09 PM EST Reason for appointment: Remote pacemaker interrogation HPI: Routine 3 month remote pacemaker interrogation. No device related complaints. Indication for device: Heart block. Examination: Device type: Pacemaker Product Applications Scientist: [employer] Mode: DDD LRL/UPL: 60/120 bpm [...] disorder documented in this encounter Care Teams Product Applications Scientist Relationship Specialty Start Date End Date Shadi Sevilla MD PCP - General 04/03/17 documented as of this encounter Additional Source Comments The information contained in this document represents components of the legal health record. It is not the complete legal health record.[facility]
--- OUTSIDE RECORDS SUMMARY | 2025-02-21 10:30 | XMS_ITS | Encounter Summary ---
Author Organization [facility] Address [address] [place] [address] Phone Care Team Providers Care [facility] Name Role Phone Shadi Sevilla MD Primary Care Provider [phone] Encounter Details Date Type Department Care Team (Latest Contact Info) Description 05/18/2018 Ancillary Orders [facility] [address] [place] [address] Angel Bennett MD [address] [place] [address] [email or web address] Coronary artery disease involving kenaitze coronary artery of kenaitze heart without angina pectoris Social History Tobacco [...] Visit Diagnoses Diagnosis Coronary artery disease involving kenaitze coronary artery of kenaitze heart without angina pectoris documented in this encounter Care Teams [facility] Relationship Specialty Start Date End Date Shadi Sevilla MD PCP - General 04/03/17 documented as of this encounter Additional Source Comments The information contained in this document represents components of the legal health record. It is not the complete legal health record.[facility]
--- OUTSIDE RECORDS SUMMARY | 2025-02-21 10:30 | XMS_ITS | Encounter Summary ---
Author Organization [facility] Address [address] [place] [address] Phone Care Team Providers Care Bilingual Call Center Representative Name Role Phone Shadi Sevilla MD Primary Care Provider [phone] Encounter Details Date Type Department Care Team (Late st Contact Info) Description 07/14/2018 Ancillary Orders [facility] [address] [place] [address] Ivan Lopes MD [address] [place] [address] Dr [facility] [place] [address] Social History Tobacco Use Types Packs/Day Years [...] on filedocumented in this encounter Care Teams Bilingual Call Center Representative Relationship Specialty Start Date End Date Shadi Sevilla MD PCP - General 04/03/17 documented as of this encounter Additional Source Comments The information contained in this document represents components of the legal health record. It is not the complete legal health record.[facility]
--- OUTSIDE RECORDS SUMMARY | 2025-02-21 10:30 | XMS_ITS | Encounter Summary ---
Author Organization [facility] Address [address] [place] [address] Phone Care Team Providers Care Water Commissioner Name Role Phone Shadi Sevilla MD Primary Care Provider [phone] Encounter Details Date Type Department Care Team (Latest Contact Info) Description 07/01/2017 Ancillary Orders [facility] [address] 3rd Floor, [address] [place] [address] Ivan Lopes MD [address] [place] [address] [email or web address] Complete heart block Social History [...] for device CHB. Examination: Device type: pacemaker Duplicating Machine Servicer: St Zeus Thresholds, impedances, and sensing stable. [...] complete documented in this encounter Care Teams Water Commissioner Relationship Specialty Start Date End Date Shadi Sevilla MD PCP - General 04/03/17 documented as of this encounter Additional Source Comments The information contained in this document represents components of the legal health record. It is not the complete legal health record.[facility]
--- OUTSIDE RECORDS SUMMARY | 2025-02-21 10:30 | XMS_ITS | Encounter Summary ---
Author Organization [facility] Address [address] [place] [address] Phone Care Team Providers Care Lime Sludge Mixer Name Role Phone Shadi Sevilla MD Primary Care Provider [phone] Encounter Details Date Type Department Care Team ([facility] Contact Info) Description 04/06/2018 Ancillary Orders Non-Invasive Cardiology [address] [place] [address] [place] [address] Ivan Lopes MD [address] [place] [address] [email or web address] Heart block Social History Tobacco Use Types [...] * DEVICE CHECK: PPM REMOTE INTERROGATION WITH JDE DEVELOPER REVIEW (04/06/2018 10:03 AM EDT) Narrative Ivan Lopes MD - 04/08/2018 12:29 PM EDT Reason for appointment: Remote pacemaker interrogation HPI: Routine 3 month remote pacemaker interrogation. No device related complaints. Indication for device: Heart block. Examination: Device type: Pacemaker Ladies Suit Operator: St. Ze[employer] Mode: DDD LRL/UPL: 60/120 [...] disorder documented in this encounter Care Teams Lime Sludge Mixer Relationship Specialty Start Date End Date Shadi Sevilla MD PCP - General 04/03/17 documented as of this encounter Additional Source Comments The information contained in this document represents components of the legal health record. It is not the complete legal health record.[facility]
--- OUTSIDE RECORDS SUMMARY | 2025-02-21 10:30 | XMS_ITS | Encounter Summary ---
Author Organization [facility] Address [address] [place] [address] Phone Care Team Providers Care Orthopedic Nurse Practitioner Name Role Phone Shadi Sevilla MD Primary Care Provider [phone] Encounter Details Date Type Department Care Team (Late st Contact Info) Description 04/06/2018 Ancillary Orders [facility] [address] [place] [address] Ivan Lopes MD [address] [place] [address] [place] [address] [email or web address] Social History Tobacco Use Types Packs/Day Years [...] on filedocumented in this encounter Care Teams Orthopedic Nurse Practitioner Relationship Specialty Start Date End Date Shadi Sevilla MD PCP - General 04/03/17 documented as of this encounter Additional Source Comments The information contained in this document represents components of the legal health record. It is not the complete legal health record.[facility]
--- OUTSIDE RECORDS SUMMARY | 2025-02-21 10:30 | XMS_ITS | Encounter Summary ---
Author Organization [facility] Address [address] [place] [address] Phone Care Team Providers Care Collections And Archives Director Name Role Phone Shadi Sevilla MD Primary Care Provider [phone] Encounter Details Date Type Department Care Team (Latest Contact Info) Description 04/05/2017 Ancillary Orders [facility] [address] 3rd [address], [address] [place] [address] Ivan Lopes MD [address] [place] [address] [email or web address] Diagnosis unknown Social History Tobacco Use Types [...] unknown documented in this encounter Care Teams Collections And Archives Director Relationship Specialty Start Date End Date Shadi Sevilla MD PCP - General 04/03/17 documented as of this encounter Additional Source Comments The information contained in this document represents components of the legal health record. It is not the complete legal health record.[facility]
--- OUTSIDE RECORDS SUMMARY | 2025-02-21 10:30 | XMS_ITS | Encounter Summary ---
Author Organization [facility] Address [address] [place] [address] Phone Care Team Providers Care Surgical Coder Name Role Phone Shadi Sevilla MD Primary Care Provider [phone] Encounter Details Date Type Department Care Team (Late st Contact Info) Description 10/13/2018 Ancillary Orders [facility] [address] [place] [address] Ivan Lopes MD [address] [facility] [place] [address] [email or web address] Social History Tobacco Use Types Packs/Day Years [...] on filedocumented in this encounter Care Teams Surgical Coder Relationship Specialty Start Date End Date Shadi Sevilla MD PCP - General 04/03/17 documented as of this encounter Additional Source Comments The information contained in this document represents components of the legal health record. It is not the complete legal health record.[facility]
== END 2025-02-21 09:57 | disposition home or self-care (01) ==
LOC: HO.HMCSH 09:20
PROVIDERS: PCP Internal Medicine; Visit Provider Internal Medicine
DX: R06.02 Shortness of breath (principal)

== ENCOUNTER → 2025-02-21 09:20 | Outpatient (BNVA) | payer MEDICARE, SELFPAY | PROVIDERS: PCP Internal Medicine; Visit Provider Internal Medicine | DX: R06.02 Shortness of breath (principal); D64.9 Anemia, unspecified; Z95.2 Presence of prosthetic heart valve; Z79.01 Long term (current) use of anticoagulants | CPT/HCPCS: 96127; 99202 ==

== ENCOUNTER → 2025-02-21 23:59 | Outpatient (BNV) | payer MEDICARE, SELFPAY ==
--- NOTE | 2025-03-25 21:24 | A.OFFVIS_ITS ---
Intake Visit Reasons: Remote ICD check- [facility] Allergies Penicillins (PENICILLINS) Allergy (Severe, Verified 03/25/25 10:19) [facility] Medical History Anemia Shortness of breath Palliative care patient ICD (implantable cardioverter-defibrillator) in place Chronic diastolic CHF (congestive heart failure) Ulcerative colitis DVT (deep venous thrombosis) CAD (coronary artery disease) Leg swelling Chronic anemia Peripheral edema Arthritis Annual physical exam Bilateral knee pain History of bad fall Multiple joint pain Fall on ice Morbid obesity with BMI of 40.0-44.9, adult Cardiomyopathy History of left bundle branch block Hypertension Fatigue Current use of anticoagulant therapy Surgical History History of cardiac cath History of aortic valve replacement Family History Father Kidney problem Mother Cancer Social History Household Members: None Housing: House Do you presently have visiting nurse or other home services: No Alcohol intake: current Alcohol intake frequency: a few times a month Alcohol type: beer Patient Tobacco Use Status: Former Tobacco user Years Smoked: 23 +/- Advance Directives Date on File: 02/07/25 service: No Current occupational status: retired Cognitive needs: Yes (cane) Hearing needs: No Vision needs: Yes (reading glasses) Office Procedures Cardiac Device Check Cardiac Device Check Details: BiV AICD Battery life 1.8 year BP>99% No new alerts. [id number] Cardiac Device Interrogation, pacemaker or defibrillator Procedure code (CPT) selection complete Results AMB INR Fingerstick AMB INR Fingerstick 3.1 Last Edit by Janet Deng RN on 02/21/25 14:38 interface delay Assessment & Plan Assessment & Plan (1) Cardiomyopathy: Code(s): I42.9 - Cardiomyopathy, unspecified Category: Medical Plan Coding Level of Care Code Procedure Only Diagnoses Cardiomyopathy I42.9 CPT Codes Cardiac Device Check - Cardiac Device 14: [id number] Cardiac Device Interrogation, pacemaker or defibrillator ([id number])
== END ==
PROVIDERS: PCP Internal Medicine; Visit Provider Internal Medicine Cardiovascular Disease
DX: I42.9 Cardiomyopathy, unspecified (principal); Z95.810 Presence of automatic (implantable) cardiac defibrillator
CPT/HCPCS: 93295

== ENCOUNTER 2025-02-24 08:46 | Outpatient (REF) | payer MEDICARE, SELFPAY ==
--- OUTSIDE RECORDS SUMMARY | 2025-02-25 09:46 | XMS_ITS | Encounter Summary ---
Author Organization [facility] Address [address] [place] [address] Phone Care Team Providers Care Gas System Operator Name Role Phone Shadi Sevilla MD Primary Care Provider [phone] Encounter Details Date Type Department Care Team (Late st Contact Info) Description 07/14/2018 Ancillary Orders [facility] [address] [place] [address] Ivan Lopes MD [address] [place] [address] Dr [facility] [place] [address] [email or web address] Social History Tobacco Use Types Packs/Day Years [...] on filedocumented in this encounter Care Teams Gas System Operator Relationship Specialty Start Date End Date Shadi Sevilla MD PCP - General 04/03/17 documented as of this encounter Additional Source Comments The information contained in this document represents components of the legal health record. It is not the complete legal health record.[facility]
--- OUTSIDE RECORDS SUMMARY | 2025-02-25 09:46 | XMS_ITS | Encounter Summary ---
Author Organization [facility] Address [address] [place] [address] Phone Care Team Providers Care Liner Helper Name Role Phone Shadi Sevilla MD Primary Care Provider [phone] Encounter Details Date Type Department Care Team (Latest Contact Info) Description 05/18/2018 Ancillary Orders [facility] [address] [place] [address] Angel Bennett MD [address] [place] [address] [email or web address] Coronary artery disease involving coquille coronary artery of coquille heart without angina pectoris Social History Tobacco [...] Visit Diagnoses Diagnosis Coronary artery disease involving coquille coronary artery of coquille heart without angina pectoris documented in this encounter Care Teams Liner Helper Relationship Specialty Start Date End Date Shadi Sevilla MD PCP - General 04/03/17 documented as of this encounter Additional Source Comments The information contained in this document represents components of the legal health record. It is not the complete legal health record.[facility]
--- OUTSIDE RECORDS SUMMARY | 2025-02-25 09:46 | XMS_ITS | Encounter Summary ---
Author Organization [facility] Address [address] [place] [address] Phone Care Team Providers Care Bladder Cleaner Name Role Phone Shadi Sevilla MD Primary Care Provider [phone] Encounter Details Date Type Department Care Team (Late st Contact Info) Description 04/06/2018 Ancillary Orders [facility] [address] [place] [address] Ivan Lopes MD [address] [place] [address] [place] [address] [email or web address] Social History Tobacco Use Types Packs/Day Years [...] on filedocumented in this encounter Care Teams Bladder Cleaner Relationship Specialty Start Date End Date Shadi Sevilla MD PCP - General 04/03/17 documented as of this encounter Additional Source Comments The information contained in this document represents components of the legal health record. It is not the complete legal health record.[facility]
--- OUTSIDE RECORDS SUMMARY | 2025-02-25 09:46 | XMS_ITS | Encounter Summary ---
Author Organization [facility] Address [address] [place] [address] Phone Care Team Providers Care Merchandiser Seasonal Name Role Phone Shadi Sevilla MD Primary Care Provider Encounter Details Date Type Department Care Team ([facility] Contact Info) Description 07/14/2018 Ancillary Orders Non-Invasive Cardiology [address] [place] [address] [place] [address] Ivan Lopes MD [address] [place] [address] [email or web address] Heart block Social History [...] * DEVICE CHECK: PPM REMOTE INTERROGATION WITH WAXER OPERATOR REVIEW (07/14/2018 4:15 PM EST) Narrative Ivan Lopes MD - 07/16/2018 2:09 PM EST Reason for appointment: Remote pacemaker interrogation HPI: Routine 3 month remote pacemaker interrogation. No device related complaints. Indication for device: Heart block. Examination: Device type: Pacemaker Ap Processor: St. Zeus Mode: DDD LRL/UPL: 60/120 bpm [...] disorder documented in this encounter Care Teams Merchandiser Seasonal Relationship Specialty Start Date End Date Shadi Sevilla MD PCP - General 04/03/17 documented as of this encounter Additional Source Comments The information contained in this document represents components of the legal health record. It is not the complete legal health record.[facility]
--- OUTSIDE RECORDS SUMMARY | 2025-02-25 09:46 | XMS_ITS | Encounter Summary ---
Author Organization [facility] Address [address] [place] [address] Phone Care Team Providers Care Blood Bank Supervisor Name Role Phone Shadi Sevilla MD Primary Care Provider [phone] Encounter Details Date Type Department Care Team ([facility] Contact Info) Description 04/06/2018 Ancillary Orders Non-Invasive Cardiology [address] [place] [address] [place] [address] Ivan Lopes MD [address] [place] [address] [email or web address] Heart block Social History Tobacco Use [...] * DEVICE CHECK: PPM REMOTE INTERROGATION WITH MISSING PERSONS INVESTIGATOR REVIEW (04/06/2018 10:03 AM EDT) Narrative Iavn Lopes MD - 04/08/2018 12:29 PM EDT Reason for appointment: Remote pacemaker interrogation HPI: Routine 3 month remote pacemaker interrogation. No device related complaints. Indication for device: Heart block. Examination: Device type: Pacemaker Hospital Admitting Clerk: St. Zeus Mode: DDD LRL/UPL: 60/120 bpm [...] disorder documented in this encounter Care Teams Blood Bank Supervisor Relationship Specialty Start Date End Date Shadi Sevilla MD PCP - General 04/03/17 documented as of this encounter Additional Source Comments The information contained in this document represents components of the legal health record. It is not the complete legal health record.[facility]
--- OUTSIDE RECORDS SUMMARY | 2025-02-25 09:46 | XMS_ITS | Encounter Summary ---
Author Organization [facility] Address [address] [place] [address] Phone Care Team Providers Care Red Cross Worker Name Role Phone Shadi Sevilla MD Primary Care Provider [phone] Encounter Details Date Type Department Care Team (Late st Contact Info) Description 10/13/2018 Ancillary Orders [facility] [address] [place] [address] Ivan Lopes MD [address] [facility] [place] [address] [email or web address] Social History Tobacco Use Types Packs/Day Years [...] on filedocumented in this encounter Care Teams Red Cross Worker Relationship Specialty Start Date End Date Shadi Sevilla MD PCP - General 04/03/17 documented as of this encounter Additional Source Comments The information contained in this document represents components of the legal health record. It is not the complete legal health record.[facility]
--- OUTSIDE RECORDS SUMMARY | 2025-02-25 09:46 | XMS_ITS | Encounter Summary ---
Author Organization [facility] Address [address] [place] [address] Phone Care Team Providers Care Supervisor Gelatin Plant Name Role Phone Shadi Sevilla MD Primary Care Provider Encounter Details Date Type Department Care Team (Latest Contact Info) Description 07/01/2017 Ancillary Orders [facility] [address] [facility] [address] [address] [facility] 3rd Floor, [address] [place] [address] Ivan Lopes MD [address] [place] [address] [email or web address] Complete heart block Social History [...] for device CHB. Examination: Device type: pacemaker Agent: St Zeus Thresholds, impedances, and sensing stable. [...] complete documented in this encounter Care Teams Supervisor Gelatin Plant Relationship Specialty Start Date End Date Shadi Sevilla MD PCP - General 04/03/17 documented as of this encounter Additional Source Comments The information contained in this document represents components of the legal health record. It is not the complete legal health record.[facility]
--- OUTSIDE RECORDS SUMMARY | 2025-02-25 09:48 | XMS_ITS | Encounter Summary ---
Author Organization [facility] Address [address] [place] [address] Phone Care Team Providers Care Garbage Truck Helper Name Role Phone Shadi Sevilla MD Primary Care Provider Encounter Details Date Type Department Care Team (Late st Contact Info) Description 04/05/2017 Ancillary Orders [facility] [address] [place] [address] Ivan Lopes MD [address] [place] [address] [email or web address] Social History Tobacco Use Types Packs/Day Years [...] on filedocumented in this encounter Care Teams Garbage Truck Helper Relationship Specialty Start Date End Date Shadi Sevilla MD PCP - General 04/03/17 documented as of this encounter Additional Source Comments The information contained in this document represents components of the legal health record. It is not the complete legal health record.[facility]
--- OUTSIDE RECORDS SUMMARY | 2025-02-25 09:48 | XMS_ITS | Encounter Summary ---
Author Organization [facility] Address [address] [place] [address] Phone Care Team Providers Care Inspector Canvas Products Name Role Phone Shadi Sevilla MD Primary Care Provider [phone] Encounter Details Date Type Department Care Team ([facility] Contact Info) Description 10/13/2018 Ancillary Orders Non-Invasive Cardiology [address] [place] [address] [place] [address] Ivan Lopes MD [address] [place] [address] [email or web address] Heart block Social History Tobacco Use Types [...] * DEVICE CHECK: PPM REMOTE INTERROGATION WITH CHAIN SAW MECHANIC REVIEW (10/13/2018 12:38 PM EDT) Narrative Ivan Lopes MD - 10/14/2018 1:25 PM EDT Reason for appointment: Remote pacemaker interrogation HPI: Routine 3 month remote pacemaker interrogation. No device related complaints. Indication for device: Heart block. Examination: Device type: Pacemaker Live In Housekeeper Nanny: St. Zeus Mode: DDD LRL/UPL: 60/120 bpm [...] disorder documented in this encounter Care Teams Inspector Canvas Products Relationship Specialty Start Date End Date Shadi Sevilla MD PCP - General 04/03/17 documented as of this encounter Additional Source Comments The information contained in this document represents components of the legal health record. It is not the complete legal health record.[facility]
--- OUTSIDE RECORDS SUMMARY | 2025-02-25 09:48 | XMS_ITS | Encounter Summary ---
Author Organization [facility] Address [address] [place] [address] Phone Care Team Providers Care Watch Guard Gate Name Role Phone Shadi Sevilla MD Primary Care Provider [phone] Encounter Details Date Type Department Care Team (Latest Contact Info) Description 04/05/2017 Ancillary Orders [facility] [address] [facility] 3rd Floor, [address] [place] [address] Ivan Lopes MD [address] [place] [address] [email or web address] Diagnosis unknown Social History Tobacco Use [...] unknown documented in this encounter Care Teams Watch Guard Gate Relationship Specialty Start Date End Date Shadi Sevilla MD PCP - General 04/03/17 documented as of this encounter Additional Source Comments The information contained in this document represents components of the legal health record. It is not the complete legal health record.[facility]
--- OUTSIDE RECORDS SUMMARY | 2025-02-25 09:48 | XMS_ITS | Encounter Summary ---
Author Organization [facility] Address [address] [place] [address] Phone Care Team Providers Care Manager Training And Development Name Role Phone Shadi Sevilla MD Primary Care Provider [phone] Encounter Details Date Type Department Care Team (Late st Contact Info) Description 05/18/2018 Ancillary Orders [facility] [address] [place] [address] Angel Bennett MD [address] [address] [email or web address] Social History Tobacco Use Types Packs/Day Years [...] on filedocumented in this encounter Care Teams Manager Training And Development Relationship Specialty Start Date End Date Shadi Sevilla MD PCP - General 04/03/17 documented as of this encounter Additional Source Comments The information contained in this document represents components of the legal health record. It is not the complete legal health record.[facility]
== END 2025-02-24 08:47 | disposition home or self-care (01) ==
LOC: HO.HOSX 08:46
PROVIDERS: Visit Provider Physician Assistant
DX: Z13.89 Encounter for screening for other disorder (principal)

== ENCOUNTER 2025-03-15 09:30 | Outpatient (REF) | payer MEDICARE, SELFPAY ==
[2025-03-15 10:44] LABS: Imm Gran Abs Auto 0.01 X10*3/uL (0.00-0.03); Imm Gran Pct Auto 0.4 % (0.0-0.4); Lymphocytes Absolute Auto 1.8 X10*3/uL (1.2-4.9); MANUAL DIFF FLAG SCAN; Mean Corpuscular HGB Conc 32.6 g/dl (31.0-36.0); Mean Corpuscular Hemoglobin 33.3 pg (27.0-33.0); Mean Corpuscular Volume 102.2 fL (80.0-98.0); NRBC Abs Auto 9.460 X10*3/uL (0.0-0.012); Red Blood Count 1.80 X10*6/uL (4.60-5.80); SCAN SMEAR FLAG 1; White Blood Count 2.7 X10*3/uL (4.8-10.8)
[2025-03-15 10:45] LABS: NRBC Pct Auto 350.4 /100WBC (0.0-0.2); Platelet Count 46 X10*3/uL (160-400)
[2025-03-15 10:50] LABS: INTERNATIONAL NORM RATIO 1.6 (0.9-1.1); Prothrombin Time 17.9 SEC (10.9-12.4)
[2025-03-15 11:06] LABS: Hematocrit 18.4 % (42.0-52.0); Hemoglobin 6.0 g/dl (14.0-18.0)
== END 2025-03-15 09:31 | disposition home or self-care (01) ==
LOC: HO.LAB 09:30
PROVIDERS: PCP Internal Medicine; Visit Provider Internal Medicine Medical Oncology
DX: I10 Essential (primary) hypertension (principal); D64.9 Anemia, unspecified; D61.818 Other pancytopenia; Z79.01 Long term (current) use of anticoagulants; Z79.899 Other long term (current) drug therapy
CPT/HCPCS: 36415; 85025; 85027; 85610; 99212

== ENCOUNTER 2025-03-15 13:59 | Outpatient (AMB) | payer MEDICARE, SELFPAY ==
[2025-03-15 14:04] VITALS: BP 142/80; PULSE 92; RESP 18; TEMP 36.6; O2SAT 95; BMI 39.1
--- NOTE | 2025-03-15 14:04 | MHC.PC.OV ---
Vital Signs 03/15/25 14:04 Height 5 ft 8 in Weight 257 lb BMI 39.1 BP 142/80 H Respiration 18 Pulse 92 Pulse Source Pulse Oximeter Temp 97.9 F Temp Source Temporal Artery Scan Pulse Oximetry (%) 95 Oxygen Delivery Method Room Air Intake Visit Reasons: discuss blood work Instructor Tap Dancing Required: No Accompanied by: Self / Same As Patient Allergies Penicillins (PENICILLINS) Allergy (Severe, Verified 03/15/25 14:37) HIVES Medication List - Last Reconciled 03/15/25 by Irish Jones PA-C acetaminophen ER 650 mg PO Q6H PRN atorvastatin 40 mg PO DAILY cane Folding cane please.Use daily due to unsteady on feet and recurrent falls cyclobenzaprine 10 mg PO Q8H PRN furosemide 40 mg PO DAILY@1700 furosemide (Lasix) 80 mg PO DAILY metoprolol succinate ER 50 mg PO DAILY multivit,calc,wkx-KT-F9-lycop 240 mcg-30 mcg- 300 mcg (One-A-Day Men's Complete) 1 tab PO DAILY warfarin 5 mg See Protocol PO MOTH@1800 warfarin 2.5 mg See Protocol PO SUTUWEFRSA@1800 Tobacco use date assessed: 02/21/25 Dental Screening Dental Screen Date: 12/16/24 HPI discuss blood work HPI Details The patient is an 85-year-old male presenting with anemia and pancytopenia. The patient reports feeling generally unwell and lacking energy, with significant fatigue upon minimal exertion, such as walking from the car to the clinic. He denies experiencing chest pain but reports dyspnea. The patient was previously hospitalized due to pancytopenia, during which he received two units of blood, resulting in a temporary improvement in his condition. His hemoglobin levels have been fluctuating, initially recorded at 7.1 g/dL, dropping to 6.5 g/dL, then rising to 8.6 g/dL post-transfusion, and currently at 6.0 g/dL. Additionally, his platelet count is significantly low at 46,000/?L, compared to the normal range of 160,000/?L. [facility] Medical History (Updated 03/15/25 @ 14:44 by Irish Jones PA-C) Anemia Shortness of breath Palliative care patient ICD (implantable cardioverter-defibrillator) in place Chronic diastolic CHF (congestive heart failure) Ulcerative colitis DVT (deep venous thrombosis) CAD (coronary artery disease) Leg swelling Chronic anemia Peripheral edema Arthritis Annual physical exam Bilateral knee pain History of bad fall Multiple joint pain Fall on ice Morbid obesity with BMI of 40.0-44.9, adult Cardiomyopathy History of left bundle branch block Hypertension Fatigue Current use of anticoagulant therapy Surgical History History of cardiac cath History of aortic valve replacement Family History Father Kidney problem Mother Cancer Social History Household Members: None Housing: House Do you presently have visiting nurse or other home services: No Alcohol intake: current Alcohol intake frequency: a few times a month Alcohol type: beer Patient Tobacco Use Status: Former Tobacco user Years Smoked: 23 +/- Advance Directives Date on File: 02/07/25 service: No Current occupational status: retired Cognitive needs: Yes (cane) Hearing needs: No Vision needs: Yes (reading glasses) Questionnaire Thrive Questionnaire Date Thrive assessed: 02/08/25 GUNNER-7 AMB Questionnaire GUNNER-7 Date GUNNER - 7 assessed: 12/16/24 Source: Developed by Drs. Rc Duncan, Martha Brooks, Ryan Kramer and colleagues, with an educational casper from [employer]. Review of Systems Const Details: - General: Reports fatigue and lack of energy. - Cardiovascular: Denies chest pain. - Respiratory: Reports dyspnea. All systems reviewed & are unremarkable except as noted in HPI and below Physical exam (Primary Care) Vital Signs: Last Vital Signs Temp 97.9 F 03/15/25 14:04 Pulse 92 03/15/25 14:04 Resp 18 03/15/25 14:04 BP 142/80 H 03/15/25 14:04 Pulse Ox 95 03/15/25 14:04 Oxygen Delivery Method Room Air 03/15/25 14:04 Care Plan Goal for BP management: <140/90 BMI result Body Mass Index 39.1 BMI Assessment/Plan discussion: High BMI High, discussed plan: lifestyle, weight reduction, dietary, physical activity, alcohol moderation and other Tobacco/Smoking Status: Tobacco use Status Tobacco use date assessed 02/21/25 03/15/25 14:05 Patient Tobacco Use Status Former Tobacco user 03/15/25 14:05 Thrive Assessment: Date of Thrive Assessment Date Thrive assessed 02/08/25 03/15/25 14:05 Const Other: Appearance: Alert. Oriented X3. No acute distress. Head: Normal external exam. Normocephalic. Atraumatic. Eyes: Pupils are equal, round, and reactive to light. Extraocular movements intact. Conjunctiva and sclera normal. Eyelids normal. Throat: Pharynx normal. Uvula midline. Moist mucous membranes. Neck: Normal inspection. Neck supple. Full range of motion. Cardiovascular: Normal heart rate and rhythm. Heart sound normal. No murmurs noted. Pulses normal throughout. Respiratory: No respiratory distress. Painless inspiration. Breath sounds normal. No wheezes/rales/rhonchi noted. Chest nontender. No accessory muscle usage noted or decreased air movement noted. Back: Full range of motion noted. Skin: Skin warm and dry. pallor Extremities: Extremities exhibit normal range of motion. Results AMB INR Fingerstick AMB INR Fingerstick 1.4 Last Edit by Destinee Pascal RN on 03/15/25 09:41 VNA Results Reviewed Results Reviewed: - Labs: Hemoglobin at 6.0 g/dL, previously 7.1 g/dL, 6.5 g/dL, and 8.6 g/dL post-transfusion. - Labs: Platelet count at 46,000/?L, normal range is 160,000/?L. Coding Level of Care Code Est Pt Level 5 (80828) Complex EM visit Add On G2211 Diagnoses Anemia D64.9 Pancytopenia D61.818 Time Spent (min) 45 Comment I discussed this case with MANUEL Lincoln at the emergency department [facility] Assessment & Plan Assessment & Plan (1) Anemia: Code(s): D64.9 - Anemia, unspecified Category: Medical Plan: The patient requires hospitalization for further management of severe anemia, with a hemoglobin level of 6.0 g/dL, necessitating transfusion of three units of blood and possibly platelets. The patient has been advised to proceed to the emergency department for immediate care, as the transfusion process will take several hours. (2) Pancytopenia: Code(s): D61.818 - Other pancytopenia Category: Medical Plan: The patient's pancytopenia, characterized by low hemoglobin and platelet counts, requires further evaluation and management in the hospital setting. The plan includes monitoring blood counts and assessing the need for additional transfusions or interventions. Plan Plan Patient was informed and verbally consented to the use of an ambient scribe for clinic note documentation during this visit. 1. Anemia The patient requires hospitalization for further management of severe anemia, with a hemoglobin level of 6.0 g/dL, necessitating transfusion of three units of blood and possibly platelets. The patient has been advised to proceed to the emergency department for immediate care, as the transfusion process will take several hours. 2. Pancytopenia The patient's pancytopenia, characterized by low hemoglobin and platelet counts, requires further evaluation and management in the hospital setting. The plan includes monitoring blood counts and assessing the need for additional transfusions or interventions. I discussed with the patient the severity of his anemia and pancytopenia, emphasizing the need for immediate hospitalization to receive blood transfusions and further evaluation. I explained the transfusion process, including the duration and the necessity of staying overnight for monitoring. The patient was informed about the potential need for platelet transfusion and the importance of addressing his low blood counts. Patient Instructions: - Go to the emergency department immediately after letting your dog out. - Expect to stay overnight for blood transfusions. - Follow up with your primary care physician after discharge from the hospital.
== END 2025-03-15 14:36 | disposition home or self-care (01) ==
LOC: HO.HMCSH 13:59
PROVIDERS: PCP Internal Medicine; Visit Provider Physician Assistant Medical
DX: D64.9 Anemia, unspecified (principal); D61.818 Other pancytopenia

== ENCOUNTER 2025-03-15 15:27 | Inpatient (IN) | payer MEDICARE, SELFPAY ==
[2025-03-15] VITALS (8 sets, daily range): BP systolic 107–156; BP diastolic 53–69; PULSE 96–106; RESP 14–22; TEMP 36.3–37.1; O2SAT 97–98; BMI 38.1
--- NOTE | ~2025-03-15 | XR_ITS ---
EXAMINATION: XR CHEST CLINICAL INFORMATION: SOB COMPARISON: 02/07/2025, 01/14/2019. TECHNIQUE: 2 views of the chest were obtained. FINDINGS: Mildly elevated right hemidiaphragm, unchanged. Left-sided AICD device in place with leads extending into the right atrium, right ventricle, and coronary sinus. There has been a median sternotomy and aortic valve replacement. The cardiac, hilar, and mediastinal contours are normal. Aortic mural calcification. The lungs are clear bilaterally. There is no pneumothorax or pleural effusion. There is no focal osseous or soft tissue abnormality. There are degenerative spinal changes present. XR/XR chest 2V IMPRESSION: 1. No active pulmonary disease. 2. Left-sided 3-lead AICD device in place. 3. Prior sternotomy and aortic valve replacement. Electronically signed by: Darwin Polanco MD 03/15/2025 04:20 PM EDT
--- NOTE | ~2025-03-15 | US_ITS ---
EXAMINATION: US TRIPLEX LOWER EXTREMITY, BILATERAL CLINICAL INFORMATION: Edema, lower extremities COMPARISON: None available. TECHNIQUE: Color-flow triplex imaging with spectral analysis and compression Doppler were performed on the bilateral lower extremities. FINDINGS: Respiratory variation, normal compression and augmented flow are demonstrated throughout the interrogated common femoral vein, superficial femoral vein, profunda femoral vein, popliteal vein and midcalf peroneal and posterior tibial venous segments, bilaterally. Soft tissue edema without fluid collections. There is no Ellis's cyst. US/US venous duplex LE BI IMPRESSION: No acute deep venous thrombosis interrogated veins both lower extremities. Negative for DVT.. Electronically signed by: Florentino Ordaz MD 03/16/2025 08:29 AM EDT
--- NOTE | 2025-03-15 15:49 | ED.RECABL ---
HPI - Recheck/Abnormal Lab/Rx General Chief Complaint: Recheck/Abnormal Lab/Rx Stated Complaint: ?Blood transfusion sent by pcp Time Seen by Provider: 03/15/25 16:55 Source: patient Mode of arrival: ambulatory Limitations: no limitations History of Present Illness ED Provider: Dr. Usha Fregoso HPI narrative: Patient comes to the emergency room stating that his PCP told him that his hemoglobin is low and needs a blood transfusion. Patient states that he is known to have anemia and has needed multiple transfusions in the past. Patient states that he has been feeling very weak, no energy, very short of breath with the exertion. Patient states that besides anemia he also has CHF and has also noted that his legs are a bit more swollen than usual but not excessively. Patient complaining of orthopnea. Patient denies any fever or chills. Patient denies chest pain, denies blood in the stool or dark stool. Patient is on warfarin for mechanical heart valve Related Data Home Medications ?Medication ?Instructions ?Recorded ?Confirmed multivit,calc,mins-folic 240 1 tab PO DAILY 07/26/21 03/15/25 mcg-vit K1 30 mcg-lycopene 300 mcg tablet (One-A-Day Men's Complete) acetaminophen 650 mg 650 mg PO Q6H PRN Pain 07/22/24 03/15/25 tablet,extended release cyclobenzaprine 10 mg tablet 10 mg PO Q8H PRN muscle spasm 02/07/25 03/15/25 furosemide 40 mg tablet 40 mg PO DAILY@1700 02/07/25 03/15/25 furosemide 40 mg tablet (Lasix) 80 mg PO DAILY 02/07/25 03/15/25 warfarin 5 mg tablet 2.5 mg PO SUTUWEFRSA@1800 02/07/25 03/15/25 warfarin 5 mg tablet 5 mg PO MOTH@1800 02/07/25 03/15/25 Previous Rx's ?Medication ?Instructions ?Recorded cane #1 ea 09/07/24 atorvastatin 40 mg tablet 40 mg PO DAILY #90 tabs 10/12/24 metoprolol succinate 50 mg 50 mg PO DAILY #90 tabs 10/15/24 tablet,extended release 24 hr Allergies Allergy/AdvReac Type Severity Reaction Status Date / Time Penicillins (PENICILLINS) Allergy Severe HIVES Verified 03/15/25 15:47 Review of Systems Review of Systems: Constitutional : No Weight loss, No Fever, No Chills, No Night Sweats, complaining of fatigue, No Malaise ENT/Mouth : No Hearing loss, No Ear Pain, No Nasal Congestion, No Sinus Pain, No Hoarseness, No sore throat, No Rhinorrhea, No Swallowing Difficulty Eyes: No Eye Pain, No Swelling, No Redness, No Foreign Body, No Discharge, No Vision Changes Cardiovascular : No Chest Pain, No SOB, complaining of Dyspnea on Exertion, complaining of Orthopnea, complaining of acute on chronic lower extremity edema, no palpitations Respiratory : No Cough, No Sputum, No Wheezing, No Smoke Exposure, No Dyspnea Gastrointestinal : No Nausea, No Vomiting, No Diarrhea, No Constipation, No abdominal Pain, No Hematochezia, No Melena Genitourinary : no irregular bleeding, No Dysuria, No Urinary Frequency, No Hematuria, No Urinary Incontinence, No Urgency, No Flank Pain, No Urinary Flow Changes, No Hesitancy Musculoskeletal : No joint pain, No Myalgias, No Joint Swelling Skin : No Skin Lesions, No rash Neuro : No Weakness, No Numbness, No Paresthesias, No Loss of Consciousness, No Dizziness, No Headache Psych : No Anxiety/Panic, No Depression, No SI/HI/AH/VH, No Social Issues, Heme/Lymph: No Bruising, No Bleeding,No Lymphadenopathy Endocrine : No Polyuria, No Polydipsia, No Temperature Intolerance [facility] Past Medical History Medical History Anemia Shortness of breath Palliative care patient ICD (implantable cardioverter-defibrillator) in place Chronic diastolic CHF (congestive heart failure) Ulcerative colitis DVT (deep venous thrombosis) CAD (coronary artery disease) Leg swelling Chronic anemia Peripheral edema Arthritis Annual physical exam Bilateral knee pain History of bad fall Multiple joint pain Fall on ice Morbid obesity with BMI of 40.0-44.9, adult Cardiomyopathy History of left bundle branch block Hypertension Fatigue Current use of anticoagulant therapy Surgical History History of cardiac cath History of aortic valve replacement Family History Family History Father Kidney problem Mother Cancer Social History Social History Household Members: None Housing: House Do you presently have visiting nurse or other home services: No Alcohol intake: current Alcohol intake frequency: a few times a month Alcohol type: beer Patient Tobacco Use Status: Former Tobacco user Years Smoked: 23 +/- Smoked in Last 30 Days: No Use of substances other than those prescribed or required for medical reasons: No Advance Directives: Yes Advance Directives on File: Yes Advance Directives Date on File: 02/07/25 service: No Current occupational status: retired Cognitive needs: Yes (cane) Hearing needs: No Vision needs: Yes (reading glasses) Physical Exam Exam: Exam: Appearance: Alert. Oriented X3. No acute distress. Eyes: Pupils equal, round and reactive to light. ENT: Pharynx normal. Neck: Normal inspection. Neck supple. No lymph nodes noted. No crepitus CVS: Normal heart rate and rhythm. Pulses normal. Normal S1 and S2 Respiratory: No respiratory distress. Breath sounds normal. No Wheezing. No rales Abdomen: Soft and nontender. No rigidity. No distention. Digital rectal exam shows brown stool Skin: Skin warm and dry. Slightly pale skin color. Normal skin turgor. Extremities: Chronic venous stasis bilaterally with +4 pitting edema Neuro: Oriented X 3. No motor deficit. No sensory deficit. Moving all extremities. No slurred speech. CN 2 through 12 grossly intact Psych: calm, cooperative, normal affect Vital Signs: Vital Signs: Last Vital Signs Temp 98.1 F 03/15/25 17:01 Pulse 106 H 03/15/25 17:01 Resp 16 03/15/25 17:01 BP 118/55 L 03/15/25 17:01 Pulse Ox 98 03/15/25 17:01 O2 Del Method Room Air 03/15/25 17:01 BMI result Body Mass Index 38.1 Course Course Course Narrative: This is an RME: Additional HPI, ROS, PE not included below will be deferred to primary provider. RME assessment and note performed by: Latonia Cohen PA-C Very pleasant 84-year-old male, with a background history of CAD s/p ischemic cardiomyopathy s/p AICD, mechanical AVR on warfarin, chronic anemia, ulcerative colitis, chronic R LE DVT, lower extremity lymphedema, presents with complaints of shortness of breath. Patient tachycardic at 106, unable to walk prolonged distances due to shortness of breath. Patient called in and expect as patient was found to be anemic at 6.8. Was recently admitted for pancytopenia. Plan: Labs, EKG, cxr, further ER eval Medical Decision Making Medical Decision Making [facility] Narrative: My interpretation of labs: Patient has been CRP anemia, chronic, however, today he has worsening hemoglobin hematocrit levels, today 6.1 hemoglobin, hematocrit 18.1, patient's chemistry shows acute kidney injury with a creatinine of 1.53, patient's creatinine baseline is 1.1. Patient's troponin is 41.9. Patient has no chest pain. Patient's BNP is elevated, pro BNP 1369, patient known to have CHF. I reviewed patient's medical chart from previous admission. Seems that patient has declined any further workup for possible leukemia or GI bleeds. Patient was seen by both Hematology and GI in his previous visit, a proximally 1 month ago. I discussed the above-mentioned with the patient, patient has not change his mind. Patient is agreeable to get blood but does not want any significant interventions including bone marrow biopsy or colonoscopies. I discussed the risks versus benefits of a blood transfusion with the patient. Patient states that he has a transfusions in the past and is agreeable to proceed with a blood transfusion. Patient has signed the consent and it is in his chart. Patient was agreeable to a digital rectal exam, which was heme negative. Patient is still taking Coumadin for his mechanical valve. Bumex was given to the patient before the transfusion started, he has already CHF. Discussed with the patient's nurse that he will need slow rate infusion I discussed the patient with the Medicine team, patient being admitted. Differential Diagnosis Differential Diagnoses: The differential diagnosis associated with the presentation includes (CHF, GI bleed, chronic anemia, leukemia) Admission/Observation Consideration of admission/observation: Escalation of care including admission/observation considered Consult Healthcare Provider Management of the patient was discussed with: Hospitalist Lab Data [facility] Lab Attestation statement: I reviewed the patient's lab results. 03/15/25 16:04 03/15/25 16:04 Labs: Lab Results 03/15/25 03/15/25 Range/Units 16:04 17:51 WBC 3.2 L (4.8-10.8) X10*3/uL RBC 1.80 L (4.60-5.80) X10*6/uL Hgb 6.1 L* (14.0-18.0) g/dl Hct 18.1 L* (42.0-52.0) % MCV 100.6 H (80.0-98.0) fL MCH 33.9 H (27.0-33.0) pg MCHC 33.7 (31.0-36.0) g/dl RDW 17.2 H (11.0-16.0) % Plt Count 48 L (160-400) X10*3/uL MPV 11.1 (9.4-12.4) fL Immature Gran % (Auto) 0.3 (0.0-0.4) % Neut % (Auto) 22.0 L (45-73) % Lymph % (Auto) 49.8 H (20-40) % [place] % (Auto) 27.3 H (2-11) % Eos % (Auto) 0.3 (0-4) % Baso % (Auto) 0.3 (0-2) % Lymph # (Auto) 1.6 (1.2-4.9) X10*3/uL [place] # (Auto) 0.9 (0.1-1.2) X10*3/uL Eos # (Auto) 0.0 (0.0-0.4) X10*3/uL Baso # (Auto) 0.0 (0.0-0.2) X10*3/uL Abs Immat Gran (auto) 0.01 (0.00-0.03) X10*3/uL Absolute Neuts (auto) 0.7 L (2.0-8.3) x10*3/uL Absolute Nucleated RBC 12.200 H (0.0-0.012) X10*3/uL Nucleated RBC % (auto) 382.4 H (0.0-0.2) /100WBC PT 19.2 H (10.9-12.4) SEC INR 1.7 H (0.9-1.1) Sodium 144 (135-145) mmol/L Potassium 3.8 (3.3-5.1) mmol/L Chloride 109 H (96-108) mmol/L Carbon Dioxide 23 (22-29) mmol/L Anion Gap 16 (12-20) BUN 21 H (9-16) mg/dL Creatinine 1.53 H (0.5-1.4) mg/dL Estim Creat Clear Calc 45.3 Estimated GFR 44 Random Glucose 118 H (60-115) mg/dL Calcium 9.3 (8.4-10.2) mg/dL Magnesium 1.9 (1.6-2.6) mg/dL Total Bilirubin 2.6 H (0.0-1.0) mg/dL Direct Bilirubin 0.6 H (0.0-0.5) mg/dL AST 52 H (5-37) U/L ALT 13 (0-40) U/L Alkaline Phosphatase 77 (39-117) U/L Troponin I High Sens 41.9 H D (<3.5-35.0) ng/L NT-Pro-B Natriuret Pep 1369.2 H (<300) pg/mL Total Protein 6.7 (6.5-8.0) g/dL Albumin 3.8 (3.5-5.0) g/dL Stool Occult Blood NEGATIVE (NEGATIVE) COVID-19 ([place]) Negative (Negative) COVID-19 Clin Com See Note Influenza Type A ([place]) Negative (Negative) Influenza Type B ([place]) Negative (Negative) Influenza A & B Note See Note Blood Type B Positive Antibody Screen NEGATIVE Crossmatch See Detail Independent Interpretation I performed an independent interpretation of an: EKG and Plain X-Ray Radiology Impression Discussion of test interpretation with radiology: I have reviewed the radiologist's reading. Radiologist Impression: Mildly elevated right hemidiaphragm, unchanged. Left-sided AICD device in place with leads extending into the right atrium, right ventricle, and coronary sinus. There has been a median sternotomy and aortic valve replacement. The cardiac, hilar, and mediastinal contours are normal. Aortic mural calcification. The lungs are clear bilaterally. There is no pneumothorax or pleural effusion. There is no focal osseous or soft tissue abnormality. There are degenerative spinal changes present. XR/XR chest 2V IMPRESSION: 1. No active pulmonary disease. 2. Left-sided 3-lead AICD device in place. 3. Prior sternotomy and aortic valve replacement. Critical Care Time Critical Care Time Critical Care Time: Yes Total Critical Care Time: 60 Attestation: I have personally provided critical care time. Time includes review of lab data, radiology results, discussion with consultants, and monitoring for potential decompensation. Intervention performed as documented. Discharge Plan Discharge Clinical Impression: Acute on chronic anemia, Acute exacerbation of CHF (congestive heart failure), KIKI (acute kidney injury) Patient Disposition: Admitted As Inpatient Print Language: Vincentian
[2025-03-15 16:21] LABS: INTERNATIONAL NORM RATIO 1.7 (0.9-1.1); Prothrombin Time 19.2 SEC (10.9-12.4)
[2025-03-15 16:23] LABS: Imm Gran Abs Auto 0.01 X10*3/uL (0.00-0.03); Imm Gran Pct Auto 0.3 % (0.0-0.4); Lymphocytes Absolute Auto 1.6 X10*3/uL (1.2-4.9); MANUAL DIFF FLAG SCAN; Mean Corpuscular HGB Conc 33.7 g/dl (31.0-36.0); Mean Corpuscular Hemoglobin 33.9 pg (27.0-33.0); Mean Corpuscular Volume 100.6 fL (80.0-98.0); NRBC Abs Auto 12.200 X10*3/uL (0.0-0.012); Red Blood Count 1.80 X10*6/uL (4.60-5.80); SCAN SMEAR FLAG 1; White Blood Count 3.2 X10*3/uL (4.8-10.8)
[2025-03-15 16:26] LABS: NRBC Pct Auto 382.4 /100WBC (0.0-0.2); Platelet Count 48 X10*3/uL (160-400)
[2025-03-15 16:31] LABS: Alanine Aminotransferase 13 U/L (0-40); Albumin Level 3.8 g/dL (3.5-5.0); Alkaline Phosphatase 77 U/L (39-117); Anion Gap 16 (12-20); Aspartate Amino Transferase 52 U/L (5-37); Blood Urea Nitrogen 21 mg/dL (9-16); Calcium 9.3 mg/dL (8.4-10.2); Carbon Dioxide 23 mmol/L (22-29); Chloride 109 mmol/L (96-108); Creatinine Clr Calc Pharmacy 45.3; Estimated Glomerular Filt Rate 44; Magnesium 1.9 mg/dL (1.6-2.6); Potassium 3.8 mmol/L (3.3-5.1); Sodium 144 mmol/L (135-145); Total Protein 6.7 g/dL (6.5-8.0)
[2025-03-15 16:32] LABS: COVID-19 Test Negative (Negative); IDNOW Serial# 55D5AD1C; IDNOW Serial# 58CA691E; Influenza B2 Negative (Negative); NT Pro B Type Natriuretic Pept 1369.2 pg/mL (<300); Troponin-I High Sensitivity 41.9 ng/L (<3.5-35.0)
[2025-03-15 16:34] LABS: Hemoglobin 6.1 g/dl (14.0-18.0)
[2025-03-15 16:35] LABS: Hematocrit 18.1 % (42.0-52.0)
--- NOTE | 2025-03-15 17:22 | PC.NURSE ---
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 Pt notably sob/guzman when he was moved from the to hospital stretcher- rr was equal/lungs diminished throughout, notable 3-4+ edema BLE- pt states this has been chronic and not new to him since a prior blood clot to the lower extremities. at baseline pt ambulates with a cane. call segal within reach, plan of care ongoing
[2025-03-15 18:01] LABS: OBS Int Ctl Valid YES; OBS1 NEGATIVE (NEGATIVE)
--- NOTE | 2025-03-15 19:15 | PM.IMHP ---
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 Pt currently denying chest pain, SOB at rest but has edema +1 BLE's and it has been more difficult for pt to ambulate. Stool via rectal exam negative for occult currently. Repeat testing has been requested. Pt did receive 0.5 Bumex initially in the ED. Pt has remained on RA. Troponins 41.9 and BNP 1340. Pt is on coumadin for mechanical Aoritc Valve and INR today is 1.7. Pt was admitted 02/07/2025 for same issue which was first presentation and pt was seen by GI and Heme/ONC and refgused all requested interventions to include EGD, Colonscopy, Bone Marrow Biopsy. Pt does have HCP, his Nephew Tato Holden, and this insurance writer spoke with HCP to review reason for admission today. Nephew aware that pt has been refusing interventions but did have questions about the pocedure, Bone marrow biopsy and would like to speak with Heme/ONC tomorrow by phone if possible. Pt does appear to have capacity at this time but is making nonsensical correlations to include Well if I have not lost wt, then why am I losing blood? . Reviewed goals of care with patient at the bedside noting his past admission with hematology and GI and currently patient is requesting and okay with/palliative care consultation. Patient states he is 85 years old he has lived a good life but his overall perception of his goals and needs are not fully realized at this time. Patient aware that Hematology Oncology will be by in the morning to confirm a 2nd time that patient does not want intervention including a bone marrow biopsy for diagnostic purposes. Patient at this time is refusing intervention including treatment involving radiation/chemotherapy or any other option. Review of Systems Review of Systems: Pt denies chest pain, shortness of breath at rest, reporting increasing edema with difficult mobility, denies any falls or hits to the head. Patient does have an understanding that he is on Coumadin for his mechanical aortic valve and not for history of DVT in his right lower extremity. Patient denies any nausea, vomiting or abdominal pain. She reports mild bruising intermittently on the upper extremities. Yes all other systems are reviewed and are negative [facility] Medical History Anemia Shortness of breath Palliative care patient ICD (implantable cardioverter-defibrillator) in place Chronic diastolic CHF (congestive heart failure) Ulcerative colitis DVT (deep venous thrombosis) CAD (coronary artery disease) Leg swelling Chronic anemia Peripheral edema Arthritis Annual physical exam Bilateral knee pain History of bad fall Multiple joint pain Fall on ice Morbid obesity with BMI of 40.0-44.9, adult Cardiomyopathy History of left bundle branch block Hypertension Fatigue Current use of anticoagulant therapy Cognitive capacity: Currently alert and orientated x3 Functional capacity: independent ambulation Family History Father Kidney problem Mother Cancer Surgical History History of cardiac cath History of aortic valve replacement Social History Household Members: None Housing: House Do you presently have visiting nurse or other home services: No Alcohol intake: current Alcohol intake frequency: a few times a month Alcohol type: beer Patient Tobacco Use Status: Former Tobacco user Years Smoked: 23 +/- Smoked in Last 30 Days: No Use of substances other than those prescribed or required for medical reasons: No Advance Directives: Yes Advance Directives on File: Yes Advance Directives Date on File: 02/07/25 service: No Current occupational status: retired Cognitive needs: Yes (cane) Hearing needs: No Vision needs: Yes (reading glasses) Ebola Risk: Travel/Contact With Anyone From Affected Area/s: No Has Patient Experienced Ebola Symptoms: No Meds Allergies Allergy/AdvReac Type Severity Reaction Status Date / Time Penicillins (PENICILLINS) Allergy Severe HIVES Verified 03/15/25 15:47 Active Medications: Current Medications Acetaminophen (Acetaminophen 325 Mg Tablet) 650 mg PO Q6H PRN PRN Reason: Pain, Mild 1-3,fever,headache Albuterol/Ipratropium (Albuterol/Iprat 2.5/0.5mg 3 Ml Ampul.Neb) 3 ml INHALE Q4H PRN PRN Reason: Shortness of Breath/Wheezing Calcium Carbonate (Calcium Carbonate 750 Mg Tab.Chew) 750 mg PO Q4H PRN PRN Reason: Heartburn Lactated Ringer's (Lr) 1,000 mls @ 100 mls/hr IVCONT .Q10H JASON Magnesium Hydroxide (Milk Of Magnesia 30 Ml Oral.Susp) 30 ml PO DAILY PRN PRN Reason: Constipation Melatonin (Melatonin 3 Mg Tablet) 6 mg PO BEDTIME PRN PRN Reason: Insomnia Ondansetron HCl (Ondansetron Hcl 4 Mg/2 Ml Vial) 4 mg IVPUSH Q8H PRN PRN Reason: Nausea and Vomiting Polyethylene Glycol (Polyethylene Glycol 3350 17 Gm Powd.Pack) 17 gm PO DAILY PRN PRN Reason: Constipation Sodium Chloride (0.9 % Sodium Chloride Flush 3 Ml Syringe) 3 ml IVFLUSH QSHIFT [facility] Home Medications ?Medication ?Instructions ?Recorded ?Confirmed ?Last Taken ?Type multivit,calc,mins-folic 240 1 tab PO DAILY 07/26/21 03/15/25 03/14/25 History mcg-vit K1 30 mcg-lycopene 300 mcg tablet (One-A-Day Men's Complete) acetaminophen 650 mg 650 mg PO Q6H PRN Pain 07/22/24 03/15/25 03/14/25 History tablet,extended release furosemide 40 mg tablet 40 mg PO DAILY@1700 02/07/25 03/15/25 03/14/25 History furosemide 40 mg tablet (Lasix) 80 mg PO DAILY 02/07/25 03/15/25 03/15/25 History warfarin 5 mg tablet 2.5 mg PO SUTUWEFRSA@1800 02/07/25 03/15/25 03/13/25 History warfarin 5 mg tablet 5 mg PO MOTH@1800 02/07/25 03/15/25 03/14/25 History lisinopril 40 mg tablet 40 mg PO DAILY 03/15/25 03/15/25 03/14/25 History Physical Exam Vital Signs and Narrative: Vital Signs: Last Vital Signs Temp 98.1 F 03/15/25 17:01 Pulse 106 H 03/15/25 17:01 Resp 16 03/15/25 17:01 BP 118/55 L 03/15/25 17:01 Pulse Ox 98 03/15/25 17:01 O2 Del Method Room Air 03/15/25 17:01 BMI result Body Mass Index 38.1 Alert and orientated X3, able to follow commands and protect airway Neuro: CN II-X11 intact, no deficits, visual acuity intact EYES: PERRLA, EOM intact, sclerae nonicteric ENT: hearing intact, no issues with swallowing, uvula midline, lips moist, nares patent no epistaxis, dentures are loose Cardiac: S1 S2 RRR, no murmur, no JVD, no edema in Lower ext, AICD left upper chest Pulmonary: lungs diminished bilaterally Abdominal: BS active in all 4 quadrants, no guarding, tenderness, rebounding, distention, obesity MSK: strength 3-4/5 upper and lower extremities : no CVA tenderness no bladder distension Extremities: +1 edema in lower extremities, PT and DP pulses palpable +2, skin warm Psych: mood stable, judgement and insight fair to good, patient experienced better understanding with education and information Skin: Mild bruising noted upper extremities, chronic discoloration bilateral lower extremities Results Labs 03/15/25 16:04 03/15/25 16:04 Labs: Laboratory Results - last 24 hr 03/15/25 03/15/25 16:04 17:51 MCV 100.6 H MCH 33.9 H MCHC 33.7 RDW 17.2 H Plt Count 48 L MPV 11.1 Immature Gran % (Auto) 0.3 Neut % (Auto) 22.0 L Lymph % (Auto) 49.8 H [place] % (Auto) 27.3 H Eos % (Auto) 0.3 Baso % (Auto) 0.3 Lymph # (Auto) 1.6 [place] # (Auto) 0.9 Eos # (Auto) 0.0 Baso # (Auto) 0.0 Abs Immat Gran (auto) 0.01 Absolute Neuts (auto) 0.7 L Absolute Nucleated RBC 12.200 H Nucleated RBC % (auto) 382.4 H PT 19.2 H INR 1.7 H Anion Gap 16 Estim Creat Clear Calc 45.3 Estimated GFR 44 Random Glucose 118 H Calcium 9.3 Magnesium 1.9 Total Bilirubin 2.6 H Direct Bilirubin 0.6 H AST 52 H ALT 13 Alkaline Phosphatase 77 Troponin I High Sens 41.9 H D NT-Pro-B Natriuret Pep 1369.2 H Total Protein 6.7 Albumin 3.8 Stool Occult Blood NEGATIVE COVID-19 ([place]) Negative COVID-19 Clin Com See Note Influenza Type A ([place]) Negative Influenza Type B ([place]) Negative Influenza A & B Note See Note Blood Type B Positive Antibody Screen NEGATIVE Crossmatch See Detail ECG Attestation: I personally reviewed and interpreted this ECG as follows: (Atrial sensed ventricular paced rhythm, rate 103) Imaging Radiologist's Impressions: Impressions Chest X-Ray 03/15/25 16:10 IMPRESSION: 1. No active pulmonary disease. 2. Left-sided 3-lead AICD device in place. 3. Prior sternotomy and aortic valve replacement. 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 Patient currently has capacity and is expressing no further intervention noting that he may have undiagnosed bone marrow cancer contributing to his acute anemia. Patient understands that hospice and palliative Care will be consulted at his request and also understands that Hematology Oncology will be by in the morning to confirm that patient is deferring intervention and treatment. Patient's healthcare proxy has also been updated of patient's admission. It does not appear healthcare proxy has to be invoked at this time Acute anemia with previous admission 02/07/2025 same issue Pt seen by Hematology for possible bone marrow cancer last admission, refused at that time BMB, reconsulting heme for final review, pt is opting for Hospice/palliative care and may have questions Pt seen by GI last admission, pt refused EGD and colonoscopy - we will not consult as patient continues to refuse EGD and colonoscopy and stool for occult were negative Hospice consultation requested, pt did not want to change MOLST this evening Transfusing 2 units now in ED Lasix IV in between 2 units for noted HF hx and edema BLE's, CXR negative for acute pulmonary disease Protonix IV BID Pt is on coumadin for mechanical Aortic Valve, this will be on hold overnight - INR currently 1.7 with daily INR - did consult Cardiology and they are requesting reassessment in the morning and reconsult if needed (regarding need for coumadin, pt deferring tx for possible bone marrow cancer contrubuting to acute anemia and overall plan for likely Hopsice care) Patient understands that he can not be without Coumadin for the mechanical aortic valve due to multiple complications including stroke and this, at the same time, may further complicate the anemia HFpEF, Elevated BNP Last echo done 02/15/2025 with an EF of 55-60% Aortic valve area 1.21 noting mechanical valve with no aortic valve regurgitation Patient does have bilateral lower extremity edema compromising mobility Continue diuretics as tolerated Daily weights, measure eyes nose Low-sodium diet Fluid allowance 1500 mL daily History of mechanical aortic valve for aortic stenosis INR 1.7 patient on Coumadin Noted acute anemia secondary to possible undiagnosed bone marrow cancer - patient refusing workup we will let Hematology Oncology know in the morning, plan is for hospice/palliative care Cardiology consulted: Requesting reassessment in the a.m. and please reconsult if Cardiology as needed Patient aware that he can not be without Coumadin due to the presence of mechanical valve complications including clot formation, stroke: May need to ask Cardiology to provide opinion noting the acute anemia may persist as patient is deferring treatment and/or diagnostic studies Osteoarthritis with decreased mobility PT eval ordered Case management ordered to help with discharge planning noting patient lives alone and is at high risk for fall Tylenol PRN Hypertension Blood pressure currently controlled Continue diuretics Await med rec and continue metoprolol with the lisinopril as indicated DVT prophylaxis: On hold due to acute anemia and transfusion Med rec pending Currently full code status Quality Stroke Does the patient have a stroke diagnosis?: No Reason for No Anti-thrombotic by Day Two: Contraindicated (acute anemia ) VTE Prior VTE?: Yes VTE Risk Level:: Medical - moderate - high VTE Device Contraindication: N/A - Device Ordered VTE Drug Contraindication: Treatment Not Indicated
[2025-03-15] MEDS: Bumetanide 1 MG/4 ML VIAL 0.5 MG IVPUSH (19:25)
--- NOTE | 2025-03-15 19:26 | ECG_ITS ---
Test Reason : ABNORMAL LABS Blood Pressure : */* mmHG Vent. Rate : 103 BPM Atrial Rate : 103 BPM P-R Int : 142 ms QRS Dur : 160 ms QT Int : 416 ms P-R-T Axes : 43 102 -30 degrees QTcB Int : 544 ms Atrial-sensed ventricular-paced rhythm Abnormal ECG When compared with ECG of 07-Feb-2025 13:50, Vent. rate has increased by 16 bpm Referred By: Usha Fregoso Electronically Signed By: MERVAT GARCIA
--- NOTE | 2025-03-15 20:16 | PHA.MEDREC ---
Addendum entered by Tejinder Finnegan [facility] 03/15/25 20:24: [facility] Original Note: Pharmacy Consult ? Medication Reconciliation Pharmacy has completed the medication reconciliation. Patient was able to confirm his medications. Patient confirmed Furosemide 80 mg (2x 40 mg) QAM and Furosemide 40 mg QPM, Warfarin 5 mg Friday and and Warfarin 2.5 mg all other days. Patient had his morning dose of Furosemide and took all his other medications last night.
[2025-03-15] MEDS: Furosemide 20 MG/2 ML VIAL IVPUSH (23:18)
[2025-03-16 01:54] VITALS: BP 133/62; PULSE 95; RESP 20; TEMP 37.2; O2SAT 95
[2025-03-16 02:34] VITALS: BP 139/74; PULSE 92; RESP 16; TEMP 37.1
[2025-03-16 06:00] VITALS: BMI 39.7
[2025-03-16 06:11] LABS: Mean Corpuscular HGB Conc 33.7 g/dl (31.0-36.0); Mean Corpuscular Hemoglobin 33.0 pg (27.0-33.0); Mean Corpuscular Volume 98.1 fL (80.0-98.0); NRBC Abs Auto 5.640 X10*3/uL (0.0-0.012); Red Blood Count 2.12 X10*6/uL (4.60-5.80)
[2025-03-16 06:14] LABS: INTERNATIONAL NORM RATIO 1.7 (0.9-1.1); Prothrombin Time 19.7 SEC (10.9-12.4)
[2025-03-16 06:27] LABS: Anion Gap 11 (12-20); Blood Urea Nitrogen 19 mg/dL (9-16); Calcium 8.6 mg/dL (8.4-10.2); Carbon Dioxide 24 mmol/L (22-29); Chloride 109 mmol/L (96-108); Creatinine Clr Calc Pharmacy 57.6; Estimated Glomerular Filt Rate 56; Potassium 3.4 mmol/L (3.3-5.1); Sodium 141 mmol/L (135-145)
[2025-03-16 06:47] LABS: NRBC Pct Auto 237.0 /100WBC (0.0-0.2); Platelet Count 34 X10*3/uL (160-400); White Blood Count 2.4 X10*3/uL (4.8-10.8)
[2025-03-16 06:50] LABS: Hemoglobin 7.0 g/dl (14.0-18.0)
[2025-03-16 06:51] LABS: Hematocrit 20.8 % (42.0-52.0)
[2025-03-16 07:28] VITALS: BP 119/60; PULSE 93; RESP 15; TEMP 36.9; O2SAT 98
--- NOTE | 2025-03-16 08:36 | P.PNIM_ITS ---
Subjective Subjective Date of Service: 03/16/25 Physical Exam 2 Vital Signs: Vital Signs: Last Vital Signs Temp 98.4 F 03/16/25 07:28 Pulse 93 03/16/25 07:28 Resp 15 03/16/25 07:28 BP 119/60 03/16/25 07:28 Pulse Ox 98 03/16/25 07:28 O2 Del Method Room Air 03/16/25 07:28 BMI result Body Mass Index 39.7 Objective Data Active Medications Acetaminophen (Acetaminophen 325 Mg Tablet) 650 mg PO Q6H PRN PRN Reason: Pain, Mild 1-3,fever,headache Albuterol/Ipratropium (Albuterol/Iprat 2.5/0.5mg 3 Ml Ampul.Neb) 3 ml INHALE Q4H PRN PRN Reason: Shortness of Breath/Wheezing Calcium Carbonate (Calcium Carbonate 750 Mg Tab.Chew) 750 mg PO Q4H PRN PRN Reason: Heartburn Magnesium Hydroxide (Milk Of Magnesia 30 Ml Oral.Susp) 30 ml PO DAILY PRN PRN Reason: Constipation Melatonin (Melatonin 3 Mg Tablet) 6 mg PO BEDTIME PRN PRN Reason: Insomnia Ondansetron HCl (Ondansetron Hcl 4 Mg/2 Ml Vial) 4 mg IVPUSH Q8H PRN PRN Reason: Nausea and Vomiting Pantoprazole Sodium (Pantoprazole Sodium 40 Mg/10 Ml Vial) 40 mg IVPUSH BID@0630,1630 [facility] Last Admin: 03/16/25 06:12 Dose: 40 mg Documented By: AMBER Polyethylene Glycol (Polyethylene Glycol 3350 17 Gm Powd.Pack) 17 gm PO DAILY PRN PRN Reason: Constipation Sodium Chloride (0.9 % Sodium Chloride Flush 3 Ml Syringe) 3 ml IVFLUSH QSHIFT [facility] Last Admin: 03/16/25 01:13 Dose: Not Given Documented By: AMBER Non-Admin Reason: IV Running Labs 03/16/25 05:49 03/16/25 05:49 Labs: Laboratory Results - last 24 hr 03/15/25 03/15/25 03/16/25 16:04 17:51 05:49 MCV 100.6 H 98.1 H MCH 33.9 H 33.0 MCHC 33.7 33.7 RDW 17.2 H 16.1 H Plt Count 48 L 34 L D MPV 11.1 11.5 Immature Gran % (Auto) 0.3 Neut % (Auto) 22.0 L Lymph % (Auto) 49.8 H [place] % (Auto) 27.3 H Eos % (Auto) 0.3 Baso % (Auto) 0.3 Lymph # (Auto) 1.6 [place] # (Auto) 0.9 Eos # (Auto) 0.0 Baso # (Auto) 0.0 Abs Immat Gran (auto) 0.01 Absolute Neuts (auto) 0.7 L Absolute Nucleated RBC 12.200 H 5.640 H Nucleated RBC % (auto) 382.4 H 237.0 H PT 19.2 H 19.7 H INR 1.7 H 1.7 H Anion Gap 16 11 L Estim Creat Clear Calc 45.3 57.6 Estimated GFR 44 56 Random Glucose 118 H 98 Calcium 9.3 8.6 D Magnesium 1.9 Total Bilirubin 2.6 H Direct Bilirubin 0.6 H AST 52 H ALT 13 Alkaline Phosphatase 77 Troponin I High Sens 41.9 H D NT-Pro-B Natriuret Pep 1369.2 H Total Protein 6.7 Albumin 3.8 Stool Occult Blood NEGATIVE COVID-19 ([place]) Negative COVID-19 Clin Com See Note Influenza Type A ([place]) Negative Influenza Type B ([place]) Negative Influenza A & B Note See Note Blood Type B Positive Antibody Screen NEGATIVE Crossmatch See Detail Quality Stroke Does the patient have a stroke diagnosis?: No Reason for No Anti-thrombotic by Day Two: Contraindicated (acute anemia ) VTE Prior VTE?: Yes VTE Risk Level:: Medical - moderate - high VTE Device Contraindication: N/A - Device Ordered VTE Drug Contraindication: Treatment Not Indicated
[2025-03-16] MEDS: 0.9 % Sodium Chloride Flush 3 ML SYRINGE IVFLUSH (08:43)
--- NOTE | 2025-03-16 09:06 | PM.HEMONCCN ---
Subjective - Subjective Chief complaint: Weakness Patient: known to practice within the last 3 years Consult date: 03/16/25 Requesting Physician: Hospitalist team Primary Care Provider: Tim Shaw MD Contract Designer Utilized?: No - Arabic Speaking HPI - Consult Narrative Reason for consult: Worsening anemia/pancytopenia Narrative: Tad Villar is a 85 year old male with past medical history significant for CAD, ischemic cardiomyopathy status post AICD, mechanical AVR on warfarin, right lower extremity DVT/lymphedema, history of ulcerative colitis who is admitted for recurrent acute on chronic anemia with hemoglobin of 6 gram/dL. This is his 2nd admission in the last 1 month for anemia. He was directed by his PCP to go to the ER because of severe anemia. Patient remains on warfarin because of mechanical aortic valve replacement. He denies any bruising or overt bleeding. He lives alone with his dog. He has neighbors and a nephew that help him. He continues to drive and carry out all IADLs. A he received 2 units blood transfusion and he feels well. He wants to go home. He does not want to undergo any further testing. Review of Systems - Constitutional Reports as per HPI, Reports lack of energy, Reports malaise, Denies weight loss - Cardiovascular Reports no additional cardiovascular complaints - Respiratory Reports no additional respiratory complaints - Gastrointestinal Reports no additional gastrointestinal complaints [facility] Medical History: Medical History (Last Reviewed 03/15/25 @ 21:46 by TATIANNA Trent) Anemia Annual physical exam Arthritis Bilateral knee pain CAD (coronary artery disease) Cardiomyopathy Chronic anemia Chronic diastolic CHF (congestive heart failure) Current use of anticoagulant therapy DVT (deep venous thrombosis) Fall on ice Fatigue History of bad fall History of left bundle branch block Hypertension ICD (implantable cardioverter-defibrillator) in place Leg swelling Morbid obesity with BMI of 40.0-44.9, adult Multiple joint pain Palliative care patient Peripheral edema Shortness of breath Ulcerative colitis Functional capacity: independent ambulation Family History: Family History (Last Reviewed 03/15/25 @ 21:46 by TATIANNA Trent) Father Kidney problem Mother Cancer Surgical History: Surgical History (Last Reviewed 03/15/25 @ 21:46 by TATIANNA Trent) History of aortic valve replacement History of cardiac cath Social History: Social History (Last Reviewed 03/15/25 @ 21:46 by Ashley Tsai [facility] Living Situation History: Household Members: None Housing: House Do you presently have visiting nurse or other home services: No Alcohol History Details: 1. How often do you have a drink containing alcohol?: a. Never AUDIT-C Alcohol total score: 0 Tobacco History: Patient Tobacco Use Status: Former Tobacco user Years Smoked: 23 +/- Smoked in Last 30 Days: No Substance Use History: Use of substances other than those prescribed or required for medical reasons: No Advance Directives: Advance Directives: Yes Advance Directives on File: Yes Advance Directives Date on File: 02/07/25 Nutrition Assessment: Nutrition Risks: No Nutritional Risk Occupation Assessmet: service: No Current occupational status: retired - Travel History Ebola Risk: Travel/Contact With Anyone From Affected Area/s: No Has Patient Experienced Ebola Symptoms: No Home Medications and Allergies Current Medications: Current Medications Acetaminophen (Acetaminophen 325 Mg Tablet) 650 mg PO Q6H PRN PRN Reason: Pain, Mild 1-3,fever,headache Albuterol/Ipratropium (Albuterol/Iprat 2.5/0.5mg 3 Ml Ampul.Neb) 3 ml INHALE Q4H PRN PRN Reason: Shortness of Breath/Wheezing Calcium Carbonate (Calcium Carbonate 750 Mg Tab.Chew) 750 mg PO Q4H PRN PRN Reason: Heartburn Magnesium Hydroxide (Milk Of Magnesia 30 Ml Oral.Susp) 30 ml PO DAILY PRN PRN Reason: Constipation Melatonin (Melatonin 3 Mg Tablet) 6 mg PO BEDTIME PRN PRN Reason: Insomnia Ondansetron HCl (Ondansetron Hcl 4 Mg/2 Ml Vial) 4 mg IVPUSH Q8H PRN PRN Reason: Nausea and Vomiting Pantoprazole Sodium (Pantoprazole Sodium 40 Mg/10 Ml Vial) 40 mg IVPUSH BID@0630,1630 [facility] Last Admin: 03/16/25 06:12 Dose: 40 mg Polyethylene Glycol (Polyethylene Glycol 3350 17 Gm Powd.Pack) 17 gm PO DAILY PRN PRN Reason: Constipation Sodium Chloride (0.9 % Sodium Chloride Flush 3 Ml Syringe) 3 ml IVFLUSH QSHIFT [facility] Last Admin: 03/16/25 08:43 Dose: 3 ml Home Medications ?Medication ?Instructions ?Recorded ?Confirmed ?Type multivit,calc,mins-folic 240 1 tab PO DAILY 07/26/21 03/15/25 History mcg-vit K1 30 mcg-lycopene 300 mcg tablet (One-A-Day Men's Complete) acetaminophen 650 mg 650 mg PO Q6H PRN Pain 07/22/24 03/15/25 History tablet,extended release furosemide 40 mg tablet 40 mg PO DAILY@1700 02/07/25 03/15/25 History furosemide 40 mg tablet (Lasix) 80 mg PO DAILY 02/07/25 03/15/25 History warfarin 5 mg tablet 2.5 mg PO SUTUWEFRSA@1800 02/07/25 03/15/25 History warfarin 5 mg tablet 5 mg PO MOTH@1800 02/07/25 03/15/25 History lisinopril 40 mg tablet 40 mg PO DAILY 03/15/25 03/15/25 History Allergies Allergy/AdvReac Type Severity Reaction Status Date / Time Penicillins (PENICILLINS) Allergy Severe HIVES Verified 03/15/25 15:47 Physical Exam Vital signs: Vital Signs Temp 98.4 F 03/16/25 07:28 Pulse 93 03/16/25 07:28 Resp 15 03/16/25 07:28 BP 119/60 03/16/25 07:28 Pulse Ox 98 03/16/25 07:28 O2 Del Method Room Air 03/16/25 07:28 Intake & Output 03/15/25 03/16/25 03/16/25 18:59 06:59 18:59 Intake Total 700 / 700 221 / 221 Output Total 875 / 875 Balance -175 / -175 221 / 221 Urine Output (Average ml/kg/hr) 0.60 0.60 Intake: Intake, Oral Amount 221 / 221 Intake (Blood Product) Amount 700 / 700 Red Blood Cells (E0336) Unit 350 / 350 [id number] Red Blood Cells (E0336) Unit 350 / 350 [id number] Output: Output, Urine Amount 875 / 875 Other: Weight 117.027 kg 122 kg Weight 122 kg - Constitutional Present: no acute distress, obese - Routine HEENT Exam Head: Present: normal inspection Eye: Present: EOMI, conjunctivae pale. Absent: scleral icterus - Routine Neck Exam Present: supple - Routine Respiratory Exam Present: CTAB. Absent: accessory muscle use - Routine Cardiovascular Exam Cardiovascular: Present: RRR, S1, S2 - Routine Abdominal Exam Present: normal bowel sounds. Absent: mass - Routine Extremities Exam Absent: calf tenderness - Routine Skin Exam Present: intact - Routine Neurological Exam Present: alert, oriented X3 Hem/Onc Consult Result - Labs CBC & Chem 7: 03/16/25 05:49 03/16/25 05:49 Labs: Short CBC 03/15/25 03/16/25 Range/Units 16:04 05:49 WBC 3.2 L 2.4 L (4.8-10.8) X10*3/uL Hgb 6.1 L* 7.0 L* (14.0-18.0) g/dl Hct 18.1 L* 20.8 L* (42.0-52.0) % Plt Count 48 L 34 L D (160-400) X10*3/uL BMP 03/15/25 03/16/25 16:04 05:49 Sodium 144 141 Potassium 3.8 3.4 Chloride 109 H 109 H Carbon Dioxide 23 24 BUN 21 H 19 H Creatinine 1.53 H 1.23 Calcium 9.3 8.6 D Liver Function 03/15/25 Range/Units 16:04 Total Bilirubin 2.6 H (0.0-1.0) mg/dL Direct Bilirubin 0.6 H (0.0-0.5) mg/dL AST 52 H (5-37) U/L ALT 13 (0-40) U/L Alkaline Phosphatase 77 (39-117) U/L Albumin 3.8 (3.5-5.0) g/dL Assessment and Plan Patient Active problem list reviewed?: Yes (1) Anemia Status: Acute Assessment and plan: 1. This is a 85-year-old male was diagnosed with acute anemia/pancytopenia in January 2025. Prior to that he had a normal hemoglobin of 13.8 gram/dL in August 2024. In January he presented with shortness of breath and found to have hemoglobin of 6.5 gram/dL. Hematological workup revealed elevated LDH with haptoglobin <8 and no hematinic deficiencies. 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 I had discussed with the patient the most likely cause of his worsening anemia/pancytopenia is underlying bone marrow process such as myelodysplastic syndrome or acute leukemia. Patient declined any further intervention such as bone marrow biopsy. Patient understands that he may have acute bone marrow process that a serious and can be fatal if untreated. He does not want to go any further intervention such as scans or bone marrow biopsy. He is not interested in receiving chemotherapy but is agreeable for transfusion support. He wants to go home, he is agreeable for VNA services for management of weakness. Home PT/OT. 2. Pancytopenia/thrombocytopenia. His platelet counts are well below 50 K. I would recommend stopping anticoagulation given his anemia and thrombocytopenia. He is also at risk of falls and bleeding. Thank you for the consultation. Please make appointment with Hematology next week. - Time Spent With Patient Time Spent with Patient (in minutes): 25 Additional Coding: - Additional E/M codes Complex E/M visit Add On: CPT G2211
[2025-03-16 09:28] LABS: Reticulocytes Absolute 0.079 X10*6/uL (0.026-0.095)
[2025-03-16 10:08] VITALS: BP 145/67; PULSE 84; RESP 18; O2SAT 100
--- NOTE | 2025-03-16 10:55 | MHC.CM.PN ---
CM met with Patient at bedside, in the ED and addressed the IMM with him, providing Patient with the original and a copy will be placed on the chart. Patient lives alone in a house, uses a cane to assist with mobility, and is active with [facility]. Patient is not interested in Hospice at this time; his goal is to return home and resume present services. MATTY has initiated and will follow for dc planning. PCP is Dr. Shaw and Patient's car is here for transport at in. Rc, listed on the HCP, has ; per Patient, his Cousin/Tato Holden is his Agent.
--- NOTE | 2025-03-16 12:40 | P.DS_ITS ---
DS: Providers Provider Date of Service: 03/16/25 Date of admission: 03/15/25 19:09 Date of discharge: 03/16/25 Primary care physician: Tim Shaw MD Consults: 03/15/25 20:23 Consult to Hematology / Oncology Routine Consulting Provider: [facility] [place] Oncology/Hematology Reason for consultation: acute anemia, ? bone marrow cancer Has provider been notified: No 03/15/25 21:43 Consult to Hospice Routine Comment: pt has capacity, does not want tx for susp Bone Ma DS: Diagnosis Discharge Diagnosis (1) Anemia: Status: Acute DS: Summary Hospital Course Hospital Course: A/C anemia Emeli -ve hemolysis 2/2 underlying BM process(?MDS) vs leukemia vs GI pathology - s/p 2 UPRBC with optimal response Worsening pancytopenia/thrombocytopenia-stopped warfarin this admission High-risk of strokes given stopping warfarin on a patient with mechanical AVR- patient acceptable of the risk 85 yo male with PMH acute anemia requiring transfusion 02/07/2025 possible differential per Heme is bone marrow cancer, Mechanical AVR on coumadin, RLE DVT (20 years prior), HFpEF, AICD, CABG X4, CAD, HLD, OA, Obesity, HTN presents to ED after OP PCP labs revealed ABLA (Hb 6.1). Pt was transfused 2 U leuko reduced PRBC with optimal response and repeat was 7. Patient is on warfarin secondary to MAVR. Given his worsening anemia, pancytopenia with possible etiology be an underlying bone marrow processes such as myelodysplastic anemia or leukemia and patient refusing bone marrow biopsy with multiple documentations by Heme-Onc and GI to undergo any endoscopy procedures, risks versus benefits have been weighed and patient has a high-risk of has bled score, falls, intracranial hemorrhage given that we are stopping warfarin. 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 Patient states he understands his medical condition and is aware of his autonomy and would not want to pursue chemo or invasive diagnostic or therapeutic procedures. His nephew who is the healthcare proxy was also at the bedside and I explained to him about the process of bone marrow biopsy-and the patient did state that he does not want it. He is aware of refusal of diagnostic procedures. MOLST form changed to DNR DNI given above chronic medical conditions Hospice consulted-patient has [place] visiting nurses, patient is palliative care appropriate Home PTOT For chronic medical conditions no changes have been made Patient was adamant that he would like to go home, was hemodynamically stable, needs to follow up CBC in 2 days by his PCP, has a follow-up appointment with Hematology Oncology-Dr. Arrieta in a week labs done earlier revealed HGB 6.1 and pt requires transfusion and need for admission Time spent discussing smoking cessation with patient: more than 10 minutes (Spent over 40 minutes explaining to the patient and his nephew about plan of care) Status at Discharge Functional status at discharge: uses cane/walker Overall status at discharge: patient is progressing back to baseline Time Attestation Discharge Coordination Time (in mins): 45 Quality: Safe Use of Opioids Does Pt have an Active Cancer Diagnosis on the Problem List?: Yes Opioid Measure Date for [facility] Report: 02/14/25 Opioid Measure Time for [facility] Report: 14:16 Quality: Stroke Does the patient have a stroke diagnosis?: No Physical Exam Exam: Exam: General: AOx3, no acute distress Resp: CTA bilaterally CVS: S1, S2, RRR GI: +BS, NT, no distention Skin: Warm, dry Extremities: Ambulating with a cane Psych: Appropriate affect Vital Signs: Vital Signs: Last Vital Signs Temp 98.4 F 03/16/25 07:28 Pulse 84 03/16/25 10:08 Resp 18 03/16/25 10:08 BP 145/67 H 03/16/25 10:08 Pulse Ox 100 03/16/25 10:08 O2 Del Method Room Air 03/16/25 10:08 BMI result Body Mass Index 39.7 DS: Data Data Completed and Pending Completed studies during hospitalization [Text1]: Procedures Transfusion of Nonautologous Red Blood Cells into Peripheral Vein, Percutaneous Approach (02/07/25) Labs on day of discharge: Laboratory Results - last 24 hr 03/15/25 03/15/25 03/16/25 16:04 17:51 05:49 WBC 3.2 L 2.4 L RBC 1.80 L 2.12 L Hgb 6.1 L* 7.0 L* Hct 18.1 L* 20.8 L* MCV 100.6 H 98.1 H MCH 33.9 H 33.0 MCHC 33.7 33.7 RDW 17.2 H 16.1 H Plt Count 48 L 34 L D MPV 11.1 11.5 Immature Gran % (Auto) 0.3 Neut % (Auto) 22.0 L Lymph % (Auto) 49.8 H Nuckolls % (Auto) 27.3 H Eos % (Auto) 0.3 Baso % (Auto) 0.3 Lymph # (Auto) 1.6 Nuckolls # (Auto) 0.9 Eos # (Auto) 0.0 Baso # (Auto) 0.0 Abs Immat Gran (auto) 0.01 Absolute Neuts (auto) 0.7 L Absolute Nucleated RBC 12.200 H 5.640 H Nucleated RBC % (auto) 382.4 H 237.0 H Absolute Retic 0.079 Percent Retic 3.7 H Immature Retic Fraction 39.7 H Retic Hgb Equivalent 33.3 PT 19.2 H 19.7 H INR 1.7 H 1.7 H Sodium 144 141 Potassium 3.8 3.4 Chloride 109 H 109 H Carbon Dioxide 23 24 Anion Gap 16 11 L BUN 21 H 19 H Creatinine 1.53 H 1.23 Estim Creat Clear Calc 45.3 57.6 Estimated GFR 44 56 Random Glucose 118 H 98 Haptoglobin < 8 L Calcium 9.3 8.6 D Magnesium 1.9 Total Bilirubin 2.6 H Direct Bilirubin 0.6 H AST 52 H ALT 13 Alkaline Phosphatase 77 Lactate Dehydrogenase 471 H Troponin I High Sens 41.9 H D NT-Pro-B Natriuret Pep 1369.2 H Total Protein 6.7 Albumin 3.8 Stool Occult Blood NEGATIVE COVID-19 ([place]) Negative COVID-19 Clin Com See Note Influenza Type A ([facility]) Negative Influenza Type B ([facility]) Negative Influenza A & B Note See Note Blood Type B Positive Antibody Screen NEGATIVE Crossmatch See Detail Discharge Plan Discharge Anticipated Discharge Date/Time: 03/16/25 12:33 Patient Disposition: Home Health Service Discharge Diagnosis: A/C anemia Emeli -ve hemolysis 2/2 underlying BM process(?MDS) vs leukemia vs GI pathology Referrals: [facility] [Other] - 1 Week [facility] [Outside] - 1 Week Justine Arrieta MD [Physician, Hematology & Oncology] - 1 Week Referral Note: f/u of in pt hosp Tim Shaw MD [Primary Care Provider, Internal Medicine] - 1 Week Discharge Medications: Continued atorvastatin 40 mg tablet 40 mg PO DAILY Qty: 90 1RF metoprolol succinate 50 mg tablet extended release 24 hr 50 mg PO DAILY Qty: 90 3RF furosemide 40 mg tablet 40 mg PO DAILY@1700 furosemide [Lasix] 40 mg tablet 80 mg PO DAILY Rx Instructions: 40 mg orally 2 tablets in the am and 1 tablet in the pm; lisinopril 40 mg tablet 40 mg PO DAILY One-A-Day Men's Complete 240 mcg-30 mcg- 300 mcg tablet 1 tab PO DAILY acetaminophen 650 mg tablet extended release 650 mg PO Q6H PRN (Reason: Pain) (DME) cane Device See Rx Instructions .Route Qty: 1 1RF Rx Instructions: Folding cane please.Use daily due to unsteady on feet and recurrent falls Discontinued warfarin 5 mg tablet 5 mg PO MOTH@1800 Protocol: Dose Management Condition: Friday Dose/Route: 2.5 mg Instruction: 0.5 x 5 mg tablets Condition: Friday Dose/Route: 5 mg Instruction: 1 x 5 mg tablet Condition: Friday Dose/Route: 5 mg Instruction: 1 x 5 mg tablet Condition: Friday Dose/Route: 2.5 mg Instruction: 0.5 x 5 mg tablets Condition: Dose/Route: 5 mg Instruction: 1 x 5 mg tablet Condition: Friday Dose/Route: 2.5 mg Instruction: 0.5 x 5 mg tablets Condition: Friday Dose/Route: 2.5 mg Instruction: 0.5 x 5 mg tablets Protocol Text: Adjustment Start Date: Friday03/15/25 INR Value: 1.4 INR Date: 03/15/25 Recheck Date: 03/17/25 Additional Instructions: AVOID ALL GREENS NEXT 2 DAYS, EAT ORANGE AND REDS TODAY, GO TO ER WITH ANY C/P INCREASE SOB OR HEADACHES warfarin 5 mg tablet 2.5 mg PO SLADE@1800 Protocol: Dose Management Condition: Friday Dose/Route: 2.5 mg Instruction: 0.5 x 5 mg tablets Condition: Friday Dose/Route: 5 mg Instruction: 1 x 5 mg tablet Condition: Friday Dose/Route: 5 mg Instruction: 1 x 5 mg tablet Condition: Friday Dose/Route: 2.5 mg Instruction: 0.5 x 5 mg tablets Condition: Dose/Route: 5 mg Instruction: 1 x 5 mg tablet Condition: Friday Dose/Route: 2.5 mg Instruction: 0.5 x 5 mg tablets Condition: Friday Dose/Route: 2.5 mg Instruction: 0.5 x 5 mg tablets Protocol Text: Adjustment Start Date: Friday03/15/25 INR Value: 1.4 INR Date: 03/15/25 Recheck Date: 03/17/25 Additional Instructions: AVOID ALL GREENS NEXT 2 DAYS, EAT ORANGE AND REDS TODAY, GO TO ER WITH ANY C/P INCREASE SOB OR HEADACHES Discharge Orders: Discharge Order (Routine); Ordered 03/16/25 Ordered By: Lilly Ordoñez Diet: Advance to usual diet Activity on Discharge: As tolerated Stand Alone Forms: Patient Portal Discharge page Print Language: Swazi Other Ambulatory Orders: Complete Blood Count Auto Diff (Routine) Timeframe: 2 Days Facility: [facility] - Location: Laboratory Ordered By: Lilly Ordoñez Care Plan Goals: Transfusion support, follow-up at Heme-Onc transfusion center Hospice Home with VNA services Home PTOT Health Concerns: Hospice care Patient does not want to be in pain Is aware of his health conditions and would like to be discharged on hospice Plan of Treatment: * Hospice is being consulted * Home PTOT, VNA services * CBC Q 2 days to be followed with outpatient Heme-Onc and PCP * Patient aware that stopping warfarin puts him at a higher risk of stroke and was able to verbalize this Assessment: See above Patient Instructions: Warfarin (By mouth), Anemia (DC), Stroke (DC) Discharge Date/Time: 03/16/25 13:34
--- NOTE | 2025-03-16 12:41 | MHC.CM.PN ---
Patient has been medically cleared for dc to home today. Patient is active with [facility], who has been made aware of today's dc and the fact that Patient is now interested in Hospice.
[2025-03-16 12:46] VITALS: BP 129/72; PULSE 89; RESP 16; TEMP 36.7; O2SAT 98
== END 2025-03-16 13:34 | disposition home health service (06) | DRG 808 ==
LOC: HO.ED 19:31 → HO.EDOVER 19:36
PROVIDERS: Internal Medicine; Physician Assistant Medical; Admitting Provider Nurse Practitioner Family; Emergency Provider Emergency Medicine; PCP Internal Medicine; Visit Provider Student in an Organized Health Care Education/Training Program
DX: D59.4 Other nonautoimmune hemolytic anemias (principal); I50.33 Acute on chronic diastolic (congestive) heart failure; D61.818 Other pancytopenia; C95.90 Leukemia, unspecified not having achieved remission; Z66 Do not resuscitate; I11.0 Hypertensive heart disease with heart failure; I25.10 Atherosclerotic heart disease of native coronary artery without angina pectoris; I25.5 Ischemic cardiomyopathy; Z95.1 Presence of aortocoronary bypass graft; D46.9 Myelodysplastic syndrome, unspecified; Z95.810 Presence of automatic (implantable) cardiac defibrillator; Z95.2 Presence of prosthetic heart valve; Z20.822 Contact with and (suspected) exposure to COVID-19; Z79.01 Long term (current) use of anticoagulants; Z79.899 Other long term (current) drug therapy
CPT/HCPCS: 36415; 71046; 80048; 80076; 82272; 83010; 83615; 83735; 83880; 84484; 85025; 85027; 85045; 85610; 86850; 86900; 86901; 86923; 87502; 87635; 93005; 93970; 99285; J1938; J1939; J2470; P9016

== ENCOUNTER → 2025-03-15 15:53 | Outpatient (BNV) | payer MEDICARE, SELFPAY | PROVIDERS: Emergency Provider Emergency Medicine; PCP Internal Medicine; Visit Provider Radiology Diagnostic Radiology | DX: R60.0 Localized edema (principal) | CPT/HCPCS: 71046; 93970 ==

== ENCOUNTER 2025-03-15 19:09 | Outpatient (BNV) | payer MEDICARE, SELFPAY | END 2025-03-15 19:26 | PROVIDERS: Admitting Provider Nurse Practitioner Family; Emergency Provider Emergency Medicine; PCP Internal Medicine; Visit Provider Internal Medicine | DX: R94.31 Abnormal electrocardiogram [ECG] [EKG] (principal); Z95.0 Presence of cardiac pacemaker | CPT/HCPCS: 93010 ==

== ENCOUNTER → 2025-03-15 19:09 | Outpatient (BNV) | payer MEDICARE, SELFPAY | PROVIDERS: Admitting Provider Nurse Practitioner Family; Emergency Provider Emergency Medicine; PCP Internal Medicine; Visit Provider Nurse Practitioner Family | DX: D64.9 Anemia, unspecified (principal) | CPT/HCPCS: 99223; 99239 ==

== ENCOUNTER → 2025-03-15 19:09 | Outpatient (BNV) | payer MEDICARE, SELFPAY | PROVIDERS: Admitting Provider Nurse Practitioner Family; Emergency Provider Emergency Medicine; PCP Internal Medicine; Visit Provider Internal Medicine | DX: D61.818 Other pancytopenia (principal) | CPT/HCPCS: 99222 ==

== ENCOUNTER → 2025-03-25 09:44 | Outpatient (BNV) | payer MEDICARE, SELFPAY | PROVIDERS: PCP Internal Medicine; Visit Provider Nurse Practitioner Family | DX: D64.9 Anemia, unspecified (principal); D69.6 Thrombocytopenia, unspecified | CPT/HCPCS: 99213 ==

== ENCOUNTER 2025-03-30 10:26 | Outpatient (AMB) | payer MEDICARE, SELFPAY ==
[2025-03-30 10:46] VITALS: BP 100/60; PULSE 93; BMI 38.2
--- NOTE | 2025-03-30 10:46 | A.OFFVIS_ITS ---
Vital Signs 03/30/25 10:46 Height 5 ft 9 in Weight 258 lb 13.163 oz BMI 38.2 BP 100/60 Blood Pressure Location Lt brachial Position Sitting Pulse 93 Pulse Source Pulse Oximeter Intake Visit Reasons: 1 mth fu per James Intake Note: 1 mth f/up per [facility] Return Checker Required: No Accompanied by: Self / Same As Patient Allergies Penicillins (PENICILLINS) Allergy (Severe, Verified 03/25/25 10:19) HIVES Medication List - Last Reconciled 03/31/25 by Timothy Jade MD acetaminophen ER 650 mg PO Q6H PRN atorvastatin 40 mg PO DAILY cane Folding cane please.Use daily due to unsteady on feet and recurrent falls furosemide 40 mg PO DAILY@1700 furosemide (Lasix) 80 mg PO DAILY lisinopril 40 mg PO DAILY metoprolol succinate ER 50 mg PO DAILY multivit,calc,euu-ZJ-I1-lycop 240 mcg-30 mcg- 300 mcg (One-A-Day Men's Complete) 1 tab PO DAILY HPI Comments Details: Pleasant 85-year-old gentleman here for follow-up. He has known history of previous bypass surgery and mechanical aortic valve replacement. He was seen for new onset heart failure and was found to have cardiomyopathy with severely reduced ejection fraction. 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 He was sent for a Bi V AICD placement which happened in February 2019 at [facility] by Dr. Cruz. His repeat echocardiogram in May 2019 showing ejection fraction of 50-55%. It also showed some moderate aortic stenosis and concern for patient prosthesis mismatch. He has chronic right lower extremity edema due to a blood clot in the past. He has been doing well since then. He has no chest discomfort shortness of breath. Clinically not in heart failure. Taking medications regularly. Stable on follow-up. 07/01/22: On follow-up he is doing well. He is sayng he wakes up in the middle night and cannot go back to sleep for few hours. He is saying he does not wake up for shortness of breath or PND. Overall clinically stable. 12/23/22: He returns for follow-up. He has been taking medications regularly. His denying any chest discomfort or significant shortness of breath. No significant orthopnea or PND. He has peripheral edema which is chronic. The right leg is worse than the left due to previous DVT. 04/28/23: He is here for f/u. BP is elevated. He has been doing well. No dyspnea or CP. 09/15/23: He returns for follow-up. He was seen in the office in June by our nurse practitioner. He was complaining of fatigue at that time. He had blood workup done which showed mildly elevated BNP level. He was referred for echocardiography which showed EF 60% with inferior inferolateral wall motion abnormality. Lasix was increased to 80 mg in the morning and 40 in the afternoon. He was only 80 mg once a day previously. He returns and he still has some fatigue. He said he started raking his lawn and has been feeling some barrels and taking them up hill. He is able to do somewhat more over the last week compared to before. He gets some shortness of breath going uphill. He feels tired easily. We discussed about sleep apnea previously because he is overweight. He is not interested in doing sleep study. 03/22/2024: He is here for follow-up. No chest pain or shortness of breath. He gets tired and has to take breaks. He is doing cardiac rehabilitation. Blood pressure well controlled. Chronic lower extremity edema which is stable. 05/31/2024: Tad is back for follow-up. He is saying he has significant arthritis in his knees and was told 10 years ago that he has severe arthritis. More recently he has been getting pains in his hands and shoulders. He said he was using Tylenol up to 2 times a day with some relief but asking whether he can have some better treatment for this. He is on Coumadin. Continues to have lower extremity edema which is chronic. His breathing is at baseline. He is saying that he was in cardiac rehabilitation where the nurses checked his pulse or oxygen level and told him to go to ER. He is unsure whether what exactly happened. We will get some more information from cardiac rehabilitation. 09/29/2024: He is here for follow-up. No chest discomfort. He is saying breathing is stable but he gets tired easily. He has lower extremity edema which has been stable. He is taking Lasix daily. Blood pressure is mildly elevated. His main issue is shoulder and knee pain due to arthritis. He is asking whether physiotherapy will help him. 02/07/25: He is here for f/u. He is saying that he has not been feeling well. He is short of breath with activities. He has has orthopnea. He is noticing more swelling in the legs. He has saw vascular surgery for assessment of his veins. He initially was advised to take Lasix 80 mg twice a day. He has been taking 80 in the morning and 40 in the afternoon and also missing some doses in the afternoon during the week. His blood pressure control otherwise good. He is also sneezing but does not have any obvious bronchitis like symptoms. 03/30/2025: Tad is here for follow-up. On last visit he was complaining of dyspnea and was sent to the emergency department for further workup. He did not appear to be in congestive heart failure but was diagnosed with pancytopenia at that time. He refused further workup and has been getting blood transfusions off and on. He has Coumadin has been stopped because of significant pancytopenia. He has refused bone marrow biopsy. We had detailed discussion about it today and I have explained to him that doing further workup may reveal something treatable but he feels that he is doing fine with blood transfusions and feels fine when he gets the blood. I have explained to him that this is not a fixed for the problem but he does not wish to do any further testing. [facility] Medical History Shortness of breath Palliative care patient ICD (implantable cardioverter-defibrillator) in place Chronic diastolic CHF (congestive heart failure) Ulcerative colitis DVT (deep venous thrombosis) CAD (coronary artery disease) Leg swelling Chronic anemia Peripheral edema Arthritis Annual physical exam Bilateral knee pain History of bad fall Multiple joint pain Fall on ice Morbid obesity with BMI of 40.0-44.9, adult Cardiomyopathy History of left bundle branch block Hypertension Fatigue Current use of anticoagulant therapy Surgical History History of cardiac cath History of aortic valve replacement Family History Father Kidney problem Mother Cancer Social History Household Members: None Housing: House Do you presently have visiting nurse or other home services: No Alcohol intake: current Alcohol intake frequency: a few times a month Alcohol type: beer Patient Tobacco Use Status: Former Tobacco user Years Smoked: 23 +/- Advance Directives Date on File: 02/07/25 service: No Current occupational status: retired Cognitive needs: Yes (cane) Hearing needs: No Vision needs: Yes (reading glasses) Review of Systems Const Denies chills, Denies fatigue, Denies fever(s), Denies frequent falls, Denies weakness, Denies weight gain and Denies weight loss ENT Denies dizziness Card Denies chest pain, Denies leg edema, Denies lightheadedness, Denies palpitations, Denies dyspnea and Denies dyspnea on exertion Resp Denies cough, Denies dyspnea and Denies dyspnea on exertion GI Denies hematochezia Musc Denies abnormal gait, Denies muscle weakness, Denies numbness, Denies radiating pain into limb and Denies tingling Neuro Denies abnormal gait, Denies dizziness, Denies frequent falls, Denies numbness, Denies tingling and Denies weakness Endo Denies fatigue and Denies palpitations Physical Exam Vital Signs: Last Vital Signs Pulse 93 03/30/25 10:46 BP 100/60 03/30/25 10:46 BMI result Body Mass Index 38.2 GENERAL APPEARANCE: in no acute distress, obese. NECK/THYROID: no carotid bruit, no jugular venous distention. SKIN: warm and dry. HEART: no murmurs, regular rate and rhythm, mechanical 2nd heart sound. LUNGS: Fine crackles both bases. ABDOMEN: normal, bowel sounds present, soft, nontender, nondistended. EXTREMITIES: 2+ edema bilaterally right more than left. PERIPHERAL PULSES: equal. NEUROLOGIC: nonfocal, alert and oriented. Assessment & Plan Assessment & Plan (1) S/P AVR: Code(s): Z95.2 - Presence of prosthetic heart valve Category: Surgical (2) Pancytopenia: Code(s): D61.818 - Other pancytopenia Category: Medical Plan [age] year gentleman who is here for follow-up. He has background history of coronary artery bypass surgery and mechanical aortic valve replacement. He had cardiomyopathy which was secondary to left bundle-branch block and had LACE ROLLER done with improvement in ejection fraction. He was doing fine till recently when he developed pancytopenia but he has refused further workup for this. I have explained to him that a bone marrow biopsy may reveal something treatable but he does not wish to do any testing. Unfortunately due to low platelet counts it is not safe to continue Coumadin on him and he has been off the Coumadin therapy. He understands that not being on Coumadin puts him at a risk of mechanical valve thrombosis which can be fatal. He is saying that he is doing fine with blood transfusions and does not wish to do any further testing. We will see him back in 3 months. Thank you for allowing me to participate in the care of your patient. Please feel free to contact me if you have any questions. Coding Level of Care Code Est Pt Level 4 (92175) Diagnoses S/P AVR Z95.2 Pancytopenia D61.818
--- OUTSIDE RECORDS SUMMARY | 2025-03-30 12:21 | XMS_ITS | Encounter Summary ---
Author Organization [facility] Address [address] [place] [address] Phone Care Team Providers Care Mica Splitter Name Role Phone Shadi Sevilla MD Primary Care Provider [phone] Encounter Details Date Type Department Care Team (Late st Contact Info) Description 07/14/2018 Ancillary Orders [facility] [address] [place] [address] Ivan Lopes MD [address] [place] [address] Dr [facility] [place] [address] [email or web address] Social History Tobacco Use Types Packs/Day Years [...] on filedocumented in this encounter Care Teams Mica Splitter Relationship Specialty Start Date End Date Shadi Sevilla MD PCP - General 04/03/17 documented as of this encounter Additional Source Comments The information contained in this document represents components of the legal health record. It is not the complete legal health record.[facility]
--- OUTSIDE RECORDS SUMMARY | 2025-03-30 12:22 | XMS_ITS | Encounter Summary ---
Author Organization [facility] Address [address] [place] [address] Phone Care Team Providers Care Box Toe Buffer Name Role Phone Shadi Sevilla MD Primary Care Provider [phone] Encounter Details Date Type Department Care Team (Late st Contact Info) Description 10/13/2018 Ancillary Orders [facility] [address] [place] [address] Ivan Lopes MD [address] [facility] [place] [address] [email or web address] Social History Tobacco Use Types Packs/Day Years [...] on filedocumented in this encounter Care Teams Box Toe Buffer Relationship Specialty Start Date End Date Shadi Sevilla MD PCP - General 04/03/17 documented as of this encounter Additional Source Comments The information contained in this document represents components of the legal health record. It is not the complete legal health record.[facility]
--- OUTSIDE RECORDS SUMMARY | 2025-03-30 12:22 | XMS_ITS | Encounter Summary ---
Author Organization [facility] Address [address] [facility] [address] [place] [address] Phone Care Team Providers Care Knit Goods Washer Name Role Phone Shadi Sevilla MD Primary Care Provider [phone] Encounter Details Date Type Department Care Team (Late st Contact Info) Description 04/05/2017 Ancillary Orders [facility] [address] [place] [address] Ivan Lopes MD [address] [place] [address] [email or web address] Social History Tobacco Use Types Packs/Day Years [...] on filedocumented in this encounter Care Teams Knit Goods Washer Relationship Specialty Start Date End Date Shadi Sevilla MD PCP - General 04/03/17 documented as of this encounter Additional Source Comments The information contained in this document represents components of the legal health record. It is not the complete legal health record.[facility]
--- OUTSIDE RECORDS SUMMARY | 2025-03-30 12:22 | XMS_ITS | Encounter Summary ---
Author Organization [facility] Address [address] [place] [address] Phone Care Team Providers Care Road Design Draftsperson Name Role Phone Shadi Sevilla MD Primary Care Provider [phone] Encounter Details Date Type Department Care Team (Latest Contact Info) Description 07/01/2017 Ancillary Orders [facility] [address], [address] [place] [address] Ivan Lopes MD [address] [place] [address] [email or web address] Complete heart block Social History [...] for device CHB. Examination: Device type: pacemaker Reinsurance Accountant: [employer] Thresholds, impedances, and sensing stable. [...] complete documented in this encounter Care Teams Road Design Draftsperson Relationship Specialty Start Date End Date Shadi Sevilla MD PCP - General 04/03/17 documented as of this encounter Additional Source Comments The information contained in this document represents components of the legal health record. It is not the complete legal health record.[facility]
--- OUTSIDE RECORDS SUMMARY | 2025-03-30 12:22 | XMS_ITS | Encounter Summary ---
Author Organization [facility] Address [address] [address] [place] [address] Phone Care Team Providers Care Prepress Specialist Name Role Phone Shadi Sevilla MD Primary Care Provider [phone] Encounter Details Date Type Department Care Team ([facility] Contact Info) Description 04/06/2018 Ancillary Orders Non-Invasive Cardiology [address] [place] [address] [place] [address] Ivan Lopes MD [address] [place] [address] [email or web address] Heart block Social History Tobacco Use [...] * DEVICE CHECK: PPM REMOTE INTERROGATION WITH TECHNOLOGY SALES SPECIALIST REVIEW (04/06/2018 10:03 AM EDT) Narrative Ivan Lopes MD - 04/08/2018 12:29 PM EDT Reason for appointment: Remote pacemaker interrogation HPI: Routine 3 month remote pacemaker interrogation. No device related complaints. Indication for device: Heart block. Examination: Device type: Pacemaker Adult Protective Caseworker: [employer] Mode: DDD LRL/UPL: 60/120 bpm [...] disorder documented in this encounter Care Teams Prepress Specialist Relationship Specialty Start Date End Date Shadi Sevilla MD PCP - General 04/03/17 documented as of this encounter Additional Source Comments The information contained in this document represents components of the legal health record. It is not the complete legal health record.[facility]
--- OUTSIDE RECORDS SUMMARY | 2025-03-30 12:22 | XMS_ITS | Clinical Summary ---
Author Organization [facility] Address [address] [facility] [address] [place] [address] Phone Care Team Providers Care Stereotyper Apprentice Name Role Phone Shadi Sevilla MD Primary [...] Coronary artery disease 09/10/2017 Overview (09/10/2017): [facility] AVR (ST J) WITH CABG X [...] EDT) SODIUM 140 133 - 146 mmol/L [facility] CHLORIDE 100 96 - 108 mmol/L [facility] POTASSIUM 4.1 3.3 - 5.1 mmol/L [facility] CO2 28 21 - 35 mmol/L [facility] BUN 20(H) 6 - 19 mg/dL [facility] CREATININE 1.00 0.5 - 1.5 mg/dL [facility] GLUCOSE 97 70 - 99 mg/dL [facility] CALCIUM 9.3 8.4 - 10.3 mg/dL [facility] EGFR 72 >59 mL/min/1.7 3m2 [facility] Comment:If patient is black, multiply result by 1.159. Estimated glomerular filtration rate calculated using the CKD-EPI equation. ANION GAP 16 10 - 20 mmol/L [facility] Blood 03/19/2018 7:55 AM EDT 03/19/2018 7:59 AM EDT Angel Bennett MD LAB BLOOD ORDERABLES Final Resu lt [address] [address] from Last 3 Months or Most Recently Relevant to Health Maintenance Insurance MEDICARE PART A & B [employer] SUPPLEMENT MEDICARE PART A & B 80/20 [employer] MEDEX SUPPLEMENT MEDICARE PART A & B 80/20 [employer] MEDEX SUPPLEMENT MEDICARE PART A & B [facility] MEDEX SUPPLEMENT MEDICARE PART A & B 80/20 [employer] MEDEX SUPPLEMENT MEDICARE PART A & B 80/20 [employer] MEDEX SUPPLEMENT MEDICARE PART A & B Member Subscriber Plan / Payer ( fective 2006-Present) Name:Tad Villar Member ID:[id number] Relation to Subscriber:Self Name:Tad Villar Subscriber ID:[id number] Payer ID:[id number] Group ID:Not on file Type:Medicare Address: [employer] [address] [place] [id number] [employer] MED[employer] SUPPLEMENT MEDICARE PART A & B 80/20 [employer] MEDEX SUPPLEMENT MEDICARE PART A & B [employer] SUPPLEMENT Member Subscriber Plan / Payer (Ef fective 2006-Present) Name:Tad Villar Relation to Subscriber:Self Name:TAD VILLAR Payer ID:[id number] (NAIC) Type:Indemnity Address: [address] [place] [id number] Care Teams Stereotyper Apprentice Relationship Specialty Start Date End Date Shadi Sevilla MD PCP - General 04/03/17 Additional Source Comments The information contained in this document represents components of the legal health record. It is not the complete legal health record.[facility]
--- OUTSIDE RECORDS SUMMARY | 2025-03-30 12:22 | XMS_ITS | Encounter Summary ---
Author Organization [facility] Address [address] [place] [address] Phone Care Team Providers Care Rn Recovery Name Role Phone Shadi Sevilla MD Primary Care Provider [phone] Encounter Details Date Type Department Care Team (Late st Contact Info) Description 04/06/2018 Ancillary Orders [facility] [address] [place] [address] Ivan Lopes MD [address] [place] [address] [place] [address] [email or web address] Social History Tobacco Use Types Packs/Day Years [...] on filedocumented in this encounter Care Teams Rn Recovery Relationship Specialty Start Date End Date Shadi Sevilla MD PCP - General 04/03/17 documented as of this encounter Additional Source Comments The information contained in this document represents components of the legal health record. It is not the complete legal health record.[facility]
--- OUTSIDE RECORDS SUMMARY | 2025-03-30 12:22 | XMS_ITS | Encounter Summary ---
Author Organization [facility] Address [address] [facility] [address] [facility] [address] [place] [address] Phone Care Team Providers Care Clinical Services Director Name Role Phone Shadi Sevilla MD Primary Care Provider [phone] Encounter Details Date Type Department Care Team (Late Contact Info) Description 07/14/2018 Ancillary Orders Non-Invasive Cardiology [address] [place] [address] [place] [address] Ivan Lopes MD [address] [place] [address] [email or web address] Heart block Social History Tobacco Use Types [...] * DEVICE CHECK: PPM REMOTE INTERROGATION WITH COAL BRIQUETTE MACHINE OPERATOR REVIEW (07/14/2018 4:15 PM EST) Narrative Ivan Lopes MD - 07/16/2018 2:09 PM EST Reason for appointment: Remote pacemaker interrogation HPI: Routine 3 month remote pacemaker interrogation. No device related complaints. Indication for device: Heart block. Examination: Device type: Pacemaker Glove Wrapper: [employer] Mode: DDD LRL/UPL: 60/120 bpm [...] disorder documented in this encounter Care Teams Clinical Services Director Relationship Specialty Start Date End Date Shadi Sevilla MD PCP - General 04/03/17 documented as of this encounter Additional Source Comments The information contained in this document represents components of the legal health record. It is not the complete legal health record.[facility]
--- OUTSIDE RECORDS SUMMARY | 2025-03-30 12:22 | XMS_ITS | Encounter Summary ---
Author Organization [facility] Address [address] [facility] [facility] [address] [place] [address] Phone Care Team Providers Care Adjunct Art History Instructor Name Role Phone Shadi Sevilla MD Primary Care Provider [phone] Encounter Details Date Type Department Care Team (Late Contact Info) Description 10/13/2018 Ancillary Orders Non-Invasive Cardiology [address] [place] [address] [place] [address] Ivan Lopes MD [address] [place] [address] [email or web address] Heart block Social History Tobacco Use Types [...] * DEVICE CHECK: PPM REMOTE INTERROGATION WITH QUARTZ MOUNTER REVIEW (10/13/2018 12:38 PM EDT) Narrative Ivan Lopes MD - 10/14/2018 1:25 PM EDT Reason for appointment: Remote pacemaker interrogation HPI: Routine 3 month remote pacemaker interrogation. No device related complaints. Indication for device: Heart block. Examination: Device type: Pacemaker Circus Supervisor: [employer] Mode: DDD LRL/UPL: 60/120 [...] disorder documented in this encounter Care Teams Adjunct Art History Instructor Relationship Specialty Start Date End Date Shadi Sevilla MD PCP - General 04/03/17 documented as of this encounter Additional Source Comments The information contained in this document represents components of the legal health record. It is not the complete legal health record.[facility]
--- OUTSIDE RECORDS SUMMARY | 2025-03-30 12:22 | XMS_ITS | Encounter Summary ---
Author Organization [facility] Address [address] [place] [address] Phone Care Team Providers Care Hand Binder Stripper Name Role Phone Shadi Sevilla MD Primary Care Provider [phone] Encounter Details Date Type Department Care Team (Latest Contact Info) Description 04/05/2017 Ancillary Orders [facility] [address], [address] [place] [address] Ivan Lopes MD [address] [place] [address] [email or web address] Diagnosis unknown Social History Tobacco Use [...] unknown documented in this encounter Care Teams Hand Binder Stripper Relationship Specialty Start Date End Date Shadi Sevilla MD PCP - General 04/03/17 documented as of this encounter Additional Source Comments The information contained in this document represents components of the legal health record. It is not the complete legal health record.[facility]
--- OUTSIDE RECORDS SUMMARY | 2025-03-30 12:22 | XMS_ITS | Encounter Summary ---
Author Organization [facility] Address [address] [place] [id number] Phone Care Team Providers Care Guardian Ad Litem Name Role Phone Shadi Sevilla MD Primary Care Provider [phone] Encounter Details Date Type Department Care Team (Late st Contact Info) Description 05/18/2018 Ancillary Orders [facility] [address] [place] [address] Angel Bennett MD [address] [address] [email or web address] Social History Tobacco Use Types Packs/Day [...] on filedocumented in this encounter Care Teams Guardian Ad Litem Relationship Specialty Start Date End Date Shadi Sevilla MD PCP - General 04/03/17 documented as of this encounter Additional Source Comments The information contained in this document represents components of the legal health record. It is not the complete legal health record.[facility]
--- OUTSIDE RECORDS SUMMARY | 2025-03-30 12:22 | XMS_ITS | Encounter Summary ---
Author Organization [facility] Address [address] [place] [address] Phone Care Team Providers Care Supply Chain Business Analyst Name Role Phone Shadi Sevilla MD Primary Care Provider [phone] Encounter Details Date Type Department Care Team (Latest Contact Info) Description 05/18/2018 Ancillary Orders [facility] [address] [place] [address] Angel Bennett MD [address] [place] [phone] [email or web address] Coronary artery disease involving sitka coronary artery of sitka heart without angina pectoris Social History Tobacco [...] Visit Diagnoses Diagnosis Coronary artery disease involving sitka coronary artery of sitka heart without angina pectoris documented in this encounter Care Teams Supply Chain Business Analyst Relationship Specialty Start Date End Date Shadi Sevilla MD PCP - General 04/03/17 documented as of this encounter Additional Source Comments The information contained in this document represents components of the legal health record. It is not the complete legal health record.[facility]
== END 2025-03-30 11:34 | disposition home or self-care (01) ==
PROVIDERS: PCP Internal Medicine; Visit Provider Internal Medicine Cardiovascular Disease
DX: Z95.2 Presence of prosthetic heart valve (principal); D61.818 Other pancytopenia
CPT/HCPCS: 99214

== ENCOUNTER → 2025-03-30 10:26 | Outpatient (BNVA) | payer MEDICARE, SELFPAY | PROVIDERS: PCP Internal Medicine; Visit Provider Internal Medicine Cardiovascular Disease | DX: D61.818 Other pancytopenia (principal); Z95.2 Presence of prosthetic heart valve | CPT/HCPCS: 99212 ==